=== PATIENT | female | born 1945 | race Caucasian/White ===

== ENCOUNTER → 2019-04-26 | Outpatient (CLI) | payer SELFPAY | PROVIDERS: Family Provider Family Medicine; Visit Provider Thoracic Surgery (Cardiothoracic Vascular Surgery) | DX: R09.89 Other specified symptoms and signs involving the circulatory and respiratory systems (principal) | CPT/HCPCS: 93880 ==

== ENCOUNTER 2019-06-07 12:43 | Observation (INO) | payer MEDICARE, OTHER, MEDICAID, SELFPAY ==
[2019-06-07] VITALS (56 sets, daily range): BP systolic 105–152; BP diastolic 50–86; PULSE 76–98; RESP 12–29; TEMP 36.6–37.1; O2SAT 94–99
--- NOTE | 2019-06-07 06:00 | XACV_ITS ---
Ht: 160 cm Wt: 73 kg BSA: 1.83 m2 Gender: Female : 1945 Any Known Allergies: Other Exam Priority: Routine Procedure(s): Procedure Description: Diagnostic procedure Procedure Description: Right Heart Catheterization Procedure Description: O2 saturation Procedure Description: Coronary Angiography Diagnostic Cath Status: Elective Diagnostic Findings LM has 0% stenosis. LAD has 0% stenosis. RCA has 0% stenosis. mCIRC: Mild 30% stenosis, REDDY: 3 flow. Coronary angiography shows right dominance. Conclusions There is mild coronary artery disease with one vessel disease. Indication for left and right heart CATHETERIZATION: Preop examination before aortic valve surgery. Recommendations 1-Return to inpatient for close monitoring and routine cath care2-Risk factor modification for secondary prevention3-Refer to CT surgery for assessment of aortic valve replacement4-Continue optimal medical management5-Follow up with Dr. Deluca in four weeks and your primary care in 10 days. Pressures Phase:Rest AO : 140 mmHg / 59 mmHg ( 89 mmHg ) @ 4:34:00 AM RV : 31 mmHg / -5 mmHg / @ 4:26:00 AM 34 mmHg / -7 mmHg / @ 4:31:00 AM PA : 34 mmHg / 9 mmHg ( 18 mmHg ) @ 4:25:00 AM RA : a wave = v wave = mean = 0 mmHg @ 4:28:00 AM a wave = v wave = mean = 0 mmHg @ 4:30:00 AM O2 Content Phase:Rest PA : O2 Content O2: 74.6 % @ 4:34:00 AM Saturations Phase:Rest AO : 93 % @ 4:28:00 AM RA : 74 % @ 4:30:00 AM RV : 72 % @ 4:25:00 AM PA : 75 % @ 4:34:00 AM Cardiac Output Phase:Rest Mario : 5 l/min @ 4:34:00 AM Mario Cardiac Index: 3 L/min/m2 @ 4:34:00 AM Clinical Evaluation EBL: 5mL-10mL Procedural Details Procedure Consent Obtained. Pre-Procedure Time Out. Identified patient by full name and date of as verbalized by the patient/guarantor. Does the consent match the physician's order: Yes. Accurate & Complete Informed Consent: Yes. Inpatient/Outpatient History & Physical on Chart: Yes. If H&P is completed, is and addenduem needed: No; If yes, is the addendum complete: N/A. Visualize and Verify Site with Patient/Guarantor: N/A. Relevant Radiology Images available: N/A. Pre-op teaching completed and patient verbalized understanding. The risks, benefits, and alternatives of sedation and/or procedure were discussed by physician. The patient agrees to continue. Procedure started. Correct patient, site and procedure confirmed by cath team. PERRLA. Strong, equal hand furnishings conservator bilaterally. Lungs clear x 5 lobes. IV Site on Arrival: 22 gauge in the right anticubital. IV Fluids: 0.9% NaCl at KVO. 0 mL infused prior to car barn laborer. Pre Procedural Pulses: bilateral dorsalis pedis was 2+. Pre Procedural Pulses: bilateral posterior tibial was Doppled. Pre Procedural Pulses: bilateral radial was 1+. bilateral groins was prepped with chloroprep then draped in the usual sterile fashion. Physician notified. Baseline sample Acquired. HR: 79 BPM. Equipment: 6F - Femoral. Cardiac Cath Pack. ACIST Manifold Kit Model BT 2000. Heparinized Saline (2 units/mL), 1000 mL bag. Physician arrived. Cardiovascular Instability: No. Physician scrubbed in. Immediate Pre-Procedure Time Out. Correct Patient: Yes; Correct Procedure: Yes; Correct Site: Yes; Correct Patient Position: Yes; Correct Supplies: Yes; Dried Flammable Prep: Yes; Blood Products Available: N/A;. Lidocaine 1% infiltrated to the right groin. Venous access obtained with a micropuncture set. Arterial access obtained with micropuncture set. [place]-Joanne MON catheter inserted through venous sheath. [place]-Joanne out. A 5 gambian JL4 catheter in over wire through femoral artery sheath. Multiple views taken of left coronary artery. Catheter removed over the standard wire. A CRD 5F JR4 Diagnostic Catheter was advanced over the wire and used for Right coronary angiography. Multiple views taken of right coronary artery. Physician scrubbed out. A Manual Compression was successful obtaining hemostatsis at the Right Femoral artery insertion site. A Manual Compression was successful obtaining hemostatsis at the Right Femoral vein insertion site. Sheath(s) removed and manual pressure held until hemostasis was achieved. Sterile 4x4 and Op-site applied to the puncture site. No oozing or hematoma noted. Post sheath removal instructions were given and the patient verbalized understanding. Post Procedure: Pulses reassessed and unchanged. PERRLA. Strong, equal hand furnishings conservator bilaterally. No VTE prophylaxis required. Medication's Wasted: Lidocaine 1% = 10 mL. Medication's Wasted: Heparin = 1000 units. Medication's Wasted: Other = morphine 3 mg. Total IV fluids: 69.4 mL. Post-op diagnosis: severe aorta valve stenosis, pre op, normal coronaries. Complications: none. Estimated blood loss: 5mL-10mL. [facility] Clinical Fraility Score: 4: Vulnerable. Lead Process Engineer Indications: Valvular Disease. Chest Pain Symptom Assessment: Atypical Angina. Procedure completed. Patient transferred by stretcher to CPRU. Vital chart was stopped. Site: Right Femoral vein Sheath Size: 6 Fr Hemostasis Method: Manual Compression Hemostasis Success: Successful Site: Right Femoral artery Sheath Size: 5 Fr Hemostasis Method: Manual Compression Hemostasis Success: Successful Procedure Medications Start: 10:04 AM Stop: 10:04 AM Medication: Versed Amount: 1 mg Route: I.V. Start: 10:04 AM Stop: 10:04 AM Medication: Morphine Amount: 1 mg Route: I.V. Start: 10:35 AM Stop: 10:35 AM Medication: Versed Amount: 1 mg Route: I.V. I, the attending physician, have reviewed and verified all procedure medications. Yes, all medications given per verbal order History/Risk Factors Hypertension: Yes Dyslipidemia: No Peripheral Arterial Disease (PAD): No Myocardial Infarction ([place]): No Obesity: No Renal Disease: No Tobacco Use: Former Prior Interventions PCI: No CABG: No Valve Surgery: No Report Signatures Finalized by:Brent Deluca MD on 06/16/2019 1:26:21 PM
[2019-06-07] MEDS: diphenhydrAMINE 50 mg Capsule PO (08:11)
[2019-06-07 08:49] LABS: INR 1.03 (0.8-1.2)
[2019-06-07 08:59] LABS: Anion Gap 17.4 (5-19); Blood Urea Nitrogen 17 mg/dL (8-23); Calcium 9.6 mg/dL (8.5-10.5); Carbon Dioxide 28 mmol/L (22-29); Chloride 101 mmol/L (98-107); Glucose 123 mg/dL (65-115); Osmolality Calculated 292 mOsm/kg (285-295); Potassium 4.4 mmol/L (3.5-5.1); Sodium 142 mmol/L (136-145)
[2019-06-07 09:12] LABS: Basophils # 0.1 10^3/uL (0.0-0.1); Basophils % 0.6 %; Eosinophils # 0.1 10^3/uL (0.0-0.8); Eosinophils % 1.6 %; Hemoglobin 14.6 g/dL (11.5-15.3); Lymphocytes # 1.9 10^3/uL (0.8-4.8); Lymphocytes % 21.3 %; Mean Corpuscular HGB Conc 32.4 g/dL (30.0-36.0); Mean Corpuscular Hemoglobin 30.6 pg (28.0-34.0); Mean Corpuscular Volume 94.3 fL (81-99); Mean Platelet Volume 11.1 fL (7.4-10.4); Monocytes # 0.9 10^3/uL (0.2-0.9); Monocytes % 10.3 %; Neutrophils # 5.9 10^3/uL (1.8-7.7); Neutrophils % 65.6 %; Nucleated Red Blood Cells % 0 %; Platelet Count 219 10^3/cmm (130-400); Red Blood Count 4.77 10^6/uL (4.1-5.3); Red Cell Distribution Width 12.6 % (12.1-15.1); White Blood Count 8.9 10^3/uL (4.0-10.0)
--- NOTE | 2019-06-07 09:18 | P.HP_ITS ---
Providers/Chief Complaint Primary Care Provider: Mandeep Madrigal MD Chief Complaint: heart cath History of Present Illness Nancy Brasher is a 74 year old female Past medical history significant for COPD worsening of shortness of breath dizziness and recently and severe aortic stenosis. She was referred to Dr. Luciano for assessment in regards to aortic valve replacement. Today she is here for preop left and right heart catheterization . According to her she continued to worsen with shortness of breath and had dizzy spells. Calculated aortic valve area by echo is 0.8 cm? with mean gradient of 50mmHg. Velocity across the aortic valve was 4.7 m/s. She denies PND orthopnea. Review of Systems Const: Denies: fever or body aches Card: Reports: chest pain Resp: Reports: shortness of breath GI: Denies: abdominal pain, nausea or vomiting Neuro: Denies: headache or numbness in extremities Psych: Denies: anxiety Yong/Lymph: Reports: easy bruising Medications/Allergies Home Medications Medication Instructions Recorded Confirmed Last Taken Type Abilify 10 mg PO DAILY 05/16/19 06/06/19 Unknown History Ambien 10 mg PO BEDTIME 05/16/19 06/06/19 Unknown History Dexilant 60 mg PO DAILY 05/16/19 06/06/19 Unknown History Silenor 3 mg PO DAILY 05/16/19 06/06/19 Unknown History cetirizine 10 mg PO DAILY 05/16/19 06/06/19 Unknown History estradiol 0.5 mg PO DAILY 05/16/19 06/06/19 Unknown History fluticasone propionate 1 puff INHALATION DAILY 05/16/19 06/06/19 Unknown History gabapentin 100 mg PO DAILY 05/16/19 06/06/19 Unknown History lisinopril 2.5 mg PO DAILY 05/16/19 06/06/19 Unknown History montelukast 10 mg PO DAILY 05/16/19 06/06/19 Unknown History rivastigmine [Exelon] 1 patch TRANSDERMAL DAILY 05/16/19 06/06/19 Unknown History simvastatin 40 mg PO BEDTIME 05/16/19 06/06/19 Unknown History venlafaxine 150 mg PO DAILY 05/16/19 06/07/19 06/06/19 19:30 History Allergies Allergy/AdvReac Type Severity Reaction Status Date / Time buspirone Allergy Unknown Verified 05/16/19 11:03 cefotaxime [From Claforan] Allergy ALGY-Rash Verified 05/16/19 11:03 etodolac Allergy Unknown Verified 05/16/19 11:03 fentanyl Allergy Unknown Verified 06/06/19 13:52 metronidazole [From Flagyl] Allergy ALGY-Rash Verified 05/16/19 11:03 rofecoxib [From Vioxx] Allergy ALGY-Rash Verified 05/16/19 11:03 sertraline [From Zoloft] Allergy ALGY-Rash Verified 05/16/19 11:03 Sulfa (Sulfonamide Allergy ALGY-Rash Verified 05/16/19 11:03 Antibiotics) valacyclovir [From Valtrex] Allergy ALGY-Rash Verified 05/16/19 11:03 PFSH Acute PFSH: Statuses (acute, chronic, etc) shown below reflect problem list status as previously entered and may not be historically accurate Medical History (Updated 06/07/19 @ 09:27 by Brent Deluca MD) Aortic stenosis, severe (Acute) Arthropathy, unspecified (Acute) HTN (hypertension) (Acute) Irritable bowel syndrome (Acute) Peripheral vertigo (Acute) RLS (restless legs syndrome) (Acute) Sleep apnea (Acute) Surgical History (Updated 06/07/19 @ 09:27 by Brent Deluca MD) History of appendectomy (Acute) Hx of cholecystectomy (Acute) Social History Smoking and tobacco status: former smoker Quit status (tobacco): has quit using tobacco Vitals/I&O/Wt Last Vital Signs Temp 97.9 F 06/07/19 08:40 Pulse 70 06/07/19 09:00 Resp 12 06/07/19 09:00 BP 112/66 06/07/19 09:00 Pulse Ox 97 06/07/19 09:00 Physical Exam Narrative: EXAM NARRATIVE: GENERAL: Patient is alert, awake and oriented x3. NECK: No jugular vein distension. HEENT: No cyanosis. No icterus. No pallor. HEART: Regular S1 3/6 ejection murmur, rub or gallop. LUNGS: Clear to auscultate bilaterally. ABDOMEN: Soft, nontender and nondistended. Positive bowel sounds. No guarding, rebound or tenderness. CENTRAL NERVOUS SYSTEM: Grossly nonfocal. EXTREMITIES: Lower extremities without edema bilaterally. Right radial pulse diminished Data : 06/07/19 08:25 06/07/19 08:25 A&P Assessment and plan (1) Aortic stenosis, severe: Patient has severe aortic valve stenosis. She is here for preop left and right Heart CATHETERIZATION For proceeding with the surgery. Patient and her family by bedside was explained all risks benefits and alternative for the procedure. She has been explained in case of lesion she may can have a PCI versus CABG along with AVR. She would like to proceed with it. Status: Acute Code(s): I35.0 - Nonrheumatic aortic (valve) stenosis (2) HTN (hypertension): Well controlled. Continue current regimen Status: Acute Code(s): I10 - Essential (primary) hypertension Attestations Medical Necessity Statement*: I'm not expecting her stay to cross more than 1 midnight. Coding Level of Care Code Acute Office Technology Instructor for Chg Fwd History Expanded Problem Focused Exam Expanded Problem Focused Medical Decision Making Moderate Complexity Diagnoses Aortic stenosis, severe I35.0 HTN (hypertension) I10
--- NOTE | 2019-06-07 11:00 | PC.NURSE ---
BACK FROM BOARD CERTIFIED BEHAVIORAL ANALYST RECEIVED THE PATIENT BACK FROM THE CATH VIA COT S/P DIAGNOSTIC LEFT AND RIGHT HEART CATH. PATIENT DROWSY BUT AWAKENS TO NAME EASILY. THE VENOUS AND ARTERIAL SHEATHS IN THE RIGHT GROIN WERE REMOVED IN THE BOARD CERTIFIED BEHAVIORAL ANALYST. DRESSING DRY AND INTACT. NO BLEEDING OR HEMATOMA NOTED. POST SHEATH REMOVAL EDUCATION DONE WITH THE PATIENT. SHE VERBALIZED HER UNDERSTANDING. LEGAL BILLER PLACED AND VITAL SIGNS OBTAINED. WILL CONTINUE TO MONITOR. AWAITING ICU OVER FLOW BED FOR TRANSFER.
== END 2019-06-07 18:40 | disposition home or self-care (01) ==
LOC: CCL 12:50 → ICU 12:50
PROVIDERS: Admitting Provider Internal Medicine Cardiovascular Disease; Family Provider Family Medicine; PCP Family Medicine; Visit Provider Internal Medicine Cardiovascular Disease
DX: I25.10 Atherosclerotic heart disease of native coronary artery without angina pectoris (principal); I35.0 Nonrheumatic aortic (valve) stenosis; I10 Essential (primary) hypertension; J44.9 Chronic obstructive pulmonary disease, unspecified; G47.30 Sleep apnea, unspecified; Z87.891 Personal history of nicotine dependence
CPT/HCPCS: 12345; 80048; 85025; 85610; 93456; C1751; C1769; C1887; C1894; G0378; J1644; J2001; J2250; J2270; J7030; Q0163; Q9967

== ENCOUNTER 2019-06-29 14:35 | Outpatient (CLI) | payer MEDICARE, OTHER, MEDICAID, SELFPAY ==
--- NOTE | 2019-06-29 16:21 | PFTS_ITS ---
Date of Study:06/29/19 Date of Dictation: MECHANICS: Forced vital capacity (FVC) is reduced. Forced expiratory volume in one second (FEV1) is reduced. FEV1/FVC is normal. FLOW VOLUME LOOP: Narrow. LUNG VOLUMES: Total lung capacity (TLC) is reduced. Residual volume (RV) is normal. DIFFUSING CAPACITY FOR CARBON MONOXIDE: Normal. INTERPRETATION: The pulmonary function tests are consistent with moderate restriction. There is no significant postbronchodilator response. The preserved inspiratory capacity with significantly diminished expiratory reserve volume and a normal gas diffusion is suggestive of extrapulmonary cause of restriction. Gas exchange (DLCO) is normal. MTDD
== END 2019-06-29 14:36 | disposition home or self-care (01) ==
PROVIDERS: Family Provider Family Medicine; PCP Family Medicine; Visit Provider Thoracic Surgery (Cardiothoracic Vascular Surgery)
DX: R06.00 Dyspnea, unspecified (principal)
CPT/HCPCS: 94060; 94726; 94729; J7611

== ENCOUNTER 2019-10-12 08:11 | Outpatient (CLI) | payer MEDICARE, OTHER, MEDICAID, SELFPAY ==
--- NOTE | 2019-10-12 08:45 | USCV_ITS ---
Nancy Brasher Age: 74 Gender: F : 1945 Exam Date: 10/12/2019 08:34 Ordering Phys: Guerrero Luciano MD (Andy) ([email or web address]) Technologist: Candida Yañez [place] [facility] [place]: PRE OP RIGHT LEFT LOWER EXTREMITY Diameter Diameter (cm) (cm) 0.38 High Thigh 0.35 0.36 Mid Thigh 0.29 0.27 Above Knee 0.37 0.26 Below Knee 0.25 0.23 Mid Calf 0.24 0.19 Ankle 0.18 RIGHT LEFT Findings Normal venous dimensions bilaterally The veins are easily compressible Conclusions Patent normal caliber veins from the high thigh to below knee levels- bilaterally with no evidence of thrombosis Venous dimensions as mentioned above Dr Zarina Pride MD FAC (Electronically Signed) Final Date: 13 October 2019 08:15 S
--- NOTE | 2019-10-12 10:48 | XR_ITS ---
WS: [id number] XR chest 2V* [id number] REASON FOR EXAM: AVR FINDINGS: Mild scoliotic curve convex to the left. Low seen degenerated of arthritis is seen. Comparisons were made to June 22, 2018. The lung [place] are well aerated. There is no pneumonia, pleural effusion, pulmonary edema, or mass e ffect. The hilum and apices are normal. No osseous abnormalities in the lungs are seen. 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
== END 2019-10-12 08:12 | disposition home or self-care (01) ==
LOC: RAD 08:17
PROVIDERS: Family Provider Family Medicine; PCP Family Medicine; Visit Provider Thoracic Surgery (Cardiothoracic Vascular Surgery)
DX: Z01.818 Encounter for other preprocedural examination (principal)
CPT/HCPCS: 71046; 93970

== ENCOUNTER 2019-10-17 05:31 | Inpatient (IN) | payer MEDICARE, OTHER, MEDICAID, SELFPAY ==
--- NOTE | 2019-10-12 09:32 | ECG_ITS ---
[facility] Test Date: 2019-10-12 Pat Name: Nancy Brasher Department: Room: Gender: Female Process Control Operator: : 1945 Requested By: Guerrero Luciano Order Number: [id number] Jenkins MD: Zarina Pride M.D. Measurements Intervals [place] Rate: 97 P: 42 [place]: 146 QRS: 6 QRSD: 82 T: 139 QT: 353 QTc: 450 Interpretive Statements SINUS RHYTHM POSSIBLE LEFT ATRIAL ENLARGEMENT [-0.1mV P WAVE IN V1/V2] LEFT VENTRICULAR HYPERTROPHY AND ST-T CHANGE [VOLTAGE CRITERIA PLUS ST/T ABNORMALITY] WARNING: DATA QUALITY MAY AFFECT INTERPRETATION Compared to ECG 06/23/2018 00:01:22 No significant changes Electronically Signed On 10-12-2019 19:33:23 CDT by Zarina Pride M.D. [id number]
[2019-10-12 10:21] LABS: INR 0.94 (0.8-1.2); Partial Thromboplastin Time 27.6 SECONDS (23.9-36.7)
[2019-10-12 10:22] LABS: Basophils # 0.1 10^3/uL (0.0-0.1); Basophils % 0.7 %; Eosinophils # 0.1 10^3/uL (0.0-0.8); Eosinophils % 1.6 %; Hematocrit 41.2 % (37.0-47.0); Hemoglobin 13.3 g/dL (11.5-15.3); Lymphocytes # 2.1 10^3/uL (0.8-4.8); Lymphocytes % 24.4 %; Mean Corpuscular HGB Conc 32.3 g/dL (30.0-36.0); Mean Corpuscular Hemoglobin 30.8 pg (28.0-34.0); Mean Corpuscular Volume 95.4 fL (81-99); Mean Platelet Volume 10.9 fL (7.4-10.4); Monocytes # 0.9 10^3/uL (0.2-0.9); Monocytes % 9.9 %; Neutrophils # 5.4 10^3/uL (1.8-7.7); Neutrophils % 62.4 %; Nucleated Red Blood Cells % 0 %; Platelet Count 216 10^3/cmm (130-400); Red Blood Count 4.32 10^6/uL (4.1-5.3); Red Cell Distribution Width 13.2 % (12.1-15.1); White Blood Count 8.6 10^3/uL (4.0-10.0)
[2019-10-12 10:27] VITALS: PULSE 89; RESP 16; O2SAT 97
--- NOTE | 2019-10-12 10:29 | P.ANESASSM_ITS ---
Pre-Anesthetic Assessment Pre-Anesthetic Assessment: Height/Weight: Height 1.61 m Weight 77.111 kg Preop Diagnosis: Severe aortic valve stenosis Proposed Procedure: Operation Date: 10/17/19 07:00 Proposed Procedures p Aortic Valve Replacement(Not Applicable) - Guerrero Luciano MD Social: Social History: Tobacco (quit 1979) and No alcohol Exam: Pre-Anes Outpt Exam: alert, oriented x 3, clear to auscultation bilaterally (course bilat) and regular rate & rhythm Airway: Submandibular: WNL Cervical ROM: WNL MP: 3 Dentition: False (upper and lower) History/ROS: No significant history except as noted Pulmonary: Pulmonary: COPD, OSHEA and Sleep apnea CV/HEM: CV/HEM: HTN Comments: severe : : None reported Hepatic: Hepatic: None reported GI: GI: GERD (controlled) Comments: diverticulitis Metabolic: Metabolic: Hyperlipidemia Musc/skel: Musc/skel: Lower Back Pain and OA/DJD Neuropsych: Neuropsych: Bipolar Anesthetic Plan: ASA status: 4 Anesthesia: Anesthesia Evaluation and General Risk of > 500 ml blood loss (7ml/kg in children): Yes, adequate IV access and fluids planned PFSH Anesthesia PFSH: Medical History Aortic stenosis, severe Arthropathy, unspecified Backache Bipolar affective disorder Chronic obstructive pulmonary disease, unspecified HTN (hypertension) Hypercholesterolemia Irritable bowel syndrome Labyrinthitis Peripheral vertigo RLS (restless legs syndrome) Sleep apnea Surgical History H/O eye surgery H/O foot surgery H/O oral surgery History of abdominal hysterectomy History of appendectomy Hx of cholecystectomy Social History Smoking and tobacco status: former smoker Quit status (tobacco): has quit using tobacco Year quit tobacco: 1979 - ciggs x 6 Years Alcohol intake: never Lives independently: Yes Household members: none Marital status: / Current occupational status: retired and disabled Pets and animals: Yes Pets & animals: dog(s) History of recent travel: No Current gender identity: Female Data Anesthesia CBC & Chem 7: 10/12/19 10:00 Other Labs: Laboratory Results - last 48 hr 10/12/19 10/12/19 10:00 10:00 WBC 8.6 RBC 4.32 Hgb 13.3 Hct 41.2 MCV 95.4 MCH 30.8 MCHC 32.3 RDW 13.2 Plt Count 216 MPV 10.9 H Neut % (Auto) 62.4 Lymph % (Auto) 24.4 [place] % (Auto) 9.9 Eos % (Auto) 1.6 Baso % (Auto) 0.7 Neut # (Auto) 5.4 Lymph # (Auto) 2.1 [place] # (Auto) 0.9 Eos # (Auto) 0.1 Baso # (Auto) 0.1 Nucleated RBC % (auto) 0 Nucleated RBCs # 0.0 PT 12.90 INR 0.94 APTT 27.6 Cardiac Studies: No Data to Display
[2019-10-12 10:32] LABS: Add Urine Microscopic? NO
[2019-10-12 10:35] VITALS: PULSE 93
[2019-10-12 10:37] LABS: Bilirubin Urine Neg (NEGATIVE); Blood Urine Neg (Negative); Glucose Urine UA Norm (Normal); Ketones Urine Negative (Negative); Leukocyte Esterase Urine Negative (Negative); Nitrate Urine Negative (Negative); Protein Urine Neg (Negative); Specific Gravity, Urine 1.015 (1.005-1.030); Urine Appearance Clear (CLEAR); Urine Color Yellow (Yellow); Urobilinogen Urine Norm (Negative); pH Urine 5 (5-7)
[2019-10-12 10:43] LABS: Alanine Aminotransferase 28 U/L (0-33); Alkaline Phosphatase 96 IU/L (35-105); Anion Gap 16.8 (5-19); Aspartate Amino Transferase 31 U/L (0-32); Blood Urea Nitrogen 16 mg/dL (8-23); Carbon Dioxide 28 mmol/L (22-29); Chloride 96 mmol/L (98-107); Globulin 3.2 g/dL (1.3-4.6); Glucose 214 mg/dL (65-115); Osmolality Calculated 285 mOsm/kg (285-295); Potassium 4.8 mmol/L (3.5-5.1); Sodium 136 mmol/L (136-145); Thyroid Stimulating Hormone 2.16 uIU/mL (0.27-4.20); Total Bilirubin 0.2 mg/dL (0.15-1.2); Total Protein 7.2 g/dL (6.6-8.7)
[2019-10-12 11:07] LABS: Free T4 Free Thyroxine 0.92 ng/dL (0.82-1.77)
[2019-10-17] VITALS (79 sets, daily range): BP systolic 80–168; BP diastolic 40–100; PULSE 39–142; RESP 12–100; TEMP 36.4–38.3; O2SAT 94–100
[2019-10-17 06:05] LABS: Glucose Point of Care 130 mg/dL (70-110)
--- NOTE | 2019-10-17 06:19 | W.PM.OPSUD ---
Surgery/Procedure H&P Update DATE OF PROCEDURE: October 17, 2019 DATE H&P PERFORMED: 10/06/19 H&P UPDATE INFORMATION: I have reviewed H&P completed within last 30 days, I have examined patient prior to procedure and No changes to prior documentation CHANGES TO PREVIOUS DOCUMENTATION: We will be keeping in touch with her sister, Pearl, as to updates. PREOP DIAGNOSIS: Severe aortic valve stenosis PRIMARY INDICATION FOR PROCEDURE: Severe, highly symptomatic, aortic valve stenosis PLANNED PROCEDURE: Operation Date: 10/17/19 07:30 Proposed Procedures p Aortic Valve Replacement(Not Applicable) - Guerrero Luciano MD
[2019-10-17] MEDS: sodium chloride 0.9% 1,000 ML 30 ML IV (06:20)
--- NOTE | 2019-10-17 08:14 | XR_ITS ---
WS: [id number] CHEST XRAY TECHNIQUE: Portable chest. CLINICAL INFORMATION: CHEST TUBE PLACEMENT COMPARISON: October 12, 2019 FINDINGS: Right IJ sheath. [place]-Joanne catheter. Endotracheal tube with tip above the malaika. Enteric t ube with tip in the stomach. Heart: Sternotomy with mediastinal clips. Cardiomegaly. Lungs: Mild pulmonary vascular congestion. No visualized pneumothorax. Bones: Normal visualized bony structures. XR/XR chest 1V portable [id number] IMPRESSION: 1. No visualized retained foreign objects. 2. Postoperative changes described above. 3. Cardiomegaly with mild pulmonary vascular congestion. 4. No visualized pneumothorax.
[2019-10-17] MEDS: cefUROXime 1,500 MG in sodium chloride 0.9% (plus) 50 ML 100 MG IV ×2 (08:40→18:29)
[2019-10-17] MEDS: vancomycin 1,000 MG SDV 3000 MG IRRIGATION (08:55)
[2019-10-17] MEDS: thrombin 5,000 unit SDV 5000 UNIT XX (09:21)
--- NOTE | 2019-10-17 15:27 | ECG_ITS ---
[facility] Test Date: 2019-10-17 Pat Name: Nancy Brasher Department: Room: ICU11 Gender: Female Die Setter: : 1945 Requested By: Guerrero Luciano Order Number: [id number] Jenkins MD: Mónica Diaz M.D. Measurements Intervals [place] Rate: 86 P: -85 [place]: 152 QRS: -20 QRSD: 88 T: 116 QT: 425 QTc: 510 Interpretive Statements ELECTRONIC ATRIAL PACEMAKER ELECTRONIC VENTRICULAR PACEMAKER Compared to ECG 10/12/2019 10:12:52 Sinus rhythm no longer present Left ventricular hypertrophy no longer present ST (T wave) deviation no longer present Electronically Signed On 10-17-2019 18:34:19 CDT by Mónica Diaz M.D. [id number]
[2019-10-17 15:51] LABS: Basophils # 0.1 10^3/uL (0.0-0.1); Basophils % 0.3 %; Eosinophils % 0.2 %; Hematocrit 37.5 % (37.0-47.0); Hemoglobin 12.5 g/dL (11.5-15.3); Lymphocytes % 6.1 %; Mean Corpuscular HGB Conc 33.3 g/dL (30.0-36.0); Mean Corpuscular Hemoglobin 30.6 pg (28.0-34.0); Mean Corpuscular Volume 91.7 fL (81-99); Mean Platelet Volume 10.8 fL (7.4-10.4); Monocytes # 1.2 10^3/uL (0.2-0.9); Monocytes % 7.7 %; Neutrophils # 13.4 10^3/uL (1.8-7.7); Nucleated Red Blood Cells % 0 %; Platelet Count 99 10^3/cmm (130-400); Red Blood Count 4.09 10^6/uL (4.1-5.3); Red Cell Distribution Width 13.8 % (12.1-15.1); White Blood Count 16.1 10^3/uL (4.0-10.0)
[2019-10-17 16:01] LABS: INR 1.31 (0.8-1.2)
[2019-10-17 16:02] LABS: Partial Thromboplastin Time 30.8 SECONDS (23.9-36.7)
[2019-10-17 16:12] LABS: Blood Urea Nitrogen 15 mg/dL (8-23); Calcium 7.8 mg/dL (8.5-10.5); Carbon Dioxide 20 mmol/L (22-29); Chloride 113 mmol/L (98-107); Creatinine Clr Calc Pharmacy 62.5007; Glucose 153 mg/dL (65-115); Magnesium 3.8 mg/dL (1.7-2.3); Osmolality Calculated 297 mOsm/kg (285-295); Sodium 144 mmol/L (136-145)
[2019-10-17 16:12] LABS: ABG PCO2 26.3 mmHg (35-45); Base Excess ABG -1.5 mmol/L (-2.0-2.0); Blood Gas Sample Type Arterial; Blood Gas Tidal Volume 0.55; HCO3 ABG 20.4 mmol/L (22-26); Oxygen Device VENT
[2019-10-17] MEDS: propofol 1,000 MG/100 ML INJ 23.1 MG IV ×2 (16:21→19:00)
[2019-10-17] MEDS: albumin 12.5 GM/250 ML VIAL IV ×3 (16:21→22:28)
[2019-10-17] MEDS: sodium chloride 0.9% 1,000 ML 75 ML IV (16:21)
[2019-10-17] MEDS: fentaNYL 50 mcg/mL INJ 2mL 100 MCG (16:22)
[2019-10-17] MEDS: labetalol 5 mg/mL SDV 20mL 10 MG IVP ×2 (16:24→17:10)
[2019-10-17] MEDS: fentaNYL 50 mcg/mL INJ 2mL IVP ×2 (16:31→20:33)
[2019-10-17] MEDS: chlorhexidine gluconate 0.12% Btl 473 mL 15 ML MUCOUS MEM (18:30)
[2019-10-17 19:21] LABS: Basophils % 0.2 %; Eosinophils % 0.2 %; Hematocrit 33.4 % (37.0-47.0); Lymphocytes # 0.8 10^3/uL (0.8-4.8); Lymphocytes % 7.1 %; Mean Corpuscular HGB Conc 32.9 g/dL (30.0-36.0); Mean Corpuscular Hemoglobin 30.5 pg (28.0-34.0); Mean Corpuscular Volume 92.5 fL (81-99); Mean Platelet Volume 10.7 fL (7.4-10.4); Monocytes # 1.2 10^3/uL (0.2-0.9); Neutrophils # 9.6 10^3/uL (1.8-7.7); Neutrophils % 80.5 %; Nucleated Red Blood Cells % 0 %; Platelet Count 100 10^3/cmm (130-400); Red Blood Count 3.61 10^6/uL (4.1-5.3); Red Cell Distribution Width 14.1 % (12.1-15.1); White Blood Count 11.9 10^3/uL (4.0-10.0)
[2019-10-17 19:34] LABS: Anion Gap 14.2 (5-19); Blood Urea Nitrogen 16 mg/dL (8-23); Calcium 7.5 mg/dL (8.5-10.5); Carbon Dioxide 22 mmol/L (22-29); Chloride 113 mmol/L (98-107); Glucose 192 mg/dL (65-115); Magnesium 3.4 mg/dL (1.7-2.3); Osmolality Calculated 300 mOsm/kg (285-295); Potassium 5.2 mmol/L (3.5-5.1); Sodium 144 mmol/L (136-145)
--- NOTE | 2019-10-17 21:40 | XRR_ITS ---
PROCEDURE INFORMATION: Exam: XR Chest, 1 View Exam date and time: 10/17/2019 10:24 PM Age: 74 years old Clinical indication: Device placement; Other: Og tube placement; Additional info: Left mediastinal tube not draining TECHNIQUE: Imaging protocol: XR of the chest Views: 1 view. COMPARISON: No relevant prior studies available. FINDINGS: Tubes, catheters and devices: Endotracheal tube tip resides near or minimally above the malaika. Enteric tube extends to the left abdomen with the tip area of fundus. [place]-Joanne catheter and additional adjacent right internal jugular central vascular catheter are positioned area of main pulmonary trunk and superior vena cava respectively. There are numerous additional monitor lead wires and tubular structure superimposing the chest with likely additional mediastinal drain with tip position obscured. Lungs: Low lung volumes. Minor atelectasis or scarring right lower lung. Retrocardiac left lower lung consolidation and suspected small left effusion which could be partially loculated. Interstitial crowding with low lung volumes. Pleural space: No pneumothorax. Heart/Mediastinum: Cardiac enlargement. Bones/joints: Osteopenia. Postoperative sternotomy. XR/XR chest 1V portable [id number] IMPRESSION: 1. Retrocardiac left lower lung opacity and likely partially loculated left effusion. Findings could reflect postoperative atelectasis. 2. Additional life support structures as described above.
[2019-10-17 21:56] LABS: ABG PCO2 28.8 mmHg (35-45); ABG PH Result 7.49 (7.35-7.45); Alveolar-Arterial Oxygen Gradi 156.7 mmHg (5-10); Arterial Blood Gas Hematocrit 30.5 % (37-47); Base Excess ABG -0.7 mmol/L (-2.0-2.0); Blood Gas Sample Type Arterial; Blood Gas Tidal Volume 0.5; Carboxyhemoglobin 0.7 %THgb (0.4-20.1); HGB O2 Sat 96.1 % (95-100); Methemoglobin 0.6 % (0.4-1.5); Oxygen Device VENT; Oxygen Saturation ABG 97.4; PO2 ABG 84.4 mmHg (80.0-100.0); Potassium Level - ABG 4.2 mmol/L (3.5-5.0)
[2019-10-17] MEDS: aspirin 81 mg Chew Tablet PO (22:32)
[2019-10-17 23:05] LABS: Basophils % 0.3 %; Eosinophils % 0.2 %; Hematocrit 29.4 % (37.0-47.0); Hemoglobin 9.5 g/dL (11.5-15.3); Lymphocytes # 0.7 10^3/uL (0.8-4.8); Lymphocytes % 7.4 %; Mean Corpuscular HGB Conc 32.3 g/dL (30.0-36.0); Mean Corpuscular Hemoglobin 29.5 pg (28.0-34.0); Mean Corpuscular Volume 91.3 fL (81-99); Monocytes # 1.1 10^3/uL (0.2-0.9); Monocytes % 11.3 %; Neutrophils # 7.9 10^3/uL (1.8-7.7); Neutrophils % 79.8 %; Nucleated Red Blood Cells % 0 %; Platelet Count 86 10^3/cmm (130-400); Red Blood Count 3.22 10^6/uL (4.1-5.3); Red Cell Distribution Width 14.3 % (12.1-15.1); White Blood Count 9.9 10^3/uL (4.0-10.0)
[2019-10-17 23:11] LABS: Anion Gap 14.6 (5-19); Blood Urea Nitrogen 17 mg/dL (8-23); Calcium 7.3 mg/dL (8.5-10.5); Carbon Dioxide 22 mmol/L (22-29); Chloride 113 mmol/L (98-107); Glucose 154 mg/dL (65-115); Osmolality Calculated 299 mOsm/kg (285-295); Potassium 4.6 mmol/L (3.5-5.1); Sodium 145 mmol/L (136-145)
[2019-10-18] VITALS (109 sets, daily range): BP systolic 107–199; BP diastolic 36–129; PULSE 72–99; RESP 12–32; TEMP 36.8–37.7; O2SAT 90–98
[2019-10-18] MEDS: nitroglycerin drip 50 MG/250 ML PREMIX 15 MG IV (01:55)
[2019-10-18] MEDS: propofol 1,000 MG/100 ML INJ 13.9 MG IV ×3 (01:55→23:38)
[2019-10-18] MEDS: sodium chloride 0.9% 1,000 ML 75 ML IV ×2 (04:07→17:40)
[2019-10-18 04:17] LABS: ABG PH Result 7.45 (7.35-7.45)
[2019-10-18 04:18] LABS: ABG PCO2 34.4 mmHg (35-45); Base Excess ABG 0.1 mmol/L (-2.0-2.0); Blood Gas Operator Identificat JB; HCO3 ABG 34.1 mmol/L (22-26); Oxygen Device VENT; Oxygen Saturation ABG 96.7; PO2 ABG 81.1 mmHg (80.0-100.0); Potassium Level - ABG 4.2 mmol/L (3.5-5.0)
[2019-10-18 04:19] LABS: Alveolar-Arterial Oxygen Gradi 23.5 mmHg (5-10); Arterial Blood Gas Hematocrit 34.1 % (37-47); Blood Gas Drawn By BISJE; Blood Gas Sample Site ARTLINE; Blood Gas Sample Type ARTERIAL; Blood Gas Vent Mode SIMV
[2019-10-18 04:20] LABS: Carboxyhemoglobin 0.8 %THgb (0.4-20.1); HGB O2 Sat 95.3 % (95-100); Ionized Calcium Level - ABG 1.1 mmol/L (1.1-1.4); Methemoglobin 0.6 % (0.4-1.5); Total Hemoglobin 11.1 g/dL (12-16)
[2019-10-18 04:43] LABS: Basophils % 0.2 %; Eosinophils % 0.1 %; Hematocrit 32.5 % (37.0-47.0); Hemoglobin 10.8 g/dL (11.5-15.3); Lymphocytes # 0.9 10^3/uL (0.8-4.8); Lymphocytes % 7.1 %; Mean Corpuscular HGB Conc 33.2 g/dL (30.0-36.0); Mean Corpuscular Hemoglobin 30.8 pg (28.0-34.0); Mean Corpuscular Volume 92.6 fL (81-99); Mean Platelet Volume 11.2 fL (7.4-10.4); Monocytes # 1.6 10^3/uL (0.2-0.9); Monocytes % 12.9 %; Neutrophils # 9.5 10^3/uL (1.8-7.7); Nucleated Red Blood Cells % 0 %; Platelet Count 87 10^3/cmm (130-400); Red Blood Count 3.51 10^6/uL (4.1-5.3); Red Cell Distribution Width 14.4 % (12.1-15.1); White Blood Count 12.1 10^3/uL (4.0-10.0)
[2019-10-18 05:12] LABS: Anion Gap 12.4 (5-19); Blood Urea Nitrogen 16 mg/dL (8-23); Calcium 7.5 mg/dL (8.5-10.5); Carbon Dioxide 23 mmol/L (22-29); Chloride 113 mmol/L (98-107); Glucose 128 mg/dL (65-115); Osmolality Calculated 296 mOsm/kg (285-295); Potassium 4.4 mmol/L (3.5-5.1); Sodium 144 mmol/L (136-145)
[2019-10-18 05:15] LABS: INR 1.25 (0.8-1.2)
[2019-10-18 05:17] LABS: Partial Thromboplastin Time 34.5 SECONDS (23.9-36.7)
--- NOTE | 2019-10-18 05:33 | PM.PN ---
Subjective Subjective: Interval history: Postop day #1 status post AVR. Relatively uneventful night. She had substantially low chest tube output though her x-ray is relatively clear. FiO2 is down to 35%. She probably was dry when she returned from the OR. She is responded well to 2 units of albumin as well as 1 unit of packed RBCs. Morning chest x-ray is clear. Intake and output is up about 2.5 L. She does have some third spacing of this fluid obviously as well. Vitals/I&O/Wt Last Vital Signs Temp 99.7 F H 10/18/19 03:32 Pulse 89 10/18/19 05:20 Resp 12 10/18/19 03:49 BP 149/80 10/18/19 05:20 Pulse Ox 95 10/18/19 05:20 10/17/19 10/17/19 10/18/19 14:59 22:59 06:59 Intake Total 750 / 750 4250.464 / 5000.464 1591.587 / 6592.051 Output Total 3381 / 3381 312 / 3693 Balance 750 / 750 869.464 / 6075.510 7500.587 / 2899.051 Physical Exam Chest: COMMONS NORMALS: normal inspection of the chest (Surgical dressings in place. Wound VAC dressing in position.) Resp: COMMON NORMALS: clear to auscultation bilaterally AUSCULTATION: clear to auscultation bilaterally OTHER: Remains mechanically ventilated. Cardio: COMMON NORMALS: regular rate, regular rhythm and S1 normal heart sound present RATE: regular rate RHYTHM: regular rhythm HEART SOUNDS: S1 normal heart sound present OTHER: Heart sounds are a bit distant relative to the dressings and a surgical bra. Extremity: OTHER: There is 1+ peripheral edema. 2+ in the hands. Urinary Catheter Management^: Mccabe: Cath Placed During This Visit: yes Reason for Continuing Indwelling Catheter: Accurate Measurement of Urinary Output in Critically Ill Patients Urinary Catheter Date of Insertion: 10/17/19 Urinary Catheter Time of Insertion: 08:12 Data : 10/18/19 03:59 10/18/19 03:59 A&P Assessment and plan (1) Status post aortic valve replacement with bioprosthetic valve: Postop day #1 status post aortic valve replacement. Rather uneventful night. Plan: We will continue weaning sedation and ventilator and assess pulmonary status, with the understanding she does have known COPD. I am going to request consultation of our hospice colleagues related to her numerous psychotropic medications and assistance with management. I will also consult Dr. Deluca, her practice billing associate to assist. CBC, BMP, chest x-ray in a.m. Status: Acute Attestations Medical Necessity Statement*: Postop day #1 status post aortic valve replacement Time Spent in Patient Care: Greater than 35 minutes Coding Level of Care Code Acute Set Making Machine Operator for Keyanag Fwd Diagnoses Status post aortic valve replacement with bioprosthetic valve Z95.3
[2019-10-18 05:58] LABS: Glucose Point of Care 151 mg/dL (70-110)
[2019-10-18 05:58] LABS: Glucose Point of Care 145 mg/dL (70-110)
[2019-10-18 05:58] LABS: Glucose Point of Care 113 mg/dL (70-110)
[2019-10-18 05:58] LABS: Glucose Point of Care 116 mg/dL (70-110)
[2019-10-18 05:58] LABS: Glucose Point of Care 132 mg/dL (70-110)
[2019-10-18 05:58] LABS: Glucose Point of Care 116 mg/dL (70-110)
[2019-10-18 05:58] LABS: Glucose Point of Care 146 mg/dL (70-110)
[2019-10-18 05:58] LABS: Glucose Point of Care 114 mg/dL (70-110)
--- NOTE | 2019-10-18 06:00 | XRR_ITS ---
PROCEDURE INFORMATION: Exam: XR Chest, 1 View Exam date and time: 10/18/2019 4:32 AM Age: 74 years old Clinical indication: Device placement; Other: S/P avr; Prior surgery; Surgery date: Post-operative (0-2 days); Additional info: Pod#1 S/P avr TECHNIQUE: Imaging protocol: XR of the chest Views: 1 view. COMPARISON: CR XR chest 1V portable [id number] 10/17/2019 10:02 PM FINDINGS: Tubes, catheters and devices: Likely midline mediastinal drain tip position is not well delineated and obscured. Lungs: Interstitial crowding. Minor scarring or atelectasis right lower lung. Pleural space: Opacity retrocardiac left lower lung with small rounded retrocardiac lucency which could reflect partially loculated small left effusion unchanged compared to previous. Heart/Mediastinum: Heart size is stable. Bones/joints: Postoperative sternotomy. Other findings: Life support structures are stable. XR/XR chest 1V portable [id number] IMPRESSION: Similar retrocardiac left lower lung likely postoperative atelectasis and left effusion possibly partially loculated.
--- NOTE | 2019-10-18 06:00 | ECG_ITS ---
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 Measurements Intervals [place] Rate: 86 P: 38 IA: 140 QRS: 34 QRSD: 86 T: 113 QT: 426 QTc: 510 Interpretive Statements SINUS RHYTHM WITH SINUS ARRHYTHMIA ST DEVIATION AND MODERATE T-WAVE ABNORMALITY, CONSIDER LATERAL ISCHEMIA [-0.1+ mV T WAVE IN I/aVL/V5/V6] WARNING: DATA QUALITY MAY AFFECT INTERPRETATION Compared to ECG 10/17/2019 16:50:41 T-wave abnormality now present Possible ischemia now present Atrial-paced complex(es) or rhythm no longer present Ventricular-paced complex(es) or rhythm no longer present Electronically Signed On 10-19-2019 0:07:29 CDT by Zarina Pride M.D. [id number]
[2019-10-18 07:31] LABS: Glucose Point of Care 104 mg/dL (70-110)
[2019-10-18 07:31] LABS: Glucose Point of Care 153 mg/dL (70-110)
[2019-10-18 07:31] LABS: Glucose Point of Care 108 mg/dL (70-110)
[2019-10-18 07:31] LABS: Glucose Point of Care 85 mg/dL (70-110)
[2019-10-18 07:31] LABS: Glucose Point of Care 96 mg/dL (70-110)
[2019-10-18 07:31] LABS: Glucose Point of Care 91 mg/dL (70-110)
[2019-10-18] MEDS: fentaNYL 50 mcg/mL INJ 2mL IVP ×3 (07:42→09:51)
--- NOTE | 2019-10-18 07:45 | PC.NURSE ---
Addendum entered by Janina Jasso RN 10/18/19 10:34: Jaundice sclera noted. Addendum entered by Janina Jasso RN 10/18/19 10:27: Right great toe flexed upward. Original Note: Report received from ISADORA Penny. Pt remains sedated and on vent. We are to try and wean vent today. MASSIELANZ noted at 41cm; it was reported that readings vary due to placement. Central line ans Cordis in right neck patent and infusing Two peripheral IVs noted in bilat hands, both clean, dry and intact. Patent art line noted in right wrist, with good wave form. Pacemaker attached but not on. Zoll pads remain on. Chest tubes paten with appropriate bubbling, miniscule amount to no drainage noted at this time. Mccabe patent and draining. Fentanyl just admin. for pain. , B/P becoming more elevated.. Propofol, Insulin, IV fluids and abx, Nitroglycerin and Nitroprusside noted to be infusing.
[2019-10-18] MEDS: aspirin 81 mg Chew Tablet PO (08:42)
[2019-10-18] MEDS: oxyCODONE-APAP 5-325 mg Tablet PO ×2 (08:42→16:20)
[2019-10-18] MEDS: chlorhexidine gluconate 0.12% Btl 473 mL 15 ML MUCOUS MEM (08:43)
[2019-10-18] MEDS: pantoprazole 40 mg SDV IVP (08:43)
--- NOTE | 2019-10-18 08:55 | P.CONIM_ITS ---
Providers/Reason For Consult Consulting Physican/Specialty*: Roxanne Munguia DO, hospitalist Reason for Consult*: Medical management of psychotropic medications Requesting Physcian: Dr. Luciano, cardiothoracic surgery Attending Physician: Guerrero Luciano MD Primary Care Provider: Mandeep Madrigal MD History of Present Illness History of Present Illness Nancy Brasher is a 74 year old female with a past medical history of critical ao rtic stenosis, bipolar disorder, hypertension, hyperlipidemia, irritable bowel syndrome, restless leg syndrome and obstructive sleep apnea. Patient presented to the hospital yesterday for scheduled aortic valve replacement. Patient is currently postop day #1 and hospitalist service consulted for management of psychotropic medications. Patient has a past medical history of bipolar disorder, hypertension, hyperlipidemia and COPD. Patient has done well thus far in the postoperative setting, remains intubated and sedated on propofol. Review of Systems General: Reports: ROS unobtainable due to endotracheal tube Meds/Allergies Home Medications and Allergies Home Medications Medication Instructions Recorded Confirmed Last Taken Type venlafaxine 150 mg PO DAILY 05/16/19 10/17/19 10/16/19 History aripiprazole 10 mg tablet 10 mg PO DAILY 07/26/19 10/17/19 10/16/19 History cetirizine 10 mg tablet 5 mg PO DAILY 07/26/19 10/17/19 10/16/19 History dexlansoprazole 60 mg 60 mg PO DAILY 07/26/19 10/17/19 10/16/19 History capsule,biphase delayed release doxepin 3 mg tablet 3 mg PO DAILY tab 07/26/19 10/17/19 10/16/19 History estradiol 0.5 mg tablet 0.5 mg PO DAILY 07/26/19 10/17/19 10/16/19 History fluticasone propionate 50 1 spray INTRANASAL DAILY 07/26/19 10/17/19 10/16/19 History mcg/actuation nasal spray,suspension gabapentin 100 mg capsule 100 mg PO DAILY 07/26/19 10/17/19 10/16/19 History lisinopril 2.5 mg tablet 2.5 mg PO DAILY 07/26/19 10/17/19 10/16/19 History rivastigmine 4.6 mg TRANSDERMA DAILY 07/26/19 10/17/19 10/16/19 History simvastatin 40 mg tablet 40 mg PO DAILY 07/26/19 10/17/19 10/16/19 History fluticasone 100 mcg-salmeterol 50 1 inh INHALATION Q12H 30 Days #60 09/14/19 10/12/19 Unknown Rx mcg/dose blistr powdr for each inhalation Allergies Allergy/AdvReac Type Severity Reaction Status Date / Time metronidazole [From Flagyl] Allergy ALGY-Rash Verified 09/14/19 14:01 Current Medications Current Medications Generic Name Dose Route Start Last Admin Trade Name Freq PRN Reason Stop Dose Admin Aspirin 81 mg 10/17/19 20:00 10/18/19 08:42 Aspirin Chewable PO 81 mg DAILY MACHELLE Administration Aspirin 81 mg 10/18/19 09:00 10/18/19 08:39 Aspirin Chewable PO Not Given DAILY MACHELLE Chlorhexidine Gluconate 15 ml 10/17/19 18:00 10/18/19 08:43 Perigard MUCOUS MEM 1 dose BID MACHELLE Administration Fentanyl 50 mcg 10/17/19 15:27 10/18/19 08:52 Sublimaze IVP 50 mcg Q1H PRN Administration SEVERE PAIN Cefuroxime Sodium 1,500 mg/ 100 mls @ 200 mls/hr 10/18/19 06:30 10/18/19 08:00 Sodium Chloride IV 10/19/19 18:59 Infused Q12H MACHELLE Infusion Protocol Albumin Human 12.5 gm in 250 mls @ 600 mls/hr 10/17/19 15:27 10/18/19 00:24 Albumin IV Infused PRN PRN Infusion For CVP < 4 or SBP< 90 Nitroglycerin/Dextrose 50 mg in 250 mls @ 0 mls/hr 10/17/19 15:27 10/18/19 06:01 Nitroglycerin Drip IV 50 mcg/min .Q0M MACHELLE 15 mls/hr Titration Protocol Per Protocol Sodium Nitroprusside 50 mg/ 252 mls @ 0 mls/hr 10/17/19 15:27 10/18/19 08:38 Dextrose IV 0.5 mcg/kg/min .Q0M MACHELLE 11.7 mls/hr Titration Protocol Per Protocol Sodium Chloride 1,000 mls @ 75 mls/hr 10/17/19 15:27 10/18/19 06:01 Sodium Chloride 0.9% IV 75 mls/hr .[id number] MACHELLE Infusion Propofol 1,000 mg in 100 mls @ 0 mls/hr 10/17/19 15:27 10/18/19 06:01 Diprivan IV 30 mcg/kg/min .Q0M MACHELLE 13.9 mls/hr Titration Protocol Per Protocol Labetalol HCl 10 mg 10/17/19 15:27 10/17/19 17:10 Trandate IVP 10 mg Q5M PRN Administration Systolic BP >140 mmHG Oxycodone/Acetaminophen 1 - 2 tab 10/17/19 15:27 10/18/19 08:42 Percocet 5-325 Mg PO 2 tab Q6H PRN Administration MILD TO MODERATE PAIN Pantoprazole Sodium 40 mg 10/18/19 09:00 10/18/19 08:43 Protonix IVP 10/19/19 08:59 40 mg DAILY MACHELLE Administration PFSH Acute PFSH: Medical History Aortic stenosis, severe Arthropathy, unspecified Backache Bipolar affective disorder Chronic obstructive pulmonary disease, unspecified HTN (hypertension) Hypercholesterolemia Irritable bowel syndrome Labyrinthitis Peripheral vertigo RLS (restless legs syndrome) Sleep apnea Surgical History H/O eye surgery H/O foot surgery H/O oral surgery History of abdominal hysterectomy History of appendectomy Hx of cholecystectomy Status post aortic valve replacement with bioprosthetic valve Performed 10/17/[address] Luciano Social History Smoking and tobacco status: former smoker Quit status (tobacco): has quit using tobacco Year quit tobacco: 1979 - ciggs x 6 Years Alcohol intake: never Lives independently: Yes Household members: none Marital status: / Current occupational status: retired and disabled Pets and animals: Yes Pets & animals: dog(s) History of recent travel: No Current gender identity: Female Supplemental PFSH Information: Unable to obtain family history from patient as she is currently intubated and sedated Vitals/I&O/Wt Last Vital Signs Temp 99.7 F H 10/18/19 03:32 Pulse 89 10/18/19 08:30 Resp 12 10/18/19 08:42 BP 145/65 10/18/19 08:30 Pulse Ox 94 10/18/19 08:42 10/17/19 10/18/19 10/18/19 22:59 06:59 14:59 Intake Total 4250.464 / 5000.464 1865.495 / 6865.959 106.802 / 106.802 Output Total 3381 / 3381 602 / 3983 65 / 65 Balance 869.464 / 3255.907 8101.495 / 2882.959 41.802 / 41.802 Physical Exam Const: GENERAL APPEARANCE: patient mechanically ventilated NUTRITIONAL APPEARANCE: obese HENMT: OTHER: ET tube in place Chest: OTHER: Postoperative dressing in place over the anterior chest wall with wound VAC in place over the anterior chest incision Resp: OTHER: Intubated, sedated, no appreciable wheezing or rhonchi Cardio: OTHER: Regular rate and rhythm, systolic murmur present. Patient has wound VAC in place over the anterior chest wall status post aortic valve replacement GI: OTHER: Obese, soft, no appreciable tenderness, hypoactive bowel sounds : OTHER: Mccabe catheter in place Extremity: OTHER: Trace nonpitting edema in the lower extremities bilaterally Neuro: OTHER: Currently intubated and sedated Psych: OTHER: Sedated, unable to assess Skin: OTHER: Postoperative changes over the anterior chest wall, no appreciable rashes or lesions Urinary Catheter Management^: Mccabe: Cath Placed During This Visit: yes Reason for Continuing Indwelling Catheter: Accurate Measurement of Urinary Output in Critically Ill Patients Urinary Catheter Date of Insertion: 10/17/19 Urinary Catheter Time of Insertion: 08:12 A&P Assessment and plan (1) Status post aortic valve replacement with bioprosthetic valve: Postop day #1 aortic valve replacement with bioprosthetic valve performed by Dr. Luciano We will follow-up closely in the postoperative setting Patient remains intubated and sedated at this time, continue to wean sedation and SBT today with possible extubation today pending primary attending recommendations Patient does have underlying COPD, as well as moderate restrictive disease secondary to obesity plan for CPAP use in the post extubation time period Status: Acute (2) Chronic obstructive pulmonary disease, unspecified: Respiratory therapy to assess and treat, oxygen per protocol We will plan to wean sedation with potential extubation later today pending car diothoracic surgery evaluation and recommendation. Extubate to CPAP and continue this while patient is hospitalized in the perioperative period Status: Acute (3) Bipolar affective disorder: Patient is currently sedated on propofol, unable to perform psychiatric assessment of underlying condition at this time Patient is on Abilify 10 mg daily at home along with venlafaxine 150 mg daily and doxepin 3 mg daily Patient also has Versed 1 mg every 1 hours as needed for anxiety Status: Acute (4) HTN (hypertension): Blood pressure maintaining at this time, will continue to monitor blood pressure closely and titrate drips as indicated to maintain systolic blood pressure less than equal to 140 Patient is on lisinopril 2.5 mg daily at baseline Status: Acute Qualifiers: Hypertension type: essential hypertension Qualified Code(s): I10 - Essential (primary) hypertension Additional A&P Information Leukocytosis: Believed to be stress reaction due to surgery, no evidence of any infectious process identified at this time, chest x-ray shows small L effusion, repeat imaging with CXR per CTS. Continue with postoperative antibiotics Anemia: Hemoglobin improved from 9.5 up to 10.8 today, secondary to blood loss from surgery Thrombocytopenia: New onset thrombocytopenia in the postoperative setting, platelet count closely Elevated temperature: Temperature hovering around 99.7, Likely secondary to postoperative atelectasis. Continue with routine postoperative antibiotics at this time, cefuroxime GI prophylaxis: Protonix 40 mg daily DVT prophylaxis: SCDs, no pharmacologic prophylaxis at this time due to anemia and thrombocytopenia and immediate postoperative setting Diet: N.p.o. Sedation: Currently on propofol CODE STATUS: Full code Disposition planning: Follow-up with case management team and will continue further discussion. Physical therapy and Occupational Therapy ordered for evaluation and treatment. 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
--- NOTE | 2019-10-18 09:30 | PC.NURSE ---
Pt.s B/P rising. Increased Nitroprusside gtt. Pain med per OG and IV admin (see MAR). Propofol decreased. Attempting to wake pt.
[2019-10-18] MEDS: labetalol 5 mg/mL SDV 20mL 10 MG IVP (09:53)
--- NOTE | 2019-10-18 09:58 | PC.NURSE ---
0950: SBP 170. Labetalol 10 mg and fentanyl 1mg admin. propofol now at 10 mcg. Pt starting to wake. 0957: SBP 93, Propofol off. Nitroglycerin decreased to 70mcg/min and NItroprusside decreased to 0.4mcg/kg/min. Now: decreased Nitroprusside down again to 0.2mcg/kg/min. SBP artline 97, per b/P cuff 117/46. Will continue to monitor.
[2019-10-18 09:59] LABS: ABG PCO2 32.2 mmHg (35-45); ABG PCO2 34.7 mmHg (35-45); ABG PCO2 52.8 mmHg (35-45); ABG PH Result 7.25 (7.35-7.45); ABG PH Result 7.42 (7.35-7.45); ABG PH Result 7.48 (7.35-7.45); Arterial Blood Gas Hematocrit 22.3 % (37-47); Arterial Blood Gas Hematocrit 28.5 % (37-47); Arterial Blood Gas Hematocrit 33.6 % (37-47); Arterial Blood Gas Hematocrit 36.4 % (37-47); Base Excess ABG -0.5 mmol/L (-2.0-2.0); Base Excess ABG -1.4 mmol/L (-2.0-2.0); Base Excess ABG 0.2 mmol/L (-2.0-2.0); Blood Gas Allen Test Pos; Blood Gas Sample Type Arterial; Carboxyhemoglobin 0.7 %THgb (0.4-20.1); Carboxyhemoglobin 0.9 %THgb (0.4-20.1); Carboxyhemoglobin 1.2 %THgb (0.4-20.1); HCO3 ABG 22.6 mmol/L (22-26); HCO3 ABG 23.3 mmol/L (22-26); HCO3 ABG 23.7 mmol/L (22-26); HCO3 ABG 23.8 mmol/L (22-26); HGB O2 Sat 98.3 % (95-100); HGB O2 Sat 98.5 % (95-100); HGB O2 Sat 98.8 % (95-100); HGB O2 Sat 98.9 % (95-100); Ionized Calcium Level - ABG 0.8 mmol/L (1.1-1.4); Ionized Calcium Level - ABG 0.9 mmol/L (1.1-1.4); Ionized Calcium Level - ABG 1.1 mmol/L (1.1-1.4); Methemoglobin 0.9 % (0.4-1.5); Methemoglobin 1.1 % (0.4-1.5); Potassium Level - ABG 4.4 mmol/L (3.5-5.0); Potassium Level - ABG 4.8 mmol/L (3.5-5.0); Potassium Level - ABG 6.3 mmol/L (3.5-5.0); Total Hemoglobin 11.9 g/dL (12-16); Total Hemoglobin 7.3 g/dL (12-16); Total Hemoglobin 9.3 g/dL (12-16)
[2019-10-18 10:00] LABS: ABG PCO2 36.9 mmHg (35-45); ABG PCO2 38.4 mmHg (35-45); ABG PCO2 38.9 mmHg (35-45); ABG PCO2 43.8 mmHg (35-45); ABG PCO2 45.7 mmHg (35-45); ABG PH Result 7.31 (7.35-7.45); ABG PH Result 7.33 (7.35-7.45); ABG PH Result 7.41 (7.35-7.45); ABG PH Result 7.42 (7.35-7.45); Arterial Blood Gas Hematocrit 25.3 % (37-47); Arterial Blood Gas Hematocrit 27.3 % (37-47); Arterial Blood Gas Hematocrit 29.3 % (37-47); Arterial Blood Gas Hematocrit 30.9 % (37-47); Arterial Blood Gas Hematocrit 37.7 % (37-47); Base Excess ABG -0.9 mmol/L (-2.0-2.0); Base Excess ABG -2.7 mmol/L (-2.0-2.0); Base Excess ABG 0.3 mmol/L (-2.0-2.0); Base Excess ABG 6.4 mmol/L (-2.0-2.0); Blood Gas Allen Test Pos; Blood Gas Sample Type Arterial; Carboxyhemoglobin 1.2 %THgb (0.4-20.1); Carboxyhemoglobin 1.4 %THgb (0.4-20.1); HCO3 ABG 23.2 mmol/L (22-26); HCO3 ABG 23.4 mmol/L (22-26); HCO3 ABG 24.8 mmol/L (22-26); HCO3 ABG 30.1 mmol/L (22-26); HGB O2 Sat 97.6 % (95-100); HGB O2 Sat 97.7 % (95-100); HGB O2 Sat 98.2 % (95-100); HGB O2 Sat 98.5 % (95-100); HGB O2 Sat 98.6 % (95-100); Ionized Calcium Level - ABG 1.1 mmol/L (1.1-1.4); Ionized Calcium Level - ABG 1.2 mmol/L (1.1-1.4); Ionized Calcium Level - ABG 1.4 mmol/L (1.1-1.4); Methemoglobin 0.8 % (0.4-1.5); Methemoglobin 0.9 % (0.4-1.5); Methemoglobin 1.1 % (0.4-1.5); Methemoglobin 1.4 % (0.4-1.5); Methemoglobin 1.5 % (0.4-1.5); Potassium Level - ABG 4.6 mmol/L (3.5-5.0); Potassium Level - ABG 5.1 mmol/L (3.5-5.0); Potassium Level - ABG 5.4 mmol/L (3.5-5.0); Total Hemoglobin 10.1 g/dL (12-16); Total Hemoglobin 12.3 g/dL (12-16); Total Hemoglobin 8.3 g/dL (12-16); Total Hemoglobin 8.9 g/dL (12-16); Total Hemoglobin 9.6 g/dL (12-16)
--- NOTE | 2019-10-18 10:30 | PC.NURSE ---
Propofol off. Pt moving around. Noted left gaze preference, PEARLA.. Pt lifting her left arm up frequently. Left leg bending at kn ee and moving frequently. Right leg moved once or twice but mostly right foot flexing upward. Right arm not moving, but does move at painful stimuli. All four extremeties move at painful stimuli. When calling pt's name from the right pt attempts to turn her hed in that direction but does not move her eyes right.
--- NOTE | 2019-10-18 10:55 | PC.NURSE ---
Dr Luciano and Dr Modi both notified of neuro event9 See previous note). STAT CT ordered.
--- NOTE | 2019-10-18 10:57 | CT_ITS ---
WS: [id number] CT HEAD NONCONTRAST HISTORY: possible stroke TECHNIQUE: Contiguous axial imaging performed through the brain in 2.5 mm imaging. Bone and soft tiss ue windows. Sagittal and coronal reformats reviewed. All CT scans at [facility] use at ast one of these dose optimization techniques: automated exposure control; mA and/or kV adjustment pe r patient size (includes targeted exams where dose is matched to clinical indication); or iterative r econstruction. DLP: 1087.35 mGy.cm COMPARISON: 09/05/2008 No acute intracranial hemorrhage, midline shift or mass effect. Mild atrophy and chronic microvascular ischemic disease. No acute infarct is identified. Ventricles: Normal size with no hydrocephalus. Patient is intubated. No inferior displacement of cerebellar tonsils. Paranasal sinuses: Air-fluid level in the sphenoid sinus with increased fluid and mucoperiosteal thic kening in the ethmoid air cells. Mastoid air cells: Well pneumatized. Calvarium and scalp: Skull is intact with no soft tissue edema or swelling. CT/CT head wo con* [id number] IMPRESSION: 1. No acute intracranial hemorrhage or edema. 2. Mild atrophy and mild chronic microvascular ischemic disease.
--- NOTE | 2019-10-18 11:04 | CT_ITS ---
WS: [id number] CT ANGIOGRAM CEREBRAL AND CAROTID ARTERIES HISTORY: CVA TECHNIQUE: CT angiogram is performed of the carotid and cerebral arteries. During arterial injection imaging is obtained from the skull vertex to the aortic arch in 1.25 mm imaging. Coronal and sagittal reformats are submitted. Additional multi planar reformats of the carotid and cerebral arteries are submitted, MIP imaging also reviewed. NASCET criteria utilized. All CT scans at [facility] use at least one of these dose optimization techniques: automated exposure control; mA and/or kV ad justment per patient size (includes targeted exams where dose is matched to clinical indication); or iterative reconstruction. CONTRAST: Visipaque 320; 95 mL IV. DLP: 1270.42 mGy.cm COMPARISON: None available. Carotid Angiogram: Right carotid: Common carotid artery: Arises normally from the innominate artery. No significant plaque or stenosis. Internal carotid artery: No plaque or stenosis. External carotid artery: Patent. Left carotid: Common carotid artery: Arises normally from the aorta. No significant plaque or stenosis. Internal carotid artery: No plaque or stenosis. External carotid artery: Patent. Right vertebral artery: Unremarkable. Left vertebral artery: Unremarkable. Arises normally from the subclavian artery. Subclavian arteries: No stenosis or significant abnormality. Upper thorax: Consolidation in the posterior RIGHT upper lobe. Patient is intubated. Thyroid gland: Normal. There is air dissecting the soft tissues of the neck bilaterally. May be from the recent dialysis cat heter placement or thoracic surgery. Osseous structures: Increase in cervical lordosis. CEREBRAL ANGIOGRAM: Intracranial vertebral arteries: Normal with no significant atherosclerosis. Basilar artery: No significant stenosis or occlusion. No aneurysm. Intracranial Internal carotid arteries: Moderate atherosclerotic plaque through the cavernous sinuses . Mild atherosclerosis within the middle cerebral arteries but no occlusions or thrombus identified. Middle cerebral arteries: Mild atherosclerosis in the middle cerebral arteries. No thrombus or high-g rade stenosis. Anterior cerebral arteries and ACOM: Normal. Posterior cerebral arteries and PCOM's: Normal. Dural venous sinuses are normally enhancing. Mastoid air cells: Normal. Paranasal sinuses: Air-fluid level in the sphenoid sinuses and mucoperiosteal thickening in the ethmo id air cells. Calvarium: Normal. CT/CT angio headneck* [id number] IMPRESSION: 1. No significant carotid artery stenosis. 2. Mild atherosclerosis middle cerebral arteries is moderate atherosclerosis i ntracranial carotid arteries. 3. Patient is intubated. 4. Subcutaneous gas air in the soft tissues of the neck is probably postsurgic al. 5. RIGHT upper lobe consolidation is probably pneumonia.
--- NOTE | 2019-10-18 11:40 | PC.NURSE ---
Pt back from CT. Propofol restarted during CT for her comfort. It has now be stopped again.
--- NOTE | 2019-10-18 12:30 | PM.CONSULT ---
Providers/Reason For Consult Consulting Physican/Specialty*: Dr. Markie Munguia/hospitalist Reason for Consult*: Acute stroke Attending Physician: Guerrero Luciano MD Primary Care Provider: Mandeep Madrigal MD History of Present Illness History of Present Illness Nancy Brasher is a 74 year old woman who had critical aortic valvular stenosis, symptomatic, discovered after she had an episode of syncope in May 2018. She is otherwise in fair health except for bipolar disorder, hypertension, history of mild dementia. Her surgery was uneventful yesterday. Propofol was weaned gradually and this morning it was noted that she had left gaze preference and dense anesthesia on the right with no response to pain on the right along with right sided paralysis. This was observed by the nurse and by Dr. Munguia, who called me. The patient would not be a candidate for TPA peripherally but could have been a candidate for embolectomy and for that reason CT of the head and CTA were performed stat. I reviewed those as soon as they were accumulated and found no signs of thrombus or embolus. Posterior and anterior circulation appears unremarkable. I examined the patient in ICU on completion of those studies and found that she is not responding to commands, she has a relative right visual field cut and is still exhibiting left gaze preference but her right hemiparesis is improving. Review of Systems General: Reports: ROS unobtainable due to endotracheal tube and ROS unobtainable due to mental status Narrative: She has not had any postoperative fever. Her blood pressure has been in the 130s, 140s. We here that she had some memory problems prior to surgery and she is on Rivastigmine. She worked with speech therapy last year and no dementia was noted. Meds/Allergies Home Medications and Allergies Home Medications Medication Instructions Recorded Confirmed Last Taken Type venlafaxine 150 mg PO DAILY 05/16/19 10/17/19 10/16/19 History aripiprazole 10 mg tablet 10 mg PO DAILY 07/26/19 10/17/19 10/16/19 History cetirizine 10 mg tablet 5 mg PO DAILY 07/26/19 10/17/19 10/16/19 History dexlansoprazole 60 mg 60 mg PO DAILY 07/26/19 10/17/19 10/16/19 History capsule,biphase delayed release doxepin 3 mg tablet 3 mg PO DAILY tab 07/26/19 10/17/19 10/16/19 History estradiol 0.5 mg tablet 0.5 mg PO DAILY 07/26/19 10/17/19 10/16/19 History fluticasone propionate 50 1 spray INTRANASAL DAILY 07/26/19 10/17/19 10/16/19 History mcg/actuation nasal spray,suspension gabapentin 100 mg capsule 100 mg PO DAILY 07/26/19 10/17/19 10/16/19 History lisinopril 2.5 mg tablet 2.5 mg PO DAILY 07/26/19 10/17/19 10/16/19 History rivastigmine 4.6 mg TRANSDERMA DAILY 07/26/19 10/17/19 10/16/19 History simvastatin 40 mg tablet 40 mg PO DAILY 07/26/19 10/17/19 10/16/19 History fluticasone 100 mcg-salmeterol 50 1 inh INHALATION Q12H 30 Days #60 09/14/19 10/12/19 Unknown Rx mcg/dose blistr powdr for each inhalation Allergies Allergy/AdvReac Type Severity Reaction Status Date / Time metronidazole [From Flagyl] Allergy ALGY-Rash Verified 09/14/19 14:01 Current Medications Current Medications Generic Name Dose Route Start Last Admin Trade Name Freq PRN Reason Stop Dose Admin Aspirin 81 mg 10/17/19 20:00 10/18/19 08:42 Aspirin Chewable PO 81 mg DAILY MACHELLE Administration Aspirin 81 mg 10/18/19 09:00 10/18/19 08:39 Aspirin Chewable PO Not Given DAILY MACHELLE Chlorhexidine Gluconate 15 ml 10/17/19 18:00 10/18/19 08:43 Perigard MUCOUS MEM 1 dose BID MACHELLE Administration Fentanyl 50 mcg 10/17/19 15:27 10/18/19 09:51 Sublimaze IVP 50 mcg Q1H PRN Administration SEVERE PAIN Cefuroxime Sodium 1,500 mg/ 100 mls @ 200 mls/hr 10/18/19 06:30 10/18/19 08:00 Sodium Chloride IV 10/19/19 18:59 Infused Q12H MACHELLE Infusion Protocol Albumin Human 12.5 gm in 250 mls @ 600 mls/hr 10/17/19 15:27 10/18/19 00:24 Albumin IV Infused PRN PRN Infusion For CVP < 4 or SBP< 90 Nitroglycerin/Dextrose 50 mg in 250 mls @ 0 mls/hr 10/17/19 15:27 10/18/19 12:04 Nitroglycerin Drip IV 40 mcg/min .Q0M MACHELLE 12 mls/hr Titration Protocol Per Protocol Sodium Nitroprusside 50 mg/ 252 mls @ 0 mls/hr 10/17/19 15:27 10/18/19 12:04 Dextrose IV 0.7 mcg/kg/min .Q0M MACHELLE 16.3 mls/hr Titration Protocol Per Protocol Sodium Chloride 1,000 mls @ 75 mls/hr 10/17/19 15:27 10/18/19 06:01 Sodium Chloride 0.9% IV 75 mls/hr .[id number] MACHELLE Infusion Propofol 1,000 mg in 100 mls @ 0 mls/hr 10/17/19 15:27 10/18/19 09:56 Diprivan IV Infused .Q0M MACHELLE Titration Protocol Per Protocol Oxycodone/Acetaminophen 1 - 2 tab 10/17/19 15:27 10/18/19 08:42 Percocet 5-325 Mg PO 2 tab Q6H PRN Administration MILD TO MODERATE PAIN Pantoprazole Sodium 40 mg 10/18/19 09:00 10/18/19 08:43 Protonix IVP 10/19/19 08:59 40 mg DAILY MACHELLE Administration PFSH Acute PFSH: Medical History Aortic stenosis, severe Arthropathy, unspecified Backache Bipolar affective disorder Chronic obstructive pulmonary disease, unspecified HTN (hypertension) Hypercholesterolemia Irritable bowel syndrome Labyrinthitis Peripheral vertigo RLS (restless legs syndrome) Sleep apnea Surgical History H/O eye surgery H/O foot surgery H/O oral surgery History of abdominal hysterectomy History of appendectomy Hx of cholecystectomy Status post aortic valve replacement with bioprosthetic valve Performed 10/17/[address] Luciano Social History Smoking and tobacco status: former smoker Quit status (tobacco): has quit using tobacco Year quit tobacco: 1979 - ciggs x 6 Years Alcohol intake: never Lives independently: Yes Household members: none Marital status: / Current occupational status: retired and disabled Pets and animals: Yes Pets & animals: dog(s) History of recent travel: No Current gender identity: Female Vitals/I&O/Wt Last Vital Signs Temp 99.7 F H 10/18/19 03:32 Pulse 73 10/18/19 11:50 Resp 12 10/18/19 11:50 BP 112/37 10/18/19 11:50 Pulse Ox 98 10/18/19 11:50 10/17/19 10/18/19 10/18/19 22:59 06:59 14:59 Intake Total 4250.464 / 5000.464 1865.495 / 6865.959 340.381 / 340.381 Output Total 3381 / 3381 602 / 3983 230 / 230 Balance 869.464 / 3990.291 1033.495 / 2882.959 110.381 / 110.381 Physical Exam Narrative: EXAM NARRATIVE: HEENT: She is intubated. Sclera nonicteric. Normocephalic. Neck: Trachea is midline. Carotid upstroke strong bilaterally. Chest: Clear to auscultation Cardiovascular: Regular rate and rhythm. Normal sinus based on monitor Neurologic: Mental status exam: She responds briskly to pain by showing grimace. She does not regard the examiner although I am standing on her right side. She did not follow commands for me or for the nurse, who was standing to her left. Cranial nerves: She responds to visual threat better on the left side and consistently, while she responds intermittently on the right. She has a strong left gaze preference and does not cross the midline on doll's eyes. She has flattening of the right nasolabial fold and exhibits more grimace on the left side than the right. She responds to pain on both sides of the face. Sensorimotor: She responds briskly to nailbed pressure on the right. She is spontaneously moving all 4 extremities, stronger on the left with greater range of motion on the left. Her seal skinner strength was excellent on the left and she nearly pulled out the endotracheal tube before we tied her back. On the right side her movements appear less purposeful and more random. Toes are upgoing on the right, downgoing on the left. Urinary Catheter Management^: Mccabe: Cath Placed During This Visit: yes Reason for Continuing Indwelling Catheter: Accurate Measurement of Urinary Output in Critically Ill Patients Urinary Catheter Date of Insertion: 10/17/19 Urinary Catheter Time of Insertion: 08:12 Data Other Data: Other data: CT scan of the head shows chronic white matter changes and nothing acute. CT angiogram showed is no sign of obstructive embolus or thrombus. Specifically, middle cerebral arteries are intact. A&P Assessment and plan (1) Left acute arterial ischemic stroke, MCA (middle cerebral artery): 74-year-old woman with a history of hypertension, preoperatively documented not to have carotid stenosis based on an ultrasound done last year, who had uneventful aortic valve replacement for critical aortic stenosis. Clinically she has sustained probably an embolic left middle cerebral artery stroke of aortic arch origin most likely. She is already improving rapidly. Her CT scan is negative for a large acute lesion and her CT angiogram also feels to show acute left middle cerebral artery occlusion so her prognosis should be good for recovery. She is not a candidate for embolectomy or aggressive treatment. Best course at this time is conservative management of her blood pressure within the limits of what is allowable now that her aortic valve is replaced. She is receiving IV fluids and appropriate gentle hydration. Current management is ideal and I have no other suggestions. Continue to monitor. Status: Acute Consult Attestations Medical Necessity Statement: Postop from aortic valve replacement now with acute stroke Time Spent in Patient Care: Greater than 35 minutes Critical Care Time: Critical Care Time (min): 20 Other Attestations: Other Attestations: 20 minutes of critical care reviewing CT angiogram and coming directly to the bedside to look for thrombotic or embolic lesion that might respond to embolectomy. Coding Level of Care Code Acute Director Of Operations Support for 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 Diagnoses Left acute arterial ischemic stroke, MCA (middle cerebral artery) I63.512
--- NOTE | 2019-10-18 13:04 | PM.OP ---
Operative Report Date of procedure: October 18, 2019 Pre-op Diagnosis: Severe aortic valve stenosis Post-op diagnosis: same Post-op Findings: Heavily calcified trileaflet negative aortic valve with limited leaflet mobility Procedure Done: Aortic valve replacement with a 19 mm [place] pericardial tissue valve Surgeon: Guerrero Luciano Anesthesia: General Complications: None Condition: critical Disposition: ICU Brief History: Ms. Brasher is a 74-year-old female with severe aortic valve stenosis with a valve area of 0.8 cm?. She has developed progressive symptomatology over the past 18 months to 2 years with only limited exertion resulting in substantial dyspnea. She is been evaluated previous by Dr. Deluca. Prior transthoracic echocardiogram reveals a valve area of 0.8 cm?. Subsequent left heart catheterization in May reveals normal coronary anatomy without obstruction. She was originally scheduled for surgery to consider valve replacement in late May however this was delayed due to the COVID-19 pandemic. She was subsequently scheduled for surgery about 1 month ago but has been placed on steroids by her primary care provider for tendinitis. She subsequently presents for planned aortic valve replacement. Details of risk of the procedure were carefully and frankly discussed. She is undergone preoperative evaluation as well as education with both written and video materials. She has no immediate family members present, with her sister, Pearl, residing in [place] who we have contacted by phone. Procedure: PROCEDURE: Appropriate preoperative evaluation was performed by our Anesthesia colleagues with adequate IV's established. Ms. Brasher was brought into the Operating Room Suite and placed on the Operating Room table in the supine position. General anesthesia was carefully induced as appropriate invasive monitoring lines were placed. After careful positioning, the patient was sterilely prepped and draped. A median sternotomy incision was made in standard fashion and continued down to the sternal table. The sternum was divided with a reciprocating saw and hemostasis was controlled with cautery and bone wax. Antibiotic soaked moist laparotomy pads were placed in the wound, followed by retractor. The sternum was and a pericardial cradle was opened and suspended. The heart and great vessels were carefully inspected and cannulation sites determined. 2-0 pledgeted Ethibond sutures were placed at cannulation sites, including the aorta, right atrial appendage, aortic root and right superior pulmonary vein. Following this, the patient was fully heparinized. Next, the heart was cannulated with a 22-Azeri aortic cannula, two-stage venous cannula and an aortic root vent. A left ventricular vent was then placed through the right superior pulmonary vein. The patient was placed on cardiac pulmonary bypass and cooled systemically to 34 degrees. Aortic cross-clamp was then carefully placed and cold blood cardioplegia was administered through the aortic root as topical myocardial cooling was provided with cold saline with an insulation pad in place. Left ventricular decompression was maintained by the LV sump. After completion of the initial cardioplegic dose, a slightly oblique transverse aortotomy was created approximately 15 mm above the ostium to the right coronary artery. This aortotomy was enlarged with Metzenbaum scissors to provide adequate exposure to the diseased aortic valve. Coronary cannulae were utilized for hand injection of cardioplegia into the left main and right coronary ostia at 20 minute intervals while the aorta was opened. Next, the [place] valve was inspected and found to be trileaflet and heavily calcified and then excised utilizing a combination of Metzenbaum scissors, pituitary rongeurs for decalcification and scalpel blade as required. Great care was taken to remove all loosened debris. After adequate debridement and decalcification, with our LV sump turned off, the left ventricular cavity was irrigated with a large volume of iced saline in order to remove all debris. Following this, after inspection that the anterior leaflet of the mitral valve was intact, the aortic annulus was then carefully sized. Next, 2-0 pledgeted Ethibond sutures were placed circumferentially at the level of the annulus. After again sizing the valve, the appropriate sized 19 mm [place] pericardial tissue valve was brought into the field. Annular sutures were placed through the valve sewing ring and the valve was lowered into position and secured. It was confirmed that the coronary ostia were not obstructed by the sewing ring. While the re-warming phase of bypass continued, the transverse aortotomy was closed with two layers of over-felt strips, utilizing 4-0 Prolene suture. The patient was then placed in deep Trendelenburg position as the cross-clamp was released and venting was performed to the aortic root and left ventricular sump. Adequate de-airing was performed and confirmed by transesophageal echocardiography. Pacing wires were placed, brought through the skin and secured. The heart return to activity spontaneously and did not require cardioversion. She was then returned to the supine position as we continued active venting of the aortic root and LV sump. After completion of de-airing, the LV sump was removed and the site was secured. After completion of systemic re-warming and cardiac stability, the patient was weaned from bypass without difficulty on 3 mcg per kilogram per minute of Dobutamine. Following this, venous cannula was removed and Protamine test dose was given. Next, full Protamine dose was given. The heart was then decannulated and cannulation sites were oversewn. The aortic valve was again inspected by echocardiography and confirmed to be functioning well. It was noted that the RV was also somewhat thickened, suggestive of perhaps primary pulmonary hypertension related to her history of COPD. Appropriate volume loading was confirmed. Mediastinal drains were then placed and pleural drains if required. These were connected to Pleur-evac suction. Following this, retractor was removed and sponge and needle count was correct. After confirmation of hemostasis, the wound was irrigated. Platelet rich plasma was applied prior to reapproximating the sternal tables. The sternum was then reapproximated very carefully with interrupted #7 stainless steel wire. The fascia was closed with running #1 Vicryl suture, followed by closure of the subcutaneous layer with 2-0 and 3-0 Vicryl suture. Platelet rich plasma was also used in the subcutaneous layers. The skin was closed in a subcuticular manner. Sterile dressings were applied, followed by a vacuum-assisted dressing. After confirmation of hemodynamic stability and low chest tube output, Ms. Brasher was then transferred to the Intensive Care Unit. We did supervisor counseling and guidance with her sister, Pearl, periodically throughout the procedure and at the completion of the procedure and did discuss the operative findings with Dr. Deluca.
--- NOTE | 2019-10-18 13:11 | P.PN_ITS ---
Subjective Subjective: Interval history: Postop day #1 status post AVR. Results of neurologic this a.m. this morning have been relayed to me. I greatly appreciate the expertise of our hospitalist colleagues and Dr. Jin. It appears that Ms. Brasher is now moving all of her extremities spontaneously. Her nurse, Janina, reports that this is an improvement as compared to mid morning. Results of initial CT scan are noted. I have attempted to contact her sister, Pearl, by phone. This was unsuccessful. We will try again later. Unless advised otherwise, I would recommend maintaining modest hypertension. I would also recommend proceeding with weaning and extubation if the airway is fel t to be safe. Physical therapy is now working with her. We will continue with all supportive care. We will also add Lovenox therapeutic for DVT prophylaxis. She currently is on aspirin. Vitals/I&O/Wt Last Vital Signs Temp 99.7 F H 10/18/19 03:32 Pulse 82 10/18/19 12:45 Resp 32 H 10/18/19 12:45 BP 162/129 10/18/19 12:45 Pulse Ox 90 10/18/19 12:45 10/17/19 10/18/19 10/18/19 22:59 06:59 14:59 Intake Total 4250.464 / 5000.464 1865.495 / 6865.959 349.181 / 349.181 Output Total 3381 / 3381 602 / 3983 230 / 230 Balance 869.464 / 3194.395 2460.495 / 2882.959 119.181 / 119.181 Physical Exam Urinary Catheter Management^: Mccabe: Cath Placed During This Visit: yes Reason for Continuing Indwelling Catheter: Accurate Measurement of Urinary Output in Critically Ill Patients Urinary Catheter Date of Insertion: 10/17/19 Urinary Catheter Time of Insertion: 08:12 Data : 10/18/19 03:59 10/18/19 03:59 A&P Assessment and plan (1) Status post aortic valve replacement with bioprosthetic valve: Concerns for neurologic events noted upon emerging from sedation this morning. Evaluation is supportive care continues. I again greatly appreciate all of my colleagues in care of Ms. Brasher. Status: Acute Attestations Medical Necessity Statement*: Status post AVR with possible neurologic event Time Spent in Patient Care: 16 - 35 minutes Coding Level of Care Code Acute Sanforizing Machine Operator for Chg Fwd Diagnoses Status post aortic valve replacement with bioprosthetic valve Z95.3
[2019-10-18 13:15] LABS: Blood Gas Sample Site Not specified
--- NOTE | 2019-10-18 14:23 | PC.NURSE ---
OLdest sister, Odilon Ghosh, , called to check on pt. Pass word set up (see next note). She stated Pearl, the other sisiter, is busy today with niece and she will contact us later. She was informed that the physicians here where trying to contact Pearl about pt.
--- NOTE | 2019-10-18 14:26 | PC.NURSE ---
PASSWORD:[id number].
--- NOTE | 2019-10-18 15:09 | PC.NURSE ---
Addendum entered by Janina Jasso RN 10/19/19 17:26: Sorba shield contour view dressing applied. Original Note: Cordis and Swanz-Joanne removed as ordered. Cath tips, both , are intact. NO redness or swelling noted at site. Pressure held until homeostasis obtained. Fresh dressing applied after cleansed around area with chlorahexadine. Hand hygiene and sterile technique observed throughput.
--- NOTE | 2019-10-18 15:34 | PC.NURSE ---
Sister, Eric, returned call. She was updated on pt's condition and neuro event.
[2019-10-18] MEDS: enoxaparin 40 mg/0.4 mL Syringe SUBCUT (15:35)
--- NOTE | 2019-10-18 15:36 | PC.NURSE ---
First dose Lovenox admin at this time, due to other care of patient.
--- NOTE | 2019-10-18 15:59 | PC.OT ---
OT note: From chart review pt still working towards weaning from vent. Will hold at this time.
--- NOTE | 2019-10-18 16:07 | PC.NURSE ---
Pt sedated unable to get a complete neuro assessment.
[2019-10-18] MEDS: nitroglycerin drip 50 MG/250 ML PREMIX 30 MG IV ×2 (16:26→22:53)
--- NOTE | 2019-10-18 17:01 | PM.CONSULT ---
Providers/Reason For Consult Consulting Physican/Specialty*: Cardiology Reason for Consult*: Status post aortic valve replacement Attending Physician: Guerrero Luciano MD Primary Care Provider: Mandeep Madrigal MD History of Present Illness History of Present Illness Nancy Brasher is a 74 year old female past medical history significant for severe aortic valve stenosis hypertension obesity who underwent aortic valve replacement yesterday. This morning she was noted to have left side gaze with the right side weakness, CT head was performed which ruled out any bleed. Probable CVA was diagnosed. Neurology has been involved. Currently weakness of the right arm has improved. We have not tried to extubate the patient as chances of aspiration have been considered. She is also noted to have thrombocytopenia for which anticoagulation has been held. She remained intubated otherwise stable vital carr[place]. Review of Systems General: Reports: ROS unobtainable due to endotracheal tube and ROS unobtainable due to mental status Narrative: She has not had any postoperative fever. Her blood pressure has been in the 130s, 140s. We here that she had some memory problems prior to surgery and she is on Rivastigmine. She worked with speech therapy last year and no dementia was noted. Meds/Allergies Home Medications and Allergies Home Medications Medication Instructions Recorded Confirmed Last Taken Type venlafaxine 150 mg PO DAILY 05/16/19 10/17/19 10/16/19 History aripiprazole 10 mg tablet 10 mg PO DAILY 07/26/19 10/17/19 10/16/19 History cetirizine 10 mg tablet 5 mg PO DAILY 07/26/19 10/17/19 10/16/19 History dexlansoprazole 60 mg 60 mg PO DAILY 07/26/19 10/17/19 10/16/19 History capsule,biphase delayed release doxepin 3 mg tablet 3 mg PO DAILY tab 07/26/19 10/17/19 10/16/19 History estradiol 0.5 mg tablet 0.5 mg PO DAILY 07/26/19 10/17/19 10/16/19 History fluticasone propionate 50 1 spray INTRANASAL DAILY 07/26/19 10/17/19 10/16/19 History mcg/actuation nasal spray,suspension gabapentin 100 mg capsule 100 mg PO DAILY 07/26/19 10/17/19 10/16/19 History lisinopril 2.5 mg tablet 2.5 mg PO DAILY 07/26/19 10/17/19 10/16/19 History rivastigmine 4.6 mg TRANSDERMA DAILY 07/26/19 10/17/19 10/16/19 History simvastatin 40 mg tablet 40 mg PO DAILY 07/26/19 10/17/19 10/16/19 History fluticasone 100 mcg-salmeterol 50 1 inh INHALATION Q12H 30 Days #60 09/14/19 10/12/19 Unknown Rx mcg/dose blistr powdr for each inhalation Allergies Allergy/AdvReac Type Severity Reaction Status Date / Time metronidazole [From Flagyl] Allergy ALGY-Rash Verified 09/14/19 14:01 Current Medications Current Medications Generic Name Dose Route Start Last Admin Trade Name Freq PRN Reason Stop Dose Admin Aspirin 81 mg 10/17/19 20:00 10/18/19 08:42 Aspirin Chewable PO 81 mg DAILY MACHELLE Administration Aspirin 81 mg 10/18/19 09:00 10/18/19 08:39 Aspirin Chewable PO Not Given DAILY MACHELLE Chlorhexidine Gluconate 15 ml 10/17/19 18:00 10/18/19 08:43 Perigard MUCOUS MEM 1 dose BID MACHELLE Administration Enoxaparin Sodium 40 mg 10/18/19 13:45 10/18/19 15:35 Lovenox SUBCUT 40 mg Q24H MACHELLE Administration Fentanyl 50 mcg 10/17/19 15:27 10/18/19 09:51 Sublimaze IVP 50 mcg Q1H PRN Administration SEVERE PAIN Cefuroxime Sodium 1,500 mg/ 100 mls @ 200 mls/hr 10/18/19 06:30 10/18/19 08:00 Sodium Chloride IV 10/19/19 18:59 Infused Q12H MACHELLE Infusion Protocol Albumin Human 12.5 gm in 250 mls @ 600 mls/hr 10/17/19 15:27 10/18/19 00:24 Albumin IV Infused PRN PRN Infusion For CVP < 4 or SBP< 90 Nitroglycerin/Dextrose 50 mg in 250 mls @ 0 mls/hr 10/17/19 15:27 10/18/19 16:26 Nitroglycerin Drip IV 100 mcg/min .Q0M MACHELLE 30 mls/hr Administration Protocol Per Protocol Sodium Nitroprusside 50 mg/ 252 mls @ 0 mls/hr 10/17/19 15:27 10/18/19 16:52 Dextrose IV 1.6 mcg/kg/min .Q0M MACHELLE 37.3 mls/hr Administration Protocol Per Protocol Sodium Chloride 1,000 mls @ 75 mls/hr 10/17/19 15:27 10/18/19 06:01 Sodium Chloride 0.9% IV 75 mls/hr .[id number] MACHELLE Infusion Propofol 1,000 mg in 100 mls @ 0 mls/hr 10/17/19 15:27 10/18/19 16:26 Diprivan IV 30 mcg/kg/min .Q0M MACHELLE 13.9 mls/hr Administration Protocol Per Protocol Oxycodone/Acetaminophen 1 - 2 tab 10/17/19 15:27 10/18/19 16:20 Percocet 5-325 Mg PO 2 tab Q6H PRN Administration MILD TO MODERATE PAIN Pantoprazole Sodium 40 mg 10/18/19 09:00 10/18/19 08:43 Protonix IVP 10/19/19 08:59 40 mg DAILY MACHELLE Administration PFSH Acute PFSH: Medical History (Updated 10/18/19 @ 17:44 by Brent Deluca MD) Aortic stenosis, severe Arthropathy, unspecified Backache Bipolar affective disorder Chronic obstructive pulmonary disease, unspecified HTN (hypertension) Hypercholesterolemia Irritable bowel syndrome Labyrinthitis Peripheral vertigo RLS (restless legs syndrome) Sleep apnea Surgical History (Updated 10/18/19 @ 17:44 by Brent Deluca MD) H/O eye surgery H/O foot surgery H/O oral surgery History of abdominal hysterectomy History of appendectomy Hx of cholecystectomy Status post aortic valve replacement with bioprosthetic valve Performed 10/17/[address] Luciano Social History Smoking and tobacco status: former smoker Quit status (tobacco): has quit using tobacco Year quit tobacco: 1979 - ciggs x 6 Years Alcohol intake: never Lives independently: Yes Household members: none Marital status: / Current occupational status: retired and disabled Pets and animals: Yes Pets & animals: dog(s) History of recent travel: No Current gender identity: Female Supplemental PFSH Information: Unable to obtain family history from patient as she is currently intubated and sedated Dietary Habits: Current diet type/program: regular Caffeine: No Vitals/I&O/Wt Last Vital Signs Temp 99.7 F H 10/18/19 03:32 Pulse 90 10/18/19 15:02 Resp 12 10/18/19 16:20 BP 152/67 10/18/19 15:02 Pulse Ox 96 10/18/19 16:20 10/18/19 10/18/19 10/18/19 06:59 14:59 22:59 Intake Total 1865.495 / 6865.959 388.630 / 388.630 113.626 / 502.256 Output Total 602 / 3983 327 / 327 52 / 379 Balance 1263.495 / 2882.959 61.630 / 61.630 61.626 / 123.256 Physical Exam Narrative: EXAM NARRATIVE: GENERAL: Patient is intubated and sedated on vent NECK: No jugular vein distension. HEENT: No cyanosis. No icterus. No pallor. HEART: Regular S1 and S2. No murmur, rub or gallop. LUNGS: Clear to auscultate bilaterally. ABDOMEN: Soft, nontender and nondistended. Positive bowel sounds. No guarding, rebound or tenderness. CENTRAL NERVOUS SYSTEM: Cannot be assessed due to severe EXTREMITIES: Lower extremities withot edema bilaterally. Urinary Catheter Management^: Mccabe: Cath Placed During This Visit: yes Reason for Continuing Indwelling Catheter: Accurate Measurement of Urinary Output in Critically Ill Patients Urinary Catheter Date of Insertion: 10/17/19 Urinary Catheter Time of Insertion: 08:12 A&P Assessment and plan (1) Status post aortic valve replacement with bioprosthetic valve: Status post bioprosthetic aortic valve replacement. Doing fine from a cardiovascular perspective. Continue management as per surgery. Status: Acute (2) HTN (hypertension): Currently well controlled. Continue current management on Nitropaste Status: Acute Qualifiers: Hypertension type: essential hypertension Qualified Code(s): I10 - Essential (primary) hypertension (3) S/P AVR (aortic valve replacement): Status: Acute (4) CVA (cerebral vascular accident): Patient has episode of cerebral vascular accident postoperative CT was negative for bleed. I may will obtain transesophageal echocardiogram if there is no other cause to rule out valvular thrombus. Currently full anticoagulation is not possible due to thrombocytopenia and recent stroke. So far patient has not shown any signs of atrial fibrillation. We will continue to monitor. Continue aspirin. Continue to monitor thrombocytopenia Status: Acute Consult Attestations Medical Necessity Statement: Patient require continuation hospitalization for above defined care Coding Level of Care Code Established Pt Acute Wan Support Specialist for Chg Fwd Patient Type Established History Detailed Exam Detailed Medical Decision Making Moderate Complexity Diagnoses Status post aortic valve replacement with bioprosthetic valve Z95.3 HTN (hypertension) I10 Hypertension type: essential hypertension S/P AVR (aortic valve replacement) Z95.2 CVA (cerebral vascular accident) I63.9
[2019-10-18 18:03] LABS: Glucose Point of Care 102 mg/dL (70-110)
[2019-10-18 18:03] LABS: Glucose Point of Care 128 mg/dL (70-110)
[2019-10-18 18:03] LABS: Glucose Point of Care 88 mg/dL (70-110)
[2019-10-18 18:03] LABS: Glucose Point of Care 111 mg/dL (70-110)
[2019-10-18 18:03] LABS: Glucose Point of Care 105 mg/dL (70-110)
[2019-10-18 18:03] LABS: Glucose Point of Care 84 mg/dL (70-110)
[2019-10-18 18:03] LABS: Glucose Point of Care 128 mg/dL (70-110)
[2019-10-18 18:03] LABS: Glucose Point of Care 100 mg/dL (70-110)
[2019-10-18 18:03] LABS: Glucose Point of Care 113 mg/dL (70-110)
[2019-10-18 18:03] LABS: Glucose Point of Care 109 mg/dL (70-110)
[2019-10-18 18:03] LABS: Glucose Point of Care 127 mg/dL (70-110)
[2019-10-18 18:03] LABS: Glucose Point of Care 97 mg/dL (70-110)
[2019-10-19] VITALS (61 sets, daily range): BP systolic 125–213; BP diastolic 55–118; PULSE 79–104; RESP 12–35; TEMP 36.6–37.5; O2SAT 92–100
[2019-10-19 03:26] LABS: ABG PCO2 32.6 mmHg (35-45); ABG PH Result 7.43 (7.35-7.45); Alveolar-Arterial Oxygen Gradi 112.9 mmHg (5-10); Base Excess ABG -2.2 mmol/L (-2.0-2.0); Blood Gas Allen Test Pos; Blood Gas Sample Site Radial, right; Blood Gas Sample Type Arterial; HCO3 ABG 21.5 mmol/L (22-26); HGB O2 Sat 95.8 % (95-100); Methemoglobin 1.3 % (0.4-1.5); Oxygen Device VENT; Oxygen Saturation ABG 97.9; PO2 ABG 91.3 mmHg (80.0-100.0); Total Hemoglobin 11.1 g/dL (12-16)
[2019-10-19 03:54] LABS: Basophils % 0.2 %; Eosinophils # 0.1 10^3/uL (0.0-0.8); Eosinophils % 0.3 %; Hematocrit 31.5 % (37.0-47.0); Hemoglobin 10.2 g/dL (11.5-15.3); Lymphocytes # 0.9 10^3/uL (0.8-4.8); Lymphocytes % 5.2 %; Mean Corpuscular HGB Conc 32.4 g/dL (30.0-36.0); Mean Corpuscular Hemoglobin 30.7 pg (28.0-34.0); Mean Corpuscular Volume 94.9 fL (81-99); Mean Platelet Volume 11.3 fL (7.4-10.4); Monocytes # 1.7 10^3/uL (0.2-0.9); Monocytes % 10.3 %; Neutrophils % 83.5 %; Nucleated Red Blood Cells % 0 %; Platelet Count 66 10^3/cmm (130-400); Red Blood Count 3.32 10^6/uL (4.1-5.3); Red Cell Distribution Width 14.8 % (12.1-15.1); White Blood Count 16.8 10^3/uL (4.0-10.0)
[2019-10-19 04:07] LABS: Anion Gap 13.1 (5-19); Carbon Dioxide 21 mmol/L (22-29); Chloride 108 mmol/L (98-107); Potassium 4.1 mmol/L (3.5-5.1); Sodium 138 mmol/L (136-145)
[2019-10-19 04:08] LABS: Blood Urea Nitrogen 13 mg/dL (8-23); Calcium 6.8 mg/dL (8.5-10.5); Glucose 122 mg/dL (65-115); Osmolality Calculated 283 mOsm/kg (285-295)
--- NOTE | 2019-10-19 06:00 | XRR_ITS ---
PROCEDURE INFORMATION: Exam: XR Chest, 1 View Exam date and time: 10/19/2019 5:05 AM Age: 74 years old Clinical indication: Device placement; Prior surgery; Patient HX: Et, og, central line chest tube; Additional info: Postop day #2 status post avr TECHNIQUE: Imaging protocol: XR of the chest Views: 1 view. COMPARISON: CR XR chest 1V portable [id number] 10/18/2019 4:12 AM FINDINGS: The thorax is partially obscured by overlying EKG leads. Tubes, catheters and devices: Endotracheal tube, feeding tube, mediastinal drains, and central venous catheter. The endotracheal tube terminates 2.8 cm above the malaika. Lungs: Asymmetric left basilar airspace/pleural disease partially obscuring the left hemidiaphragm. Heart/Mediastinum: Cardiac silhouette upper limits of normal in size. Bones/joints: Median sternotomy. XR/XR chest 1V portable [id number] IMPRESSION: Asymmetric left basilar airspace/pleural disease partially obscuring the left hemidiaphragm.
[2019-10-19] MEDS: fentaNYL 50 mcg/mL INJ 2mL IVP ×3 (06:06→19:44)
--- NOTE | 2019-10-19 06:50 | PC.NURSE ---
Report received from ISADORA Simon. Pt remains intubated. Propofol remains at 30mcg/min. Nitroglycerin and Nitroprusside weaned off pm shift. Insulin gtt discontinued, pt now on sliding scale. MInimal drainage out of chest tubes. Low urine output. Dr Luciano at bedside, ok to pull artline.
--- NOTE | 2019-10-19 06:57 | PM.PN ---
Subjective Subjective: Interval history: Postop day #2 status post AVR. Concerns of neurologic injury. Has remained intubated and sedated overnight. Hemodynamically very stable. Chest tube output 260 cc past 24 hours. Intake and output is up about another liter and a half. All lab looks good except insert for elevated white count to nearly 17,000. Chest x-ray is quite clear. Vitals/I&O/Wt Last Vital Signs Temp 97.9 F 10/19/19 05:00 Pulse 85 10/19/19 05:00 Resp 12 10/19/19 06:06 BP 159/56 10/19/19 05:00 Pulse Ox 98 10/19/19 05:00 10/18/19 10/18/19 10/19/19 14:59 22:59 06:59 Intake Total 388.630 / 502.440 5684.723 / 1975.353 266.409 / 2241.762 Output Total 327 / 327 297 / 624 380 / 1004 Balance 61.630 / 61.630 1289.723 / 1351.353 -113.591 / 1237.762 Physical Exam Resp: COMMON NORMALS: clear to auscultation bilaterally AUSCULTATION: clear to auscultation bilaterally OTHER: Sedated and mechanically ventilated Cardio: COMMON NORMALS: regular rate, regular rhythm, S1 normal heart sound present and No murmurs present (Cardio) RATE: regular rate RHYTHM: regular rhythm HEART SOUNDS: S1 normal heart sound present OTHER: 1 brief episode of tachycardia noted last night that resolved spontaneously. This may have been a brief episode of A. fib Extremity: OTHER: Generalized 2+ peripheral edema consistent with third spacing Urinary Catheter Management^: Mccabe: Cath Placed During This Visit: yes Reason for Continuing Indwelling Catheter: Accurate Measurement of Urinary Output in Critically Ill Patients Urinary Catheter Date of Insertion: 10/17/19 Urinary Catheter Time of Insertion: 08:12 Data : 10/19/19 03:12 10/19/19 03:12 A&P Assessment and plan (1) S/P AVR (aortic valve replacement): Postop day #2 status post AVR. Concerns for neurologic injury. Greatly appreciate the expertise of all of our consultants and colleagues. I would consider proceeding with weaning of the ventilator and sedation for further neurologic assessment and pulmonary status. She will eventually need diuresis to recover her third spaced volume. I would continue mediastinal drains for another 24 to 48 hours. Status: Acute Attestations Medical Necessity Statement*: Postop day #2 status post AVR Time Spent in Patient Care: 16 - 35 minutes Coding Level of Care Code Acute Automation Control Technician for Chg Fwd Diagnoses S/P AVR (aortic valve replacement) Z95.2
[2019-10-19 07:46] LABS: Glucose Point of Care 106 mg/dL (70-110)
[2019-10-19 07:46] LABS: Glucose Point of Care 115 mg/dL (70-110)
[2019-10-19 07:46] LABS: Glucose Point of Care 126 mg/dL (70-110)
[2019-10-19 07:46] LABS: Glucose Point of Care 115 mg/dL (70-110)
[2019-10-19 07:46] LABS: Glucose Point of Care 98 mg/dL (70-110)
[2019-10-19 07:46] LABS: Glucose Point of Care 89 mg/dL (70-110)
[2019-10-19 07:46] LABS: Glucose Point of Care 120 mg/dL (70-110)
[2019-10-19 07:46] LABS: Glucose Point of Care 119 mg/dL (70-110)
[2019-10-19] MEDS: oxyCODONE-APAP 5-325 mg Tablet PO ×2 (08:42→14:02)
[2019-10-19] MEDS: aspirin 81 mg Chew Tablet PO (08:43)
[2019-10-19] MEDS: pantoprazole 40 mg SDV IVP (08:44)
[2019-10-19] MEDS: chlorhexidine gluconate 0.12% Btl 473 mL 15 ML MUCOUS MEM ×2 (09:28→18:03)
[2019-10-19] MEDS: sodium chloride 0.9% 1,000 ML 75 ML IV (09:28)
--- NOTE | 2019-10-19 09:30 | PC.NURSE ---
Art line removed.. Cath tip intact. Pressure held until hemostasis obtained. No redness or swelling noted at site. Pt tolerated well.
--- NOTE | 2019-10-19 10:52 | ANE.PACU2 ---
Inpatient post-anesthesia follow up: Airway intact: No Vital signs: Temperature 99.4 F Pulse Rate 82 Respiratory Rate 12 Blood Pressure 142/67 Pulse Oximetry 97 Oxygen Delivery Me thod Mechanical Ventila tion Oxygen Flow Rate 35 Fraction of Inspir ed Oxygen 35 Hydration adequate: Yes Mental status: Altered Additional Comments: intubated and sedated; has had neuro event with some degree of rapid improvement in symptoms.
--- NOTE | 2019-10-19 11:15 | PC.NURSE ---
Zoll pads removed chest tube dressing changed. Bath provided.
[2019-10-19 11:44] LABS: Glucose Point of Care 121 mg/dL (70-110)
--- NOTE | 2019-10-19 11:48 | PC.NURSE ---
Dr Munguia called about Lovenox with platelet count of 66. Lovenox on hold for today.
--- NOTE | 2019-10-19 11:54 | PM.PN ---
Subjective Subjective: Interval history: Postop day #3 status post AVR. Neurological injuries concern for us, still intubated for airway protection. Blood pressure is climbing up we will titrate nitroglycerin Vitals/I&O/Wt Last Vital Signs Temp 99.4 F 10/19/19 08:00 Pulse 82 10/19/19 10:00 Resp 12 10/19/19 11:34 BP 142/67 10/19/19 10:00 Pulse Ox 97 10/19/19 10:00 10/18/19 10/19/19 10/19/19 22:59 06:59 14:59 Intake Total 1586.723 / 1975.353 266.409 / 2241.762 1140 / 1140 Output Total 297 / 624 380 / 1004 Balance 1289.723 / 1351.353 -113.591 / 0191.334 5403 / 1115 Physical Exam Narrative: EXAM NARRATIVE: GENERAL: Patient is intubated and sedated on vent NECK: No jugular vein distension. HEENT: No cyanosis. No icterus. No pallor. HEART: Regular S1 and S2. No murmur, rub or gallop. LUNGS: Clear to auscultate bilaterally. ABDOMEN: Soft, nontender and nondistended. Positive bowel sounds. No guarding, rebound or tenderness. CENTRAL NERVOUS SYSTEM: Cannot be assessed due to severe EXTREMITIES: Lower extremities withot edema bilaterally. Urinary Catheter Management^: Mccabe: Cath Placed During This Visit: yes Reason for Continuing Indwelling Catheter: Acute Urinary Retention or Obstruction Urinary Catheter Date of Insertion: 10/17/19 Urinary Catheter Time of Insertion: 08:12 Data : 10/19/19 03:12 10/19/19 03:12 A&P Assessment and plan (1) S/P AVR (aortic valve replacement): As per surgery. Status: Acute (2) HTN (hypertension): Blood pressure is elevated we will titrate with nitroglycerin to keep the under optimal limits Status: Acute Qualifiers: Hypertension type: essential hypertension Qualified Code(s): I10 - Essential (primary) hypertension (3) CVA (cerebral vascular accident): As per neurology. Status: Acute (4) Thrombocytopenia: Continue to monitor. Status: Acute Attestations Medical Necessity Statement*: Require continuation hospitalization for above defined care. Coding Level of Care Code Established Pt Acute Erisa Attorney for [facility] Fwd Patient Type Established History Expanded Problem Focused Exam Expanded Problem Focused Medical Decision Making High Complexity Diagnoses S/P AVR (aortic valve replacement) Z95.2 HTN (hypertension) I10 Hypertension type: essential hypertension CVA (cerebral vascular accident) I63.9 Thrombocytopenia D69.6
[2019-10-19] MEDS: propofol 1,000 MG/100 ML INJ 13.9 MG IV (14:01)
[2019-10-19] MEDS: amlodipine 5 mg Tablet PO (14:03)
--- NOTE | 2019-10-19 14:18 | PC.NURSE ---
Pt failed sedation/vent weaning. Her B/P significantly increased and her respirations were 35. Propofol restarted at 30mcg/min. Nitro increased to 70mcg/min. It took about 10-15 minutes for her respirations to level out. Her SBP in150's, so Nitro decreased to 50mcg/min. 1 pain pill and amlodipine administered per OG. Will continue to monitor.
--- NOTE | 2019-10-19 14:58 | P.PN_ITS ---
Subjective Subjective: Interval history: Patient evaluated this morning. Intubated and sedated at that time. Discussed with RN at bedside plan to perform SBT today and wean sedation. Will start on antihypertensives per tube, patient has now had permissive hypertension for 24 hours. Vitals/I&O/Wt Last Vital Signs Temp 98.7 F 10/19/19 12:00 Pulse 83 10/19/19 14:15 Resp 18 10/19/19 14:02 BP 151/60 10/19/19 14:15 Pulse Ox 95 10/19/19 14:15 10/18/19 10/19/19 10/19/19 22:59 06:59 14:59 Intake Total 1586.723 / 1975.353 266.409 / 2241.762 1347.20 / 1347.20 Output Total 297 / 624 380 / 1004 230 / 230 Balance 1289.723 / 1351.353 -113.591 / 2304.523 3328.20 / 1117.20 Physical Exam Const: GENERAL APPEARANCE: patient mechanically ventilated NUTRITIONAL APPEARANCE: obese HENMT: OTHER: ET tube in place Chest: OTHER: Postoperative dressing in place over the anterior chest wall with wound VAC in place over the anterior chest incision Resp: OTHER: Intubated, sedated, no appreciable wheezing or rhonchi Cardio: OTHER: Regular rate and rhythm, systolic murmur present. Patient has wound VAC in place over the anterior chest wall status post aortic valve replacement GI: OTHER: Obese, soft, no appreciable tenderness, hypoactive bowel sounds : OTHER: Mccabe catheter in place Extremity: OTHER: Trace nonpitting edema in the lower extremities bilaterally Neuro: OTHER: Currently intubated and sedated Psych: OTHER: Sedated, unable to assess Skin: OTHER: Postoperative changes over the anterior chest wall, no appreciable rashes or lesions Urinary Catheter Management^: Mccabe: Cath Placed During This Visit: yes Reason for Continuing Indwelling Catheter: Acute Urinary Retention or Obstruction Urinary Catheter Date of Insertion: 10/17/19 Urinary Catheter Time of Insertion: 08:12 Data : 10/19/19 03:12 10/19/19 03:12 A&P Assessment and plan (1) Status post aortic valve replacement with bioprosthetic valve: Postop day #2 aortic valve replacement with bioprosthetic valve performed by Dr. Luciano We will follow-up closely in the postoperative setting Remained intubated and sedated due to concern for CVA and close monitoring of in the postoperative setting SBT with weaning of sedation, will assess underlying neurologic status with potential extubation today Plan for CPAP use in the post extubation time period Status: Acute (2) Chronic obstructive pulmonary disease, unspecified: Respiratory therapy to assess and treat, oxygen per protocol SBT with monitoring of neurologic status due to concern for CVA Extubate to CPAP and continue this while patient is hospitalized in the perioperative period Status: Acute (3) Bipolar affective disorder: Patient is currently sedated on propofol, unable to perform psychiatric assessment of underlying condition at this time Patient is on Abilify 10 mg daily at home along with venlafaxine 150 mg daily and doxepin 3 mg daily Patient also has Versed 1 mg every 1 hours as needed for anxiety Status: Acute (4) HTN (hypertension): Blood pressure maintaining at this time, will continue to monitor blood pressure closely and titrate drips as indicated to maintain systolic blood pressure around 140 allowed 24hrs permissive HTN due to concern for acute CVA Patient is on lisinopril 2.5 mg daily at baseline started Amlodipine 5mg per tube Status: Acute Qualifiers: Hypertension type: essential hypertension Qualified Code(s): I10 - Essential (primary) hypertension Additional A&P Information Left acute arterial ischemic stroke, MCA: Neurology consulted, appreciate recommendations and assistance in patient's care. CT scan of the head performed as well as CTA of the head and neck yesterday. Upon weaning of sedation patient was noted to have left-sided gaze and right-sided neglect. Concern for embolic left MCA stroke. Allowed permissive hypertension for 24 hours, will now start on amlodipine per tube. Will start on statin daily and continue aspirin. Hold off on dual antiplatelet therapy at this time due to anemia and th rombocytopenia, will follow up with neurology recommendations. Plan to wean sedation again today we will continue to monitor neurologic function closely with potential extubation later today Leukocytosis: Believed to be stress reaction due to surgery, no evidence of any infectious process identified at this time. Continue with postoperative antibiotics Anemia: Hemoglobin 10.2 today Thrombocytopenia: New onset thrombocytopenia in the postoperative setting, received heparin prior and Lovenox yesterday. Will discontinue Lovenox at this time continue with SCDs for DVT prophylaxis. Will check DIC panel. Recheck platelet count in the morning Elevated temperature: Stabilized and resolved GI prophylaxis: Protonix 40 mg daily DVT prophylaxis: SCDs, no pharmacologic prophylaxis at this time due to anemia and thrombocytopenia and immediate postoperative setting Diet: N.p.o. Sedation: Currently on propofol CODE STATUS: Full code Disposition planning: Follow-up with case management team and will continue further discussion. Physical therapy and Occupational Therapy ordered for evaluation and treatment. Attestations Medical Necessity Statement*: Further hospitalization status post aortic valve replacement with CVA Coding Level of Care Code Acute Locomotive Crane Engineer for Chg Fwd Diagnoses Status post aortic valve replacement with bioprosthetic valve Z95.3 Chronic obstructive pulmonary disease, unspecified J44.9 Bipolar affective disorder F31.9 HTN (hypertension) I10 Hypertension type: essential hypertension
--- NOTE | 2019-10-19 16:10 | PC.NURSE ---
Central dressing change mo. Sorba Shield Contour View dressing applied. Hand hygiene and Sterile technique observed.
[2019-10-19 16:51] LABS: Glucose Point of Care 131 mg/dL (70-110)
[2019-10-19 17:11] LABS: INR 1.21 (0.8-1.2)
[2019-10-19 17:15] LABS: Partial Thromboplastin Time 34.4 SECONDS (23.9-36.7)
[2019-10-19 17:16] LABS: Fibrinogen 729 mg/dL (184-529)
[2019-10-19 17:19] LABS: D Dimer 1.23 ug/mIFEU (0-0.59)
--- NOTE | 2019-10-19 19:02 | PC.NURSE ---
Report given to ISADORA Wilkins. Pt has neuro deficits, lwent to CT yesterday no hemorrhage or edema noted. Left gaze preference noticable off sedation but not while she is sedated. Unable to wean off sedation/vent today. Lungs coarse and crackles noted. Sinus rhythm with sinus arrhythmia noted. Dressing change around chest tubes today. Minimal chest tube output.Wound vac present and patent. Central line flushes and draws blood, dressing changed today. 2 peripheral Iv, bilat hand. Urine output low 230ml. Just contacted Dr Munguia, gave updat, requested Lasix and tube feedings, Lasix and Dietary consult for tube feedings ordered. Slide Machine Tender, Nadege, notified of need for air mattress, she is looking for one, We might need to call [facility]. Blood sugars good, no insulin coverage needed.
[2019-10-19] MEDS: FUROsemide 10 mg/mL SDV 2mL 20 MG IVP (19:12)
[2019-10-19] MEDS: nitroglycerin drip 50 MG/250 ML PREMIX 22.5 MG IV (19:36)
[2019-10-19 20:22] LABS: Glucose Point of Care 108 mg/dL (70-110)
[2019-10-19] MEDS: propofol 1,000 MG/100 ML INJ 18.5 MG IV (20:29)
[2019-10-19] MEDS: atorvastatin 40 mg Tablet PO (20:35)
[2019-10-20] VITALS (75 sets, daily range): BP systolic 97–215; BP diastolic 43–93; PULSE 73–109; RESP 12–48; TEMP 36.1–37.4; O2SAT 90–100
[2019-10-20] MEDS: oxyCODONE-APAP 5-325 mg Tablet PO ×2 (01:10→08:27)
[2019-10-20] MEDS: sodium chloride 0.9% 1,000 ML 75 ML IV ×2 (02:18→17:43)
[2019-10-20 04:55] LABS: Basophils % 0.2 %; Eosinophils # 0.1 10^3/uL (0.0-0.8); Eosinophils % 0.8 %; Hematocrit 30.9 % (37.0-47.0); Hemoglobin 9.6 g/dL (11.5-15.3); Lymphocytes % 6.8 %; Mean Corpuscular HGB Conc 31.1 g/dL (30.0-36.0); Mean Corpuscular Hemoglobin 29.9 pg (28.0-34.0); Mean Corpuscular Volume 96.3 fL (81-99); Mean Platelet Volume 12.1 fL (7.4-10.4); Monocytes # 0.9 10^3/uL (0.2-0.9); Monocytes % 6.3 %; Neutrophils # 12.2 10^3/uL (1.8-7.7); Neutrophils % 85.3 %; Nucleated Red Blood Cells % 0 %; Platelet Count 62 10^3/cmm (130-400); Red Blood Count 3.21 10^6/uL (4.1-5.3); Red Cell Distribution Width 14.5 % (12.1-15.1); White Blood Count 14.4 10^3/uL (4.0-10.0)
[2019-10-20 05:08] LABS: INR 1.19 (0.8-1.2)
[2019-10-20] MEDS: propofol 1,000 MG/100 ML INJ 9.3 MG IV (05:16)
[2019-10-20 05:27] LABS: Alanine Aminotransferase 24 U/L (0-33); Albumin Level 2.4 g/dL (3.5-5.2); Alkaline Phosphatase 85 IU/L (35-105); Anion Gap 15.1 (5-19); Aspartate Amino Transferase 29 U/L (0-32); Blood Urea Nitrogen 15 mg/dL (8-23); Calcium 7.1 mg/dL (8.5-10.5); Carbon Dioxide 22 mmol/L (22-29); Chloride 106 mmol/L (98-107); Globulin 2.5 g/dL (1.3-4.6); Glucose 147 mg/dL (65-115); Osmolality Calculated 287 mOsm/kg (285-295); Potassium 4.1 mmol/L (3.5-5.1); Sodium 139 mmol/L (136-145); Total Bilirubin 0.8 mg/dL (0.15-1.2); Total Protein 4.9 g/dL (6.6-8.7)
--- NOTE | 2019-10-20 05:57 | PC.NURSE ---
Shift Summary Pt remains intubated and sedated on PC-PSV. Nitro drip titrated throughout night for BP 140's-160 systolic pressures. Little chest tube output tonight 35ml total. Urine output improved after 20mg lasix IV. Approx 1160 urine output. Neuro checks limited throughout night due to sedation, propofol infusing at 30mcg/kg/min. Has not followed any commands, did observe movement of right lower extremity.
--- NOTE | 2019-10-20 06:00 | XRR_ITS ---
PROCEDURE INFORMATION: Exam: XR Chest, 1 View Exam date and time: 10/20/2019 4:23 AM Age: 74 years old Clinical indication: Device placement; Other: Et, og, chest tube, central line; Prior surgery; Additional info: Postop aortic valve replacement TECHNIQUE: Imaging protocol: XR of the chest Views: 1 view. COMPARISON: CR XR chest 1V portable [id number] 10/19/2019 4:54 AM FINDINGS: The thorax is partially obscured by overlying EKG leads. Tubes, catheters and devices: Endotracheal tube, feeding tube, and central venous catheter. The endotracheal tube terminates 2.7 cm above the malaika. Lungs: Worsening bibasilar airspace disease and pleural effusions, with obscuration of the left hemidiaphragm. Heart/Mediastinum: Borderline cardiomegaly with asymmetric prominence of the pulmonary vasculature. Bones/joints: Median sternotomy. Degenerative change . XR/XR chest 1V portable [id number] IMPRESSION: Worsening bibasilar airspace disease and pleural effusions, with obscuration of the left hemidiaphragm.
[2019-10-20] MEDS: fentaNYL 50 mcg/mL INJ 2mL IVP ×3 (06:09→11:57)
--- NOTE | 2019-10-20 06:26 | P.PN_ITS ---
Subjective Subjective: Interval history: Postop day #3 status post AVR with concerns of neurologic injury. Remains intubated and sedated. Low mediastinal drain output, proximal 125 cc past 24 hours. Concerns of developing right pleural effusion versus early right lower lobe pneumonia. White count has decreased however. Overall volume status is quite high probably 5 to 6 L up and will need a ggressive and consistent diuresis. 20 mg Lasix given yesterday evening by Dr. Munguia. I have ordered another 20 mg of Lasix now. Vitals/I&O/Wt Last Vital Signs Temp 98.4 F 10/20/19 06:15 Pulse 84 10/20/19 06:15 Resp 15 10/20/19 06:15 BP 147/65 10/20/19 06:15 Pulse Ox 98 10/20/19 06:15 10/19/19 10/19/19 10/20/19 14:59 22:59 06:59 Intake Total 1347.20 / 1347.20 1348.162 / 2695.362 222.945 / 2918.307 Output Total 230 / 230 1275 / 1505 310 / 1815 Balance 1117.20 / 1117.20 73.162 / 1190.362 -87.055 / 1103.307 Physical Exam Chest: OTHER: Surgical dressings and wound VAC dressing in place. Mediastinal drains in position. Decreasing drain output Resp: OTHER: Basilar crackles. Cardio: COMMON NORMALS: regular rate and regular rhythm RATE: regular rate RHYTHM: regular rhythm Extremity: OTHER: Peripheral edema still noted and consistent with overall volume expansion Urinary Catheter Management^: Mccabe: Cath Placed During This Visit: yes Reason for Continuing Indwelling Catheter: Acute Urinary Retention or Obstruction Urinary Catheter Date of Insertion: 10/17/19 Urinary Catheter Time of Insertion: 08:12 Data : 10/20/19 03:55 10/20/19 03:55 A&P Assessment and plan (1) S/P AVR (aortic valve replacement): Postop day #3 status post AVR Recommend now beginning more active diuresis to recollect and element a third space and hopefully clear what is probably developing right pleural effusion. Status: Acute Attestations Medical Necessity Statement*: Postop day #3 status post AVR Coding Level of Care Code Acute Tinter Photograph for Keyana Fwcindy Diagnoses S/P AVR (aortic valve replacement) Z95.2
[2019-10-20] MEDS: FUROsemide 10 mg/mL SDV 2mL 20 MG IVP (06:34)
--- NOTE | 2019-10-20 06:39 | PC.NURSE ---
Gaze preference Pt open eyes spontaneously this AM. Observed gaze preference to left. PERRL. Pt remains sedated. Difficult to assess neuro status.
[2019-10-20 07:55] LABS: Glucose Point of Care 127 mg/dL (70-110)
[2019-10-20] MEDS: morphine 4 mg/mL SDV 1 mL 2 MG IVP (08:21)
[2019-10-20] MEDS: aspirin 81 mg Chew Tablet PO (08:23)
[2019-10-20] MEDS: hyDRALAzine 25 mg Tablet PO ×2 (08:23→14:47)
[2019-10-20] MEDS: amlodipine 5 mg Tablet 10 MG PO (08:24)
[2019-10-20] MEDS: chlorhexidine gluconate 0.12% Btl 473 mL 15 ML MUCOUS MEM ×2 (08:24→17:43)
[2019-10-20] MEDS: hyDRALAzine 20 mg/mL INJ 1 mL 10 MG IVP ×2 (08:28→12:01)
--- NOTE | 2019-10-20 09:33 | CTR_ITS ---
PROCEDURE INFORMATION: Exam: CT Head Without Contrast Exam date and time: 10/20/2019 12:55 PM Age: 74 years old Clinical indication: Other: CVA; Additional info: Cva/ recent heart valve surgery TECHNIQUE: Imaging protocol: Computed tomography of the head without contrast. Radiation optimization: All CT scans at this facility use at least one of these dose optimization techniques: automated exposure control; mA and/or kV adjustment per patient size (includes targeted exams where dose is matched to clinical indication); or iterative reconstruction. COMPARISON: CT head wo con* [id number] 10/18/2019 11:09 AM FINDINGS: Brain: Symmetric prominence of the cortical sulci. Small-vessel ischemic change including bilateral basal ganglia lacunar infarcts, which can be better characterized with MRI if clinically indicated. No acute cortical infarct, mass effect, or intracranial hemorrhage. Ventricles: Normal configuration of the ventricles. Bones/joints: No acute calvarial pathology prior new Sinuses: Ethmoid and sphenoid sinus fluid. Mastoid air cells: No mastoid effusion. Vasculature: Vascular and dural calcification. Soft tissues: Unremarkable soft tissues. CT/CT head wo con* [id number] IMPRESSION: Sinusitis and small-vessel ischemic change. Radiation Dose CTDIVOL = (mGy): DLP = 752.8 (mGy-cm)
[2019-10-20] MEDS: labetalol 5 mg/mL SDV 20mL 10 MG IVP (09:39)
[2019-10-20] MEDS: levofloxacin-dextrose 5 % 750 MG/150 ML PREMIX 100 MG IV (09:43)
[2019-10-20] MEDS: metoprolol tartrate 25 mg Tablet PO (09:46)
--- NOTE | 2019-10-20 09:56 | P.PN_ITS ---
Subjective Subjective: Interval history: Patient intubated and sedated Sedation later weaned and patient evaluated, continues to have left gaze. Continues to be tachypneic and hypertensive with propofol sedation weaned. Patient not squeezing on either hand, not following any specific commands. Called and discussed with cardiothoracic surgeon, patient remains hypertensive despite scheduling medications per tube. Discussion with RN and respiratory therapy at bedside Vitals/I&O/Wt Last Vital Signs Temp 98.4 F 10/20/19 06:15 Pulse 84 10/20/19 06:15 Resp 35 H 10/20/19 09:27 BP 147/65 10/20/19 06:15 Pulse Ox 90 10/20/19 09:19 10/19/19 10/20/19 10/20/19 22:59 06:59 14:59 Intake Total 1348.162 / 2695.362 222.945 / 2918.307 67.35 / 67.35 Output Total 1275 / 1505 310 / 1815 Balance 73.162 / 1190.362 -87.055 / 1103.307 67.35 / 67.35 Physical Exam Const: GENERAL APPEARANCE: patient mechanically ventilated NUTRITIONAL SHARON EARANCE: obese HENMT: OTHER: ET tube in place Chest: OTHER: Postoperative dressing in place over the anterior chest wall with wound VAC in place over the anterior chest incision Resp: OTHER: Intubated, coarse breath sounds bilaterally with frothy sputum from tube Cardio: OTHER: Tachycardic, regular rhythm, systolic murmur present. Patient has wound VAC in place over the anterior chest wall status post aortic valve replacement GI: OTHER: Obese, soft, no appreciable tenderness, hypoactive bowel sounds : OTHER: Mccabe catheter in place Extremity: OTHER: Trace nonpitting edema in the lower extremities bilaterally Neuro: OTHER: Currently intubated, sedation weaned with patient continues to have a left-sided gaze, not following commands at this time Psych: OTHER: Sedated, unable to assess Skin: OTHER: Postoperative changes over the anterior chest wall, no appreciable rashes or lesions Urinary Catheter Management^: Mccabe: Cath Placed During This Visit: yes Reason for Continuing Indwelling Catheter: Acute Urinary Retention or Obstructio n Urinary Catheter Date of Insertion: 10/17/19 Urinary Catheter Time of Insertion: 08:12 Data : 10/20/19 03:55 10/20/19 03:55 A&P Assessment and plan (1) Status post aortic valve replacement with bioprosthetic valve: Postop day #3 aortic valve replacement with bioprosthetic valve performed by Dr. Luciano We will follow-up closely in the postoperative setting Remained intubated Sedation weaned this morning and patient remains hypertensive and tachypneic. Will repeat ABG today. Repeat chest x-ray and concern for fluid overload as well as concern for developing pneumonia with increased sputum production. Increased antibiotic coverage. Status: Acute (2) Chronic obstructive pulmonary disease, unspecified: Respiratory therapy to assess and treat Patient tachypneic with SBT today, significantly elevated blood pressures despite scheduling antihypertensives. Patient appears to be fluid overload with also concern for developing pneumonia. Sputum culture ordered and sent, repeat ABG. IV Lasix given again this morning, will monitor diuresis Started on broad-spectrum antibiotics with cefepime, Levaquin and Vanco Extubate to CPAP and continue this while patient is hospitalized in the perioperative period Status: Acute (3) Bipolar affective disorder: Patient is currently sedated on propofol, unable to perform psychiatric assessment of underlying condition at this time Patient is on Abilify 10 mg daily at home along with venlafaxine 150 mg daily and doxepin 3 mg daily Patient also has Versed 1 mg every 1 hours as needed for anxiety Status: Acute (4) HTN (hypertension): Blood pressures remained elevated. Started on amlodipine 5 mg yesterday, increase to 10 mg today Started on metoprolol twice daily Started on hydralazine 25 mg 3 times a day Hydralazine and labetalol as needed for elevated blood pressures. Maintain systolic blood pressure at or less than 140. Patient remains on nitro drip, continues to have labile blood pressures. Discussed with cardiothoracic surgeon this morning. Will discuss further with cardiology, call placed and waiting concrete puddler back. Status: Acute Qualifiers: Hypertension type: essential hypertension Qualified Code(s): I10 - Essential (primary) hypertension Additional A&P Information Left acute arterial ischemic stroke, MCA: Sedation weaned this morning patient continues to have left-sided gaze, not following any commands at time of exam this morning. Will repeat CT scan of the head without contrast today. We will follow-up with neurology today. Continue on aspirin and statin. 24 hours of permissive hypertension initially, now working on blood pressure control. Concern for developing ventilator associated pneumonia: Continue on cefepime, Levaquin and started on vancomycin Anemia: Hemoglobin 9.6 today Thrombocytopenia: Platelet count at 62,000, question of underlying DIC, increasing antibiotic coverage will repeat blood cultures and sputum culture ordered. Holding on DVT prophylaxis due to anemia and thrombocytopenia. Elevated temperature: Stabilized and resolved GI prophylaxis: Protonix 40 mg daily DVT prophylaxis: SCDs, no pharmacologic prophylaxis at this time due to anemia and thrombocytopenia and immediate postoperative setting Diet: Tube feeding Sedation: Weaned propofol at time of exam CODE STATUS: Full code Disposition planning: Follow-up with case management team and will continue further discussion. Physical therapy and Occupational Therapy ordered for evaluation and treatment. Attestations Medical Necessity Statement*: There is further hospitalization status post aortic valve replacement with acute CVA Coding Level of Care Code Acute Manufacturing Engineer Chief for Pastor Fwd Diagnoses Status post aortic valve replacement with bioprosthetic valve Z95.3 Chronic obstructive pulmonary disease, unspecified J44.9 Bipolar affective disorder F31.9 HTN (hypertension) I10 Hypertension type: essential hypertension
--- NOTE | 2019-10-20 10:27 | USCV_ITS ---
Nancy Brasher Age: 74 Gender: F : 1945 Exam Date: 10/20/2019 10:45 Ordering Phys: Roxanne Munguia DO Technologist: Maral Taylor Exam Location: [facility] [place] Indication: BP: 147 / 65 HR: 102 Rhythm: Sinus Technical Quality: Suboptimal MEASUREMENTS (Male / Female) Normal Values 2D ECHO LVOT Diameter 1.6 cm DOPPLER AV Peak Velocity 268.0 cm/s LVOT Peak Velocity 166.0 cm/s AV Area Cont Eq vti 1.9 cm squared AV Area Cont Eq pk 1.3 cm squared FINDINGS Left Ventricle Right Ventricle Right Atrium Left Atrium Mitral Valve Aortic Valve Tricuspid Valve Pulmonic Valve Pericardium Aorta CONCLUSIONS Please note that this is a limited echo to assess aortic valve to rule out thrombus. 1-Normal left ventricle ejection fraction, no wall motion abnormality, left ventricle ejection fraction estimated 60% 2-Aortic valve not well visualized, velocity across the aortic valve is 3.9 cm/s which may not be accurate due to misalignment, no valvular regurgitation. 3-Moderate mitral valve thickening without stenosis 4-There is no pericardial effusion 5-If clinically indicated transesophageal echocardiogram will be better modality to assess aortic valve function Brent Deluca MD (Electronically Signed) Final Date: 20 October 2019 20:51 S
[2019-10-20] MEDS: cefepime 1,000 MG in sodium chloride 0.9% (plus) 50 ML 100 MG IV ×2 (10:30→21:17)
[2019-10-20 11:10] LABS: Glucose Point of Care 155 mg/dL (70-110)
[2019-10-20] MEDS: vancomycin 1,000 MG in sodium chloride 0.9% 250 ML 250 MG IV (11:18)
--- NOTE | 2019-10-20 12:02 | PM.PN ---
Subjective Subjective: Interval history: Patient is more agitated, blood pressure is spiking up. She is awaiting CT of the head. She remains in sinus tachycardic. I have detailed discussion with patient's next of kin her Sister Pearl over the phone. All questions were answered. She understand the process of the disease and the treatment. Vitals/I&O/Wt Last Vital Signs Temp 98.4 F 10/20/19 06:15 Pulse 84 10/20/19 06:15 Resp 25 H 10/20/19 11:09 BP 147/65 10/20/19 06:15 Pulse Ox 90 10/20/19 09:19 10/19/19 10/20/19 10/20/19 22:59 06:59 14:59 Intake Total 1448.162 / 2795.362 222.945 / 3018.307 290.375 / 290.375 Output Total 1275 / 1505 310 / 1815 Balance 173.162 / 1290.362 -87.055 / 1203.307 290.375 / 290.375 Physical Exam Narrative: EXAM NARRATIVE: GENERAL: Patient is awake as sedation is off, I am not sure about orientation that she has upward gaze NECK: No jugular vein distension. HEENT: No cyanosis. No icterus. No pallor. HEART: Regular S1 and S2. No murmur, rub or gallop. LUNGS: bilaterally. ABDOMEN: Mildly distended, faint bowel sounds sounds. No guarding, rebound or tenderness. CENTRAL NERVOUS SYSTEM: Upward gaze, moving left arm left leg and right leg. Not moving right arm EXTREMITIES: Lower extremities with 1+ edema bilaterally. Urinary Catheter Management^: Mccabe: Cath Placed During This Visit: yes Reason for Continuing Indwelling Catheter: Acute Urinary Retention or Obstruction Urinary Catheter Date of Insertion: 10/17/19 Urinary Catheter Time of Insertion: 08:12 Data : 10/20/19 03:55 10/20/19 03:55 Micro: Microbiology 10/20/19 10:24 Blood Culture - Preliminary Blood SPECIMEN COLLECTED 10/20/19 10:25 Blood Culture - Preliminary Blood SPECIMEN COLLECTED 10/20/19 08:45 Gram Stain - Final Sputum - Endotracheal Tube Aspirate A&P Assessment and plan (1) S/P AVR (aortic valve replacement): Stable cardiac and aortic valve carrillo. Status post aortic valve replacement. Today echocardiogram was performed to see the status of the valve and like to make sure there is no thrombus Status: Acute (2) CVA (cerebral vascular accident): As per neurology. Today CT scan will be repeated. Patient is not able to move right arm. She appears to be agitated with upward gaze Status: Acute Qualifiers: CVA mechanism: other Qualified Code(s): I63.89 - Other cerebral infarction (3) Thrombocytopenia: Stable at 62 platelets. Continue to monitor not on anticoagulation due to rapid drop in platelets. Status: Acute (4) HTN (hypertension): Blood pressure difficult to control she is on nitro drip Dr. Munguia switched patient to Coreg continue amlodipine added losartan to the regimen. Continue to control blood pressure with PRN labetalol and nitroglycerin IV. Our goal is to not to drop too much and keep it around 140s to 150s systolic Status: Acute Qualifiers: Hypertension type: essential hypertension Qualified Code(s): I10 - Essential (primary) hypertension Attestations Medical Necessity Statement*: Patient require continuation of hospitalization for above defined care. Coding Level of Care Code Established Pt Acute It Help Desk Analyst for 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 Patient Type Established History Comprehensive Exam Comprehensive Medical Decision Making High Complexity Diagnoses S/P AVR (aortic valve replacement) Z95.2 CVA (cerebral vascular accident) I63.89 CVA mechanism: other Thrombocytopenia D69.6 HTN (hypertension) I10 Hypertension type: essential hypertension
[2019-10-20] MEDS: losartan 50 mg Tablet 100 MG PO (12:14)
--- NOTE | 2019-10-20 12:18 | PC.NURSE ---
Pt failed vent/sedation weaning. Tachypneic shallow breathing noted. [place] tank copious secretions noted in ET. Frequent suctioning and oral care provided. B/P labile today, especially during sedation weaning. SBP 215-125. Dr Munguia changed B/P meds this am Dr Deluca just came by and added mored SHe has had amlodipine, hydralazine, metoprolol per OG this am. She has been given Morphine, fentanyl, Hydralazine and Labetolol IV for her SBp. She just received another dose of hydralazine and fentanyl per IV and started [place] per OG. The Nitro gtt is stil infusing (MAR does not reflect actual amount left in bottle), It is being adjusted very frequently in an attempt to keep SBP around 140. Sputum and blood cultures collected. Urine collected. Broad spectrum antibiotics started. Pt still hs left gaze preference, moving left side, right leg moving infrequently, while right arm if it moves, has been rare.chest tube output miniscule. Urine output much better today, at least [address] ml at this point[address] Dr Munguia came by while Dr Deluca here, pt struggling, decided to restart Propofol, extubation will not be possible today. SBp improving , at 135 now with Nitro gtt at 30mcg/min.
--- NOTE | 2019-10-20 13:36 | PC.OT ---
OT EVALUATION HELD DUE TO INTUBATION AND NEUROLOGICAL STATUS. WILL ATTEMPT AGAIN TOMORROW.
--- NOTE | 2019-10-20 14:00 | PC.NURSE ---
Addendum entered by Janina Jasso RN 10/20/19 19:35: EKG patches changed. Original Note: Pt went for head CT. SBP increased, so propofol increased to 40mcg/min. Specialty air mattress placed on bed. Pt back from CT. Propofol decreased back to 30 mcg/min. Bath, shampoo and bed linen change provided. Pt tolerated well. SBP 120-145 during bathing.
--- NOTE | 2019-10-20 14:56 | PC.SOCIAL ---
Pg 2 IMM Explained to pt's family via phone. They verbally understand. Copy provided to pt & left on pt's bedside table. Signed, dated, & timed a copy & placed in pt's chart.
[2019-10-20 15:29] LABS: Bilirubin Urine Neg (NEGATIVE); Blood Urine 2+ (Negative); Glucose Urine UA Norm (Normal); Ketones Urine 1+ (Negative); Leukocyte Esterase Urine Negative (Negative); Nitrate Urine Negative (Negative); Protein Urine Neg (Negative); Urine Appearance Hazy (CLEAR); Urine Color Yellow (Yellow); Urobilinogen Urine Norm (Negative); pH Urine 5 (5-7)
[2019-10-20 15:30] LABS: RBC Urine 50-80 /hpf (0-2)
[2019-10-20 15:32] LABS: Add Urine Culture? No; Bacteria Urine 1+; Fine Granular Casts Urine 0-4 /lpf; Hyaline Casts Urine 0-4; Mucus Urine 2+
--- NOTE | 2019-10-20 16:30 | PC.NURSE ---
Left and right hand IVs discontinued due to IV protocol. Catheter tips were intact. Patient tolerated well. No redness at site.
--- NOTE | 2019-10-20 17:00 | PC.SLP ---
Orders received to evaluate the patient. However, patient remains intubated and medically unstable. Will continue to monitor the patient and assess her 24 hours post intubation is the patient is fully able to participate in her assessment.
[2019-10-20 17:16] LABS: Glucose Point of Care 91 mg/dL (70-110)
[2019-10-20] MEDS: carvedilol 12.5 mg Tablet PO (17:34)
[2019-10-20] MEDS: propofol 1,000 MG/100 ML INJ 13.9 MG IV (17:34)
[2019-10-20 20:44] LABS: Glucose Point of Care 107 mg/dL (70-110)
--- NOTE | 2019-10-20 21:10 | PC.NURSE ---
BP Meds Dr. Deluca notified via phone for clarification of night time BP meds. BP has been 90's-120's so far this shift. Had to titrate propofol down for lower BP's. Nitro drip remains off. Received telephone orders to hold night dose of hydralizine and losartan.
[2019-10-20] MEDS: atorvastatin 40 mg Tablet PO (21:17)
[2019-10-21] VITALS (62 sets, daily range): BP systolic 101–180; BP diastolic 44–110; PULSE 57–98; RESP 12–42; TEMP 36.4–36.6; O2SAT 86–100
[2019-10-21] MEDS: propofol 1,000 MG/100 ML INJ 13.9 MG IV ×2 (01:24→12:05)
--- NOTE | 2019-10-21 02:18 | PC.NURSE ---
Physician Notification/ Urine Output Urine output 70ml since 7pm. Dr. Luciano's progress notes reviewed. Attempted to contact via phone unable to reach and unable to leave message. Dr. Deluca notified and received orders for 20mg IVP lasix and to hold fluids for now.
[2019-10-21] MEDS: FUROsemide 10 mg/mL SDV 2mL 20 MG IVP (02:24)
[2019-10-21 04:19] LABS: Basophils % 0.3 %; Eosinophils # 0.2 10^3/uL (0.0-0.8); Eosinophils % 1.9 %; Hematocrit 30.4 % (37.0-47.0); Hemoglobin 9.2 g/dL (11.5-15.3); Lymphocytes # 0.8 10^3/uL (0.8-4.8); Mean Corpuscular HGB Conc 30.3 g/dL (30.0-36.0); Mean Corpuscular Hemoglobin 29.5 pg (28.0-34.0); Mean Corpuscular Volume 97.4 fL (81-99); Mean Platelet Volume 11.3 fL (7.4-10.4); Monocytes % 8.8 %; Neutrophils # 9.2 10^3/uL (1.8-7.7); Neutrophils % 81.3 %; Nucleated Red Blood Cells % 0 %; Platelet Count 67 10^3/cmm (130-400); Red Blood Count 3.12 10^6/uL (4.1-5.3); Red Cell Distribution Width 14.6 % (12.1-15.1); White Blood Count 11.3 10^3/uL (4.0-10.0)
[2019-10-21 04:30] LABS: INR 1.21 (0.8-1.2)
[2019-10-21 04:43] LABS: Alanine Aminotransferase 20 U/L (0-33); Albumin Level 2.3 g/dL (3.5-5.2); Alkaline Phosphatase 131 IU/L (35-105); Anion Gap 14.8 (5-19); Aspartate Amino Transferase 26 U/L (0-32); Blood Urea Nitrogen 30 mg/dL (8-23); Calcium 7.3 mg/dL (8.5-10.5); Carbon Dioxide 20 mmol/L (22-29); Chloride 105 mmol/L (98-107); Globulin 2.4 g/dL (1.3-4.6); Glucose 111 mg/dL (65-115); Osmolality Calculated 280 mOsm/kg (285-295); Potassium 3.8 mmol/L (3.5-5.1); Sodium 136 mmol/L (136-145); Total Bilirubin 0.8 mg/dL (0.15-1.2); Total Protein 4.7 g/dL (6.6-8.7)
[2019-10-21] MEDS: vancomycin 1,000 MG in sodium chloride 0.9% 250 ML 250 MG IV ×2 (05:22→23:11)
--- NOTE | 2019-10-21 05:29 | PC.NURSE ---
HR Patient has been intermittent sinus rhythm-sinus tamiko. HR as low as 54, has not sustained.
--- NOTE | 2019-10-21 06:00 | XRR_ITS ---
PROCEDURE INFORMATION: Exam: XR Chest, 1 View Exam date and time: 10/21/2019 4:40 AM Age: 74 years old Clinical indication: Device placement; Prior surgery; Surgery date: Post-operative (0-2 days); Surgery type: Aortic valve replacement; Patient HX: Et, og, central line, chest tube; Additional info: S/P aortic valve replacement, intubated, hypoxia TECHNIQUE: Imaging protocol: XR of the chest Views: 1 view. COMPARISON: CR XR chest 1V portable [id number] 10/20/2019 4:12 AM FINDINGS: Tubes, catheters and devices: Endotracheal tube is slightly above the mala[place]. Central venous catheter via the right jugular approach with the tip projecting over the superior vena cava. Nasogastric tube coiled within the stomach Lungs: central pulmonary vasculature is prominent and indistinct. Mild airspace consolidation within the lung bases left greater than right. Pleural space: Pleural effusions left greater than right. Heart/Mediastinum: cardiac silhouette is enlarged. Bones/joints: Prior sternotomy XR/XR chest 1V portable [id number] IMPRESSION: Mild edema with mild basilar consolidation and pleural effusions left greater than right. Minimal change.
--- NOTE | 2019-10-21 06:43 | PC.NURSE ---
Physician Rounding Dr. Luciano at bedside and pulled both mediastinal tubes and removed wound vac from surgical incision placed dry sterile dressings. Pacer wires were not removed at this time due to bradycardia throughout night. Surgical bra on patient. Physician notified of low urine output despite lasix. Verbal orders to resume IV fluids at this time, address nutrition with dietary and needing PICC line placement today.
--- NOTE | 2019-10-21 06:57 | PC.NURSE ---
Dietary Notification Pamela in dietary notified at this time for dietitian consult for tube feedings for today. Unable to speak with dietitian at this time, reports she will notify dietitian for consult.
--- NOTE | 2019-10-21 07:00 | PC.NURSE ---
report received from Morenita Wilkins . Pt had a few periods of bradycardia pm shift. Evening dose of hydralazine and [place] held. She has had copious amount of secretions in ETT. No purposeful movements noted.
[2019-10-21] MEDS: sodium chloride 0.9% 1,000 ML 75 ML IV (07:02)
--- NOTE | 2019-10-21 07:35 | PC.NUTR ---
NUTR TF RECOMMENDATIONS: Pulmocare with goal rate of 35 ml/hr providing 1260 kcal (89%), 53 g PRO (85%), and 659 ml fluid (47%)(%NEEDS). Suggest starting TF at 15 ml/hr and increase by 10 ml Q6H as tolerated until goal rate is met. Suggest 80 ml H2O flushes Q4H to approach fluid needs or per physician.
[2019-10-21 07:38] LABS: Glucose Point of Care 95 mg/dL (70-110)
--- NOTE | 2019-10-21 09:19 | PM.PN ---
Subjective Subjective: Interval history: Patient intubated and sedated at time of exam RN at bedside reported that patient had episodes of bradycardia overnight, low blood pressures overnight. Reported that she was not given nighttime dose of losartan due to soft blood pressure. Vitals/I&O/Wt Last Vital Signs Temp 97.7 F 10/21/19 06:00 Pulse 57 L 10/21/19 06:00 Resp 20 H 10/21/19 09:10 BP 108/45 10/21/19 06:00 Pulse Ox 98 10/21/19 06:00 10/20/19 10/21/19 10/21/19 22:59 06:59 14:59 Intake Total 1122.378 / 1396.953 748.233 / 2145.186 Output Total 360 / 1170 195 / 1365 Balance 762.378 / 226.953 553.233 / 780.186 Physical Exam Const: GENERAL APPEARANCE: patient mechanically ventilated NUTRITIONAL APPEARANCE: obese HENMT: OTHER: ET tube in place Chest: OTHER: Postoperative dressing in place over the anterior chest wall Resp: OTHER: Intubated, coarse breath sounds bilaterally Cardio: OTHER: Regular rate and rhythm, systolic murmur GI: OTHER: Obese, soft, no appreciable tenderness, hypoactive bowel sounds : OTHER: Mccabe catheter in place Extremity: OTHER: Trace nonpitting edema in the lower extremities bilaterally Neuro: OTHER: Currently intubated, sedation turned down at time of exam and patient was moving arms and legs but continued to have left-sided gaze Psych: OTHER: Sedated, unable to assess Skin: OTHER: Postoperative changes over the anterior chest wall, no appreciable rashes or lesions Urinary Catheter Management^: Mccabe: Cath Placed During This Visit: yes Reason for Continuing Indwelling Catheter: Accurate Measurement of Urinary Output in Critically Ill Patients Urinary Catheter Date of Insertion: 10/17/19 Urinary Catheter Time of Insertion: 08:12 Data : 10/21/19 04:00 10/21/19 04:00 Micro: Microbiology 10/20/19 10:24 Blood Culture - Preliminary Blood SPECIMEN COLLECTED 10/20/19 10:25 Blood Culture - Preliminary Blood SPECIMEN COLLECTED 10/20/19 08:45 Gram Stain - Final Sputum - Endotracheal Tube Aspirate A&P Assessment and plan (1) Status post aortic valve replacement with bioprosthetic valve: Postop day #4 aortic valve replacement with bioprosthetic valve performed by Dr. Luciano We will follow-up closely in the postoperative setting Remained intubated Plan for SBT today, weaning sedation to determine underlying neurologic status Status: Acute (2) Chronic obstructive pulmonary disease, unspecified: Respiratory therapy to assess and treat Concern for developing ventilator associated pneumonia, remains on Levaquin, cefepime and vancomycin SBT again today Extubate to CPAP when able and continue this while patient is hospitalized in the perioperative period Status: Acute (3) Bipolar affective disorder: Patient is currently sedated on propofol Patient is on Abilify 10 mg daily at home along with venlafaxine 150 mg daily and doxepin 3 mg daily Patient also has Versed 1 mg every 1 hours as needed for anxiety Status: Acute (4) HTN (hypertension): Discussed with cardiology and cardiothoracic surgery yesterday Patient was increased to amlodipine 10 mg daily Hydralazine 25 mg 3 times a day Coreg will be decreased today to 3.125 mg twice daily due to concern for heart rate in the mid to upper 50s overnight. Started on losartan yesterday, this is been discontinued due to patient being having soft blood pressure and worsening renal function today We will continue to titrate medications throughout the day as needed Status: Acute Qualifiers: Hypertension type: essential hypertension Qualified Code(s): I10 - Essential (primary) hypertension Additional A&P Information Acute CVA: CT head repeated on 10/20/2019 showing bilateral basal ganglia lacunar infarcts. Continue on aspirin and statin, continuing to monitor blood pressure goal closely with goal to keep systolic blood pressure around 140-150. Dr. Jin consulted Concern for developing ventilator associated pneumonia: Continue on cefepime, Levaquin and vancomycin, sputum culture pending Anemia: Hemoglobin 9.2 today Thrombocytopenia: Platelet count slightly improved to 67,000 today. 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
--- NOTE | 2019-10-21 09:35 | PM.PN ---
Subjective Subjective: Interval history: POD#4 s/p AVR. Results of most recent CT scan noted. Low mediastinal drain output. Vitals/I&O/Wt Last Vital Signs Temp 97.7 F 10/21/19 06:00 Pulse 57 L 10/21/19 06:00 Resp 20 H 10/21/19 09:10 BP 108/45 10/21/19 06:00 Pulse Ox 98 10/21/19 06:00 10/20/19 10/21/19 10/21/19 22:59 06:59 14:59 Intake Total 1122.378 / 1396.953 748.233 / 2145.186 Output Total 360 / 1170 195 / 1365 Balance 762.378 / 226.953 553.233 / 780.186 Physical Exam Chest: OTHER: Wound vac dressing removed. Sternum stable. Mediastinal drains removed. New dressings applied. Urinary Catheter Management^: Mccabe: Cath Placed During This Visit: yes Reason for Continuing Indwelling Catheter: Accurate Measurement of Urinary Output in Critically Ill Patients Urinary Catheter Date of Insertion: 10/17/19 Urinary Catheter Time of Insertion: 08:12 Data : 10/21/19 04:00 10/21/19 04:00 Micro: Microbiology 10/20/19 10:24 Blood Culture - Preliminary Blood SPECIMEN COLLECTED 10/20/19 10:25 Blood Culture - Preliminary Blood SPECIMEN COLLECTED 10/20/19 08:45 Gram Stain - Final Sputum - Endotracheal Tube Aspirate A&P Assessment and plan (1) Status post aortic valve replacement with bioprosthetic valve: POD#4 s/p AVR; neurologic deficit Plan: PICC line; D/C central line Daily incision care. Wear surgical bra at all times other than incision care Nutritional assessment. Greatly appreciate the expertise of our Cardiology and Hospitalists colleagues. 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
[2019-10-21] MEDS: amlodipine 5 mg Tablet 10 MG PO (09:52)
[2019-10-21] MEDS: hyDRALAzine 25 mg Tablet PO ×2 (09:52→14:23)
[2019-10-21] MEDS: pantoprazole 40 mg SDV IVP (09:53)
[2019-10-21] MEDS: cefepime 1,000 MG in sodium chloride 0.9% (plus) 50 ML 100 MG IV ×2 (09:54→21:32)
[2019-10-21] MEDS: chlorhexidine gluconate 0.12% Btl 473 mL 15 ML MUCOUS MEM ×2 (10:23→17:47)
[2019-10-21] MEDS: levofloxacin-dextrose 5 % 750 MG/150 ML PREMIX 100 MG IV (10:31)
[2019-10-21] MEDS: fentaNYL 50 mcg/mL INJ 2mL IVP ×2 (11:09→12:39)
[2019-10-21] MEDS: carvedilol 3.125 mg Tablet PO ×2 (11:10→17:30)
--- NOTE | 2019-10-21 11:35 | PC.OT ---
OT EVALUATIONS ATTEMPTED EVERYDAY THIS WEEK. PATIENT IS UNABLE TO ACTIVELY PARTICIPATE IN EVALUATIONS. SPOKE WITH NURSE, ADAM, THIS A.M. DISCHARGE OT ORDERS UNTIL PATIENT ABLE TO ACTIVELY PARTICIPATE.
[2019-10-21 11:39] LABS: Glucose Point of Care 106 mg/dL (70-110)
[2019-10-21] MEDS: venlafaxine ER (24HR) 150 mg Capsule PO (12:39)
--- NOTE | 2019-10-21 13:07 | XR_ITS ---
WS: [id number] PORTABLE CHEST HISTORY: PICC line and central line placement. COMPARISON: Study earlier the same day. RIGHT central line with tip in the distal SVC. Right-sided PICC line is present with tip overlying th e RIGHT atrium. Retracting the PICC line 2 to 3 cm would be more optimal. Patient is significantly rotated to the LEFT. Endotracheal tube and nasogastric tubes remain in good position. Prior CABG. Continued mild pulmonary edema with mild progression since the prior study. Cardiac size: Cardiac silhouette is difficult to assess with this amount of rotation. Mediastinum/Aorta: Poorly visualized due to rotation. No osseous abnormality seen. XR/XR chest 1V portable [id number] IMPRESSION: 1. RIGHT central line in good position with tip in the distal SVC. 2. RIGHT PICC line with tip overlying the RIGHT heart. Recommend retracting 2 to 3 cm for more optimal positioning. 3. Mild pulmonary edema. 4. Nasogastric and endotracheal tubes in good position.
[2019-10-21] MEDS: midazolam 1 mg/mL INJ 2 mL IVP ×2 (14:22→18:47)
[2019-10-21] MEDS: dexmedetomidine 400 MCG in sodium chloride 0.9% (100 ml) 100 ML 6 MCG IV (14:59)
--- NOTE | 2019-10-21 16:32 | PC.SLP ---
Patient remains on a ventilator and receiving significant sedation. Patient also remains medically unstable. Will continue to monitor and assess the patient as she is able to participate.
--- NOTE | 2019-10-21 16:39 | PM.PN ---
Subjective Subjective: Interval history: Patient continues to be intubated on vent. Blood pressure has normalized. Creatinine has worsened Vitals/I&O/Wt Last Vital Signs Temp 98 F 10/21/19 10:00 Pulse 83 10/21/19 12:30 Resp 36 H 10/21/19 15:01 BP 148/110 10/21/19 12:30 Pulse Ox 95 10/21/19 12:39 10/21/19 10/21/19 10/21/19 06:59 14:59 22:59 Intake Total 748.233 / 2195.186 593.937 / 593.937 Output Total 195 / 1365 Balance 553.233 / 830.186 593.937 / 593.937 Physical Exam Narrative: EXAM NARRATIVE: GENERAL: Patient is intubated and sedated NECK: No jugular vein distension. HEENT: No cyanosis. No icterus. No pallor. HEART: Regular S1 and S2. No murmur, rub or gallop. LUNGS: bilaterally. ABDOMEN: Mildly distended, faint bowel sounds sounds. No guarding, rebound or tenderness. CENTRAL NERVOUS SYSTEM: Cannot assess Urinary Catheter Management^: Mccabe: Cath Placed During This Visit: yes Reason for Continuing Indwelling Catheter: Accurate Measurement of Urinary Output in Critically Ill Patients Urinary Catheter Date of Insertion: 10/17/19 Urinary Catheter Time of Insertion: 08:12 Data : 10/21/19 04:00 10/21/19 04:00 Micro: Microbiology 10/20/19 10:24 Blood Culture - Preliminary Blood NEGATIVE TO DATE 10/20/19 10:25 Blood Culture - Preliminary Blood NEGATIVE TO DATE 10/20/19 08:45 Gram Stain - Final Sputum - Endotracheal Tube Aspirate Sputum Culture - Preliminary Gram Negative Rods A&P Assessment and plan (1) Status post aortic valve replacement with bioprosthetic valve: Appear to be stable from a valvular perspective. Echocardiogram did not show good images therefore cannot assess aortic valve, if indicated we will proceed with transesophageal echo Status: Acute (2) CVA (cerebral vascular accident): As per neurology continue to monitor. Status: Acute Qualifiers: CVA mechanism: other Qualified Code(s): I63.89 - Other cerebral infarction (3) HTN (hypertension): Blood pressure is better under control, due to bradycardia Coreg was reduced and losartan is on hold due to worsening of creatinine Status: Acute Qualifiers: Hypertension type: essential hypertension Qualified Code(s): I10 - Essential (primary) hypertension (4) Chronic obstructive pulmonary disease, unspecified: As per medicine Status: Acute (5) Thrombocytopenia: Continue to monitor Status: Acute (6) Acute renal failure (ARF): Hold Lasix for now. Losartan is also on hold. Continue hydralazine. Status: Acute Attestations Medical Necessity Statement*: Patient require continuation hospitalization for above defined care. Coding Level of Care Code Established Pt Acute Behavioral Intervention Specialist for g Fwd Patient Type Established History Expanded Problem Focused Exam Expanded Problem Focused Medical Decision Making Moderate Complexity Diagnoses Status post aortic valve replacement with bioprosthetic valve Z95.3 CVA (cerebral vascular accident) I63.89 CVA mechanism: other HTN (hypertension) I10 Hypertension type: essential hypertension Chronic obstructive pulmonary disease, unspecified J44.9 Thrombocytopenia D69.6 Acute renal failure (ARF) N17.9
[2019-10-21 16:57] LABS: Glucose Point of Care 125 mg/dL (70-110)
--- NOTE | 2019-10-21 18:42 | ECG_ITS ---
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 Measurements Intervals [place] Rate: 86 P: 62 IL: 175 QRS: 67 QRSD: 89 T: 196 QT: 377 QTc: 451 Interpretive Statements SINUS RHYTHM WITH OCCASIONAL SUPRAVENTRICULAR PREMATURE COMPLEXES ST DEVIATION AND MODERATE T-WAVE ABNORMALITY, CONSIDER LATERAL ISCHEMIA [-0.1+ mV T WAVE IN I/aVL/V5/V6] ST DEVIATION AND MODERATE T-WAVE ABNORMALITY, CONSIDER INFERIOR ISCHEMIA [-0.1+ mV T WAVE IN II/aVF] Compared to ECG 10/18/2019 05:41:57 Sinus arrhythmia no longer present T-wave abnormality still present Possible ischemia still present Electronically Signed On 10-21-2019 21:51:49 CDT by Brent Deluca M.D. [id number]
[2019-10-21] MEDS: propofol 1,000 MG/100 ML INJ 9.3 MG IV (18:52)
--- NOTE | 2019-10-21 20:00 | PC.NURSE ---
Shift summary: b/P meds changed today to reduce chance of bradycardic episodes again> She has had pink mccabe secretions in ETT. PiCC placement in right basilic vein. Right central line removed. Propofol held during that process until PiCC placement verified. Pt became tachypneic again and thrashing around in the bed, movements did not appear purposeful. Switched sedate to Precedex in hopes of leveling out B/P ( B/P would become elevated after stopping the Propofol for vent weaning trails). She was settled while precedex started and propofol being weaning off. Then at nearing shift change, she thrashed around and became tachypneic again. Dr Munguia notified. Versed 1 mg admin, then EKG ordered, ( due to Precedex and beta blockers), Propofol restarted . Precedex decreased. Morenita Wilkins received report.
[2019-10-21 20:43] LABS: Glucose Point of Care 123 mg/dL (70-110)
[2019-10-21] MEDS: sodium chloride 0.9% 1,000 ML 30 ML IV (21:32)
[2019-10-21] MEDS: atorvastatin 40 mg Tablet PO (21:32)
--- NOTE | 2019-10-21 21:49 | XRR_ITS ---
PROCEDURE INFORMATION: Exam: XR Chest, 1 View Exam date and time: 10/21/2019 9:50 PM Age: 74 years old Clinical indication: Device placement; Ng tube; Prior surgery; Surgery date: 3-7 days post-operative; Surgery type: Avr; Additional info: Evaluate og tube placement TECHNIQUE: Imaging protocol: XR of the chest Views: 1 view. COMPARISON: CR XR chest 1V portable [id number] 10/21/2019 1:30 PM FINDINGS: Tubes, catheters and devices: Endotracheal tube in satisfactory position tip above the malaika. Nasogastric tube tip below the diaphragm out of the field of view. Lungs: No visible active interstitial or alveolar airspace disease. Pleural space: Potential bilateral small pleural effusions, right more than left. No pneumothorax. Heart/Mediastinum: Status post sternotomy chest. Cardiomegaly. Bones/joints: Age-appropriate degenerative disease. XR/XR chest 1V portable [id number] IMPRESSION: 1. Endotracheal tube in satisfactory position tip above the malaika. 2. Nasogastric tube tip below the diaphragm out of the field of view.
--- NOTE | 2019-10-21 22:00 | PC.NURSE ---
OG tube Checking residuals and giving OG meds resistance met when aspirating and flushing. No air auscultated to abd, hard to push air OG tube was removed at this time and was clogged with medication granules. [place] sump 18 nigerien OG placed at this time, verified placement with aspiration and auscultation. Chest xray orders placed to verify proper placement.
[2019-10-21 23:04] LABS: Vancomycin Trough 16.4 ug/mL (10-15)
[2019-10-22] VITALS (49 sets, daily range): BP systolic 104–158; BP diastolic 43–95; PULSE 56–86; RESP 14–30; TEMP 36.5–37.2; O2SAT 88–100
[2019-10-22] MEDS: propofol 1,000 MG/100 ML INJ 13.9 MG IV (02:39)
[2019-10-22 05:34] LABS: Basophils % 0.2 %; Eosinophils # 0.2 10^3/uL (0.0-0.8); Eosinophils % 2.9 %; Hematocrit 26.8 % (37.0-47.0); Hemoglobin 8.1 g/dL (11.5-15.3); Lymphocytes # 0.7 10^3/uL (0.8-4.8); Lymphocytes % 8.6 %; Mean Corpuscular HGB Conc 30.2 g/dL (30.0-36.0); Mean Corpuscular Hemoglobin 29.9 pg (28.0-34.0); Mean Corpuscular Volume 98.9 fL (81-99); Monocytes # 0.8 10^3/uL (0.2-0.9); Monocytes % 10.3 %; Neutrophils # 6.2 10^3/uL (1.8-7.7); Neutrophils % 77.5 %; Nucleated Red Blood Cells % 0 %; Platelet Count 68 10^3/cmm (130-400); Red Blood Count 2.71 10^6/uL (4.1-5.3); Red Cell Distribution Width 14.6 % (12.1-15.1)
[2019-10-22 06:12] LABS: INR 1.12 (0.8-1.2)
[2019-10-22 06:16] LABS: Alanine Aminotransferase 26 U/L (0-33); Albumin Level 2.3 g/dL (3.5-5.2); Alkaline Phosphatase 206 IU/L (35-105); Anion Gap 18.1 (5-19); Aspartate Amino Transferase 63 U/L (0-32); Blood Urea Nitrogen 44 mg/dL (8-23); Carbon Dioxide 18 mmol/L (22-29); Chloride 107 mmol/L (98-107); Creatinine Clr Calc Pharmacy 26.3161; Globulin 1.7 g/dL (1.3-4.6); Glucose 113 mg/dL (65-115); Osmolality Calculated 285 mOsm/kg (285-295); Potassium 5.1 mmol/L (3.5-5.1); Sodium 138 mmol/L (136-145); Total Bilirubin 0.8 mg/dL (0.15-1.2)
--- NOTE | 2019-10-22 08:18 | PM.PN ---
Subjective Subjective: Interval history: This patient is 74 years old and was admitted approximately 6 days ago for elective aortic valve replacement which she underwent on the . The day after surgery she was found to have a left middle cerebral artery distribution stroke. Neurology was consulted. CT scans did not show a large area of involvement and it is thought that she has been improving somewhat over time. Today 6 days later she is still intubated and on propofol. Apparently when the propofol is weaned she becomes somewhat agitated and the blood pressure increases. She is thought to be able to move both sides when she is less sedated. She is being given tube feedings. She has been doing relatively well from a cardiac standpoint. Her platelet count has dropped to 68,000, she is anemic and today her creatinine is 1.9 where previously it had been normal. She is obviously unable to give a history and is still intubated on ventilator. Medications: Reviewed: Yes Vitals/I&O/Wt Last Vital Signs Temp 97.7 F 10/22/19 06:00 Pulse 69 10/22/19 06:00 Resp 17 10/22/19 08:04 BP 122/48 10/22/19 06:00 Pulse Ox 100 10/22/19 06:00 10/21/19 10/22/19 10/22/19 22:59 06:59 14:59 Intake Total 1242.825 / 1836.762 366.92 / 2203.682 Output Total 410 / 410 166 / 576 Balance 832.825 / 1426.762 200.92 / 1627.682 Physical Exam Narrative: EXAM NARRATIVE: GENERAL: In general she is intubated and sedated HEENT: Exam within normal limits. NECK: Supple without jugular vein distention. The carotid upstroke is normal without bruits. BACK: Exam normal. LUNGS: Clear. HEART: Regular rate and rhythm. ABDOMEN: Benign without organomegaly or tenderness. EXTREMITIES: No edema. NEUROLOGIC: Exam not done SKIN: Unremarkable. Urinary Catheter Management^: Mccabe: Cath Placed During This Visit: yes Reason for Continuing Indwelling Catheter: Accurate Measurement of Urinary Output in Critically Ill Patients Urinary Catheter Date of Insertion: 10/17/19 Urinary Catheter Time of Insertion: 08:12 Data : 10/22/19 04:34 10/22/19 04:34 Micro: Microbiology 06/25/20 10:24 Blood Culture - Preliminary Blood NEGATIVE TO DATE 10/20/19 10:25 Blood Culture - Preliminary Blood NEGATIVE TO DATE 10/20/19 08:45 Gram Stain - Final Sputum - Endotracheal Tube Aspirate Sputum Culture - Preliminary Gram Negative Rods A&P Assessment and plan (1) Acute renal failure (ARF): Status: Acute (2) Thrombocytopenia: Status: Acute (3) Left acute arterial ischemic stroke, MCA (middle cerebral artery): Status: Acute (4) Bipolar affective disorder: Status: Acute (5) Sleep apnea: Status: Acute (6) Chronic obstructive pulmonary disease, unspecified: Status: Acute (7) Status post aortic valve replacement with bioprosthetic valve: Status: Acute (8) HTN (hypertension): Status: Acute Qualifiers: Hypertension type: essential hypertension Qualified Code(s): I10 - Essential (primary) hypertension Additional A&P Information There is no obvious answer for the thrombocytopenia. Her platelet count was 216,000 on the 17th of this month. Hemoglobin and hematocrit were 13.3 and 41.2 on the same date. Plans are to try to wean the propofol to see where we are neurologically. Attestations Medical Necessity Statement*: Not applicable Coding Level of Care Code Established Pt Acute Maintenance Trainer for [facility] Patient Type Established History Comprehensive Exam Comprehensive Medical Decision Making High Complexity Diagnoses Acute renal failure (ARF) N17.9 Thrombocytopenia D69.6 Left acute arterial ischemic stroke, MCA (middle cerebral artery) I63.512 Bipolar affective disorder F31.9 Sleep apnea G47.30 Chronic obstructive pulmonary disease, unspecified J44.9 Status post aortic valve replacement with bioprosthetic valve Z95.3 HTN (hypertension) I10 Hypertension type: essential hypertension
[2019-10-22] MEDS: carvedilol 3.125 mg Tablet PO ×2 (09:26→18:06)
[2019-10-22] MEDS: gabapentin 100 mg Capsule PO (09:26)
[2019-10-22] MEDS: aspirin 81 mg Chew Tablet PO (09:26)
[2019-10-22] MEDS: cefepime 1,000 MG in sodium chloride 0.9% (plus) 50 ML 100 MG IV (09:26)
[2019-10-22] MEDS: pantoprazole 40 mg SDV IVP (09:26)
[2019-10-22] MEDS: venlafaxine ER (24HR) 150 mg Capsule PO (09:26)
--- NOTE | 2019-10-22 09:40 | PC.NURSE ---
Sedation is off pt. Breathing 40 times per min, excessive movement. Dr. Wallace made aware. She does not respond to painful stimuli
--- NOTE | 2019-10-22 09:56 | PC.NURSE ---
Dr Wallace on the floor and assessed pt. Does not respond to painful stimuli or do anything purposeful. states to restart sedation and plan is to do supportive care through the weekend then reevaluate on Thursday with the assistance of Dr. Jin
[2019-10-22] MEDS: linezolid premix 600 MG/300 ML PREMIX 300 MG IV ×2 (10:55→20:12)
[2019-10-22] MEDS: dexmedetomidine 400 MCG in sodium chloride 0.9% (100 ml) 100 ML 6 MCG IV (11:03)
[2019-10-22] MEDS: propofol 1,000 MG/100 ML INJ 2.3 MG IV (11:24)
--- NOTE | 2019-10-22 11:38 | PM.PN ---
Subjective Subjective: Interval history: Patient was sedated on the ventilator when I arrived. Gaze seemed close to midline. Sedation was lessened and she spontaneously moved all of her extremities. Gaze did seem to deviate more up and left. She did not have purposeful movement. No seizure activity. Medications: Reviewed: Yes Vitals/I&O/Wt Last Vital Signs Temp 97.7 F 10/22/19 06:00 Pulse 75 10/22/19 10:30 Resp 20 H 10/22/19 11:08 BP 146/77 10/22/19 10:30 Pulse Ox 96 10/22/19 10:30 10/21/19 10/22/19 10/22/19 22:59 06:59 14:59 Intake Total 1242.825 / 1836.762 366.92 / 2203.682 84.695 / 84.695 Output Total 410 / 410 166 / 576 45 / 45 Balance 832.825 / 1426.762 200.92 / 1627.682 39.695 / 39.695 Physical Exam Narrative: EXAM NARRATIVE: See notations above in subjective on general exam as well. Endotracheal tube noted Cardiovascular regular rate and rhythm without murmur Lungs clear no wheezing or crackles Abdomen is soft, positive bowel sounds Extremities no cyanosis clubbing Neuro: Moves all 4 extremities. Gaze up and leftward. Urinary Catheter Management^: Mccabe: Cath Placed During This Visit: yes Reason for Continuing Indwelling Catheter: Accurate Measurement of Urinary Output in Critically Ill Patients Urinary Catheter Date of Insertion: 10/17/19 Urinary Catheter Time of Insertion: 08:12 Data : 10/22/19 04:34 10/22/19 04:34 Micro: Microbiology 10/20/19 08:45 Gram Stain - Final Sputum - Endotracheal Tube Aspirate Sputum Culture - Preliminary Serratia marcescens 10/20/19 10:24 Blood Culture - Preliminary Blood NEGATIVE TO DATE 10/20/19 10:25 Blood Culture - Preliminary Blood NEGATIVE TO DATE A&P Assessment and plan (1) Status post aortic valve replacement with bioprosthetic valve: Postop day #5 aortic valve replacement with bioprosthetic valve performed by Dr. Luciano Remained intubated secondary to concerns with mental status Weaned to prevent today. Placed on Precedex. Monitor for any rhythm issues or blood pressure issues. Status: Acute (2) Chronic obstructive pulmonary disease, unspecified: Concern of ventilator associated pneumonia during this hospital stay with fever. She was placed on Levaquin, cefepime and vancomycin. Sputum culture gram-negative racquel, results pending No evidence of COPD exacerbation Status: Acute (3) Bipolar affective disorder: Continue home medications Status: Acute (4) HTN (hypertension): Hold Norvasc. Blood pressures lower than goal status post CVA Continue hydralazine as tolerated by blood pressure Continue carvedilol Losartan discontinued secondary to renal function Status: Acute Qualifiers: Hypertension type: essential hypertension Qualified Code(s): I10 - Essential (primary) hypertension Additional A&P Information Acute left MCA CVA, noted following aortic valve replacement. Previously done documented no carotid artery stenosis. Goal blood pressure is 140, to 150 neurology has been consulted. Anemia, hemoglobin has drifted down to 8.1. No active bleeding noted. Thrombocytopenia. This appears stable. This is been noted following surgery. Acute on chronic renal failure. Increase fluids slightly. Continue Mccabe. GI prophylaxis, Protonix Tube feeding diet Full code SCDs for DVT prophylaxis secondary to significant anemia and thrombocytopenia Family informed regarding current clinical status. Attestations Medical Necessity Statement*: Needs continued hospital stay for respiratory support status post acute CVA Critical Care Time: 32 minutes spent at bedside reviewing patient, discussing with subspecialists, discussing with family, patient's critical condition status post CVA and aortic valve replacement. Changing blood pressure medicines to try to improve clinical outcome in this critically ill case. 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
--- NOTE | 2019-10-22 15:44 | PM.EVENT ---
Event Note Event Note: Attempted to change patient to Precedex as was attempted last night. She becomes agitated with weaning the propofol. Peak pressures are elevated and ectopy is noted. Change back to propofol. We will try to keep propofol at minimum dose to monitor neurologic status.
--- NOTE | 2019-10-22 16:24 | ECG_ITS ---
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 Measurements Intervals [place] Rate: 73 P: 75 W[place]: 189 QRS: 74 QRSD: 95 T: 194 QT: 404 QTc: 446 Interpretive Statements SINUS RHYTHM WITH OCCASIONAL SUPRAVENTRICULAR PREMATURE COMPLEXES ST DEVIATION AND MODERATE T-WAVE ABNORMALITY, CONSIDER LATERAL ISCHEMIA [-0.1+ mV T WAVE IN I/aVL/V5/V6] Left bundle branch block Compared to ECG 10/21/2019 18:49:41 No significant changes Electronically Signed On 10-23-2019 15:14:58 CDT by Beltran Yeboah M.D. [id number]
--- NOTE | 2019-10-22 16:25 | PC.NURSE ---
frequent PVC. New orders for EKG
[2019-10-22 17:21] LABS: Glucose Point of Care 155 mg/dL (70-110)
[2019-10-22 17:21] LABS: Glucose Point of Care 116 mg/dL (70-110)
[2019-10-22] MEDS: chlorhexidine gluconate 0.12% Btl 473 mL 15 ML MUCOUS MEM (18:06)
[2019-10-22] MEDS: atorvastatin 40 mg Tablet PO (20:12)
[2019-10-22] MEDS: sodium chloride 0.9% 1,000 ML 30 ML IV (20:12)
[2019-10-22] MEDS: propofol 1,000 MG/100 ML INJ 11.6 MG IV (20:16)
[2019-10-22 23:12] LABS: Glucose Point of Care 111 mg/dL (70-110)
[2019-10-23] VITALS (35 sets, daily range): BP systolic 120–153; BP diastolic 49–65; PULSE 52–74; RESP 12–18; TEMP 36.7–37.4; O2SAT 94–100
--- NOTE | 2019-10-23 02:20 | PC.NURSE ---
patient has had multiple epidoses of PVC's with widened qrs complex at times. heartrate has been 50' to 70's this sift. bp has been 120' systolic. hydralazine held as to not drop bp. patients neck has noted edema and small blister is noted on left side. still on vent support. patients face is bright red and warm to touch. turned q 2 hours for skin protection and comfort.. patient neuro are declined, pupil are 2 and gaze to left, patient does not respond to painful stimuli at this time. pt. does move all 4 extremities.
[2019-10-23 04:01] LABS: Basophils % 0.3 %; Eosinophils # 0.2 10^3/uL (0.0-0.8); Hematocrit 27.4 % (37.0-47.0); Hemoglobin 8.4 g/dL (11.5-15.3); Lymphocytes # 0.8 10^3/uL (0.8-4.8); Lymphocytes % 10.2 %; Mean Corpuscular HGB Conc 30.7 g/dL (30.0-36.0); Mean Corpuscular Hemoglobin 29.8 pg (28.0-34.0); Mean Corpuscular Volume 97.2 fL (81-99); Mean Platelet Volume 11.9 fL (7.4-10.4); Monocytes % 12.8 %; Neutrophils # 5.6 10^3/uL (1.8-7.7); Neutrophils % 72.7 %; Nucleated Red Blood Cells % 0 %; Platelet Count 77 10^3/cmm (130-400); Red Blood Count 2.82 10^6/uL (4.1-5.3); Red Cell Distribution Width 14.6 % (12.1-15.1); White Blood Count 7.7 10^3/uL (4.0-10.0)
[2019-10-23 04:22] LABS: Alanine Aminotransferase 41 U/L (0-33); Albumin Level 2.4 g/dL (3.5-5.2); Alkaline Phosphatase 276 IU/L (35-105); Anion Gap 17.3 (5-19); Aspartate Amino Transferase 104 U/L (0-32); Blood Urea Nitrogen 46 mg/dL (8-23); Calcium 7.6 mg/dL (8.5-10.5); Carbon Dioxide 19 mmol/L (22-29); Chloride 107 mmol/L (98-107); Creatinine Clr Calc Pharmacy 29.4121; Globulin 2.9 g/dL (1.3-4.6); Glucose 96 mg/dL (65-115); Osmolality Calculated 286 mOsm/kg (285-295); Potassium 4.3 mmol/L (3.5-5.1); Sodium 139 mmol/L (136-145); Total Bilirubin 0.8 mg/dL (0.15-1.2); Total Protein 5.3 g/dL (6.6-8.7)
[2019-10-23 04:24] LABS: Ammonia 23 umol/L (11-51)
[2019-10-23] MEDS: propofol 1,000 MG/100 ML INJ 11.6 MG IV (05:50)
--- NOTE | 2019-10-23 06:52 | PM.PN ---
Subjective Subjective: Interval history: Patient is basically unchanged. An attempt was made to wean the propofol yesterday which was unsuccessful. She is back on the drug. Otherwise she is on tube feeds. Neurologically she has not changed. Hemoglobin remains stable. Creatinine is stable. Today 1.7. Transaminases have begun to go up slightly. Medications: Reviewed: Yes Vitals/I&O/Wt Last Vital Signs Temp 98.1 F 10/23/19 04:00 Pulse 52 L 10/23/19 06:00 Resp 12 10/23/19 05:57 BP 147/59 10/23/19 06:00 Pulse Ox 97 10/23/19 05:00 10/22/19 10/22/19 10/23/19 14:59 22:59 06:59 Intake Total 384.695 / 384.695 790.393 / 8198.799 5449 / 5380.088 Output Total 170 / 170 225 / 395 100 / 495 Balance 214.695 / 214.695 565.393 / 962.100 1491 / 4885.088 Physical Exam Narrative: EXAM NARRATIVE: GENERAL: In general sedated and intubated HEENT: Exam within normal limits. NECK: Supple without jugular vein distention. The carotid upstroke is normal without bruits. BACK: Exam normal. LUNGS: Clear. HEART: Regular rate and rhythm. ABDOMEN: Benign without organomegaly or tenderness. EXTREMITIES: No edema. NEUROLOGIC: Exam not performed SKIN: Unremarkable. Urinary Catheter Management^: Mccabe: Cath Placed During This Visit: yes Reason for Continuing Indwelling Catheter: Accurate Measurement of Urinary Output in Critically Ill Patients Urinary Catheter Date of Insertion: 10/17/19 Urinary Catheter Time of Insertion: 08:12 Data : 10/23/19 03:17 10/23/19 03:17 Micro: Microbiology 10/20/19 08:45 Gram Stain - Final Sputum - Endotracheal Tube Aspirate Sputum Culture - Preliminary Serratia marcescens A&P Assessment and plan (1) Acute renal failure (ARF): Status: Acute (2) Thrombocytopenia: Status: Acute (3) Left acute arterial ischemic stroke, MCA (middle cerebral artery): Status: Acute (4) Bipolar affective disorder: Status: Acute (5) Sleep apnea: Status: Acute (6) Chronic obstructive pulmonary disease, unspecified: Status: Acute (7) Status post aortic valve replacement with bioprosthetic valve: Status: Acute (8) Shortness of breath: Status: Acute (9) HTN (hypertension): Status: Acute Qualifiers: Hypertension type: essential hypertension Qualified Code(s): I10 - Essential (primary) hypertension (10) Transaminitis: Status: Acute Additional A&P Information Continue to follow. No changes today. 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
--- NOTE | 2019-10-23 07:00 | XRR_ITS ---
PROCEDURE INFORMATION: Exam: XR Chest, 1 View Exam date and time: 10/23/2019 6:06 AM Age: 74 years old Clinical indication: Shortness of breath; Additional info: Respiratory failure TECHNIQUE: Imaging protocol: XR of the chest Views: Frontal portable supine view of the chest. COMPARISON: CR XR chest 1V portable [id number] 10/21/2019 10:00 PM FINDINGS: Tubes, catheters and devices: The endotracheal tube tip is approximately 2.3 cm above the malaika. EKG leads are present overlying the chest. The right upper extremity PICC line tip is in the mid SVC. The feeding tube enters the stomach with the tip off the limits of the image. Lungs: The pulmonary vasculature is more congested and ill-defined. Interval increase in airspace opacities bilaterally in the central and mid to lower lung zones. Increased bibasilar partial atelectasis. Pleural space: Possible small bilateral pleural effusions. No pneumothorax. Heart/Mediastinum: Stable mild cardiomegaly. Bones/joints: The patient is status post median sternotomy with intact sternal cerclage wires. Other findings: Mediastinum: Stable. XR/XR chest 1V portable [id number] IMPRESSION: 1. Increased pulmonary vascular congestion. 2. Increased bilateral alveolar pulmonary edema. 3. Increased bibasilar partial atelectasis.
[2019-10-23 07:53] LABS: Glucose Point of Care 92 mg/dL (70-110)
[2019-10-23 08:09] LABS: Hepatitis A Antibody IgM Non-Reactive (Nonreactive); Hepatitis B Core IgM Non-Reactive (Nonreactive); Hepatitis B Surface Antigen Non-Reactive (Nonreactive); Hepatitis C Virus Antibody Non-Reactive (Nonreactive)
[2019-10-23 09:52] LABS: ABG PCO2 34.3 mmHg (35-45); ABG PH Result 7.36 (7.35-7.45); Arterial Blood Gas Hematocrit 28.3 % (37-47); Base Excess ABG -5.3 mmol/L (-2.0-2.0); Blood Gas Allen Test Pos; Blood Gas Sample Site Radial, right; Blood Gas Sample Type Arterial; Blood Gas Tidal Volume 0.4; HCO3 ABG 19.5 mmol/L (22-26); Oxygen Device VENT; PO2 ABG 90.8 mmHg (80.0-100.0)
[2019-10-23] MEDS: gabapentin 100 mg Capsule PO (10:16)
[2019-10-23] MEDS: pantoprazole 40 mg SDV IVP (10:17)
[2019-10-23] MEDS: hyDRALAzine 25 mg Tablet PO ×3 (10:17→20:23)
[2019-10-23] MEDS: carvedilol 3.125 mg Tablet PO ×2 (10:17→17:05)
[2019-10-23] MEDS: venlafaxine ER (24HR) 150 mg Capsule PO (10:17)
[2019-10-23] MEDS: aspirin 81 mg Chew Tablet PO (10:17)
[2019-10-23] MEDS: levofloxacin-dextrose 5 % 750 MG/150 ML PREMIX 100 MG IV (10:18)
[2019-10-23] MEDS: chlorhexidine gluconate 0.12% Btl 473 mL 15 ML MUCOUS MEM ×2 (10:33→17:05)
[2019-10-23] MEDS: FUROsemide 10 mg/mL SDV 4mL 40 MG IVP (10:33)
[2019-10-23] MEDS: linezolid premix 600 MG/300 ML PREMIX 300 MG IV (10:40)
[2019-10-23] MEDS: cefepime 1,000 MG in sodium chloride 0.9% (plus) 50 ML 100 MG IV (10:40)
[2019-10-23 11:39] LABS: Glucose Point of Care 111 mg/dL (70-110)
--- NOTE | 2019-10-23 11:41 | P.PN_ITS ---
Subjective Subjective: Interval history: Sedated on ventilator. Nurse reports when sedation was lessened, she became responsive, moves all 4 extremities, would not follow directions but eyes were at midline. Respiratory weight went up significantly and sedation was increased. Medications: Reviewed: Yes Vitals/I&O/Wt Last Vital Signs Temp 98.1 F 10/23/19 04:00 Pulse 62 10/23/19 09:00 Resp 16 10/23/19 11:06 BP 151/57 10/23/19 09:00 Pulse Ox 100 10/23/19 09:00 10/22/19 10/23/19 10/23/19 22:59 06:59 14:59 Intake Total 1090.393 / 8338.498 6316 / 5730.088 0 / 0 Output Total 225 / 395 100 / 495 35 / 35 Balance 865.393 / 2726.930 7372 / 5235.088 -35 / -35 Physical Exam Narrative: EXAM NARRATIVE: General exam no apparent distress, sedated when I saw her Neurologic: Moves spontaneously, eyes at midline Cardiovascular regular rate and rhythm without murmur Lungs clear Abdomen is soft, positive bowel sounds Extremities no cyanosis clubbing or edema Urinary Catheter Management^: Mccabe: Cath Placed During This Visit: yes Reason for Continuing Indwelling Catheter: Accurate Measurement of Urinary Output in Critically Ill Patients Urinary Catheter Date of Insertion: 10/17/19 Urinary Catheter Time of Insertion: 08:12 Data : 10/23/19 03:17 10/23/19 03:17 Micro: Microbiology 10/20/19 08:45 Gram Stain - Final Sputum - Endotracheal Tube Aspirate Sputum Culture - Final Serratia marcescens Other data: Chest x-ray reviewed and demonstrates some pulmonary edema A&P Assessment and plan (1) Status post aortic valve replacement with bioprosthetic valve: Postop day #6 aortic valve replacement with bioprosthetic valve performed by Dr. Luciano Remains intubated secondary to concerns with mental status Try to replace propofol with Precedex but significant intraventricular conduction delay on beats occurred. Now back on propofol alone Some pulmonary edema today. Will reduce fluids, Lasix 40 mg IV x1. Ins and outs inaccurate over the last 24 hours. Nursing is reviewing. Status: Acute (2) Chronic obstructive pulmonary disease, unspecified: Concern of ventilator associated pneumonia during this hospital stay with fever. She was placed on Levaquin, cefepime and vancomycin. Sputum culture has grown Serratia. MRSA PCR pending. No evidence of COPD exacerbation At this time will discontinue cefepime. Consider discontinuing vancomycin if PCR is negative for MRSA Status: Acute (3) Bipolar affective disorder: Continue home medications Status: Acute (4) HTN (hypertension): Norvasc discontinued. Blood pressures controlled currently. Continue hydralazine as tolerated by blood pressure Continue carvedilol Losartan discontinued secondary to renal function Status: Acute Qualifiers: Hypertension type: essential hypertension Qualified Code(s): I10 - Essential (primary) hypertension Additional A&P Information Acute left MCA CVA, noted following aortic valve replacement. Previously done documented no carotid artery stenosis. Goal blood pressure is 140, to 150 neurology has been consulted. Continue aspirin. Continue statin. Anemia, hemoglobin has drifted down to 8.1. No active bleeding noted. This appears stable today. Aspirin can be added. Thrombocytopenia. This appears to be improving. Okay to restart Lovenox, lower dose Acute on chronic renal failure. I creatinine improved. Continue Mccabe. Transaminitis. Ammonia level normal. If this worsens consider hepatic imaging by ultrasound tomorrow. GI prophylaxis, Protonix Tube feeding diet Full code Reinitiate Lovenox for DVT prophylaxis, lower dose Family informed regarding current clinical status. Attestations Medical Necessity Statement*: Needs continued hospital stay secondary to acute CVA, respiratory failure requiring mechanical ventilation. Critical Care Time: 33 minutes spent in critical care time at bedside examin ing the patient, reviewing laboratory discussing with nursing staff and subspecialists this patient with severely guarded prognosis. Multiorgan dysfunction following aortic valve replacement associated with CVA and respiratory failure. Coding Level of Care Code Acute Narcotics Investigator for Chg Fwd Diagnoses Status post aortic valve replacement with bioprosthetic valve Z95.3 Chronic obstructive pulmonary disease, unspecified J44.9 Bipolar affective disorder F31.9 HTN (hypertension) I10 Hypertension type: essential hypertension
[2019-10-23] MEDS: enoxaparin 30 mg/0.3 mL Syringe SUBCUT (14:28)
[2019-10-23] MEDS: sodium chloride 0.9% 1,000 ML 30 ML IV (17:05)
[2019-10-23 17:31] LABS: Glucose Point of Care 97 mg/dL (70-110)
--- NOTE | 2019-10-23 19:26 | PC.NURSE ---
patient currently on vent support moving all extrmities. is still not following commands, although when name called head sometimes turns. lungs are coarse bilateral secretions are thick and copius. mccabe in color. chin is still edematous although face is not as red.abdomen large round and bs x 4 quads. tube feeding at 35ml/ hr infusing.
[2019-10-23] MEDS: atorvastatin 40 mg Tablet PO (20:23)
[2019-10-24] VITALS (35 sets, daily range): BP systolic 139–178; BP diastolic 54–84; PULSE 58–80; RESP 12–38; TEMP 36.4–37.2; O2SAT 96–100
[2019-10-24] MEDS: propofol 1,000 MG/100 ML INJ 11.6 MG IV ×2 (01:32→11:33)
[2019-10-24 05:54] LABS: ABG PCO2 34.3 mmHg (35-45); Arterial Blood Gas Hematocrit 29.9 % (37-47); Base Excess ABG -3.2 mmol/L (-2.0-2.0); Blood Gas Allen Test Pos; Blood Gas Sample Site Radial, right; Blood Gas Sample Type Arterial; Blood Gas Tidal Volume 0.4; HCO3 ABG 21.1 mmol/L (22-26); Oxygen Device VENT; PO2 ABG 85.6 mmHg (80.0-100.0)
[2019-10-24 05:58] LABS: Alanine Aminotransferase 70 U/L (0-33); Albumin Level 2.2 g/dL (3.5-5.2); Alkaline Phosphatase 236 IU/L (35-105); Anion Gap 16.2 (5-19); Aspartate Amino Transferase 143 U/L (0-32); Blood Urea Nitrogen 43 mg/dL (8-23); Calcium 7.9 mg/dL (8.5-10.5); Carbon Dioxide 17 mmol/L (22-29); Chloride 108 mmol/L (98-107); Globulin 2.9 g/dL (1.3-4.6); Glucose 87 mg/dL (65-115); Osmolality Calculated 281 mOsm/kg (285-295); Potassium 4.2 mmol/L (3.5-5.1); Sodium 137 mmol/L (136-145); Total Bilirubin 0.6 mg/dL (0.15-1.2); Total Protein 5.1 g/dL (6.6-8.7)
[2019-10-24 06:30] LABS: Glucose Point of Care 97 mg/dL (70-110)
[2019-10-24 06:31] LABS: Glucose Point of Care 112 mg/dL (70-110)
--- NOTE | 2019-10-24 07:00 | XR_ITS ---
WS: [id number] CHEST XRAY TECHNIQUE: Portable chest. CLINICAL INFORMATION: Follow-up respiratory failure COMPARISON: October 23, 2019 FINDINGS: Endotracheal tube with tip above the malaika. Enteric tube with tip in the proximal stomach. Right PICC line with tip in the right atrium. Heart: Normal cardiac silhouette. Sternotomy. Lungs: Small bilateral pleural effusions with basilar atelectasis. No focal pneumonia. Bones: Normal visualized bony structures. XR/XR chest 1V portable [id number] IMPRESSION: 1. Knee endotracheal tube with tip above the malaika. Enteric tube with tip in proximal stomach. 2. Right PICC line tip in right atrium. 3. Small right greater than left pleural effusions appear stable.
[2019-10-24 07:07] LABS: Basophils # 0.1 10^3/uL (0.0-0.1); Basophils % 0.5 %; Eosinophils # 0.4 10^3/uL (0.0-0.8); Eosinophils % 3.7 %; Hematocrit 32.4 % (37.0-47.0); Hemoglobin 10.3 g/dL (11.5-15.3); Lymphocytes # 1.6 10^3/uL (0.8-4.8); Lymphocytes % 15.5 %; Mean Corpuscular HGB Conc 31.8 g/dL (30.0-36.0); Mean Corpuscular Hemoglobin 30.3 pg (28.0-34.0); Mean Corpuscular Volume 95.3 fL (81-99); Mean Platelet Volume 12.1 fL (7.4-10.4); Monocytes # 1.4 10^3/uL (0.2-0.9); Monocytes % 14.3 %; Neutrophils # 6.4 10^3/uL (1.8-7.7); Neutrophils % 63.5 %; Nucleated Red Blood Cells % 0 %; Red Cell Distribution Width 14.5 % (12.1-15.1); White Blood Count 10.1 10^3/uL (4.0-10.0)
[2019-10-24 07:36] LABS: Glucose Point of Care 80 mg/dL (70-110)
[2019-10-24 07:39] LABS: Platelet Count 67 10^3/cmm (130-400)
[2019-10-24 07:40] LABS: Slide Review Slide Review Perform
[2019-10-24] MEDS: venlafaxine ER (24HR) 150 mg Capsule PO (08:52)
[2019-10-24] MEDS: aspirin 81 mg Chew Tablet PO (08:53)
[2019-10-24] MEDS: hyDRALAzine 25 mg Tablet PO ×3 (08:53→20:44)
[2019-10-24] MEDS: gabapentin 100 mg Capsule PO (08:53)
[2019-10-24] MEDS: pantoprazole 40 mg SDV IVP (08:53)
[2019-10-24] MEDS: chlorhexidine gluconate 0.12% Btl 473 mL 15 ML MUCOUS MEM ×2 (08:54→17:59)
--- NOTE | 2019-10-24 10:17 | PM.PN ---
Subjective Subjective: Interval history: Intubated, sedated this morning. Planned for MOISE after discussion with cardiology Hb better at 1.3. Transaminitis increasing, cr 1.4, stable, WBC 10.1 , plt count 67, stable. Medications: Reviewed: Yes Vitals/I&O/Wt Last Vital Signs Temp 97.5 F L 10/24/19 08:00 Pulse 67 10/24/19 10:00 Resp 12 10/24/19 10:01 BP 178/68 10/24/19 10:00 Pulse Ox 100 10/24/19 10:00 10/23/19 10/24/19 10/24/19 22:59 06:59 14:59 Intake Total 776.5 / 876.5 4170 / 5046.5 Output Total 1500 / 1535 1850 / 3385 950 / 950 Balance -723.5 / -658.5 2320 / 1661.5 -950 / -950 Physical Exam Narrative: EXAM NARRATIVE: GEN: intubated, sedated HEENT: ETT, NG in place iwth ongoing tube feeds CVS: S1S2 N RS: CTA B/L anteriorly Abd: Soft, nt/nd , bs+ CLIENT SERVICE EXECUTIVE: unable to assess Urinary Catheter Management^: Mccabe: Cath Placed During This Visit: yes Reason for Continuing Indwelling Catheter: Accurate Measurement of Urinary Output in Critically Ill Patients Urinary Catheter Date of Insertion: 10/17/19 Urinary Catheter Time of Insertion: 08:12 Data : 10/24/19 06:45 10/24/19 05:05 Micro: Microbiology 10/22/19 14:30 MRSA Culture - Final Nose 10/20/19 08:45 Gram Stain - Final Sputum - Endotracheal Tube Aspirate Sputum Culture - Final Serratia marcescens A&P Assessment and plan (1) Status post aortic valve replacement with bioprosthetic valve: Postop day #7 aortic valve replacement with bioprosthetic valve performed by Dr. Luciano on October 17 Remains intubated secondary to concerns with mental status LFTs now trending up, may be contributed by propofol, will obtain RUQ USG today, if needed will change sedation to versed Tried to replace propofol with Precedex previosuly but significant intraventricular conduction delay on beats occurred. therefore back on propofol. Some pulmonary edema yesetrday s/p Lasix 40 mg IV x1. U/o today 2.8L, net + 746 ml Status: Acute (2) Chronic obstructive pulmonary disease, unspecified: Concern of ventilator associated pneumonia during this hospital stay with fever. She was placed on Levaquin, cefepime and vancomycin. Sputum culture has grown Serratia. No evidence of COPD exacerbation Abx day 3 today, no current lung infiltrates on CXR Status: Acute (3) Bipolar affective disorder: Continue home medications Status: Acute (4) HTN (hypertension): Norvasc discontinued previously to meet SBP goal of 140-150. Will resume 5mg if BP sustained up to 160-170 this morning. Continue hydralazine as tolerated by blood pressure Continue carvedilol Losartan discontinued secondary to renal function Status: Acute Qualifiers: Hypertension type: essential hypertension Qualified Code(s): I10 - Essential (primary) hypertension (5) CVA (cerebral vascular accident): Acute left MCA CVA, noted following aortic valve replacement. Previously done documented no carotid artery stenosis. Goal blood pressure is 140, to 150 neurology has been consulted. Continue aspirin. Continue statin. Planned for MOIES tomorrow to evaluate for thromboembolic event. will leave patient intubated for the same today. With sedation vacataion, she is able to wake up, follows commands to open her eyes and move her legs. Moves upper extremities spontaneously with weaning sedation Status: Acute Qualifiers: CVA mechanism: other Qualified Code(s): I63.89 - Other cerebral infarction Additional A&P Information Anemia, hemoglobin has drifted down to 8.1, now back to ~10. No active bleeding noted. This appears stable today. Thrombocytopenia. This appears to be stable. Okay to restart Lovenox, lower dose Acute on chronic renal failure, creatinine improved. Continue Mccabe. Transaminitis. Ammonia level normal. RUQ USG today. Hepatitis serology negative for acute hepatitis. May be related to propofol. Will need to change sedation if normal RUQ USG GI prophylaxis, Protonix Tube feeding diet Full code Reinitiate Lovenox for DVT prophylaxis, lower dose Attestations Medical Necessity Statement*: Remains intubated, ventilatory support , MOISE in am Coding Level of Care Code Acute Auto Suspension And Steering Mechanic for Chg Fwd Diagnoses Status post aortic valve replacement with bioprosthetic valve Z95.3 Chronic obstructive pulmonary disease, unspecified J44.9 Bipolar affective disorder F31.9 HTN (hypertension) I10 Hypertension type: essential hypertension CVA (cerebral vascular accident) I63.89 CVA mechanism: other
--- NOTE | 2019-10-24 10:27 | US_ITS ---
WS: [id number] ULTRASOUND ABDOMEN LIMITED CLINICAL INFORMATION: transaminitis, incraesing LFTs, check RUQ COMPARISON: None. FINDINGS: Liver Size: Upper limits of normal Craniocaudal length: 17.6 cm. Echogenicity: Normal. Surface nodularity: None. Mass (size and location): None. Bile ducts Intrahepatic ducts: Normal. Common bile duct diameter: 0.4 cm. Gallbladder Removed Pancreas Normal as visualized. Right kidney: Normal. Hydronephrosis: None. Size: 9.8 cm x 4.4 cm x 3.4 cm. Abdominal aorta and IVC Visualized portions are normal. Ascites: None. US/US abdomen limited [id number] IMPRESSION: 1. Liver is normal in appearance. No intrahepatic biliary ductal dilatation. L iver size upper limits of normal. 2. Cholecystectomy. 3. Normal common bile duct. 4. No hydronephrosis in right kidney. 5. No acute abdominal findings.
[2019-10-24 11:29] LABS: Glucose Point of Care 88 mg/dL (70-110)
[2019-10-24] MEDS: amlodipine 5 mg Tablet PO (11:29)
--- NOTE | 2019-10-24 12:12 | PC.SOCIAL ---
IMM Updated Updated pt's family via phone on Pg @ IMM. They verbally understand. Copy provided to pt & left on pt's bedside table. Signed, dated, & timed the copy in pt's chart.
--- NOTE | 2019-10-24 12:31 | PM.PN ---
Subjective Subjective: Interval history: Remains intubated patient has reactive retinal response. Patient trying to move right arm whenever sedation has reviewed Medications: Reviewed: Yes Vitals/I&O/Wt Last Vital Signs Temp 97.5 F L 10/24/19 08:00 Pulse 76 10/24/19 12:00 Resp 38 H 10/24/19 12:00 BP 164/80 10/24/19 12:00 Pulse Ox 100 10/24/19 12:00 10/23/19 10/24/19 10/24/19 22:59 06:59 14:59 Intake Total 776.5 / 876.5 4170 / 5046.5 100 / 100 Output Total 1500 / 1535 1850 / 3385 1200 / 1200 Balance -723.5 / -658.5 2320 / 1661.5 -1100 / -1100 Physical Exam Narrative: EXAM NARRATIVE: GENERAL: Patient is intubated and sedated, reactive retinal response NECK: Right side neck swelling HEENT: No cyanosis. No icterus. No pallor. HEART: Regular S1 and S2. No murmur, rub or gallop. LUNGS: bilaterally. ABDOMEN: Mildly distended, faint bowel sounds sounds. No guarding, rebound or tenderness. CENTRAL NERVOUS SYSTEM: Cannot assess Lower extremities without edema Urinary Catheter Management^: Mccabe: Cath Placed During This Visit: yes Reason for Continuing Indwelling Catheter: Accurate Measurement of Urinary Output in Critically Ill Patients Urinary Catheter Date of Insertion: 10/17/19 Urinary Catheter Time of Insertion: 08:12 Data : 10/24/19 06:45 10/24/19 05:05 Micro: Microbiology 10/22/19 14:30 MRSA Culture - Final Nose 10/20/19 08:45 Gram Stain - Final Sputum - Endotracheal Tube Aspirate Sputum Culture - Final Serratia marcescens A&P Assessment and plan (1) Acute renal failure (ARF): Continue to monitor closely. Hold Lasix may be IV fluid with gentle hydration. Status: Acute (2) Thrombocytopenia: Continue to monitor currently stable at 60 Status: Acute (3) Left acute arterial ischemic stroke, MCA (middle cerebral artery): Planning transesophageal echocardiogram by bedside to look into aortic valve for any thrombus. Status: Acute (4) Bipolar affective disorder: Status: Acute (5) Sleep apnea: Status: Acute (6) Chronic obstructive pulmonary disease, unspecified: As per medicine Status: Acute (7) Status post aortic valve replacement with bioprosthetic valve: Appear to be stable from a valvular perspective. Transesophageal echocardiogram will be performed most likely tomorrow to assess aortic valve and any thrombus Status: Acute (8) Shortness of breath: Status: Acute (9) HTN (hypertension): Blood pressure is better under control, due to bradycardia Coreg was reduced and losartan is on hold due to worsening of creatinine Status: Acute Qualifiers: Hypertension type: essential hypertension Qualified Code(s): I10 - Essential (primary) hypertension (10) Transaminitis: Status: Acute Additional A&P Information Continue to follow. No changes today. Attestations Medical Necessity Statement*: Patient require continuation hospitalization for above defined care Coding Level of Care Code Established Pt Acute Strategic Planning Manager for Chg Fwd Patient Type Established History Expanded Problem Focused Exam Expanded Problem Focused Medical Decision Making Moderate Complexity Diagnoses Acute renal failure (ARF) N17.9 Thrombocytopenia D69.6 Left acute arterial ischemic stroke, MCA (middle cerebral artery) I63.512 Bipolar affective disorder F31.9 Sleep apnea G47.30 Chronic obstructive pulmonary disease, unspecified J44.9 Status post aortic valve replacement with bioprosthetic valve Z95.3 Shortness of breath R06.02 HTN (hypertension) I10 Hypertension type: essential hypertension Transaminitis R74.0
[2019-10-24] MEDS: enoxaparin 40 mg/0.4 mL Syringe SUBCUT (13:48)
[2019-10-24] MEDS: carvedilol 3.125 mg Tablet PO (17:57)
--- NOTE | 2019-10-24 18:23 | PC.NURSE ---
Patient had brief 5 beat run of SVT at 1757 and 18 beat run of SVT at 1810. Patient returned back to normal SR. Dr. Deluca notified and instructed to continue to monitor patient and no interventions at this time. Dr. Pro called with no answer. Will try again. Dr. Luciano also verbally notified. Patient asymptomatic and stable at this time, will continue to monitor.
--- NOTE | 2019-10-24 19:30 | PC.NURSE ---
assumed patient care. patient is currently on vent support, opens eyes to verbal stimuli. does not follow any commands. patient still is having copius amounts of secretions mccabe in color, and they are very tenacious. neck and chin area still have edema noted soft to touch with no hard or indurated areas. ogt is infusing pulmocare at 35 mls hour. tolerated thus far. chest incision is dry and in tact abdomen is large soft and bs x 4 quads. hairston has dark elmer urine , skin has few abrasions and reddened area on buttocks. bruising noted on hand. pedal pulse positive bilateral and palpable.
[2019-10-24] MEDS: atorvastatin 40 mg Tablet PO (20:44)
[2019-10-24] MEDS: propofol 1,000 MG/100 ML INJ 9.3 MG IV (23:09)
[2019-10-24] MEDS: sodium chloride 0.9% 1,000 ML 30 ML IV (23:10)
[2019-10-25] VITALS (36 sets, daily range): BP systolic 115–207; BP diastolic 46–81; PULSE 65–95; RESP 12–39; TEMP 36.8–37.3; O2SAT 88–100
[2019-10-25 04:01] LABS: Basophils % 0.4 %; Eosinophils # 0.3 10^3/uL (0.0-0.8); Eosinophils % 3.6 %; Hematocrit 27.7 % (37.0-47.0); Hemoglobin 8.7 g/dL (11.5-15.3); Lymphocytes # 1.3 10^3/uL (0.8-4.8); Lymphocytes % 14.4 %; Mean Corpuscular HGB Conc 31.4 g/dL (30.0-36.0); Mean Corpuscular Hemoglobin 30.7 pg (28.0-34.0); Mean Corpuscular Volume 97.9 fL (81-99); Mean Platelet Volume 11.3 fL (7.4-10.4); Monocytes # 1.1 10^3/uL (0.2-0.9); Monocytes % 12.3 %; Neutrophils # 5.7 10^3/uL (1.8-7.7); Neutrophils % 63.9 %; Nucleated Red Blood Cells % 0 %; Platelet Count 111 10^3/cmm (130-400); Positive C 1; Positive M 1; Red Blood Count 2.83 10^6/uL (4.1-5.3); Red Cell Distribution Width 14.5 % (12.1-15.1)
[2019-10-25 04:18] LABS: Alanine Aminotransferase 79 U/L (0-33); Albumin Level 2.3 g/dL (3.5-5.2); Alkaline Phosphatase 220 IU/L (35-105); Anion Gap 14.3 (5-19); Aspartate Amino Transferase 133 U/L (0-32); Blood Urea Nitrogen 40 mg/dL (8-23); Carbon Dioxide 21 mmol/L (22-29); Chloride 110 mmol/L (98-107); Globulin 2.8 g/dL (1.3-4.6); Glucose 92 mg/dL (65-115); Osmolality Calculated 289 mOsm/kg (285-295); Potassium 4.3 mmol/L (3.5-5.1); Sodium 141 mmol/L (136-145); Total Bilirubin 0.5 mg/dL (0.15-1.2); Total Protein 5.1 g/dL (6.6-8.7)
[2019-10-25 05:05] LABS: Slide Review Slide Review Perform
[2019-10-25] MEDS: propofol 1,000 MG/100 ML INJ 9.3 MG IV (05:20)
--- NOTE | 2019-10-25 05:21 | PC.NURSE ---
Tube feeding has been off since midnight. this is for MOISE to be done by Dr. Mcconnell at 0700. Dr. Mcconnell spoke with warehouse person about scheduling.
--- NOTE | 2019-10-25 07:00 | USCV_ITS ---
Nancy Brasher Age: 74 Gender: F : 1945 Exam Date: 10/25/2019 07:07 Ordering Phys: Brent Deluca MD ([email or web address]) Technologist: Nam Douglas Exam Location: [facility] [place] Indication: POST VALVE REPLACEMENT BP: / HR: Rhythm: Sinus Technical Quality: MEASUREMENTS (Male / Female) Normal Values Medications Patient given IV sedation by anesthesia service, for details please refer to the anesthesia report. Complications None. Proc. Components MOISE was performed at multiple levels. FINDINGS Left Ventricle Normal left ventricular cavity size. Normal left ventricular systolic function. Left ventricular ejection fraction is estimated at 55 %. Right Ventricle The right ventricle is normal in size and function. Right Atrium The right atrium is normal in size. Left Atrium The left atrium is normal in size. LA Appendage The LA appendage is normal. IA Septum The interatrial septum is normal visually and by color Doppler no PFO noted Mitral Valve Mildly thickened mitral valve. No mitral valve stenosis. Mild mitral valve regurgitation. Aortic Valve Bioprosthetic aortic valve is sitting in normal position without any valvular or paravalvular leak. There appeared to be no thrombus or mass noted on valvular cusps Tricuspid Valve Structurally normal tricuspid valve without significant stenosis or regurgitation. Pulmonary artery systolic pressure is normal. Pulmonic Valve Structurally normal pulmonic valve without significant stenosis. There is no pulmonic regurgitation. Pericardium Normal pericardium without effusion. Aorta Normal ascending aorta dimension. CONCLUSIONS 1-Normal left ventricular cavity size. Normal left ventricular systolic function. Left ventricular ejection fraction is estimated at 55 %. 2-Bioprosthetic aortic valve is sitting in normal position without any valvular or paravalvular leak. There appeared to be no thrombus or mass noted on valvular cusps . 3-Structurally normal tricuspid valve without significant stenosis or regurgitation. Pulmonary artery systolic pressure is normal. 4-The interatrial septum is normal visually and by color Doppler no PFO noted. 5-There is no pericardial effusion. 6-There are no prior echocardiogram studies to compare. Brent Deluca MD (Electronically Signed) Final Date: 25 October 2019 12:05 S
--- NOTE | 2019-10-25 07:04 | P.ANESASSM_ITS ---
Pre-Anesthetic Assessment Pre-Anesthetic Assessment: Height/Weight: Height 1.61 m Weight 77.111 kg Temp Pulse Resp BP Pulse Ox 99.1 F 70 18 122/70 98 10/25/19 04:00 10/25/19 05:51 10/25/19 06:23 10/25/19 05:51 10/25/19 06:23 Preop Diagnosis: Severe aortic valve stenosis Proposed Procedure: Operation Date: 10/17/19 07:30 Proposed Procedures p Aortic Valve Replacement(Not Applicable) - Guerrero Luciano MD Operation Date: 10/25/19 07:00 Proposed Procedures p MOISE (Transesophageal Echocardiogram)(Not Applicable) - Brent Deluca MD Was Beta Ivon taken within 24 hours: N/A Last intake: Intake Last Liquid Date 10/16/19 Last Liquid Time 19:30 Last Solid Date 10/16/19 Last Solid Time 18:30 Social: Social History: No alcohol and No tobacco Exam: Additional Exam Findings (including area of procedure): patient intubated and sedated in ICU Pulmonary: Pulmonary: COPD and Sleep apnea CV/HEM: CV/HEM: CAD and HTN : Comments: renal insufficiency Hepatic: Comments: elevated LFTS GI: GI: None reported Metabolic: Metabolic: Thyroid Musc/skel: Musc/skel: None reported Neuropsych: Neuropsych: Bipolar and CVA Anesthetic Plan: ASA status: 3 Anesthesia: Anesthesia Evaluation Other: patient intubated and sedated phone consent with daughter done over the phone Meds/Allergies Current Medications: Current Medications Generic Name Dose Route Start Last Admin Trade Name Freq PRN Reason Stop Dose Admin Amlodipine Besylat e 5 mg 10/24/19 10:30 10/24/19 11:29 Norvasc PO 5 mg DAILY MACHELLE Administration Aspirin 81 mg 10/18/19 09:00 10/24/19 08:53 Aspirin Chewable PO 81 mg DAILY MACHELLE Administration Atorvastatin Calci um 40 mg 10/19/19 21:00 10/24/19 20:44 Lipitor PO 40 mg BEDTIME MACHELLE Administration Carvedilol 3.125 mg 10/21/19 10:56 10/24/19 17:57 Coreg PO 3.125 mg BID MACHELLE Administration Chlorhexidine Gluc humble 15 ml 10/17/19 18:00 10/24/19 17:59 Perigard MUCOUS MEM 1 dose BID MACHELLE Administration Enoxaparin Sodium 40 mg 10/24/19 14:30 10/24/19 13:48 Lovenox SUBCUT 40 mg Q24H MACHELLE Administration Gabapentin 100 mg 10/22/19 09:00 10/24/19 08:53 Neurontin PO 100 mg DAILY MACHELLE Administration Hydralazine HCl 10 mg 10/20/19 07:27 10/20/19 12:01 Apresoline IVP 10 mg Q4H PRN Administration HYPERTENSION Hydralazine HCl 25 mg 10/20/19 09:00 10/24/19 20:44 Apresoline PO 25 mg TID MACHELLE Administration Sodium Chloride 1,000 mls @ 30 ml s/hr 10/21/19 07:00 10/24/19 23:10 Sodium Chloride 0.9% IV 30 mls/hr .Q24H MACHELLE Administration Levofloxacin/Dextr ose 750 mg in 150 mls @ 100 mls/hr 10/23/19 10:00 10/23/19 10:18 Levaquin-D5w IV 100 mls/hr Q48H MACHELLE Administration Protocol Propofol 1,000 mg in 100 m ls @ 0 mls/hr 10/21/19 18:45 10/25/19 05:20 Diprivan IV 20 mcg/kg/min .Q0M MACHELLE 9.3 mls/hr Administration Protocol Per Protocol Fentanyl 1,000 mcg / Sodium 100 mls @ 0 mls/h r 10/24/19 13:32 10/25/19 06:23 Chloride IV 25 mcg/hr .Q0M PRN 2.5 mls/hr SEDATION Administration Protocol Per Protocol Insulin Aspart 0 unit 10/19/19 08:00 10/24/19 20:44 Novolog SUBCUT Not Given WM&BEDTIME MACHELLE Protocol Labetalol HCl 10 mg 10/20/19 09:30 10/20/19 09:39 Trandate IVP 10 mg Q4H PRN Administration HYPERTENSION Non-Formulary Medi cation 3 mg 10/21/19 12:25 10/24/19 08:34 Doxepin [Silenor ] PO Not Given DAILY MACHELLE Pantoprazole Sodiu m 40 mg 10/21/19 09:30 10/24/19 08:53 Protonix IVP 40 mg DAILY MACHELLE Administration Venlafaxine HCl 150 mg 10/21/19 12:30 10/24/19 10:24 Effexor Xr PO Not Given DAILY MACHELLE PFSH Anesthesia PFSH: Medical History (Updated 10/23/19 @ 06:56 by Beltran Yeboah MD) Aortic stenosis, severe Arthropathy, unspecified Backache Bipolar affective disorder Chronic obstructive pulmonary disease, unspecified HTN (hypertension) Hypercholesterolemia Irritable bowel syndrome Labyrinthitis Peripheral vertigo RLS (restless legs syndrome) Sleep apnea Surgical History (Updated 10/18/19 @ 17:44 by Brent Deluca MD) H/O eye surgery H/O foot surgery H/O oral surgery History of abdominal hysterectomy History of appendectomy Hx of cholecystectomy Status post aortic valve replacement with bioprosthetic valve Performed 10/17/[address] Luciano Social History Smoking and tobacco status: former smoker Quit status (tobacco): has quit using tobacco Year quit tobacco: 1979 - ciggs x 6 Years Alcohol intake: never Lives independently: Yes Household members: none Marital status: / Current occupational status: retired and disabled Pets and animals: Yes Pets & animals: dog(s) History of recent travel: No Current gender identity: Female Supplemental PFSH Information: Unable to obtain family history from patient as she is currently intubated and sedated Data Anesthesia CBC & Chem 7: 10/25/19 03:15 10/25/19 03:15 Other Labs: Laboratory Results - last 48 hr 10/22/19 10/23/19 10/23/19 17:24 03:17 07:48 WBC Corrected WBC RBC Hgb Hct MCV MCH MCHC RDW Plt Count MPV Gran % Neut % (Auto) Lymph % (Auto) [place] % (Auto) Eos % (Auto) Baso % (Auto) Neut # (Auto) Lymph # (Auto) [place] # (Auto) Eos # (Auto) Baso # (Auto) Absolute Gran (auto) Nucleated RBC % (auto) Nucleated RBCs # Specimen Type Sample Site ABG pH ABG pCO2 ABG pO2 ABG HCO3 ABG Base Excess Brian Test Hematocrit Respiration Rate O2 Delivery Device FiO2 Tidal Volume PEEP Adjunct Faculty ID Sodium Potassium Chloride Carbon Dioxide Anion Gap BUN Creatinine Glucose POC Glucose 97 92 Calculated Osmolality Calcium Total Bilirubin AST ALT Alkaline Phosphatase Total Protein Albumin Globulin Hepatitis A IgM Ab Non-reactive Hep Bs Antigen Non-reactive Hep B Core IgM Ab Non-reactive Hepatitis C Antibody Non-reactive 10/23/19 10/23/19 10/23/19 09:12 11:23 17:28 WBC Corrected WBC RBC Hgb Hct MCV MCH MCHC RDW Plt Count MPV Gran % Neut % (Auto) Lymph % (Auto) [place] % (Auto) Eos % (Auto) Baso % (Auto) Neut # (Auto) Lymph # (Auto) [place] # (Auto) Eos # (Auto) Baso # (Auto) Absolute Gran (auto) Nucleated RBC % (auto) Nucleated RBCs # Specimen Type Arterial Sample Site Radial, right ABG pH 7.36 ABG pCO2 34.3 L ABG pO2 90.8 ABG HCO3 19.5 L ABG Base Excess -5.3 L Brian Test Pos Hematocrit 28.3 L Respiration Rate 12.0 O2 Delivery Device Vent FiO2 35.0 Tidal Volume 0.4 PEEP 10.0 Adjunct Faculty ID cak Sodium Potassium Chloride Carbon Dioxide Anion Gap BUN Creatinine Glucose POC Glucose 111 97 Calculated Osmolality Calcium Total Bilirubin AST ALT Alkaline Phosphatase Total Protein Albumin Globulin Hepatitis A IgM Ab Hep Bs Antigen Hep B Core IgM Ab Hepatitis C Antibody 10/23/19 10/24/19 10/24/19 20:18 05:05 05:05 WBC Cancelled Corrected WBC Cancelled RBC Cancelled Hgb Cancelled Hct Cancelled MCV Cancelled MCH Cancelled MCHC Cancelled RDW Cancelled Plt Count Cancelled MPV Cancelled Gran % Cancelled Neut % (Auto) Cancelled Lymph % (Auto) Cancelled [place] % (Auto) Cancelled Eos % (Auto) Cancelled Baso % (Auto) Cancelled Neut # (Auto) Cancelled Lymph # (Auto) Cancelled [place] # (Auto) Cancelled Eos # (Auto) Cancelled Baso # (Auto) Cancelled Absolute Gran (auto) Cancelled Nucleated RBC % (auto) Cancelled Nucleated RBCs # Cancelled Specimen Type Sample Site ABG pH ABG pCO2 ABG pO2 ABG HCO3 ABG Base Excess Brian Test Hematocrit Respiration Rate O2 Delivery Device FiO2 Tidal Volume PEEP Adjunct Faculty ID Sodium 137 Potassium 4.2 Chloride 108 H Carbon Dioxide 17 L Anion Gap 16.2 BUN 43 H Creatinine 1.4 H Glucose 87 POC Glucose 112 Calculated Osmolality 281 L Calcium 7.9 L Total Bilirubin 0.6 AST 143 H ALT 70 H Alkaline Phosphatase 236 H Total Protein 5.1 L Albumin 2.2 L Globulin 2.9 Hepatitis A IgM Ab Hep Bs Antigen Hep B Core IgM Ab Hepatitis C Antibody 10/24/19 10/24/19 10/24/19 05:41 06:45 07:24 WBC 10.1 H Corrected WBC RBC 3.40 L Hgb 10.3 L Hct 32.4 L MCV 95.3 MCH 30.3 MCHC 31.8 RDW 14.5 Plt Count 67 L MPV 12.1 H Gran % Neut % (Auto) 63.5 Lymph % (Auto) 15.5 [place] % (Auto) 14.3 Eos % (Auto) 3.7 Baso % (Auto) 0.5 Neut # (Auto) 6.4 Lymph # (Auto) 1.6 [place] # (Auto) 1.4 H Eos # (Auto) 0.4 Baso # (Auto) 0.1 Absolute Gran (auto) Nucleated RBC % (auto) 0 Nucleated RBCs # 0.0 Specimen Type Arterial Sample Site Radial, right ABG pH 7.40 ABG pCO2 34.3 L ABG pO2 85.6 ABG HCO3 21.1 L ABG Base Excess -3.2 L Brian Test Pos Hematocrit 29.9 L Respiration Rate 12.0 O2 Delivery Device Vent FiO2 35.0 Tidal Volume 0.4 PEEP 10.0 Adjunct Faculty ID mirna Sodium Potassium Chloride Carbon Dioxide Anion Gap BUN Creatinine Glucose POC Glucose 80 Calculated Osmolality Calcium Total Bilirubin AST ALT Alkaline Phosphatase Total Protein Albumin Globulin Hepatitis A IgM Ab Hep Bs Antigen Hep B Core IgM Ab Hepatitis C Antibody 10/24/19 10/25/19 10/25/19 11:23 03:15 03:15 WBC 9.0 Corrected WBC RBC 2.83 L Hgb 8.7 L Hct 27.7 L MCV 97.9 MCH 30.7 MCHC 31.4 RDW 14.5 Plt Count 111 L MPV 11.3 H Gran % Neut % (Auto) 63.9 Lymph % (Auto) 14.4 [place] % (Auto) 12.3 Eos % (Auto) 3.6 Baso % (Auto) 0.4 Neut # (Auto) 5.7 Lymph # (Auto) 1.3 [place] # (Auto) 1.1 H Eos # (Auto) 0.3 Baso # (Auto) 0.0 Absolute Gran (auto) Nucleated RBC % (auto) 0 Nucleated RBCs # 0.0 Specimen Type Sample Site ABG pH ABG pCO2 ABG pO2 ABG HCO3 ABG Base Excess Brian Test Hematocrit Respiration Rate O2 Delivery Device FiO2 Tidal Volume PEEP Adjunct Faculty ID Sodium 141 Potassium 4.3 Chloride 110 H Carbon Dioxide 21 L Anion Gap 14.3 BUN 40 H Creatinine 1.2 H Glucose 92 POC Glucose 88 Calculated Osmolality 289 Calcium 8.0 L Total Bilirubin 0.5 AST 133 H ALT 79 H Alkaline Phosphatase 220 H Total Protein 5.1 L Albumin 2.3 L Globulin 2.8 Hepatitis A IgM Ab Hep Bs Antigen Hep B Core IgM Ab Hepatitis C Antibody Cardiac Studies: No Data to Display
[2019-10-25 07:58] LABS: Glucose Point of Care 87 mg/dL (70-110)
[2019-10-25] MEDS: amlodipine 5 mg Tablet PO (08:37)
[2019-10-25] MEDS: hyDRALAzine 25 mg Tablet PO ×2 (08:37→14:31)
[2019-10-25] MEDS: aspirin 81 mg Chew Tablet PO (08:37)
[2019-10-25] MEDS: gabapentin 100 mg Capsule PO (08:37)
[2019-10-25] MEDS: carvedilol 3.125 mg Tablet PO ×2 (08:37→16:57)
[2019-10-25] MEDS: pantoprazole 40 mg SDV IVP (08:37)
[2019-10-25] MEDS: chlorhexidine gluconate 0.12% Btl 473 mL 15 ML MUCOUS MEM ×2 (08:38→16:57)
--- NOTE | 2019-10-25 09:08 | PC.NURSE ---
SEDATION After receiving report, nurse went into room and saw sedation was increased overnight on Diprivan from 20 to 30mcg/kg/min, and on Fentanyl from 25 to 75 mcg/hr. After MOISE sedation turned down from 30 to 25 mcg/kg/min on Diprivan, and from 75 to 50 mcg/hr on Fentanyl.
[2019-10-25] MEDS: levofloxacin-dextrose 5 % 750 MG/150 ML PREMIX 100 MG IV (10:46)
--- NOTE | 2019-10-25 10:54 | XR_ITS ---
WS: [id number] CHEST XRAY TECHNIQUE: Portable chest. CLINICAL INFORMATION: pulm edema COMPARISON: October 24, 2019 FINDINGS: Endotracheal tube with tip above the malaika. Right PICC line with tip in the right atrium. Enteric tube with tip below the diaphragm. Heart: Sternotomy. Lungs: Mild chronic emphysematous changes. Small bilateral pleural effusions. Improved pulmonary vasc ular congestion. Bones: Mild thoracic curve. XR/XR chest 1V portable [id number] IMPRESSION: Improved pulmonary vascular congestion and interstitial edema since yesterday. Stable small pleural effusions.
--- NOTE | 2019-10-25 11:05 | P.PN_ITS ---
Subjective Subjective: Interval history: Intubated, sedated. underwent MOISE this am, preliminarily no evidence of clots. Propofol restarted this morning for procedure, now being turned down. On fentanyl 50, also now being titrated down. patient is moing B/L LE to command, acknowledges plans for sedation vacation and vent weaning by blinking eyes, opens eyes to commands and attempts to follow exa ore miner. yeseterday had few runs of SVT, Hb better at 8.7, no signs of bleeding, plt improving, renal function stable, transaminitis stable, RUQ USG withotu acute disease. Medications: Reviewed: Yes Vitals/I&O/Wt Last Vital Signs Temp 98.5 F 10/25/19 07:00 Pulse 69 10/25/19 10:00 Resp 36 H 10/25/19 10:00 BP 124/46 10/25/19 10:00 Pulse Ox 98 10/25/19 10:00 10/24/19 10/25/19 10/25/19 22:59 06:59 14:59 Intake Total 281.94 / 415.00 1036.380 / 1451.380 62.339 / 62.339 Output Total 300 / 1500 200 / 1700 500 / 500 Balance -18.06 / -1085.00 836.380 / -248.620 -437.661 / -437.661 Physical Exam Narrative: EXAM NARRATIVE: GEN: intubated, sedated HEENT: ETT, NG in place CVS: S1S2 N RS: B/l scattered wheezing+ Abd: Soft, nt/nd , bs+ MERCHANDISING INTERN: moves b/L Le to command, does not consistently follow commands for upper extremities but moves them spontaneously against gravity, attempts to acknowledge plan by blinking eyes. Urinary Catheter Management^: Mccabe: Cath Placed During This Visit: yes Reason for Continuing Indwelling Catheter: Accurate Measurement of Urinary Output in Critically Ill Patients Urinary Catheter Date of Insertion: 10/17/19 Urinary Catheter Time of Insertion: 08:12 Data : 10/25/19 03:15 10/25/19 03:15 Micro: Microbiology 10/20/19 10:24 Blood Culture - Final Blood NO GROWTH AFTER 5 DAYS 10/20/19 10:25 Blood Culture - Final Blood NO GROWTH AFTER 5 DAYS A&P Assessment and plan (1) Status post aortic valve replacement with bioprosthetic valve: Postop day #8 aortic valve replacement with bioprosthetic valve performed by Dr. Luciano on October 17 Remains intubated secondary to concerns with mental status post CVA, ongoing attempts at weaning today LFTs trended up yesterday, now stable today, may be contributed by propofol Tried to replace propofol with Precedex previosuly but significant intraventricular conduction delay on beats occurred. Iv lasix 20mg now CXR Status: Acute (2) Chronic obstructive pulmonary disease, unspecified: Concern of ventilator associated pneumonia during this hospital stay with fever. She was placed on Levaquin, cefepime and vancomycin. Sputum culture has grown Serratia. No evidence of COPD exacerbation Abx day 4 today, no current lung infiltrates on CXR Status: Acute (3) Bipolar affective disorder: Continue home medications Status: Acute (4) HTN (hypertension): Norvasc resumed at 5mg po today, BP currently well controlled Continue hydralazine as tolerated by blood pressure Continue carvedilol Losartan discontinued secondary to renal function Status: Acute Qualifiers: Hypertension type: essential hypertension Qualified Code(s): I10 - Essential (primary) hypertension (5) CVA (cerebral vascular accident): Acute left MCA CVA, noted following aortic valve replacement. Previously done documented no carotid artery stenosis. Goal blood pressure is 140, to 150 neurology has been consulted. Continue aspirin. Continue statin. MOISE without obvious thrombus Status: Acute Qualifiers: CVA mechanism: other Qualified Code(s): I63.89 - Other cerebral infarction Additional A&P Information Anemia, hemoglobin has drifted down to 8.7. No active bleeding noted. Thrombocytopenia. This appears to be improving. Acute on chronic renal failure, creatinine improved. Continue Mccabe. Transaminitis. Ammonia level normal. RUQ USG without acute pathology. Hepatitis serology negative for acute hepatitis. May be related to propofol, which is being weaned down and discontinued. GI prophylaxis, Protonix Tube feeding diet Full code DVt ppx: lovenox Updates discussed with sister Pearl Attestations Medical Necessity Statement*: ongoing attempts to wean off ventilator Coding Level of Care Code Acute Interface Developer for Chg Fwd Diagnoses Status post aortic valve replacement with bioprosthetic valve Z95.3 Chronic obstructive pulmonary disease, unspecified J44.9 Bipolar affective disorder F31.9 HTN (hypertension) I10 Hypertension type: essential hypertension CVA (cerebral vascular accident) I63.89 CVA mechanism: other
[2019-10-25] MEDS: FUROsemide 10 mg/mL SDV 4mL 20 MG IVP ×2 (11:11→16:57)
[2019-10-25 11:19] LABS: Glucose Point of Care 112 mg/dL (70-110)
[2019-10-25 11:25] LABS: Glucose Point of Care 78 mg/dL (70-110)
--- NOTE | 2019-10-25 12:39 | P.PN_ITS ---
Subjective Subjective: Interval history: Status post transvaginal echocardiogram which showed aortic valve working and sitting in normal position without any valvular or paravalvular leak. No thrombus was noted. No cardiac source of emboli was noted. Medications: Reviewed: Yes Vitals/I&O/Wt Last Vital Signs Temp 98.5 F 10/25/19 07:00 Pulse 76 10/25/19 12:00 Resp 26 H 10/25/19 12:10 BP 168/62 10/25/19 12:00 Pulse Ox 98 10/25/19 12:00 10/24/19 10/25/19 10/25/19 22:59 06:59 14:59 Intake Total 281.94 / 415.00 1036.380 / 1451.380 97.173 / 97.173 Output Total 300 / 1500 200 / 1700 500 / 500 Balance -18.06 / -1085.00 836.380 / -248.620 -402.827 / -402.827 Physical Exam Narrative: EXAM NARRATIVE: GENERAL: Patient is intubated and sedated, reactive retinal response NECK: Right side neck swelling HEENT: No cyanosis. No icterus. No pallor. HEART: Regular S1 and S2. No murmur, rub or gallop. LUNGS: bilaterally. ABDOMEN: Mildly distended, faint bowel sounds sounds. No guarding, rebound or tenderness. CENTRAL NERVOUS SYSTEM: Cannot assess Lower extremities without edema Urinary Catheter Management^: Mccabe: Cath Placed During This Visit: yes Reason for Continuing Indwelling Catheter: Accurate Measurement of Urinary Output in Critically Ill Patients Urinary Catheter Date of Insertion: 10/17/19 Urinary Catheter Time of Insertion: 08:12 Data : 10/25/19 03:15 10/25/19 03:15 Micro: Microbiology 10/20/19 10:24 Blood Culture - Final Blood NO GROWTH AFTER 5 DAYS 10/20/19 10:25 Blood Culture - Final Blood NO GROWTH AFTER 5 DAYS A&P Assessment and plan (1) Acute renal failure (ARF): Stable continue to monitor. Status: Acute (2) Thrombocytopenia: Improved. Status: Acute (3) Left acute arterial ischemic stroke, MCA (middle cerebral artery): No cardiac source of emboli noted on transesophageal echocardiogram, aortic valve is sitting in a normal position which is bioprosthetic no valvular or significant paravalvular leak, no thrombus noted, no left atrial appendage thrombus noted, no PFO noted Status: Acute (4) Bipolar affective disorder: Status: Acute (5) Sleep apnea: Status: Acute (6) Chronic obstructive pulmonary disease, unspecified: As per medicine Status: Acute (7) Status post aortic valve replacement with bioprosthetic valve: Stable. Status: Acute (8) Shortness of breath: Status: Acute (9) HTN (hypertension): Blood pressure is better under control, due to bradycardia Coreg was reduced and losartan is on hold due to worsening of creatinine Status: Acute Qualifiers: Hypertension type: essential hypertension Qualified Code(s): I10 - Essential (primary) hypertension (10) Transaminitis: Status: Acute Additional A&P Information Continue to follow. No changes today. Attestations Medical Necessity Statement*: Patient require continuation of hospitalization for above defined care Coding Level of Care Code Established Pt Acute Maintenance Service Supervisor for Chg Fwd Patient Type Established History Expanded Problem Focused Exam Expanded Problem Focused Medical Decision Making Moderate Complexity Diagnoses Acute renal failure (ARF) N17.9 Thrombocytopenia D69.6 Left acute arterial ischemic stroke, MCA (middle cerebral artery) I63.512 Bipolar affective disorder F31.9 Sleep apnea G47.30 Chronic obstructive pulmonary disease, unspecified J44.9 Status post aortic valve replacement with bioprosthetic valve Z95.3 Shortness of breath R06.02 HTN (hypertension) I10 Hypertension type: essential hypertension Transaminitis R74.0
[2019-10-25] MEDS: enoxaparin 40 mg/0.4 mL Syringe SUBCUT (14:31)
--- NOTE | 2019-10-25 14:45 | PC.NURSE ---
CHANGE IN GCS After titrating sedation down, patient began to spontaneously open her eyes and look around the room. Patient would move legs and arms when instructed to; however, patient would not obey command when told to squeeze doctor/nurses hands. Patient has become more mobile so far during this shift moving legs, arms, opening eyes and turning head side to side. Sedation is now turned off and patient remains the same as listed above.
[2019-10-25 14:46] LABS: ABG PCO2 35.2 mmHg (35-45); Arterial Blood Gas Hematocrit 31.5 % (37-47); Base Excess ABG -2.4 mmol/L (-2.0-2.0); Blood Gas Allen Test Pos; Blood Gas Sample Site Radial, left; Blood Gas Sample Type Arterial; HCO3 ABG 21.9 mmol/L (22-26); Oxygen Device VENT; PO2 ABG 72.4 mmHg (80.0-100.0)
[2019-10-25] MEDS: hyDRALAzine 20 mg/mL INJ 1 mL 10 MG IVP (15:50)
[2019-10-25 16:05] LABS: Glucose Point of Care 95 mg/dL (70-110)
--- NOTE | 2019-10-25 16:15 | XRR_ITS ---
PROCEDURE INFORMATION: Exam: XR Chest, 1 View Exam date and time: 10/25/2019 4:49 PM Age: 74 years old Clinical indication: Device placement; Prior surgery; Surgery type: Cabg; Additional info: Post intubation TECHNIQUE: Imaging protocol: XR of the chest Views: 1 view. COMPARISON: CR XR chest 1V portable [id number] 10/25/2019 11:17 AM FINDINGS: Lungs: Ground-glass opacities in the central left lung and both lung bases have nearly resolved. Mild left base atelectasis. Pleural space: Improved left pleural effusion. No pneumothorax. Heart/Mediastinum: Unremarkable. No cardiomegaly. Bones/joints: Sternotomy changes. Intubation with tip approximately 4.5 cm above the malaika. Right PICC line with tip over the distal SVC. NG tube with tip in the mid stomach. XR/XR chest 1V portable [id number] IMPRESSION: Improved pulmonary edema and left pleural effusion.
[2019-10-25] MEDS: propofol 1,000 MG/100 ML INJ 6.9 MG IV (16:56)
[2019-10-25] MEDS: etomidate 10 ML 100 MG ×2 (17:06→17:07)
[2019-10-25] MEDS: succinylcholine 20 mg/mL SDV 10mL 200 MG (17:07)
[2019-10-25] MEDS: bumetanide 0.25 mg/mL SDV 10 mL 2 MG IV (18:35)
[2019-10-25] MEDS: dexmedetomidine 400 MCG in sodium chloride 0.9% (100 ml) 100 ML IV (18:38)
--- NOTE | 2019-10-25 18:38 | P.CONIM_ITS ---
Providers/Reason For Consult Consulting Physican/Specialty*: Pulmonary critical care medicine Reason for Consult*: Respiratory failure and critical limb patient following bioprosthetic aortic valve replacement complicated by bilateral basal ganglia strokes Attending Physician: Guerrero Luciano MD Primary Care Provider: Mandeep Madrigal MD History of Present Illness History of Present Illness Nancy Brasher is a 74 year old female whom I had evaluated in the office for exertional shortness of breath as a part of preoperative work-up for severe aortic stenosis. The patient had an aortic valve area of 0.8 cm? with a mean aortic valve gradient of 50 mmHg. Her pulmonary function test was consistent with moderate restriction. There was no evidence of obstructive lung disease or COPD. The restriction was secondary to obesity. The patient underwent bioprosthetic aortic valve replacement on October 17. Since then her hospital course has been complicated by multiple issues. The patient has developed acute kidney injury. She also suffered from bilateral basal ganglia strokes. This was confirmed by CT scan of her head on October 19. The strokes are not present on October 17. The initial suspicion for stroke was when the patient was having gaze preference and weakness in her body. It appears that the patient has regained her strength back and she was following commands and moving all her extremities today. The patient has also developed acute kidney injury. The patient was extubated this morning however she became tachypneic and started having frothy sputum production and subsequently got reintubated likely secondary to acute pulmonary edema. I had performed a bedside ultrasound. The patient has bilateral pleural effusion with atelectasis. Significantly dilated IVC and there is also evidence of fluid in the subcutaneous fascial planes especially in her lower extremities. On ultrasound of the right IJ the patient has a nonocclusive clot. The patient underwent a transesophageal echocardiogram today which revealed normal ejection fraction and wall position of the valve. I have reviewed the patient's radiologic data, laboratory data and microbiologic data. The patient is currently intubated and sedated with propofol and fentanyl not following any commands. She is on volume control mechanical ventilation with an FiO2 of 35%, tidal volume of 400, PEEP of 12 respiratory to 14. Review of Systems Narrative: Unable to assess Meds/Allergies Home Medications and Allergies Home Medications Medication Instructions Recorded Confirmed Last Taken Type venlafaxine 150 mg PO DAILY 05/16/19 10/17/19 10/16/19 History aripiprazole 10 mg tablet 10 mg PO DAILY 07/26/19 10/17/19 10/16/19 History cetirizine 10 mg tablet 5 mg PO DAILY 07/26/19 10/17/19 10/16/19 History dexlansoprazole 60 mg 60 mg PO DAILY 07/26/19 10/17/19 10/16/19 History capsule,biphase delayed release doxepin 3 mg tablet 3 mg PO DAILY tab 07/26/19 10/17/19 10/16/19 History estradiol 0.5 mg tablet 0.5 mg PO DAILY 07/26/19 10/17/19 10/16/19 History fluticasone propionate 50 1 spray INTRANASAL DAILY 07/26/19 10/17/19 10/16/19 History mcg/actuation nasal spray,suspension gabapentin 100 mg capsule 100 mg PO DAILY 07/26/19 10/17/19 10/16/19 History lisinopril 2.5 mg tablet 2.5 mg PO DAILY 07/26/19 10/17/19 10/16/19 History rivastigmine 4.6 mg TRANSDERMA DAILY 07/26/19 10/17/19 10/16/19 History simvastatin 40 mg tablet 40 mg PO DAILY 07/26/19 10/17/19 10/16/19 History fluticasone 100 mcg-salmeterol 50 1 inh INHALATION Q12H 30 Days #60 09/14/19 10/12/19 Unknown Rx mcg/dose blistr powdr for each inhalation Allergies Allergy/AdvReac Type Severity Reaction Status Date / Time metronidazole [From Flagyl] Allergy ALGY-Rash Verified 09/14/19 14:01 Current Medications Current Medications Generic Name Dose Route Start Last Admin Trade Name Freq PRN Reason Stop Dose Admin Amlodipine Besylate 5 mg 10/24/19 10:30 10/25/19 08:37 Norvasc PO 5 mg DAILY MACHELLE Administration Aspirin 81 mg 10/18/19 09:00 10/25/19 08:37 Aspirin Chewable PO 81 mg DAILY MACHELLE Administration Atorvastatin Calcium 40 mg 10/19/19 21:00 10/24/19 20:44 Lipitor PO 40 mg BEDTIME MACHELLE Administration Chlorhexidine Gluconate 15 ml 10/17/19 18:00 10/25/19 16:57 Perigard MUCOUS MEM 1 dose BID MACHELLE Administration Enoxaparin Sodium 40 mg 10/24/19 14:30 10/25/19 14:31 Lovenox SUBCUT 40 mg Q24H MACHELLE Administration Gabapentin 100 mg 10/22/19 09:00 10/25/19 08:37 Neurontin PO 100 mg DAILY MACHELLE Administration Levofloxacin/Dextrose 750 mg in 150 mls @ 100 mls/hr 10/23/19 10:00 10/25/19 13:00 Levaquin-D5w IV Infused Q48H MACHELLE Infusion Protocol Fentanyl 1,000 mcg/ Sodium 100 mls @ 0 mls/hr 10/24/19 13:32 10/25/19 11:18 Chloride IV 25 mcg/hr .Q0M PRN 2.5 mls/hr SEDATION Titration Protocol Per Protocol Insulin Aspart 0 unit 10/19/19 08:00 10/25/19 16:55 Novolog SUBCUT Not Given WM&BEDTIME MACHELLE Protocol Venlafaxine HCl 150 mg 10/21/19 12:30 10/25/19 07:59 Effexor Xr PO Not Given DAILY MACHELLE PFSH Acute PFSH: Medical History Aortic stenosis, severe Arthropathy, unspecified Backache Bipolar affective disorder Chronic obstructive pulmonary disease, unspecified HTN (hypertension) Hypercholesterolemia Irritable bowel syndrome Labyrinthitis Peripheral vertigo RLS (restless legs syndrome) Sleep apnea Surgical History H/O eye surgery H/O foot surgery H/O oral surgery History of abdominal hysterectomy History of appendectomy Hx of cholecystectomy Status post aortic valve replacement with bioprosthetic valve Performed 10/17/[address] Luciano Social History Smoking and tobacco status: former smoker Quit status (tobacco): has quit using tobacco Year quit tobacco: 1979 - ciggs x 6 Years Alcohol intake: never Lives independently: Yes Household members: none Marital status: / Current occupational status: retired and disabled Pets and animals: Yes Pets & animals: dog(s) History of recent travel: No Current gender identity: Female Vitals/I&O/Wt Last Vital Signs Temp 98.5 F 10/25/19 07:00 Pulse 86 10/25/19 18:00 Resp 29 H 10/25/19 17:00 BP 174/56 10/25/19 18:00 Pulse Ox 95 10/25/19 18:00 10/25/19 10/25/19 10/25/19 06:59 14:59 22:59 Intake Total 1036.380 / 1451.380 247.173 / 247.173 0 / 247.173 Output Total 200 / 1700 1450 / 1450 350 / 1800 Balance 836.380 / -248.620 -1202.827 / -1202.827 -350 / -1552.827 Weight last 48 hrs Weight 210 lb 12.8 oz Physical Exam Narrative: EXAM NARRATIVE: General: The patient is intubated and sedated. HEENT: Miosis, no gaze preference when I examined her Respiratory: Bilateral diffuse crackles Cardiovascular: Regular rate and rhythm, S1-S2 present, no murmur, bilateral peripheral edema Abdomen: Soft, nondistended, positive bowel sounds Skin: No rash, no evidence of erythema nodosum or multiforme. Neuro: Unable to assess mental status. Urinary Catheter Management^: Mccabe: Cath Placed During This Visit: yes Reason for Continuing Indwelling Catheter: Accurate Measurement of Urinary Output in Critically Ill Patients Urinary Catheter Date of Insertion: 10/17/19 Urinary Catheter Time of Insertion: 08:12 Data Micro: Micro: Microbiology 10/20/19 10:24 Blood Culture - Fi nal Blood NO GROWTH AFTER 5 DAYS 10/20/19 10:25 Blood Culture - Fi nal Blood NO GROWTH AFTER 5 DAYS Other Data: Other data: I have reviewed the patient's laboratory, microbiologic and radiologic data in detail. A&P Assessment and plan (1) Acute respiratory failure with hypoxia: The patient does not have any previous history of structural lung disease. The moderate restriction on the pulmonary function test was secondary to obesity. The acute hypoxic respiratory failure is secondary to pulmonary edema in the setting of profound fluid overload. According to the chart, the patient's admission weight was 170 pounds currently the patient weighs 210 pounds. This will also be consistent with the course of events that took place today. Since the patient was on positive pressure ventilation her pulmonary edema was essentially mast. With discontinuation of mechanical ventilation and absence of PEEP the patient went into flash pulmonary edema and subsequently required to get reintubated. The patient will need a significant amount of diuresis. I am going to start her on 2 mg of Bumex IV stat. She will need optimization of her diuretic regimen likely with the addition of a thiazide like diuretics and if necessary a potassium sparing diuretics if there is evidence of hypokalemia. Status: Acute (2) Acute kidney injury: The etiology of the acute kidney injury is multifactorial. With supportive therapy this is likely to get better. Status: Acute (3) Transaminitis: The transaminitis is likely secondary to hepatic congestion from significant volume overload. With diuresis this is likely to get better. I am going to stop the atorvastatin for the time being. Status: Acute (4) CVA (cerebral vascular accident): The patient has evidence of new bilateral basal ganglia stroke. However, it appears that her strength has gotten better. The most important thing for her care is going to be optimizing her sedation regimen. I am going to discontinue propofol and start the Precedex. We will t itrate the fentanyl down as much as possible. Once the patient is able to breathe on her own she will be switched to pressure support ventilation. I will likely try a ZEEP trial prior to extubation. This is essentially having the patient on pressure support ventilation without any PEEP. Currently the patient is on aspirin. I am going to start the patient on Keppra. The patient continues to have gaze preference I am unsure whether she is having seizure. Status: Acute Qualifiers: CVA mechanism: other Qualified Code(s): I63.89 - Other cerebral infarction (5) Aortic stenosis, severe: The patient is status post bioprosthetic aortic valve replacement. The aortic valve is well positioned. Going to start the patient on labetalol drip with the blood pressure goal of systolic 140 and heart rate above 55. The reduced afterload will help the patient with the volume overload and heart failure. The patient will require significant diuresis and optimization of her mental status. I believe that she might do well in the near future. Status: Acute Consult Attestations Critical Care Time: Critical Care Time (min): 55 Coding Level of Care Code Acute Dimension Quarry Supervisor for 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 Diagnoses Acute respiratory failure with hypoxia J96.01 Acute kidney injury N17.9 Transaminitis R74.0 CVA (cerebral vascular accident) I63.89 CVA mechanism: other Aortic stenosis, severe I35.0
--- NOTE | 2019-10-25 18:53 | PC.NURSE ---
SHIFT SUMMARY/RE-INTUBATION Patient extubated around 1500 to 4L O2 NC. Patient continued to decline after suctioning and transitioning to an oxymask. Patient given PRN IV hydralazine for BP. Patient re-intubated by doctor due to exhibiting signs of respiratory distress: cold sweats, restlessness, lungs sounds very wet, BP izzy to 200s over 90s, and patient's O2s saturation dropped into the low 80s. After re-intubation, O2 saturation increased, and patients BP is continuing to drop over time. OG tube re-inserted and tube feedings on hold per Dr. Pro. Dr. Vasquez consulted and gave orders to give IV bumex to diurese, start a precedex gtt, d/c the diprivan gtt, start a labetalol gtt with parameters to keep SBP around 140 and HR above 55, and BMP in 6 hours. Patient calm. Will continue to monitor.
[2019-10-25 19:35] LABS: Magnesium 2.3 mg/dL (1.7-2.3); NT Pro B Type Natriuretic Pept 5469 pg/mL (0-125); Phosphorus 3.7 mg/dL (2.5-4.5)
[2019-10-25 21:18] LABS: Glucose Point of Care 82 mg/dL (70-110)
[2019-10-26] VITALS (36 sets, daily range): BP systolic 109–191; BP diastolic 45–81; PULSE 77–89; RESP 12–28; TEMP 36.7–37.4; O2SAT 93–100
[2019-10-26 00:52] LABS: Anion Gap 19.8 (5-19); Blood Urea Nitrogen 34 mg/dL (8-23); Calcium 8.1 mg/dL (8.5-10.5); Carbon Dioxide 20 mmol/L (22-29); Chloride 105 mmol/L (98-107); Glucose 81 mg/dL (65-115); Osmolality Calculated 286 mOsm/kg (285-295); Potassium 4.8 mmol/L (3.5-5.1); Sodium 140 mmol/L (136-145)
[2019-10-26] MEDS: bumetanide 0.25 mg/mL SDV 10 mL 2 MG IV ×3 (02:02→17:15)
[2019-10-26 05:02] LABS: Hematocrit 32.8 % (37.0-47.0); Hemoglobin 10.3 g/dL (11.5-15.3); Mean Corpuscular HGB Conc 31.4 g/dL (30.0-36.0); Mean Corpuscular Hemoglobin 30.3 pg (28.0-34.0); Mean Corpuscular Volume 96.5 fL (81-99); Mean Platelet Volume 10.6 fL (7.4-10.4); Nucleated Red Blood Cells % 0.1 %; Platelet Count 126 10^3/cmm (130-400); Red Cell Distribution Width 14.1 % (12.1-15.1)
[2019-10-26 05:18] LABS: Alanine Aminotransferase 71 U/L (0-33); Albumin Level 2.7 g/dL (3.5-5.2); Alkaline Phosphatase 206 IU/L (35-105); Anion Gap 18.6 (5-19); Aspartate Amino Transferase 95 U/L (0-32); Blood Urea Nitrogen 43 mg/dL (8-23); Calcium 8.1 mg/dL (8.5-10.5); Carbon Dioxide 22 mmol/L (22-29); Chloride 108 mmol/L (98-107); Globulin 2.3 g/dL (1.3-4.6); Glucose 75 mg/dL (65-115); Osmolality Calculated 295 mOsm/kg (285-295); Potassium 4.6 mmol/L (3.5-5.1); Sodium 144 mmol/L (136-145); Total Bilirubin 0.5 mg/dL (0.15-1.2)
[2019-10-26] MEDS: dexmedetomidine 400 MCG in sodium chloride 0.9% (100 ml) 100 ML 6 MCG IV (06:09)
[2019-10-26 06:29] LABS: Slide Review Slide Review Perform
--- NOTE | 2019-10-26 06:32 | PM.PN ---
Subjective Medications: Medication Review Details: Postop day #8 status post AVR with postop mental status changes. Greatly appreciate the expertise and oversight of our hospitalist, cardiology, and pulmonary services. Underwent 3 L diuresis past 24 hours with improved radiographic appearance MOISE yesterday morning by Dr. Deluca revealed appropriate prosthetic valve function without evidence for perivalvular leak, vegetation, or intracavitary thrombus It appears Ms. Brasher became the intravascular volume overloaded as she recollected her third spaced fluid over the past several days. Nice diuresis has occurred. Vitals/I&O/Wt Last Vital Signs Temp 99.3 F 10/26/19 04:00 Pulse 78 10/26/19 06:00 Resp 12 10/26/19 06:22 BP 128/55 10/26/19 06:00 Pulse Ox 99 10/26/19 06:00 10/25/19 10/25/19 10/26/19 14:59 22:59 06:59 Intake Total 247.173 / 247.173 141.886 / 389.059 68.3 / 457.359 Output Total 1450 / 1450 350 / 1800 1650 / 3450 Balance -1202.827 / -1202.827 -208.114 / -1410.941 -1581.7 / -2992.641 Weight last 48 hrs Weight 210 lb 12.8 oz Physical Exam Chest: COMMONS NORMALS: normal inspection of the chest (Sternotomy incision remains clean and dry. Sternum appears to be stable.) Cardio: COMMON NORMALS: regular rate, regular rhythm, S1 normal heart sound present, No murmurs present (Cardio) and No rub (Cardio) RATE: regular rate RHYTHM: regular rhythm HEART SOUNDS: S1 normal heart sound present Urinary Catheter Management^: Mccabe: Cath Placed During This Visit: yes Reason for Continuing Indwelling Catheter: Accurate Measurement of Urinary Output in Critically Ill Patients Urinary Catheter Date of Insertion: 10/17/19 Urinary Catheter Time of Insertion: 08:12 Data : 10/26/19 04:15 10/26/19 04:15 Micro: Microbiology 10/20/19 10:24 Blood Culture - Final Blood NO GROWTH AFTER 5 DAYS 10/20/19 10:25 Blood Culture - Final Blood NO GROWTH AFTER 5 DAYS A&P Assessment and plan (1) S/P AVR (aortic valve replacement): Overall improved physiologically with continued mental status change We will continue meticulous wound care and consistent use of a surgical bra. 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
[2019-10-26 06:33] LABS: Absolute Eosinophils 0.5 10^3/cmm (0.0-0.7); Absolute Segmented Neutrophil 7.6 10/cmm (1.6-7.1); Band Neutrophils Absolute 0.6 10^3/cmm (0.0-1.2); Eosinophils 4 %; Lymphocytes 16 %; Monocytes Absolute 2.5 10^3/cmm (0.1-0.6); Segmented Neutrophils 54 %; Total Cells Counted 100 (0-100)
[2019-10-26 06:34] LABS: Absolute Neutrophil 8.1 10^3/cmm (1.4-6.5); Anisocytosis 2+; Platelet Estimate Decreased (Normal)
[2019-10-26 07:41] LABS: Glucose Point of Care 77 mg/dL (70-110)
--- NOTE | 2019-10-26 08:07 | PC.NURSE ---
Just starting the process. Fentanyl is off. Dexmedetomidine is at 0.3
[2019-10-26] MEDS: chlorhexidine gluconate 0.12% Btl 473 mL 15 ML MUCOUS MEM ×2 (09:41→17:34)
[2019-10-26] MEDS: venlafaxine ER (24HR) 150 mg Capsule PO (09:41)
[2019-10-26] MEDS: aspirin 81 mg Chew Tablet PO (09:41)
[2019-10-26] MEDS: pantoprazole DR 40 mg Tablet NG-TUBE (09:41)
[2019-10-26] MEDS: amlodipine 5 mg Tablet PO (09:41)
[2019-10-26] MEDS: gabapentin 100 mg Capsule PO (09:41)
--- NOTE | 2019-10-26 09:41 | P.PN_ITS ---
Subjective Subjective: Interval history: I saw this patient when she developed left gaze preference and right hemiparesis not long after aortic valve replacement. She was already improving by the time I did my evaluation and it was my impression that she probably had a small embolus from aortic arch origin that was already resolving. Indeed by the next day her symptoms had largely resolved although intermittently it has been reported that she looks to the left. It has not been possible to get her extubated and yesterday she went into flash pulmonary edema. She has been sedated for more than a week. She is still on fentanyl and low- dose sedative. Vitals/I&O/Wt Last Vital Signs Temp 99.0 F 10/26/19 07:00 Pulse 81 10/26/19 09:00 Resp 19 H 10/26/19 09:21 BP 147/61 10/26/19 09:00 Pulse Ox 96 10/26/19 09:00 10/25/19 10/26/19 10/26/19 22:59 06:59 14:59 Intake Total 141.886 / 389.059 68.3 / 457.359 Output Total 350 / 1800 1650 / 3450 125 / 125 Balance -208.114 / -1410.941 -1581.7 / -2992.641 -125 / -125 Weight last 48 hrs Weight 193 lb 6.4 oz Weight 210 lb 12.8 oz Physical Exam Narrative: EXAM NARRATIVE: She opens eyes to her name and regards the examiner briefly. She nodded her head to command on 2 occasions witnessed by me and by the nurse. She would not radiocommunications technician or move her hands voluntarily but she move the left hand spontaneously. She was moving her feet vigorously and purposefully. She has no focal findings. Intact eye movements. She remains intubated. Urinary Catheter Management^: Mccabe: Cath Placed During This Visit: yes Reason for Continuing Indwelling Catheter: Accurate Measurement of Urinary Output in Critically Ill Patients Urinary Catheter Date of Insertion: 10/17/19 Urinary Catheter Time of Insertion: 08:12 Data : 10/26/19 04:15 10/26/19 04:15 Micro: Microbiology 10/20/19 10:24 Blood Culture - Final Blood NO GROWTH AFTER 5 DAYS 10/20/19 10:25 Blood Culture - Final Blood NO GROWTH AFTER 5 DAYS A&P Assessment and plan (1) CVA (cerebral vascular accident): She had transient right hemiparesis and left gaze preference after aortic valve replacement but her symptoms resolved quickly during my previous exam. Reportedly she has had a left gaze preference on several occasions since then but that is not evident today. She has no focal findings on exam and she is following commands. She was started on Keppra yesterday and I would point out that this patient has a history of severe depression and was on aripiprazole at baseline. Keppra may be sedating for her. I will be glad to discuss further and can be reached on my cell phone. I would recommend a low dose of Zyprexa Zydis 2.5 mg twice daily by tube to help with her mental status. Status: Acute Qualifiers: CVA mechanism: other Qualified Code(s): I63.89 - Other cerebral infarction Attestations Medical Necessity Statement*: She remains intubated with acute kidney injury and multisystem disease following aortic valve replacement. Coding Level of Care Code Acute Cable Weaver for 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 Diagnoses CVA (cerebral vascular accident) I63.89 CVA mechanism: other
--- NOTE | 2019-10-26 10:41 | PC.SOCIAL ---
IMM Update Pg 2. of IMM updated, copy left at bedside for patient.
[2019-10-26 15:27] LABS: Glucose Point of Care 100 mg/dL (70-110)
[2019-10-26 15:29] LABS: Anion Gap 18.2 (5-19); Blood Urea Nitrogen 45 mg/dL (8-23); Calcium 8.1 mg/dL (8.5-10.5); Carbon Dioxide 22 mmol/L (22-29); Chloride 107 mmol/L (98-107); Glucose 96 mg/dL (65-115); Magnesium 1.9 mg/dL (1.7-2.3); Osmolality Calculated 294 mOsm/kg (285-295); Phosphorus 3.9 mg/dL (2.5-4.5); Potassium 4.2 mmol/L (3.5-5.1); Sodium 143 mmol/L (136-145)
[2019-10-26] MEDS: enoxaparin 40 mg/0.4 mL Syringe SUBCUT (15:36)
[2019-10-26] MEDS: morphine 4 mg/mL SDV 1 mL 2 MG IVP (15:36)
--- NOTE | 2019-10-26 17:09 | P.PN_ITS ---
Subjective Subjective: Interval history: The patient seems to be doing better today. She is able to follow commands and easily arousable. Currently the patient is only on Precedex. Her blood pressure is controlled and the patient is diuresing well with Bumex. The patient is currently on pressure support ventilation 03/31 with FiO2 of 30%. Creatinine has remained stable with diuresis. Her endotracheal aspirate culture is positive for Serratia which is sensitive to Levaquin. Medications: Reviewed: Yes Vitals/I&O/Wt Last Vital Signs Temp 99.0 F 10/26/19 11:00 Pulse 78 10/26/19 15:00 Resp 26 H 10/26/19 15:36 BP 164/79 10/26/19 15:00 Pulse Ox 96 10/26/19 15:00 10/26/19 10/26/19 10/26/19 06:59 14:59 22:59 Intake Total 68.3 / 457.359 Output Total 1650 / 3450 625 / 625 Balance -1581.7 / -2992.641 -625 / -625 Weight last 48 hrs Weight 193 lb 6.4 oz Weight 210 lb 12.8 oz Physical Exam Narrative: EXAM NARRATIVE: General: The patient is intubated and sedated. HEENT: Miosis, no gaze preference when I examined her Respiratory: Crackles at the bases Cardiovascular: Regular rate and rhythm, S1-S2 present, no murmur, bilateral peripheral edema Abdomen: Soft, nondistended, positive bowel sounds Skin: No rash, no evidence of erythema nodosum or multiforme. Neuro: Patient is following commands and moving all extremities Urinary Catheter Management^: Mccabe: Cath Placed During This Visit: yes Reason for Continuing Indwelling Catheter: Accurate Measurement of Urinary Output in Critically Ill Patients Urinary Catheter Date of Insertion: 10/17/19 Urinary Catheter Time of Insertion: 08:12 Data : 10/26/19 04:15 10/26/19 14:52 Other data: I have reviewed the patient's laboratory, microbiologic and radiologic data. Patient has leukocytosis. Stable creatinine at 1.3. Wrist x- rays available today. A&P Assessment and plan (1) Acute respiratory failure with hypoxia: Patient seems to be doing better after diuresis. Currently she is on pressure support ventilation with an FiO2 of 30%. She is getting treated for the Serratia pneumonia with Levaquin. We will continue to diurese her and plan for extubation tomorrow. If that is not possible I believe she would be a candidate for extubation on Thursday Status: Acute (2) Acute kidney injury: Creatinine stable. Status: Acute (3) Transaminitis: The transaminitis is getting better from diuresis. This is likely secondary to congestive hepatopathy. Status: Acute (4) CVA (cerebral vascular accident): No significant gaze preference today. I am going to discontinue the Keppra. Status: Acute Qualifiers: CVA mechanism: other Qualified Code(s): I63.89 - Other cerebral infarction (5) Aortic stenosis, severe: The aortic valve in good place. We will continue to control the blood pressure and heart rate. Hypertension might cause the patient to go back into pulmonary edema. Overall I believe the patient is likely to get better in the next 48 hours Status: Acute Attestations Medical Necessity Statement*: Defer to the primary team Coding Level of Care Code Acute Fish Hatchery Manager for logan Hernández Diagnoses Acute respiratory failure with hypoxia J96.01 Acute kidney injury N17.9 Transaminitis R74.0 CVA (cerebral vascular accident) I63.89 CVA mechanism: other Aortic stenosis, severe I35.0 Time Spent (min) 35
--- NOTE | 2019-10-26 17:09 | PM.PN ---
Subjective Subjective: Interval history: Remains intubated however moving right arm unintentionally. Blood pressure stable Medications: Reviewed: Yes Medication Review Details: Postop day #8 status post AVR with postop mental status changes. Greatly appreciate the expertise and oversight of our hospitalist, cardiology, and pulmonary services. Underwent 3 L diuresis past 24 hours with improved radiographic appearance MOISE yesterday morning by Dr. Deluca revealed appropriate prosthetic valve function without evidence for perivalvular leak, vegetation, or intracavitary thrombus It appears Ms. Brasher became the intravascular volume overloaded as she recollected her third spaced fluid over the past several days. Nice diuresis has occurred. Vitals/I&O/Wt Last Vital Signs Temp 99.0 F 10/26/19 11:00 Pulse 78 10/26/19 15:00 Resp 26 H 10/26/19 15:36 BP 164/79 10/26/19 15:00 Pulse Ox 96 10/26/19 15:00 10/26/19 10/26/19 10/26/19 06:59 14:59 22:59 Intake Total 68.3 / 457.359 Output Total 1650 / 3450 625 / 625 Balance -1581.7 / -2992.641 -625 / -625 Weight last 48 hrs Weight 193 lb 6.4 oz Weight 210 lb 12.8 oz Physical Exam Narrative: EXAM NARRATIVE: GENERAL: Patient is intubated and sedated NECK: Right side neck swelling HEENT: No cyanosis. No icterus. No pallor. HEART: Regular S1 and S2. No murmur, rub or gallop. LUNGS: bilaterally. ABDOMEN: Mildly distended, faint bowel sounds sounds. No guarding, rebound or tenderness. CENTRAL NERVOUS SYSTEM: Cannot assess Lower extremities without edema Urinary Catheter Management^: Mccabe: Cath Placed During This Visit: yes Reason for Continuing Indwelling Catheter: Accurate Measurement of Urinary Output in Critically Ill Patients Urinary Catheter Date of Insertion: 10/17/19 Urinary Catheter Time of Insertion: 08:12 Data : 10/26/19 04:15 10/26/19 14:52 A&P Assessment and plan (1) S/P AVR (aortic valve replacement): Stable cardiovascular carrillo. Continue current meds, thrombocytopenia has improved Status: Acute (2) Acute kidney injury: Stable Status: Acute (3) CVA (cerebral vascular accident): As per neurology Status: Acute Qualifiers: CVA mechanism: other Qualified Code(s): I63.89 - Other cerebral infarction (4) HTN (hypertension): Well-controlled continue medicine Status: Acute Qualifiers: Hypertension type: essential hypertension Qualified Code(s): I10 - Essential (primary) hypertension Additional A&P Information Continue to follow. No changes today. Attestations Medical Necessity Statement*: Patient require continuation hospitalization for above defined care. Coding Level of Care Code Established Pt Acute Health Services Coordinator for [facility] Fwd Patient Type Established History Expanded Problem Focused Exam Expanded Problem Focused Medical Decision Making Moderate Complexity Diagnoses S/P AVR (aortic valve replacement) Z95.2 Acute kidney injury N17.9 CVA (cerebral vascular accident) I63.89 CVA mechanism: other HTN (hypertension) I10 Hypertension type: essential hypertension
[2019-10-26] MEDS: hyDRALAzine 20 mg/mL INJ 1 mL 5 MG IVP (17:15)
[2019-10-26] MEDS: magnesium sulfate premix 2 GM/50 ML PIGGYBACK IV (17:33)
[2019-10-26 17:45] LABS: Glucose Point of Care 97 mg/dL (70-110)
--- NOTE | 2019-10-26 18:57 | P.PN_ITS ---
Subjective Subjective: Interval history: Remains intubated and sedated this morning. With extubation attempt yesterday. Since then has been on diuresis with Bumex Medications: Reviewed: Yes Vitals/I&O/Wt Last Vital Signs Temp 99.1 F 10/26/19 18:00 Pulse 86 10/26/19 18:00 Resp 27 H 10/26/19 18:32 BP 163/61 10/26/19 18:00 Pulse Ox 95 10/26/19 18:00 10/26/19 10/26/19 10/26/19 06:59 14:59 22:59 Intake Total 68.3 / 457.359 Output Total 1650 / 3450 625 / 625 150 / 775 Balance -1581.7 / -2992.641 -625 / -625 -150 / -775 Weight last 48 hrs Weight 87.725 kg Weight 95.617 kg Physical Exam Narrative: EXAM NARRATIVE: GEN: intubated, sedated HEENT: ETT, NG in place CVS: S1S2 N RS: B/l scattered wheezing+ Abd: Soft, nt/nd , bs+ CHILDREN'S INSTITUTION ATTENDANT: Intubated sedated unable to assess Urinary Catheter Management^: Mccabe: Cath Placed During This Visit: yes Reason for Continuing Indwelling Catheter: Accurate Measurement of Urinary Output in Critically Ill Patients Urinary Catheter Date of Insertion: 10/17/19 Urinary Catheter Time of Insertion: 08:12 Data : 10/26/19 04:15 10/26/19 14:52 A&P Assessment and plan (1) Status post aortic valve replacement with bioprosthetic valve: Postop day #9 aortic valve replacement with bioprosthetic valve performed by Dr. Luciano on October 17 Remains intubated secondary to concerns with mental status changes. Attempted extubation on October 24 however patient developed flash pulmonary edema after which she needed to be reintubated within about 45 minutes. Currently being diuresed with Bumex and being optimized prior to reattempting. Status: Acute (2) Chronic obstructive pulmonary disease, unspecified: Concern of ventilator associated pneumonia during this hospital stay with fever. She was placed on Levaquin, cefepime and vancomycin. Sputum culture has grown Serratia. No evidence of COPD exacerbation Abx day 4 today, no current lung infiltrates on CXR Status: Acute (3) Bipolar affective disorder: Continue home medications Status: Acute (4) HTN (hypertension): Continue Norvasc , hydralazine Discontinue carvedilol as currently on labetalol Losartan discontinued secondary to renal function Status: Acute Qualifiers: Hypertension type: essential hypertension Qualified Code(s): I10 - Essential (primary) hypertension (5) CVA (cerebral vascular accident): Acute left MCA CVA, noted following aortic valve replacement. Previously done documented no carotid artery stenosis. Goal blood pressure is 140, to 150 neurology has been consulted. Continue aspirin. Continue statin. MOISE without obvious thrombus Status: Acute Qualifiers: CVA mechanism: other Qualified Code(s): I63.89 - Other cerebral infarction (6) Pulmonary edema: Status: Acute Additional A&P Information Anemia, hemoglobin currently stable Thrombocytopenia. This appears to be improving. Acute on chronic renal failure, creatinine improved. Continue Mccabe. Transaminitis. Ammonia level normal. RUQ USG without acute pathology. Hepatitis serology negative for acute hepatitis. May be related to propofol, which which has been discontinued. Also possible congestive hepatopathy GI prophylaxis, Protonix Tube feeding diet Full code DVt ppx: lovenox Updates discussed with sister Pearl Edwards Medical Necessity Statement*: Ongoing need for mechanical ventilation. Coding Level of Care Code Acute Inside Parts Sales for Chg Fwd Diagnoses Status post aortic valve replacement with bioprosthetic valve Z95.3 Chronic obstructive pulmonary disease, unspecified J44.9 Bipolar affective disorder F31.9 HTN (hypertension) I10 Hypertension type: essential hypertension CVA (cerebral vascular accident) I63.89 CVA mechanism: other Pulmonary edema J81.1
[2019-10-26 21:11] LABS: Glucose Point of Care 107 mg/dL (70-110)
[2019-10-26] MEDS: metoprolol tartrate 25 mg Tablet 12.5 MG PO (21:51)
[2019-10-26 22:06] LABS: Anion Gap 22.3 (5-19); Blood Urea Nitrogen 38 mg/dL (8-23); Calcium 8.5 mg/dL (8.5-10.5); Carbon Dioxide 22 mmol/L (22-29); Chloride 103 mmol/L (98-107); Glucose 111 mg/dL (65-115); Osmolality Calculated 294 mOsm/kg (285-295); Potassium 4.3 mmol/L (3.5-5.1); Sodium 143 mmol/L (136-145)
[2019-10-26] MEDS: labetalol 5 mg/mL SDV 20mL 10 MG IVP (22:12)
[2019-10-27] VITALS (44 sets, daily range): BP systolic 117–186; BP diastolic 41–98; PULSE 65–100; RESP 12–33; TEMP 36.8–37.6; O2SAT 93–98
[2019-10-27] MEDS: bumetanide 0.25 mg/mL SDV 10 mL 2 MG IV ×3 (00:26→17:01)
--- NOTE | 2019-10-27 05:00 | XR_ITS ---
WS: [id number] CHEST XRAY TECHNIQUE: Portable chest. CLINICAL INFORMATION: Respiratory failure COMPARISON: October 25, 2019 FINDINGS: Endotracheal tube tip above the malaika. Enteric tube tip below the diaphragm. Sternotomy. R ight PICC line with tip in the right atrium. Heart: Cardiomegaly. Lungs: Small bilateral pleural effusions. Chronic emphysematous changes. No focal pneumonia. Bones: Normal visualized bony structures. XR/XR chest 1V portable [id number] IMPRESSION: 1. Cardiomegaly with small bilateral pleural effusions. No focal pneumonia. 2. No significant changes since October 25, 2019
[2019-10-27 05:12] LABS: Basophils # 0.1 10^3/uL (0.0-0.1); Basophils % 0.5 %; Eosinophils # 0.1 10^3/uL (0.0-0.8); Eosinophils % 1.1 %; Hematocrit 31.9 % (37.0-47.0); Hemoglobin 9.9 g/dL (11.5-15.3); Mean Corpuscular Hemoglobin 30.5 pg (28.0-34.0); Mean Corpuscular Volume 98.2 fL (81-99); Mean Platelet Volume 10.5 fL (7.4-10.4); Monocytes # 1.8 10^3/uL (0.2-0.9); Monocytes % 14.9 %; Neutrophils # 8.7 10^3/uL (1.8-7.7); Neutrophils % 70.6 %; Nucleated Red Blood Cells % 0 %; Platelet Count 127 10^3/cmm (130-400); Red Blood Count 3.25 10^6/uL (4.1-5.3); White Blood Count 12.3 10^3/uL (4.0-10.0)
[2019-10-27 05:25] LABS: Alanine Aminotransferase 47 U/L (0-33); Albumin Level 2.3 g/dL (3.5-5.2); Alkaline Phosphatase 185 IU/L (35-105); Anion Gap 18.2 (5-19); Blood Urea Nitrogen 46 mg/dL (8-23); Calcium 8.3 mg/dL (8.5-10.5); Carbon Dioxide 22 mmol/L (22-29); Chloride 106 mmol/L (98-107); Globulin 3.3 g/dL (1.3-4.6); Glucose 125 mg/dL (65-115); Osmolality Calculated 293 mOsm/kg (285-295); Potassium 4.2 mmol/L (3.5-5.1); Sodium 142 mmol/L (136-145); Total Bilirubin 0.4 mg/dL (0.15-1.2); Total Protein 5.6 g/dL (6.6-8.7)
[2019-10-27 05:38] LABS: NT Pro B Type Natriuretic Pept 6830 pg/mL (0-125)
[2019-10-27 05:50] LABS: Aspartate Amino Transferase 59 U/L (0-32)
--- NOTE | 2019-10-27 06:41 | PM.PN ---
Subjective Subjective: Interval history: Uneventful night. No arrhythmias. Vital signs stable. Remains sedated Medications: Reviewed: Yes Vitals/I&O/Wt Last Vital Signs Temp 98.3 F 10/27/19 00:00 Pulse 82 10/27/19 06:00 Resp 12 10/27/19 06:00 BP 155/73 10/27/19 06:00 Pulse Ox 96 10/27/19 06:00 10/26/19 10/26/19 10/27/19 14:59 22:59 06:59 Intake Total 210 / 210 Output Total 625 / 625 150 / 775 1999 Balance -625 / -625 -150 / -775 -1790 / -2565 Weight last 48 hrs Weight 193 lb 6.4 oz Weight 210 lb 12.8 oz Physical Exam Chest: COMMONS NORMALS: normal inspection of the chest (Sternotomy incision clean and dry. Chest wall stable. Drain sites well approximated.) and normal palpation of entire chest wall (Sternotomy incision remains intact, clean and dry. ) Resp: COMMON NORMALS: clear to auscultation bilaterally AUSCULTATION: clear to auscultation bilaterally and rales (Slightly posteriorly) Extremity: GENERAL: Yes edema (Improving) Urinary Catheter Management^: Mccabe: Cath Placed During This Visit: yes Reason for Continuing Indwelling Catheter: Accurate Measurement of Urinary Output in Critically Ill Patients Urinary Catheter Date of Insertion: 10/17/19 Urinary Catheter Time of Insertion: 08:12 Data : 10/27/19 04:43 10/27/19 04:43 A&P Assessment and plan (1) S/P AVR (aortic valve replacement): Protracted postop course status post AVR with mental status changes, slowly improving. Volume overload, much improved Greatly appreciate the expertise of Dr. Pro, Dr. Vasquez, and Dr. Deluca and the entire nursing team Status: Acute Attestations Medical Necessity Statement*: Status post aVR Time Spent in Patient Care: less than 15 minutes Coding Level of Care Code Acute Quality Assurance Nurse for Chg Fwd Diagnoses S/P AVR (aortic valve replacement) Z95.2
[2019-10-27] MEDS: pantoprazole DR 40 mg Tablet NG-TUBE (08:13)
[2019-10-27] MEDS: metOLazone 5 MG Tablet 2.5 MG PO ×2 (08:13→17:02)
[2019-10-27] MEDS: gabapentin 100 mg Capsule PO (08:13)
[2019-10-27] MEDS: venlafaxine ER (24HR) 150 mg Capsule PO (08:13)
[2019-10-27] MEDS: amlodipine 5 mg Tablet PO (08:13)
[2019-10-27] MEDS: aspirin 81 mg Chew Tablet PO (08:13)
[2019-10-27] MEDS: labetalol 5 mg/mL SDV 20mL 10 MG IVP (08:15)
[2019-10-27] MEDS: chlorhexidine gluconate 0.12% Btl 473 mL 15 ML MUCOUS MEM ×2 (08:20→18:40)
[2019-10-27] MEDS: levofloxacin-dextrose 5 % 750 MG/150 ML PREMIX 100 MG IV (09:53)
[2019-10-27] MEDS: morphine 4 mg/mL SDV 1 mL 2 MG IVP (09:54)
[2019-10-27] MEDS: metoprolol tartrate 25 mg Tablet 12.5 MG PO (09:54)
[2019-10-27 10:29] LABS: Glucose Point of Care 140 mg/dL (70-110)
[2019-10-27] MEDS: sodium chloride 0.9% (100 ml) 100 ML 10 ML (11:30)
[2019-10-27 11:32] LABS: Glucose Point of Care 188 mg/dL (70-110)
--- NOTE | 2019-10-27 11:49 | PC.NURSE ---
Morphine given to help for comfort.
--- NOTE | 2019-10-27 16:19 | PM.PN ---
Subjective Subjective: Interval history: The patient was seen and examined. She seems to be doing better today. The patient is responsive following commands. Currently on pressure support ventilation 10/5 with a tidal volume around 300. The patient is diuresing well. Today she got out of bed and sat in a chair and did well. Medications: Reviewed: Yes Vitals/I&O/Wt Last Vital Signs Temp 98.9 F 10/27/19 12:00 Pulse 86 10/27/19 14:00 Resp 17 10/27/19 15:28 BP 139/54 10/27/19 14:00 Pulse Ox 93 10/27/19 14:00 10/27/19 10/27/19 10/27/19 06:59 14:59 22:59 Intake Total 210 / 210 Output Total 1999 / 2775 950 / 950 Balance -1790 / -2565 -950 / -950 Weight last 48 hrs Weight 189 lb 12.8 oz Weight 193 lb 6.4 oz Weight 210 lb 12.8 oz Physical Exam Narrative: EXAM NARRATIVE: General: The patient is intubated and sedated. HEENT: No gaze preference Respiratory: Crackles at the bases Cardiovascular: Regular rate and rhythm, S1-S2 present, no murmur, improved bilateral peripheral edema Abdomen: Soft, nondistended, positive bowel sounds Skin: No rash, no evidence of erythema nodosum or multiforme. Neuro: Patient is following commands and moving all extremities Urinary Catheter Management^: Mccabe: Cath Placed During This Visit: yes Reason for Continuing Indwelling Catheter: Accurate Measurement of Urinary Output in Critically Ill Patients Urinary Catheter Date of Insertion: 10/17/19 Urinary Catheter Time of Insertion: 08:12 Data : 10/27/19 04:43 10/27/19 04:43 Other data: I have reviewed the patient laboratory, microbiologic and renal data. Leukocytosis is getting better. The creatinine is stable. Chest x-ray this morning revealed mild right-sided pleural effusion with possible atelectasis per A&P Assessment and plan (1) Acute respiratory failure with hypoxia: We will continue aggressive diuresis. The plan is to extubate her tomorrow morning to BiPAP. The patient is receiving Levaquin for the Serratia pneumonia. The patient tidal volume is acceptable with a pressure support ventilation 10/5. The most important thing tomorrow is going to be having a good mental status. Status: Acute (2) Acute kidney injury: Creatinine stable. We will continue with diuresis. Status: Acute (3) Transaminitis: The congestive hepatopathy is resolving with diuresis. The ALT and AST is trending down. Status: Acute (4) CVA (cerebral vascular accident): No significant limitation of movement at this time. The patient will need significant physical therapy in the future. Status: Acute Qualifiers: CVA mechanism: other Qualified Code(s): I63.89 - Other cerebral infarction (5) Aortic stenosis, severe: Going to increase metoprolol 25 twice daily. The patient will require good control of blood pressure prior to extubation. Status: Acute Attestations Medical Necessity Statement*: Will defer to the primary team Coding Level of Care Code Acute Director Business for 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 Diagnoses Acute respiratory failure with hypoxia J96.01 Acute kidney injury N17.9 Transaminitis R74.0 CVA (cerebral vascular accident) I63.89 CVA mechanism: other Aortic stenosis, severe I35.0
[2019-10-27 16:48] LABS: Glucose Point of Care 124 mg/dL (70-110)
[2019-10-27] MEDS: enoxaparin 40 mg/0.4 mL Syringe SUBCUT (17:02)
[2019-10-27] MEDS: metoprolol tartrate 25 mg Tablet PO (17:02)
--- NOTE | 2019-10-27 17:37 | PM.PN ---
Subjective Subjective: Interval history: Following command. Weaning trial suggested most likely extubation tomorrow Medications: Reviewed: Yes Vitals/I&O/Wt Last Vital Signs Temp 98.9 F 10/27/19 12:00 Pulse 86 10/27/19 14:00 Resp 14 10/27/19 17:12 BP 139/54 10/27/19 14:00 Pulse Ox 93 10/27/19 14:00 10/27/19 10/27/19 10/27/19 06:59 14:59 22:59 Intake Total 210 / 210 Output Total 1999 950 / 950 Balance -1790 / -2565 -950 / -950 Weight last 48 hrs Weight 189 lb 12.8 oz Weight 193 lb 6.4 oz Weight 210 lb 12.8 oz Physical Exam Narrative: EXAM NARRATIVE: GENERAL: Patient is sedated but open her eye on command did not squeeze my hand NECK: No jugular vein distension. HEENT: No cyanosis. No icterus. No pallor. HEART: Regular S1 and S2. No murmur, rub or gallop. LUNGS: Clear to auscultate bilaterally. ABDOMEN: Soft, nontender and nondistended. Positive bowel sounds. No guarding, rebound or tenderness. CENTRAL NERVOUS SYSTEM: Cannot be examined fully due to sedation EXTREMITIES: Lower extremities without edema bilaterally. Urinary Catheter Management^: Mccabe: Cath Placed During This Visit: yes Reason for Continuing Indwelling Catheter: Accurate Measurement of Urinary Output in Critically Ill Patients Urinary Catheter Date of Insertion: 10/17/19 Urinary Catheter Time of Insertion: 08:12 Data : 10/27/19 04:43 10/27/19 04:43 A&P Assessment and plan (1) CVA (cerebral vascular accident): Continue physical therapy, continue following with neurology Status: Acute Qualifiers: CVA mechanism: other Qualified Code(s): I63.89 - Other cerebral infarction (2) S/P AVR (aortic valve replacement): Stable from cardiovascular perspective continue current regimen Status: Acute (3) HTN (hypertension): Well-controlled. Status: Acute Qualifiers: Hypertension type: essential hypertension Qualified Code(s): I10 - Essential (primary) hypertension Attestations Medical Necessity Statement*: Require continuation hospitalization for above defined care. Coding Level of Care Code Established Pt Acute Chief Lock Tender Operator for Chg Fwd Patient Type Established History Expanded Problem Focused Exam Expanded Problem Focused Medical Decision Making Moderate Complexity Diagnoses CVA (cerebral vascular accident) I63.89 CVA mechanism: other S/P AVR (aortic valve replacement) Z95.2 HTN (hypertension) I10 Hypertension type: essential hypertension
--- NOTE | 2019-10-27 18:00 | P.PN_ITS ---
Subjective Subjective: Interval history: Following command. Continues to undergo weaning trial this morning. Medications: Reviewed: Yes Vitals/I&O/Wt Last Vital Signs Temp 98.7 F 10/27/19 16:00 Pulse 81 10/27/19 17:30 Resp 14 10/27/19 17:12 BP 131/53 10/27/19 17:30 Pulse Ox 97 10/27/19 17:30 10/27/19 10/27/19 10/27/19 06:59 14:59 22:59 Intake Total 210 / 210 104 / 104 Output Total 1999 / 2774 950 / 950 125 / 1075 Balance -1790 / -2565 -950 / -950 -21 / -971 Weight last 48 hrs Weight 86.092 kg Weight 87.725 kg Weight 95.617 kg Physical Exam Narrative: EXAM NARRATIVE: GEN: Follow simple commands while intubated. HEENT: ETT, NG in place CVS: S1S2 N RS: B/l scattered wheezing+ Abd: Soft, nt/nd , bs+ Urinary Catheter Management^: Mccabe: Cath Placed During This Visit: yes Reason for Continuing Indwelling Catheter: Accurate Measurement of Urinary Output in Critically Ill Patients Urinary Catheter Date of Insertion: 10/17/19 Urinary Catheter Time of Insertion: 08:12 Data : 10/27/19 04:43 10/27/19 04:43 A&P Assessment and plan (1) Status post aortic valve replacement with bioprosthetic valve: Postop day #9 aortic valve replacement with bioprosthetic valve performed by Dr. Luciano on October 17 Remains intubated secondary to concerns with mental status changes. Attempted extubation on October 24 however patient developed flash pulmonary edema after which she needed to be reintubated within about 45 minutes. Currently being diuresed with Bumex and being optimized prior to reattempting. Status: Acute (2) Chronic obstructive pulmonary disease, unspecified: Concern of ventilator associated pneumonia during this hospital stay with fever. She was placed on Levaquin, cefepime and vancomycin. Sputum culture has grown Serratia. No evidence of COPD exacerbation Abx day 4 today, no current lung infiltrates on CXR Status: Acute (3) Bipolar affective disorder: Continue home medications Status: Acute (4) HTN (hypertension): Continue Norvasc , hydralazine Discontinue carvedilol as currently on labetalol Losartan discontinued secondary to renal function Status: Acute Qualifiers: Hypertension type: essential hypertension Qualified Code(s): I10 - Essential (primary) hypertension (5) CVA (cerebral vascular accident): Acute left MCA CVA, noted following aortic valve replacement. Previously done documented no carotid artery stenosis. Goal blood pressure is 140, to 150 neurology has been consulted. Continue aspirin. Continue statin. MOISE without obvious thrombus Status: Acute Qualifiers: CVA mechanism: other Qualified Code(s): I63.89 - Other cerebral infarction (6) Pulmonary edema: Status: Acute Additional A&P Information Anemia, hemoglobin currently stable Thrombocytopenia. This appears to be improving. Acute on chronic renal failure, creatinine improved. Continue Mccabe. Transaminitis. Ammonia level normal. RUQ USG without acute pathology. Hepatitis serology negative for acute hepatitis. May be related to propofol, which which has been discontinued. Also possible congestive hepatopathy GI prophylaxis, Protonix Tube feeding diet Full code DVt ppx: lovenox Updates discussed with sister Pearl Edwards Medical Necessity Statement*: Ongoing dependence on mechanical ventilation. Coding Level of Care Code Acute Wedding Photographer for Chg Fwd Diagnoses Status post aortic valve replacement with bioprosthetic valve Z95.3 Chronic obstructive pulmonary disease, unspecified J44.9 Bipolar affective disorder F31.9 HTN (hypertension) I10 Hypertension type: essential hypertension CVA (cerebral vascular accident) I63.89 CVA mechanism: other Pulmonary edema J81.1
[2019-10-27] MEDS: piperacillin-tazobactam 3.375 GM in sodium chloride 0.9% (plus) 50 ML IV (18:26)
[2019-10-27 18:34] LABS: Anion Gap 14.7 (5-19); Blood Urea Nitrogen 44 mg/dL (8-23); Calcium 8.6 mg/dL (8.5-10.5); Carbon Dioxide 28 mmol/L (22-29); Chloride 102 mmol/L (98-107); Glucose 130 mg/dL (65-115); Magnesium 2.1 mg/dL (1.7-2.3); Osmolality Calculated 292 mOsm/kg (285-295); Phosphorus 3.4 mg/dL (2.5-4.5); Potassium 3.7 mmol/L (3.5-5.1); Sodium 141 mmol/L (136-145)
--- NOTE | 2019-10-27 19:10 | PC.NURSE ---
pt aggitated, messaged Dr. Dumont regarding breathing above the vent, needing pain medications. Also no documented stool for days.
[2019-10-27] MEDS: potassium chloride premix 40 MEQ/100 ML PREMIX 25 MEQ IV (20:52)
[2019-10-27 21:00] LABS: Glucose Point of Care 133 mg/dL (70-110)
[2019-10-28] VITALS (29 sets, daily range): BP systolic 100–152; BP diastolic 44–78; PULSE 63–75; RESP 12–27; TEMP 36.6–37.1; O2SAT 94–100
[2019-10-28] MEDS: piperacillin-tazobactam 3.375 GM in sodium chloride 0.9% (plus) 50 ML IV ×3 (02:34→18:28)
[2019-10-28] MEDS: dexmedetomidine 400 MCG in sodium chloride 0.9% (100 ml) 100 ML 8 MCG IV (04:04)
[2019-10-28 04:14] LABS: ABG PCO2 35.4 mmHg (35-45); ABG PH Result 7.53 (7.35-7.45); Arterial Blood Gas Hematocrit 27.7 % (37-47); Base Excess ABG 6.8 mmol/L (-2.0-2.0); Blood Gas Allen Test Pos; Blood Gas Sample Site Radial, right; Blood Gas Sample Type Arterial; HCO3 ABG 29.8 mmol/L (22-26); Oxygen Device VENT; PO2 ABG 64.8 mmHg (80.0-100.0)
[2019-10-28 04:16] LABS: Blood Gas Tidal Volume 0.4
[2019-10-28] MEDS: metoprolol tartrate 25 mg Tablet PO (04:50)
--- NOTE | 2019-10-28 07:35 | PC.NURSE ---
anxious respiratory rate noted in the 40s. suctioning was provided.
[2019-10-28 07:38] LABS: Glucose Point of Care 124 mg/dL (70-110)
--- NOTE | 2019-10-28 08:14 | XR_ITS ---
WS: [id number] CHEST XRAY TECHNIQUE: Portable chest. CLINICAL INFORMATION: respiratory failure COMPARISON: October 27, 2019 FINDINGS: ETT with tip above the malaika. Enteric tube with tip below the diaphragm. Right PICC line w ith tip in the right atrium. Heart: Cardiomegaly. Lungs: Small right pleural effusion. Bibasilar atelectasis. Right pleural effusion stable. Trace left pleural fluid. Bones: Normal visualized bony structures. XR/XR chest 1V portable [id number] IMPRESSION: 1. Endotracheal tube with tip above the malaika. 2. Enteric tube with tip below the diaphragm. 3. Cardiomegaly. 4. Small right pleural effusion with right basilar atelectasis appears unchang ed. Trace left pleural fluid. 5. Stable right PICC line.
--- NOTE | 2019-10-28 08:22 | PM.PN ---
Subjective Subjective: Interval history: Patient was seen and examined this morning. The patient is following commands moving all extremities. Currently she is on pressure support ventilation. Good oxygenation. The tidal volume is acceptable for height and weight. Patient diuresed well overnight. There is evidence of alkalosis likely secondary to the diuresis on the blood gas. The patient was seen multiple times over hours in the morning. The patient did well on pressure support ventilation and was extubated to BiPAP. Patient doing well post extubation. Medications: Reviewed: Yes Vitals/I&O/Wt Last Vital Signs Temp 98.8 F 10/28/19 08:01 Pulse 71 10/28/19 08:01 Resp 23 H 10/28/19 08:01 BP 117/52 10/28/19 08:01 Pulse Ox 96 10/28/19 08:01 10/27/19 10/28/19 10/28/19 22:59 06:59 14:59 Intake Total 154 / 154 741.208 / 895.208 128.8 / 128.8 Output Total 1650 / 2600 295 / 2895 Balance -1496 / -2446 446.208 / -1999.792 128.8 / 128.8 Weight last 48 hrs Weight 183 lb 14.4 oz Weight 189 lb 12.8 oz Physical Exam Narrative: EXAM NARRATIVE: General: The patient is intubated and minimally sedated HEENT: No gaze preference Respiratory: Reduced breath sound to the right lower lung base very posteriorly Cardiovascular: Regular rate and rhythm, S1-S2 present, no murmur, improved bilateral peripheral edema Abdomen: Soft, nondistended, positive bowel sounds Skin: No rash, no evidence of erythema nodosum or multiforme. Neuro: Patient is following commands and moving all extremities Urinary Catheter Management^: Mccabe: Cath Placed During This Visit: yes Reason for Continuing Indwelling Catheter: Accurate Measurement of Urinary Output in Critically Ill Patients Urinary Catheter Date of Insertion: 10/17/19 Urinary Catheter Time of Insertion: 08:12 Data : 10/28/19 09:25 10/27/19 16:52 Micro: Microbiology 10/27/19 11:20 Gram Stain - Final Sputum - Endotracheal Tube Aspirate Other data: I reviewed the chest x-ray that was obtained this morning. There is right-sided effusion. The lung volumes are small secondary to poor inspiratory effort. The patient was on pressure support ventilation at this time. A&P Assessment and plan (1) Acute respiratory failure with hypoxia: The patient has been optimized. She has been diuresed more than 20 pounds. Her pneumonia has been treated adequately with Levaquin and currently the patient is on Zosyn. The patient is on pressure support ventilation maintaining a tidal volume in mid 300s which is optimal for her weight and height. The patient was extubated to BiPAP. I am still waiting on the blood work. We will continue with gentle diuresis for the coming days. Status: Acute (2) Acute kidney injury: Creatinine has remained stable with diuresis. The patient has most likely developed some degree of contraction alkalosis with the diuresis. Going to give her a dose of Bumex and acetazolamide. Status: Acute (3) Transaminitis: Improving with diuresis. Status: Acute (4) CVA (cerebral vascular accident): The patient's mental status seem to be significantly better. She is following commands and able to respond appropriately. No focal weakness. However the patient has generalized weakness and will likely need extensive physical therapy post discharge. Status: Acute Qualifiers: CVA mechanism: other Qualified Code(s): I63.89 - Other cerebral infarction (5) Aortic stenosis, severe: Patient is being well controlled with metoprolol 25 mg twice daily. Status: Acute Attestations Medical Necessity Statement*: Will defer to the primary team Coding Level of Care Code Acute Certified Pedorthotist for logan Hernández Diagnoses Acute respiratory failure with hypoxia J96.01 Acute kidney injury N17.9 Transaminitis R74.0 CVA (cerebral vascular accident) I63.89 CVA mechanism: other Aortic stenosis, severe I35.0 Time Spent (min) 43 Comment Throughout the course of the morning
--- NOTE | 2019-10-28 08:40 | P.PN_ITS ---
Subjective Subjective: Interval history: Ventilator weaning trials continue. She is responsive and mostly appropriate Vitals/I&O/Wt Last Vital Signs Temp 98.8 F 10/28/19 08:01 Pulse 71 10/28/19 08:01 Resp 23 H 10/28/19 08:01 BP 117/52 10/28/19 08:01 Pulse Ox 96 10/28/19 08:01 10/27/19 10/28/19 10/28/19 22:59 06:59 14:59 Intake Total 154 / 154 741.208 / 895.208 128.8 / 128.8 Output Total 1650 / 2600 295 / 2895 Balance -1496 / -2446 446.208 / -1999.792 128.8 / 128.8 Weight last 48 hrs Weight 183 lb 14.4 oz Weight 189 lb 12.8 oz Physical Exam Chest: COMMONS NORMALS: normal inspection of the chest (Chest remained stable with incision intact) Resp: OTHER: Currently on spontaneous ventilation with pressure support with acceptable rate. Tidal volumes could be better but she does appear to intermittently increase upon command for deep breath Urinary Catheter Management^: Mccabe: Cath Placed During This Visit: yes Reason for Continuing Indwelling Catheter: Accurate Measurement of Urinary Output in Critically Ill Patients Urinary Catheter Date of Insertion: 10/17/19 Urinary Catheter Time of Insertion: 08:12 Data : 10/27/19 04:43 10/27/19 16:52 Micro: Microbiology 10/27/19 11:20 Gram Stain - Final Sputum - Endotracheal Tube Aspirate A&P Assessment and plan (1) S/P AVR (aortic valve replacement): Greatly appreciate all the expertise and efforts of pulmonology, critical care medicine, and our hospitalist colleagues as well as neurology and cardiology. Hopefully, will be able to extubate soon. Status: Acute Attestations Medical Necessity Statement*: Status post aVR with mental status changes and pulmonary failure Time Spent in Patient Care: 16 - 35 minutes Coding Level of Care Code Acute Renewable Energy Consultant for Chg Fwd Diagnoses S/P AVR (aortic valve replacement) Z95.2
[2019-10-28] MEDS: bumetanide 0.25 mg/mL SDV 10 mL 1 MG IV (08:44)
[2019-10-28] MEDS: venlafaxine ER (24HR) 150 mg Capsule PO (08:48)
[2019-10-28] MEDS: gabapentin 100 mg Capsule PO (08:48)
[2019-10-28] MEDS: aspirin 81 mg Chew Tablet PO (08:48)
[2019-10-28] MEDS: pantoprazole DR 40 mg Tablet NG-TUBE (08:48)
[2019-10-28] MEDS: amlodipine 5 mg Tablet PO (08:49)
[2019-10-28] MEDS: chlorhexidine gluconate 0.12% Btl 473 mL 15 ML MUCOUS MEM ×2 (08:49→18:07)
--- NOTE | 2019-10-28 09:24 | PC.NURSE ---
Surgical bra in place. Island dressing in place, dry, and intact.
--- NOTE | 2019-10-28 09:58 | PC.NURSE ---
Per Dr. Vasquez, patient is ready to extubate to BiPAP.
--- NOTE | 2019-10-28 10:05 | PC.SOCIAL ---
IMM Updated Page 2 of IMM updated and given to patient. Initialed, dated, and timed and placed back in chart.
[2019-10-28 10:14] LABS: Basophils % 0.3 %; Eosinophils # 0.3 10^3/uL (0.0-0.8); Eosinophils % 2.2 %; Hematocrit 30.9 % (37.0-47.0); Hemoglobin 9.3 g/dL (11.5-15.3); Lymphocytes # 1.1 10^3/uL (0.8-4.8); Lymphocytes % 8.6 %; Mean Corpuscular HGB Conc 30.1 g/dL (30.0-36.0); Mean Corpuscular Hemoglobin 29.6 pg (28.0-34.0); Mean Corpuscular Volume 98.4 fL (81-99); Mean Platelet Volume 10.1 fL (7.4-10.4); Monocytes # 1.7 10^3/uL (0.2-0.9); Monocytes % 12.9 %; Neutrophils # 9.3 10^3/uL (1.8-7.7); Neutrophils % 71.4 %; Nucleated Red Blood Cells % 0 %; Platelet Count 146 10^3/cmm (130-400); Red Blood Count 3.14 10^6/uL (4.1-5.3); White Blood Count 12.9 10^3/uL (4.0-10.0)
--- NOTE | 2019-10-28 10:15 | PC.NURSE ---
Addendum entered by Anila Pham RN 10/28/19 10:28: Restraints were removed. Patient tolerated well. Passive ROM performed. Original Note: Patient was extubated at 1005. Patient tolerated well. BiPAP is in place at 40%.
--- NOTE | 2019-10-28 10:18 | PC.RESP ---
extubated pt extubated to bipap. 01/[address]. Vasquez at bedside
[2019-10-28 10:28] LABS: Alanine Aminotransferase 34 U/L (0-33); Albumin Level 2.8 g/dL (3.5-5.2); Alkaline Phosphatase 168 IU/L (35-105); Anion Gap 15.6 (5-19); Aspartate Amino Transferase 40 U/L (0-32); Blood Urea Nitrogen 49 mg/dL (8-23); Calcium 8.4 mg/dL (8.5-10.5); Carbon Dioxide 27 mmol/L (22-29); Chloride 103 mmol/L (98-107); Globulin 3.1 g/dL (1.3-4.6); Glucose 120 mg/dL (65-115); Magnesium 2.2 mg/dL (1.7-2.3); Osmolality Calculated 293 mOsm/kg (285-295); Phosphorus 3.3 mg/dL (2.5-4.5); Potassium 3.6 mmol/L (3.5-5.1); Sodium 142 mmol/L (136-145); Total Bilirubin 0.5 mg/dL (0.15-1.2); Total Protein 5.9 g/dL (6.6-8.7)
--- NOTE | 2019-10-28 10:54 | PC.NURSE ---
Wasted 80cc of Fentanyl. Witnessed by Juanita Terrell RN.
[2019-10-28 11:08] LABS: Glucose Point of Care 125 mg/dL (70-110)
--- NOTE | 2019-10-28 11:56 | PM.PN ---
Subjective Subjective: Interval history: extubated to bipap this morning. Doing well post extubation. Abx xhanged to zosyn yesterday due to c/f aspiration pneumonia, rising Wbc and low gr temp elevation. Medications: Reviewed: Yes Medication Review Details: Postop day #8 status post AVR with postop mental status changes. Greatly appreciate the expertise and oversight of our hospitalist, cardiology, and pulmonary services. Underwent 3 L diuresis past 24 hours with improved radiographic appearance MOISE yesterday morning by Dr. Deluca revealed appropriate prosthetic valve function without evidence for perivalvular leak, vegetation, or intracavitary thrombus It appears Ms. Brasher became the intravascular volume overloaded as she recollected her third spaced fluid over the past several days. Nice diuresis has occurred. Vitals/I&O/Wt Last Vital Signs Temp 98.6 F 10/28/19 11:09 Pulse 70 10/28/19 11:09 Resp 23 H 10/28/19 11:09 BP 134/59 10/28/19 11:09 Pulse Ox 96 10/28/19 11:09 10/27/19 10/28/19 10/28/19 22:59 06:59 14:59 Intake Total 154 / 154 791.208 / 945.208 107.592 / 107.592 Output Total 1650 / 2600 295 / 2895 750 / 750 Balance -1496 / -2446 496.208 / -1949.792 -642.408 / -642.408 Weight last 48 hrs Weight 83.416 kg Weight 86.092 kg Physical Exam Narrative: EXAM NARRATIVE: GEN: Awake, alert and oriented HEENT: on Bipap CVS: S1S2 N RS: CTA B/L Abd: Soft, nt/nd , bs+ Urinary Catheter Management^: Mccabe: Cath Placed During This Visit: yes Reason for Continuing Indwelling Catheter: Accurate Measurement of Urinary Output in Critically Ill Patients Urinary Catheter Date of Insertion: 10/17/19 Urinary Catheter Time of Insertion: 08:12 Data : 10/28/19 09:25 10/28/19 09:25 Micro: Microbiology 10/27/19 11:20 Gram Stain - Final Sputum - Endotracheal Tube Aspirate Sputum Culture - Preliminary A&P Assessment and plan (1) Status post aortic valve replacement with bioprosthetic valve: Postop day #9 aortic valve replacement with bioprosthetic valve performed by Dr. Luciano on October 17 Remains intubated secondary to concerns with mental status changes. Attempted extubation on October 24 however patient developed flash pulmonary edema after which she needed to be reintubated within about 45 minutes. Currently being diuresed with Bumex and being optimized prior to reattempting. Status: Acute (2) Chronic obstructive pulmonary disease, unspecified: Concern of ventilator associated pneumonia during this hospital stay with fever. She was placed on Levaquin, cefepime and vancomycin. Sputum culture has grown Serratia. No evidence of COPD exacerbation Abx day 4 today, no current lung infiltrates on CXR Status: Acute (3) Bipolar affective disorder: Continue home medications Status: Acute (4) HTN (hypertension): Continue Norvasc , hydralazine Discontinue carvedilol as currently on labetalol Losartan discontinued secondary to renal function Status: Acute Qualifiers: Hypertension type: essential hypertension Qualified Code(s): I10 - Essential (primary) hypertension (5) CVA (cerebral vascular accident): Acute left MCA CVA, noted following aortic valve replacement. Previously done documented no carotid artery stenosis. Goal blood pressure is 140, to 150 neurology has been consulted. Continue aspirin. Continue statin. MOISE without obvious thrombus Status: Acute Qualifiers: CVA mechanism: other Qualified Code(s): I63.89 - Other cerebral infarction (6) Pulmonary edema: Status: Acute Additional A&P Information Anemia, hemoglobin currently stable Thrombocytopenia. This appears to be improving. Acute on chronic renal failure, creatinine improved. Continue Mccabe. Transaminitis. Ammonia level normal. RUQ USG without acute pathology. Hepatitis serology negative for acute hepatitis. May be related to propofol, which which has been discontinued. Also possible congestive hepatopathy GI prophylaxis, Protonix Tube feeding diet Full code DVt ppx: lovenox Updates discussed with sister Pearl Edwards Medical Necessity Statement*: post extubation, monitoring respiratory status Coding Level of Care Code Acute Iuss Acoustic Analyst for Chg Fwd Diagnoses Status post aortic valve replacement with bioprosthetic valve Z95.3 Chronic obstructive pulmonary disease, unspecified J44.9 Bipolar affective disorder F31.9 HTN (hypertension) I10 Hypertension type: essential hypertension CVA (cerebral vascular accident) I63.89 CVA mechanism: other Pulmonary edema J81.1
--- NOTE | 2019-10-28 12:44 | PC.NURSE ---
Wound dressing on chest was changed. Wound was cleaned with betadine. Drainage was not noted. No redness at site. Patient tolerated dressing change well. Wound dressings on abdomen was changed. Wounds were cleaned with betadine. Left abdomen wound had palm size area of minimal bruising around site. No redness at site. Drainage was not noted. Patient tolerated dressing changes well.
[2019-10-28] MEDS: enoxaparin 40 mg/0.4 mL Syringe SUBCUT (14:44)
--- NOTE | 2019-10-28 15:13 | P.PN_ITS ---
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 Greatly appreciate the expertise and oversight of our hospitalist, cardiology, and pulmonary services. Underwent 3 L diuresis past 24 hours with improved radiographic appearance MOISE yesterday morning by Dr. Deluca revealed appropriate prosthetic valve function without evidence for perivalvular leak, vegetation, or intracavitary thrombus It appears Ms. Brasher became the intravascular volume overloaded as she recollected her third spaced fluid over the past several days. Nice diuresis has occurred. Vitals/I&O/Wt Last Vital Signs Temp 97.9 F 10/28/19 14:54 Pulse 66 10/28/19 14:54 Resp 27 H 10/28/19 14:54 BP 146/69 10/28/19 14:54 Pulse Ox 99 10/28/19 14:54 10/28/19 10/28/19 10/28/19 06:59 14:59 22:59 Intake Total 791.208 / 945.208 107.592 / 107.592 Output Total 295 / 2895 1090 / 1090 Balance 496.208 / -1949.792 -982.408 / -982.408 Weight last 48 hrs Weight 183 lb 14.4 oz Weight 189 lb 12.8 oz Physical Exam Narrative: EXAM NARRATIVE: GENERAL: Patient open her eye on command did not squeeze my hand NECK: No jugular vein distension. HEENT: No cyanosis. No icterus. No pallor. HEART: Regular S1 and S2. No murmur, rub or gallop. LUNGS: Clear to auscultate bilaterally. ABDOMEN: Soft, nontender and nondistended. Positive bowel sounds. No guarding, rebound or tenderness. 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 Urinary Catheter Management^: Mccabe: Cath Placed During This Visit: yes Reason for Continuing Indwelling Catheter: Accurate Measurement of Urinary Output in Critically Ill Patients Urinary Catheter Date of Insertion: 10/17/19 Urinary Catheter Time of Insertion: 08:12 Data : 10/28/19 09:25 10/28/19 09:25 Micro: Microbiology 10/27/19 11:20 Gram Stain - Final Sputum - Endotracheal Tube Aspirate Sputum Culture - Preliminary A&P Assessment and plan (1) S/P AVR (aortic valve replacement): Status post AVR complicated with stroke transesophageal echocardiogram did not show thromboembolic source for the stroke, continue to monitor continue current regimen Status: Acute (2) Pulmonary edema: Improved on BiPAP, continue as per pulmonology Status: Acute (3) CVA (cerebral vascular accident): As per neurology Status: Acute Qualifiers: CVA mechanism: other Qualified Code(s): I63.89 - Other cerebral infarction Additional A&P Information Continue to follow. No changes today. Attestations Medical Necessity Statement*: Patient require continuation hospitalization for above defined care. Coding Level of Care Code Established Pt Acute Splicing Supervisor for 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 Patient Type Established History Expanded Problem Focused Exam Expanded Problem Focused Medical Decision Making Moderate Complexity Diagnoses S/P AVR (aortic valve replacement) Z95.2 Pulmonary edema J81.1 CVA (cerebral vascular accident) I63.89 CVA mechanism: other
--- NOTE | 2019-10-28 16:30 | PC.NURSE ---
Nursing dysphagia test done, 15mL water given. Patient did not tolerate well, patient choked. Attempted a second time without success. Patient was taken off of BiPAP to 4L NC, O2 stats 99%.
[2019-10-28] MEDS: metoprolol tartrate 1 mg/1 mL SDV 5 mL 2.5 MG IV (17:16)
--- NOTE | 2019-10-28 17:30 | PC.NURSE ---
Patient able to bilaterally lift arms, but is weak. Hand provider network manager are bilateral, but weak. Patient is able to move toes on both feet, but bilateral leg movements are weak. Patient was able to sit on the side of the bed for 5mins. Patient is able to nod yes or no to questions. Bed changed was completed. Patient is on 2L NC at O2 stat 98%.
--- NOTE | 2019-10-28 18:44 | PC.NURSE ---
End of shift summary Patient was extubated at 1005, tolerated well. BiPAP was placed by GISSELLE Bruno, and patient tolerated well. Nursing dysphagia test completed, 15mL water given, patient did not tolerate well and began to choke. Second test was unsuccessful. BiPAP was taken off, patient tolerated well, 4L NC placed O2 stats 99%. PO metoprolol was changed to IV 2.5mg Q12H, Dr. Pro approved. 2L NC placed, O2 stats 98%. Patient was able to lift arms bilaterally, but is weak. Bilateral hand word processing operator slightly weak. Patient could move toes on both feet, but bilateral leg movements are weak. Patient has an intermittent cough that is productive, patient unable to clearly expel mucous, suction used. Patient was able to sit on the side of the bed with assistance, stayed sitting up for 5mins. Patient is able to nod yes or no to questions and is somewhat able to communicate needs.
[2019-10-28 19:25] LABS: Glucose Point of Care 113 mg/dL (70-110)
[2019-10-28 20:39] LABS: Glucose Point of Care 108 mg/dL (70-110)
[2019-10-29] VITALS (22 sets, daily range): BP systolic 138–178; BP diastolic 55–87; PULSE 74–91; RESP 16–28; TEMP 36.6–36.9; O2SAT 92–100
[2019-10-29] MEDS: piperacillin-tazobactam 3.375 GM in sodium chloride 0.9% (plus) 50 ML IV ×3 (02:08→17:41)
[2019-10-29] MEDS: metoprolol tartrate 1 mg/1 mL SDV 5 mL 2.5 MG IV (05:13)
--- NOTE | 2019-10-29 07:00 | P.PN_ITS ---
Subjective Subjective: Interval history: Rested well last night. Remains on BiPAP. Vital signs stable. Still a bit hypertensive but much better controlled. Moving extremities to command. Still rather lethargic. She still has a modest right pleural effusion upon my review of the chest x-ray from yesterday. Vitals/I&O/Wt Last Vital Signs Temp 98.5 F 10/29/19 04:03 Pulse 83 10/29/19 06:03 Resp 22 H 10/29/19 06:03 BP 154/65 10/29/19 06:03 Pulse Ox 98 10/29/19 06:03 10/28/19 10/29/19 10/29/19 22:59 06:59 14:59 Intake Total 50 / 207.592 Output Total 655 / 1745 615 / 2360 Balance -605 / -1537.408 -615 / -2152.408 Weight last 48 hrs Weight 176 lb 14.4 oz Weight 183 lb 14.4 oz Weight 189 lb 12.8 oz Physical Exam Chest: COMMONS NORMALS: normal inspection of the chest (Dressings remain in place. Nursing service reports incision line remains clean, intact, and dry.) and normal palpation of entire chest wall (Chest wall is stable.) Cardio: COMMON NORMALS: regular rate, regular rhythm, S1 normal heart sound present and No murmurs present (Cardio) RATE: regular rate RHYTHM: regular rhythm HEART SOUNDS: S1 normal heart sound present Extremity: OTHER: There still is a bit of edema though this is clearly much improved after the substantial diuresis over the past 72 hours. Urinary Catheter Management^: Mccabe: Cath Placed During This Visit: yes Reason for Continuing Indwelling Catheter: Accurate Measurement of Urinary Output in Critically Ill Patients Urinary Catheter Date of Insertion: 10/17/19 Urinary Catheter Time of Insertion: 08:12 Data : 10/28/19 09:25 10/28/19 09:25 Micro: Microbiology 10/27/19 11:20 Gram Stain - Final Sputum - Endotracheal Tube Aspirate Sputum Culture - Preliminary A&P Assessment and plan (1) S/P AVR (aortic valve replacement): Status post AVR with mental status changes and pulmonary failure and volume overload, overall substantially improved. Modest right pleural effusion remains. If her pulmonary status stalls, I will discuss with Dr. Vasquez concerning thoracentesis for this fluid. Recommend continue meticulous wound care and sternal precautions. Status: Acute Attestations 2 Medical Necessity Statement*: Status post aVR with mental status changes and pulmonary failure, improved Time Spent in Patient Care: 16 - 35 minutes Coding Level of Care Code Acute Helper Maintenance Cleaning for Chg Fwd Diagnoses S/P AVR (aortic valve replacement) Z95.2
[2019-10-29 07:26] LABS: Glucose Point of Care 117 mg/dL (70-110)
--- NOTE | 2019-10-29 08:36 | PM.PN ---
Subjective Subjective: Interval history: Audiology coverage patient has poor verbal communication. Status post AVR, status post TIA Status post pulmonary edema, following the surgery Patient seems to be recuperating somewhat slowly No fever or chills. No significant arrhythmias on the monitor. No other specific complaints. History of severe depression and? Bipolar disorder Medications: Reviewed: Yes Medication Review Details: Current Medications Amlodipine Besylate (Norvasc) 5 mg PO DAILY [facility] [place] Last Admin: 10/28/19 08:49 Dose: 5 mg Documented by: Aspirin (Aspirin Chewable) 81 mg PO DAILY [facility] [place] Last Admin: 10/28/19 08:48 Dose: 81 mg Documented by: Atorvastatin Calcium (Lipitor) 40 mg PO BEDTIME [facility] Last Admin: 10/24/19 20:44 Dose: 40 mg Documented by: Chlorhexidine Gluconate (Perigard) 15 ml MUCOUS MEM BID [facility] [place] Last Admin: 10/28/19 18:07 Dose: 1 dose Documented by: Enoxaparin Sodium (Lovenox) 40 mg SUBCUT Q24H [facility] [place] Last Admin: 10/28/19 14:44 Dose: 40 mg Documented by: Epinephrine (Vaponephrine) 0.5 ml INHALATION Q6H.RESPIRATORY PRN PRN Reason: Stridor Gabapentin (Neurontin) 100 mg PO DAILY [facility] [place] Last Admin: 10/28/19 08:48 Dose: 100 mg Documented by: Glucagon (Glucagen) 1 mg IM ONCE PRN; Protocol PRN Reason: Adult Acute Hypoglycemia Prot Labetalol HCl 300 mg/ Sodium (Chloride) 300 mls @ 0 mls/hr IV .Q0M PRN; Protocol PRN Reason: Blood Pressure Dexmedetomidine HCl 400 mcg/ (Sodium Chloride) 104 mls @ 0 mls/hr IV .Q0M PRN; Protocol PRN Reason: SEDATION Last Titration: 10/28/19 07:40 Dose: 0.6 mcg/kg/hr, 12 mls/hr Documented by: Piperacillin Sod/Tazobactam (Sod 3.375 gm/ Sodium Chloride) 50 mls @ 12.5 mls/hr IV Q8H [facility] [place]; Protocol Last Admin: 10/29/19 02:08 Dose: 12.5 mls/hr Documented by: Insulin Aspart (Novolog) 0 unit SUBCUT WM&BEDTIME [facility] [place]; Protocol Last Admin: 10/28/19 22:16 Dose: Not Given Documented by: Labetalol HCl (Trandate) 10 mg IVP Q6H PRN PRN Reason: HYPERTENSION Last Admin: 10/27/19 08:15 Dose: 10 mg Documented by: Metolazone (Zaroxolyn) 2.5 mg PO ONCE [facility] [place] Last Admin: 10/27/19 08:13 Dose: 2.5 mg Documented by: Metoprolol Tartrate (Metoprolol Tartrate) 2.5 mg IV Q12H [facility] [place] Last Admin: 10/29/19 05:13 Dose: 2.5 mg Documented by: Pantoprazole Sodium (Protonix) 40 mg NG-TUBE DAILY [facility] [place] Last Admin: 10/28/19 08:48 Dose: 40 mg Documented by: Venlafaxine HCl (Effexor Xr) 150 mg PO DAILY [facility] [place] Last Admin: 10/28/19 08:48 Dose: 150 mg Documented by: Vitals/I&O/Wt Last Vital Signs Temp 98.5 F 10/29/19 04:03 Pulse 83 10/29/19 06:03 Resp 22 H 10/29/19 06:03 BP 154/65 10/29/19 06:03 Pulse Ox 98 10/29/19 06:03 10/28/19 10/29/19 10/29/19 22:59 06:59 14:59 Intake Total 50 / 207.592 Output Total 655 / 1745 615 / 2360 Balance -605 / -1537.408 -615 / -2152.408 Weight last 48 hrs Weight 176 lb 14.4 oz Weight 183 lb 14.4 oz Weight 189 lb 12.8 oz Physical Exam Narrative: EXAM NARRATIVE: GENERAL: The patient is alert and oriented times three. Not in any acute distress. HEENT: No significant pallor, icterus or lymphadenopathy.Oral cavity: There are no mucous membrane lesions. NECK: Trachea appears to be central. No masses noted. No JVD or thyromegaly appreciated. RESPIRATORY: Chest is symmetrical. No intercostals muscle retraction or any accessory muscle activation. There is no chest wall tenderness. Breath sounds are heard bilaterally. No rales or rhonchi heard. No evidence of any consolidation. BREASTS: Deferred. HEART: The heart sounds are normal. No S3 or S4. Short systolic murmur at the base of the heart. No diastolic murmurs. No pericardial rub ABDOMEN: No vessel pulsations or distention. No tenderness. No organomegaly appreciated. Bowel sounds are normally heard. : Deferred. RECTAL: Deferred. LYMPHATIC: No lymphadenopathy noted in the neck . EXTREMITIES: Trace edema with no cyanosis MUSCULOSKELETAL: No acute joint deformities or swelling SKIN: There are no significant rashes or ecchymosis NEUROPSYCHIATRIC: The patient is alert and oriented x3. Appears to be in a good mood. No tremors or rigidity noted. Urinary Catheter Management^: Mccabe: Cath Placed During This Visit: yes Reason for Continuing Indwelling Catheter: Accurate Measurement of Urinary Output in Critically Ill Patients Urinary Catheter Date of Insertion: 10/17/19 Urinary Catheter Time of Insertion: 08:12 Data : 10/28/19 09:25 10/28/19 09:25 Other Labs: Laboratory Last Values WBC 12.9 10^3/uL (4.0-10.0) H 10/28/19 09:25 Corrected WBC Cancelled 10/24/19 05:05 RBC 3.14 10^6/uL (4.1-5.3) L 10/28/19 09:25 Hgb 9.3 g/dL (11.5-15.3) L 10/28/19 09:25 Hct 30.9 % (37.0-47.0) L 10/28/19 09:25 MCV 98.4 fL (81-99) 10/28/19 09:25 MCH 29.6 pg (28.0-34.0) 10/28/19 09:25 MCHC 30.1 g/dL (30.0-36.0) 10/28/19 09:25 RDW 14.0 % (12.1-15.1) 10/28/19 09:25 Plt Count 146 10^3/cmm (130-400) 10/28/19 09:25 MPV 10.1 fL (7.4-10.4) 10/28/19 09:25 Gran % Cancelled 10/24/19 05:05 Neut % (Auto) 71.4 % 10/28/19 09:25 Lymph % (Auto) 8.6 % 10/28/19 09:25 [place] % (Auto) 12.9 % 10/28/19 09:25 Eos % (Auto) 2.2 % 10/28/19 09:25 Baso % (Auto) 0.3 % 10/28/19 09:25 Neut # (Auto) 9.3 10^3/uL (1.8-7.7) H 10/28/19 09:25 Lymph # (Auto) 1.1 10^3/uL (0.8-4.8) 10/28/19 09:25 [place] # (Auto) 1.7 10^3/uL (0.2-0.9) H 10/28/19 09:25 Eos # (Auto) 0.3 10^3/uL (0.0-0.8) 10/28/19 09:25 Baso # (Auto) 0.0 10^3/uL (0.0-0.1) 10/28/19 09:25 Absolute Gran (auto) Cancelled 10/24/19 05:05 Nucleated RBC % (auto) 0 % 10/28/19 09:25 Total Counted 100 (0-100) 10/26/19 04:15 Absolute Neutrophils 8.1 10^3/cmm (1.4-6.5) H 10/26/19 04:15 Segmented Neutrophils 54 % 10/26/19 04:15 Abs Segm Neuts (Man) 7.6 10/cmm (1.6-7.1) H 10/26/19 04:15 Band Neutrophils 4.0 % 10/26/19 04:15 Abs Band Neuts (Man) 0.6 10^3/cmm (0.0-1.2) 10/26/19 04:15 Lymphocytes (Manual) 16 % 10/26/19 04:15 Monocytes (Manual) 18.0 % 10/26/19 04:15 Absolute Monocytes 2.5 10^3/cmm (0.1-0.6) H 10/26/19 04:15 Eosinophils (Manual) 4 % 10/26/19 04:15 Absolute Eosinophils 0.5 10^3/cmm (0.0-0.7) 10/26/19 04:15 Metamyelocytes 3.0 % 10/26/19 04:15 Myelocytes 1.0 % 10/26/19 04:15 Nucleated RBCs 2.0 /100WBC (0-1) H 10/26/19 04:15 Nucleated RBCs # 0.0 /100WBC 10/28/19 09:25 Platelet Estimate Decreased (Normal) L 10/26/19 04:15 Anisocytosis 2+ H 10/26/19 04:15 PT 14.70 SECONDS (10.5-13.3) H 10/22/19 04:34 INR 1.12 (0.8-1.2) 10/22/19 04:34 APTT 34.4 SECONDS (23.9-36.7) 10/19/19 16:44 Fibrinogen 729 mg/dL (184-529) H 10/19/19 16:44 Fibrin Degrad Products Neg, <10 ug/mL (NEG) 10/19/19 16:44 D-Dimer 1.23 ug/mIFEU (0-0.59) H 10/19/19 16:44 Specimen Type Arterial 10/28/19 04:14 Sample Site Radial, right 10/28/19 04:14 ABG pH 7.53 (7.35-7.45) H 10/28/19 04:14 ABG pCO2 35.4 mmHg (35-45) 10/28/19 04:14 ABG pO2 64.8 mmHg (80.0-100.0) L 10/28/19 04:14 ABG HCO3 29.8 mmol/L (22-26) H 10/28/19 04:14 ABG O2 Saturation 97.9 10/19/19 03:13 ABG Base Excess 6.8 mmol/L (-2.0-2.0) H 10/28/19 04:14 Brian Test Pos 10/28/19 04:14 A-a O2 Gradient 112.9 mmHg (5-10) H 10/19/19 03:13 Hematocrit 27.7 % (37-47) L 10/28/19 04:14 Hgb O2 Saturation 95.8 % (95-100) 10/19/19 03:13 Carboxyhemoglobin 1.0 %THgb (0.4-20.1) 10/19/19 03:13 Methemoglobin 1.3 % (0.4-1.5) 10/19/19 03:13 Total Hemoglobin 11.1 g/dL (12-16) L 10/19/19 03:13 Sodium 139.0 mmol/L (131-143) 10/19/19 03:13 Potassium 4.0 mmol/L (3.5-5.0) 10/19/19 03:13 Glucose 116.0 mg/dL (70-115) H 10/19/19 03:13 Ionized Calcium 1.0 mmol/L (1.1-1.4) L 10/19/19 03:13 Respiration Rate 12.0 % 10/28/19 04:14 O2 Delivery Device Vent 10/28/19 04:14 SIMV 12.0 10/19/19 03:13 Vent Mode Simv 10/18/19 04:00 FiO2 30.0 % 10/28/19 04:14 Tidal Volume 0.4 10/28/19 04:14 PEEP 5.0 cmH20 10/28/19 04:14 Pressure Support 10.0 cmH2O 10/25/19 14:30 Specimen Drawn By Bala 10/18/19 04:00 Diamond Cleaver ID [email or web address] 10/28/19 04:14 Sodium 142 mmol/L (136-145) 10/28/19 09:25 Potassium 3.6 mmol/L (3.5-5.1) 10/28/19 09:25 Chloride 103 mmol/L (98-107) 10/28/19 09:25 Carbon Dioxide 27 mmol/L (22-29) 10/28/19 09:25 Anion Gap 15.6 (5-19) 10/28/19 09:25 BUN 49 mg/dL (8-23) H 10/28/19 09:25 Creatinine 1.5 mg/dL (0.5-0.9) H 10/28/19 09:25 Glucose 120 mg/dL (65-115) H 10/28/19 09:25 POC Glucose 117 mg/dL (70-110) 10/29/19 07:21 Calculated Osmolality 293 mOsm/kg (285-295) 10/28/19 09:25 Calcium 8.4 mg/dL (8.5-10.5) L 10/28/19 09:25 Phosphorus 3.3 mg/dL (2.5-4.5) 10/28/19 09:25 Magnesium 2.2 mg/dL (1.7-2.3) 10/28/19 09:25 Total Bilirubin 0.5 mg/dL (0.15-1.2) 10/28/19 09:25 Direct Bilirubin 0.20 mg/dL (0.00-0.30) 10/12/19 10:00 AST 40 U/L (0-32) H 10/28/19 09:25 ALT 34 U/L (0-33) H 10/28/19 09:25 Alkaline Phosphatase 168 IU/L (35-105) H 10/28/19 09:25 Ammonia 23 umol/L (11-51) 10/23/19 03:17 NT-Pro-B Natriuret Pep 6830 pg/mL (0-125) H 10/27/19 04:43 Total Protein 5.9 g/dL (6.6-8.7) L 10/28/19 09:25 Albumin 2.8 g/dL (3.5-5.2) L 10/28/19 09:25 Globulin 3.1 g/dL (1.3-4.6) 10/28/19 09:25 TSH 2.16 uIU/mL (0.27-4.20) 10/12/19 10:00 Free T4 0.92 ng/dL (0.82-1.77) 10/12/19 10:00 Urine Color Yellow (Yellow) 10/20/19 13:45 Urine Appearance Hazy (CLEAR) A 10/20/19 13:45 Urine pH 5 (5-7) 10/20/19 13:45 Ur Specific [place] 1.020 (1.005-1.030) 10/20/19 13:45 Urine Protein Neg (Negative) 10/20/19 13:45 Urine Glucose (UA) Norm (Normal) 10/20/19 13:45 Urine Ketones 1+ (Negative) H 10/20/19 13:45 Urine Blood 2+ (Negative) H 10/20/19 13:45 Urine Nitrate Negative (Negative) 10/20/19 13:45 Urine Bilirubin Neg (NEGATIVE) 10/20/19 13:45 Urine Urobilinogen Norm mg/dL (Negative) 10/20/19 13:45 Ur Leukocyte Esterase Negative (Negative) 10/20/19 13:45 Urine RBC 50-80 /hpf (0-2) H 10/20/19 13:45 Urine WBC None /hpf (0-5) 10/20/19 13:45 Ur Squamous Epith Cells 10-15 (0-5) H 10/20/19 13:45 Urine Bacteria 1+ (NONE) H 10/20/19 13:45 Hyaline Casts 0-4 H 10/20/19 13:45 Fine Granular Casts 0-4 /lpf H 10/20/19 13:45 Urine Mucus 2+ 10/20/19 13:45 Vancomycin Trough 16.4 ug/mL (10-15) H 10/21/19 22:20 Hepatitis A IgM Ab Non-reactive (Nonreactive) 10/23/19 03:17 Hep Bs Antigen Non-reactive (Nonreactive) 10/23/19 03:17 Hep B Core IgM Ab Non-reactive (Nonreactive) 10/23/19 03:17 Hepatitis C Antibody Non-reactive (Nonreactive) 10/23/19 03:17 Blood Type O Positive 10/12/19 10:41 Rho(D) Type Positive 10/12/19 10:41 Antibody Screen Negative 10/12/19 10:41 Crossmatch See Detail 10/12/19 10:41 Micro: Microbiology 10/27/19 11:20 Gram Stain - Final Sputum - Endotracheal Tube Aspirate Sputum Culture - Preliminary A&P Assessment and plan (1) Pulmonary edema: Currently seems compensated. May continue the current medications. Status: Acute Qualifiers: Chronicity: acute Qualified Code(s): J81.0 - Acute pulmonary edema (2) Acute kidney injury: The kidney function seems to be improving Status: Acute (3) CVA (cerebral vascular accident): Likely patient had embolic event. Currently she has no focal motor deficits. She had a MOISE which revealed no evidence of any valve thrombosis Status: Acute Qualifiers: CVA mechanism: other Qualified Code(s): I63.89 - Other cerebral infarction (4) S/P AVR (aortic valve replacement): Since the patient has no specific symptoms of valve dysfunction, may continue on the current management. May continue the phase phase 2 rehab exercise Status: Acute (5) Chronic obstructive pulmonary disease, unspecified: Status: Acute Qualifiers: COPD type: unspecified COPD Qualified Code(s): J44.9 - Chronic obstructive pulmonary disease, unspecified (6) HTN (hypertension): Her blood pressure is fairly under control. May continue on the current medications. Status: Acute Qualifiers: Hypertension type: essential hypertension Qualified Code(s): I10 - Essential (primary) hypertension Additional A&P Information After reviewing the above and also based on the patient's clinical progress, further management decisions will be made. Attestations Medical Necessity Statement*: Patient requires continued hospital stay for close monitoring and further management Coding Level of Care Code Acute Grid Operator for Chg Fwd Diagnoses Pulmonary edema J81.0 Chronicity: acute Acute kidney injury N17.9 CVA (cerebral vascular accident) I63.89 CVA mechanism: other S/P AVR (aortic valve replacement) Z95.2 Chronic obstructive pulmonary disease, unspecified J44.9 COPD type: unspecified COPD HTN (hypertension) I10 Hypertension type: essential hypertension
--- NOTE | 2019-10-29 10:43 | XRR_ITS ---
PROCEDURE INFORMATION: Exam: XR Abdomen, 1 View Exam date and time: 10/29/2019 10:44 AM Age: 74 years old Clinical indication: Device placement; Gi device; Nasogastric tube; Additional info: Gastric tube placement TECHNIQUE: Imaging protocol: XR of the abdomen. Views: Frontal supine view of the abdomen. 1 View. COMPARISON: abdomen limited [id number] 10/24/2019 11:37 AM FINDINGS: Tubes, catheters and devices: Termination of feeding tube in the gastric body. Central venous catheter. Lungs: Basilar airspace/pleural disease. Gastrointestinal tract: Mild small bowel dilatation and air-fluid levels in the visualized abdomen, with nonvisualization of the pelvis. Bones/joints: Degenerative change. Median sternotomy. XR/XR abdomen 1V* 20007 IMPRESSION: 1. Termination of feeding tube in the gastric body. 2. Mild small bowel dilatation and air-fluid levels in the visualized abdomen, with nonvisualization of the pelvis.
--- NOTE | 2019-10-29 11:28 | P.PN_ITS ---
Subjective Subjective: Interval history: Extubated to bipap yesterday. Continues to be lethargic, opens eyes and mumbles inchorently. needed Bipap overnight, this am given trial off bipap, however she appeared to be tiring out with poot inspiratory effort and 02 sat dropped to 89%. She is placed back on Bipap now. Urine output 300 cc this shift. Overnight was ~1L. NGT reinserted Medications: Reviewed: Yes Medication Review Details: Current Medications Amlodipine Besylate (Norvasc) 5 mg PO DAILY [facility] Last Admin: 10/28/19 08:49 Dose: 5 mg Documented by: Aspirin (Aspirin Chewable) 81 mg PO DAILY [facility] Last Admin: 10/28/19 08:48 Dose: 81 mg Documented by: Atorvastatin Calcium (Lipitor) 40 mg PO BEDTIME [facility] Last Admin: 10/24/19 20:44 Dose: 40 mg Documented by: Chlorhexidine Gluconate (Perigard) 15 ml MUCOUS MEM BID [facility] Last Admin: 10/28/19 18:07 Dose: 1 dose Documented by: Enoxaparin Sodium (Lovenox) 40 mg SUBCUT Q24H [facility] Last Admin: 10/28/19 14:44 Dose: 40 mg Documented by: Epinephrine (Vaponephrine) 0.5 ml INHALATION Q6H.RESPIRATORY PRN PRN Reason: Stridor Gabapentin (Neurontin) 100 mg PO DAILY [facility] Last Admin: 10/28/19 08:48 Dose: 100 mg Documented by: Glucagon (Glucagen) 1 mg IM ONCE PRN; Protocol PRN Reason: Adult Acute Hypoglycemia Prot Labetalol HCl 300 mg/ Sodium (Chloride) 300 mls @ 0 mls/hr IV .Q0M PRN; Protocol PRN Reason: Blood Pressure Dexmedetomidine HCl 400 mcg/ (Sodium Chloride) 104 mls @ 0 mls/hr IV .Q0M PRN; Protocol PRN Reason: SEDATION Last Titration: 10/28/19 07:40 Dose: 0.6 mcg/kg/hr, 12 mls/hr Documented by: Piperacillin Sod/Tazobactam (Sod 3.375 gm/ Sodium Chloride) 50 mls @ 12.5 mls/hr IV Q8H [facility]; Protocol Last Admin: 10/29/19 02:08 Dose: 12.5 mls/hr Documented by: Insulin Aspart (Novolog) 0 unit SUBCUT WM&BEDTIME [facility]; Protocol Last Admin: 10/28/19 22:16 Dose: Not Given Documented by: Labetalol HCl (Trandate) 10 mg IVP Q6H PRN PRN Reason: HYPERTENSION Last Admin: 10/27/19 08:15 Dose: 10 mg Documented by: Metolazone (Zaroxolyn) 2.5 mg PO ONCE [facility] Last Admin: 10/27/19 08:13 Dose: 2.5 mg Documented by: Metoprolol Tartrate (Metoprolol Tartrate) 2.5 mg IV Q12H [facility] Last Admin: 10/29/19 05:13 Dose: 2.5 mg Documented by: Pantoprazole Sodium (Protonix) 40 mg NG-TUBE DAILY [facility] Last Admin: 10/28/19 08:48 Dose: 40 mg Documented by: Venlafaxine HCl (Effexor Xr) 150 mg PO DAILY [facility] Last Admin: 10/28/19 08:48 Dose: 150 mg Documented by: Vitals/I&O/Wt Last Vital Signs Temp 98.1 F 10/29/19 08:56 Pulse 85 10/29/19 10:48 Resp 22 H 10/29/19 10:48 BP 163/67 10/29/19 10:48 Pulse Ox 93 10/29/19 10:48 10/28/19 10/29/19 10/29/19 22:59 06:59 14:59 Intake Total 50 / 207.592 50 / 257.592 Output Total 655 / 1745 615 / 2360 200 / 200 Balance -605 / -1537.408 -565 / -2102.408 -200 / -200 Weight last 48 hrs Weight 80.24 kg Weight 83.416 kg Physical Exam Narrative: EXAM NARRATIVE: GEN: lethargic, opens eyes to calling name and mumbles HEENT: on Bipap CVS: S1S2 N RS: B/L lung bases with crackles Abd: Soft, nt/nd , bs+ Ext: minimal LE dependednt edema Urinary Catheter Management^: Mccabe: Cath Placed During This Visit: yes Reason for Continuing Indwelling Catheter: Accurate Measurement of Urinary Output in Critically Ill Patients Urinary Catheter Date of Insertion: 10/17/19 Urinary Catheter Time of Insertion: 08:12 Data : 10/28/19 09:25 10/28/19 09:25 Micro: Microbiology 10/27/19 11:20 Gram Stain - Final Sputum - Endotracheal Tube Aspirate Sputum Culture - Preliminary Gram Negative Rods A&P Assessment and plan (1) Status post aortic valve replacement with bioprosthetic valve: Postop aortic valve replacement with bioprosthetic valve performed by Dr. Luciano on October 17 Extubtaed to bipap yestterday, tiring out with poor inspiratory effort off bippa, therefore placed on continuouis Bipap Required porlonged intubation post op due to L MCA stroke, unable to assess neuro deficits at this time, patient remains lethargic, mumbling as best response. Status: Acute (2) Chronic obstructive pulmonary disease, unspecified: Status: Acute (3) Bipolar affective disorder: Hold effexor for now to minimize any potentially sedating medications Status: Acute (4) HTN (hypertension): Continue Norvasc , hydralazine Discontinue carvedilol as currently on iv metoprolol Losartan discontinued secondary to renal function Status: Acute Qualifiers: Hypertension type: essential hypertension Qualified Code(s): I10 - Essential (primary) hypertension (5) CVA (cerebral vascular accident): Acute left MCA CVA, noted following aortic valve replacement. Previously done documented no carotid artery stenosis. Goal blood pressure is 140, to 150 neurology has been consulted. Continue aspirin. Continue statin. MOISE without obvious thrombus Status: Acute Qualifiers: CVA mechanism: other Qualified Code(s): I63.89 - Other cerebral infarction (6) Pulmonary edema: lasix 40mg iv x 1 today Status: Acute (7) Aspiration into airway: Concern of ventilator associated pneumonia during this hospital stay with fever. Possible aspiration on first extubation attempt following which she developed flash pulmonary edema and needed reintubation. WBC trending down 14--> 12, low gr fever resolved continue zosyn Status: Acute Additional A&P Information Anemia, hemoglobin currently stable Thrombocytopenia. Stable Acute on chronic renal failure, creatinine improved. Continue Mccabe. Transaminitis. Ammonia level normal. RUQ USG without acute pathology. Hepatitis serology negative for acute hepatitis. Possible congestive hepatitis, improving GI prophylaxis, Protonix Tube feeding diet Full code DVt ppx: lovenox Updates discussed with sister Pearl Attestations Medical Necessity Statement*: precarious respiratory status post extubation, needs close monitoring Coding Level of Care Code Acute Food And Beverage Analyst for Chg Fwd Diagnoses Status post aortic valve replacement with bioprosthetic valve Z95.3 Chronic obstructive pulmonary disease, unspecified J44.9 Bipolar affective disorder F31.9 HTN (hypertension) I10 Hypertension type: essential hypertension CVA (cerebral vascular accident) I63.89 CVA mechanism: other Pulmonary edema J81.1 Aspiration into airway T17.908A
[2019-10-29] MEDS: amlodipine 5 mg Tablet PO (11:31)
[2019-10-29] MEDS: gabapentin 100 mg Capsule PO (11:31)
[2019-10-29] MEDS: pantoprazole DR 40 mg Tablet NG-TUBE (11:31)
[2019-10-29] MEDS: aspirin 81 mg Chew Tablet PO (11:31)
[2019-10-29] MEDS: chlorhexidine gluconate 0.12% Btl 473 mL 15 ML MUCOUS MEM ×2 (11:35→17:40)
[2019-10-29] MEDS: FUROsemide 10 mg/mL SDV 4mL 40 MG IVP (11:39)
[2019-10-29 11:50] LABS: Glucose Point of Care 124 mg/dL (70-110)
[2019-10-29] MEDS: metoprolol tartrate 1 mg/1 mL SDV 5 mL 5 MG IV ×2 (12:34→23:24)
[2019-10-29] MEDS: enoxaparin 40 mg/0.4 mL Syringe SUBCUT (16:41)
[2019-10-29 17:19] LABS: Glucose Point of Care 135 mg/dL (70-110)
--- NOTE | 2019-10-29 17:32 | PC.NURSE ---
Run of SVT lasting approximately 7 minutes, Dr. Pride notified. Verbal order for lopressor IV received, however pt converted back to normal sinus rhythm prior to medication being administered or EKG performed.VSS, will continue to monitor.
[2019-10-29 21:11] LABS: Glucose Point of Care 111 mg/dL (70-110)
[2019-10-30] VITALS (89 sets, daily range): BP systolic 99–192; BP diastolic 56–109; PULSE 49–171; RESP 15–46; TEMP 36.6–37.1; O2SAT 92–100
--- NOTE | 2019-10-30 01:37 | PC.NURSE ---
Dr. Deluca in ICU, notified of runs of SVT, rhythm strips reviewed, medications orders reviewed. Order given to change Metoprolol order to 5mg every 8 hours and start nitro 1 inch every 6 hours.
[2019-10-30] MEDS: piperacillin-tazobactam 3.375 GM in sodium chloride 0.9% (plus) 50 ML IV ×3 (02:43→17:59)
[2019-10-30] MEDS: nitroglycerin 1 gm/inch oint Pkt 1 INCH TOPICAL ×4 (02:43→20:22)
[2019-10-30] MEDS: metoprolol tartrate 1 mg/1 mL SDV 5 mL 5 MG IV ×2 (02:51→08:21)
[2019-10-30] MEDS: nitroglycerin drip 50 MG/250 ML PREMIX IV (03:17)
[2019-10-30 03:56] LABS: Basophils # 0.1 10^3/uL (0.0-0.1); Basophils % 0.8 %; Eosinophils # 0.2 10^3/uL (0.0-0.8); Eosinophils % 1.3 %; Hematocrit 34.3 % (37.0-47.0); Hemoglobin 10.4 g/dL (11.5-15.3); Lymphocytes # 1.1 10^3/uL (0.8-4.8); Lymphocytes % 7.1 %; Mean Corpuscular HGB Conc 30.3 g/dL (30.0-36.0); Mean Corpuscular Hemoglobin 29.5 pg (28.0-34.0); Mean Corpuscular Volume 97.4 fL (81-99); Mean Platelet Volume 10.4 fL (7.4-10.4); Monocytes # 1.6 10^3/uL (0.2-0.9); Monocytes % 10.4 %; Neutrophils # 11.8 10^3/uL (1.8-7.7); Neutrophils % 79.1 %; Nucleated Red Blood Cells % 0 %; Platelet Count 180 10^3/cmm (130-400); Red Blood Count 3.52 10^6/uL (4.1-5.3); Red Cell Distribution Width 13.8 % (12.1-15.1)
[2019-10-30 04:23] LABS: Albumin Level 2.4 g/dL (3.5-5.2); Alkaline Phosphatase 162 IU/L (35-105); Blood Urea Nitrogen 35 mg/dL (8-23); Calcium 8.5 mg/dL (8.5-10.5); Carbon Dioxide 26 mmol/L (22-29); Chloride 101 mmol/L (98-107); Globulin 4.3 g/dL (1.3-4.6); Glucose 114 mg/dL (65-115); Osmolality Calculated 290 mOsm/kg (285-295); Sodium 141 mmol/L (136-145); Total Bilirubin 0.6 mg/dL (0.15-1.2); Total Protein 6.7 g/dL (6.6-8.7)
[2019-10-30 04:52] LABS: Alanine Aminotransferase 39 U/L (0-33); Anion Gap 18.6 (5-19); Aspartate Amino Transferase 63 U/L (0-32); Potassium 4.6 mmol/L (3.5-5.1)
[2019-10-30 07:10] LABS: Glucose Point of Care 119 mg/dL (70-110)
[2019-10-30] MEDS: aspirin 81 mg Chew Tablet PO (08:21)
[2019-10-30] MEDS: amlodipine 5 mg Tablet PO ×2 (08:21→17:59)
[2019-10-30] MEDS: pantoprazole DR 40 mg Tablet NG-TUBE (08:21)
[2019-10-30] MEDS: venlafaxine ER (24HR) 150 mg Capsule PO (08:21)
[2019-10-30] MEDS: gabapentin 100 mg Capsule PO (08:21)
[2019-10-30] MEDS: chlorhexidine gluconate 0.12% Btl 473 mL 15 ML MUCOUS MEM ×2 (08:22→18:21)
--- NOTE | 2019-10-30 10:02 | P.PN_ITS ---
Subjective Subjective: Interval history: Patient apparently developed episodes of atrial fibrillation rapid irregular rate yesterday. She responded to IV beta-bairon. She denies any chest pain or unusual shortness of breath. No fever, chills or cough. She remains afebrile. The white cell count is still remaining high Medications: Reviewed: Yes Medication Review Details: Current Medications Amlodipine Besylate (Norvasc) 5 mg PO DAILY [facility] Last Admin: 10/30/19 08:21 Dose: 5 mg Documented by: Aspirin (Aspirin Chewable) 81 mg PO DAILY [facility] Last Admin: 10/30/19 08:21 Dose: 81 mg Documented by: Atorvastatin Calcium (Lipitor) 40 mg PO BEDTIME [facility] Last Admin: 10/24/19 20:44 Dose: 40 mg Documented by: Chlorhexidine Gluconate (Perigard) 15 ml MUCOUS MEM BID [facility] Last Admin: 10/30/19 08:22 Dose: 1 dose Documented by: Enoxaparin Sodium (Lovenox) 40 mg SUBCUT Q24H [facility] Last Admin: 10/30/19 15:18 Dose: 40 mg Documented by: Epinephrine (Vaponephrine) 0.5 ml INHALATION Q6H.RESPIRATORY PRN PRN Reason: Stridor Gabapentin (Neurontin) 100 mg PO DAILY [facility] Last Admin: 10/30/19 08:21 Dose: 100 mg Documented by: Glucagon (Glucagen) 1 mg IM ONCE PRN; Protocol PRN Reason: Adult Acute Hypoglycemia Prot Piperacillin Sod/Tazobactam (Sod 3.375 gm/ Sodium Chloride) 50 mls @ 12.5 mls/hr IV Q8H [facility]; Protocol Last Admin: 10/30/19 10:21 Dose: 12.5 mls/hr Documented by: Nitroglycerin/Dextrose (Nitroglycerin Drip) 50 mg in 250 mls @ 0 mls/hr IV .Q0M [facility]; Protocol Last Titration: 10/30/19 15:19 Dose: 25 mcg/min, 7.5 mls/hr Documented by: Insulin Aspart (Novolog) 0 unit SUBCUT WM&BEDTIME [facility]; Protocol Last Admin: 10/30/19 11:47 Dose: Not Given Documented by: Metoprolol Tartrate (Lopressor) 50 mg PO BID [facility] Last Admin: 10/30/19 10:43 Dose: 50 mg Documented by: Metoprolol Tartrate (Metoprolol Tartrate) 5 mg IV Q6H PRN PRN Reason: SVT Nitroglycerin (Nitro-Bid) 1 inch TOPICAL Q6H [facility] Last Admin: 10/30/19 15:18 Dose: 1 inch Documented by: Pantoprazole Sodium (Protonix) 40 mg NG-TUBE DAILY [facility] Last Admin: 10/30/19 08:21 Dose: 40 mg Documented by: Venlafaxine HCl (Effexor Xr) 150 mg PO DAILY [facility] Last Admin: 10/30/19 08:21 Dose: 150 mg Documented by: Vitals/I&O/Wt Last Vital Signs Temp 98.0 F 10/30/19 02:58 Pulse 82 10/30/19 08:54 Resp 24 H 10/30/19 08:00 BP 140/56 10/30/19 08:00 Pulse Ox 96 10/30/19 08:54 10/29/19 10/30/19 10/30/19 22:59 06:59 14:59 Intake Total 50 / 100 12.200 / 112.200 10.88 / 10.88 Output Total 1250 / 2600 500 / 3100 120 / 120 Balance -1200 / -2500 -487.800 / -2987.800 -109.12 / -109.12 Weight last 48 hrs Weight 133 lb Weight 176 lb 14.4 oz Physical Exam Narrative: EXAM NARRATIVE: GENERAL: The patient is lethargic. No fever or chills. HEENT: No significant pallor, icterus or lymphadenopathy.Oral cavity: There are no mucous membrane lesions. NECK: Trachea appears to be central. No masses noted. No JVD or thyromegaly appreciated. RESPIRATORY: Chest is symmetrical. No intercostals muscle retraction or any accessory muscle activation. The sternotomy site appears to be healing well. No evidence of infection or drainage BREASTS: Deferred. HEART: The heart sounds are normal. No S3 or S4. Short systolic murmur at the base of the heart. No diastolic murmurs. No pericardial rub ABDOMEN: No vessel pulsations or distention. No tenderness. No organomegaly appreciated. Bowel sounds are normally heard. : Deferred. RECTAL: Deferred. LYMPHATIC: No lymphadenopathy noted in the neck . EXTREMITIES: Trace edema with no cyanosis MUSCULOSKELETAL: No acute joint deformities or swelling SKIN: There are no significant rashes or ecchymosis NEUROPSYCHIATRIC: The patient is drowsy and appears to be drowsy with not much drive Urinary Catheter Management^: Mccabe: Cath Placed During This Visit: yes Reason for Continuing Indwelling Catheter: Accurate Measurement of Urinary Output in Critically Ill Patients Urinary Catheter Date of Insertion: 10/17/19 Urinary Catheter Time of Insertion: 08:12 Data : 10/30/19 03:30 10/30/19 03:30 Micro: Microbiology 10/27/19 11:20 Gram Stain - Final Sputum - Endotracheal Tube Aspirate Sputum Culture - Preliminary Gram Negative Rods A&P Assessment and plan (1) Postoperative atrial fibrillation: Since she responded to the IV Lopressor, I may start her on p.o. Lopressor 50 mg twice daily for better control of the blood pressure as well as for the fi brillation. The episodes of atrial fibrillation were lasting only for a few minutes. The longest one was of 15 minutes and the other 2 were not well for less than 5 minutes. At this point, we may hold off on any long-term oral anticoagulation. But if she continues to have recurrence of atrial fi brillation, it would be appropriate to go ahead and start her on oral anticoagulation. Status: Acute (2) Pulmonary edema: Currently seems compensated. May continue the current medications. Status: Acute Qualifiers: Chronicity: acute Qualified Code(s): J81.0 - Acute pulmonary edema (3) Acute kidney injury: The kidney function continues to improve. May continue on the current measures. Status: Acute (4) CVA (cerebral vascular accident): Likely patient had embolic event. Currently she has no focal motor deficits. She had a MOISE which revealed no evidence of any valve thrombosis Status: Acute Qualifiers: CVA mechanism: other Qualified Code(s): I63.89 - Other cerebral infarction (5) S/P AVR (aortic valve replacement): Since the patient has no specific symptoms of valve dysfunction, may continue on the current management. May continue the phase phase 2 rehab exercise Status: Acute (6) Chronic obstructive pulmonary disease, unspecified: Continue on the current treatment Status: Acute Qualifiers: COPD type: unspecified COPD Qualified Code(s): J44.9 - Chronic obstructive pulmonary disease, unspecified (7) HTN (hypertension): Patient has stage II hypertension. I may start her on amlodipine 5 mg twice daily and continue on the metoprolol as mentioned above. She is on IV nitroglycerin as well. Based on the clinical response, further management decisions will be made. Status: Acute Qualifiers: Hypertension type: essential hypertension Qualified Code(s): I10 - Essential (primary) hypertension Attestations Medical Necessity Statement*: Patient requires continued hospital stay for close monitoring and further management Coding Level of Care Code Acute Customs Compliance Analyst for [facility] Fwd Diagnoses Postoperative atrial fibrillation I97.89; I48.91 Pulmonary edema J81.0 Chronicity: acute Acute kidney injury N17.9 CVA (cerebral vascular accident) I63.89 CVA mechanism: other S/P AVR (aortic valve replacement) Z95.2 Chronic obstructive pulmonary disease, unspecified J44.9 COPD type: unspecified COPD HTN (hypertension) I10 Hypertension type: essential hypertension
[2019-10-30] MEDS: metoprolol tartrate 50 mg Tablet PO ×2 (10:43→17:59)
--- NOTE | 2019-10-30 10:50 | PC.SOCIAL ---
IMM Updated Page 2 of IMM updated and given to patient. Initialed, dated, and timed and placed back in chart.
[2019-10-30 11:19] LABS: Glucose Point of Care 109 mg/dL (70-110)
[2019-10-30] MEDS: enoxaparin 40 mg/0.4 mL Syringe SUBCUT (15:18)
[2019-10-30 17:41] LABS: Glucose Point of Care 108 mg/dL (70-110)
--- NOTE | 2019-10-30 19:57 | PC.NURSE ---
assumed patient care. patient is currently on bi pap 04/01 28% patients sats are wnl vs are wnl sr with occasional pvcs. iv infusing nitro at 80 mvg for bp via centrl line. bs x 4 quads hairston intact and ngt right nare. on turn sched and air bed.
[2019-10-30 20:34] LABS: Glucose Point of Care 112 mg/dL (70-110)
[2019-10-31] VITALS (104 sets, daily range): BP systolic 106–184; BP diastolic 53–143; PULSE 67–166; RESP 14–40; TEMP 36.4–37.4; O2SAT 85–99
--- NOTE | 2019-10-31 00:03 | P.PN_ITS ---
Subjective Subjective: Interval history: seen and examined earlier this afternoon. apparently developed episodes of atrial fibrillation rapid irregular rate yesterday. She responded to IV beta-bairon. On NTG infusion this morning, intermittently on Bipap through the day. Medications: Reviewed: Yes Vitals/I&O/Wt Last Vital Signs Temp 98.8 F 10/30/19 20:00 Pulse 75 10/30/19 23:15 Resp 33 H 10/30/19 20:15 BP 152/59 10/30/19 20:15 Pulse Ox 94 10/30/19 23:15 10/30/19 10/30/19 10/31/19 14:59 22:59 06:59 Intake Total 65.14 / 65.14 59.200 / 124.340 Output Total 330 / 330 320 / 650 Balance -264.86 / -264.86 -260.800 / -525.660 Weight last 48 hrs Weight 60.328 kg Weight 80.24 kg Physical Exam Narrative: EXAM NARRATIVE: GEN: lethargic, opens eyes to calling name and mumbles HEENT: on NC currently, NGT in place CVS: S1S2 N RS: CTA B/L anteriorly Abd: Soft, nt/nd , bs+ Urinary Catheter Management^: Mccabe: Cath Placed During This Visit: yes Reason for Continuing Indwelling Catheter: Accurate Measurement of Urinary Output in Critically Ill Patients Urinary Catheter Date of Insertion: 10/17/19 Urinary Catheter Time of Insertion: 08:12 Data : 10/30/19 03:30 10/30/19 03:30 Micro: Microbiology 10/27/19 11:20 Gram Stain - Final Sputum - Endotracheal Tube Aspirate Sputum Culture - Final Serratia marcescens A&P Assessment and plan (1) Status post aortic valve replacement with bioprosthetic valve: Postop aortic valve replacement with bioprosthetic valve performed by Dr. Luciano on October 17 Extubtaed to bipap, needs intermittently during the day, limited by lethargy and poor inspiratory effort Required porlonged intubation post op due to L MCA stroke, patient remains lethargic, mumbling as best response. Status: Acute (2) Chronic obstructive pulmonary disease, unspecified: Status: Acute Qualifiers: COPD type: unspecified COPD Qualified Code(s): J44.9 - Chronic obstructive pulmonary disease, unspecified (3) Bipolar affective disorder: Hold effexor for now to minimize any potentially sedating medications Status: Acute (4) HTN (hypertension): Continue Norvasc , hydralazine ,metoprolol Losartan discontinued secondary to renal function Status: Acute Qualifiers: Hypertension type: essential hypertension Qualified Code(s): I10 - Essential (primary) hypertension (5) CVA (cerebral vascular accident): Acute left MCA CVA, noted following aortic valve replacement. Previously done documented no carotid artery stenosis. Goal blood pressure is 140, to 150 neurology has been consulted. Continue aspirin. on hold statin due to deranged LFT MOISE without obvious thrombus Status: Acute Qualifiers: CVA mechanism: other Qualified Code(s): I63.89 - Other cerebral infarction (6) Pulmonary edema: Status: Acute Qualifiers: Chronicity: acute Qualified Code(s): J81.0 - Acute pulmonary edema (7) Aspiration into airway: Concern of ventilator associated pneumonia during this hospital stay with fever. Possible aspiration on first extubation attempt following which she developed flash pulmonary edema and needed reintubation. continue zosyn Status: Acute Additional A&P Information Anemia, hemoglobin currently stable Thrombocytopenia. Stable Acute on chronic renal failure, creatinine improved. Continue Mccabe. Transaminitis. Ammonia level normal. RUQ USG without acute pathology. Hepatitis serology negative for acute hepatitis. Possible congestive hepatitis, improving GI prophylaxis, Protonix Tube feeding diet Full code DVt ppx: lovenox Attestations Medical Necessity Statement*: optimization of respiratory status, monitor for improvement in mental status Coding Level of Care Code Acute Diagnostic Sales Specialist for [facility] Fwd Diagnoses Status post aortic valve replacement with bioprosthetic valve Z95.3 Chronic obstructive pulmonary disease, unspecified J44.9 COPD type: unspecified COPD Bipolar affective disorder F31.9 HTN (hypertension) I10 Hypertension type: essential hypertension CVA (cerebral vascular accident) I63.89 CVA mechanism: other Pulmonary edema J81.0 Chronicity: acute Aspiration into airway T17.908A
[2019-10-31] MEDS: nitroglycerin drip 50 MG/250 ML PREMIX 24 MG IV (02:29)
[2019-10-31] MEDS: nitroglycerin 1 gm/inch oint Pkt 1 INCH TOPICAL ×4 (03:04→20:48)
[2019-10-31] MEDS: piperacillin-tazobactam 3.375 GM in sodium chloride 0.9% (plus) 50 ML IV ×3 (03:04→17:42)
[2019-10-31 04:19] LABS: Alanine Aminotransferase 27 U/L (0-33); Albumin Level 2.8 g/dL (3.5-5.2); Alkaline Phosphatase 121 IU/L (35-105); Anion Gap 15.4 (5-19); Aspartate Amino Transferase 33 U/L (0-32); Blood Urea Nitrogen 33 mg/dL (8-23); Calcium 8.5 mg/dL (8.5-10.5); Carbon Dioxide 29 mmol/L (22-29); Chloride 105 mmol/L (98-107); Glucose 111 mg/dL (65-115); Osmolality Calculated 300 mOsm/kg (285-295); Potassium 3.4 mmol/L (3.5-5.1); Sodium 146 mmol/L (136-145); Total Bilirubin 0.7 mg/dL (0.15-1.2); Total Protein 5.8 g/dL (6.6-8.7)
--- NOTE | 2019-10-31 06:00 | XR_ITS ---
WS: [id number] PORTABLE CHEST HISTORY: f/up pleural effusion COMPARISON: 10/28/2019 Status post CABG. RIGHT PICC line in good position. Nasogastric tube is present in good position. End otracheal tube has been removed. Lungs are hyperinflated with diffuse haziness suggesting mild fluid overload. Small bilateral pleural effusions. Cardiac size: Moderately enlarged cardiac silhouette. Mediastinum/Aorta: Normal mediastinum. No osseous abnormality seen. XR/XR chest 1V portable [id number] IMPRESSION: 1. Nasogastric tube in good position. 2. Continued moderate cardiomegaly and small bilateral pleural effusions. 3. Mild interstitial edema. 4. No significant interval change.
[2019-10-31 07:58] LABS: Glucose Point of Care 115 mg/dL (70-110)
--- NOTE | 2019-10-31 08:07 | PC.NURSE ---
RESPIRATORY STATUS Upon morning assessment, patient noted to be on 3.5 L O2 nasal cannula. Patient O2 saturation of 92% and patient working hard to breathe and using abdominal muscles. Patient placed back on BIPAP. Will continue to monitor.
--- NOTE | 2019-10-31 09:20 | P.PN_ITS ---
Subjective Subjective: Interval history: Awake and sitting up when I went to the room with physical therapy. Already worn out. On BiPAP. Medications: Reviewed: Yes Vitals/I&O/Wt Last Vital Signs Temp 98.8 F 10/31/19 06:45 Pulse 92 10/31/19 08:00 Resp 34 H 10/31/19 08:00 BP 156/70 10/31/19 08:00 Pulse Ox 97 10/31/19 08:00 10/30/19 10/31/19 10/31/19 22:59 06:59 14:59 Intake Total 109.200 / 174.340 153 / 327.340 Output Total 445 / 775 230 / 1005 160 / 160 Balance -335.800 / -600.660 -77 / -677.660 -160 / -160 Weight last 48 hrs Weight 80.195 kg Weight 60.328 kg Physical Exam Narrative: EXAM NARRATIVE: General exam is a tired appearing white female who can follow some basic commands and tries to mouth some words. NG is in place Cardiovascular regular rate and rhythm without murmur. Tachycardic when I saw her but I just been up and about. Lungs diminished breath sounds bilaterally. Occasional wheeze Abdomen is soft, positive bowel sounds Extremities no cyanosis clubbing or edema Urinary Catheter Management^: Mccabe: Cath Placed During This Visit: yes Reason for Continuing Indwelling Catheter: Accurate Measurement of Urinary Output in Critically Ill Patients Urinary Catheter Date of Insertion: 10/17/19 Urinary Catheter Time of Insertion: 08:12 Data : 10/30/19 03:30 10/31/19 03:11 Micro: Microbiology 10/31/19 03:12 Blood Culture - Preliminary Blood SPECIMEN COLLECTED 10/31/19 03:11 Blood Culture - Preliminary Blood SPECIMEN COLLECTED 10/27/19 11:20 Gram Stain - Final Sputum - Endotracheal Tube Aspirate Sputum Culture - Final Serratia marcescens A&P Assessment and plan (1) Status post aortic valve replacement with bioprosthetic valve: Postop aortic valve replacement with bioprosthetic valve performed by Dr. Luciano on October 17 Extubtaed to bipap, needs intermittently during the day, limited by lethargy and poor inspiratory effort. Still on BiPAP at this time. Had prolonged intubation secondary to left MCA CVA. Will require rehab. May require long-term care hospital. Status: Acute (2) Chronic obstructive pulmonary disease, unspecified: No evidence of exacerbation currently. Status: Acute Qualifiers: COPD type: unspecified COPD Qualified Code(s): J44.9 - Chronic obstructive pulmonary disease, unspecified (3) Bipolar affective disorder: At this point reinitiate Effexor 75 mg twice daily Status: Acute (4) HTN (hypertension): Continue Norvasc ,metoprolol, nitroglycerin drip. Has hydralazine PRN Start hydralazine scheduled 25 mg 3 times daily Status: Acute Qualifiers: Hypertension type: essential hypertension Qualified Code(s): I10 - Essential (primary) hypertension (5) CVA (cerebral vascular accident): Acute left MCA CVA, noted following aortic valve replacement. Previously done documented no carotid artery stenosis. Goal blood pressure is 140, to 150 neurology has been consulted. Continue aspirin. on hold statin due to deranged LFT MOISE without obvious thrombus Continue therapies. Speech therapy consult to evaluate for ability to take p.o. Status: Acute Qualifiers: CVA mechanism: other Qualified Code(s): I63.89 - Other cerebral inf arction (6) Pulmonary edema: Significantly improved on chest x-ray Status: Acute Qualifiers: Chronicity: acute Qualified Code(s): J81.0 - Acute pulmonary edema (7) Aspiration into airway: Concern of ventilator associated pneumonia during this hospital stay with fever. Possible aspiration on first extubation attempt following which she developed flash pulmonary edema and needed reintubation. Continue Zosyn currently Still with acute respiratory failure requiring BiPAP. Status: Acute Additional A&P Information Anemia, hemoglobin currently stable. Recheck tomorrow Thrombocytopenia. Resolved at last check Acute on chronic renal failure, significantly improved Transaminitis. Ammonia level normal. RUQ USG without acute pathology. Hepatitis serology negative for acute hepatitis. Significantly improved GI prophylaxis, Protonix Full code DVt ppx: lovenox May require long-term care facility Attestations Medical Necessity Statement*: Needs continued hospital stay for IV antibiotics secondary aspiration pneumonitis, support of respiratory failure with BiPAP following aortic surgery and therapies for CVA. Coding Level of Care Code Acute Pharmaceutical Laboratory Technician for [facility] Fwd Diagnoses Status post aortic valve replacement with bioprosthetic valve Z95.3 Chronic obstructive pulmonary disease, unspecified J44.9 COPD type: unspecified COPD Bipolar affective disorder F31.9 HTN (hypertension) I10 Hypertension type: essential hypertension CVA (cerebral vascular accident) I63.89 CVA mechanism: other Pulmonary edema J81.0 Chronicity: acute Aspiration into airway T17.908A
[2019-10-31] MEDS: metoprolol tartrate 50 mg Tablet PO ×2 (09:24→17:41)
[2019-10-31] MEDS: amlodipine 5 mg Tablet 10 MG PO (09:24)
[2019-10-31] MEDS: aspirin 81 mg Chew Tablet PO (09:24)
[2019-10-31] MEDS: pantoprazole DR 40 mg Tablet NG-TUBE (09:24)
[2019-10-31] MEDS: chlorhexidine gluconate 0.12% Btl 473 mL 15 ML MUCOUS MEM ×2 (09:25→17:42)
[2019-10-31] MEDS: venlafaxine 75 mg Tablet OG-TUBE ×2 (09:51→17:41)
[2019-10-31] MEDS: hyDRALAzine 25 mg Tablet PO ×3 (09:51→20:48)
[2019-10-31] MEDS: potassium chloride oral liq 20 mEq/15 mL UDC 40 MEQ OG-TUBE (09:51)
[2019-10-31] MEDS: losartan 50 mg Tablet PO ×2 (09:51→17:41)
--- NOTE | 2019-10-31 10:59 | PC.NURSE ---
ACTIVITY Patient has become more mobile in bed. Patient moves legs side to side and lifts them up at the bend of her knee. Patient also has attempted to turn onto side a couple of times. Patient being repositioned and is increasingly able to reposition herself slightly.
--- NOTE | 2019-10-31 11:03 | PC.NURSE ---
RESPIRATORY UPDATE Patient becomes increasingly anxious when on BIPAP. Patient on BIPAP for approximately 2 hours. Patient taken off of BIPAP and put on 2L O2 NC. Patient O2 saturation of 99%. Will continue to monitor respiratory status.
[2019-10-31 11:24] LABS: Glucose Point of Care 143 mg/dL (70-110)
--- NOTE | 2019-10-31 11:38 | PC.NURSE ---
NITRO DRIP TITRATION Patient's nitroglycerin drip was titrated to 80 mcg/min by night shift supervisor nurse at 0229. When coming onto shift it was at 60 mcg/min. First titration for day shift nurse was at 1100 and was decreased to 50 mcg/min.
--- NOTE | 2019-10-31 12:22 | P.PN_ITS ---
Subjective Subjective: Interval history: Patient remained short of breath with fluctuating blood pressure appeared to be dry patient has distended abdomen with no bowel sounds. She follows command move the right hand, she is on BiPAP. Patient has brief episode of atrial fibrillation aborted with beta-bairon Medications: Reviewed: Yes Medication Review Details: Current Medications Amlodipine Besylate (Norvasc) 5 mg PO DAILY [facility] Last Admin: 10/30/19 08:21 Dose: 5 mg Documented by: Aspirin (Aspirin Chewable) 81 mg PO DAILY [facility] Last Admin: 10/30/19 08:21 Dose: 81 mg Documented by: Atorvastatin Calcium (Lipitor) 40 mg PO BEDTIME [facility] Last Admin: 10/24/19 20:44 Dose: 40 mg Documented by: Chlorhexidine Gluconate (Perigard) 15 ml MUCOUS MEM BID [facility] Last Admin: 10/30/19 08:22 Dose: 1 dose Documented by: Enoxaparin Sodium (Lovenox) 40 mg SUBCUT Q24H [facility] Last Admin: 10/30/19 15:18 Dose: 40 mg Documented by: Epinephrine (Vaponephrine) 0.5 ml INHALATION Q6H.RESPIRATORY PRN PRN Reason: Stridor Gabapentin (Neurontin) 100 mg PO DAILY [facility] Last Admin: 10/30/19 08:21 Dose: 100 mg Documented by: Glucagon (Glucagen) 1 mg IM ONCE PRN; Protocol PRN Reason: Adult Acute Hypoglycemia Prot Piperacillin Sod/Tazobactam (Sod 3.375 gm/ Sodium Chloride) 50 mls @ 12.5 mls/hr IV Q8H [facility]; Protocol Last Admin: 10/30/19 10:21 Dose: 12.5 mls/hr Documented by: Nitroglycerin/Dextrose (Nitroglycerin Drip) 50 mg in 250 mls @ 0 mls/hr IV .Q0M [facility]; Protocol Last Titration: 10/30/19 15:19 Dose: 25 mcg/min, 7.5 mls/hr Documented by: Insulin Aspart (Novolog) 0 unit SUBCUT WM&BEDTIME [facility]; Protocol Last Admin: 10/30/19 11:47 Dose: Not Given Documented by: Metoprolol Tartrate (Lopressor) 50 mg PO BID [facility] Last Admin: 10/30/19 10:43 Dose: 50 mg Documented by: Metoprolol Tartrate (Metoprolol Tartrate) 5 mg IV Q6H PRN PRN Reason: SVT Nitroglycerin (Nitro-Bid) 1 inch TOPICAL Q6H [facility] Last Admin: 10/30/19 15:18 Dose: 1 inch Documented by: Pantoprazole Sodium (Protonix) 40 mg NG-TUBE DAILY [facility] Last Admin: 10/30/19 08:21 Dose: 40 mg Documented by: Venlafaxine HCl (Effexor Xr) 150 mg PO DAILY [facility] Last Admin: 10/30/19 08:21 Dose: 150 mg Documented by: Vitals/I&O/Wt Last Vital Signs Temp 98.8 F 10/31/19 06:45 Pulse 83 10/31/19 12:00 Resp 39 H 10/31/19 12:00 BP 121/94 10/31/19 12:00 Pulse Ox 97 10/31/19 12:00 10/30/19 10/31/19 10/31/19 22:59 06:59 14:59 Intake Total 109.200 / 174.340 257.4 / 431.740 135.5 / 135.5 Output Total 445 / 775 230 / 1005 160 / 160 Balance -335.800 / -600.660 27.4 / -573.260 -24.5 / -24.5 Weight last 48 hrs Weight 176 lb 12.8 oz Weight 133 lb Physical Exam Narrative: EXAM NARRATIVE: GENERAL: Patient open her eye on command did not squeeze my hand NECK: No jugular vein distension. HEENT: No cyanosis. No icterus. No pallor. HEART: Regular S1 and S2. No murmur, rub or gallop. LUNGS: Clear to auscultate bilaterally. ABDOMEN: mild firm, nontender and mild distended. no bowel sounds. No guarding, rebound or tenderness. CENTRAL NERVOUS SYSTEM: Right arm weakness however she is moving it but cannot tax representative EXTREMITIES: Lower extremities without edema bilaterally. Urinary Catheter Management^: Mccabe: Cath Placed During This Visit: yes Reason for Continuing Indwelling Catheter: Accurate Measurement of Urinary Output in Critically Ill Patients Urinary Catheter Date of Insertion: 10/17/19 Urinary Catheter Time of Insertion: 08:12 Data : 10/30/19 03:30 10/31/19 03:11 Micro: Microbiology 10/31/19 03:12 Blood Culture - Preliminary Blood SPECIMEN COLLECTED 10/31/19 03:11 Blood Culture - Preliminary Blood SPECIMEN COLLECTED 10/27/19 11:20 Gram Stain - Final Sputum - Endotracheal Tube Aspirate Sputum Culture - Final Serratia marcescens A&P Assessment and plan (1) Postoperative atrial fibrillation: Currently in sinus rhythm continue optimizing beta-bairon. Since patient has not been in atrial fibrillation longer than few hours and there is no appendage clot therefore we may can hold for full anticoagulation now however if patient showed more episodes of A. fib we may will start her on oral anticoagulant Status: Acute (2) Pulmonary edema: Currently well compensated. Continue medicine Status: Acute Qualifiers: Chronicity: acute Qualified Code(s): J81.0 - Acute pulmonary edema (3) Acute kidney injury: Improved. Status: Acute (4) CVA (cerebral vascular accident): Remained stable Status: Acute Qualifiers: CVA mechanism: other Qualified Code(s): I63.89 - Other cerebral infarction (5) S/P AVR (aortic valve replacement): Stable no thrombus noted on MOISE Status: Acute (6) Chronic obstructive pulmonary disease, unspecified: Continue on the current treatment Status: Acute Qualifiers: COPD type: unspecified COPD Qualified Code(s): J44.9 - Chronic obstructive pulmonary disease, unspecified (7) HTN (hypertension): Patient has stage II hypertension. I may start her on amlodipine 5 mg twice daily and continue on the metoprolol as mentioned above. She is on IV nitroglycerin as well. Based on the clinical response, further management decisions will be made. Status: Acute Qualifiers: Hypertension type: essential hypertension Qualified Code(s): I10 - Essential (primary) hypertension (8) Constipation: Patient can be given milk of magnesia for PRN basis. Status: Acute Additional A&P Information After reviewing the above and also based on the patient's clinical progress, further management decisions will be made. Attestations Medical Necessity Statement*: As per medicine surgery Coding Level of Care Code Acute Maintainability Engineer for 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 Diagnoses Postoperative atrial fibrillation I97.89; I48.91 Pulmonary edema J81.0 Chronicity: acute Acute kidney injury N17.9 CVA (cerebral vascular accident) I63.89 CVA mechanism: other S/P AVR (aortic valve replacement) Z95.2 Chronic obstructive pulmonary disease, unspecified J44.9 COPD type: unspecified COPD HTN (hypertension) I10 Hypertension type: essential hypertension Constipation K59.00
--- NOTE | 2019-10-31 12:40 | P.PN_ITS ---
Subjective Subjective: Interval history: The patient was seen and examined. She is awake and alert and able to follow commands. The patient continues to get tachypneic although her oxygen saturation is in the mid 90s. The patient is currently on a nitroglycerin drip. The patient was extubated on Thursday and has done well over the weekend. Medications: Reviewed: Yes Vitals/I&O/Wt Last Vital Signs Temp 98.8 F 10/31/19 06:45 Pulse 83 10/31/19 12:00 Resp 39 H 10/31/19 12:00 BP 121/94 10/31/19 12:00 Pulse Ox 97 10/31/19 12:00 10/30/19 10/31/19 10/31/19 22:59 06:59 14:59 Intake Total 109.200 / 174.340 257.4 / 431.740 221.075 / 221.075 Output Total 445 / 775 230 / 1005 410 / 410 Balance -335.800 / -600.660 27.4 / -573.260 -188.925 / -188.925 Weight last 48 hrs Weight 176 lb 12.8 oz Weight 133 lb Physical Exam Narrative: EXAM NARRATIVE: General: The patient tachypneic HEENT: No gaze preference Respiratory: Reduced breath sound to the right lower lung base posteriorly, occasional crackles Cardiovascular: Regular rate and rhythm, S1-S2 present, no murmur, improved bilateral peripheral edema Abdomen: Soft, nondistended, nontender, positive bowel sounds Skin: No rash, no evidence of erythema nodosum or multiforme. Neuro: Patient is following commands and moving all extremities Urinary Catheter Management^: Mccabe: Cath Placed During This Visit: yes Reason for Continuing Indwelling Catheter: Accurate Measurement of Urinary Output in Critically Ill Patients Urinary Catheter Date of Insertion: 10/17/19 Urinary Catheter Time of Insertion: 08:12 Data : 10/30/19 03:30 10/31/19 03:11 Micro: Microbiology 10/31/19 03:12 Blood Culture - Preliminary Blood SPECIMEN COLLECTED 10/31/19 03:11 Blood Culture - Preliminary Blood SPECIMEN COLLECTED 10/27/19 11:20 Gram Stain - Final Sputum - Endotracheal Tube Aspirate Sputum Culture - Final Serratia marcescens Other data: I have reviewed the patient's laboratory, microbiologic and radiologic data. The patient continues to have leukocytosis. Interestingly, the patient had a positive Serratia culture from endotracheal aspirate on October 26. The patient had been on Levaquin at that time. Currently the patient is on Zosyn. The chest x-ray from today revealed improved pleural effusion. The patient continues to have right-sided small pleural effusion. A&P Assessment and plan (1) Acute respiratory failure with hypoxia: The patient has done well following extubation however she continues to be tachypneic in the mid 30s. The patient likely has profound muscle weakness and deconditioning from prolonged intubation. Interestingly, her endotracheal aspirate culture from October 26 grew Serratia although the patient was on Levaquin. Her antibiotic since then has been changed to Zosyn. The patient has a weak cough reflex this will lead to pooling of airway secretion which will also probably make her respiratory status worse. She does not seem to be profoundly volume overloaded at this time. I would recommend trying high flow nasal cannula intermittently with BiPAP even if the oxygen saturation is well. The high flow nasal cannula would provide some PEEP. High flow nasal cannula has been shown to prevent intubation in the setting. The patient will also require physical therapy and aggressive pulmonary t oileting. Would also recommend starting the patient on incentive spirometry. Hopefully will be able to prevent reintubation. If the patient does not of getting reintubated she will most likely need tracheostomy. The patient needs to stay in semi-upright position. Laying the patient flat will cause atelectasis of the lower lobe and likely cause her respiratory status to be worse. Status: Acute (2) CVA (cerebral vascular accident): The patient does not seem to have any significant focal weakness. However overall the patient is profoundly weak. Her mental status is improved significantly Status: Acute Qualifiers: CVA mechanism: other Qualified Code(s): I63.89 - Other cerebral infarction (3) S/P AVR (aortic valve replacement): Patient is status post bioprosthetic aortic valve replacement for severe aortic stenosis. Currently she is on a nitro drip for hypertension. The cardiology team and the cardiothoracic surgery team is following the patient. Status: Acute Attestations Medical Necessity Statement*: Will defer to the primary team Coding Level of Care Code Acute Medical Office Receptionist for Pastor Betty Diagnoses Acute respiratory failure with hypoxia J96.01 CVA (cerebral vascular accident) I63.89 CVA mechanism: other S/P AVR (aortic valve replacement) Z95.2
[2019-10-31] MEDS: enoxaparin 40 mg/0.4 mL Syringe SUBCUT (14:22)
--- NOTE | 2019-10-31 15:27 | PC.RESP ---
Pulmonary Rehab information sent to patient.
[2019-10-31] MEDS: magnesium hydroxide 30 mL UDC PO (15:59)
[2019-10-31 17:13] LABS: Glucose Point of Care 131 mg/dL (70-110)
[2019-10-31] MEDS: metoprolol tartrate 1 mg/1 mL SDV 5 mL 5 MG IV ×2 (17:39→22:41)
--- NOTE | 2019-10-31 17:54 | PC.NURSE ---
SHIFT SUMMARY Patient has been increasingly more alert today. Patient's mental clarity is improving, and patient is oriented to person and place. Patient was on 3.5 L O2 NC this AM when patient began using abdominal muscles to breathe and patient was placed back on BIPAP. Patient has been on BIPAP majority of day, and on HiFlow in between BIPAP intervals. Patient O2 saturations have remained above 96% and abdominal muscle use has decreased with BIPAP/HiFlow use. Patient has had 3 runs of A-fib with RVR and bigeminy separately today at 0715, 1445, and 1730. Patient has been asymptomatic with each. 2 mg IV metoprolol given at 1739 to convert patient to SR in 80s. Patient is now maintaining SR and is not showing any further signs of distress. Patient began shift on 60 mcg/min nitroglycerin drip and patient has been weaned off nitroglycerin drip throughout the day. Patient's blood pressure remains stable and will continue to monitor closely for increase in blood pressure for the remainder of the shift.
[2019-10-31 20:38] LABS: Glucose Point of Care 111 mg/dL (70-110)
--- NOTE | 2019-10-31 22:45 | PC.NURSE ---
5 mg IV metoprolol administered for HR > 170 SVT/Afib. Pt converted to sinus before Ekg could be performed. Lots of ectopy.
[2019-11-01] VITALS (84 sets, daily range): BP systolic 98–194; BP diastolic 42–119; PULSE 64–169; RESP 21–38; TEMP 36.8–37.2; O2SAT 91–99
[2019-11-01] MEDS: nitroglycerin drip 50 MG/250 ML PREMIX IV (00:33)
--- NOTE | 2019-11-01 01:10 | PC.NURSE ---
Pt switching between bipap and high flow nc. Tachypneic, increased work of breathing. Pt looks uncomfortable, vaguely denies pain.Nitro gtt starte for increased blood pressures
--- NOTE | 2019-11-01 01:47 | ECG_ITS ---
[facility] Test Date: 2019-11-01 Pat Name: Nancy Brasher Department: Room: ICU11 Gender: Female [employer] Fre[employer]er: : 1945 Requested By: Toodalu Pedro Order Number: [id number] Gregory MD: Beltran Yeboah M.D. Measurements Intervals [place] Rate: 165 P: IA: -1 QRS: 71 QRSD: 78 T: 265 QT: 246 QTc: 408 Interpretive Statements ATRIAL FLUTTER/TACHYCARDIA WITH RAPID VENTRICULAR RESPONSE ST DEVIATION AND MODERATE T-WAVE ABNORMALITY, CONSIDER LATERAL ISCHEMIA [-0.1+ mV T WAVE IN I/aVL/V5/V6] ST DEVIATION AND MODERATE T-WAVE ABNORMALITY, CONSIDER INFERIOR ISCHEMIA [-0.1+ mV T WAVE IN II/aVF] INTERPRETATION BASED ON A DEFAULT AGE OF 40 YEARS Compared to ECG 10/22/2019 16:33:30 Sinus rhythm no longer present Left bundle-branch block no longer present T-wave abnormality still present Possible ischemia still present Electronically Signed On 11-01-2019 16:54:32 CDT by Beltran Yeboah M.D. [id number] ennis
[2019-11-01] MEDS: piperacillin-tazobactam 3.375 GM in sodium chloride 0.9% (plus) 50 ML IV ×3 (03:27→17:08)
[2019-11-01] MEDS: nitroglycerin 1 gm/inch oint Pkt 1 INCH TOPICAL ×3 (03:28→15:26)
[2019-11-01 05:49] LABS: Basophils # 0.1 10^3/uL (0.0-0.1); Basophils % 0.8 %; Eosinophils # 0.5 10^3/uL (0.0-0.8); Hematocrit 30.6 % (37.0-47.0); Hemoglobin 9.4 g/dL (11.5-15.3); Lymphocytes # 1.5 10^3/uL (0.8-4.8); Lymphocytes % 9.3 %; Mean Corpuscular HGB Conc 30.7 g/dL (30.0-36.0); Mean Corpuscular Hemoglobin 30.1 pg (28.0-34.0); Mean Corpuscular Volume 98.1 fL (81-99); Mean Platelet Volume 9.8 fL (7.4-10.4); Monocytes # 1.6 10^3/uL (0.2-0.9); Monocytes % 10.1 %; Neutrophils # 12.1 10^3/uL (1.8-7.7); Neutrophils % 75.8 %; Nucleated Red Blood Cells % 0 %; Platelet Count 274 10^3/cmm (130-400); Red Blood Count 3.12 10^6/uL (4.1-5.3); Red Cell Distribution Width 13.6 % (12.1-15.1); White Blood Count 15.9 10^3/uL (4.0-10.0)
[2019-11-01 06:43] LABS: Anion Gap 13.7 (5-19); Blood Urea Nitrogen 28 mg/dL (8-23); Calcium 8.5 mg/dL (8.5-10.5); Carbon Dioxide 29 mmol/L (22-29); Chloride 106 mmol/L (98-107); Glucose 128 mg/dL (65-115); Osmolality Calculated 299 mOsm/kg (285-295); Potassium 3.7 mmol/L (3.5-5.1); Sodium 145 mmol/L (136-145)
--- NOTE | 2019-11-01 07:12 | PM.PN ---
Subjective Subjective: Interval history: Nadege is now 2 weeks status post AVR. She has had a difficult postoperative course. Over the past 48 hours her mental status has markedly improved though it appears her biggest difficulty now is respiratory, which was my fear preoperatively. Today's chest x-ray reveals what may be some modest improvement in the right pleural effusion though overall she has a changes consistent with her advanced lung disease. Her cardiac silhouette is about the same. It is troubling that her white count is drifting up, now at 15.9. Renal function remained stable. Last report of her sternotomy incision is that it remains clean, dry, with a stable sternum. I will assess the wound later this evening, as I have surgery this morning I do not wish to because of potential cross-contamination prior to my operative procedure. O2 saturation remains at 93% on a low FiO2, though she does appear to be working a fair amount. Nurses report this is unchanged throughout the night. She did have an episode of A. fib with RVR and was placed on amiodarone, though she now appears to be in sinus rhythm. Vitals/I&O/Wt Last Vital Signs Temp 98.2 F 11/01/19 05:15 Pulse 77 11/01/19 06:05 Resp 28 H 11/01/19 06:05 BP 155/91 11/01/19 06:08 Pulse Ox 94 11/01/19 06:05 10/31/19 11/01/19 11/01/19 22:59 06:59 14:59 Intake Total 120.875 / 466.025 100 / 566.025 Output Total 225 / 635 450 / 1085 Balance -104.125 / -168.975 -350 / -518.975 Weight last 48 hrs Weight 176 lb 12.8 oz Physical Exam Urinary Catheter Management^: Mccabe: Cath Placed During This Visit: yes Reason for Continuing Indwelling Catheter: Accurate Measurement of Urinary Output in Critically Ill Patients Urinary Catheter Date of Insertion: 10/17/19 Urinary Catheter Time of Insertion: 08:12 Data : 11/01/19 05:13 11/01/19 05:13 Micro: Microbiology 10/31/19 03:11 Blood Culture - Preliminary Blood NEGATIVE TO DATE 10/31/19 03:12 Blood Culture - Preliminary Blood NEGATIVE TO DATE A&P Assessment and plan (1) Status post aortic valve replacement with bioprosthetic valve: 15 days status post AVR with respiratory failure and mental status change which has improved. Continuing supportive care. Consider nutritional support I greatly and sincerely appreciate all the efforts expertise of our medical colleagues. Status: Acute Attestations Medical Necessity Statement*: 2-week status post aVR with respiratory failure Time Spent in Patient Care: less than 15 minutes Coding Level of Care Code Acute Water Resources Technical Officer for 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 Diagnoses Status post aortic valve replacement with bioprosthetic valve Z95.3
--- NOTE | 2019-11-01 07:38 | PM.PN ---
Subjective Subjective: Interval history: Hope is alert, tries to mouth some words. Profoundly weak. Currently off BiPAP. Medications: Reviewed: Yes Vitals/I&O/Wt Last Vital Signs Temp 98.2 F 11/01/19 05:15 Pulse 77 11/01/19 06:05 Resp 28 H 11/01/19 06:05 BP 155/91 11/01/19 06:08 Pulse Ox 94 11/01/19 06:05 10/31/19 11/01/19 11/01/19 22:59 06:59 14:59 Intake Total 120.875 / 466.025 100 / 566.025 Output Total 225 / 635 450 / 1085 Balance -104.125 / -168.975 -350 / -518.975 Weight last 48 hrs Weight 80.195 kg Physical Exam Narrative: EXAM NARRATIVE: General exam is a t very weak white female with NG in place Cardiovascular regular rate and rhythm without murmur. Telemetry indicates normal sinus rhythm Lungs diminished breath sounds bilaterally. Occasional wheeze Abdomen is soft, positive bowel sounds Extremities no cyanosis clubbing or edema Urinary Catheter Management^: Mccabe: Cath Placed During This Visit: yes Reason for Continuing Indwelling Catheter: Accurate Measurement of Urinary Output in Critically Ill Patients Urinary Catheter Date of Insertion: 10/17/19 Urinary Catheter Time of Insertion: 08:12 Data : 11/01/19 05:13 11/01/19 05:13 Micro: Microbiology 10/31/19 03:11 Blood Culture - Preliminary Blood NEGATIVE TO DATE 10/31/19 03:12 Blood Culture - Preliminary Blood NEGATIVE TO DATE A&P Assessment and plan (1) Status post aortic valve replacement with bioprosthetic valve: Postop aortic valve replacement with bioprosthetic valve performed by Dr. Luciano on October 17 Extubtaed to bipap, needs intermittently during the day, limited by lethargy and poor inspiratory effort. Still on BiPAP at this time. Had prolonged intubation secondary to left MCA CVA. Will require rehab. Secondary to severe weakness long-term care hospital is best option.. Status: Acute (2) Chronic obstructive pulmonary disease, unspecified: No evidence of exacerbation currently. Status: Acute Qualifiers: COPD type: unspecified COPD Qualified Code(s): J44.9 - Chronic obstructive pulmonary disease, unspecified (3) Bipolar affective disorder: Effexor has been reinitiated at 75 mg twice daily Status: Acute (4) HTN (hypertension): Now off nitroglycerin drip. Continue Norvasc ,metoprolol, hydralazine, nitroglycerin ointment, losartan Status: Acute Qualifiers: Hypertension type: essential hypertension Qualified Code(s): I10 - Essential (primary) hypertension (5) CVA (cerebral vascular accident): Acute left MCA CVA, noted following aortic valve replacement. Continue aspirin Statin on hold secondary to transaminitis which is improving. Can possibly rechallenge in the near future. MOISE without obvious thrombus Continue therapies. Speech therapy evaluating ability to take p.o. Not ready as of yesterday. NG feedings will be initiated. Status: Acute Qualifiers: CVA mechanism: other Qualified Code(s): I63.89 - Other cerebral infarction (6) Pulmonary edema: Currently compensated Status: Acute Qualifiers: Chronicity: acute Qualified Code(s): J81.0 - Acute pulmonary edema (7) Aspiration into airway: Concern of ventilator associated pneumonia during this hospital stay with fever. Possible aspiration on first extubation attempt following which she developed flash pulmonary edema and needed reintubation. Continue Zosyn currently Still with acute respiratory failure requiring BiPAP. Status: Acute Additional A&P Information Atrial fibrillation. Placed on an amiodarone drip. Cardiology managing. She is converted to sinus rhythm. Anemia, hemoglobin slightly decreased. Continue to follow. A very small amount of blood was noted around the Mccabe this morning. Thrombocytopenia. Resolved Acute on chronic renal failure, resolved Transaminitis. Ammonia level normal. RUQ USG without acute pathology. Hepatitis serology negative for acute hepatitis. Significantly improved GI prophylaxis, Protonix Full code DVt ppx: lovenox Will need long-term care placement Initiate tube feeds. Dietary consult. Attestations Medical Necessity Statement*: Needs continued hospitalization for IV antibiotics secondary to concern of pneumonia, profound weakness following aortic valve replacement with ongoing respiratory failure requiring BiPAP intermittently. Coding Level of Care Code Acute Director Of Primary for Chg Fwd Diagnoses Status post aortic valve replacement with bioprosthetic valve Z95.3 Chronic obstructive pulmonary disease, unspecified J44.9 COPD type: unspecified COPD Bipolar affective disorder F31.9 HTN (hypertension) I10 Hypertension type: essential hypertension CVA (cerebral vascular accident) I63.89 CVA mechanism: other Pulmonary edema J81.0 Chronicity: acute Aspiration into airway T17.598M
[2019-11-01 07:43] LABS: Glucose Point of Care 109 mg/dL (70-110)
[2019-11-01] MEDS: hyDRALAzine 25 mg Tablet PO ×2 (09:03→15:26)
[2019-11-01] MEDS: pantoprazole DR 40 mg Tablet NG-TUBE (09:03)
[2019-11-01] MEDS: amlodipine 5 mg Tablet 10 MG PO (09:03)
[2019-11-01] MEDS: venlafaxine 75 mg Tablet OG-TUBE ×2 (09:03→17:08)
[2019-11-01] MEDS: losartan 50 mg Tablet PO ×2 (09:03→17:08)
[2019-11-01] MEDS: aspirin 81 mg Chew Tablet PO (09:04)
[2019-11-01] MEDS: chlorhexidine gluconate 0.12% Btl 473 mL 15 ML MUCOUS MEM ×2 (09:04→17:13)
[2019-11-01] MEDS: metoprolol tartrate 50 mg Tablet PO ×2 (09:04→17:08)
--- NOTE | 2019-11-01 09:49 | P.PN_ITS ---
Subjective Subjective: Interval history: Patient had episode of A. fib with rapid ventricle response. She was started on amiodarone last night. Today this morning she is sitting on the chair she is relatively more alert, she had good bowel movement last night Medications: Reviewed: Yes Medication Review Details: Current Medications Amlodipine Besylate (Norvasc) 5 mg PO DAILY [facility] Last Admin: 10/30/19 08:21 Dose: 5 mg Documented by: Aspirin (Aspirin Chewable) 81 mg PO DAILY [facility] Last Admin: 10/30/19 08:21 Dose: 81 mg Documented by: Atorvastatin Calcium (Lipitor) 40 mg PO BEDTIME [facility] Last Admin: 10/24/19 20:44 Dose: 40 mg Documented by: Chlorhexidine Gluconate (Perigard) 15 ml MUCOUS MEM BID [facility] Last Admin: 10/30/19 08:22 Dose: 1 dose Documented by: Enoxaparin Sodium (Lovenox) 40 mg SUBCUT Q24H [facility] Last Admin: 10/30/19 15:18 Dose: 40 mg Documented by: Epinephrine (Vaponephrine) 0.5 ml INHALATION Q6H.RESPIRATORY PRN PRN Reason: Stridor Gabapentin (Neurontin) 100 mg PO DAILY [facility] Last Admin: 10/30/19 08:21 Dose: 100 mg Documented by: Glucagon (Glucagen) 1 mg IM ONCE PRN; Protocol PRN Reason: Adult Acute Hypoglycemia Prot Piperacillin Sod/Tazobactam (Sod 3.375 gm/ Sodium Chloride) 50 mls @ 12.5 mls/hr IV Q8H [facility]; Protocol Last Admin: 10/30/19 10:21 Dose: 12.5 mls/hr Documented by: Nitroglycerin/Dextrose (Nitroglycerin Drip) 50 mg in 250 mls @ 0 mls/hr IV .Q0M [facility]; Protocol Last Titration: 10/30/19 15:19 Dose: 25 mcg/min, 7.5 mls/hr Documented by: Insulin Aspart (Novolog) 0 unit SUBCUT WM&BEDTIME [facility]; Protocol Last Admin: 10/30/19 11:47 Dose: Not Given Documented by: Metoprolol Tartrate (Lopressor) 50 mg PO BID [facility] Last Admin: 10/30/19 10:43 Dose: 50 mg Documented by: Metoprolol Tartrate (Metoprolol Tartrate) 5 mg IV Q6H PRN PRN Reason: SVT Nitroglycerin (Nitro-Bid) 1 inch TOPICAL Q6H [facility] Last Admin: 10/30/19 15:18 Dose: 1 inch Documented by: Pantoprazole Sodium (Protonix) 40 mg NG-TUBE DAILY [facility] Last Admin: 10/30/19 08:21 Dose: 40 mg Documented by: Venlafaxine HCl (Effexor Xr) 150 mg PO DAILY [facility] Last Admin: 10/30/19 08:21 Dose: 150 mg Documented by: Vitals/I&O/Wt Last Vital Signs Temp 98.2 F 11/01/19 05:15 Pulse 74 11/01/19 08:23 Resp 28 H 11/01/19 08:23 BP 138/67 11/01/19 09:03 Pulse Ox 94 11/01/19 08:23 10/31/19 11/01/19 11/01/19 22:59 06:59 14:59 Intake Total 120.875 / 466.025 100 / 566.025 Output Total 225 / 635 450 / 1085 Balance -104.125 / -168.975 -350 / -518.975 Weight last 48 hrs Weight 176 lb 12.8 oz Physical Exam Narrative: EXAM NARRATIVE: GENERAL: Patient sitting in the chair breathing better on oxygen NECK: No jugular vein distension. HEENT: No cyanosis. No icterus. No pallor. HEART: Regular S1 and S2. No murmur, rub or gallop. LUNGS: Clear to auscultate bilaterally. ABDOMEN: mild firm, nontender and mild distended. no bowel sounds. No guarding, rebound or tenderness. CENTRAL NERVOUS SYSTEM: Right arm weakness however she is moving it but cannot coal hauler EXTREMITIES: Lower extremities without edema bilaterally. Urinary Catheter Management^: Mccabe: Cath Placed During This Visit: yes Reason for Continuing Indwelling Catheter: Accurate Measurement of Urinary Outp ut in Critically Ill Patients Urinary Catheter Date of Insertion: 10/17/19 Urinary Catheter Time of Insertion: 08:12 Data : 11/01/19 05:13 11/01/19 05:13 Micro: Microbiology 10/31/19 03:11 Blood Culture - Preliminary Blood NEGATIVE TO DATE 10/31/19 03:12 Blood Culture - Preliminary Blood NEGATIVE TO DATE A&P Assessment and plan (1) Status post aortic valve replacement with bioprosthetic valve: Status post aortic valve replacement. Stable from valvular perspective. Continue current regimen Status: Acute (2) Constipation: Constipation has been resolved patient has passed a bowel movement Status: Acute (3) Postoperative atrial fibrillation: Patient is on amiodarone we will switch her to the p.o. amiodarone 400 mg twice daily. I will double check with neurology before starting her on anticoagulation since she is having recurrent A. fib Status: Acute (4) S/P AVR (aortic valve replacement): Status: Acute (5) HTN (hypertension): Blood pressure is much under control. Continue current regimen. Status: Acute Qualifiers: Hypertension type: essential hypertension Qualified Code(s): I10 - Essential (primary) hypertension Additional A&P Information After reviewing the above and also based on the patient's clinical progress, further management decisions will be made. Attestations Medical Necessity Statement*: Patient require continuation hospitalization for above defined care Coding Level of Care Code Established Pt Acute Operation Supervisor for Chg Fwd Patient Type Established History Expanded Problem Focused Exam Expanded Problem Focused Medical Decision Making Moderate Complexity Diagnoses Status post aortic valve replacement with bioprosthetic valve Z95.3 Constipation K59.00 Postoperative atrial fibrillation I97.89; I48.91 S/P AVR (aortic valve replacement) Z95.2 HTN (hypertension) I10 Hypertension type: essential hypertension
[2019-11-01 11:55] LABS: Glucose Point of Care 154 mg/dL (70-110)
--- NOTE | 2019-11-01 13:09 | PC.SOCIAL ---
IM follow up explained dated timed and initialed. copy provided. Pt nodded head in agreement
--- NOTE | 2019-11-01 13:24 | PC.NURSE ---
ACTIVITY UPDATE PT and OT came in to work with patient. Patient was transferred to the bedside commode with moderate assistance and was able to stand and transfer well. Patient transferred from bedside commode to recliner and sat up in recliner from 0930 to 1200. OT helped bathe patient and wash her hair. Patient was trying to communicate, but staff was having a hard time understanding patient, so patient attempted to write what she needed on paper. Writing was hard to read, but patient was still able to hold the pen and write. Patient stated that she felt better sitting up in the chair and is now back in bed with call light in reach.
--- NOTE | 2019-11-01 14:00 | P.TS_ITS ---
Transfer Summary Providers Date of Admission: 10/17/19 05:31 Date of Discharge: 11/01/19 Attending Provider at Admission: Guerrero Luciano MD Attending Provider at Transfer: Guerrero Luciano MD Primary Care Provider: Mandeep Madrigal MD Anticipated Date of Transfer: Anticipated date of transfer: 11/01/19 Receiving Facility & Provider: Receiving Provider: [] Receiving facility: [] Diagnoses at Discharge Discharge Diagnosis (1) Status post aortic valve replacement with bioprosthetic valve: Status: Acute Problem details: Performed 10/17/[address] Luciano (2) Constipation: Status: Acute (3) Postoperative atrial fibrillation: Status: Acute Problem details: Currently on amiodarone. (4) S/P AVR (aortic valve replacement): Status: Acute (5) HTN (hypertension): Status: Acute Qualifiers: Hypertension type: essential hypertension Qualified Code(s): I10 - Essential (primary) hypertension Hospital Course Hospital Course: Nadege is a 74-year-old white female who presented to the hospital on October 16 and received an aortic valve replacement. When extubation was attempted on postoperative day #1, it was noticed that the patient had a neurologic change. CT head was negative. Neurology was consulted, and believed that the patient had had an acute left MCA CVA. A bedside limited echo did not demonstrate any thrombosis on the valve and MOISE was performed as well which confirmed this. Blood pressures were markedly high and cardiology help to manage hypertension following aortic valve surgery. There was concern for ventilator associated pneumonia secondary to fever postoperatively and broad- spectrum antibiotics were initiated. Ultimately the patient grew Serratia, and therefore therapy was narrowed to Zosyn alone which she remains on at this time. Elevated liver function tests, and acute kidney injury occurred postoperatively from which the patient slowly recovered. Patient's neurologic status did not improve initially, until October 23-. She had some fluid overload, which prevented extubation. Eventually she was extubated on October 27 to BiPAP. From October 27 until currently she has had very slow improvement. She is very weak, and requiring BiPAP intermittently. She is required amiodarone secondary to atrial fibrillation with rapid ventricular rate which is currently under control. She is still on Zosyn for concern of pneumonia. Nutrition has been started via NG tube as she is too weak to swallow at this current time. Neurologically she is able to answer some questions, and move all of her extremities equally. No gaze preference has been noted as was noted initially with the acute CVA. No failure, thrombocytopenia, transaminitis that were present early on the course have improved significantly. I have visited extensively with the patient, discharge planning team, and the patient's sister regarding long-term care hospitalization secondary to her profound weakness. This was arranged at [facility] today and the patient will be transferred for further inpatient care. At time of discharge she appeared stable. She was afebrile. She was on 30% FiO2 for high flow nasal cannula. Physical Exam Narrative: EXAM NARRATIVE: See physical exam from earlier today. Urinary Catheter Management^: Mccabe: Cath Placed During This Visit: yes Reason for Continuing Indwelling Catheter: Accurate Measurement of Urinary Output in Critically Ill Patients Urinary Catheter Date of Insertion: 10/17/19 Urinary Catheter Time of Insertion: 08:12 TS Data Data Completed and Pending: Completed Studies During Hospitalization Category Date Time Status CT angio headneck * 95163/34704 Stat Cat Scan 10/18/19 11:[address] head wo con* 7 0450 Routine Cat Scan 10/20/19 09:[address] head wo con* 7 0450 Stat Cat Scan 10/18/19 10:57 Completed CXRP [XR chest 1V portable [id number]] S tat Exams 10/17/19 21:40 Completed XR abdomen 1V* 74 018 Stat Exams 10/29/19 10:43 Completed XR chest 1V mariella ble 50965 Routine Exams 10/17/19 08:14 Completed XR chest 1V mariella ble 60435 Routine Exams 10/18/19 06:00 Completed XR chest 1V mariella ble 17635 Routine Exams 10/19/19 06:00 Completed XR chest 1V mariella ble 38648 Routine Exams 10/20/19 06:00 Completed XR chest 1V mariella ble 20494 Routine Exams 10/21/19 06:00 Completed XR chest 1V mariella ble 59636 Routine Exams 10/21/19 21:49 Completed XR chest 1V mariella ble 31021 Routine Exams 10/23/19 07:00 Completed XR chest 1V mariella ble 47235 Routine Exams 10/24/19 07:00 Completed XR chest 1V mariella ble 88446 Routine Exams 10/27/19 05:00 Completed XR chest 1V mariella ble 21465 Routine Exams 10/31/19 06:00 Completed XR chest 1V mariella ble [id number] Stat Exams 10/21/19 13:07 Completed XR chest 1V mariella ble 39213 Stat Exams 10/25/19 10:54 Completed XR chest 1V mariella ble 92800 Stat Exams 10/25/19 16:15 Completed XR chest 1V mariella ble 28557 Stat Exams 10/28/19 08:14 Completed Pathology: Surgic al [PTH] Routine Pth 10/17/19 10:56 Completed CV echo limited 9 3308 Urgent Ultrasound 10/20/19 10:27 Completed CV echo transesop hageal 17713 Routi ne Ultrasound 10/25/19 07:00 Completed US abdomen limite d 67707 Urgent Ultrasound 10/24/19 10:27 Completed Pending at discharge Category Date Time Status Blood Culture AM LABS Lab 10/31/19 03:12 Results CBC Auto Diff [Co mplete Blood Count w/Auto] AM LABS Lab 11/02/19 04:00 Ordered Clostridioides Di fficile PCR Routin e Lab 10/27/19 18:03 Uncollected Comprehensive Met abolic Panel AM LA BS Lab 11/02/19 04:00 Ordered Labs from last 24 hours 11/01/19 11/01/19 11/01/19 11:35 07:38 05:13 WBC RBC Hgb Hct MCV MCH MCHC RDW Plt Count MPV Neut % (Auto) Lymph % (Auto) Haines % (Auto) Eos % (Auto) Baso % (Auto) Neut # (Auto) Lymph # (Auto) Haines # (Auto) Eos # (Auto) Baso # (Auto) Nucleated RBC % (a uto) Nucleated RBCs # Sodium 145 Potassium 3.7 Chloride 106 Carbon Dioxide 29 Anion Gap 13.7 BUN 28 H Creatinine 1.0 H Glucose 128 H POC Glucose 154 109 Calculated Osmolal ity 299 H Calcium 8.5 11/01/19 10/31/19 10/31/19 05:13 20:35 17:10 WBC 15.9 H RBC 3.12 L Hgb 9.4 L Hct 30.6 L MCV 98.1 MCH 30.1 MCHC 30.7 RDW 13.6 Plt Count 274 MPV 9.8 Neut % (Auto) 75.8 Lymph % (Auto) 9.3 Haines % (Auto) 10.1 Eos % (Auto) 3.0 Baso % (Auto) 0.8 Neut # (Auto) 12.1 H Lymph # (Auto) 1.5 Haines # (Auto) 1.6 H Eos # (Auto) 0.5 Baso # (Auto) 0.1 Nucleated RBC % (a uto) 0 Nucleated RBCs # 0.0 Sodium Potassium Chloride Carbon Dioxide Anion Gap BUN Creatinine Glucose POC Glucose 111 131 Calculated Osmolal ity Calcium Vitals: Last Vital Signs Temp 98.9 F 11/01/19 13:10 Pulse 67 11/01/19 12:15 Resp 32 H 11/01/19 12:15 BP 149/65 11/01/19 12:15 Pulse Ox 92 11/01/19 12:15 TS Medications Medications Home Medications venlafaxine 150 mg PO DAILY 05/16/19 [History Confirmed 10/17/19] aripiprazole 10 mg tablet 10 mg PO DAILY 07/26/19 [History Confirmed 10/17/19] cetirizine 10 mg tablet 5 mg PO DAILY 07/26/19 [History Confirmed 10/17/19] dexlansoprazole 60 mg capsule,biphase delayed release 60 mg PO DAILY 07/26/19 [History Confirmed 10/17/19] doxepin 3 mg tablet 3 mg PO DAILY tab 07/26/19 [History Confirmed 10/17/19] estradiol 0.5 mg tablet 0.5 mg PO DAILY 07/26/19 [History Confirmed 10/17/19] fluticasone propionate 50 mcg/actuation nasal spray,suspension 1 spray INTRANASAL DAILY 07/26/19 [History Confirmed 10/17/19] gabapentin 100 mg capsule 100 mg PO DAILY 07/26/19 [History Confirmed 10/17/19] lisinopril 2.5 mg tablet 2.5 mg PO DAILY 07/26/19 [History Confirmed 10/17/19] rivastigmine 4.6 mg TRANSDERMA DAILY 07/26/19 [History Confirmed 10/17/19] simvastatin 40 mg tablet 40 mg PO DAILY 07/26/19 [History Confirmed 10/17/19] fluticasone 100 mcg-salmeterol 50 mcg/dose blistr powdr for inhalation 1 inh INHALATION Q12H 30 Days #60 each 09/14/19 [Rx Confirmed 10/12/19] Active Medications Acetaminophen (Tylenol) 650 mg PO Q4H PRN PRN Reason: MILD PAIN OR INCREASE TEMP Amlodipine Besylate (Norvasc) 10 mg PO DAILY [facility] Last Admin: 11/01/19 09:03 Dose: 10 mg Documented by: Apixaban (Eliquis) 5 mg PO BID [facility] Aspirin (Aspirin Chewable) 81 mg PO DAILY [facility] Last Admin: 11/01/19 09:04 Dose: 81 mg Documented by: Atorvastatin Calcium (Lipitor) 40 mg PO BEDTIME [facility] Last Admin: 10/24/19 20:44 Dose: 40 mg Documented by: Chlorhexidine Gluconate (Perigard) 15 ml MUCOUS MEM BID [facility] Last Admin: 11/01/19 09:04 Dose: 1 dose Documented by: Glucagon (Glucagen) 1 mg IM ONCE PRN; Protocol PRN Reason: Adult Acute Hypoglycemia Prot Hydralazine HCl (Apresoline) 10 mg IVP Q4H PRN PRN Reason: SBP >180 Hydralazine HCl (Apresoline) 25 mg PO TID [facility] Last Admin: 11/01/19 09:03 Dose: 25 mg Documented by: Piperacillin Sod/Tazobactam (Sod 3.375 gm/ Sodium Chloride) 50 mls @ 12.5 mls/hr IV Q8H [facility]; Protocol Last Admin: 11/01/19 10:56 Dose: 12.5 mls/hr Documented by: Amiodarone HCl 900 mg/Dextrose/ IV Miscellaneous Supplies 518 mls @ 0 mls/hr IV .Q0M [facility]; Protocol Last Titration: 11/01/19 08:30 Dose: 0.5 mg/min, 17.3 mls/hr Documented by: Insulin Aspart (Novolog) 0 unit SUBCUT WM&BEDTIME [facility]; Protocol Last Admin: 11/01/19 12:08 Dose: 2 unit Documented by: Losartan Potassium (Cozaar) 50 mg PO BID [facility] Last Admin: 11/01/19 09:03 Dose: 50 mg Documented by: Magnesium Hydroxide (Milk Of Magnesia) 30 ml PO DAILY PRN PRN Reason: CONSTIPATION Last Admin: 10/31/19 15:59 Dose: 30 ml Documented by: Metoprolol Tartrate (Lopressor) 50 mg PO BID [facility] Last Admin: 11/01/19 09:04 Dose: 50 mg Documented by: Metoprolol Tartrate (Metoprolol Tartrate) 5 mg IV Q6H PRN PRN Reason: SVT Last Admin: 10/31/19 22:41 Dose: 5 mg Documented by: Nitroglycerin (Nitro-Bid) 1 inch TOPICAL Q6H [facility] Last Admin: 11/01/19 09:02 Dose: 1 inch Documented by: Pantoprazole Sodium (Protonix) 40 mg NG-TUBE DAILY [facility] Last Admin: 11/01/19 09:03 Dose: 40 mg Documented by: Venlafaxine HCl (Effexor) 75 mg OG-TUBE BID [facility] Last Admin: 11/01/19 09:03 Dose: 75 mg Documented by: Discharge Plan Discharge Patient Disposition: Home, Self-Care Condition: Stable Prescriptions: No Action aripiprazole [Abilify] 10 mg tablet 10 mg PO DAILY RF: 0 cetirizine 10 mg tablet 5 mg PO DAILY RF: 0 Dexilant 60 mg capsule,biphase delayed releas 60 mg PO DAILY RF: 0 estradiol 0.5 mg tablet 0.5 mg PO DAILY RF: 0 fluticasone propionate [Flonase Allergy Relief] 50 mcg/actuation spray,suspension 1 spray INTRANASAL DAILY RF: 0 gabapentin 100 mg capsule 100 mg PO DAILY RF: 0 lisinopril 2.5 mg tablet 2.5 mg PO DAILY RF: 0 rivastigmine 4.6 mg/24 hr patch 24 hour 4.6 mg TRANSDERMA DAILY RF: 0 doxepin [Silenor] 3 mg tablet 3 mg PO DAILY RF: 0 simvastatin 40 mg tablet 40 mg PO DAILY RF: 0 fluticasone propion-salmeterol [Advair Diskus] 100-50 mcg/dose blister with device 1 inh INHALATION Q12H 30 Days Qty: 60 RF: 4 venlafaxine 150 mg Capsule,Extended Release 24hr 150 mg PO DAILY RF: 0 Discharge Orders: Transfer Out of Facility (Order); Ordered 11/01/19 Ordered By: Erick Wallace Patient Instructions: Transesophageal Echocardiogram (DC) Transfer Attestations Time Spent in Transfer Care*: greater than 30 min Quality Metrics Clinical Quality Measures: During this hospital stay, did patient experience: None Coding Level of Care Code Acute Community Health Coordinator for Pastor Fwcindy Diagnoses Status post aortic valve replacement with bioprosthetic valve Z95.3 Constipation K59.00 Postoperative atrial fibrillation I97.89; I48.91 S/P AVR (aortic valve replacement) Z95.2 HTN (hypertension) I10 Hypertension type: essential hypertension
--- NOTE | 2019-11-01 16:21 | PC.NURSE ---
TRANSFER OUT OF FACILITY Report called to [facility] in [place] and given to Lili Segovia RN. Nurse verbalized they did not need anymore information on patient and needed nothing faxed.
[2019-11-01] MEDS: apixaban 5 mg Tablet PO (17:08)
[2019-11-01 17:33] LABS: Glucose Point of Care 133 mg/dL (70-110)
--- NOTE | 2019-11-01 18:27 | PC.NURSE ---
TRANSFER TO [facility] Report called to [facility]. Patient escorted via EMS. All belongings sent with patient. [facility] notified of departure.
== END 2019-11-01 18:32 | DRG 219 ==
LOC: OR 06:18 → ICU 13:42
PROVIDERS: Family Medicine; Internal Medicine; Internal Medicine Critical Care Medicine; Student in an Organized Health Care Education/Training Program; Admitting Provider Thoracic Surgery (Cardiothoracic Vascular Surgery); PCP Family Medicine; Visit Provider Thoracic Surgery (Cardiothoracic Vascular Surgery)
DX: I35.0 Nonrheumatic aortic (valve) stenosis (principal); I63.512 Cerebral infarction due to unspecified occlusion or stenosis of left middle cerebral artery; J69.0 Pneumonitis due to inhalation of food and vomit; I97.190 Other postprocedural cardiac functional disturbances following cardiac surgery; J98.11 Atelectasis; G81.90 Hemiplegia, unspecified affecting unspecified side; J90 Pleural effusion, not elsewhere classified; J95.851 Ventilator associated pneumonia; N17.9 Acute kidney failure, unspecified; I48.91 Unspecified atrial fibrillation; Y65.8 Other specified misadventures during surgical and medical care; Y71.3 Surgical instruments, materials and cardiovascular devices (including sutures) associated with adverse incidents; K59.00 Constipation, unspecified; D69.6 Thrombocytopenia, unspecified; F31.9 Bipolar disorder, unspecified; I12.9 Hypertensive chronic kidney disease with stage 1 through stage 4 chronic kidney disease, or unspecified chronic kidney disease; N18.9 Chronic kidney disease, unspecified; G25.81 Restless legs syndrome; Z87.891 Personal history of nicotine dependence
CPT/HCPCS: 12345; 36415; 36416; 36430; 36569; 36592; 36600; 70450; 70496; 70498; 71045; 74018; 76705; 80048; 80051; 80053; 80074; 80076; 80202; 81001; 81003; 82140; 82803; 82810; 82962; 83735; 83880; 83986; 84100; 84439; 84443; 85007; 85025; 85347; 85362; 85378; 85384; 85610; 85730; 86850; 86900; 86920; 87040; 87070; 87077; 87186; 87205; 87641; 88305; 92507; 92523; 92526; 92610; 93005; 93308; 93312; 93320; 93325; 94002; 94003; 94660; 94799; 96372; 96375; 97110; 97163; 97167; 97530; 97535; A4570; C9113; J0282; J0330; J0360; J0692; J0697; J1120; J1250; J1644; J1650; J1815; J1940; J1953; J1956; J2001; J2020; J2150; J2250; J2270; J2370; J2543; J2704; J2720; J3010; J3370; J3475; J3480; J3490; J7030; J7050; J7060; P9016; P9041; P9047; Q9967

== ENCOUNTER 2019-12-13 14:44 | Inpatient (IN) | payer MEDICARE, OTHER, MEDICAID, SELFPAY ==
[2019-12-13] VITALS (8 sets, daily range): BP systolic 104–172; BP diastolic 56–69; PULSE 68–116; RESP 18–20; TEMP 36.7–36.8; O2SAT 96–100; BMI 26.5
--- NOTE | 2019-12-13 15:10 | ED_ITS ---
Documented by User: CORBY Castro 12/14/19 06:59 HPI - Dizziness General: Chief Complaint: Dizziness Stated Complaint: FALL Time Seen by Provider: 12/13/19 14:46 Source: patient and family (contacted two of patient's daughters ) Mode of arrival: EMS Limitations: no limitations History of Present Illness: HPI Narrative: Patient is a 74-year-old female who presents to ED today via EMS for complaints of a fall that occurred in her home. Patient tells me she fell twice today both caused by dizziness. Patient tells me she has been dizzy over the past 2 months. She states anytime she gets up and ambulates she becomes extremely dizzy and unsteady on her feet. Patient tells me she was discharged from [facility] in [place] yesterday. Upon looking at patient's records she was admitted to the hospital towards the end of September and had an aortic valve replaced by Dr. Luciano on 10/17. Patient had an extremely complicated hospital stay. Following the surgery patient developed acute kidney injury, pulmonary edema (was extremely hard to get off ventilator and when she was extubated she quickly had to be reintubated), she developed A. 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 Patient was subsequently transferred to [place] for long-term care/inpatient rehabilitation. From there she was sent to [facility] in [place] where she was released yesterday. Patient, as well as her 2 daughters, that were contacted via phone tell me that she has had 2 falls in the one day that she has been home-both caused by dizziness. Patient tells me she fell and struck her forehead on the carpet. No LOC. Patient's PMH is significant for her previous CVA, bipolar, HTN, hyperlipidemia, IBS, RLS, sleep apnea, COPD. MD elicited complaint: dizziness Associated symptoms: Denies chest pain, chills, headache(s), malaise, nausea, palpitations, syncope or vomiting Associated neuro symptoms: Deny confusion or numbness in extremities Review of Systems Const: Denies: fever(s), chills, body aches, fatigue or malaise Eyes: Denies: change in vision Card: Denies: chest pain, palpitations, irregular heart rhythm, edema, swelling of feet/ankles, syncope, pre-syncope or leg pain with exertion Resp: Denies: dyspnea or chest congestion GI: Reports: abdominal pain; Denies: nausea, vomiting or diarrhea : Denies: flank pain, difficulty voiding, dysuria, urinary frequency or urinary urgency Musc: Denies: neck pain, back pain, extremity pain, extremity swelling, joint pain or joint swelling Skin/Breast: Denies: rash Neuro: Reports: frequent falls and dizziness; Denies: headache(s), numbness in extremities, weakness in extremities, sensory changes, confusion or Slurred speech present [facility] ED PFSH: Medical History (Updated 12/13/19 @ 23:18 by Brent Rojas MD) Aortic stenosis, severe Arthropathy, unspecified Backache Bipolar affective disorder Chronic obstructive pulmonary disease, unspecified DNR (do not resuscitate) HTN (hypertension) Hypercholesterolemia Irritable bowel syndrome Labyrinthitis Peripheral vertigo RLS (restless legs syndrome) Sleep apnea Surgical History H/O eye surgery H/O foot surgery H/O oral surgery History of abdominal hysterectomy History of appendectomy Hx of cholecystectomy Status post aortic valve replacement with bioprosthetic valve Performed 10/17/[address] Luciano Family History Other Hypertension Social History Smoking and tobacco status: former smoker Quit status (tobacco): has quit using tobacco Year quit tobacco: 1979 - ciggs x 6 Years Alcohol intake: never Lives independently: Yes Household members: none Marital status: / Current occupational status: retired and disabled Pets and animals: Yes Pets & animals: dog(s) History of recent travel: No Current gender identity: Female Physical Exam Const: COMMON NORMALS: no acute distress, patient oriented x3, healthy appearing, alert and well nourished GENERAL APPEARANCE: cooperative ORIENTATION/CONSCIOUSNESS: Yes oriented to person, Yes oriented to place and Yes oriented to time HENMT: COMMON NORMALS: normocephalic and Normal external nose present HEAD & SCALP: normocephalic and other (abrasions to forehead) FACE & SINUS: normal facial exam and sinuses nontender NOSE: Normal external nose present OTHER: frequent tongue movements-pt is on anti-psychotics for her bipolar; possible TD movements related to this Eye: COMMON NORMALS: Equal, round and reactive pupils present, EOMs intact bilaterally, conjunctivae normal and no scleral icterus GENERAL EYE: appearance normal, both eyes and all related structures CONJUNCTIVA: Yes conjunctivae normal PUPIL: Yes Equal, round and reactive pupils present Neck/C-Spine: CERVICAL SPINE: No Cervical spine tenderness and No step off deformity Chest: COMMONS NORMALS: normal inspection of the chest and normal palpation of entire chest wall Resp: COMMON NORMALS: normal respiratory effort and clear to auscultation bilaterally AUSCULTATION: clear to auscultation bilaterally Cardio: COMMON NORMALS: regular rate and regular rhythm RATE: regular rate RHYTHM: regular rhythm GI: COMMON NORMALS: Normal to inspection, nondistended, normoactive bowel sounds present, Soft to palpation, No hepatosplenomegaly present and no masses PALPATION: Yes Soft to palpation, Yes Tenderness to palpation present (GI) (pt is reporting diffuse abdominal pain) and Yes No hepatosplenomegaly present Extremity: COMMON NORMALS: capillary refill normal, no clubbing, cyanosis or edema, no calf tenderness and no pedal edema GENERAL: Yes normal exam except as noted OTHER: frequent movement of bilateral LEs-history of RLS Neuro: NANCY COMA SCALE: document GCS findings Nancy coma scale eye opening: Spontaneous Nancy coma scale verbal response: Orientated [place] coma scale motor response: Obey commands [place] coma scale total score: 15 COMMON NORMALS: patient oriented x3, CN's II-XII intact bilaterally, moves all extremities, no focal motor deficits and no sensory deficits noted SENSORIUM/ORIENTATION: Yes alert, Yes oriented to person, Yes oriented to place and Yes oriented to time GAIT: Yes Unable to assess gait Skin: COMMON NORMALS: no rashes or lesions noted GENERAL SKIN EXAM: no rashes or lesions noted Course ED course: patient was getting up to use restroom (RN was also performing orthostatics simultaneously) and states pts BP dropped to 80s/40s when she stood up; she got extremely dizzy and almost fell Vital Signs: Vital signs: Vital Signs Temperature 98.5 F 12/14/19 04:00 Pulse Rate 106 H 12/14/19 04:00 Respiratory Rate 18 12/14/19 04:00 Blood Pressure 144/67 12/14/19 04:00 Pulse Oximetry 96 12/14/19 04:00 MDM - Dizziness MDM Narrative: Medical decision making narrative: Patient is a 74-year-old female here for a main complaint of dizziness. She was [facility] [place] [facility]. She is her own guardian and lives alone. She has fallen twice in the one day she has been at home. She has profound orthostatic hypotension here. At this time patient is a significant fall risk if we were to send home. She most likely will require admission at this time. I have spoken to Dr. Reid who will assume care of patient. Lab Data: Labs: Lab Results 12/13/19 12/13/19 12/13/19 Range/Units 15:48 15:48 15:48 WBC 12.1 H (4.0-10.0) 10^3/ uL RBC 3.67 L (4.1-5.3) 10^6/u L Hgb 11.1 L (11.5-15.3) g/dL Hct 35.4 L (37.0-47.0) % MCV 96.5 (81-99) fL MCH 30.2 (28.0-34.0) pg MCHC 31.4 (30.0-36.0) g/dL RDW 13.3 (12.1-15.1) % Plt Count 234 (130-400) 10^3/c mm MPV 11.1 H (7.4-10.4) fL Neut % (Auto) 67.0 % Lymph % (Auto) 21.5 % [place] % (Auto) 10.4 % Eos % (Auto) 0.4 % Baso % (Auto) 0.4 % Neut # (Auto) 8.08 H (1.8-7.7) 10^3/u L Lymph # (Auto) 2.6 (0.8-4.8) 10^3/u L [place] # (Auto) 1.3 H (0.2-0.9) 10^3/u L Eos # (Auto) 0.1 (0.0-0.8) 10^3/u L Baso # (Auto) 0.1 (0.0-0.1) 10^3/u L Nucleated RBC % (a uto) 0 % Nucleated RBCs # 0.0 /100WBC PT (12.1-14.9) SECO NDS INR (0.8-1.2) APTT (23.9-36.7) SECO NDS Sodium 137 (136-145) mmol/L Potassium 4.2 (3.5-5.1) mmol/L Chloride 99 (98-107) mmol/L Carbon Dioxide 22 (22-29) mmol/L Anion Gap 20.2 H (5-19) BUN 33 H (8-23) mg/dL Creatinine 1.6 H (0.5-0.9) mg/dL GFR Calculation Not Reportable Glucose 161 H (65-115) mg/dL Calculated Osmolal ity 285 (285-295) mOsm/k g Lactic Acid 3.5 H (0.5-2.2) mmol/L Calcium 9.2 (8.5-10.5) mg/dL Magnesium 2.3 (1.7-2.3) mg/dL Total Bilirubin 0.3 (0.15-1.2) mg/dL AST 28 (0-32) U/L ALT 20 (0-33) U/L Alkaline Phosphata se 117 H (35-105) IU/L Troponin T Baselin e (0-10) ng/L Troponin T 120 Min saxman (0-10) ng/L Delta Troponin T (0-10) ABS# Total Protein 7.3 (6.6-8.7) g/dL Albumin 3.8 (3.5-5.2) g/dL Globulin 3.5 (1.3-4.6) g/dL Lipase 26 (13-60) U/L Urine Color (Yellow) Urine Appearance (CLEAR) Urine pH (5-7) Ur Specific Gravit y (1.005-1.030) Urine Protein (Negative) Urine Glucose (UA) (Normal) Urine Ketones (Negative) Urine Blood (Negative) Urine Nitrate (Negative) Urine Bilirubin (NEGATIVE) Urine Urobilinogen (Negative) mg/dL Ur Leukocyte Chaya ase (Negative) Urine RBC (0-2) /hpf Urine WBC (0-5) /hpf Ur Squamous Epith Cells (0-5) Amorphous Sediment Urine Bacteria (NONE) Hyaline Casts Urine Mucus Urine Opiates Scre en (Negative) ng/mL Ur Barbiturates Sc reen (Negative) ng/mL Ur Phencyclidine S crn (Negative) ng/mL Ur Amphetamines Sc reen (Negative) ng/mL U Benzodiazepines Scrn (Negative) ng/mL Urine Cocaine Scre en (Negative) ng/mL U Marijuana (THC) Screen (Negative) ng/mL 12/13/19 12/13/19 12/13/19 Range/Units 15:48 15:48 16:25 WBC (4.0-10.0) 10^3/ uL RBC (4.1-5.3) 10^6/u L Hgb (11.5-15.3) g/dL Hct (37.0-47.0) % MCV (81-99) fL MCH (28.0-34.0) pg MCHC (30.0-36.0) g/dL RDW (12.1-15.1) % Plt Count (130-400) 10^3/c mm MPV (7.4-10.4) fL Neut % (Auto) % Lymph % (Auto) % [place] % (Auto) % Eos % (Auto) % Baso % (Auto) % Neut # (Auto) (1.8-7.7) 10^3/u L Lymph # (Auto) (0.8-4.8) 10^3/u L [place] # (Auto) (0.2-0.9) 10^3/u L Eos # (Auto) (0.0-0.8) 10^3/u L Baso # (Auto) (0.0-0.1) 10^3/u L Nucleated RBC % (a uto) % Nucleated RBCs # /100WBC PT 17.20 H (12.1-14.9) SECO NDS INR 1.36 H (0.8-1.2) APTT 28.6 (23.9-36.7) SECO NDS Sodium (136-145) mmol/L Potassium (3.5-5.1) mmol/L Chloride (98-107) mmol/L Carbon Dioxide (22-29) mmol/L Anion Gap (5-19) BUN (8-23) mg/dL Creatinine (0.5-0.9) mg/dL GFR Calculation Glucose (65-115) mg/dL Calculated Osmolal ity (285-295) mOsm/k g Lactic Acid (0.5-2.2) mmol/L Calcium (8.5-10.5) mg/dL Magnesium (1.7-2.3) mg/dL Total Bilirubin (0.15-1.2) mg/dL AST (0-32) U/L ALT (0-33) U/L Alkaline Phosphata se (35-105) IU/L Troponin T Baselin e 31 H (0-10) ng/L Troponin T 120 Min saxman (0-10) ng/L Delta Troponin T (0-10) ABS# Total Protein (6.6-8.7) g/dL Albumin (3.5-5.2) g/dL Globulin (1.3-4.6) g/dL Lipase (13-60) U/L Urine Color Yellow (Yellow) Urine Appearance Hazy A (CLEAR) Urine pH 5 (5-7) Ur Specific Gravit y 1.020 (1.005-1.030) Urine Protein Neg (Negative) Urine Glucose (UA) Norm (Normal) Urine Ketones Negative (Negative) Urine Blood Neg (Negative) Urine Nitrate Negative (Negative) Urine Bilirubin Neg (NEGATIVE) Urine Urobilinogen Norm (Negative) mg/dL Ur Leukocyte Chaya ase Negative (Negative) Urine RBC 0-4 H (0-2) /hpf Urine WBC None (0-5) /hpf Ur Squamous Epith Cells 0-4 H (0-5) Amorphous Sediment 1+ Urine Bacteria Trace (NONE) Hyaline Casts 15-25 H Urine Mucus Trace Urine Opiates Scre en (Negative) ng/mL Ur Barbiturates Sc reen (Negative) ng/mL Ur Phencyclidine S crn (Negative) ng/mL Ur Amphetamines Sc reen (Negative) ng/mL U Benzodiazepines Scrn (Negative) ng/mL Urine Cocaine Scre en (Negative) ng/mL U Marijuana (THC) Screen (Negative) ng/mL 12/13/19 12/13/19 Range/Units 16:25 17:44 WBC (4.0-10.0) 10^3/ uL RBC (4.1-5.3) 10^6/u L Hgb (11.5-15.3) g/dL Hct (37.0-47.0) % MCV (81-99) fL MCH (28.0-34.0) pg MCHC (30.0-36.0) g/dL RDW (12.1-15.1) % Plt Count (130-400) 10^3/c mm MPV (7.4-10.4) fL Neut % (Auto) % Lymph % (Auto) % [place] % (Auto) % Eos % (Auto) % Baso % (Auto) % Neut # (Auto) (1.8-7.7) 10^3/u L Lymph # (Auto) (0.8-4.8) 10^3/u L [place] # (Auto) (0.2-0.9) 10^3/u L Eos # (Auto) (0.0-0.8) 10^3/u L Baso # (Auto) (0.0-0.1) 10^3/u L Nucleated RBC % (a uto) % Nucleated RBCs # /100WBC PT (12.1-14.9) SECO NDS INR (0.8-1.2) APTT (23.9-36.7) SECO NDS Sodium (136-145) mmol/L Potassium (3.5-5.1) mmol/L Chloride (98-107) mmol/L Carbon Dioxide (22-29) mmol/L Anion Gap (5-19) BUN (8-23) mg/dL Creatinine (0.5-0.9) mg/dL GFR Calculation Glucose (65-115) mg/dL Calculated Osmolal ity (285-295) mOsm/k g Lactic Acid (0.5-2.2) mmol/L Calcium (8.5-10.5) mg/dL Magnesium (1.7-2.3) mg/dL Total Bilirubin (0.15-1.2) mg/dL AST (0-32) U/L ALT (0-33) U/L Alkaline Phosphata se (35-105) IU/L Troponin T Baselin e (0-10) ng/L Troponin T 120 Min saxman 30.90 H (0-10) ng/L Delta Troponin T -0.10 L (0-10) ABS# Total Protein (6.6-8.7) g/dL Albumin (3.5-5.2) g/dL Globulin (1.3-4.6) g/dL Lipase (13-60) U/L Urine Color (Yellow) Urine Appearance (CLEAR) Urine pH (5-7) Ur Specific Gravit y (1.005-1.030) Urine Protein (Negative) Urine Glucose (UA) (Normal) Urine Ketones (Negative) Urine Blood (Negative) Urine Nitrate (Negative) Urine Bilirubin (NEGATIVE) Urine Urobilinogen (Negative) mg/dL Ur Leukocyte Chaya ase (Negative) Urine RBC (0-2) /hpf Urine WBC (0-5) /hpf Ur Squamous Epith Cells (0-5) Amorphous Sediment Urine Bacteria (NONE) Hyaline Casts Urine Mucus Urine Opiates Scre en Negative (Negative) ng/mL Ur Barbiturates Sc reen Negative (Negative) ng/mL Ur Phencyclidine S crn Positive H (Negative) ng/mL Ur Amphetamines Sc reen Negative (Negative) ng/mL U Benzodiazepines Scrn Negative (Negative) ng/mL Urine Cocaine Scre en Negative (Negative) ng/mL U Marijuana (THC) Screen Negative (Negative) ng/mL Imaging Data^: CXR: Radiologist's impression: [address] [place] [address] XRay Report Signed Patient: Nancy Brasher Unit #: [id number] : [id number] Age/Sex: 74 / F ADM Date: 12/13/19 Loc: ER Room/Bed: Attending Dr: Ordering Provider/Ordering MD: Wendie Baldwin Date of Service: 12/13/19 Procedure(s): XR chest 1V portable 16365 Accession Number(s): [id number] Report Number: [id number] WS: [id number] EXAM: AP CHEST: PORTABLE UPRIGHT DATE OF EXAM: 12/13/2019, 1543 hours COMPARISON: Chest x-rays from 10/31/2019 and 10/25/2019 HISTORY: Patient is 74 years old with dizziness. Recent surgery.. FINDINGS: The cardiac silhouette is normal in size. 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 Supporting devices have been remov ed. The pulmonary vascularity is normal. Chronic lung changes are demonstrated. Lungs are clear. There is no effusion or pneumothorax. No acute bony abnormality is seen. Interval resolution of bilateral infiltrates and effusions has occurred. XR/XR chest 1V portable [id number] IMPRESSION: No acute pulmonary disease. Dictated By: Elmer Clark MD Signed By: Elmer Clark MD Signed Date/Time: 12/13/19 1605 DD/ 1601 Discharge Plan Discharge Patient Disposition: Placed in Observation Admit Provider: Trey Willams Clinical Impression: Moderate dehydration, Orthostatic hypotension Condition: Stable Referrals: Mandeep Madrigal MD [Primary Care Provider] - Discharge Date/Time: 12/13/19 18:55 Sign Out Sign Out Data: Patient Sign Out occurred on 12/13/19 at 17:00. Patient's care was discussed, and care was transferred from to Kristen Reid. Coding Level of Care Code ED Cone Operator for Chg Fwd Exam Comprehensive Documented by User: Kristen Reid 12/13/19 20:12 HPI - Dizziness General: Chief Complaint: Dizziness Stated Complaint: FALL Time Seen by Provider: 12/13/19 14:46 [facility] ED PFSH: Medical History (Updated 12/13/19 @ 23:18 by Brent Rojas MD) Aortic stenosis, severe Arthropathy, unspecified Backache Bipolar affective disorder Chronic obstructive pulmonary disease, unspecified DNR (do not resuscitate) HTN (hypertension) Hypercholesterolemia Irritable bowel syndrome Labyrinthitis Peripheral vertigo RLS (restless legs syndrome) Sleep apnea Surgical History H/O eye surgery H/O foot surgery H/O oral surgery History of abdominal hysterectomy History of appendectomy Hx of cholecystectomy Status post aortic valve replacement with bioprosthetic valve Performed 10/17/[address] Luciano Family History Other Hypertension Social History Smoking and tobacco status: former smoker Quit status (tobacco): has quit using tobacco Year quit tobacco: 1979 - ciggs x 6 Years Alcohol intake: never Lives independently: Yes Household members: none Marital status: / Current occupational status: retired and disabled Pets and animals: Yes Pets & animals: dog(s) History of recent travel: No Current gender identity: Female Course Vital Signs: Vital signs: Vital Signs Temperature 98.5 F 12/14/19 04:00 Pulse Rate 106 H 12/14/19 04:00 Respiratory Rate 18 12/14/19 04:00 Blood Pressure 144/67 12/14/19 04:00 Pulse Oximetry 96 12/14/19 04:00 MDM - Dizziness MDM Narrative: Medical decision making narrative: 1812 -the case was reviewed with Dr. Willams, he agrees to admit the patient. He will met for dehydration and orthostasis. Lab Data: Attestation: I reviewed the patient's lab results. Labs: Lab Results 12/13/19 12/13/19 12/13/19 Range/Units 15:48 15:48 15:48 WBC 12.1 H (4.0-10.0) 10^3/ uL RBC 3.67 L (4.1-5.3) 10^6/u L Hgb 11.1 L (11.5-15.3) g/dL Hct 35.4 L (37.0-47.0) % MCV 96.5 (81-99) fL MCH 30.2 (28.0-34.0) pg MCHC 31.4 (30.0-36.0) g/dL RDW 13.3 (12.1-15.1) % Plt Count 234 (130-400) 10^3/c mm MPV 11.1 H (7.4-10.4) fL Neut % (Auto) 67.0 % Lymph % (Auto) 21.5 % [place] % (Auto) 10.4 % Eos % (Auto) 0.4 % Baso % (Auto) 0.4 % Neut # (Auto) 8.08 H (1.8-7.7) 10^3/u L Lymph # (Auto) 2.6 (0.8-4.8) 10^3/u L [place] # (Auto) 1.3 H (0.2-0.9) 10^3/u L Eos # (Auto) 0.1 (0.0-0.8) 10^3/u L Baso # (Auto) 0.1 (0.0-0.1) 10^3/u L Nucleated RBC % (a uto) 0 % Nucleated RBCs # 0.0 /100WBC PT (12.1-14.9) SECO NDS INR (0.8-1.2) APTT (23.9-36.7) SECO NDS Sodium 137 (136-145) mmol/L Potassium 4.2 (3.5-5.1) mmol/L Chloride 99 (98-107) mmol/L Carbon Dioxide 22 (22-29) mmol/L Anion Gap 20.2 H (5-19) BUN 33 H (8-23) mg/dL Creatinine 1.6 H (0.5-0.9) mg/dL GFR Calculation Not Reportable Glucose 161 H (65-115) mg/dL Calculated Osmolal ity 285 (285-295) mOsm/k g Lactic Acid 3.5 H (0.5-2.2) mmol/L Calcium 9.2 (8.5-10.5) mg/dL Magnesium 2.3 (1.7-2.3) mg/dL Total Bilirubin 0.3 (0.15-1.2) mg/dL AST 28 (0-32) U/L ALT 20 (0-33) U/L Alkaline Phosphata se 117 H (35-105) IU/L Troponin T Baselin e (0-10) ng/L Troponin T 120 Min saxman (0-10) ng/L Delta Troponin T (0-10) ABS# Total Protein 7.3 (6.6-8.7) g/dL Albumin 3.8 (3.5-5.2) g/dL Globulin 3.5 (1.3-4.6) g/dL Lipase 26 (13-60) U/L Urine Color (Yellow) Urine Appearance (CLEAR) Urine pH (5-7) Ur Specific Gravit y (1.005-1.030) Urine Protein (Negative) Urine Glucose (UA) (Normal) Urine Ketones (Negative) Urine Blood (Negative) Urine Nitrate (Negative) Urine Bilirubin (NEGATIVE) Urine Urobilinogen (Negative) mg/dL Ur Leukocyte Chaya ase (Negative) Urine RBC (0-2) /hpf Urine WBC (0-5) /hpf Ur Squamous Epith Cells (0-5) Amorphous Sediment Urine Bacteria (NONE) Hyaline Casts Urine Mucus Urine Opiates Scre en (Negative) ng/mL Ur Barbiturates Sc reen (Negative) ng/mL Ur Phencyclidine S crn (Negative) ng/mL Ur Amphetamines Sc reen (Negative) ng/mL U Benzodiazepines Scrn (Negative) ng/mL Urine Cocaine Scre en (Negative) ng/mL U Marijuana (THC) Screen (Negative) ng/mL 12/13/19 12/13/19 12/13/19 Range/Units 15:48 15:48 16:25 WBC (4.0-10.0) 10^3/ uL RBC (4.1-5.3) 10^6/u L Hgb (11.5-15.3) g/dL Hct (37.0-47.0) % MCV (81-99) fL MCH (28.0-34.0) pg MCHC (30.0-36.0) g/dL RDW (12.1-15.1) % Plt Count (130-400) 10^3/c mm MPV (7.4-10.4) fL Neut % (Auto) % Lymph % (Auto) % [place] % (Auto) % Eos % (Auto) % Baso % (Auto) % Neut # (Auto) (1.8-7.7) 10^3/u L Lymph # (Auto) (0.8-4.8) 10^3/u L [place] # (Auto) (0.2-0.9) 10^3/u L Eos # (Auto) (0.0-0.8) 10^3/u L Baso # (Auto) (0.0-0.1) 10^3/u L Nucleated RBC % (a uto) % Nucleated RBCs # /100WBC PT 17.20 H (12.1-14.9) SECO NDS INR 1.36 H (0.8-1.2) APTT 28.6 (23.9-36.7) SECO NDS Sodium (136-145) mmol/L Potassium (3.5-5.1) mmol/L Chloride (98-107) mmol/L Carbon Dioxide (22-29) mmol/L Anion Gap (5-19) BUN (8-23) mg/dL Creatinine (0.5-0.9) mg/dL GFR Calculation Glucose (65-115) mg/dL Calculated Osmolal ity (285-295) mOsm/k g Lactic Acid (0.5-2.2) mmol/L Calcium (8.5-10.5) mg/dL Magnesium (1.7-2.3) mg/dL Total Bilirubin (0.15-1.2) mg/dL AST (0-32) U/L ALT (0-33) U/L Alkaline Phosphata se (35-105) IU/L Troponin T Baselin e 31 H (0-10) ng/L Troponin T 120 Min saxman (0-10) ng/L Delta Troponin T (0-10) ABS# Total Protein (6.6-8.7) g/dL Albumin (3.5-5.2) g/dL Globulin (1.3-4.6) g/dL Lipase (13-60) U/L Urine Color Yellow (Yellow) Urine Appearance Hazy A (CLEAR) Urine pH 5 (5-7) Ur Specific Gravit y 1.020 (1.005-1.030) Urine Protein Neg (Negative) Urine Glucose (UA) Norm (Normal) Urine Ketones Negative (Negative) Urine Blood Neg (Negative) Urine Nitrate Negative (Negative) Urine Bilirubin Neg (NEGATIVE) Urine Urobilinogen Norm (Negative) mg/dL Ur Leukocyte Chaya ase Negative (Negative) Urine RBC 0-4 H (0-2) /hpf Urine WBC None (0-5) /hpf Ur Squamous Epith Cells 0-4 H (0-5) Amorphous Sediment 1+ Urine Bacteria Trace (NONE) Hyaline Casts 15-25 H Urine Mucus Trace Urine Opiates Scre en (Negative) ng/mL Ur Barbiturates Sc reen (Negative) ng/mL Ur Phencyclidine S crn (Negative) ng/mL Ur Amphetamines Sc reen (Negative) ng/mL U Benzodiazepines Scrn (Negative) ng/mL Urine Cocaine Scre en (Negative) ng/mL U Marijuana (THC) Screen (Negative) ng/mL 12/13/19 12/13/19 Range/Units 16:25 17:44 WBC (4.0-10.0) 10^3/ uL RBC (4.1-5.3) 10^6/u L Hgb (11.5-15.3) g/dL Hct (37.0-47.0) % MCV (81-99) fL MCH (28.0-34.0) pg MCHC (30.0-36.0) g/dL RDW (12.1-15.1) % Plt Count (130-400) 10^3/c mm MPV (7.4-10.4) fL Neut % (Auto) % Lymph % (Auto) % [place] % (Auto) % Eos % (Auto) % Baso % (Auto) % Neut # (Auto) (1.8-7.7) 10^3/u L Lymph # (Auto) (0.8-4.8) 10^3/u L [place] # (Auto) (0.2-0.9) 10^3/u L Eos # (Auto) (0.0-0.8) 10^3/u L Baso # (Auto) (0.0-0.1) 10^3/u L Nucleated RBC % (a uto) % Nucleated RBCs # /100WBC PT (12.1-14.9) SECO NDS INR (0.8-1.2) APTT (23.9-36.7) SECO NDS Sodium (136-145) mmol/L Potassium (3.5-5.1) mmol/L Chloride (98-107) mmol/L Carbon Dioxide (22-29) mmol/L Anion Gap (5-19) BUN (8-23) mg/dL Creatinine (0.5-0.9) mg/dL GFR Calculation Glucose (65-115) mg/dL Calculated Osmolal ity (285-295) mOsm/k g Lactic Acid (0.5-2.2) mmol/L Calcium (8.5-10.5) mg/dL Magnesium (1.7-2.3) mg/dL Total Bilirubin (0.15-1.2) mg/dL AST (0-32) U/L ALT (0-33) U/L Alkaline Phosphata se (35-105) IU/L Troponin T Baselin e (0-10) ng/L Troponin T 120 Min saxman 30.90 H (0-10) ng/L Delta Troponin T -0.10 L (0-10) ABS# Total Protein (6.6-8.7) g/dL Albumin (3.5-5.2) g/dL Globulin (1.3-4.6) g/dL Lipase (13-60) U/L Urine Color (Yellow) Urine Appearance (CLEAR) Urine pH (5-7) Ur Specific Gravit y (1.005-1.030) Urine Protein (Negative) Urine Glucose (UA) (Normal) Urine Ketones (Negative) Urine Blood (Negative) Urine Nitrate (Negative) Urine Bilirubin (NEGATIVE) Urine Urobilinogen (Negative) mg/dL Ur Leukocyte Chaya ase (Negative) Urine RBC (0-2) /hpf Urine WBC (0-5) /hpf Ur Squamous Epith Cells (0-5) Amorphous Sediment Urine Bacteria (NONE) Hyaline Casts Urine Mucus Urine Opiates Scre en Negative (Negative) ng/mL Ur Barbiturates Sc reen Negative (Negative) ng/mL Ur Phencyclidine S crn Positive H (Negative) ng/mL Ur Amphetamines Sc reen Negative (Negative) ng/mL U Benzodiazepines Scrn Negative (Negative) ng/mL Urine Cocaine Scre en Negative (Negative) ng/mL U Marijuana (THC) Screen Negative (Negative) ng/mL Imaging Data^: CT Head: Radiologist's impression: [address] [place] [address] CT Scan Report Signed Patient: Nancy Brasher Unit #: [id number] : 1945 Acct#:[id number] Age/Sex: 74 / F ADM Date: 12/13/19 Loc: ER Room/Bed: Attending Dr: Ordering Provider/Ordering MD: Wendie Baldwin Date of Service: 12/13/19 Procedure(s): CT head wo con* [id number] Accession Number(s): [id number] Report Number: [id number] WS: [id number] EXAM: CT head wo con* [id number] DATE OF EXAMINATION: 12/13/2019, 1645 hours COMPARISON: Head CT from 10/20/2019 HISTORY: 74 years old with dizziness. Fell 2 times today. Nausea. TECHNIQUE: Thin slice imaging obtained through the brain. Viewed in brain, subdural and bone window with reconstructions. DLP: 1272.[address] scans at [facility] use at least one of these dose optimization techniques: automated exposure control; mA and/or kV adjustment per patient size (includes targeted exams where dose is matched to clinical indication); or iterative reconstruction. FINDINGS: Examination is compromised by motion artifact. Generalized changes of atrophy are demonstrated. Blanco-white differentiation is normal. There are slight changes of decreased attenuation within the white matter felt to represent sequelae from chronic small vessel white matter microangiopathic change. No findings of hemorrhage, hydrocephalus, mass, mass effect or abnormal extra-axial fluid collection is seen. No acute skull abnormality is demonstrated. Extracalvarial soft tissues are unremarkable. The paranasal sinuses are well pneumatized as visualized. CT/CT head wo con* [id number] IMPRESSION: Within the limits of the examination findings of and slight chronic white matter changes are noted. No acute intracranial process. Examination limited secondary to motion artifact. Dictated By: Elmer Clark MD Signed By: Elmer Clark MD Signed Date/Time: 12/13/191718 DD/ 15 CT Cervical Spine: Radiologist's impression: [address] [address] [address] Scan Report Signed Patient: Nancy Brasher Unit #: [id number] : 1945 Age/Sex: 74 / F ADM Date: 12/13/19 Loc: ER Room/Bed: Attending Dr: Ordering Provider/Ordering MD: Wendie Baldwin Date of Service: 12/13/19 Procedure(s): CT cervical spin wo con* [id number] Accession Number(s): [id number] Report Number: [id number] WS: [id number] EXAM: CT cervical spin wo con* [id number] DATE OF EXAMINATION: 12/13/2019, 1649 hours COMPARISON: None. HISTORY: 74 years old with neck pain status post fall. Dizziness. TECHNIQUE: Transaxial computed tomography was obtained through the cervical spine and viewed in multiple windows with reconstructions. DLP: 887.[address] scans at [facility] use at least one of these dose optimi zation techniques: automated exposure control; mA and/or kV adjustment per patient size (includes targeted exams where dose is matched to clinical indication); or iterative reconstruction. FINDINGS: Examination is compromised by motion artifact. Skull base appears intact. Mastoid air cells are pneumatized and well aerated. Predens space and prevertebral soft tissue plane are normal. Scattered changes of arthritis are demonstrated throughout the cervical and upper thoracic spine. Fusion across the left C2-3 facet joint. Severe facet arthropathy changes C3-4, C4-5, C5-6, C6-7 and C7-T1 levels mainly on the left. Degenerative spondylosis changes C4-5 and C5-6 levels. No fracture or subluxation is seen. Lung apices are clear. Postop sternotomy changes from presumed prior coronary artery bypass noted. Thyroid gland is small in size with multiple small cysts. No findings of hematoma within the neck demonstrated. CT/CT cervical spin wo con* [id number] IMPRESSION: Changes of arthritis as described. No fracture or subluxation malalignment noted. Dictated By: Elmer Clark MD Signed By: Elmer Clark MD Signed Date/Time: 12/13/19 1722 DD/ 1719 CT Abd/Pel: Radiologist's impression: [address] [place] [address] CT Scan Report Signed Patient: Nancy Brasher [place] Unit #: [id number] : 1945 Age/Sex: 74 / F ADM Date: Loc: ER Room/Bed: Attending Dr: Ordering Provider/Ordering MD: Wendie Baldwin Date of Service: 12/13/19 Procedure(s): CT abdomen pelvis wo con [id number] Accession Number(s): [id number] Report Number: [id number] WS: [id number] EXAM: CT OF THE ABDOMEN AND PELVIS WITHOUT CONTRAST DATE OF EXAMINATION: 12/13/2019, 1654 hours COMPARISON: Prior CT from 04/16/2016. HISTORY: 74 years old with abdominal pain, nausea. Prior appendectomy, cholecystectomy and hysterectomy. TECHNIQUE: Transaxial computed tomography images obtained through the abdomen and pelvis without utilization of contrast viewed in multiple windows with reconstructions. DLP: 1077.[address] scans at [facility] use at least one of these dose optimization techniques: automated exposure control; mA and/or kV adjustment per patient size (includes targeted exams where dose is matched to clinical indication); or iterative reconstruction. FINDINGS: Lung bases are clear other than a few calcified and noncalcified pulmonary nodules. Most likely all noncalcified granulomas. Postop sternotomy changes in the lower sternum. Heart size is normal. The aorta is normal in caliber. Without IV contrast evaluation of the lumen is considered inadequate. Liver attenuation is normal. Gallbladder is surgically absent. Slight prominence to the extra hepatic biliary system is most likely related to reservoir effect from prior cholecystectomy. No definite calcified stone within the common bile duct noted. The spleen is normal in appearance. The pancreas is normal appearance. Adrenal glands are normal appearance. Both kidneys are normal in size and attenuation. No renal or ureteral calculus. No obstructive uropathy. Stomach is decompressed otherwise unremarkable. Small bowel is normal in caliber. The colon is normal in caliber. Some scattered diverticulosis changes are demonstrated. The cecum is actually in the deep pelvis abutting the distal rectosigmoid colon. No colonic obstruction. No inflammatory process associated with colon noted. No intraperitoneal or retroperitoneal adenopathy or masses seen. Bladder is decompressed otherwise unremarkable. No groin hernia or umbilical hernia is identified. Uterus is absent. No adnexal mass. Bone density is decreased. Scattered degenerative changes are seen in the spine. Arthritis within both hips. There is a soft tissue process suggesting a contusion injury with hematoma over the right greater trochanter/lateral buttock region. Please correlate for trauma or site of injection. CT/CT abdomen pelvis wo con [id number] IMPRESSION: No findings of acute abnormality within the abdomen or pelvis. Other nonemergent findings as described in the body report. Soft tissue process suggesting a hematoma over the posterior lateral right hip and buttock region. Please correlate for occult trauma versus site of injection. Dictated By: Elmer Clark MD Signed By: Elmer Clark MD Signed Date/Time: 12/13/19 1716 DD/ 1709 Discharge Plan Discharge Patient Disposition: Placed in Observation Admit Provider: Trey Willams Clinical Impression: Moderate dehydration, Orthostatic hypotension Condition: Stable Referrals: Mandeep Madrigal MD [Primary Care Provider] - Discharge Date/Time: 12/13/19 18:55 Sign Out Sign Out Data: Patient Sign Out occurred on 12/13/19 at 17:00. Patient's care was discussed, and care was transferred from to Kristen Reid. Coding Level of Care Code ED Cone Operator for Chg Fwd Exam Comprehensive
--- NOTE | 2019-12-13 15:14 | XR_ITS ---
WS: [id number] EXAM: AP CHEST: PORTABLE UPRIGHT DATE OF EXAM: 12/13/2019, 1543 hours COMPARISON: Chest x-rays from 10/31/2019 and 10/25/2019 HISTORY: Patient is 74 years old with dizziness. Recent surgery.. FINDINGS: The cardiac silhouette is normal in size. 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 Supporting devices have been removed. The pulmonary vasculari ty is normal. Chronic lung changes are demonstrated. Lungs are clear. There is no effusion or pneum othorax. No acute bony abnormality is seen. Interval resolution of bilateral infiltrates and effusi ons has occurred. XR/XR chest 1V portable [id number] IMPRESSION: No acute pulmonary disease.
--- NOTE | 2019-12-13 15:14 | CT_ITS ---
WS: [id number] EXAM: CT OF THE ABDOMEN AND PELVIS WITHOUT CONTRAST DATE OF EXAMINATION: 12/13/2019, 1654 hours COMPARISON: Prior CT from 04/16/2016. HISTORY: 74 years old with abdominal pain, nausea. Prior appendectomy, cholecystectomy and hysterectomy. TECHNIQUE: Transaxial computed tomography images obtained through the abdomen and pelvis without utilization of contrast viewed in multiple windows with reconstructions. DLP: 1077.[address] scans at [facility] use at least one of these dose optimization techniques: automat ed exposure control; mA and/or kV adjustment per patient size (includes targeted exams where dose is matched to clinical indication); or iterative reconstruction. FINDINGS: Lung bases are clear other than a few calcified and noncalcified pulmonary nodules. Most likely all n oncalcified granulomas. Postop sternotomy changes in the lower sternum. Heart size is normal. The aor ta is normal in caliber. Without IV contrast evaluation of the lumen is considered inadequate. Liver attenuation is normal. Gallbladder is surgically absent. Slight prominence to the extra hepatic bilia ry system is most likely related to reservoir effect from prior cholecystectomy. No definite calcifie d stone within the common bile duct noted. The spleen is normal in appearance. The pancreas is normal appearance. Adrenal glands are normal appearance. Both kidneys are normal in size and attenuation. No renal or ureteral calculus. No obstructive uropat hy. Stomach is decompressed otherwise unremarkable. Small bowel is normal in caliber. The colon is normal in caliber. Some scattered diverticulosis changes are demonstrated. The cecum is actually in the windy p pelvis abutting the distal rectosigmoid colon. No colonic obstruction. No inflammatory process asso ciated with colon noted. No intraperitoneal or retroperitoneal adenopathy or masses seen. Bladder is decompressed otherwise unremarkable. No groin hernia or umbilical hernia is identified. Uterus is absent. No adnexal mass. Bone density is decreased. Scattered degenerative changes are seen in the spine. Arthritis within bot h hips. There is a soft tissue process suggesting a contusion injury with hematoma over the right gre ater trochanter/lateral buttock region. Please correlate for trauma or site of injection. CT/CT abdomen pelvis wo con [id number] IMPRESSION: No findings of acute abnormality within the abdomen or pelvis. Other nonemergen t findings as described in the body report. Soft tissue process suggesting a hematoma over the posterior lateral right hip and buttock region. Please correlate for occult trauma versus site of injection .
--- NOTE | 2019-12-13 15:14 | CT_ITS ---
WS: [id number] EXAM: CT head wo con* [id number] DATE OF EXAMINATION: 12/13/2019, 1645 hours COMPARISON: Head CT from 10/20/2019 HISTORY: 74 years old with dizziness. Fell 2 times today. Nausea. TECHNIQUE: Thin slice imaging obtained through the brain. Viewed in brain, subdural and bone window with reconst ructions. DLP: 1272.[address] scans at [facility] use at least one of these dose optimization techniques: automat ed exposure control; mA and/or kV adjustment per patient size (includes targeted exams where dose is matched to clinical indication); or iterative reconstruction. FINDINGS: Examination is compromised by motion artifact. Generalized changes of atrophy are demonstrated. Blanco- white differentiation is normal. There are slight changes of decreased attenuation within the white m atter felt to represent sequelae from chronic small vessel white matter microangiopathic change. No f indings of hemorrhage, hydrocephalus, mass, mass effect or abnormal extra-axial fluid collection is s een. No acute skull abnormality is demonstrated. Extracalvarial soft tissues are unremarkable. The p aranasal sinuses are well pneumatized as visualized. CT/CT head wo con* [id number] IMPRESSION: Within the limits of the examination findings of and slight chronic white matte r changes are noted. No acute intracranial process. Examination limited secondary to motion artifact.
--- NOTE | 2019-12-13 15:14 | CT_ITS ---
WS: [id number] EXAM: CT cervical spin wo con* [id number] DATE OF EXAMINATION: 12/13/2019, 1649 hours COMPARISON: None. HISTORY: 74 years old with neck pain status post fall. Dizziness. TECHNIQUE: Transaxial computed tomography was obtained through the cervical spine and viewed in multi ple windows with reconstructions. DLP: 887.[address] scans at [facility] use at least one of these dose optimization techniques: automat ed exposure control; mA and/or kV adjustment per patient size (includes targeted exams where dose is matched to clinical indication); or iterative reconstruction. FINDINGS: Examination is compromised by motion artifact. Skull base appears intact. Mastoid air cells are pneum atized and well aerated. Predens space and prevertebral soft tissue plane are normal. Scattered soriano es of arthritis are demonstrated throughout the cervical and upper thoracic spine. Fusion across the left C2-3 facet joint. Severe facet arthropathy changes C3-4, C4-5, C5-6, C6-7 and C7-T1 levels mainl y on the left. Degenerative spondylosis changes C4-5 and C5-6 levels. No fracture or subluxation is seen. Lung apices are clear. Postop sternotomy changes from presumed prior coronary artery bypass noted. Thyroid gland is small in size with multiple small cysts. No findings of hematoma within the n watson demonstrated. CT/CT cervical spin wo con* [id number] IMPRESSION: Changes of arthritis as described. No fracture or subluxation malalignment note d.
--- NOTE | 2019-12-13 15:20 | PC.NURSE ---
Orthostatic VS performed at this time. Laying R arm BP-133/63 HR-97 Sitting R arm BP-83/48 HR-102 Pt unable to stand for duration of standing BP. Pt assisted to BSC and a standing BP performed after using the BSC as follows Standing R arm BP 76/39 HR-112
[2019-12-13 16:02] LABS: Basophils # 0.1 10^3/uL (0.0-0.1); Basophils % 0.4 %; Eosinophils # 0.1 10^3/uL (0.0-0.8); Eosinophils % 0.4 %; Hematocrit 35.4 % (37.0-47.0); Hemoglobin 11.1 g/dL (11.5-15.3); Lymphocytes # 2.6 10^3/uL (0.8-4.8); Lymphocytes % 21.5 %; Mean Corpuscular HGB Conc 31.4 g/dL (30.0-36.0); Mean Corpuscular Hemoglobin 30.2 pg (28.0-34.0); Mean Corpuscular Volume 96.5 fL (81-99); Mean Platelet Volume 11.1 fL (7.4-10.4); Monocytes # 1.3 10^3/uL (0.2-0.9); Monocytes % 10.4 %; Neutrophils # 8.08 10^3/uL (1.8-7.7); Nucleated Red Blood Cells % 0 %; Platelet Count 234 10^3/cmm (130-400); Red Blood Count 3.67 10^6/uL (4.1-5.3); Red Cell Distribution Width 13.3 % (12.1-15.1); White Blood Count 12.1 10^3/uL (4.0-10.0)
--- NOTE | 2019-12-13 16:13 | ECG_ITS ---
[facility] Test Date: 2019-12-13 Pat Name: Nancy Brasher Department: Room: Gender: Female [employer] Senior Specialist: : 1945 Requested By: Wendie Baldwin Order Number: [id number] Jenkins MD: Caesar Robertson M.D. Measurements Intervals Muse Rate: 96 P: 65 MD: 140 QRS: 45 QRSD: 84 T: 73 QT: 365 QTc: 463 Interpretive Statements SINUS RHYTHM LEFT ATRIAL ENLARGEMENT [-0.15mV P WAVE IN V1/V2] LEFT VENTRICULAR HYPERTROPHY AND ST-T CHANGE [VOLTAGE CRITERIA PLUS ST/T ABNORMALITY] Compared to ECG 11/01/2019 01:35:01 Atrial abnormality now present Left ventricular hypertrophy now present ST (T wave) deviation now present Atrial flutter no longer present T-wave abnormality no longer present Possible ischemia no longer present Electronically Signed On 12-13-2019 17:11:25 CDT by Caesar Robertson M.D. [id number]
[2019-12-13 16:19] LABS: Lactic Sepsis W/Reflex 3.5 mmol/L (0.5-2.2)
[2019-12-13 16:20] LABS: Alanine Aminotransferase 20 U/L (0-33); Albumin Level 3.8 g/dL (3.5-5.2); Alkaline Phosphatase 117 IU/L (35-105); Anion Gap 20.2 (5-19); Aspartate Amino Transferase 28 U/L (0-32); Blood Urea Nitrogen 33 mg/dL (8-23); Calcium 9.2 mg/dL (8.5-10.5); Carbon Dioxide 22 mmol/L (22-29); Chloride 99 mmol/L (98-107); Globulin 3.5 g/dL (1.3-4.6); Glucose 161 mg/dL (65-115); Lipase 26 U/L (13-60); Magnesium 2.3 mg/dL (1.7-2.3); Osmolality Calculated 285 mOsm/kg (285-295); Potassium 4.2 mmol/L (3.5-5.1); Sodium 137 mmol/L (136-145); Total Bilirubin 0.3 mg/dL (0.15-1.2); Total Protein 7.3 g/dL (6.6-8.7)
[2019-12-13] MEDS: sodium chloride 0.9% 1,000 ML 999 ML IV (16:32)
[2019-12-13 16:58] LABS: Troponin(5th) Baseline 31 ng/L (0-10)
[2019-12-13 17:18] LABS: Add Urine Microscopic? YES; Bilirubin Urine Neg (NEGATIVE); Blood Urine Neg (Negative); Glucose Urine UA Norm (Normal); Ketones Urine Negative (Negative); Leukocyte Esterase Urine Negative (Negative); Nitrate Urine Negative (Negative); Protein Urine Neg (Negative); Urine Appearance Hazy (CLEAR); Urine Color Yellow (Yellow); Urobilinogen Urine Norm (Negative); pH Urine 5 (5-7)
[2019-12-13 17:38] LABS: Reflex Lactate Order REFLEX LACTIC ORDERD
[2019-12-13 17:38] LABS: Add Urine Culture? No; Amorphous Sediment Urine 1+; Bacteria Urine TRACE; Hyaline Casts Urine 15-25; Mucus Urine TRACE; RBC Urine 0-4 /hpf (0-2); Squamous Epithelial Cell Urine 0-4 (0-5)
[2019-12-13 17:46] LABS: INR 1.36 (0.8-1.2)
[2019-12-13 17:47] LABS: Partial Thromboplastin Time 28.6 SECONDS (23.9-36.7)
--- NOTE | 2019-12-13 18:13 | ECG_ITS ---
[facility] Test Date: 2019-12-13 Pat Name: Nancy Brasher Department: Room: 276 Gender: Female Blanket Inspector: : 1945 Requested By: Wendie Baldwin Order Number: [id number] Jenkins MD: Brent Deluca M.D. Measurements Intervals [place] Rate: 99 P: 65 AR: 135 QRS: 33 QRSD: 84 T: 63 QT: 359 QTc: 462 Interpretive Statements SINUS RHYTHM LEFT ATRIAL ENLARGEMENT [-0.15mV P WAVE IN V1/V2] MODERATE ST DEPRESSION [0.05+ mV ST DEPRESSION] Compared to ECG 12/13/2019 16:30:12 Left ventricular hypertrophy no longer present ST (T wave) deviation still present Electronically Signed On 12-14-2019 20:26:05 CDT by Brent Deluca M.D. [id number]
--- NOTE | 2019-12-13 19:16 | P.HP_ITS ---
Providers/Chief Complaint Admitting Physician: Trey Willams MD Primary Care Provider: Mandeep Madrigal MD Chief Complaint: FALL History of Present Illness Nancy Brasher is a 74 year old female who recently had TAVR by Dr. Luciano on 10/17, had complicated hospital course requiring reintubation for pulmonary edema, after that procedure she developed atrial fibrillation with subsequent bilateral ganglial stroke initially with left gaze preference and right-sided hemiparesis which resolved without permanent deficit, patient was transferred to [place] for long-term acute care from there she was sent to [facility] in [place], she was released yesterday. Patient came to the ED today because of recurrent falls. Patient is stating that she lives alone, around 1030AM & 130PM she fell on the floor when she was feeling dizzy which she is describing as lightheaded, she is denying spinning of surrounding, she is denying seizure-like activities, chest pain, palpitations, loss of consciousness, hitting her head, nausea, vomiting, diarrhea, dysuria. She has been compliant with her medications including Eliquis, Lasix, losartan, amlodipine. She is stating that since her aortic valve replacement she has been feeling lightheaded, however at the [facility] and LTAC she did not experience any falls. She noticed a bruise on her right hip area. Diagnosis in the ER revealed Mild leukocytosis, stable hemoglobin, hematoma of right lateral hip area, positive orthostasis, ROBERTA, EKG showing right bundle branch block without ischemic or infarctive changes CT head unremarkable Patient was very pleasant and able to give me above-mentioned detail at the time my evaluation, was hypertensive, systolic blood pressure 150s Review of Systems Const: Reports: body aches and fatigue; Denies: fever(s) or chills Eyes: Denies: change in vision ENMT: Denies: throat pain Card: Reports: pre-syncope; Denies: chest pain, palpitations, swelling of feet/ankles, dyspnea on exertion or orthopnea Resp: Denies: dyspnea GI: Denies: abdominal pain, nausea, vomiting, diarrhea or constipation : Denies: flank pain or urinary frequency Musc: Denies: neck pain Skin/Breast: Reports: rash and new lesions Neuro: Denies: headache(s) Psych: Reports: anxiety Endo: Denies: polyuria Yong/Lymph: Denies: easy bruising All/Imm: Denies: urticaria Medications/Allergies Home Medications Medication Instructions Recorded Confirmed Last Taken Type Lactobacillus acidophilus 2 cap PO QAM 12/13/19 12/13/19 Unknown History albuterol sulfate 2.5 mg INHALATION Q6H PRN 12/13/19 12/13/19 Unknown History amlodipine 10 mg PO QAM 12/13/19 12/13/19 Unknown History apixaban [Eliquis] 5 mg PO BID 12/13/19 12/13/19 Unknown History aspirin [Aspir-81] 81 mg PO DAILY 12/13/19 12/13/19 Unknown History atorvastatin [Lipitor] 40 mg PO QPM 12/13/19 12/13/19 Unknown History furosemide [Lasix] 40 mg PO QAM 12/13/19 12/13/19 Unknown History hydralazine 50 mg PO BID 12/13/19 12/13/19 Unknown History ipratropium-albuterol 3 ml INHALATION BID 12/13/19 12/13/19 Unknown History losartan 50 mg PO QAM 12/13/19 12/13/19 Unknown History metoprolol tartrate 100 mg PO BID 12/13/19 12/13/19 Unknown History nystatin 5 ml PO QID 12/13/19 12/13/19 Unknown History venlafaxine 75 mg PO BID 12/13/19 12/13/19 Unknown History Allergies Allergy/AdvReac Type Severity Reaction Status Date / Time metronidazole [From Flagyl] Allergy ALGY-Rash Verified 12/13/19 14:56 PFSH Acute PFSH: Medical History Aortic stenosis, severe Arthropathy, unspecified Backache Bipolar affective disorder Chronic obstructive pulmonary disease, unspecified HTN (hypertension) Hypercholesterolemia Irritable bowel syndrome Labyrinthitis Peripheral vertigo RLS (restless legs syndrome) Sleep apnea Surgical History H/O eye surgery H/O foot surgery H/O oral surgery History of abdominal hysterectomy History of appendectomy Hx of cholecystectomy Status post aortic valve replacement with bioprosthetic valve Performed 10/17/[address] Luciano Family History Other Hypertension Social History Smoking and tobacco status: former smoker Quit status (tobacco): has quit using tobacco Year quit tobacco: 1979 - ciggs x 6 Years Alcohol intake: never Lives independently: Yes Household members: none Marital status: / Current occupational status: retired and disabled Pets and animals: Yes Pets & animals: dog(s) History of recent travel: No Current gender identity: Female Vitals/I&O/Wt Last Vital Signs Temp 98.0 F 12/13/19 14:54 Pulse 104 H 12/13/19 19:03 Resp 18 12/13/19 19:03 BP 140/69 12/13/19 19:03 Pulse Ox 100 12/13/19 19:03 Weight last 48 hrs Weight 68.039 kg Physical Exam Narrative: EXAM NARRATIVE: This is a pleasant female who is lying comfortably in her bed Awake alert oriented x3 GCS 15 No neurological deficit Hematoma of right lateral hip area noted No vascular compromise of lower extremities No lower extremity edema Clinically she looks dry Dry cracked lips S1, S2 systolic murmur left second intercostal space grade 2/6 Bilateral breath sounds without adventitious sounds Abdomen soft nontender bowel sound present No lower extremity edema gangrene or ulcer Appropriate mood and affect Data : 12/13/19 15:48 12/13/19 15:48 A&P Assessment and plan (1) Pre-syncope: Status: Acute (2) Dehydration: Status: Acute (3) Acute kidney injury superimposed on chronic kidney disease: Status: Acute (4) Sleep apnea: Status: Acute (5) Status post aortic valve replacement with bioprosthetic valve: Status: Acute (6) DNR (do not resuscitate): Status: Acute Additional A&P Information Presyncopal event Positive orthostasis in the ER I believe her symptoms are secondary to dehydration and polypharmacy use of valsartan, diuretics I do not hear loud murmur however grade 2/6 left second intercostal base murmur appreciated, chest x-ray does not show any acute pathology, No arrhythmia noted, right bundle branch block on EKG without ischemic or infarctive changes, low risk for PE as patient recently came from [facility], I would request a d-dimer Fluid resuscitation Hold antihypertensives Acute on chronic kidney disease: Baseline creatinine seems to be around 1.1, current creatinine 1.6 prerenal etiology, hold nephrotoxic agents, fluids agitation, patient is denying dysuria No decompensation of congestive heart failure Right hip hematoma without acute fractures Conservative management, TAVR No acute decompensation Bioprosthetic valve, not on any anticoagulation CVA without permanent deficit: History of A. fib RVR currently not on anticoagulation Kindly reevaluate anticoagulation indication DNR/DNI Cardiac diet DVT prophylaxis SCDs, would avoid anticoagulation secondary to hematoma formation Attestations Medical Necessity Statement*: Anticipating discharge in less than 48 hours continued IV fluid resuscitation for presyncopal event due to dehydration and polypharmacy, positive orthostasis Time Spent in Patient Care: (>than 50% of time spent in counselling and/or direct pt care on unit) . 50mins Coding Level of Care Code Acute Associate Professor Of Pathology for Chg Fwd Diagnoses Pre-syncope R55 Dehydration E86.0 Acute kidney injury superimposed on chronic kidney disease N17.9; N18.9 Sleep apnea G47.30 Status post aortic valve replacement with bioprosthetic valve Z95.3 DNR (do not resuscitate) Z66
[2019-12-13 19:26] LABS: Amphetamines Screen Urine Negative (Negative); Barbiturates Screen Urine Negative (Negative); Benzodiazepines Screen Urine Negative (Negative); Cocaine Screen Urine Negative (Negative); Opiate Screen Urine Negative (Negative); PCP Screen Urine Positive (Negative); THC Screen Urine Negative (Negative)
[2019-12-13] MEDS: sodium chloride 0.9% 1,000 ML 100 ML IV (20:26)
[2019-12-13] MEDS: ipratropium-albuterol 3 mL Neb INHALATION (21:25)
[2019-12-13 22:11] LABS: Lactic Acid level (Lactate) 1.6 mmol/L (0.5-2.2); Troponin 5 6HR 32.54 ng/L (0-10); Troponin 5 6HR Delta 1.54 ng/L (0-12)
[2019-12-14] VITALS (9 sets, daily range): BP systolic 117–144; BP diastolic 48–67; PULSE 72–118; RESP 16–20; TEMP 36.7–36.9; O2SAT 96–100
[2019-12-14] MEDS: acetaminophen 325 mg Tablet 650 MG PO ×2 (03:27→22:42)
[2019-12-14 04:35] LABS: Basophils # 0.1 10^3/uL (0.0-0.1); Basophils % 0.6 %; Eosinophils # 0.1 10^3/uL (0.0-0.8); Eosinophils % 0.6 %; Hematocrit 29.2 % (37.0-47.0); Hemoglobin 8.5 g/dL (11.5-15.3); Lymphocytes # 2.6 10^3/uL (0.8-4.8); Lymphocytes % 26.9 %; Mean Corpuscular HGB Conc 29.1 g/dL (30.0-36.0); Mean Corpuscular Hemoglobin 29.9 pg (28.0-34.0); Mean Corpuscular Volume 102.8 fL (81-99); Monocytes # 1.2 10^3/uL (0.2-0.9); Monocytes % 12.4 %; Neutrophils # 5.62 10^3/uL (1.8-7.7); Neutrophils % 59.2 %; Nucleated Red Blood Cells % 0 %; Platelet Count 177 10^3/cmm (130-400); Red Blood Count 2.84 10^6/uL (4.1-5.3); Red Cell Distribution Width 13.5 % (12.1-15.1); White Blood Count 9.5 10^3/uL (4.0-10.0)
[2019-12-14 05:06] LABS: Anion Gap 14.7 (5-19); Blood Urea Nitrogen 30 mg/dL (8-23); Calcium 7.9 mg/dL (8.5-10.5); Carbon Dioxide 22 mmol/L (22-29); Chloride 104 mmol/L (98-107); Glucose 141 mg/dL (65-115); Osmolality Calculated 283 mOsm/kg (285-295); Potassium 3.7 mmol/L (3.5-5.1); Sodium 137 mmol/L (136-145)
[2019-12-14] MEDS: sodium chloride 0.9% 1,000 ML 100 ML IV (05:50)
[2019-12-14] MEDS: hyDRALAzine 50 mg Tablet PO ×2 (09:18→17:06)
[2019-12-14] MEDS: venlafaxine 75 mg Tablet PO ×2 (09:18→17:06)
--- NOTE | 2019-12-14 10:34 | P.PN_ITS ---
Subjective Subjective: Interval history: Patient is somnolent this morning. Reports that she did not sleep well last night. Reports that she continues to be lightheaded and dizzy. She is alert and oriented x3. She clinically appears dry. She has been orthostatic on presentation. Her hemoglobin dropped down to 8.5 and platelets are down to 177. She had significant bleeding to her right thigh but it is not tender on palpation. She denies melena or hematochezia. Denies headache. Her aspirin and Eliquis currently on hold. Vitals/I&O/Wt Last Vital Signs Temp 98.3 F 12/14/19 07:59 Pulse 72 12/14/19 09:10 Resp 18 12/14/19 09:10 BP 140/65 12/14/19 07:59 Pulse Ox 96 12/14/19 09:10 12/13/19 12/14/19 12/14/19 22:59 06:59 14:59 Intake Total 100 / 100 1040 / 1140 360 / 360 Output Total 300 / 300 400 / 400 Balance 100 / 100 740 / 840 -40 / -40 Weight last 48 hrs Weight 68.039 kg Physical Exam Const: COMMON NORMALS: no acute distress and patient oriented x3 Resp: COMMON NORMALS: normal respiratory effort and clear to auscultation bilaterally AUSCULTATION: clear to auscultation bilaterally Cardio: COMMON NORMALS: regular rate, regular rhythm and S2 normal heart sound present RATE: regular rate RHYTHM: regular rhythm HEART SOUNDS: S2 normal heart sound present OTHER: No lower extremity edema GI: COMMON NORMALS: Normal to inspection, nondistended, normoactive bowel sounds present, Soft to palpation and non-tender PALPATION: Yes Soft to palpation Neuro: COMMON NORMALS: patient oriented x3 and no focal motor deficits Data : 12/14/19 04:00 12/14/19 04:00 A&P Assessment and plan (1) Pre-syncope: Status: Acute (2) Dehydration: Status: Acute (3) Acute kidney injury superimposed on chronic kidney disease: Status: Acute (4) Sleep apnea: Status: Acute (5) Status post aortic valve replacement with bioprosthetic valve: Status: Acute (6) DNR (do not resuscitate): Status: Acute (7) Acute post-hemorrhagic anemia: Present on admission. Patient is bleeding to her right thigh. Status: Acute Additional A&P Information PLAN: Switch IV fluids to LR and continue at 75 mL/h. Monitor ins and outs. Continue holding antiplatelet medications and anticoagulation. We will give 5 mg vitamin K. Monitor vitals and avoid any antihypertensive medications for now. Physical therapy. DNR/DNI Cardiac diet DVT prophylaxis SCDs, would avoid anticoagulation secondary to hematoma formation Attestations Medical Necessity Statement*: Patient was acute blood loss anemia requires close inpatient monitoring and treatment. Time Spent in Patient Care: 16 - 35 minutes Coding Level of Care Code Acute Chalk Molding Machine Operator for Chg Fwd Diagnoses Pre-syncope R55 Dehydration E86.0 Acute kidney injury superimposed on chronic kidney disease N17.9; N18.9 Sleep apnea G47.30 Status post aortic valve replacement with bioprosthetic valve Z95.3 DNR (do not resuscitate) Z66 Acute post-hemorrhagic anemia D62
[2019-12-14] MEDS: phytonadione (ADULT) 10 mg/mL Ampule 1 mL 5 MG PO (11:00)
[2019-12-14] MEDS: lactated ringers 1,000 ML 75 ML IV (11:02)
--- NOTE | 2019-12-14 11:13 | PC.NURSE ---
Beena rounding Per Dr. Willams, patient to remain in house, SS working on possible SNF placement.
--- NOTE | 2019-12-14 13:53 | PC.CHAP ---
Pastoral Care Encounter/Spiritual Assessment Type of Contact [] Declined stock preparer visit [] Patient/Family/Request visit [] Outpatient visit [] Follow-up visit [] Physician referral [] Code/Alert [X] Routine visit [] Staff referral [] Actively dying [] Patient sleeping [] Family support [] [] Out of room [] Palliative care [] [] Receiving care in room [] Pre-surgical visit [] Trauma [] Long length of stay [] ICU visit [] Other: Relational/Emotional Strength [] Patient feels connected with others/family/visitors/staff [] Distress [] Loneliness/isolation [] Abandonment Spirituality of Patient [] Person of Maile [] Attends Mandaen of their Maile [] Believes in Prayer [] Reads Bible or Religion materials [] There are Spiritual issues to be addressed Editor [employer] Interventions [] Prayer [] Active listening [] Non-anxious presence [] Spiritual/emotional support [] Crisis/trauma care [] Spiritual counseling [] Bereavement support [] Provided bereavement packet [] Provided Bible/devotional materials [] Provided toy/stuffed animal, coloring book to patient or family member [] Provided Communion [] Anointing/Dale [] Salvation [] Completed spiritual assessment [] Other: Impact on Illness or Injury [] Angry [] Fearful [] Anxious [] Often cries [] Exhaustion [] Unable to work [] Unable to attend faith [] Unable to walk/stand [] Unable to read [] Unable to drive [] Unable to eat/drink [] Unable to sleep [] Unable to be with family [] Patient intubated [] Other: Summary Time spent with patient
[2019-12-14] MEDS: atorvastatin 40 mg Tablet PO (17:06)
[2019-12-14] MEDS: ipratropium-albuterol 3 mL Neb INHALATION (20:43)
[2019-12-15] VITALS (9 sets, daily range): BP systolic 127–157; BP diastolic 60–68; PULSE 99–109; RESP 12–24; TEMP 36.6–37.8; O2SAT 96–100
[2019-12-15] MEDS: lactated ringers 1,000 ML 75 ML IV (03:26)
[2019-12-15] MEDS: ipratropium-albuterol 3 mL Neb INHALATION ×2 (07:59→20:31)
[2019-12-15] MEDS: hyDRALAzine 50 mg Tablet PO ×2 (09:08→17:33)
[2019-12-15] MEDS: venlafaxine 75 mg Tablet PO ×2 (09:08→17:35)
[2019-12-15 10:29] LABS: Basophils % 0.5 %; Eosinophils # 0.1 10^3/uL (0.0-0.8); Eosinophils % 1.5 %; Hematocrit 25.2 % (37.0-47.0); Hemoglobin 7.8 g/dL (11.5-15.3); Lymphocytes # 1.5 10^3/uL (0.8-4.8); Lymphocytes % 20.6 %; Mean Corpuscular Hemoglobin 30.8 pg (28.0-34.0); Mean Corpuscular Volume 99.6 fL (81-99); Mean Platelet Volume 11.2 fL (7.4-10.4); Monocytes % 13.7 %; Neutrophils # 4.61 10^3/uL (1.8-7.7); Neutrophils % 63.4 %; Nucleated Red Blood Cells % 0 %; Platelet Count 143 10^3/cmm (130-400); Red Blood Count 2.53 10^6/uL (4.1-5.3); Red Cell Distribution Width 13.4 % (12.1-15.1); White Blood Count 7.3 10^3/uL (4.0-10.0)
[2019-12-15 10:52] LABS: Alanine Aminotransferase 16 U/L (0-33); Albumin Level 3.3 g/dL (3.5-5.2); Alkaline Phosphatase 89 IU/L (35-105); Anion Gap 11.6 (5-19); Aspartate Amino Transferase 24 U/L (0-32); Blood Urea Nitrogen 14 mg/dL (8-23); Calcium 8.1 mg/dL (8.5-10.5); Carbon Dioxide 25 mmol/L (22-29); Chloride 107 mmol/L (98-107); Globulin 2.8 g/dL (1.3-4.6); Glucose 198 mg/dL (65-115); Osmolality Calculated 292 mOsm/kg (285-295); Potassium 3.6 mmol/L (3.5-5.1); Sodium 140 mmol/L (136-145); Total Bilirubin 0.2 mg/dL (0.15-1.2); Total Protein 6.1 g/dL (6.6-8.7)
--- NOTE | 2019-12-15 11:47 | PM.PN ---
Subjective Subjective: Interval history: Patient reports feeling better this morning. Denies lightheadedness or dizziness. Denies chest pain or shortness of breath. Denies abdominal pain and had no evidence of melena or hematochezia. Her hemoglobin dropped down to 7.8 and appears to be related to right thigh bleeding Vitals/I&O/Wt Last Vital Signs Temp 98.5 F 12/15/19 11:18 Pulse 104 H 12/15/19 11:18 Resp 16 12/15/19 11:18 BP 156/60 12/15/19 11:18 Pulse Ox 98 12/15/19 11:18 12/14/19 12/15/19 12/15/19 22:59 06:59 14:59 Intake Total 1200 / 1800 360 / 360 Output Total 900 / 1501 850 / 2351 350 / 350 Balance -900 / -901 350 / -551 Weight last 48 hrs Weight 68.039 kg Physical Exam Const: COMMON NORMALS: no acute distress and patient oriented x3 Resp: COMMON NORMALS: normal respiratory effort and clear to auscultation bilaterally AUSCULTATION: clear to auscultation bilaterally Cardio: COMMON NORMALS: regular rate, regular rhythm and S2 normal heart sound present RATE: regular rate RHYTHM: regular rhythm HEART SOUNDS: S2 normal heart sound present OTHER: No lower extremity edema GI: COMMON NORMALS: Normal to inspection, nondistended, normoactive bowel sounds present, Soft to palpation and non-tender PALPATION: Yes Soft to palpation Neuro: COMMON NORMALS: patient oriented x3 and no focal motor deficits Data : 12/15/19 10:08 12/15/19 10:08 A&P Assessment and plan (1) Pre-syncope: Status: Acute (2) Dehydration: Status: Acute (3) Acute kidney injury superimposed on chronic kidney disease: Status: Acute (4) Sleep apnea: Status: Acute (5) Status post aortic valve replacement with bioprosthetic valve: Status: Acute (6) DNR (do not resuscitate): Status: Acute (7) Acute post-hemorrhagic anemia: Present on admission. Patient is bleeding to her right thigh. Status: Acute Additional A&P Information PLAN: We will stop IV fluids. Continue holding aspirin and Eliquis. Would like to see hemoglobin to stabilize before discharge. Consider transfusion if drops below 7. DNR/DNI Cardiac diet DVT prophylaxis SCDs, would avoid anticoagulation secondary to hematoma formation Attestations Medical Necessity Statement*: Patient with declining hemoglobin requires close inpatient monitoring and treatment until deemed safe for discharge. Coding Level of Care Code Acute Logistics And Planning Manager for Chg Fwd Diagnoses Pre-syncope R55 Dehydration E86.0 Acute kidney injury superimposed on chronic kidney disease N17.9; N18.9 Sleep apnea G47.30 Status post aortic valve replacement with bioprosthetic valve Z95.3 DNR (do not resuscitate) Z66 Acute post-hemorrhagic anemia D62
[2019-12-15] MEDS: atorvastatin 40 mg Tablet PO (17:33)
[2019-12-16] VITALS (8 sets, daily range): BP systolic 117–165; BP diastolic 57–74; PULSE 84–116; RESP 18–25; TEMP 36.9–37.1; O2SAT 98–100
[2019-12-16 05:47] LABS: Basophils % 0.5 %; Eosinophils # 0.2 10^3/uL (0.0-0.8); Eosinophils % 2.5 %; Hematocrit 26.2 % (37.0-47.0); Hemoglobin 7.8 g/dL (11.5-15.3); Lymphocytes # 1.9 10^3/uL (0.8-4.8); Lymphocytes % 23.6 %; Mean Corpuscular HGB Conc 29.8 g/dL (30.0-36.0); Mean Corpuscular Hemoglobin 30.7 pg (28.0-34.0); Mean Corpuscular Volume 103.1 fL (81-99); Mean Platelet Volume 10.4 fL (7.4-10.4); Monocytes # 0.9 10^3/uL (0.2-0.9); Monocytes % 11.7 %; Neutrophils # 4.86 10^3/uL (1.8-7.7); Neutrophils % 61.3 %; Nucleated Red Blood Cells % 0 %; Platelet Count 146 10^3/cmm (130-400); Red Blood Count 2.54 10^6/uL (4.1-5.3); Red Cell Distribution Width 13.3 % (12.1-15.1); White Blood Count 7.9 10^3/uL (4.0-10.0)
[2019-12-16 06:17] LABS: Alanine Aminotransferase 20 U/L (0-33); Albumin Level 3.2 g/dL (3.5-5.2); Alkaline Phosphatase 87 IU/L (35-105); Anion Gap 12.9 (5-19); Aspartate Amino Transferase 23 U/L (0-32); Blood Urea Nitrogen 10 mg/dL (8-23); Carbon Dioxide 24 mmol/L (22-29); Chloride 106 mmol/L (98-107); Creatinine Clr Calc Pharmacy 52.3193; Globulin 2.7 g/dL (1.3-4.6); Glucose 134 mg/dL (65-115); Osmolality Calculated 286 mOsm/kg (285-295); Potassium 3.9 mmol/L (3.5-5.1); Sodium 139 mmol/L (136-145); Total Bilirubin 0.3 mg/dL (0.15-1.2); Total Protein 5.9 g/dL (6.6-8.7)
[2019-12-16] MEDS: venlafaxine 75 mg Tablet PO (08:16)
[2019-12-16] MEDS: hyDRALAzine 50 mg Tablet PO (08:16)
[2019-12-16] MEDS: ipratropium-albuterol 3 mL Neb INHALATION (08:36)
--- NOTE | 2019-12-16 10:02 | P.DS_ITS ---
Discharge Providers Date of Admission: 12/14/19 15:05 Date of Discharge: December 16, 2019 Attending Provider at Admission: Trey Willams MD Attending Provider at Discharge: Trey Willams MD Primary Care Provider: Mandeep Madrigal MD Diagnoses at Discharge Discharge Diagnosis (1) Pre-syncope: Status: Acute (2) Dehydration: Status: Acute (3) Acute kidney injury superimposed on chronic kidney disease: Status: Acute (4) Sleep apnea: Status: Acute (5) Status post aortic valve replacement with bioprosthetic valve: Status: Acute Problem details: Performed 10/17/[address] Luciano (6) DNR (do not resuscitate): Status: Acute (7) Acute post-hemorrhagic anemia: Status: Acute Reason for Visit Reason for Visit: FALL Hospital Course Discharge Summary: Patient presented with syncopal episode secondary dehydration and acute posthemorrhagic anemia. She had evidence of acute kidney injury. She had significant bleeding to her right thigh which felt to be the reason of large hemoglobin drop down to 7.8. She denied any abdominal pain, melena or hematochezia. She was treated with IV fluids and her symptoms completely resolved and this morning patient reports feeling much better and strong enough to be dismissed to nursing facility for further rehabilitation. Her hemoglobin is stable and remains at 7.8 this morning. She reports good appetite. She is slightly tachycardic this morning because of held metoprolol and this was restarted. Her home antihypertensive medications will also be restarted including Lasix given patient's improved oral intake and appetite. Although I will change Lasix to every other day to decrease chance of dehydration. Her EF was normal on recent echocardiogram. Patient's fluid status will need to be monitored and medications adjusted as needed. She showed no evidence of infectious process. This morning patient denies shortness of breath or chest pain. I will hold aspirin and Eliquis for 1 week and request lab work in several days prior to primary care physician follow-up. Physical Exam Const: COMMON NORMALS: no acute distress and patient oriented x3 Resp: COMMON NORMALS: normal respiratory effort and clear to auscultation bilaterally AUSCULTATION: clear to auscultation bilaterally Cardio: COMMON NORMALS: regular rate, regular rhythm and S2 normal heart sound present RATE: regular rate RHYTHM: regular rhythm HEART SOUNDS: S2 normal heart sound present OTHER: No lower extremity edema GI: COMMON NORMALS: Normal to inspection, nondistended, normoactive bowel sounds present, Soft to palpation and non-tender PALPATION: Yes Soft to palpation Neuro: COMMON NORMALS: patient oriented x3 and no focal motor deficits Discharge Data Data Completed and Pending: Completed Studies During Hospitalization Category Date Time Status CT abdomen pelvis wo con [id number] Urge nt Cat Scan 12/13/19 15:[address] cervical spin wo con* [id number] Urge nt Cat Scan 12/13/19 15:[address] head wo con* [id number] Urgent Cat Scan 12/13/19 15:14 Completed XR chest 1V mariella ble [id number] Urgent Exams 12/13/19 15:14 Completed Pending at discharge Category Date Time Status Complete Blood Co unt w/Auto AM LABS Lab 12/17/19 04:00 Ordered Complete Blood Co unt w/Auto AM LABS Lab 12/18/19 04:00 Ordered Comprehensive Met abolic Panel AM LA BS Lab 12/17/19 04:00 Ordered Comprehensive Met abolic Panel AM LA BS Lab 12/18/19 04:00 Ordered Labs from last 24 hours 12/16/19 12/16/19 12/15/19 05:33 05:33 10:08 WBC 7.9 RBC 2.54 L Hgb 7.8 L Hct 26.2 L MCV 103.1 H MCH 30.7 MCHC 29.8 L RDW 13.3 Plt Count 146 MPV 10.4 Neut % (Auto) 61.3 Lymph % (Auto) 23.6 [place] % (Auto) 11.7 Eos % (Auto) 2.5 Baso % (Auto) 0.5 Neut # (Auto) 4.86 Lymph # (Auto) 1.9 [place] # (Auto) 0.9 Eos # (Auto) 0.2 Baso # (Auto) 0.0 Nucleated RBC % (a uto) 0 Nucleated RBCs # 0.0 Sodium 139 140 Potassium 3.9 3.6 Chloride 106 107 Carbon Dioxide 24 25 Anion Gap 12.9 11.6 BUN 10 14 Creatinine 0.9 0.8 GFR Calculation Not Reportable Not Reportable Glucose 134 H 198 H Calculated Osmolal ity 286 292 Calcium 8.0 L 8.1 L Total Bilirubin 0.3 0.2 AST 23 24 ALT 20 16 Alkaline Phosphata se 87 89 Total Protein 5.9 L 6.1 L Albumin 3.2 L 3.3 L Globulin 2.7 2.8 12/15/19 10:08 WBC 7.3 RBC 2.53 L Hgb 7.8 L Hct 25.2 L MCV 99.6 H MCH 30.8 MCHC 31.0 RDW 13.4 Plt Count 143 MPV 11.2 H Neut % (Auto) 63.4 Lymph % (Auto) 20.6 [place] % (Auto) 13.7 Eos % (Auto) 1.5 Baso % (Auto) 0.5 Neut # (Auto) 4.61 Lymph # (Auto) 1.5 [place] # (Auto) 1.0 H Eos # (Auto) 0.1 Baso # (Auto) 0.0 Nucleated RBC % (a uto) 0 Nucleated RBCs # 0.0 Sodium Potassium Chloride Carbon Dioxide Anion Gap BUN Creatinine GFR Calculation Glucose Calculated Osmolal ity Calcium Total Bilirubin AST ALT Alkaline Phosphata se Total Protein Albumin Globulin Vitals: Last Vital Signs Temp 98.5 F 12/16/19 07:19 Pulse 116 H 12/16/19 08:46 Resp 18 12/16/19 08:38 BP 165/72 12/16/19 07:19 Pulse Ox 99 12/16/19 08:38 Discharge Plan Discharge Patient Disposition: Xfer SNF Condition: Stable Prescriptions: Continued losartan 50 mg Tablet 50 mg PO QAM RF: 0 Lipitor 40 mg Tablet 40 mg PO QPM RF: 0 nystatin 100,000 unit/mL Suspension 5 ml PO QID RF: 0 venlafaxine 75 mg tablet 75 mg PO BID RF: 0 ipratropium-albuterol 0.5 mg-3 mg(2.5 mg base)/3 mL Solution For Nebulization 3 ml INHALATION BID RF: 0 albuterol sulfate 2.5 mg /3 mL (0.083 %) Solution For Nebulization 2.5 mg INHALATION Q6H PRN (Reason: Shortness Of Breath) RF: 0 metoprolol tartrate 100 mg Tablet 100 mg PO BID RF: 0 amlodipine 10 mg Tablet 10 mg PO QAM RF: 0 hydralazine 50 mg Tablet 50 mg PO BID RF: 0 Lactobacillus acidophilus 2 cap PO QAM RF: 0 Changed Lasix 40 mg Tablet 40 mg PO EVERY OTHER DAY Qty: 0 RF: 0 Held Aspir-81 81 mg Tablet,Delayed Release (Dr/Ec) 81 mg PO DAILY RF: 0 Hold Instructions: Resume on 12/23/19. Eliquis 5 mg Tablet 5 mg PO BID RF: 0 Hold Instructions: Resume on 12/23/19. Discharge Orders: Discharge Order (Routine); Ordered 12/16/19 Ordered By: Trey Willams Other Ambulatory Orders: Complete Blood Count w/Auto (Routine) Timeframe: 20191219 Location: Determined by Patient Ordered By: Trey Willams Referrals: Mandeep Madrigal MD [Primary Care Provider] - 12/23/19 3:30 pm (You have an appointment on December 22 at 3:30pm) Discharge Diet: Advance as tolerated Discharge Activity: Increase activity as tolerated Patient Instructions: Anemia, Acute Kidney Injury (DC), Iron Rich Diet (DC) Activity Restrictions/Additional Instructions: Please call your doctor or present to emergency department if your condition worsens or you develop diarrhea, lightheadedness, fatigue or see blood in your stool or black stool. Please note that your aspirin and Eliquis are on hold for 1 week and you will have to have repeat lab work with results sent to primary care physician prior to reinitiation to make sure your hemoglobin improves. Discharge Attestations Time Spent in Discharge Care*: greater than 30 min Quality Metrics Clinical Quality Measures During this hospital stay, did patient experience: None Coding Level of Care Code Acute Zipper Measurer for Pastor Fwd Exam Detailed Diagnoses Pre-syncope R55 Dehydration E86.0 Acute kidney injury superimposed on chronic kidney disease N17.9; N18.9 Sleep apnea G47.30 Status post aortic valve replacement with bioprosthetic valve Z95.3 DNR (do not resuscitate) Z66 Acute post-hemorrhagic anemia D62
[2019-12-16] MEDS: metoprolol tartrate 50 mg Tablet 100 MG PO (10:48)
== END 2019-12-16 15:18 | disposition skilled nursing facility (03) | DRG 812 ==
LOC: ER 18:14 → MEDSURG 18:41
PROVIDERS: Emergency Medicine; Physician Assistant; Admitting Provider Internal Medicine; PCP Family Medicine; Visit Provider Internal Medicine
DX: D62 Acute posthemorrhagic anemia (principal); N17.9 Acute kidney failure, unspecified; R55 Syncope and collapse; Z95.2 Presence of prosthetic heart valve; Z86.73 Personal history of transient ischemic attack (TIA), and cerebral infarction without residual deficits; S70.01XA Contusion of right hip, initial encounter; W18.30XA Fall on same level, unspecified, initial encounter; I12.9 Hypertensive chronic kidney disease with stage 1 through stage 4 chronic kidney disease, or unspecified chronic kidney disease; N18.9 Chronic kidney disease, unspecified; J44.9 Chronic obstructive pulmonary disease, unspecified; E78.00 Pure hypercholesterolemia, unspecified; K58.9 Irritable bowel syndrome, unspecified; G25.81 Restless legs syndrome; G47.30 Sleep apnea, unspecified; Z87.891 Personal history of nicotine dependence; E86.0 Dehydration; Z66 Do not resuscitate
CPT/HCPCS: 12345; 36415; 70450; 71045; 72125; 74176; 80048; 80053; 80306; 81001; 83605; 83690; 83735; 84484; 85025; 85610; 85730; 93005; 94640; 99283; G0378; J3430; J7030

== ENCOUNTER 2020-02-27 13:47 | Outpatient (CLI) | payer MEDICARE, OTHER, MEDICAID, SELFPAY ==
--- NOTE | 2020-02-27 13:53 | USCV_ITS ---
Nancy Brasher Age: 74 Gender: F : 1945 Exam Date: 02/27/2020 14:18 Ordering Phys: Mandeep Madrigal MD Technologist: Tonya Linn [place] [facility] [place]: AO Valve replacement BP: 120 / 51 HR: 89 Rhythm: Sinus Technical Quality: Adequate MEASUREMENTS (Male / Female) Normal Values 2D ECHO LV Diastolic Diameter PLAX 3.5 cm 4.2 - 5.9 / 3.9 - 5.3 cm LV Systolic Diameter PLAX 0.8 cm IVS Diastolic Thickness 1.3 cm 0.6 - 1.0 / 0.6 - 0.9 cm IVS Systolic Thickness 1.7 cm LVPW Diastolic Thickness 0.9 cm 0.6 - 1.0 / 0.6 - 0.9 cm LVPW Systolic Thickness 1.4 cm LVOT Diameter 2.0 cm LV Ejection Fraction 2D Teich 97.8 % LV Ejection Fraction MOD 2C 72.7 % LV Ejection Fraction 2C AL 70.6 % LA Diameter 3.4 cm LA Width 2.5 cm LA Height 4.1 cm RA Width 2.8 cm RA Height 2.9 cm M-MODE LV Diastolic Diameter MM 3.8 cm 4.2 - 5.9 / 3.9 - 5.3 cm LV Systolic Diameter MM 2.3 cm LV Ejection Fraction MM Teich 71.7 % IVS Diastolic Thickness MM 0.7 cm 0.6 - 1.0 / 0.6 - 0.9 cm IVS Systolic Thickness MM 1.1 cm LVPW Diastolic Thickness MM 1.0 cm 0.6 - 1.0 / 0.6 - 0.9 cm LVPW Systolic Thickness MM 1.3 cm Aortic Annulus Diameter 2.4 cm LA Ao Ratio MM 1.6 MV E Point Septal Separation 0.1 cm DOPPLER AV Peak Velocity 189.3 cm/s LVOT Peak Velocity 139.0 cm/s AV Area Cont Eq vti 1.7 cm squared AV Area Cont Eq pk 2.3 cm squared MV Peak Velocity 134.0 cm/s MV Area PHT 2.8 cm squared Mitral E to A Ratio 0.6 MV E' Velocity 39.0 cm/s Mitral E to MV E' Ratio 12.5 Mitral E to LV E' Lateral Ratio 10.3 Mitral E to LV E' Septal Ratio 16.2 TR Peak Velocity 146.5 cm/s TR Peak Gradient 8.6 mmHg Right Atrial Pressure 3.0 mmHg Pulmonary Artery Systolic Pressu 11.6 mmHg PV Peak Velocity 100.7 cm/s RV Acceleration Time 0.1 s FINDINGS Left Ventricle Normal left ventricular cavity size. Normal left ventricular systolic function. No regional wall motion abnormalities. Left ventricular ejection fraction is estimated at 60 %. Grade I/IV diastolic dysfunction (abnormal relaxation filling pattern), normal to mildly elevated filling pressures. There appeared to be crowding of the left ventricular outflow tract cannot rule out chordal Markie Right Ventricle The right ventricle is normal in size and function. Right Atrium The right atrium is normal in size. Left Atrium The left atrium is normal in size. Mitral Valve Structurally normal mitral valve without significant stenosis or prolapse. There is no mitral regurgitation. Aortic Valve There appeared to be bioprosthetic aortic valve sitting in normal position without significant valvular or paravalvular leak. Tricuspid Valve [id number] tricuspid valve regurgitation. Pulmonic Valve Structurally normal pulmonic valve without significant stenosis. There is no pulmonic regurgitation. Pericardium Normal pericardium without effusion. Aorta Normal ascending aorta dimension. CONCLUSIONS 1-Normal left ventricular cavity size. Normal left ventricular systolic function. No regional wall motion abnormalities. Left ventricular ejection fraction is estimated at 60 %. Grade I/IV diastolic dysfunction (abnormal relaxation filling pattern), normal to mildly elevated filling pressures. There appeared to be crowding of the left ventricular outflow tract cannot rule out chordal Markie. 2-Pock-sc-moderate tricuspid valve regurgitation. 3-There appeared to be bioprosthetic aortic valve sitting in normal position without significant valvular or paravalvular leak. 4-There is no pericardial effusion. 5-Pulmonary artery systolic pressure is within normal limits. 6-Right atrial pressure is around 5 mm of mercury. 7-No significant change since the prior echocardiogram study of 10/25/2019. Brent Deluca MD (Electronically Signed) Final Date: 01 March 2020 18:26 S
== END 2020-02-27 13:48 | disposition home or self-care (01) ==
LOC: RAD 13:48
PROVIDERS: PCP Family Medicine; Visit Provider Family Medicine
DX: Z95.2 Presence of prosthetic heart valve (principal)
CPT/HCPCS: 93306

== ENCOUNTER 2020-04-02 13:14 | Outpatient (CLI) | payer MEDICARE, OTHER, MEDICAID, SELFPAY ==
--- NOTE | 2020-04-02 13:23 | MR_ITS ---
WS: [id number] MRI BRAIN WITH AND WITHOUT CONTRAST HISTORY: NEUROLOGICAL MOVEMENT DISORDER COMPARISON: 11/20/[address] head 12/13/2019. TECHNIQUE: Multiplanar imaging performed through the brain with Prohance 14 ml's IV. No acute infarcts are seen. Blanco-white matter differentiation is well preserved. Moderate periventric ular area of increased signal intensity on the FLAIR and T2 sequences. No prior large territory infar ct or hemorrhage. No susceptibility artifacts or prior lacunar infarcts. Ventricles and extra-axial spaces are normal. Clivus and pituitary gland are normal. Visualized posterior fossa and brainstem are also normal. Postcontrast images are negative for masses or vascular malformations. Dural venous sinuses are normal. Paranasal sinuses: Well aerated with no significant disease. Mastoid air cells: Normal. Calvarium and scalp: Normal. MR/MR head wo/w con [id number] IMPRESSION: 1. Moderate chronic microvascular ischemic changes in the periventricular whit e matter. Significant progression of disease since 2006. 2. No acute infarct or enhancing mass.
== END 2020-04-02 13:15 | disposition home or self-care (01) ==
LOC: RADSHAW 13:21
PROVIDERS: PCP Family Medicine; Visit Provider Family Medicine
DX: G24.9 Dystonia, unspecified (principal)
CPT/HCPCS: 70553; A9579

== ENCOUNTER 2020-05-14 13:32 | Outpatient (CLI) | payer MEDICARE, OTHER, MEDICAID, SELFPAY ==
--- NOTE | 2020-05-14 13:42 | MM_ITS ---
WS: [id number] SCREENING DIGITAL MAMMOGRAM WITH CAD HISTORY: SCREENING COMPARISON: 03/21/2009, 09/18/2017, 10/14/2018, 07/29/2017 Bilateral CC and MLO views submitted. Computer aided detection analyzed. Breast composition: There are scattered areas of fibroglandular density. The nodule central to the RI GHT nipple and just inferior measures 8.4 mm within the RIGHT breast. This nodule has been seen on pr ior studies but is slightly larger in size and more dense. There is an additional lymph node which is stable in the posterior LEFT breast. MM/[place] [id number] IMPRESSION: BI-RADS: 0-Incomplete: Need additional imaging evaluation FOLLOW UP: Need Additional Imaging RIGHT breast: Spot compression views (CC and MLO). True ML. Ultrasound to follo w if abnormality persists. This nodule has been worked up recently but has slightly increased in size and become more dense.
== END 2020-05-14 13:33 | disposition home or self-care (01) ==
LOC: RADSHAW 13:40
PROVIDERS: PCP Family Medicine; Visit Provider Family Medicine
DX: Z12.31 Encounter for screening mammogram for malignant neoplasm of breast (principal); N63.10 Unspecified lump in the right breast, unspecified quadrant
CPT/HCPCS: 77067

== ENCOUNTER 2020-05-28 12:24 | Outpatient (CLI) | payer MEDICARE, OTHER, MEDICAID, SELFPAY ==
--- NOTE | 2020-05-28 13:07 | US_ITS ---
WS: [id number] ADDITIONAL VIEWS RIGHT BREAST RIGHT breast ultrasound, limited HISTORY: ABNORMAL MAMMOGRAM COMPARISON: 05/14/2020, 10/22/2018, 09/18/2017 and 07/29/2017 Compression views right CC and MLO projection. True ML also submitted. Slightly lobulated mass of increased density measures 10 x 10 mm at 6:00 of the RIGHT breast. This no dule has very slightly increased in size since the prior examinations. Margins are well circumscribed . RIGHT breast ultrasound, limited. At 6:00 at the areolar margin is a lobulated low-attenuation mass measuring 8 x 7 x 7 mm. This is lob ulated with some through transmission. No increased vascularity. This is not a simple cyst. US/US breast RT limited* [id number] IMPRESSION: BI-RADS: 4-Suspicious Finding-Biopsy Should Be Considered FOLLOW-UP: Biopsy Recommended Ultrasound-guided biopsy recommended of the mass in the RIGHT breast labeled 6 :00. This may be a complex cyst but it has increased slightly in size and is no t a simple cyst. Recommend biopsy to exclude malignancy.
== END 2020-05-28 12:25 | disposition home or self-care (01) ==
LOC: RADSHAW 12:27
PROVIDERS: PCP Family Medicine; Visit Provider Family Medicine
DX: R92.8 Other abnormal and inconclusive findings on diagnostic imaging of breast (principal); N63.15 Unspecified lump in the right breast, overlapping quadrants
CPT/HCPCS: 76642; 77065

== ENCOUNTER 2020-06-22 12:18 | Outpatient (CLI) | payer MEDICARE, OTHER, MEDICAID, SELFPAY ==
--- NOTE | 2020-06-22 12:31 | US_ITS ---
WS: [id number] ULTRASOUND-GUIDED RIGHT BREAST ASPIRATION CLINICAL INFORMATION: MASS @ 6 OCLOCK RT BREAST COMPARISON: None. FINDINGS: The procedure including risks, benefits, and complications were discussed with the patient who agreed to proceed. Using sterile technique patient was prepped and draped in the usual sterile fashion. Aft er 1% lidocaine utilizing real-time ultrasound guidance the lobulated lesion at the 6 clock position was aspirated. Approximately 10 cc of bloody fluid was obtained. Fluid was sent for cytology. Subsequ ently a titanium clip was placed in the biopsy cavity. No immediate complications. US/[place] [id number] IMPRESSION: 1. Uncomplicated ultrasound-guided right breast aspiration 2. The cytology demonstrates no atypia or malignancy. BI-RADS: 2-Benign FOLLOW UP: 1 Year Follow-up Recommend return to annual screening mammography.
== END 2020-06-22 12:19 | disposition home or self-care (01) ==
LOC: RAD 12:18
PROVIDERS: PCP Family Medicine; Visit Provider Family Medicine
DX: N60.01 Solitary cyst of right breast (principal)
CPT/HCPCS: 19000; 19083; 76942; 88112; 88305

== ENCOUNTER → 2020-06-26 13:41 | Outpatient (BNVA) | payer MEDICARE, OTHER, MEDICAID, SELFPAY | PROVIDERS: PCP Family Medicine; Referring Provider Family Medicine; Visit Provider Specialist | DX: G24.01 Drug induced subacute dyskinesia (principal); T43.505A Adverse effect of unspecified antipsychotics and neuroleptics, initial encounter; G24.3 Spasmodic torticollis; M54.2 Cervicalgia; G37.9 Demyelinating disease of central nervous system, unspecified; Z87.891 Personal history of nicotine dependence | CPT/HCPCS: 99215 ==

== ENCOUNTER 2020-06-26 16:20 | Outpatient (CLI) | payer MEDICARE, OTHER, MEDICAID, SELFPAY ==
--- NOTE | 2020-06-26 16:54 | XR_ITS ---
WS: [id number] Lateral views of cervical spine in the flexion, extension and neutral positions. 06/26/2020 Clinical Data: M54.2 - Cervicalgia Comparison: None. Findings: There is degenerative disc narrowing at C5-C6. Minimal anterior osteoarthritic changes is seen at C4 and C5. There is anterior osteoarthritis at C1 and C2. No compression fractures are noted. There is n o prevertebral soft tissue swelling. The patient has had cardiac surgery and there is a pacemaker gen erator. The patient is edentulous. There is no limitation of motion or subluxation on flexion or exte nsion. XR/XR cervical spine fl/ex [id number] Impression: 1. Negative for subluxation or limitation of motion on flexion or extension. 2. 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 3. Degenerative disc narrowing at C5-C6..
== END 2020-06-26 16:21 | disposition home or self-care (01) ==
PROVIDERS: PCP Family Medicine; Visit Provider Specialist
DX: M47.812 Spondylosis without myelopathy or radiculopathy, cervical region (principal)
CPT/HCPCS: 72040

== ENCOUNTER → 2020-07-10 09:54 | Outpatient (BNVA) | payer MEDICARE, OTHER, MEDICAID, SELFPAY | PROVIDERS: PCP Family Medicine; Visit Provider Specialist | DX: G24.01 Drug induced subacute dyskinesia (principal); T43.505A Adverse effect of unspecified antipsychotics and neuroleptics, initial encounter; G24.3 Spasmodic torticollis; G37.9 Demyelinating disease of central nervous system, unspecified; Z87.891 Personal history of nicotine dependence | CPT/HCPCS: 99213; 99214 ==

== ENCOUNTER → 2020-08-23 13:29 | Outpatient (BNVA) | payer MEDICARE, OTHER, MEDICAID, SELFPAY | PROVIDERS: PCP Family Medicine; Visit Provider Specialist | DX: G24.3 Spasmodic torticollis (principal); G24.01 Drug induced subacute dyskinesia; T43.505A Adverse effect of unspecified antipsychotics and neuroleptics, initial encounter; G37.9 Demyelinating disease of central nervous system, unspecified; Z87.891 Personal history of nicotine dependence | CPT/HCPCS: 64616; J0585 ==

== ENCOUNTER → 2020-11-15 09:53 | Outpatient (BNVA) | payer MEDICARE, MEDICAID, SELFPAY | PROVIDERS: PCP Family Medicine; Visit Provider Specialist | DX: G24.3 Spasmodic torticollis (principal); G24.01 Drug induced subacute dyskinesia; T43.505D Adverse effect of unspecified antipsychotics and neuroleptics, subsequent encounter; G37.9 Demyelinating disease of central nervous system, unspecified; Z87.891 Personal history of nicotine dependence | CPT/HCPCS: 64616; 99214; J0585 ==

== ENCOUNTER → 2020-12-17 14:35 | Outpatient (BNVA) | payer MEDICARE, MEDICAID, SELFPAY | PROVIDERS: PCP Family Medicine; Visit Provider Specialist | DX: G24.3 Spasmodic torticollis (principal); G24.01 Drug induced subacute dyskinesia; T43.505A Adverse effect of unspecified antipsychotics and neuroleptics, initial encounter; G25.81 Restless legs syndrome | CPT/HCPCS: 99213; 99214 ==

== ENCOUNTER → 2021-02-07 10:32 | Outpatient (BNVA) | payer MEDICARE, MEDICAID, SELFPAY | PROVIDERS: PCP Family Medicine; Visit Provider Specialist | DX: G24.3 Spasmodic torticollis (principal); G24.01 Drug induced subacute dyskinesia; T43.505A Adverse effect of unspecified antipsychotics and neuroleptics, initial encounter; R26.81 Unsteadiness on feet; Z87.891 Personal history of nicotine dependence | CPT/HCPCS: 64616; 99213; J0585 ==

== ENCOUNTER → 2021-06-13 10:21 | Outpatient (BNVA) | payer MEDICARE, MEDICAID, SELFPAY | PROVIDERS: PCP Family Medicine; Visit Provider Specialist | DX: G24.3 Spasmodic torticollis (principal) | CPT/HCPCS: 64616; J0585 ==

== ENCOUNTER → 2021-09-05 12:52 | Outpatient (BNVA) | payer MEDICARE, MEDICAID, SELFPAY | PROVIDERS: PCP Family Medicine; Visit Provider Specialist | DX: G24.3 Spasmodic torticollis (principal); G24.01 Drug induced subacute dyskinesia; T43.505A Adverse effect of unspecified antipsychotics and neuroleptics, initial encounter; Z95.3 Presence of xenogenic heart valve; R06.02 Shortness of breath | CPT/HCPCS: 64616; 99213; 99214; J0585 ==

== ENCOUNTER 2021-09-18 06:00 | Outpatient (RCR) | payer MEDICARE, MEDICAID, SELFPAY | END 2021-09-24 23:59 | disposition home or self-care (01) | LOC: GPT 06:00 | PROVIDERS: PCP Family Medicine; Referring Provider Specialist; Visit Provider Specialist | DX: G24.3 Spasmodic torticollis (principal) | CPT/HCPCS: 97110; 97112; 97140; 97162; G0283 ==

== ENCOUNTER 2021-09-23 13:22 | Emergency (ER) | payer MEDICARE, MEDICAID, SELFPAY ==
--- NOTE | 2021-09-23 13:43 | XRR_ITS ---
PROCEDURE INFORMATION: Exam: XR Pelvis Exam date and time: 09/23/2021 1:51 PM Age: 76 years old Clinical indication: Injury or trauma; Fall; Blunt trauma (contusions or hematomas); Bilateral; Pelvic region TECHNIQUE: Imaging protocol: XR pelvis. Views: 1 or 2 view. COMPARISON: CT abdomen pelvis con [id number] 12/13/2019 4:52 PM FINDINGS: Bones/joints: No acute fracture. Soft tissues: Unremarkable. XR/XR pelvis 1-2V* [id number] IMPRESSION: No acute findings.
[2021-09-23 13:46] VITALS: BP 117/60; PULSE 86; RESP 20; TEMP 36.6; O2SAT 93; BMI 28.7
--- NOTE | 2021-09-23 13:52 | ED_ITS ---
HPI - SOB/Dyspnea General: Chief Complaint: Fall Stated Complaint: FALL Time Seen by Provider: 09/23/21 13:25 History of Present Illness: HPI Narrative: Patient comes in with concerns for her blood pressure and a fall. States that she went to get up out of her chair and lost her balance and fell to the ground landing on her sacrum. States that she did not land hard and is not having any pain. She denies any new pain or symptoms. She is moving all 4 extremities without complication. She denies cold symptoms including no fever, vomiting, nausea, diarrhea. Denies any abdominal pain or chest pain. She states that she is concerned because her blood pressure has been all over the place today. Upon evaluation here the patient's blood pressure is 117/60. Associated symptoms: Deny abdominal pain, chest pain, fever(s), nausea, palpitations, polyuria or vomiting Review of Systems Const: Denies: fever(s) or body aches Eyes: Denies: change in vision or blurry vision ENMT: Denies: throat pain or odynophagia Card: Denies: chest pain or palpitations Resp: Denies: dyspnea or productive cough GI: Denies: abdominal pain, nausea or vomiting : Denies: flank pain or dysuria Musc: Denies: neck pain or back pain Skin/Breast: Denies: rash or pruritus Neuro: Denies: headache(s) or numbness in extremities Psych: Denies: anxiety or change in appetite Endo: Denies: polyuria or excessive sweating PFSH ED PFSH: Medical History Aortic stenosis, severe Arthropathy, unspecified Backache Bipolar affective disorder Chronic obstructive pulmonary disease, unspecified DNR (do not resuscitate) HTN (hypertension) Hypercholesterolemia Irritable bowel syndrome Labyrinthitis Peripheral vertigo RLS (restless legs syndrome) Sleep apnea Surgical History H/O eye surgery H/O foot surgery H/O oral surgery History of abdominal hysterectomy History of appendectomy Hx of cholecystectomy Status post aortic valve replacement with bioprosthetic valve Family History Other Hypertension Social History Smoking and tobacco status: never smoked Quit status (tobacco): has quit using tobacco Year quit tobacco: 1979 - ciggs x 6 Years Second hand smoke exposure: No Alcohol intake: never Caregiver/support person: Yes Lives independently: Yes Household members: none Housing: House Marital status: / Current occupational status: retired and disabled Pets and animals: Yes Pets & animals: dog(s) History of recent travel: No Current gender identity: Female Physical Exam Const: COMMON NORMALS: no acute distress, patient oriented x3, healthy appearing and alert HENMT: COMMON NORMALS: normocephalic and atraumatic HEAD & SCALP: normocephalic and atraumatic Eye: COMMON NORMALS: Equal, round and reactive pupils present and EOMs intact bilaterally PUPIL: Yes Equal, round and reactive pupils present Neck/C-Spine: COMMON NORMALS: full ROM and supple Resp: COMMON NORMALS: normal respiratory effort, No retractions and No use of accessory muscles Cardio: COMMON NORMALS: regular rate and regular rhythm RATE: regular rate RHYTHM: regular rhythm GI: COMMON NORMALS: Normal to inspection, nondistended, normoactive bowel sounds present, Soft to palpation and non-tender PALPATION: Yes Soft to palpation Back/Pelvis: COMMON NORMALS: thoracic and lumbar spine normal to inspection and no thoracic nor lumbar tenderness Extremity: COMMON NORMALS: normal to inspection and full ROM Neuro: COMMON NORMALS: patient oriented x3 SENSORIUM/ORIENTATION: Yes alert Psych: COMMON NORMALS: mental status grossly normal and cooperative Skin: COMMON NORMALS: no rashes or lesions noted and no wounds GENERAL SKIN EXAM: no rashes or lesions noted Course Vital Signs: Vital signs: Vital Signs Temperature 97.9 F 09/23/21 13:46 Pulse Rate 106 H 09/23/21 17:03 Respiratory Rate 20 H 09/23/21 13:46 Blood Pressure 142/58 09/23/21 17:03 Pulse Oximetry 94 09/23/21 17:03 MDM - SOB/Dyspnea Medical Decision Making Patient comes in with concerns for her blood pressure and a fall. States that she went to get up out of her chair and lost her balance and fell to the ground landing on her sacrum. States that she did not land hard and is not having any pain. She denies any new pain or symptoms. She is moving all 4 extremities without complication. She denies cold symptoms including no fever, vomiting, nausea, diarrhea. Denies any abdominal pain or chest pain. She states that she is concerned because her blood pressure has been all over the place today. Upon evaluation here the patient's blood pressure is 117/60. Will check labs, pelvis x-ray, and reassess. On reassessment I talked to the patient about the test results. Will discharge home at this time with precautions to return for worsening or changing symptoms. Lab Data : 09/23/21 14:10 09/23/21 14:10 Labs/Radiology: Radiology Impressions Pelvis X-Ray 09/23/21 13:43 IMPRESSION: No acute findings. Laboratory Results WBC 8.0 10^3/uL (4.0-10.0) 09/23/21 14:10 RBC 4.29 10^6/uL (4.1-5.3) 09/23/21 14:10 Hgb 13.3 g/dL (11.5-15.3) 09/23/21 14:10 Hct 40.4 % (37.0-47.0) 09/23/21 14:10 MCV 94.2 fl (81-99) 09/23/21 14:10 MCH 31.0 pg (28.0-34.0) 09/23/21 14:10 MCHC 32.9 g/dL (30.0-36.0) 09/23/21 14:10 RDW 13.1 % (12.1-15.1) 09/23/21 14:10 Plt Count 162 10^3/cmm (130-400) 09/23/21 14:10 MPV 10.7 fL (7.4-10.4) H 09/23/21 14:10 Neut % (Auto) 71.9 % 09/23/21 14:10 Lymph % (Auto) 11.7 % 09/23/21 14:10 [place] % (Auto) 14.1 % 09/23/21 14:10 Eos % (Auto) 1.4 % 09/23/21 14:10 Baso % (Auto) 0.5 % 09/23/21 14:10 Neut # (Auto) 5.72 10^3/uL (1.8-7.7) 09/23/21 14:10 Lymph # (Auto) 0.9 10^3/uL (0.8-4.8) 09/23/21 14:10 [place] # (Auto) 1.1 10^3/uL (0.2-0.9) H 09/23/21 14:10 Eos # (Auto) 0.1 10^3/uL (0.0-0.8) 09/23/21 14:10 Baso # (Auto) 0.0 10^3/uL (0.0-0.1) 09/23/21 14:10 Nucleated RBC % (auto) 0 % 09/23/21 14:10 Nucleated RBCs # 0.0 /100WBC 09/23/21 14:10 Sodium 136 mmol/L (136-145) 09/23/21 14:10 Potassium 4.6 mmol/L (3.5-5.1) 09/23/21 14:10 Chloride 99 mmol/L (98-107) 09/23/21 14:10 Carbon Dioxide 29 mmol/L (22-29) 09/23/21 14:10 Anion Gap 12.6 (5-19) 09/23/21 14:10 BUN 28 mg/dL (8-23) H 09/23/21 14:10 Creatinine 1.6 mg/dL (0.5-0.9) H 09/23/21 14:10 GFR Calculation Not Reportable 09/23/21 14:10 Glucose 91 mg/dL (65-115) 09/23/21 14:10 Calculated Osmolality 287 mOsm/kg (285-295) 09/23/21 14:10 Calcium 8.9 mg/dL (8.5-10.5) 09/23/21 14:10 Discharge Plan Discharge Patient Disposition: Home Clinical Impression: General medical examination Condition: Stable Prescriptions: No Action omeprazole 20 mg capsule,delayed release(DR/EC) 20 mg PO DAILY 0RF onabotulinumtoxinA 100 unit recon soln SUBCUT 0RF [place] 6 mg tablet 6 mg PO BID 0RF diclofenac sodium 3 % gel 1 applic topical BID 0RF valsartan-hydrochlorothiazide 160-12.5 mg tablet 1 tab PO DAILY Qty: 90 4RF amlodipine 10 mg tablet 10 mg PO QAM Qty: 90 4RF tizanidine 2 mg capsule 2 mg PO TID PRN0RF albuterol sulfate 2.5 mg /3 mL (0.083 %) solution for nebulization 2.5 mg inhalation Q6H 0RF azelastine 137 mcg (0.1 %) aerosol,spray 1 spray intranasal BID Qty: 30 3RF Rx Instructions: administer into each nostril ropinirole 0.25 mg tablet See Rx Instructions .ROUTE .COMPLEX Qty: 180 3RF Dose Instruction: TAKE 1 TABLET BY MOUTH TWICE DAILY Rx Instructions: TAKE 1 TABLET BY MOUTH TWICE DAILY aripiprazole 2 mg tablet 2 mg PO DAILY Qty: 30 0RF levocetirizine 5 mg tablet 5 mg PO DAILY Qty: 30 6RF Aspir-81 81 mg Tablet,Delayed Release (Dr/Ec) 81 mg PO DAILY 0RF Hold Instructions: Resume on 12/23/19. Rx Instructions: medication on pts discharge paperwork from long-term Discharge Orders: Discharge ED (Routine); Ordered 09/23/21 Ordered By: Zen Vallejo Referrals: Mandeep Madrigal MD [Primary Care Provider] - Coding Level of Care Code ED Associate Professor Of Theatre for Chg Fwd Exam Comprehensive
[2021-09-23 13:56] VITALS: BP 117/60; PULSE 87; O2SAT 93
[2021-09-23 14:19] LABS: Basophils % 0.5 %; Eosinophils # 0.1 10^3/uL (0.0-0.8); Eosinophils % 1.4 %; Hematocrit 40.4 % (37.0-47.0); Hemoglobin 13.3 g/dL (11.5-15.3); Lymphocytes # 0.9 10^3/uL (0.8-4.8); Lymphocytes % 11.7 %; Mean Corpuscular HGB Conc 32.9 g/dL (30.0-36.0); Mean Corpuscular Volume 94.2 fl (81-99); Mean Platelet Volume 10.7 fL (7.4-10.4); Monocytes # 1.1 10^3/uL (0.2-0.9); Monocytes % 14.1 %; Neutrophils # 5.72 10^3/uL (1.8-7.7); Neutrophils % 71.9 %; Nucleated Red Blood Cells % 0 %; Platelet Count 162 10^3/cmm (130-400); Red Blood Count 4.29 10^6/uL (4.1-5.3); Red Cell Distribution Width 13.1 % (12.1-15.1)
[2021-09-23 14:40] LABS: Anion Gap 12.6 (5-19); Blood Urea Nitrogen 28 mg/dL (8-23); Calcium 8.9 mg/dL (8.5-10.5); Carbon Dioxide 29 mmol/L (22-29); Chloride 99 mmol/L (98-107); Glucose 91 mg/dL (65-115); Osmolality Calculated 287 mOsm/kg (285-295); Potassium 4.6 mmol/L (3.5-5.1); Sodium 136 mmol/L (136-145)
[2021-09-23 15:12] VITALS: BP 123/47; PULSE 85; O2SAT 94
[2021-09-23 17:03] VITALS: BP 142/58; PULSE 106; O2SAT 94
== END 2021-09-23 17:00 | disposition home or self-care (01) ==
PROVIDERS: Emergency Provider Emergency Medicine; PCP Family Medicine
DX: Z00.00 Encounter for general adult medical examination without abnormal findings (principal); I10 Essential (primary) hypertension
CPT/HCPCS: 72170; 80048; 85025; 99283

== ENCOUNTER 2021-09-25 06:00 | Outpatient (RCR) | payer MEDICARE, MEDICAID, SELFPAY | END 2021-10-24 23:59 | disposition home or self-care (01) | LOC: GPT 06:00 | PROVIDERS: PCP Family Medicine; Referring Provider Specialist; Visit Provider Specialist | DX: G24.3 Spasmodic torticollis (principal) | CPT/HCPCS: 97110; 97112; 97140; 97530; G0283 ==

== ENCOUNTER 2021-10-25 06:00 | Outpatient (RCR) | payer MEDICARE, MEDICAID, SELFPAY | END 2021-11-24 23:59 | disposition home or self-care (01) | LOC: GPT 06:00 | PROVIDERS: PCP Family Medicine; Referring Provider Specialist; Visit Provider Specialist | DX: G24.3 Spasmodic torticollis (principal) | CPT/HCPCS: 97110; 97112; 97140 ==

== ENCOUNTER 2021-12-24 19:37 | Emergency (ER) | payer MEDICARE, MEDICAID, SELFPAY ==
[2021-12-24 19:45] VITALS: BP 118/47; PULSE 82; RESP 20; TEMP 36.7; O2SAT 97; BMI 27.1
--- NOTE | 2021-12-24 19:50 | ECG_ITS ---
[facility] Test Date: 2021-12-24 Pat Name: Nancy Brasher Department: Room: Gender: Female Emergency Medical Service Manager: : 1945 Requested By: Humble Dowell Order Number: [id number] Gregory MD: Caesar Robertson M.D. Measurements Intervals [place] Rate: 80 P: 60 [place]: 156 QRS: 5 QRSD: 89 T: 81 QT: 396 QTc: 459 Interpretive Statements SINUS RHYTHM WITH SINUS ARRHYTHMIA NONSPECIFIC T-WAVE ABNORMALITY Compared to ECG 12/13/2019 18:44:39 T-wave abnormality now present Atrial abnormality no longer present ST (T wave) deviation no longer present Electronically Signed On 12-24-2021 23:41:22 CDT by Caesar Robertson M.D. [id number] f
--- NOTE | 2021-12-24 19:58 | XRR_ITS ---
PROCEDURE INFORMATION: Exam: XR Chest Exam date and time: 12/24/2021 8:04 PM Age: 76 years old Clinical indication: Angina; Additional info: Chest pain TECHNIQUE: Imaging protocol: Radiologic exam of the chest. Views: 1 view. COMPARISON: CR XR chest 1V portable [id number] 12/13/2019 3:41 PM FINDINGS: Lungs: Lungs are clear bilaterally. Pleural spaces: No pleural effusion. No pneumothorax. Heart/Mediastinum: The cardiac silhouette is mildly enlarged. Mediastinal contours are unremarkable. Bones/joints: Stable poststernotomy changes in the chest. Degenerative changes in the spine and shoulders. XR/XR chest 1V portable [id number] IMPRESSION: 1. No acute cardiopulmonary process. 2. Incidental/nonacute findings are listed in the report.
--- NOTE | 2021-12-24 19:58 | W.ED.FALL ---
HPI - Fall General: Chief Complaint: Fall Stated Complaint: FALL Time Seen by Provider: 12/24/21 19:45 [facility] ED PFSH: Medical History Aortic stenosis, severe Arthropathy, unspecified Backache Bipolar affective disorder Chronic obstructive pulmonary disease, unspecified DNR (do not resuscitate) HTN (hypertension) Hypercholesterolemia Irritable bowel syndrome Labyrinthitis Peripheral vertigo RLS (restless legs syndrome) Sleep apnea Surgical History H/O eye surgery H/O foot surgery H/O oral surgery History of abdominal hysterectomy History of appendectomy Hx of cholecystectomy Status post aortic valve replacement with bioprosthetic valve Family History Other Hypertension Social History Smoking and tobacco status: never smoked Quit status (tobacco): has quit using tobacco Year quit tobacco: 1979 - ciggs x 6 Years Second hand smoke exposure: No Alcohol intake: never Caregiver/support person: Yes Lives independently: Yes Household members: none Housing: House Marital status: / Current occupational status: retired and disabled Pets and animals: Yes Pets & animals: dog(s) History of recent travel: No Current gender identity: Female Course Vital Signs: Vital signs: Vital Signs Temperature 98.1 F 12/24/21 19:45 Pulse Rate 82 12/24/21 19:45 Respiratory Rate 20 H 12/24/21 19:45 Blood Pressure 118/47 12/24/21 19:45 Pulse Oximetry 97 12/24/21 19:45 Oxygen Delivery Me thod 12/24/21 19:45 MDM - Fall Lab Data Radiology Impressions Chest X-Ray 12/24/21 19:58 IMPRESSION: 1. No acute cardiopulmonary process. 2. Incidental/nonacute findings are listed in the report. Discharge Plan Discharge Patient Disposition: Home Clinical Impression: Light headedness, Fall Condition: Stable Prescriptions: No Action omeprazole 20 mg capsule,delayed release(DR/EC) 20 mg PO DAILY onabotulinumtoxinA 100 unit recon soln SUBCUT [place] 6 mg tablet 6 mg PO BID diclofenac sodium 3 % gel 1 applic topical BID valsartan-hydrochlorothiazide 160-12.5 mg tablet 1 tab PO DAILY Qty: 90 4RF amlodipine 10 mg tablet 10 mg PO QAM Qty: 90 4RF tizanidine 2 mg capsule 2 mg PO TID PRN albuterol sulfate 2.5 mg /3 mL (0.083 %) solution for nebulization 2.5 mg inhalation Q6H azelastine 137 mcg (0.1 %) aerosol,spray 1 spray intranasal BID Qty: 30 3RF Rx Instructions: administer into each nostril ropinirole 0.25 mg tablet See Rx Instructions .ROUTE .COMPLEX Qty: 180 3RF Dose Instruction: TAKE 1 TABLET BY MOUTH TWICE DAILY Rx Instructions: TAKE 1 TABLET BY MOUTH TWICE DAILY aripiprazole 2 mg tablet 2 mg PO DAILY Qty: 30 0RF levocetirizine 5 mg tablet 5 mg PO DAILY Qty: 30 6RF Aspir-81 81 mg Tablet,Delayed Release (Dr/Ec) 81 mg PO DAILY Hold Instructions: Resume on 12/23/19. Rx Instructions: medication on pts discharge paperwork from group home Referrals: Mandeep Madrigal MD [Primary Care Provider] - Discharge Diet: Advance as tolerated Discharge Activity: Increase activity as tolerated Patient Instructions: Lightheadedness (ED) Activity Restrictions/Additional Instructions: Please come back to the emergency room for any more breakthrough episodes of nearly passing out. Come back if any weakness in your arms, drooling, difficulty speaking, any neurological symptoms, chest pain/shortness of breath/palpitation or any new or concerning issues. Please do not swim, bathe, operate heavy machinery or drive a vehicle unattended. Coding Level of Care Code ED [employer] for 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
--- NOTE | 2021-12-24 19:59 | CTR_ITS ---
PROCEDURE INFORMATION: Exam: CT Head Without Contrast Exam date and time: 12/24/2021 8:10 PM Age: 76 years old Clinical indication: Injury or trauma; Blunt trauma (contusions or hematomas); Patient HX: Fall from standing. C/O dizziness. TECHNIQUE: Imaging protocol: Computed tomography of the head without contrast. Sagittal and coronal reformatted images were created and reviewed. Radiation optimization: All CT scans at this facility use at least one of these dose optimization techniques: automated exposure control; mA and/or kV adjustment per patient size (includes targeted exams where dose is matched to clinical indication); or iterative reconstruction. COMPARISON: MR head wo/w con [id number] 04/02/2020 2:32 PM RADIATION DOSE METRICS: Total DLP (mGy-cm): 1083 FINDINGS: Brain: No acute intracranial hemorrhage. No acute infarct. No intra-axial or extra-axial masses. Blanco-white matter differentiation is preserved. No cerebral edema. No extra-axial fluid collections. No midline shift. No evidence for Chiari 1 malformation. Stable mildly decreased attenuation in the deep white matter, consistent with mild chronic microangiopathic change. Stable mild cerebral volume loss. Cerebral ventricles: No hydrocephalus. Paranasal sinuses: Visualized paranasal sinuses are clear. Mastoid air cells: Unremarkable as visualized. Orbital cavities: Globes and lenses, extraocular muscles, and optic nerves are intact bilaterally. No acute intraorbital abnormality. Bones/joints: No acute fracture. Soft tissues: The extracranial soft tissues are unremarkable. Vasculature: Atherosclerotic changes in the visualized arteries. CT/CT head wo con* [id number] IMPRESSION: 1. No acute abnormality of the brain. 2. Stable mild chronic white matter microangiopathic change. 3. Incidental/nonacute findings are listed in the report.
--- NOTE | 2021-12-24 20:25 | ED_ITS ---
HPI - General Adult General: Chief complaint: Fall Stated complaint: FALL Time Seen by Provider: 12/24/21 19:45 History of Present Illness: 76-year-old female with history of hypertension, COPD, hyperlipidemia, peripheral vertigo who presents the emergency room with concerns of lightheadedness and low blood pressure. Patient tells me that he was feeling very lightheaded about an hour ago after standing up. Patient reports that she fell to the ground. Patient denies any loss of consciousness. Patient has no complaints of pain. Patient reporting hitting her head against the ground. Patient denies any anticoagulation. Has no associate chest pain, shortness breath, focal neurological deficits with the episodes of lightheadedness. Patient denies any room spinning sensation, or gait imbalance. Patient denies any abdominal pain, nausea/vomiting, diarrhea, melena or hemat ochezia. Patient has no complaints. Onset: 1 hr ago Duration:once Location:home Severity:moderate Associated symptoms: Deny chest pain, dyspnea, nausea, rash, palpitations or vomiting Review of Systems Const: Denies: fever(s) or chills Eyes: Denies: change in vision ENMT: Denies: mouth pain Card: Denies: chest pain or palpitations Resp: Denies: dyspnea or non-productive cough GI: Denies: abdominal pain, nausea, vomiting or diarrhea : Denies: dysuria Musc: Denies: extremity pain Skin/Breast: Denies: rash or new lesions Neuro: Reports: other (+light-headedness); Denies: weakness in extremities Psych: Reports: other (Normal mood) Yong/Lymph: Denies: easy bruising PFSH ED PFSH: Medical History Aortic stenosis, severe Arthropathy, unspecified Backache Bipolar affective disorder Chronic obstructive pulmonary disease, unspecified DNR (do not resuscitate) HTN (hypertension) Hypercholesterolemia Irritable bowel syndrome Labyrinthitis Peripheral vertigo RLS (restless legs syndrome) Sleep apnea Surgical History H/O eye surgery H/O foot surgery H/O oral surgery History of abdominal hysterectomy History of appendectomy Hx of cholecystectomy Status post aortic valve replacement with bioprosthetic valve Family History Other Hypertension Social History Smoking and tobacco status: never smoked Quit status (tobacco): has quit using tobacco Year quit tobacco: 1979 - ciggs x 6 Years Second hand smoke exposure: No Alcohol intake: never Caregiver/support person: Yes Lives independently: Yes Household members: none Housing: House Marital status: / Current occupational status: retired and disabled Pets and animals: Yes Pets & animals: dog(s) History of recent travel: No Current gender identity: Female Physical Exam Const: COMMON NORMALS: alert HENMT: COMMON NORMALS: atraumatic HEAD & SCALP: atraumatic MOUTH: moist mucous membranes not abnormal Eye: COMMON NORMALS: EOMs intact bilaterally and conjunctivae normal CONJUNCTIVA: Yes conjunctivae normal Neck/C-Spine: COMMON NORMALS: full ROM and supple Resp: COMMON NORMALS: normal respiratory effort and clear to auscultation bilaterally AUSCULTATION: clear to auscultation bilaterally Cardio: COMMON NORMALS: regular rate RATE: regular rate GI: COMMON NORMALS: Soft to palpation and non-tender PALPATION: Yes Soft to palpation Extremity: COMMON NORMALS: full ROM Neuro: SENSORIUM/ORIENTATION: Yes alert MOTOR EXAM: No Abnormal motor strength present and Other motor observations present (no focal motor deficits) OTHER: Mental status? Awake, alert, and oriented to self, year, month, location, and situation.? Following simple axial and appendicular commands.? Has appropriate fund of knowledge, comprehension, and insight.? Able to recall and understands pertinent aspects of medical history and current treatment status.? ? Language? Speech is fluent without word-finding difficulties.? Intact naming, expression, customer service receptionist, and repetition.? ? Cranial nerves? 2,3,4,6: PERRL, EOMI with no nystagmus. 5: Intact sensation to light touch, symmetric? 7: Smile symmetrical, no facial droop.? 8: Hearing grossly intact.? 9,10: Normal palate movement.? 11: Normal strength in trapezius bilaterally 12: Tongue protrudes midline.? ? Motor examination? Normal bulk & tone. Strength as follows (R/L): Delts (5/5), Biceps (5/5), Triceps (5/5), Wrist ext (5/5), hip flexors (5/5), plantarflexors (5/5), dorsiflexors (5/5). ? Sensation? Light Touch: Grossly intact and equal in upper and lower extremities bilaterally? Romberg: Negative.? Distal joint position sense intact ? Coordination? Hffcfo-lj-pddw-finger movements intact without dysmetria or past-pointing.? Rapid fingertaps: preserved amplitude without decriment.? No tremor, myoclonus or truncal ataxia.? ? Gait/stance? Steady, normal narrow base gait with appropriate arm swing and turning.? Tandem gait without hesitation or loss of balance. Psych: COMMON NORMALS: speech normal SPEECH: Yes normal speech MOOD & AFFECT: Yes euthymic mood Course Vital Signs: Vital signs: Vital Signs Temperature 98.1 F 12/24/21 19:45 Pulse Rate 82 12/24/21 19:45 Respiratory Rate 20 H 12/24/21 19:45 Blood Pressure 118/47 12/24/21 19:45 Pulse Oximetry 97 12/24/21 19:45 Oxygen Delivery Me thod 12/24/21 19:45 MDM - General Adult Medical Decision Making 76-year-old female with history hypertension, COPD, hyperlipidemia who presents the emergency room with concerns of lightheadedness, and low blood pressure. On physical exam, patient is normotensive. Rest of exam in improved. Neuro exam is intact including gait. Patient received IVF. White count 14.1. Patient is afebrile. Patient has creatinine 1.[address] of negative for any acute signs of injuries. Troponin is similar to baseline x 2 today. EKG is nonischemic. Patient has no active complaints of chest pain or shortness of breath. Given presentation, do not suspect ACS or acute dysrhythmia. After IVF , patient reports feeling better. Patient at baseline walks with a cane. Patient is able to get around without any sensation of lightheadedness. Disposition: Discharge. Patient counseled regarding diagnostic impression, treatment plan. Patient given ED strict return precautions to return for cont inuation, worsening, or development of new symptoms. Instructed to f/u w/ PCP regarding symptoms today. Patient verbalized understanding. Lab Data : 12/24/21 21:03 12/24/21 21:03 Radiology Impressions Chest X-Ray 12/24/21 19:58 IMPRESSION: 1. No acute cardiopulmonary process. 2. Incidental/nonacute findings are listed in the report. Head CT 12/24/21 19:59 IMPRESSION: 1. No acute abnormality of the brain. 2. Stable mild chronic white matter microangiopathic change. 3. Incidental/nonacute findings are listed in the report. Laboratory Results WBC 14.1 10^3/uL (4.0-10.0) H 12/24/21 21:03 RBC 4.18 10^6/uL (4.1-5.3) 12/24/21 21:03 Hgb 12.6 g/dL (11.5-15.3) 12/24/21 21:03 Hct 39.2 % (37.0-47.0) 12/24/21 21:03 MCV 93.8 fl (81-99) 12/24/21 21:03 MCH 30.1 pg (28.0-34.0) 12/24/21 21:03 MCHC 32.1 g/dL (30.0-36.0) 12/24/21 21:03 RDW 12.6 % (12.1-15.1) 12/24/21 21:03 Plt Count 197 10^3/cmm (130-400) 12/24/21 21:03 MPV 11.0 fL (7.4-10.4) H 12/24/21 21:03 Neut % (Auto) 69.7 % 12/24/21 21:03 Lymph % (Auto) 16.9 % 12/24/21 21:03 Mccracken % (Auto) 11.1 % 12/24/21 21:03 Eos % (Auto) 1.3 % 12/24/21 21:03 Baso % (Auto) 0.4 % 12/24/21 21:03 Neut # (Auto) 9.84 10^3/uL (1.8-7.7) H 12/24/21 21:03 Lymph # (Auto) 2.4 10^3/uL (0.8-4.8) 12/24/21 21:03 Mccracken # (Auto) 1.6 10^3/uL (0.2-0.9) H 12/24/21 21:03 Eos # (Auto) 0.2 10^3/uL (0.0-0.8) 12/24/21 21:03 Baso # (Auto) 0.1 10^3/uL (0.0-0.1) 12/24/21 21:03 Nucleated RBC % (auto) 0 % 12/24/21 21:03 Nucleated RBCs # 0.0 /100WBC 12/24/21 21:03 Sodium 137 mmol/L (136-145) 12/24/21 21:03 Potassium 3.9 mmol/L (3.5-5.1) 12/24/21 21:03 Chloride 97 mmol/L (98-107) L 12/24/21 21:03 Carbon Dioxide 28 mmol/L (22-29) 12/24/21 21:03 Anion Gap 15.9 (5-19) 12/24/21 21:03 BUN 25 mg/dL (8-23) H 12/24/21 21:03 Creatinine 1.5 mg/dL (0.5-0.9) H 12/24/21 21:03 GFR Calculation Not Reportable 12/24/21 21:03 Glucose 113 mg/dL (65-115) 12/24/21 21:03 Calculated Osmolality 289 mOsm/kg (285-295) 12/24/21 21:03 Calcium 9.1 mg/dL (8.5-10.5) 12/24/21 21:03 Troponin T Baseline 15 ng/L (0-10) H 12/24/21 21:03 Troponin T 120 Minute 15.05 ng/L (0-10) H 12/24/21 22:42 Delta Troponin T 0.05 ABS# (0-10) 12/24/21 22:42 Imaging Data Other Imaging: Radiologist's impression: [address] [address] [address] Scan Report Signed Patient: Nancy Brasher Unit #: [id number] : 1945 Age/Sex: 76 / F ADM Date: 12/24/21 Loc: ER Room/Bed: Attending Dr: Ordering Provider/Ordering MD: Humble Dowell MD Date of Service: 12/24/21 Procedure(s): CT head wo con* [id number] Accession Number(s): [id number] Report Number: [id number] PROCEDURE INFORMATION: Exam: CT Head Without Contrast Exam date and time: 12/24/2021 8:10 PM Age: 76 years old Clinical indication: Injury or trauma; Blunt trauma (contusions or hematomas); Patient HX: Fall from standing. C/O dizziness. TECHNIQUE: Imaging protocol: Computed tomography of the head without contrast. Sagittal and coronal reformatted images were created and reviewed. Radiation optimization: All CT scans at this facility use at least one of these dose optimization techniques: automated exposure control; mA and/or kV adjustment per patient size (includes targeted exams where dose is matched to clinical indication); or iterative reconstruction. COMPARISON: MR head wo/w con [id number] 04/02/2020 2:32 PM RADIATION DOSE METRICS: Total DLP (mGy-cm): 1083 FINDINGS: Brain: No acute intracranial hemorrhage. No acute infarct. No intra-axial or extra-axial masses. Blanco-white matter differentiation is preserved. No cerebral edema. No extra-axial fluid collections. No midline shift. No evidence for Chiari 1 malformation. Stable mildly decreased attenuation in the deep white matter, consistent with mild chronic microangiopathic change. Stable mild cerebral volume loss. Cerebral ventricles: No hydrocephalus. Paranasal sinuses: Visualized paranasal sinuses are clear. Mastoid air cells: Unremarkable as visualized.? Orbital cavities: Globes and lenses, extraocular muscles, and optic nerves are intact bilaterally. No acute intraorbital abnormality. Bones/joints: No acute fracture. Soft tissues: The extracranial soft tissues are unremarkable. Vasculature: Atherosclerotic changes in the visualized arteries. CT/CT head wo con* [id number] IMPRESSION: 1. No acute abnormality of the brain. 2. Stable mild chronic white matter microangiopathic change. 3. Incidental/nonacute findings are listed in the report. ? Dictated By: Alison Delong MD Signed By: Alison Delong MD Signed Date/Time: 12/24/212034 DD/ [address] [address] XRay Report Signed Patient: Nancy Brasher Unit #: [id number] : 1945 Age/Sex: 76 / F ADM Date: 12/24/21 Loc: ER Room/Bed: Attending Dr: Ordering Provider/Ordering MD: Humble Dowell MD Date of Service: 12/24/21 Procedure(s): XR chest 1V portable [id number] Accession Number(s): [id number] Report Number: [id number] PROCEDURE INFORMATION: Exam: XR Chest Exam date and time: 12/24/2021 8:04 PM Age: 76 years old Clinical indication: Angina; Additional info: Chest pain TECHNIQUE: Imaging protocol: Radiologic exam of the chest. Views: 1 view. COMPARISON: CR XR chest 1V portable [id number] 12/13/2019 3:41 PM FINDINGS: Lungs: Lungs are clear bilaterally. Pleural spaces: No pleural effusion. No pneumothorax. Heart/Mediastinum: The cardiac silhouette is mildly enlarged. Mediastinal contours are unremarkable. Bones/joints: Stable poststernotomy changes in the chest. Degenerative changes in the spine and shoulders. XR/XR chest 1V portable [id number] IMPRESSION: 1. No acute cardiopulmonary process. 2. Incidental/nonacute findings are listed in the report. ? Dictated By: Alison Delong MD Signed By: Alison Delong MD Signed Date/Time: 12/24/212019 DD/ 03 Discharge Plan Discharge Patient Disposition: Home Clinical Impression: Light headedness, Fall Condition: Stable Prescriptions: No Action omeprazole 20 mg capsule,delayed release(DR/EC) 20 mg PO DAILY onabotulinumtoxinA 100 unit recon soln SUBCUT Austedo 6 mg tablet 6 mg PO BID diclofenac sodium 3 % gel 1 applic topical BID valsartan-hydrochlorothiazide 160-12.5 mg tablet 1 tab PO DAILY Qty: 90 4RF amlodipine 10 mg tablet 10 mg PO QAM Qty: 90 4RF tizanidine 2 mg capsule 2 mg PO TID PRN albuterol sulfate 2.5 mg /3 mL (0.083 %) solution for nebulization 2.5 mg inhalation Q6H azelastine 137 mcg (0.1 %) aerosol,spray 1 spray intranasal BID Qty: 30 3RF Rx Instructions: administer into each nostril ropinirole 0.25 mg tablet See Rx Instructions .ROUTE .COMPLEX Qty: 180 3RF Dose Instruction: TAKE 1 TABLET BY MOUTH TWICE DAILY Rx Instructions: TAKE 1 TABLET BY MOUTH TWICE DAILY aripiprazole 2 mg tablet 2 mg PO DAILY Qty: 30 0RF levocetirizine 5 mg tablet 5 mg PO DAILY Qty: 30 6RF Aspir-81 81 mg Tablet,Delayed Release (Dr/Ec) 81 mg PO DAILY Hold Instructions: Resume on 12/23/19. Rx Instructions: medication on pts discharge paperwork from [facility] Discharge Orders: Discharge ED (Routine); Ordered 12/24/21 Ordered By: Humble Dowell Referrals: Mandeep Madrigal MD [Primary Care Provider] - Discharge Diet: Advance as tolerated Discharge Activity: Increase activity as tolerated Patient Instructions: Lightheadedness (ED) Activity Restrictions/Additional Instructions: Please come back to the emergency room for any more breakthrough episodes of nearly passing out. Come back if any weakness in your arms, drooling, difficulty speaking, any neurological symptoms, chest pain/shortness of breath/palpitation or any new or concerning issues. Please do not swim, bathe, operate heavy machinery or drive a vehicle unattended. 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
[2021-12-24] MEDS: sodium chloride 0.9% 1,000 ML 999 ML IV (21:22)
[2021-12-24 21:31] LABS: Basophils # 0.1 10^3/uL (0.0-0.1); Basophils % 0.4 %; Eosinophils # 0.2 10^3/uL (0.0-0.8); Eosinophils % 1.3 %; Hematocrit 39.2 % (37.0-47.0); Hemoglobin 12.6 g/dL (11.5-15.3); Lymphocytes # 2.4 10^3/uL (0.8-4.8); Lymphocytes % 16.9 %; Mean Corpuscular HGB Conc 32.1 g/dL (30.0-36.0); Mean Corpuscular Hemoglobin 30.1 pg (28.0-34.0); Mean Corpuscular Volume 93.8 fl (81-99); Monocytes # 1.6 10^3/uL (0.2-0.9); Monocytes % 11.1 %; Neutrophils # 9.84 10^3/uL (1.8-7.7); Neutrophils % 69.7 %; Nucleated Red Blood Cells % 0 %; Platelet Count 197 10^3/cmm (130-400); Red Blood Count 4.18 10^6/uL (4.1-5.3); Red Cell Distribution Width 12.6 % (12.1-15.1); White Blood Count 14.1 10^3/uL (4.0-10.0)
--- NOTE | 2021-12-24 21:51 | ECG_ITS ---
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 Measurements Intervals [place] Rate: 73 P: 65 MI: 157 QRS: 16 QRSD: 92 T: 82 QT: 417 QTc: 461 Interpretive Statements SINUS RHYTHM WITH SINUS ARRHYTHMIA NONSPECIFIC T-WAVE ABNORMALITY Compared to ECG 12/13/2019 18:44:39 T-wave abnormality now present Atrial abnormality no longer present ST (T wave) deviation no longer present Electronically Signed On 12-24-2021 23:41:39 CDT by Caesar Robertson M.D. [id number]
[2021-12-24 21:52] LABS: Anion Gap 15.9 (5-19); Blood Urea Nitrogen 25 mg/dL (8-23); Calcium 9.1 mg/dL (8.5-10.5); Carbon Dioxide 28 mmol/L (22-29); Chloride 97 mmol/L (98-107); Glucose 113 mg/dL (65-115); Osmolality Calculated 289 mOsm/kg (285-295); Potassium 3.9 mmol/L (3.5-5.1); Sodium 137 mmol/L (136-145)
[2021-12-24 22:07] LABS: Troponin(5th) Baseline 15 ng/L (0-10)
[2021-12-24 23:26] LABS: Troponin 5 2HR 13.64 ng/L (0-10); Troponin 5 2HR Delta -1.36 ABS# (0-10)
[2021-12-24 23:45] VITALS: BP 142/52; PULSE 76; RESP 18; O2SAT 96
[2021-12-25 01:16] VITALS: BP 139/51; PULSE 74; RESP 18; TEMP 36.7; O2SAT 96
== END 2021-12-25 01:18 | disposition home or self-care (01) ==
PROVIDERS: Emergency Provider Emergency Medicine; PCP Family Medicine
DX: R42 Dizziness and giddiness (principal); Z79.82 Long term (current) use of aspirin; I10 Essential (primary) hypertension; Z87.891 Personal history of nicotine dependence; J44.9 Chronic obstructive pulmonary disease, unspecified; E78.5 Hyperlipidemia, unspecified
CPT/HCPCS: 36415; 70450; 71045; 80048; 84484; 85025; 93005; 96360; 99285; J7030

== ENCOUNTER → 2021-12-26 09:04 | Outpatient (BNVA) | payer MEDICARE, MEDICAID, SELFPAY | PROVIDERS: PCP Family Medicine; Visit Provider Specialist | DX: R13.10 Dysphagia, unspecified; T17.908A Unspecified foreign body in respiratory tract, part unspecified causing other injury, initial encounter; W19.XXXA Unspecified fall, initial encounter; R26.89 Other abnormalities of gait and mobility; Z71.89 Other specified counseling; G24.3 Spasmodic torticollis | CPT/HCPCS: 64616; 99214; J0585 ==

== ENCOUNTER → 2022-02-03 13:17 | Outpatient (BNVA) | payer MEDICARE, MEDICAID, SELFPAY | PROVIDERS: PCP Family Medicine; Visit Provider Podiatrist Foot & Ankle Surgery | DX: G57.61 Lesion of plantar nerve, right lower limb (principal) | CPT/HCPCS: 64455; 73630; 99203; 99204 ==

== ENCOUNTER → 2022-02-20 13:37 | Outpatient (BNVA) | payer MEDICARE, MEDICAID, SELFPAY | PROVIDERS: PCP Family Medicine; Visit Provider Internal Medicine Pulmonary Disease | DX: R06.02 Shortness of breath (principal); R09.82 Postnasal drip; J98.4 Other disorders of lung; J31.0 Chronic rhinitis; J32.9 Chronic sinusitis, unspecified; Z95.3 Presence of xenogenic heart valve; R53.81 Other malaise; R05.3 Chronic cough; G24.9 Dystonia, unspecified; I69.398 Other sequelae of cerebral infarction; Z87.891 Personal history of nicotine dependence | CPT/HCPCS: 99214 ==

== ENCOUNTER → 2022-03-12 14:53 | Outpatient (BNVA) | payer MEDICARE, MEDICAID, SELFPAY | PROVIDERS: PCP Family Medicine; Visit Provider Podiatrist Foot & Ankle Surgery | DX: G57.63 Lesion of plantar nerve, bilateral lower limbs (principal) | CPT/HCPCS: 64455; J1100; J3301; J3490 ==

== ENCOUNTER → 2022-03-27 09:30 | Outpatient (BNVA) | payer MEDICARE, MEDICAID, SELFPAY | PROVIDERS: PCP Family Medicine; Visit Provider Specialist | DX: G24.3 Spasmodic torticollis (principal); G37.9 Demyelinating disease of central nervous system, unspecified; G24.01 Drug induced subacute dyskinesia; T43.505A Adverse effect of unspecified antipsychotics and neuroleptics, initial encounter; Z71.89 Other specified counseling | CPT/HCPCS: 64616; 99212; J0585 ==

== ENCOUNTER 2022-04-01 06:00 | Outpatient (RCR) | payer MEDICARE, MEDICAID, SELFPAY | END 2022-04-26 23:59 | disposition home or self-care (01) | LOC: GPT 06:00 | PROVIDERS: PCP Family Medicine; Visit Provider Internal Medicine Pulmonary Disease | DX: R53.1 Weakness (principal); J44.9 Chronic obstructive pulmonary disease, unspecified | CPT/HCPCS: 97110; 97112; 97162 ==

== ENCOUNTER 2022-04-27 06:00 | Outpatient (RCR) | payer MEDICARE, MEDICAID, SELFPAY | END 2022-05-08 15:24 | disposition home or self-care (01) | LOC: GPT 06:00 | PROVIDERS: PCP Family Medicine; Visit Provider Internal Medicine Pulmonary Disease | DX: R53.1 Weakness (principal); J44.9 Chronic obstructive pulmonary disease, unspecified | CPT/HCPCS: 97110; 97112; 97530 ==

== ENCOUNTER 2022-05-12 12:41 | Outpatient (CLI) | payer MEDICARE, MEDICAID, SELFPAY ==
--- NOTE | 2022-05-12 12:53 | MM_ITS ---
WS: [id number] BILATERAL 2D DIGITAL SCREENING MAMMOGRAPHY WITH CAD CLINICAL INFORMATION: SCREENING HISTORY: Screening mammogram. No current complaints. COMPARISON: 2020 TECHNIQUE: Bilateral CC and MLO views. FINDINGS: Scattered fibroglandular densities bilaterally. No suspicious focal mass, asymmetry, calcifications, or architectural distortion. No evidence of malignancy. Vascular calcification. Incidental benign will cifications unchanged. Biopsy marker RIGHT breast. MM/[place] [id number] IMPRESSION: BI-RADS: 2-Benign FOLLOW UP: 1 Year Follow-up Recommend return to annual screening mammography.
--- NOTE | 2022-05-12 13:00 | XR_ITS ---
WS: [id number] SCREENING DEXA SCAN MYR CLINICAL INFORMATION: POSTMENOPAUSAL COMPARISON: None. FINDINGS: The L1-L4 bone mineral density measures 1.182 g/cm2. This corresponds to a T score score of 0.0 and Z score of 1.9. Left femoral neck bone mineral density measures 0.836 g/cm2. This corresponds to a T score of -1.4 an d Z score of 0.5. Right femoral neck bone mineral density measures 0.858 g/cm2. This corresponds to a T score -1.2of an d Z score of 0.6. Mean femoral neck bone mineral density measures 0.847 g/cm2. This corresponds to a T score of -1.3 an d Z score of 0.5. XR/XR DEXA axial skeleton* [id number] IMPRESSION: Normal bone mineralization lumbar spine. Osteopenia femoral necks. Patient's FRAX calculated 10 year probability for major osteoporotic fracture i s 10.8 % and osteoporotic hip fracture is 2.1%.
== END 2022-05-12 12:42 | disposition home or self-care (01) ==
PROVIDERS: PCP Family Medicine; Visit Provider Nurse Practitioner Family
DX: Z12.31 Encounter for screening mammogram for malignant neoplasm of breast (principal); Z78.0 Asymptomatic menopausal state; M85.88 Other specified disorders of bone density and structure, other site
CPT/HCPCS: 77067; 77080

== ENCOUNTER → 2022-06-11 13:17 | Outpatient (BNVA) | payer MEDICARE, MEDICAID, SELFPAY | PROVIDERS: PCP Family Medicine; Visit Provider Podiatrist Foot & Ankle Surgery | DX: G57.61 Lesion of plantar nerve, right lower limb (principal) | CPT/HCPCS: 64455 ==

== ENCOUNTER → 2022-06-16 10:04 | Outpatient (BNVA) | payer MEDICARE, MEDICAID, SELFPAY | PROVIDERS: PCP Family Medicine; Visit Provider Internal Medicine Cardiovascular Disease | DX: Z95.2 Presence of prosthetic heart valve (principal); G47.30 Sleep apnea, unspecified; R26.9 Unspecified abnormalities of gait and mobility; F31.9 Bipolar disorder, unspecified; J44.9 Chronic obstructive pulmonary disease, unspecified; Z86.73 Personal history of transient ischemic attack (TIA), and cerebral infarction without residual deficits; Z87.891 Personal history of nicotine dependence | CPT/HCPCS: 99214 ==

== ENCOUNTER → 2022-06-27 08:35 | Outpatient (BNVA) | payer MEDICARE, MEDICAID, SELFPAY | PROVIDERS: PCP Family Medicine; Referring Provider Specialist; Visit Provider Specialist | DX: G24.3 Spasmodic torticollis (principal); G24.01 Drug induced subacute dyskinesia; T43.505A Adverse effect of unspecified antipsychotics and neuroleptics, initial encounter; G37.9 Demyelinating disease of central nervous system, unspecified | CPT/HCPCS: 64616; J0585 ==

== ENCOUNTER 2022-07-14 13:00 | Outpatient (CLI) | payer MEDICARE, MEDICAID, SELFPAY ==
--- NOTE | 2022-07-14 13:30 | USCV_ITS ---
Nancy Brasher Age: 77 Gender: F : 1945 Exam Date: 07/14/2022 13:39 Ordering Phys: Zarina Pride MD ([email or web address]) Technologist: Jeff Fairchild Exam Location: [facility] [place] Indication: AVR BP: 124 / 59 HR: 70 Rhythm: Sinus Technical Quality: Adequate MEASUREMENTS (Male / Female) Normal Values 2D ECHO LV Diastolic Diameter PLAX 3.6 cm 4.2 - 5.9 / 3.9 - 5.3 cm LV Systolic Diameter PLAX 2.3 cm IVS Diastolic Thickness 0.8 cm 0.6 - 1.0 / 0.6 - 0.9 cm IVS Systolic Thickness 1.5 cm LVPW Diastolic Thickness 1.0 cm 0.6 - 1.0 / 0.6 - 0.9 cm LVPW Systolic Thickness 1.3 cm LVOT Diameter 1.6 cm LV Ejection Fraction 2D Teich 65.9 % LV Ejection Fraction MOD 2C 77.1 % LV Ejection Fraction 2C AL 82.1 % LA Diameter 3.1 cm LA Width 3.3 cm LA Height 4.5 cm RA Width 3.2 cm RA Height 3.7 cm Aorta at Sinotubular Diameter 1.3 cm IVC Diameter 1.5 cm M-MODE Aortic Annulus Diameter 2.3 cm LA Ao Ratio MM 1.5 MV E Point Septal Separation 0.6 cm DOPPLER AV Peak Velocity 280.3 cm/s LVOT Peak Velocity 143.3 cm/s AV Area Cont Eq vti 1.2 cm squared AV Area Cont Eq pk 1.1 cm squared MV Peak Velocity 172.0 cm/s MV Area PHT 3.9 cm squared Mitral E to A Ratio 0.9 MV E' Velocity 62.5 cm/s Mitral E to MV E' Ratio 17.2 Mitral E to LV E' Lateral Ratio 13.9 Mitral E to LV E' Septal Ratio 22.5 TR Peak Velocity 310.8 cm/s TR Peak Gradient 38.6 mmHg TR Mean Velocity 219.8 cm/s TR Mean Gradient 21.6 mmHg TR Velocity Time Integral 74.3 cm Right Atrial Pressure 3.0 mmHg Pulmonary Artery Systolic Pressu 41.6 mmHg PV Peak Velocity 114.3 cm/s RV Acceleration Time 0.1 s RV Ejection Time 0.3 s RV AcT/ET 0.5 FINDINGS Left Ventricle Normal left ventricular size and systolic function, EF 78 %. Moderate left ventricular hypertrophy. No regional wall motion abnormalities. Grade I/IV diastolic dysfunction (abnormal relaxation filling pattern), normal to mildly elevated filling pressures. Right Ventricle The right ventricle is normal in size and function. Right Atrium The right atrium is normal in size. Left Atrium Mildly increased left atrial size. Mitral Valve Thickened mitral valve. Moderate mitral annular calcification. Aortic Valve The bioprosthetic valve appears to be well-seated. Peak velocity across the aortic valve was a 2.82 m/s with a peak gradient of 32 and a mean gradient of 17 mmHg. The valve area calculated to be 1.22 cm squared Tricuspid Valve Trace to mild tricuspid valve regurgitation. Estimated pulmonary artery peak systolic pressure 42 mmHg Pulmonic Valve Mild pulmonary valve regurgitation. Pericardium No pericardial effusion. Aorta Normal ascending aorta dimension. IVC Normal inferior vena cava. CONCLUSIONS 1. Features of moderate stenosis of the bioprosthetic valve with aortic position, calculated valve area 1.22 cm squared 2. Concentric, moderate left ventricular hypertrophy. 3. Normal LV size and ejection fraction of 78%. 4. Grade 1 left-ventricular Diafer dysfunction. 5. Mildly increased left atrial size. 6.Trace to mild tricuspid valve regurgitation. Estimated pulmonary artery peak systolic pressure 42 mmHg. 7.Thickened mitral valve. Moderate mitral annular calcification. There is no pericardial effusion. There are no intracardiac masses. Compared to the study from 02/27/2020, there is development of of bioprosthetic aortic valve stenosis. Dr Zarina Pride MD [facility] (Electronically Signed) Final Date: 15 July 2022 23:04 S
== END 2022-07-14 13:01 | disposition home or self-care (01) ==
LOC: RAD 13:07
PROVIDERS: PCP Family Medicine; Visit Provider Internal Medicine Cardiovascular Disease
DX: R06.09 Other forms of dyspnea (principal); I70.0 Atherosclerosis of aorta; I51.7 Cardiomegaly
CPT/HCPCS: 93306

== ENCOUNTER 2022-07-30 12:15 | Outpatient (CLI) | payer MEDICARE, MEDICAID, SELFPAY | END 2022-07-30 12:16 | disposition home or self-care (01) | LOC: SLEEP 07-31 13:04 | PROVIDERS: PCP Family Medicine; Visit Provider Family Medicine | DX: G47.10 Hypersomnia, unspecified (principal) | CPT/HCPCS: G0399 ==

== ENCOUNTER → 2022-09-08 13:01 | Outpatient (BNVA) | payer MEDICARE, MEDICAID, SELFPAY | PROVIDERS: PCP Family Medicine; Visit Provider Podiatrist Foot & Ankle Surgery | DX: G57.61 Lesion of plantar nerve, right lower limb (principal) | CPT/HCPCS: 99213 ==

== ENCOUNTER → 2022-09-25 08:05 | Outpatient (BNVA) | payer MEDICARE, MEDICAID, SELFPAY | PROVIDERS: PCP Family Medicine; Visit Provider Specialist | DX: G24.3 Spasmodic torticollis (principal); G24.01 Drug induced subacute dyskinesia; T43.505A Adverse effect of unspecified antipsychotics and neuroleptics, initial encounter; G37.9 Demyelinating disease of central nervous system, unspecified; R26.89 Other abnormalities of gait and mobility; G47.30 Sleep apnea, unspecified | CPT/HCPCS: 64616; J0585 ==

== ENCOUNTER → 2022-10-24 08:29 | Outpatient (BNVA) | payer MEDICARE, MEDICAID, SELFPAY | PROVIDERS: PCP Family Medicine; Referring Provider Family Medicine; Visit Provider Otolaryngology | DX: R09.81 Nasal congestion (principal); R13.10 Dysphagia, unspecified | CPT/HCPCS: 99203 ==

== ENCOUNTER 2022-11-12 09:58 | Outpatient (CLI) | payer MEDICARE, MEDICAID, SELFPAY ==
--- NOTE | 2022-11-12 10:00 | FL_ITS ---
WS: [id number] Exam: FL barium swallow modifd [id number] Date/Time of Exam: 11/12/2022 10:12 AM Reason For Exam: Other dysphagia Fluoroscopy time: 3min [id number] minutes # of spot films: Modified barium swallow exam was performed in conjunction with the speech therapy service. The patient experienced significant difficulty initiating the swallowing process at the level of the oropharynx. Great difficulty elevating the tongue to the hard palate to initiate the swallowing proce ss when ingesting all consistencies of barium mixture foodstuffs. There was no aspiration or penetrat ion identified. Esophageal motility was otherwise normal. The patient could not initiate the swallowi ng process when attempting to ingest a barium tablet. FL/FL barium swallow modifd [id number] IMPRESSION: 1. Significant oropharyngeal swallowing dysfunction as discussed above. 2. Esophageal motility was otherwise normal and there is no aspiration or penet ration identified. 3. Unsuccessful attempt at swallowing a barium tablet. See above discussion. A separate report of findings and recommendations will follow from the speech t herapy service.
== END 2022-11-12 09:59 | disposition home or self-care (01) ==
PROVIDERS: PCP Family Medicine; Visit Provider Otolaryngology
DX: R13.10 Dysphagia, unspecified (principal)
CPT/HCPCS: 74230; 92611

== ENCOUNTER → 2022-11-19 15:29 | Outpatient (BNVA) | payer MEDICARE, MEDICAID, SELFPAY | PROVIDERS: PCP Family Medicine; Visit Provider Otolaryngology | DX: R13.10 Dysphagia, unspecified (principal); G24.01 Drug induced subacute dyskinesia; T43.505A Adverse effect of unspecified antipsychotics and neuroleptics, initial encounter; X58.XXXA Exposure to other specified factors, initial encounter | CPT/HCPCS: 99213 ==

== ENCOUNTER → 2022-11-24 12:39 | Outpatient (BNVA) | payer MEDICARE, MEDICAID, SELFPAY | PROVIDERS: PCP Family Medicine; Visit Provider Internal Medicine Pulmonary Disease | DX: J98.4 Other disorders of lung; J31.0 Chronic rhinitis; J32.9 Chronic sinusitis, unspecified; Z95.3 Presence of xenogenic heart valve; R53.81 Other malaise; Z91.89 Other specified personal risk factors, not elsewhere classified; Z86.73 Personal history of transient ischemic attack (TIA), and cerebral infarction without residual deficits; Z87.891 Personal history of nicotine dependence | CPT/HCPCS: 99214 ==

== ENCOUNTER 2022-12-05 07:43 | Outpatient (CLI) | payer MEDICARE, MEDICAID, SELFPAY ==
--- NOTE | 2022-12-05 08:00 | US_ITS ---
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 TECHNIQUE: 2-D and color Doppler imaging is submitted. No soft tissue abnormality is noted within the right foot between the distal metatarsals or proximal phalanges. IMPRESSION: No soft tissue abnormality to suggest a Waldrop's neuroma.
== END 2022-12-05 07:44 ==
PROVIDERS: PCP Family Medicine; Visit Provider Podiatrist Foot & Ankle Surgery
DX: G57.61 Lesion of plantar nerve, right lower limb (principal); M79.671 Pain in right foot
CPT/HCPCS: 76882; 99213

== ENCOUNTER → 2022-12-25 07:40 | Outpatient (BNVA) | payer MEDICARE, MEDICAID, SELFPAY | PROVIDERS: PCP Family Medicine; Visit Provider Specialist | DX: G24.01 Drug induced subacute dyskinesia (principal); T43.505A Adverse effect of unspecified antipsychotics and neuroleptics, initial encounter; X58.XXXA Exposure to other specified factors, initial encounter; G24.3 Spasmodic torticollis | CPT/HCPCS: 64616; 99214; J0585 ==

== ENCOUNTER → 2023-01-05 11:00 | Outpatient (BNVA) | payer MEDICARE, MEDICAID, SELFPAY | PROVIDERS: PCP Family Medicine; Visit Provider Podiatrist Foot & Ankle Surgery | DX: M79.671 Pain in right foot (principal); G57.61 Lesion of plantar nerve, right lower limb | CPT/HCPCS: 64455; 73630; 99214; J1100; J3301; J3490 ==

== ENCOUNTER 2023-01-19 19:23 | Emergency (ER) | payer MEDICARE, MEDICAID, SELFPAY ==
[2023-01-19 19:24] VITALS: BP 148/92; PULSE 77; RESP 18; TEMP 36.8; O2SAT 95; BMI 23.6
--- NOTE | 2023-01-19 19:49 | XRR_ITS ---
PROCEDURE INFORMATION: Exam: XR Chest Exam date and time: 01/19/2023 8:01 PM Age: 77 years old Clinical indication: Other: Weakness; Prior surgery; Surgery date: 1-6 months; Surgery type: Open heart pig valve; Additional info: Riki TECHNIQUE: Imaging protocol: Radiologic exam of the chest. Views: 1 view. COMPARISON: CR XR chest 1V portable [id number] 12/24/2021 8:04 PM FINDINGS: Lungs: Lungs are clear bilaterally. Pleural spaces: No pleural effusion. No pneumothorax. Heart/Mediastinum: Stable moderate enlargement of the cardiac silhouette. Mediastinal contours are unremarkable. Vasculature: Stable vascular calcifications in the aorta. Bones/joints: Poststernotomy changes in the chest. Degenerative changes in the spine and shoulders. Bones are diffusely osteopenic. Osseous findings are stable. Linear lucency underneath the medial left hemidiaphragm concerning for free intraperitoneal air. XR/XR chest 1V portable [id number] IMPRESSION: 1. Linear lucency underneath the medial left hemidiaphragm concerning for free intraperitoneal air. Recommend clinical correlation. If patient has not had recent abdominal surgery findings would be concerning for bowel perforation. CT scan of the abdomen/pelvis is also recommended. 2. Lungs are clear bilaterally. 3. Incidental/nonacute findings are listed in the report.
--- NOTE | 2023-01-19 19:49 | CTR_ITS ---
PROCEDURE INFORMATION: Exam: CT Head Without Contrast Exam date and time: 01/19/2023 8:22 PM Age: 77 years old Clinical indication: Dizziness; Additional info: Dizzy TECHNIQUE: Imaging protocol: Computed tomography of the head without contrast. Sagittal and coronal reformatted images were created and reviewed. Radiation optimization: All CT scans at this facility use at least one of these dose optimization techniques: automated exposure control; mA and/or kV adjustment per patient size (includes targeted exams where dose is matched to clinical indication); or iterative reconstruction. REPORTING DATA: Count of CT and Cardiac NM exams in prior 12 months: This patient has received 0 known CTs and 0 known cardiac nuclear medicine studies in the 12 months prior to the current study. COMPARISON: CT head wo con* [id number] 12/24/2021 8:10 PM RADIATION DOSE METRICS: Total DLP (mGy-cm): 1020.88 FINDINGS: Brain: No acute intracranial hemorrhage. No acute infarct. No intra-axial or extra-axial masses. Blanco-white matter differentiation is preserved. No cerebral edema. No extra-axial fluid collections. No midline shift. No evidence for Chiari 1 malformation. Stable mild atrophy of the brain parenchyma. Stable moderate decreased attenuation in the deep white matter, consistent with mild chronic microangiopathic change. Cerebral ventricles: No hydrocephalus. Paranasal sinuses: Paranasal sinuses are clear. Mastoid air cells: Mastoid air cells are clear bilaterally. Orbital cavities: Globes and lenses, extraocular muscles, and optic nerves are intact bilaterally. No acute intraorbital abnormality. Dental: The patient is edentulous. Bones/joints: Degenerative changes at the right and left temporomandibular joints. Old fracture of the right nasal bone.Bones are diffusely osteopenic. Degenerative changes at the visualized cervical spine. Osseous findings are stable. Soft tissues: No acute abnormality of the extracranial soft tissues. Vasculature: Atherosclerotic changes in the visualized arteries. CT/CT head wo con* [id number] IMPRESSION: 1. No acute abnormality of the brain. 2. Stable mild atrophy of the brain parenchyma. 3. Stable moderate chronic white matter microangiopathic change. 4. Incidental/nonacute findings are listed in the report.
[2023-01-19 19:50] VITALS: BP 164/78; PULSE 80; RESP 18; O2SAT 94
--- NOTE | 2023-01-19 19:50 | ECG_ITS ---
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 Measurements Intervals Bouse Rate: 72 P: 55 CA: 130 QRS: -28 QRSD: 120 T: 49 QT: 418 QTc: 459 Interpretive Statements SINUS RHYTHM POSSIBLE LEFT ATRIAL ENLARGEMENT [-0.1mV P-WAVE IN V1/V2] BORDERLINE LEFT AXIS DEVIATION [QRS AXIS < -20] RIGHT BUNDLE BRANCH BLOCK [120+ ms QRS DURATION, UPRIGHT V1, 40+ ms S IN I/aVL/V4/V5/V6] POSSIBLE LEFT VENTRICULAR HYPERTROPHY [VOLTAGE CRITERIA PLUS LAE OR QRS WIDENING] Compared to ECG 12/24/2021 21:51:37 Right bundle-branch block now present Sinus arrhythmia no longer present T-wave abnormality no longer present Electronically Signed On 01-20-2023 21:08:51 CDT by Zarina Pride M.D. [id number]
[2023-01-19 20:07] LABS: Basophils % 0.3 %; Eosinophils % 0.2 %; Hematocrit 42.4 % (36-47); Lymphocytes % 8.6 %; Mean Corpuscular HGB Conc 32.5 g/dL (30-55); Mean Corpuscular Hemoglobin 29.1 pg (27-33); Mean Corpuscular Volume 89.5 fl (85-98); Mean Platelet Volume 10.5 fL (7.4-10.4); Monocytes # 0.5 10^3/uL (0.2-0.9); Monocytes % 4.4 %; Neutrophils # 9.48 10^3/uL (1.8-7.7); Neutrophils % 86.1 %; Nucleated Red Blood Cells % 0 %; Platelet Count 141 10^3/cmm (157-399); Red Blood Count 4.74 10^6/uL (3.85-5.65)
[2023-01-19 20:10] LABS: Add Urine Microscopic? YES; Bilirubin Urine Neg (Negative); Blood Urine Neg (Negative); Glucose Urine UA 1+ (Normal); Ketones Urine Negative (Negative); Leukocyte Esterase Urine 2+ (Negative); Nitrate Urine Negative (Negative); Protein Urine Neg (Negative); Urine Appearance Clear (CLEAR); Urine Color Yellow (Yellow); Urobilinogen Urine Neg (Negative); pH Urine 6 (5-7)
[2023-01-19 20:11] LABS: Bacteria Urine 3+ /hpf
[2023-01-19 20:12] LABS: Add Urine Culture? Yes
[2023-01-19 20:19] LABS: INR 0.96 (0.8-1.2)
[2023-01-19 20:20] LABS: Partial Thromboplastin Time 24.3 SECONDS (23.9-36.7)
[2023-01-19 20:24] LABS: Alanine Aminotransferase 34 U/L (0-33); Albumin Level 3.7 g/dL (3.5-5.2); Alkaline Phosphatase 105 U/L (35-105); Anion Gap 11.7 (5-19); Aspartate Amino Transferase 21 U/L (0-32); Blood Urea Nitrogen 25 mg/dL (8-23); Calcium 8.7 mg/dL (8.5-10.5); Carbon Dioxide 28 mmol/L (22-29); Chloride 105 mmol/L (98-107); Creatine Phosphokinase 37 U/L (26-192); Globulin 2.6 g/dL (1.3-4.6); Glucose 220 mg/dL (65-115); Magnesium 2.3 mg/dL (1.7-2.3); Osmolality Calculated 301 mOsm/kg (285-295); Potassium 4.7 mmol/L (3.5-5.1); Sodium 140 mmol/L (136-145); Total Bilirubin 0.2 mg/dL (0.15-1.2); Total Protein 6.3 g/dL (6.6-8.7)
[2023-01-19] MEDS: sodium chloride 0.9% 1,000 ML 999 ML IV (20:46)
--- NOTE | 2023-01-19 20:57 | CTR_ITS ---
PROCEDURE INFORMATION: Exam: CT Abdomen And Pelvis Without Contrast Exam date and time: 01/19/2023 9:34 PM Age: 77 years old Clinical indication: Abnormal findings; Abnormal radiologic finding of the abdomen; Radiologic exam and body structure: Chest xray; Additional info: ? Free air by chest x ray TECHNIQUE: Imaging protocol: Computed tomography of the abdomen and pelvis without contrast. Sagittal and coronal reformatted images were created and reviewed. Radiation optimization: All CT scans at this facility use at least one of these dose optimization techniques: automated exposure control; mA and/or kV adjustment per patient size (includes targeted exams where dose is matched to clinical indication); or iterative reconstruction. REPORTING DATA: Count of CT and Cardiac NM exams in prior 12 months: This patient has received 0 known CTs and 0 known cardiac nuclear medicine studies in the 12 months prior to the current study. COMPARISON: 1. CT abdomen pelvis wo con [id number] 12/13/2019 4:52 PM 2. CR (CHEST, ) 01/19/2023 8:01 PM RADIATION DOSE METRICS: Total DLP (mGy-cm): 483.3 FINDINGS: Lungs: Dependent atelectasis in the lungs bilaterally. Calcified granulomas in both lower lobes. Pleural spaces: No pleural effusion. Heart: The patient has a prosthetic aortic valve. Calcification of the mitral valve annulus. Visualized portions of the heart are moderately enlarged. Liver: The liver is unremarkable. Gallbladder and bile ducts: Stable findings consistent with a previous cholecystectomy. Stable dilatation of the biliary ducts, not unexpected in a patient who has had a prior cholecystectomy. Pancreas: Stable moderate atrophy of the pancreatic parenchyma. No pancreatic ductal dilatation. Spleen: Multiple calcified granulomas in the spleen. Adrenal glands: The right and left adrenal glands are unremarkable. Kidneys and ureters: The right and left kidneys are unremarkable. The right and left ureters are unremarkable. Stomach and bowel: Ingested contents in the stomach. No acute abnormality in the small bowel. Numerous diverticula in the sigmoid colon. No evidence for diverticulitis. Appendix: Appendix not definitely visualized. No inflammatory changes in the pericecal region however. Intraperitoneal space: No free intraperitoneal air. No ascites. No loculated fluid collections to suggest an abscess. Vasculature: Stable mild atherosclerotic calcifications in the visualized arteries. No evidence for aortic aneurysm. Lymph nodes: No lymphadenopathy. Urinary bladder: The bladder is unremarkable. Reproductive: Stable changes consistent with a previous hysterectomy. The ovaries are not definitely visualized, not an expected in a postmenopausal female. This may be due to ovarian atrophy. Alternatively, the patient may have had a previous bilateral oophorectomy. Findings are stable. Bones/joints: Bones are diffusely osteopenic. Poststernotomy changes in the chest. Degenerative changes in the spine, sacroiliac joints, and hips. Moderate spinal canal stenosis at L4-L5 and L5-S1. Multilevel foraminal stenosis of varying severity in the lumbar spine. Soft tissues: No acute abnormality in the extra-abdominal soft tissues. CT/CT abdomen pelvis wo con [id number] IMPRESSION: 1. No acute abnormality in the abdomen or pelvis. No free intraperitoneal air in the abdomen, findings on the prior chest x-ray were likely artifactual in nature. 2. Sigmoid diverticulosis. No evidence for diverticulitis. 3. Incidental/nonacute findings are listed in the report.
--- NOTE | 2023-01-19 21:56 | W.ED.DIZZY ---
HPI - Dizziness General: Chief Complaint: Dizziness Stated Complaint: WEAKNESS Time Seen by Provider: 01/19/23 19:31 Source: patient History of Present Illness: HPI Narrative: 77-year-old female presents with dizziness and generalized weakness. She says this happened at home earlier. She is feeling better now. She notes that she believes her blood pressure was low at home when this happened. She stood up to go to the bathroom, and barely made it there she says, because she was so dizzy. Her blood pressure she says was 99/45 at home. Again, she is feeling better. There is no focal weakness. She is not dizzy anymore. MD elicited complaint: dizziness, lightheadedness and difficulty walking Associated symptoms: Denies chest pain, chills, headache(s), nausea, palpitations or vomiting Associated neuro symptoms: Deny confusion Review of Systems Const: Denies: fever(s), chills or body aches Eyes: Denies: change in vision Card: Denies: chest pain or palpitations Resp: Denies: dyspnea, productive cough, non-productive cough or wheezing GI: Denies: abdominal pain, nausea, vomiting, diarrhea or hematochezia : Denies: difficulty voiding Skin/Breast: Denies: rash Neuro: Reports: difficulty walking and dizziness; Denies: headache(s), weakness in extremities or confusion [facility] ED PFSH: Medical History Aortic stenosis, severe Arthropathy, unspecified Backache Bipolar affective disorder Chronic obstructive pulmonary disease, unspecified DNR (do not resuscitate) HTN (hypertension) Hypercholesterolemia Irritable bowel syndrome Labyrinthitis Peripheral vertigo RLS (restless legs syndrome) Sleep apnea Tardive dyskinesia Surgical History H/O eye surgery H/O foot surgery H/O oral surgery History of abdominal hysterectomy History of appendectomy History of nasal surgery Hx of cholecystectomy Status post aortic valve replacement with bioprosthetic valve Family History Other Hypertension Social History Smoking and tobacco status: former smoker Quit status (tobacco): has quit using tobacco Year quit tobacco: 1979 - ciggs x 6 Years Second hand smoke exposure: No Alcohol intake: never Substance/Drug Use: never Caregiver/support person: Yes Lives independently: Yes Household members: none Housing: House Marital status: / Current occupational status: retired and disabled Pets and animals: Yes Pets & animals: dog(s) Do you think of yourself as: Straight/Heterosexual Current gender identity: Female Physical Exam Const: COMMON NORMALS: no acute distress GENERAL APPEARANCE: cooperative; not ill appearing and not frail appearing HENMT: COMMON NORMALS: normocephalic, atraumatic and Normal external nose present HEAD & SCALP: normocephalic and atraumatic FACE & SINUS: normal facial exam and face symmetric NOSE: Normal external nose present Eye: COMMON NORMALS: Equal, round and reactive pupils present and EOMs intact bilaterally PUPIL: Yes Equal, round and reactive pupils present Neck/C-Spine: GENERAL: Yes trachea midline Chest: CHEST: Yes Symmetrical chest wall rise Resp: COMMON NORMALS: normal respiratory effort, No retractions, No use of accessory muscles and clear to auscultation bilaterally AUSCULTATION: clear to auscultation bilaterally Cardio: COMMON NORMALS: regular rate and regular rhythm RATE: regular rate RHYTHM: regular rhythm GI: COMMON NORMALS: Normal to inspection, nondistended, normoactive bowel sounds present Extremity: COMMON NORMALS: no pedal edema Neuro: NANCY COMA SCALE: document GCS findings [place] coma scale eye opening: Spontaneous Nancy coma scale verbal response: Orientated [place] coma scale motor response: Obey commands [place] coma scale total score: 15 SENSORY EXAM: Yes extremities (intact) Psych: COMMON NORMALS: speech normal SPEECH: Yes normal speech Skin: COMMON NORMALS: no rashes or lesions noted GENERAL SKIN EXAM: no rashes or lesions noted Course Vital Signs: Vital signs: Vital Signs Temperature 98.3 F 01/19/23 19:24 Pulse Rate 91 01/19/23 22:33 Respiratory Rate 18 01/19/23 22:33 Blood Pressure 190/72 01/19/23 22:33 Pulse Oximetry 94 01/19/23 22:33 Oxygen Delivery Me thod Room Air 01/19/23 22:33 MDM - Dizziness Medical Decision Making 77-year-old female with evidently quite labile blood pressure changes. She presents after a period of dizziness. Her blood pressure was low at home when this happened. Her blood pressure has been mildly high here, and steadily climbing. She has no focal neurological deficits. Her CBC is not remarkable. BMP is not remarkable. Her creatinine is 1. BUN is 25. She appears to have a urinary tract infection on laboratory testing. Chest x-ray reveals clear lungs. There was concern over linear lucency underneath the left hemidiaphragm for potential of free air. Belly CT is ordered because of this, and is negative. She will be allowed home. Lab Data 01/19/23 19:58 01/19/23 19:58 Radiology Impressions Chest X-Ray 01/19/23 19:49 IMPRESSION: 1. Linear lucency underneath the medial left hemidiaphragm concerning for free intraperitoneal air. Recommend clinical correlation. If patient has not had recent abdominal surgery findings would be concerning for bowel perforation. CT scan of the abdomen/pelvis is also recommended. 2. Lungs are clear bilaterally. 3. Incidental/nonacute findings are listed in the report. ADDENDUM: 01/19/232139 THIS REPORT CONTAINS FINDINGS THAT MAY BE CRITICAL TO PATIENT CARE. CODY Zurita confirmed on 01/19/2023 at 9:39 PM CDT that a copy of the report containing critical findings was received and there were no questions. Head CT 01/19/23 19:49 IMPRESSION: 1. No acute abnormality of the brain. 2. Stable mild atrophy of the brain parenchyma. 3. Stable moderate chronic white matter microangiopathic change. 4. Incidental/nonacute findings are listed in the report. Abdomen/Pelvis CT 01/19/23 20:57 IMPRESSION: 1. No acute abnormality in the abdomen or pelvis. No free intraperitoneal air in the abdomen, findings on the prior chest x-ray were likely artifactual in nature. 2. Sigmoid diverticulosis. No evidence for diverticulitis. 3. Incidental/nonacute findings are listed in the report. Laboratory Results WBC 11.00 10^3/uL (3.29-11.43) 01/19/23 19:58 RBC 4.74 10^6/uL (3.85-5.65) 01/19/23 19:58 Hgb 13.80 g/dL (11.27-16.99) 01/19/23 19:58 Hct 42.4 % (36-47) 01/19/23 19:58 MCV 89.5 fl (85-98) 01/19/23 19:58 MCH 29.1 pg (27-33) 01/19/23 19:58 MCHC 32.5 g/dL (30-55) 01/19/23 19:58 RDW 13.0 % (12.1-15.1) 01/19/23 19:58 Plt Count 141 10^3/cmm (157-399) L 01/19/23 19:58 MPV 10.5 fL (7.4-10.4) H 01/19/23 19:58 Neut % (Auto) 86.1 % 01/19/23 19:58 Lymph % (Auto) 8.6 % 01/19/23 19:58 [place] % (Auto) 4.4 % 01/19/23 19:58 Eos % (Auto) 0.2 % 01/19/23 19:58 Baso % (Auto) 0.3 % 01/19/23 19:58 Neut # (Auto) 9.48 10^3/uL (1.8-7.7) H 01/19/23 19:58 Lymph # (Auto) 1.0 10^3/uL (0.8-4.8) 01/19/23 19:58 [place] # (Auto) 0.5 10^3/uL (0.2-0.9) 01/19/23 19:58 Eos # (Auto) 0.0 10^3/uL (0.0-0.8) 01/19/23 19:58 Baso # (Auto) 0.0 10^3/uL (0.0-0.1) 01/19/23 19:58 Nucleated RBC % (auto) 0 % 01/19/23 19:58 Nucleated RBCs # 0.0 /100WBC 01/19/23 19:58 PT 13.10 SECONDS (12.1-14.9) 01/19/23 19:58 INR 0.96 (0.8-1.2) 01/19/23 19:58 APTT 24.3 SECONDS (23.9-36.7) 01/19/23 19:58 Sodium 140 mmol/L (136-145) 01/19/23 19:58 Potassium 4.7 mmol/L (3.5-5.1) 01/19/23 19:58 Chloride 105 mmol/L (98-107) 01/19/23 19:58 Carbon Dioxide 28 mmol/L (22-29) 01/19/23 19:58 Anion Gap 11.7 (5-19) 01/19/23 19:58 BUN 25 mg/dL (8-23) H 01/19/23 19:58 Creatinine 1.0 mg/dL (0.5-0.9) H 01/19/23 19:58 GFR Calculation Not Reportable 01/19/23 19:58 Glucose 220 mg/dL (65-115) H 01/19/23 19:58 Calculated Osmolality 301 mOsm/kg (285-295) H 01/19/23 19:58 Calcium 8.7 mg/dL (8.5-10.5) 01/19/23 19:58 Magnesium 2.3 mg/dL (1.7-2.3) 01/19/23 19:58 Total Bilirubin 0.2 mg/dL (0.15-1.2) 01/19/23 19:58 AST 21 U/L (0-32) 01/19/23 19:58 ALT 34 U/L (0-33) H 01/19/23 19:58 Alkaline Phosphatase 105 U/L (35-105) 01/19/23 19:58 Creatine Kinase 37 U/L (26-192) 01/19/23 19:58 Total Protein 6.3 g/dL (6.6-8.7) L 01/19/23 19:58 Albumin 3.7 g/dL (3.5-5.2) 01/19/23 19:58 Globulin 2.6 g/dL (1.3-4.6) 01/19/23 19:58 Urine Color Yellow (Yellow) 01/19/23 19:46 Urine Appearance Clear (CLEAR) 01/19/23 19:46 Urine pH 6 (5-7) 01/19/23 19:46 Ur Specific [place] 1.010 (1.005-1.030) 01/19/23 19:46 Urine Protein Neg (Negative) 01/19/23 19:46 Urine Glucose (UA) 1+ (Normal) H 01/19/23 19:46 Urine Ketones Negative (Negative) 01/19/23 19:46 Urine Blood Neg (Negative) 01/19/23 19:46 Urine Nitrate Negative (Negative) 01/19/23 19:46 Urine Bilirubin Neg (Negative) 01/19/23 19:46 Urine Urobilinogen Neg mg/dL (Negative) 01/19/23 19:46 Ur Leukocyte Esterase 2+ (Negative) H 01/19/23 19:46 Urine RBC None /hpf (0-2) 01/19/23 19:46 Urine WBC 10-15 /hpf (0-5) H 01/19/23 19:46 Ur Squamous Epith Cells None /hpf (0-5) 01/19/23 19:46 Amorphous Sediment Not Reportable 01/19/23 19:46 Urine Bacteria 3+ /hpf (NONE) H 01/19/23 19:46 All radiology interpretation(s) finalized by discharge Discharge Plan Discharge Patient Disposition: Home Clinical Impression: Orthostatic hypotension, Urinary tract infection Clinical Impression: (Ruled Out): Left acute arterial ischemic stroke, MCA (middle cerebral artery) Condition: Stable Prescriptions: New nitrofurantoin macrocrystal 100 mg capsule 100 mg PO BID 7 Days Qty: 14 0RF Rx Instructions: must administer with a meal/food No Action omeprazole 20 mg capsule,delayed release(DR/EC) 20 mg PO DAILY onabotulinumtoxinA 100 unit recon soln SUBCUT [place] 6 mg tablet 6 mg PO BID diclofenac sodium 3 % gel 1 applic topical BID azelastine 137 mcg (0.1 %) aerosol,spray 1 spray intranasal BID PRN Rx Instructions: administer into each nostril prednisone 5 mg tablet 5 mg PO DIRECTED Rx Instructions: see taper instructions zinc gluconate 50 mg tablet 50 mg PO DAILY metoprolol succinate 25 mg tablet extended release 24 hr 25 mg PO DAILY Qty: 30 5RF cefdinir 300 mg capsule 300 mg PO Q12H lisinopril 10 mg tablet 10 mg PO DAILY levocetirizine 5 mg tablet 5 mg PO DAILY Qty: 90 1RF ropinirole 0.25 mg tablet See Rx Instructions .ROUTE .COMPLEX Qty: 180 3RF Dose Instruction: TAKE 1 TABLET BY MOUTH TWICE DAILY Rx Instructions: TAKE 1 TABLET BY MOUTH TWICE DAILY [place] TD Titratn Pk (Wk 1-2) 6 mg (14)- 9 mg (14) tablets,dose pack See Rx Instructions PO PER PKG DIR Qty: 28 0RF Rx Instructions: PO PER PKG DIR Aspir-81 81 mg Tablet,Delayed Release (Dr/Ec) 81 mg PO DAILY Hold Instructions: Resume on 12/23/19. Rx Instructions: medication on pts discharge paperwork from retirement Discharge Orders: Discharge ED (Routine); Ordered 01/19/23 Ordered By: Cody Coulter Referrals: Mandeep Madrigal MD [Primary Care Provider] - 1-3 days Patient Instructions: Hypotension (ED), Near Syncope (ED), Urinary Tract Infection in Older Adults (ED) Activity Restrictions/Additional Instructions: Your blood pressure appeared to be low on standing or change of position at home. This likely caused her symptoms. Her blood pressure has steadily climbed here in the ER. You do have a urinary tract infection, which will be treated. Return for repeated episodes of syncope, or almost passing out, mental status changes, focal weakness, any other concerning symptoms. Follow-up with your doctor. Coding Level of Care Code ED Lightout Examiner for 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
[2023-01-19] MEDS: labetalol 5 mg/mL SDV 20mL 20 MG IVP (22:30)
[2023-01-19] MEDS: nitrofurantoin SR (BID) 100 mg Capsule PO (22:31)
[2023-01-19 22:33] VITALS: BP 190/72; PULSE 91; RESP 18; O2SAT 94
[2023-01-19] MEDS: metoprolol tartrate 1 mg/1 mL SDV 5 mL 5 MG IVP (23:14)
[2023-01-20] MEDS: enalaprilat 1.25 mg/mL Inj IVP (00:02)
[2023-01-20] MEDS: labetalol 5 mg/mL SDV 20mL 20 MG IVP (00:02)
[2023-01-20 00:52] VITALS: BP 194/86; PULSE 68; RESP 18; O2SAT 95
== END 2023-01-20 00:17 | disposition home or self-care (01) ==
PROVIDERS: Emergency Provider Emergency Medicine; PCP Family Medicine
DX: I95.1 Orthostatic hypotension (principal); N39.0 Urinary tract infection, site not specified; Z79.82 Long term (current) use of aspirin; Z87.891 Personal history of nicotine dependence; J44.9 Chronic obstructive pulmonary disease, unspecified; I10 Essential (primary) hypertension
CPT/HCPCS: 36415; 70450; 71045; 74176; 80053; 81001; 82550; 83735; 85025; 85610; 85730; 87077; 87086; 87186; 93005; 96361; 96374; 96375; 96376; 99285; J3490; J7030

== ENCOUNTER → 2023-02-03 15:19 | Outpatient (BNVA) | payer MEDICARE, MEDICAID, SELFPAY | PROVIDERS: PCP Family Medicine; Visit Provider Podiatrist Foot & Ankle Surgery | DX: G57.61 Lesion of plantar nerve, right lower limb (principal) | CPT/HCPCS: 64455; J1100; J3301; J3490 ==

== ENCOUNTER → 2023-04-09 10:01 | Outpatient (BNVA) | payer MEDICARE, MEDICAID, SELFPAY | PROVIDERS: PCP Family Medicine; Visit Provider Podiatrist Foot & Ankle Surgery | DX: G57.61 Lesion of plantar nerve, right lower limb (principal) | CPT/HCPCS: 99213 ==

== ENCOUNTER → 2023-05-22 11:17 | Outpatient (BNVA) | payer OTHER, MEDICAID, SELFPAY | PROVIDERS: PCP Family Medicine; Visit Provider Specialist | DX: G24.3 Spasmodic torticollis (principal); G24.01 Drug induced subacute dyskinesia; T43.505A Adverse effect of unspecified antipsychotics and neuroleptics, initial encounter; X58.XXXA Exposure to other specified factors, initial encounter | CPT/HCPCS: 64616; J0585 ==

== ENCOUNTER 2023-06-12 17:38 | Emergency (ER) | payer OTHER, MEDICAID, SELFPAY ==
[2023-06-12 17:41] VITALS: BP 229/88; PULSE 76; TEMP 36.7; O2SAT 94
--- NOTE | 2023-06-12 17:49 | XRR_ITS ---
PROCEDURE INFORMATION: Exam: XR Left Shoulder Exam date and time: 06/12/2023 7:16 PM Age: 78 years old Clinical indication: Injury or trauma; Fall; Other: Unknown TECHNIQUE: Imaging protocol: Radiologic exam of the left shoulder. Views: 2 or more views. COMPARISON: CR (CHEST, ) 06/12/2023 7:16 PM FINDINGS: Bones/joints: Normal. Soft tissues: Normal. XR/XR shoulder LT min 2V* [id number] IMPRESSION: No acute findings.
--- NOTE | 2023-06-12 17:49 | CTR_ITS ---
PROCEDURE INFORMATION: Exam: CT Head Without Contrast Exam date and time: 06/12/2023 6:22 PM Age: 78 years old Clinical indication: Stroke-like symptoms; Syncope/collapse TECHNIQUE: Imaging protocol: Computed tomography of the head without contrast. Radiation optimization: All CT scans at this facility use at least one of these dose optimization techniques: automated exposure control; mA and/or kV adjustment per patient size (includes targeted exams where dose is matched to clinical indication); or iterative reconstruction. Other technique: STROKE PROTOCOL was implemented. COMPARISON: CT head wo con* [id number] 01/19/2023 8:22 PM RADIATION DOSE METRICS: Total DLP (mGy-cm): 1063.28 FINDINGS: Brain: No acute infarct. No hemorrhage. Stable involutional changes of the brain. No mass effect. Cerebral ventricles: Stable ventricular size. No ventriculomegaly. Paranasal sinuses: No significant inflammation. No fluid levels. Mastoid air cells: Visualized mastoid air cells are well aerated. Bones/joints: Unremarkable. No acute fracture. Soft tissues: Unremarkable. CT/CT head wo con* [id number] IMPRESSION: No acute intracranial abnormality. ASSESSMENT: ASPECTS ([place] Stroke Program Early CT Score) is 10.
--- NOTE | 2023-06-12 17:49 | XRR_ITS ---
PROCEDURE INFORMATION: Exam: XR Chest Exam date and time: 06/12/2023 7:16 PM Age: 78 years old Clinical indication: Other: Syncope TECHNIQUE: Imaging protocol: Radiologic exam of the chest. Views: 1 view. COMPARISON: CR (CHEST, ) 01/19/2023 8:01 PM FINDINGS: Lungs: Minimal bibasilar atelectasis or infiltrates. Pleural spaces: Unremarkable. No pleural effusion. No pneumothorax. Heart/Mediastinum: Stable heart size. Bones/joints: Stable sternotomy changes. XR/XR chest 1V portable [id number] IMPRESSION: Minimal bibasilar atelectasis or infiltrates. Correlate for pulmonary infection.
--- NOTE | 2023-06-12 18:03 | CTR_ITS ---
PROCEDURE INFORMATION: Exam: CTA Head With Contrast, Arteriography Exam date and time: 06/12/2023 6:27 PM Age: 78 years old Clinical indication: Stroke-like symptoms; Syncope/collapse; Additional info: Dizzy TECHNIQUE: Imaging protocol: Computed tomographic angiography of the head with contrast. Exam focused on the arteries. 3D rendering (Not supervised by radiologist): MIP and/or 3D reconstructed images were created by the technologist. Radiation optimization: All CT scans at this facility use at least one of these dose optimization techniques: automated exposure control; mA and/or kV adjustment per patient size (includes targeted exams where dose is matched to clinical indication); or iterative reconstruction. Contrast material: OMNI 350; Contrast volume: 80 ml; Contrast route: INTRAVENOUS (IV); COMPARISON: CT head wo con* [id number] 06/12/2023 6:22 PM RADIATION DOSE METRICS: Total DLP (mGy-cm): 400 FINDINGS: ANTERIOR CIRCULATION: Right internal carotid artery: Atherosclerosis right internal carotid with mild stenosis similar to previous. 2 mm inferiorly projecting right supraclinoid ICA aneurysm best seen on series 9, image 65 is unchanged. Right middle cerebral artery: No occlusion or significant stenosis. No aneurysm. Right anterior cerebral artery: No occlusion or significant stenosis. No aneurysm. Left internal carotid artery: Atherosclerosis left internal carotid with mild stenosis is unchanged. Left middle cerebral artery: No occlusion or significant stenosis. No aneurysm. Left anterior cerebral artery: No occlusion or significant stenosis. No aneurysm. POSTERIOR CIRCULATION: Right vertebral artery: Mild atherosclerotic changes V4 segment right vertebral artery without significant stenosis. Left vertebral artery: No occlusion or significant stenosis. No aneurysm. Basilar artery: No occlusion or significant stenosis. No aneurysm. Right posterior cerebral artery: No occlusion or significant stenosis. No aneurysm. Left posterior cerebral artery: No occlusion or significant stenosis. No aneurysm. Brain: No definite mass, mass effect, or midline shift. Cerebral ventricles: No ventriculomegaly. Bones/joints: Unremarkable. No acute fracture. Soft tissues: Unremarkable. PROCEDURE INFORMATION: Exam: CTA Neck With Contrast Exam date and time: 06/12/2023 6:27 PM Age: 78 years old Clinical indication: Stroke-like symptoms; Syncope/collapse; Additional info: Dizzy TECHNIQUE: Imaging protocol: Computed tomographic angiography of the neck with contrast. Exam focused on the cervical segments of the vasculature. 3D rendering (Not supervised by radiologist): MIP and/or 3D reconstructed images were created by the technologist. Radiation optimization: All CT scans at this facility use at least one of these dose optimization techniques: automated exposure control; mA and/or kV adjustment per patient size (includes targeted exams where dose is matched to clinical indication); or iterative reconstruction. Contrast material: OMNI 350; Contrast volume: 80 ml; Contrast route: INTRAVENOUS (IV); COMPARISON: CT angio headneck* [id number] 10/18/2019 11:13 AM RADIATION DOSE METRICS: Total DLP (mGy-cm): 400 FINDINGS: Right common carotid artery: No stenosis. No dissection or occlusion. Right internal carotid artery: No stenosis of the extracranial segment. No dissection or occlusion. Right external carotid artery: No occlusion or stenosis of the origin. Left common carotid artery: No stenosis. No dissection or occlusion. Left internal carotid artery: Atherosclerotic changes proximal left internal carotid artery are seen without significant stenosis. Left external carotid artery: No occlusion or stenosis of the origin. Right vertebral artery: No stenosis. No dissection or occlusion. Left vertebral artery: No stenosis. No dissection or occlusion. Aorta: Atherosclerosis thoracic aorta again present. Soft tissues: Normal. No significant soft tissue swelling. Bones/joints: Previous sternotomy. Degenerative bony changes. CT/CT angio headneck* [id number] IMPRESSION: 1. No acute large vessel occlusion identified. 2. Unchanged 2 mm right supraclinoid ICA aneurysm. IMPRESSION: No occlusion or significant stenosis. REFERENCES: NASCET CRITERIA. The degree of stenosis in the cervical segment of the internal carotid artery is based on NASCET criteria. Normal is no stenosis. Mild is less than 50% stenosis. Moderate is 50-69% stenosis. Severe is 70% to 99% stenosis. Total occlusion is no detectable patent lumen.
--- NOTE | 2023-06-12 18:03 | XRR_ITS ---
PROCEDURE INFORMATION: Exam: XR Bilateral Hips Exam date and time: 06/12/2023 7:16 PM Age: 78 years old Clinical indication: Injury or trauma; Fall; Other: Unknown TECHNIQUE: Imaging protocol: Radiologic exam of the bilateral hips. Views: 2 views of hips with pelvis when performed. COMPARISON: CT abdomen pelvis wo con [id number] 01/19/2023 9:34 PM FINDINGS: Bones/joints: Mild arthrosis bilaterally in the hips. No acute displaced fracture seen. Soft tissues: Unremarkable. Organs: There is excreted contrast material present in the bladder. XR/XR hip BI 2V wo/w pel [id number] IMPRESSION: No acute findings.
--- NOTE | 2023-06-12 18:05 | W.ED.FALL ---
HPI - Fall General: Chief Complaint: Fall Stated Complaint: FALL- DIZZY Time Seen by Provider: 06/12/23 17:39 Source: patient and EMS Mode of arrival: EMS Limitations: no limitations History of Present Illness: 78-year-old female states she stood up she started to feel dizzy states she had felt like she was going to pass out and had some slight room spinning as well. States she did fell backwards she did hit her head and left shoulder she has left shoulder pain along with hip pain from the fall. Denies any chest pain she had no loss of consciousness Associated symptoms-after fall: Denies abdominal pain, chest pain, headache(s) or neck pain Review of Systems Const: Denies: fever(s), chills, body aches or change in appetite ENMT: Denies: throat pain or dental pain Card: Denies: chest pain Resp: Denies: dyspnea GI: Denies: abdominal pain, nausea, vomiting or diarrhea Musc: Denies: neck pain or back pain Skin/Breast: Denies: rash Neuro: Reports: dizziness; Denies: headache(s) PFSH ED PFSH: Medical History Tardive dyskinesia DNR (do not resuscitate) Hypercholesterolemia Chronic obstructive pulmonary disease, unspecified Labyrinthitis Backache Bipolar affective disorder Arthropathy, unspecified HTN (hypertension) RLS (restless legs syndrome) Sleep apnea Peripheral vertigo Irritable bowel syndrome Aortic stenosis, severe Surgical History History of nasal surgery Status post aortic valve replacement with bioprosthetic valve History of abdominal hysterectomy H/O foot surgery H/O eye surgery H/O oral surgery Hx of cholecystectomy History of appendectomy Family History Other Hypertension Social History Smoking and tobacco/nicotine status: former use of tobacco/nicotine Quit status (tobacco/nicotine): has quit using Year quit tobacco: 1979 - ciggs x 6 Years Second hand smoke exposure: No Alcohol intake: never Substance/Drug Use: never Caregiver/support person: Yes Lives independently: Yes Household members: none Housing: House Marital status: / Current occupational status: retired and disabled Pets and animals: Yes Pets & animals: dog(s) Do you think of yourself as: Straight/Heterosexual Current gender identity: Female Physical Exam Const: COMMON NORMALS: patient oriented x3 HENMT: COMMON NORMALS: normocephalic and atraumatic HEAD & SCALP: normocephalic and atraumatic Eye: COMMON NORMALS: Equal, round and reactive pupils present and EOMs intact bilaterally PUPIL: Yes Equal, round and reactive pupils present Neck/C-Spine: COMMON NORMALS: full ROM and supple Chest: COMMONS NORMALS: normal inspection of the chest and normal palpation of entire chest wall Resp: COMMON NORMALS: normal respiratory effort, No retractions, No use of accessory muscles and clear to auscultation bilaterally AUSCULTATION: clear to auscultation bilaterally Cardio: COMMON NORMALS: regular rate, regular rhythm and No murmurs present (Cardio) RATE: regular rate RHYTHM: regular rhythm GI: COMMON NORMALS: Normal to inspection, nondistended, normoactive bowel sounds present, Soft to palpation, non-tender and no masses PALPATION: Yes Soft to palpation Extremity: COMMON NORMALS: normal to inspection and full ROM Neuro: COMMON NORMALS: patient oriented x3, moves all extremities and no focal motor deficits Psych: COMMON NORMALS: mental status grossly normal, Normal thought process present and cooperative THOUGHT PROCESS: Normal thought process present Skin: COMMON NORMALS: no rashes or lesions noted and no wounds GENERAL SKIN EXAM: no rashes or lesions noted Course Vital Signs: Vital signs: Vital Signs Temperature 98.1 F 06/12/23 17:41 Pulse Rate 76 06/12/23 17:41 Blood Pressure 185/119 06/12/23 18:42 Pulse Oximetry 94 06/12/23 17:41 Oxygen Delivery Me thod Room Air 06/12/23 17:41 MDM - Fall Medical Decision Making Patient presents here with near syncopal event along with some dizziness she was able to ambulate here with her walker she feels improved head CT is normal she has no signs of a stroke I did offer admission she states that she would like to go home she does not want to stay for she is stable for discharge her neighbors coming to get her informed if she worsens she is to return she understands agrees to plan. Medical Records I reviewed the patient's medical records. Lab Data I reviewed the patient's lab results. 06/12/23 19:15 06/12/23 19:15 Radiology Impressions Chest X-Ray 06/12/23 17:49 IMPRESSION: Minimal bibasilar atelectasis or infiltrates. Correlate for pulmonary infection. Head CT 06/12/23 17:49 IMPRESSION: No acute intracranial abnormality. ASSESSMENT: ASPECTS ([place] Stroke Program Early CT Score) is 10. Shoulder X-Ray 06/12/23 17:49 IMPRESSION: No acute findings. Head/Neck CTA 06/12/23 18:03 IMPRESSION: 1. No acute large vessel occlusion identified. 2. Unchanged 2 mm right supraclinoid ICA aneurysm. IMPRESSION: No occlusion or significant stenosis. REFERENCES: NASCET CRITERIA. The degree of stenosis in the cervical segment of the internal carotid artery is based on NASCET criteria. Normal is no stenosis. Mild is less than 50% stenosis. Moderate is 50-69% stenosis. Severe is 70% to 99% stenosis. Total occlusion is no detectable patent lumen. Hip/Pelvis X-Ray 06/12/23 18:03 IMPRESSION: No acute findings. Laboratory Results WBC 13.04 10^3/uL (3.29-11.43) H 06/12/23 19:15 RBC 5.28 10^6/uL (3.85-5.65) 06/12/23 19:15 Hgb 15.30 g/dL (11.27-16.99) 06/12/23 19:15 Hct 47.0 % (36-47) 06/12/23 19:15 MCV 89.0 fl (85-98) 06/12/23 19:15 MCH 29.0 pg (27-33) 06/12/23 19:15 MCHC 32.6 g/dL (30-55) 06/12/23 19:15 RDW 12.5 % (12.1-15.1) 06/12/23 19:15 Plt Count 187 10^3/cmm (157-399) 06/12/23 19:15 MPV 11.0 fL (7.4-10.4) H 06/12/23 19:15 Neut % (Auto) 81.9 % 06/12/23 19:15 Lymph % (Auto) 12.0 % 06/12/23 19:15 Harrison % (Auto) 4.6 % 06/12/23 19:15 Eos % (Auto) 0.4 % 06/12/23 19:15 Baso % (Auto) 0.3 % 06/12/23 19:15 Neut # (Auto) 10.69 10^3/uL (1.8-7.7) H 06/12/23 19:15 Lymph # (Auto) 1.6 10^3/uL (0.8-4.8) 06/12/23 19:15 Harrison # (Auto) 0.6 10^3/uL (0.2-0.9) 06/12/23 19:15 Eos # (Auto) 0.1 10^3/uL (0.0-0.8) 06/12/23 19:15 Baso # (Auto) 0.0 10^3/uL (0.0-0.1) 06/12/23 19:15 Nucleated RBC % (auto) 0 % 06/12/23 19:15 Nucleated RBCs # 0.0 /100WBC 06/12/23 19:15 Sodium 137 mmol/L (136-145) 06/12/23 19:15 Potassium 4.3 mmol/L (3.5-5.1) 06/12/23 19:15 Chloride 99 mmol/L (98-107) 06/12/23 19:15 Carbon Dioxide 30 mmol/L (22-29) H 06/12/23 19:15 Anion Gap 12.3 (5-19) 06/12/23 19:15 BUN 21 mg/dL (8-23) 06/12/23 19:15 Creatinine 1.0 mg/dL (0.5-0.9) H 06/12/23 19:15 GFR Calculation Not Reportable 06/12/23 19:15 Glucose 132 mg/dL (65-115) H 06/12/23 19:15 Calculated Osmolality 289 mOsm/kg (285-295) 06/12/23 19:15 Calcium 8.6 mg/dL (8.5-10.5) 06/12/23 19:15 Total Bilirubin 0.2 mg/dL (0.15-1.2) 06/12/23 19:15 AST 20 U/L (0-32) 06/12/23 19:15 ALT 17 U/L (0-33) 06/12/23 19:15 Alkaline Phosphatase 89 U/L (35-105) 06/12/23 19:15 Total Protein 6.6 g/dL (6.6-8.7) 06/12/23 19:15 Albumin 3.8 g/dL (3.5-5.2) 06/12/23 19:15 Globulin 2.8 g/dL (1.3-4.6) 06/12/23 19:15 All radiology interpretation(s) finalized by discharge EKG Data EKG 1: I personally reviewed and interpreted this EKG as follows: EKG interpretation date: 06/12/23 EKG interpretation time: 18:39 Interpretation: nsr hr [address] or t wave abnormalities qrs 125 qtc 468 Discharge Plan Discharge Patient Disposition: Home Clinical Impression: Near syncope, Fall Condition: Stable Prescriptions: New meclizine 25 mg tablet 25 mg PO BID PRN (Reason: dizziness) Qty: 20 0RF No Action omeprazole 20 mg capsule,delayed release(DR/EC) 20 mg PO DAILY onabotulinumtoxinA 100 unit recon soln SUBCUT [place] 6 mg tablet 6 mg PO BID diclofenac sodium 3 % gel 1 applic topical BID azelastine 137 mcg (0.1 %) aerosol,spray 1 spray intranasal BID PRN Rx Instructions: administer into each nostril prednisone 5 mg tablet 5 mg PO DIRECTED Rx Instructions: see taper instructions zinc gluconate 50 mg tablet 50 mg PO DAILY cefdinir 300 mg capsule 300 mg PO Q12H lisinopril 10 mg tablet 10 mg PO DAILY levocetirizine 5 mg tablet 5 mg PO DAILY Qty: 90 1RF [place] TD Titratn Pk (Wk 1-2) 6 mg (14)- 9 mg (14) tablets,dose pack See Rx Instructions PO PER PKG DIR Qty: 28 0RF Rx Instructions: PO PER PKG DIR Botox 100 unit recon soln 125 unit IM ONCE Qty: 2 0RF Rx Instructions: 25 R sternomastoid, 60 R trapezius, 20 R side genioglossus, 20 L side genioglossus ropinirole 0.25 mg tablet See Rx Instructions .ROUTE .COMPLEX Qty: 180 3RF Dose Instruction: TAKE 1 TABLET BY MOUTH TWICE DAILY Rx Instructions: TAKE 1 TABLET BY MOUTH TWICE DAILY metoprolol succinate 25 mg tablet extended release 24 hr See Rx Instructions .ROUTE .COMPLEX Qty: 90 3RF Dose Instruction: TAKE 1 TABLET BY MOUTH DAILY Rx Instructions: TAKE 1 TABLET BY MOUTH DAILY Aspir-81 81 mg Tablet,Delayed Release (Dr/Ec) 81 mg PO DAILY Hold Instructions: Resume on 12/23/19. Rx Instructions: medication on pts discharge paperwork from [facility] Discharge Orders: Discharge ED (Routine); Ordered 06/12/23 Ordered By: Christina Armendariz Referrals: Mandeep Madrigal MD [Primary Care Provider] - 4-7 days Discharge Diet: Advance as tolerated Discharge Activity: Resume usual activity Patient Instructions: Near Syncope (ED) Coding Level of Care Code ED Paste Up Artist Apprentice for 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
[2023-06-12] MEDS: iohexol 350 mg/mL 500 mL Btl (per mL) IV (18:28)
--- NOTE | 2023-06-12 18:39 | ECG_ITS ---
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 Measurements Intervals [place] Rate: 67 P: 59 OR: 138 QRS: -41 QRSD: 125 T: 53 QT: 452 QTc: 480 Interpretive Statements SINUS RHYTHM POSSIBLE LEFT ATRIAL ENLARGEMENT [-0.1mV P-WAVE IN V1/V2] LEFT AXIS DEVIATION [QRS AXIS < -30] RIGHT BUNDLE BRANCH BLOCK [120+ ms QRS DURATION, UPRIGHT V1, 40+ ms S IN I/aVL/V4/V5/V6] POSSIBLE LEFT VENTRICULAR HYPERTROPHY [VOLTAGE CRITERIA PLUS LAE OR QRS WIDENING] Compared to ECG 01/19/2023 20:14:55 No significant changes Electronically Signed On 06-12-2023 23:43:03 NEWSPAPER PEDDLER by Caesar Robertson M.D. [id number]
[2023-06-12] MEDS: hyDRALAzine 20 mg/mL INJ 1 mL 10 MG IVP (18:41)
[2023-06-12] MEDS: meclizine 25 mg tablet 50 MG PO (18:41)
[2023-06-12 18:42] VITALS: BP 185/119
[2023-06-12 19:46] LABS: Basophils % 0.3 %; Eosinophils # 0.1 10^3/uL (0.0-0.8); Eosinophils % 0.4 %; Lymphocytes # 1.6 10^3/uL (0.8-4.8); Mean Corpuscular HGB Conc 32.6 g/dL (30-55); Monocytes # 0.6 10^3/uL (0.2-0.9); Monocytes % 4.6 %; Neutrophils # 10.69 10^3/uL (1.8-7.7); Neutrophils % 81.9 %; Nucleated Red Blood Cells % 0 %; Platelet Count 187 10^3/cmm (157-399); Red Blood Count 5.28 10^6/uL (3.85-5.65); Red Cell Distribution Width 12.5 % (12.1-15.1); White Blood Count 13.04 10^3/uL (3.29-11.43)
[2023-06-12 20:15] LABS: Alanine Aminotransferase 17 U/L (0-33); Albumin Level 3.8 g/dL (3.5-5.2); Alkaline Phosphatase 89 U/L (35-105); Anion Gap 12.3 (5-19); Aspartate Amino Transferase 20 U/L (0-32); Blood Urea Nitrogen 21 mg/dL (8-23); Calcium 8.6 mg/dL (8.5-10.5); Carbon Dioxide 30 mmol/L (22-29); Chloride 99 mmol/L (98-107); Globulin 2.8 g/dL (1.3-4.6); Glucose 132 mg/dL (65-115); Osmolality Calculated 289 mOsm/kg (285-295); Potassium 4.3 mmol/L (3.5-5.1); Sodium 137 mmol/L (136-145); Total Bilirubin 0.2 mg/dL (0.15-1.2); Total Protein 6.6 g/dL (6.6-8.7)
--- NOTE | 2023-06-12 20:39 | PC.NURSE ---
pt discharge delayed due to ride being over an hour away.
== END 2023-06-12 22:10 | disposition home or self-care (01) ==
PROVIDERS: Emergency Provider Emergency Medicine; PCP Family Medicine
DX: R55 Syncope and collapse (principal); Z79.82 Long term (current) use of aspirin; Z87.891 Personal history of nicotine dependence; J44.9 Chronic obstructive pulmonary disease, unspecified; I10 Essential (primary) hypertension
CPT/HCPCS: 70450; 70496; 70498; 71045; 73030; 73521; 80053; 85025; 93005; 96374; 99285; J0360; J8597; Q9967

== ENCOUNTER 2023-07-08 11:55 | Outpatient (CLI) | payer OTHER, MEDICAID, SELFPAY ==
--- NOTE | 2023-07-08 12:00 | MM_ITS ---
WS: [id number] BILATERAL 3D TOMOSYNTHESIS DIGITAL SCREENING MAMMOGRAPHY WITH CAD CLINICAL INFORMATION: SCREENING HISTORY: Screening mammogram. No current complaints. COMPARISON: 2022 TECHNIQUE: Bilateral CC and MLO views. FINDINGS: Scattered fibroglandular densities bilaterally. No suspicious focal mass, asymmetry, calcifications, or architectural distortion. No evidence of malignancy. Vascular calcification. Incidental benign will cifications bilaterally. Biopsy marker RIGHT breast with adjacent nodule measuring 6 mm IMPRESSION: MM/[place] [id number] BI-RADS: 2-Benign FOLLOW UP: 1 Year Follow-up Recommend return to annual screening mammography.
== END 2023-07-08 11:56 | disposition home or self-care (01) ==
LOC: MOBLMAM 12:01
PROVIDERS: PCP Family Medicine; Visit Provider Family Medicine
DX: Z12.31 Encounter for screening mammogram for malignant neoplasm of breast (principal)
CPT/HCPCS: 77063; 77067

== ENCOUNTER → 2023-08-20 09:37 | Outpatient (BNVA) | payer OTHER, MEDICAID, SELFPAY | PROVIDERS: PCP Family Medicine; Visit Provider Specialist | DX: R26.9 Unspecified abnormalities of gait and mobility (principal); G24.3 Spasmodic torticollis; G37.9 Demyelinating disease of central nervous system, unspecified; I95.1 Orthostatic hypotension | CPT/HCPCS: 64616; 99214 ==

== ENCOUNTER 2023-08-27 00:12 | Observation (INO) | payer OTHER, MEDICAID, SELFPAY ==
[2023-08-27] VITALS (10 sets, daily range): BP systolic 137–165; BP diastolic 58–78; PULSE 68–109; RESP 15–24; TEMP 36.4–36.8; O2SAT 94–98; BMI 25.7
--- NOTE | 2023-08-27 00:15 | CTR_ITS ---
PROCEDURE INFORMATION: Exam: CT Head Without Contrast Exam date and time: 08/27/2023 12:50 AM Age: 78 years old Clinical indication: Walking, difficulty; Additional info: Weakness TECHNIQUE: Imaging protocol: Computed tomography of the head without contrast. Radiation optimization: All CT scans at this facility use at least one of these dose optimization techniques: automated exposure control; mA and/or kV adjustment per patient size (includes targeted exams where dose is matched to clinical indication); or iterative reconstruction. COMPARISON: CT angio headneck* [id number] 06/12/2023 6:27 PM RADIATION DOSE METRICS: Total DLP (mGy-cm): 1031.2 FINDINGS: Brain: There are bilateral periventricular white matter and centrum semiovale hypodensities consistent chronic ischemic small vessel disease. No recent infarct, intracranial bleed or intracranial mass. Cerebral ventricles: No ventriculomegaly. Paranasal sinuses: Visualized sinuses are unremarkable. No fluid levels. Mastoid air cells: Visualized mastoid air cells are well aerated. Bones: Unremarkable. No acute fracture. Soft tissues: Unremarkable. Vasculature: There are vascular calcifications. CT/CT head wo con* [id number] IMPRESSION: No large territorial infarct or intracranial bleed.
--- NOTE | 2023-08-27 00:15 | XRR_ITS ---
PROCEDURE INFORMATION: Exam: XR Chest Exam date and time: 08/27/2023 12:37 AM Age: 78 years old Clinical indication: Other: Weakness TECHNIQUE: Imaging protocol: Radiologic exam of the chest. Views: 1 view. COMPARISON: CR XR chest 1V portable [id number] 06/12/2023 7:16 PM FINDINGS: Tubes, catheters and devices: Left chest wall device. Lungs: Unremarkable. No consolidation. Pleural spaces: Unremarkable. No pleural effusion. No pneumothorax. Heart/Mediastinum: Unremarkable. No cardiomegaly. Bones/joints: Post sternotomy. Mild degenerative disease of bilateral acromioclavicular joints. XR/XR chest 1V portable [id number] IMPRESSION: No acute cardiopulmonary process.
--- NOTE | 2023-08-27 00:17 | ED_ITS ---
HPI - Fall 2 General: Chief Complaint: Fall Stated Complaint: multiple falls Time Seen by Provider: 08/27/23 00:12 Source: patient and EMS Mode of arrival: EMS Limitations: no limitations History of Present Illness: 78-year-old female who states that she h as multiple falls and is very weak and cannot walk. She actually just been discharged from [facility] states she been home for 3 hours and fell and could not get up. EMS states they run on her multiple times for the same thing. She denies any pain or injuries Associated symptoms-after fall: Denies abdominal pain, chest pain, headache(s) or neck pain Review of Systems 2 Const: Reports: malaise; Denies: fever(s), chills, body aches or change in appetite Eyes: Denies: blurry vision or eye discomfort ENMT: Denies: throat pain or dental pain Card: Denies: chest pain Resp: Denies: dyspnea GI: Denies: abdominal pain, nausea, vomiting or diarrhea Musc: Denies: neck pain or back pain Skin/Breast: Denies: rash Neuro: Denies: headache(s) PFSH ED 2 PFSH: Medical History Orthostatic hypotension Tardive dyskinesia DNR (do not resuscitate) Hypercholesterolemia Chronic obstructive pulmonary disease, unspecified Labyrinthitis Backache Bipolar affective disorder Arthropathy, unspecified HTN (hypertension) RLS (restless legs syndrome) Sleep apnea Peripheral vertigo Irritable bowel syndrome Aortic stenosis, severe Surgical History History of nasal surgery Status post aortic valve replacement with bioprosthetic valve History of abdominal hysterectomy H/O foot surgery H/O eye surgery H/O oral surgery Hx of cholecystectomy History of appendectomy Family History Other Hypertension Social History Smoking and tobacco/nicotine status: former use of tobacco/nicotine Quit status (tobacco/nicotine): has quit using Year quit tobacco: 1979 - ciggs x 6 Years Second hand smoke exposure: No Alcohol intake: never Substance/Drug Use: never Caregiver/support person: Yes Lives independently: Yes Household members: none Housing: House Marital status: / Current occupational status: retired and disabled Pets and animals: Yes Pets & animals: dog(s) Do you think of yourself as: Straight/Heterosexual Current gender identity: Female Physical Exam 2 Const: COMMON NORMALS: patient oriented x3 HENMT: COMMON NORMALS: normocephalic and atraumatic HEAD & SCALP: n ormocephalic and atraumatic Eye: COMMON NORMALS: Equal, round and reactive pupils present and EOMs intact bilaterally PUPIL: Yes Equal, round and reactive pupils present Neck/C-Spine: COMMON NORMALS: full ROM and supple Chest: COMMONS NORMALS: normal inspection of the chest and normal palpation of entire chest wall Resp: COMMON NORMALS: normal respiratory effort, No retractions, No use of accessory muscles and clear to auscultation bilaterally AUSCULTATION: clear to auscultation bilaterally Cardio: COMMON NORMALS: regular rate, regular rhythm and No murmurs present (Cardio) RATE: regular rate RHYTHM: regular rhythm GI: COMMON NORMALS: Normal to inspection, nondistended, normoactive bowel sounds present, Soft to palpation, non-tender and no masses PALPATION: Yes Soft to palpation Extremity: COMMON NORMALS: normal to inspection and full ROM Neuro: COMMON NORMALS: patient oriented x3, moves all extremities and no focal motor deficits Psych: COMMON NORMALS: mental status grossly normal, Normal thought process present and cooperative THOUGHT PROCESS: Normal thought process present Skin: COMMON NORMALS: no rashes or lesions noted and no wounds GENERAL SKIN EXAM: no rashes or lesions noted Course 2 Vital Signs: Vital signs: Vital Signs Temperature 97.9 F 08/27/23 00:12 Pulse Rate 83 08/27/23 01:06 Respiratory Rate 18 08/27/23 01:06 Blood Pressure 147/59 08/27/23 01:06 Pulse Oximetry 97 08/27/23 01:06 Oxygen Delivery Me thod Room Air 08/27/23 01:06 MDM - Fall Medical Decision Making Patient presents with generalized weakness along with multiple falls she has been admitted recently as well EMS states they have to run on her feel that this is multiple times a week. Patient is agreeable to admission as she states she feels like she needs [facility] patient placement due to not being able to take care of herself anymore Medical Records I reviewed the patient's medical records. Lab Data I reviewed the patient's lab results. 08/27/23 00:27 08/27/23 00:27 Radiology Impressions Chest X-Ray 08/27/23 00:15 IMPRESSION: No acute cardiopulmonary process. Head CT 08/27/23 00:15 IMPRESSION: No large territorial infarct or intracranial bleed. Laboratory Results WBC 10.44 10^3/uL (3.29-11.43) 08/27/23 00: RBC 4.63 10^6/uL (3.85-5.65) 08/27/23 00:27 Hgb 13.80 g/dL (11.27-16.99) 08/27/23 00: Hct 42.5 % (36-47) 08/27/23 00: MCV 91.8 fl (85-98) 08/27/23 00: MCH 29.8 pg (27-33) 08/27/23 00: MCHC 32.5 g/dL (30-55) 08/27/23 00: RDW 14.0 % (12.1-15.1) 08/27/23 00: Plt Count 154 10^3/cmm (157-399) L 08/27/23 00: MPV 9.9 fL (7.4-10.4) 08/27/23 00: Neut % (Auto) 67.7 % 08/27/23 00: Lymph % (Auto) 16.7 % 08/27/23 00:27 Lea % (Auto) 11.9 % 08/27/23 00:27 Eos % (Auto) 2.4 % 08/27/23 00:27 Baso % (Auto) 0.7 % 08/27/23 00:27 Neut # (Auto) 7.08 10^3/uL (1.8-7.7) 08/27/23 00: Lymph # (Auto) 1.7 10^3/uL (0.8-4.8) 08/27/23 00:27 Lea # (Auto) 1.2 10^3/uL (0.2-0.9) H 08/27/23 00:27 Eos # (Auto) 0.3 10^3/uL (0.0-0.8) 08/27/23 00:27 Baso # (Auto) 0.1 10^3/uL (0.0-0.1) 08/27/23 00: Nucleated RBC % (auto) 0 % 08/27/23 00: Nucleated RBCs # 0.0 /100WBC 08/27/23 00:27 Sodium 136 mmol/L (136-145) 08/27/23 00: Potassium 4.0 mmol/L (3.5-5.1) 08/27/23: Chloride 99 mmol/L (98-107) 08/27/23 00: Carbon Dioxide 27 mmol/L (22-29) 08/27/23 00: Anion Gap 14.0 (5-19) 08/27/23: BUN 17 mg/dL (8-23) 08/27/23 00: Creatinine 1.3 mg/dL (0.5-0.9) H 08/27/23 00:27 GFR Calculation Not Reportable 08/27/23 00: Glucose 108 mg/dL (65-115) 08/27/23 00: POC Glucose 110 mg/dL (70-110) 08/27/23 00:59 Calculated Osmolality 284 mOsm/kg (285-295) L 08/27/23: Calcium 9.1 mg/dL (8.5-10.5) 08/27/23 00: Total Bilirubin 0.8 mg/dL (0.15-1.2) 08/27/23 00: AST 31 U/L (0-32) 08/27/23: ALT 23 U/L (0-33) 08/27/23 00: Alkaline Phosphatase 73 U/L (35-105) 08/27/23 00:27 Total Protein 6.8 g/dL (6.6-8.7) 08/27/23: Albumin 3.9 g/dL (3.5-5.2) 08/27/23 00: Globulin 2.9 g/dL (1.3-4.6) 08/27/23 00:27 Urine Color Yellow (Yellow) 08/27/23 00:42 Urine Appearance Clear (CLEAR) 08/27/23 00:42 Urine pH 5 (5-7) 08/27/23 00:42 Ur Specific [place] 1.005 (1.005-1.030) 08/27/23 00:42 Urine Protein Neg (Negative) 08/27/23 00:42 Urine Glucose (UA) Norm (Normal) 08/27/23 00:42 Urine Ketones Negative (Negative) 08/27/23 00:42 Urine Blood Neg (Negative) 08/27/23 00:42 Urine Nitrate Negative (Negative) 08/27/23 00:42 Urine Bilirubin Neg (Negative) 08/27/23 00:42 Urine Urobilinogen Neg mg/dL (Negative) 08/27/23 00:42 Ur Leukocyte Esterase Negative (Negative) 08/27/23 00:42 All radiology interpretation(s) finalized by discharge Discharge Plan Discharge Patient Disposition: Admitted As Inpatient Clinical Impression: Generalized weakness, Multiple falls Condition: Stable Prescriptions: No Action omeprazole 20 mg capsule,delayed release(DR/EC) 20 mg PO DAILY onabotulinumtoxinA 100 unit recon soln SUBCUT Austedo 6 mg tablet 6 mg PO BID diclofenac sodium 3 % gel 1 applic topical BID azelastine 137 mcg (0.1 %) aerosol,spray 1 spray intranasal BID PRN Rx Instructions: administer into each nostril prednisone 5 mg tablet 5 mg PO DIRECTED Rx Instructions: see taper instructions zinc gluconate 50 mg tablet 50 mg PO DAILY cefdinir 300 mg capsule 300 mg PO Q12H lisinopril 10 mg tablet 10 mg PO DAILY levocetirizine 5 mg tablet 5 mg PO DAILY Qty: 90 1RF Austedo TD Titratn Pk (Wk 1-2) 6 mg (14)- 9 mg (14) tablets,dose pack See Rx Instructions PO PER PKG DIR Qty: 28 0RF Rx Instructions: PO PER PKG DIR ropinirole 0.25 mg tablet See Rx Instructions .ROUTE .COMPLEX Qty: 180 3RF Dose Instruction: TAKE 1 TABLET BY MOUTH TWICE DAILY Rx Instructions: TAKE 1 TABLET BY MOUTH TWICE DAILY metoprolol succinate 25 mg tablet extended release 24 hr See Rx Instructions .ROUTE .COMPLEX Qty: 90 3RF Dose Instruction: TAKE 1 TABLET BY MOUTH DAILY Rx Instructions: TAKE 1 TABLET BY MOUTH DAILY Botox 100 unit recon soln See Rx Instructions .ROUTE .COMPLEX Qty: 2 0RF Dose Instruction: inject 125 units intramuscularly ONCE - 25 units right sternomastoid, 60 units right trapezius, 20 units right side genioglossus, 20 units LEFT side genioglossus Rx Instructions: 200u IM once; Right sternomastoid 60u, right trapezius 60u, 20u genioglossus on each side, 20u on each semispinalis. Aspir-81 81 mg Tablet,Delayed Release (Dr/Ec) 81 mg PO DAILY Hold Instructions: Resume on 12/23/19. Rx Instructions: medication on pts discharge paperwork from [facility] meclizine 25 mg tablet 25 mg PO BID PRN (Reason: dizziness) Qty: 20 0RF Referrals: Mandeep Madrigal MD [Primary Care Provider] - Coding Level of Care Code ED Atm Mechanic for 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
[2023-08-27 00:33] LABS: Basophils # 0.1 10^3/uL (0.0-0.1); Basophils % 0.7 %; Eosinophils # 0.3 10^3/uL (0.0-0.8); Eosinophils % 2.4 %; Hematocrit 42.5 % (36-47); Lymphocytes # 1.7 10^3/uL (0.8-4.8); Lymphocytes % 16.7 %; Mean Corpuscular HGB Conc 32.5 g/dL (30-55); Mean Corpuscular Hemoglobin 29.8 pg (27-33); Mean Corpuscular Volume 91.8 fl (85-98); Mean Platelet Volume 9.9 fL (7.4-10.4); Monocytes # 1.2 10^3/uL (0.2-0.9); Monocytes % 11.9 %; Neutrophils # 7.08 10^3/uL (1.8-7.7); Neutrophils % 67.7 %; Nucleated Red Blood Cells % 0 %; Platelet Count 154 10^3/cmm (157-399); Red Blood Count 4.63 10^6/uL (3.85-5.65); White Blood Count 10.44 10^3/uL (3.29-11.43)
[2023-08-27 00:46] LABS: Add Urine Microscopic? NO; Charge for UA Resulting for Rev
[2023-08-27 00:49] LABS: Bilirubin Urine Neg (Negative); Blood Urine Neg (Negative); Glucose Urine UA Norm (Normal); Ketones Urine Negative (Negative); Leukocyte Esterase Urine Negative (Negative); Nitrate Urine Negative (Negative); Protein Urine Neg (Negative); Specific Gravity, Urine 1.005 (1.005-1.030); Urine Appearance Clear (CLEAR); Urine Color Yellow (Yellow); Urobilinogen Urine Neg (Negative); pH Urine 5 (5-7)
[2023-08-27 00:54] LABS: Alanine Aminotransferase 23 U/L (0-33); Albumin Level 3.9 g/dL (3.5-5.2); Alkaline Phosphatase 73 U/L (35-105); Aspartate Amino Transferase 31 U/L (0-32); Blood Urea Nitrogen 17 mg/dL (8-23); Calcium 9.1 mg/dL (8.5-10.5); Carbon Dioxide 27 mmol/L (22-29); Chloride 99 mmol/L (98-107); Creatinine Clr Calc Pharmacy 33.5632; Globulin 2.9 g/dL (1.3-4.6); Glucose 108 mg/dL (65-115); Osmolality Calculated 284 mOsm/kg (285-295); Sodium 136 mmol/L (136-145); Total Bilirubin 0.8 mg/dL (0.15-1.2); Total Protein 6.8 g/dL (6.6-8.7)
--- NOTE | 2023-08-27 00:59 | ECG_ITS ---
[facility] Test Date: 2023-08-27 Pat Name: Nancy Brasher Department: Room: Gender: Female Legal Instructor: : 1945 Requested By: Christina Armendariz Order Number: [id number] Gregory MD: Zarina Pride M.D. Measurements Intervals [place] Rate: 88 P: 53 IL: 139 QRS: -60 QRSD: 124 T: 70 QT: 402 QTc: 487 Interpretive Statements SINUS RHYTHM WITH OCCASIONAL SUPRAVENTRICULAR PREMATURE COMPLEXES POSSIBLE LEFT ATRIAL ENLARGEMENT [-0.1mV P-WAVE IN V1/V2] RIGHT BUNDLE BRANCH BLOCK [120+ ms QRS DURATION, UPRIGHT V1, 40+ ms S IN I/aVL/V4/V5/V6] LEFT ANTERIOR FASCICULAR BLOCK [QRS AXIS <= -45, QR IN I, RS IN II] POSSIBLE LEFT VENTRICULAR HYPERTROPHY [VOLTAGE CRITERIA PLUS LAE OR QRS WIDENING] Compared to ECG 06/12/2023 18:39:37 Left anterior fascicular block now present Left-axis deviation no longer present Electronically Signed On 08-27-2023 22:57:38 CDT by Zarina Pride M.D. [email or web address]
[2023-08-27] MEDS: sodium chloride 0.9% 1,000 ML 999 ML IV (01:06)
[2023-08-27 01:07] LABS: Glucose Point of Care 110 mg/dL (70-110)
--- NOTE | 2023-08-27 01:57 | P.HP_ITS ---
Providers/Chief Complaint 2 Admitting Physician: Elkin Mayers MD Primary Care Provider: Mandeep Madrigal MD Chief Complaint: multiple falls History of Present Illness Nancy Brasher is a 78 year old female with a past medical history significant for cervical dystonia, neuroleptic induced tardive dyskinesia, recurrent mechanical falls due to gait disorder, cerebrovascular accident, COPD, hypertension, and aortic valve replacement who presents to the emergency department via EMS with mechanical fall and generalized weakness. Patient has a known history of recurrent falls due to gait disorder. She also states this past Thursday she developed nausea and vomiting followed by diffuse cramps. She had some trouble calling 911. She eventually was able to. She was taken to [facility] where she was diagnosed with acute stroke. She is unsure what type of stroke she had but states that she was just treated medically. She is unsure if she has residual deficits from the stroke. She was discharged to home yesterday but only home about 3 hours when she fell and could not get back up. She called EMS and presented to our emergency department. She denies other alleviating or aggravating factors. Denies chest pain, shortness of breath, nausea or emesis. Review of Systems 2 Narrative: A complete review of systems was obtained and is negative except as stated in HPI. Medications/Allergies Home Medications Medication Instructions Recorded Confirmed Last Taken Type aspirin 81 mg tablet,delayed 81 mg PO DAILY 12/13/19 08/20/23 Unknown History release (Aspir-) omeprazole 20 mg capsule,delayed 20 mg PO DAILY 07/04/20 08/20/23 Unknown History release onabotulinumtoxinA 100 unit SUBCUT Tardive Dyskinesia 11/20/20 08/20/23 Unknown History solution for injection deutetrabenazine 6 mg tablet 6 mg PO BID 02/07/21 08/20/23 Unknown History (Austedo) diclofenac sodium 3 % topical gel 1 applic topical BID 05/23/21 08/20/23 Unknown History azelastine 137 mcg (0.1 %) nasal 1 spray intranasal BID PRN 02/20/22 08/20/23 Unknown History spray aerosol levocetirizine 5 mg tablet 5 mg PO DAILY #90 tabs 04/23/22 08/20/23 Unknown Rx deutetrabenazine 6 mg (14)-9 mg See Rx Instructions PO PER PKG DIR 10/24/22 08/20/23 Unknown Rx (14) tablets in a dose pack #28 ea (Austedo Tardive Dys Titratn Pk (Week 1-2)) prednisone 5 mg tablet 5 mg PO DIRECTED 11/24/22 08/20/23 Unknown History cefdinir 300 mg capsule 300 mg PO Q12H 12/25/22 08/20/23 Unknown History lisinopril 10 mg tablet 10 mg PO DAILY 12/25/22 08/20/23 Unknown History zinc gluconate 50 mg tablet 50 mg PO DAILY 01/05/23 08/20/23 Unknown History ropinirole 0.25 mg tablet See Rx Instructions .Route 03/03/23 08/20/23 Unknown Rx .COMPLEX #180 tabs metoprolol succinate 25 mg See Rx Instructions .Route 05/05/23 08/20/23 Unknown Rx tablet,extended release 24 hr .COMPLEX #90 tabs meclizine 25 mg tablet 25 mg PO BID PRN dizziness #20 tabs 06/12/23 08/20/23 Unknown Rx onabotulinumtoxinA 100 unit See Rx Instructions .Route 08/10/23 08/20/23 Unknown Rx solution for injection (Botox) .COMPLEX #2 ea Allergies Allergy/AdvReac Type Severity Reaction Status Date / Time No Known Drug Allergies Allergy Unknown Verified 08/27/23 00:17 PFSH Acute 2 PFSH: Medical History Orthostatic hypotension Tardive dyskinesia DNR (do not resuscitate) Hypercholesterolemia Chronic obstructive pulmonary disease, unspecified Labyrinthitis Backache Bipolar affective disorder Arthropathy, unspecified HTN (hypertension) RLS (restless legs syndrome) Sleep apnea Peripheral vertigo Irritable bowel syndrome Aortic stenosis, severe Surgical History History of nasal surgery Status post aortic valve replacement with bioprosthetic valve History of abdominal hysterectomy H/O foot surgery H/O eye surgery H/O oral surgery Hx of cholecystectomy History of appendectomy Family History Other Hypertension Social History Smoking and tobacco/nicotine status: former use of tobacco/nicotine Quit status (tobacco/nicotine): has quit using Year quit tobacco: 1979 - ciggs x 6 Years Second hand smoke exposure: No Alcohol intake: never Substance/Drug Use: never Caregiver/support person: Yes Lives independently: Yes Household members: none Housing: House Marital status: / Current occupational status: retired and disabled Pets and animals: Yes Pets & animals: dog(s) Do you think of yourself as: Straight/Heterosexual Current gender identity: Female Vitals/I&O/Wt Last Vital Signs Temp 97.9 F 08/27/23 00:12 Pulse 83 08/27/23 01:06 Resp 18 08/27/23 01:06 BP 147/59 08/27/23 01:06 Pulse Ox 97 08/27/23 01:06 O2 Del Method Room Air 08/27/23 01:06 Weight last 48 hrs Weight 65.771 kg Physical Exam 2 Narrative: General: Patient is awake. Tardive dyskinesia present. Head: Normocephalic. Atraumatic. EOM intact. Neck: No JVD. Cardiovascular: RRR. No gallops. No murmurs. No peripheral edema. Lungs: Clear to auscultation, no use of accessory muscles, no crackles or wheezes. Skin: No jaundice. No rashes. Abdomen: Normal bowel sounds, abdomen soft and nontender. Genito Urinary: Genital exam not performed since complaints not related. Rectal: Rectal exam not performed since no symptoms indicated blood loss. Extremities: No cyanosis or clubbing. Musculoskeletal: No swollen or erythematous joints. Neurological: Moves all 4 extremities. Speech is mildly dysarthric. Gait not observed. Data 08/27/23 00:27 08/27/23 00:27 A&P Assessment and plan (1) Multiple falls: Patient with recurrent mechanical falls She is unable to care for self and her current condition Will request physical and Occupational Therapy evaluation Case management evaluation, anticipate postacute care Fall precautions (2) CVA (cerebral vascular accident): Patient reports recent stroke on Thursday treated at [facility] Will request records to be obtained Therapy is going to evaluate the patient, speech therapy may be beneficial to Qualifiers: CVA mechanism: other Qualified Code(s): I63.89 - Other cerebral infarction (3) HTN (hypertension): Waiting for home medication list to be updated, prior list shows lisinopril and metoprolol Qualifiers: Hypertension type: essential hypertension Qualified Code(s): I10 - Essential (primary) hypertension (4) Status post aortic valve replacement with bioprosthetic valve: Waiting for home medication list to be updated, prior list shows aspirin (5) Demyelinating disease of central nervous system: Follows with neurology, Dr Jin (6) Chronic obstructive pulmonary disease, unspecified: Not in acute exacerbation Qualifiers: COPD type: unspecified COPD Qualified Code(s): J44.9 - Chronic obstructive pulmonary disease, unspecified Plan DVT prophylaxis: Lovenox Attestations 2 Medical Necessity Statement*: Patient referred presents with recurrent mechanical falls and inability to care for self and current condition with expected hospitalization not to cross 2 midnights for therapy evaluation and supportive care. Coding Level of Care Code Acute Code for Chg Fwd Diagnoses Multiple falls R29.6 Cerebrovascular accident (CVA) due to other mechanism I63.89 CVA mechanism: other Essential hypertension I10 Hypertension type: essential hypertension Status post aortic valve replacement with bioprosthetic valve Z95.3 Demyelinating disease of central nervous system G37.9 Chronic obstructive pulmonary disease, unspecified COPD type J44.9 COPD type: unspecified COPD
[2023-08-27] MEDS: enoxaparin 40 mg/0.4 mL Syringe SUBCUT (08:02)
--- NOTE | 2023-08-27 08:28 | PC.PHAR ---
MEDICATIONS VERIFIED WITH PT. SEVERAL MEDS HAVE DOSAGE CHANGES. UNABLE TO VERIFY WITH MAIL ORDER PHARMACY.
[2023-08-27 18:24] LABS: Iron 77 ug/dL (37-145); Percent Saturation 27.1 % (20-50); Thyroid Stimulating Hormone 2.32 uIU/mL (0.27-4.20); Total Iron Binding Capacity 284 mcg/dl; Unsaturated Iron Binding 207 ug/dL (112-347); Vitamin B12 713 pg/mL (232-1245)
[2023-08-28] VITALS: BP 136/79; PULSE 108; RESP 20; TEMP 36.5; O2SAT 95
[2023-08-28 04:00] VITALS: BP 119/76; PULSE 101; RESP 18; TEMP 36.8; O2SAT 97
[2023-08-28] MEDS: acetaminophen 325 mg Tablet 650 MG PO (04:11)
[2023-08-28 05:44] LABS: Basophils # 0.1 10^3/uL (0.0-0.1); Basophils % 0.6 %; Eosinophils # 0.3 10^3/uL (0.0-0.8); Eosinophils % 3.8 %; Hematocrit 38.7 % (36-47); Lymphocytes # 1.6 10^3/uL (0.8-4.8); Mean Corpuscular HGB Conc 32.6 g/dL (30-55); Mean Corpuscular Hemoglobin 29.4 pg (27-33); Mean Corpuscular Volume 90.4 fl (85-98); Mean Platelet Volume 10.7 fL (7.4-10.4); Monocytes # 1.3 10^3/uL (0.2-0.9); Monocytes % 14.1 %; Neutrophils # 5.72 10^3/uL (1.8-7.7); Neutrophils % 63.2 %; Nucleated Red Blood Cells % 0 %; Platelet Count 144 10^3/cmm (157-399); Red Blood Count 4.28 10^6/uL (3.85-5.65); Red Cell Distribution Width 13.8 % (12.1-15.1); White Blood Count 9.05 10^3/uL (3.29-11.43)
[2023-08-28 06:05] LABS: Cholesterol 198 mg/dL (0-200); HDL Cholesterol 43 mg/dL (60-100); LDL Cholesterol Calculated 127 mg/dL (50-129); Magnesium 1.8 mg/dL (1.7-2.3); Triglycerides 142 mg/dL (0-150); VLDL Cholestrol Calculation 28 mg/dL (0-30)
[2023-08-28 06:06] LABS: Alanine Aminotransferase 32 U/L (0-33); Albumin Level 3.5 g/dL (3.5-5.2); Alkaline Phosphatase 68 U/L (35-105); Aspartate Amino Transferase 61 U/L (0-32); Blood Urea Nitrogen 16 mg/dL (8-23); Calcium 8.7 mg/dL (8.5-10.5); Carbon Dioxide 26 mmol/L (22-29); Chloride 104 mmol/L (98-107); Creatinine Clr Calc Pharmacy 40.4382; Globulin 2.5 g/dL (1.3-4.6); Glucose 109 mg/dL (65-115); Osmolality Calculated 290 mOsm/kg (285-295); Sodium 139 mmol/L (136-145); Total Bilirubin 0.5 mg/dL (0.15-1.2)
[2023-08-28 06:26] LABS: Estmated Average Glucose 123; Hemoglobin A1C 5.9 % (4.0-6.0)
[2023-08-28 06:35] LABS: Folate Level > 20.0 ng/mL (4.8-37.3)
[2023-08-28 07:41] VITALS: BP 148/70; PULSE 106; RESP 16; TEMP 36.6; O2SAT 92
--- NOTE | 2023-08-28 09:00 | PC.NURSE ---
This RN obtains shift report that pt has been complaining of left foot pain. Upon assessment, pt cannot move left foot d/t pain. Pain medication administered. Notifies Dr. Toscano. Xray ordered.
[2023-08-28] MEDS: aspirin 81 mg EC Tablet PO (09:26)
[2023-08-28] MEDS: ropinirole 0.25 mg Tablet PO (09:26)
[2023-08-28] MEDS: enoxaparin 40 mg/0.4 mL Syringe SUBCUT (09:26)
[2023-08-28] MEDS: lisinopril 5 mg Tablet PO (09:26)
[2023-08-28] MEDS: HYDROcodone-acetaminophen 5-325 mg Tablet 1 TAB PO ×2 (09:26→21:14)
[2023-08-28] MEDS: pantoprazole DR 40 mg Tablet PO (09:26)
[2023-08-28] MEDS: metoprolol succinate ER (24 HR) 25 mg Tablet PO (09:26)
--- NOTE | 2023-08-28 10:38 | XRR_ITS ---
PROCEDURE INFORMATION: Exam: XR Left Foot Exam date and time: 08/28/2023 11:41 AM Age: 78 years old Clinical indication: Left foot/great toe pain following Injury or trauma; Fall; Blunt trauma; Foot; Left TECHNIQUE: Imaging protocol: Radiologic exam of the left foot. Views: 1 or 2 views. COMPARISON: US soft tissue/extremity [id number] 12/05/2022 8:26 AM FINDINGS: Bones/joints: No obvious acute fracture identified. There is slight extension at the 2nd MTP joint and mild crossover toe deformity with 2nd toe partially superimposed over the great toe. This may indicate the presence of a plantar plate injury at the 2nd MTP joint. 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 Chronic DJD also noted IP joints. Soft tissues: Normal. XR/XR foot LT 2V [id number] IMPRESSION: 1. No acute fracture detected. 2. Radiographic findings suggest presence of 2nd MTP plantar plate injury. Please correlate clinically.
[2023-08-28 11:13] LABS: Uric Acid 7.5 mg/dL (2.4-5.7)
[2023-08-28 11:45] VITALS: BP 176/79; PULSE 86; RESP 16; TEMP 36.7; O2SAT 98
--- NOTE | 2023-08-28 13:39 | PC.NURSE ---
Pt takes Austedo at home for Tardive Dyskenesia. Ordered by Dr. Toscano for hospital administration; however, this medication is not in our pharmacy. Friend, Shelbie, is unable to bring home medication to hospital for administration. All local pharmacies ([place], [facility], [place], [place]) contacted to try to obtain this medication. Not available at these locations.
--- NOTE | 2023-08-28 15:36 | PM.PN ---
Subjective Subjective: No acute events overnight. Today morning patient laying comfortably in bed. Complaining of pain at the base of her great and second toe of the left foot. States she feels as if there is something stuck under the foot. Complaining of leg pain as a patient for many days. Denies any nausea, ting, headache. Blood pressure slightly elevated. Vitals/I&O/Wt Last Vital Signs Temp 98.0 F 08/28/23 11:45 Pulse 86 08/28/23 11:45 Resp 16 08/28/23 11:45 BP 176/79 08/28/23 11:45 Pulse Ox 98 08/28/23 11:45 O2 Del Method Room Air 08/28/23 11:45 08/28/23 08/28/23 08/28/23 06:59 14:59 22:59 Intake Total 0 / 1280 360 / 360 Balance 0 / 1280 360 / 360 Weight last 48 hrs Weight 68.583 kg Weight 66.224 kg Weight 65.913 kg Weight 65.771 kg Physical Exam Narrative: General: Patient is awake. Tardive dyskinesia present. Head: Normocephalic. Atraumatic. EOM intact. Neck: No JVD. Cardiovascular: RRR. No gallops. No murmurs. No peripheral edema. Lungs: Clear to auscultation, no use of accessory muscles, no crackles or wheezes. Skin: No jaundice. No rashes. Abdomen: Normal bowel sounds, abdomen soft and nontender. Genito Urinary: Genital exam not performed since complaints not related. Rectal: Rectal exam not performed since no symptoms indicated blood loss. Extremities: No cyanosis or clubbing. Musculoskeletal: No swollen or erythematous joints. Neurological: Moves all 4 extremities. Speech is mildly dysarthric. Gait not observed. Data 08/28/23 05:20 08/28/23 05:20 A&P Assessment and plan (1) Multiple falls: Patient with recurrent mechanical falls. Recent stroke treated at [facility] with tenecteplase for the last 1 week. Does have history of tardive dyskinesia. She is unable to care for self and her current condition Continue with PT and OT evaluation and management. Patient lives by herself and has had multiple falls in the last few weeks likely in setting of CVA and tardive dyskinesia and is unable to take care of herself anymore. She is at a higher risk of multiple falls by herself. Case management alerted. Possible transfer to SNF for further management and care. Patient is agreeable. Fall precautions. (2) CVA (cerebral vascular accident): Patient reports recent stroke on Thursday treated at [facility]. Treated with tenecteplase. Appreciate records from [facility]. PT OT and speech therapy. MRI brain. Continue with home dose of aspirin. Appreciated lipid panel. Start on atorvastatin 20 mg nightly. Qualifiers: CVA mechanism: other Qualified Code(s): I63.89 - Other cerebral infarction (3) HTN (hypertension): Goal blood pressure less than 140/90 mmHg. Blood pressure elevated. Heart rate elevated. Takes metoprolol 25 mg daily at home along with lisinopril 5 mg daily. Increase metoprolol to 50 mg twice daily. Increase lisinopril to 20 mg daily. Will uptitrate as for goal blood pressures. Qualifiers: Hypertension type: essential hypertension Qualified Code(s): I10 - Essential (primary) hypertension (4) Status post aortic valve replacement with bioprosthetic valve: Continue with home dose of aspirin. Last echocardiogram from June 2022 showed an EF of 75%, grade 1 diastolic dysfunction, bioprosthetic aortic valve with peak gradient of 32 mmHg and PASP of 42 mmHg, concentric LVH. (5) Demyelinating disease of central nervous system: Follows with neurology, Dr Jin. Patient takes Austedo at home. Unfortunately not available in pharmacy. Will try to see if they can arrange medication from patient's home. (6) Chronic obstructive pulmonary disease, unspecified: Not in acute exacerbation Qualifiers: COPD type: unspecified COPD Qualified Code(s): J44.9 - Chronic obstructive pulmonary disease, unspecified (7) Foot pain, left: Has chronic deformity of the second toe. Check foot x-ray to rule out acute fracture. Check uric acid levels. Depending on the results we will consult podiatry. Patient does have history of chronic restless leg syndrome. Continue with home dose of Requip and tizanidine. Continue with [place] 5 mg every 6 hours as needed. Plan DVT prophylaxis: Lovenox Regular diet Protonix for PUD prophylaxis Discharge plan from prior to discharge to SNF for further rehabitation as above. Attestations Medical Necessity Statement*: Requires further hospitalization for management of recurrent falls in a patient with history of tardive dyskinesia, recent stroke post tenecteplase while safe discharge planning is sought Diagnoses Multiple falls R29.6 Cerebrovascular accident (CVA) due to other mechanism I63.89 CVA mechanism: other Essential hypertension I10 Hypertension type: essential hypertension Status post aortic valve replacement with bioprosthetic valve Z95.3 Demyelinating disease of central nervous system G37.9 Chronic obstructive pulmonary disease, unspecified COPD type J44.9 COPD type: unspecified COPD Foot pain, left M79.672
[2023-08-28 16:00] VITALS: BP 170/72; PULSE 67; RESP 16; TEMP 36.8; O2SAT 97
[2023-08-28] MEDS: lisinopril 10 mg Tablet PO (16:05)
[2023-08-28 20:00] VITALS: BP 158/70; PULSE 94; RESP 18; TEMP 37.1; O2SAT 96
[2023-08-28] MEDS: atorvastatin 40 mg Tablet 20 MG PO (21:14)
[2023-08-28] MEDS: metoprolol tartrate 50 mg Tablet PO (21:14)
[2023-08-29] VITALS (7 sets, daily range): BP systolic 127–163; BP diastolic 54–85; PULSE 67–87; RESP 15–18; TEMP 36.4–36.8; O2SAT 91–97
[2023-08-29 06:04] LABS: Basophils # 0.1 10^3/uL (0.0-0.1); Basophils % 0.6 %; Eosinophils # 0.3 10^3/uL (0.0-0.8); Eosinophils % 3.8 %; Hematocrit 37.8 % (36-47); Lymphocytes # 2.1 10^3/uL (0.8-4.8); Lymphocytes % 24.1 %; Mean Corpuscular HGB Conc 32.3 g/dL (30-55); Mean Corpuscular Volume 92.9 fl (85-98); Mean Platelet Volume 10.2 fL (7.4-10.4); Monocytes # 1.4 10^3/uL (0.2-0.9); Monocytes % 15.6 %; Neutrophils # 4.81 10^3/uL (1.8-7.7); Neutrophils % 55.1 %; Nucleated Red Blood Cells % 0 %; Platelet Count 149 10^3/cmm (157-399); Red Blood Count 4.07 10^6/uL (3.85-5.65); Red Cell Distribution Width 13.9 % (12.1-15.1); White Blood Count 8.72 10^3/uL (3.29-11.43)
[2023-08-29 06:24] LABS: Alanine Aminotransferase 31 U/L (0-33); Albumin Level 3.2 g/dL (3.5-5.2); Alkaline Phosphatase 70 U/L (35-105); Anion Gap 13.3 (5-19); Aspartate Amino Transferase 49 U/L (0-32); Blood Urea Nitrogen 18 mg/dL (8-23); Calcium 8.7 mg/dL (8.5-10.5); Carbon Dioxide 26 mmol/L (22-29); Chloride 103 mmol/L (98-107); Creatinine Clr Calc Pharmacy 40.3884; Globulin 2.7 g/dL (1.3-4.6); Glucose 105 mg/dL (65-115); Osmolality Calculated 288 mOsm/kg (285-295); Potassium 4.3 mmol/L (3.5-5.1); Sodium 138 mmol/L (136-145); Total Bilirubin 0.4 mg/dL (0.15-1.2); Total Protein 5.9 g/dL (6.6-8.7)
[2023-08-29 06:25] LABS: Magnesium 1.9 mg/dL (1.7-2.3)
--- NOTE | 2023-08-29 09:30 | MRR_ITS ---
PROCEDURE INFORMATION: Exam: MR Head Without Contrast Exam date and time: 08/29/2023 2:42 PM Age: 78 years old Clinical indication: Malaise or fatigue and speech disturbance; Slurred speech; Additional info: Reccurent falls, recent stroke, not done 08/26, date changed to 08/27 TECHNIQUE: Imaging protocol: Magnetic resonance imaging of the head without contrast. COMPARISON: CT head wo con* [id number] 08/27/2023 12:50 AM FINDINGS: Brain: No areas of reduced diffusion to suggest acute infarct. Moderate nonspecific periventricular and subcortical T2 hyperintensity which may be related to microvascular ischemic changes. Cerebral ventricles: Normal. No ventriculomegaly. Bones: Unremarkable. Paranasal sinuses: Well aerated. No fluid levels. Mastoid air cells: Normal as visualized. No mastoid effusion. Orbital cavities: Orbits and globes are intact. Soft tissues: Unremarkable. MR/MR head wo con* [id number] IMPRESSION: No acute intracranial abnormality.
[2023-08-29] MEDS: ropinirole 0.25 mg Tablet PO (09:34)
[2023-08-29] MEDS: enoxaparin 40 mg/0.4 mL Syringe SUBCUT (09:34)
[2023-08-29] MEDS: metoprolol tartrate 50 mg Tablet PO ×2 (09:34→20:48)
[2023-08-29] MEDS: lisinopril 20 mg Tablet PO (09:34)
[2023-08-29] MEDS: pantoprazole DR 40 mg Tablet PO (09:35)
[2023-08-29] MEDS: aspirin 81 mg EC Tablet PO (09:35)
--- NOTE | 2023-08-29 14:31 | PC.NURSE ---
halter monitor present upon admission. Removed prior to MRI and placed in Pyxis.
--- NOTE | 2023-08-29 16:36 | PM.PN ---
Subjective Subjective: No acute events overnight. Patient has remained hemodynamically stable and afebrile. Today morning seen sitting up in chair. Denies any nausea, vomiting, headache. Vitals/I&O/Wt Last Vital Signs Temp 97.8 F 08/29/23 16:00 Pulse 87 08/29/23 16:00 Resp 16 08/29/23 16:00 BP 138/85 08/29/23 16:00 Pulse Ox 96 08/29/23 16:00 O2 Del Method Room Air 08/29/23 16:00 08/29/23 08/29/23 08/29/23 06:59 14:59 22:59 Intake Total 480 / 480 Balance 480 / 480 Weight last 48 hrs Weight 68.402 kg Weight 68.583 kg Physical Exam Narrative: General: Patient is awake. Tardive dyskinesia present. Head: Normocephalic. Atraumatic. EOM intact. Neck: No JVD. Cardiovascular: RRR. No gallops. No murmurs. No peripheral edema. Lungs: Clear to auscultation, no use of accessory muscles, no crackles or wheezes. Skin: No jaundice. No rashes. Abdomen: Normal bowel sounds, abdomen soft and nontender. Genito Urinary: Genital exam not performed since complaints not related. Rectal: Rectal exam not performed since no symptoms indicated blood loss. Extremities: No cyanosis or clubbing. Musculoskeletal: No swollen or erythematous joints. Neurological: Moves all 4 extremities. Speech is mildly dysarthric. Gait not observed. Data 08/29/23 05:55 08/29/23 05:55 A&P Assessment and plan (1) Multiple falls: Patient with recurrent mechanical falls. Recent stroke treated at [facility] with tenecteplase for the last 1 week. Does have history of tardive dyskinesia. She is unable to care for self and her current condition Continue with PT and OT evaluation and management. Patient lives by herself and has had multiple falls in the last few weeks likely in setting of CVA and tardive dyskinesia and is unable to take care of herself anymore. She is at a higher risk of multiple falls by herself. Case management alerted. Possible transfer to SNF for further management and care. Patient is agreeable. Fall precautions. (2) CVA (cerebral vascular accident): Patient reports recent stroke on Thursday treated at [facility]. Treated with tenecteplase. Appreciate records from [facility]. PT OT and speech therapy. MRI brain. Continue with home dose of aspirin. Appreciated lipid panel. Start on atorvastatin 20 mg nightly. Qualifiers: CVA mechanism: other Qualified Code(s): I63.89 - Other cerebral infarction (3) HTN (hypertension): Goal blood pressure less than 140/90 mmHg. Blood pressure elevated. Heart rate elevated. Takes metoprolol 25 mg daily at home along with lisinopril 5 mg daily. Increase metoprolol to 50 mg twice daily. Increase lisinopril to 20 mg daily. Will uptitrate as for goal blood pressures. Qualifiers: Hypertension type: essential hypertension Qualified Code(s): I10 - Essential (primary) hypertension (4) Status post aortic valve replacement with bioprosthetic valve: Continue with home dose of aspirin. Last echocardiogram from June 2022 showed an EF of 75%, grade 1 diastolic dysfunction, bioprosthetic aortic valve with peak gradient of 32 mmHg and PASP of 42 mmHg, concentric LVH. (5) Demyelinating disease of central nervous system: Follows with neurology, Dr Jin. Patient takes Austedo at home. Unfortunately not available in pharmacy. Will try to see if they can arrange medication from patient's home. (6) Chronic obstructive pulmonary disease, unspecified: Not in acute exacerbation Qualifiers: COPD type: unspecified COPD Qualified Code(s): J44.9 - Chronic obstructive pulmonary disease, unspecified (7) Foot pain, left: Has chronic deformity of the second toe. Appreciate foot x-ray uric acid levels. Discussed in detail with podiatry team. Advised no restriction in weightbearing and cam boot during ambulation. Continue with home dose of Requip and tizanidine as needed Continue with [place] 5 mg every 6 hours as needed. Plan DVT prophylaxis: Lovenox Regular diet Protonix for PUD prophylaxis Plan for the day: Blood pressure is better. Continue with increased dose of metoprolol and lisinopril. Care discussed in detail with podiatry about left foot pain and x-ray findings. Advise no restriction and weightbearing, cam boot. Unfortunately not able to get patient's outpatient Austedo. Will see if somebody from home can get the medication. Awaiting MRI. Continue with aspirin, statin. Discharge plan from prior to discharge to SNF for further rehabitation as above. Attestations Medical Necessity Statement*: Requires further hospitalization while safe discharge planning is sought in a patient with history of recurrent falls secondary to stroke and tardive dyskinesia Diagnoses Multiple falls R29.6 Cerebrovascular accident (CVA) due to other mechanism I63.89 CVA mechanism: other Essential hypertension I10 Hypertension type: essential hypertension Status post aortic valve replacement with bioprosthetic valve Z95.3 Demyelinating disease of central nervous system G37.9 Chronic obstructive pulmonary disease, unspecified COPD type J44.9 COPD type: unspecified COPD Foot pain, left M79.672
[2023-08-29] MEDS: atorvastatin 40 mg Tablet 20 MG PO (20:48)
[2023-08-30 03:52] VITALS: BP 148/70; PULSE 60; RESP 16; TEMP 36.9; O2SAT 94
[2023-08-30 07:51] LABS: Magnesium 1.9 mg/dL (1.7-2.3)
[2023-08-30 07:54] VITALS: BP 151/74; PULSE 83; RESP 18; TEMP 36.8; O2SAT 93
[2023-08-30] MEDS: lisinopril 20 mg Tablet PO (09:50)
[2023-08-30] MEDS: pantoprazole DR 40 mg Tablet PO (09:50)
[2023-08-30] MEDS: aspirin 81 mg EC Tablet PO (09:50)
[2023-08-30] MEDS: enoxaparin 40 mg/0.4 mL Syringe SUBCUT (09:50)
[2023-08-30] MEDS: ropinirole 0.25 mg Tablet PO (09:51)
[2023-08-30] MEDS: metoprolol tartrate 50 mg Tablet PO ×2 (09:52→20:47)
[2023-08-30 12:00] VITALS: BP 148/68; PULSE 85; RESP 18; TEMP 36.8; O2SAT 95
--- NOTE | 2023-08-30 14:06 | PM.PN ---
Subjective Subjective: No new complaints. Sitting comfortably in chair. Denies any nausea, ting, headache. Working with physical therapy. Has remained hemodynamically stable and afebrile. Vitals/I&O/Wt Last Vital Signs Temp 98.3 F 08/30/23 12:00 Pulse 85 08/30/23 12:00 Resp 18 08/30/23 12:00 BP 148/68 08/30/23 12:00 Pulse Ox 95 08/30/23 12:00 O2 Del Method Room Air 08/30/23 03:52 08/29/23 08/30/23 08/30/23 22:59 06:59 14:59 Intake Total 240 / 720 480 / 480 Balance 240 / 720 480 / 480 Weight last 48 hrs Weight 67.767 kg Weight 68.402 kg Physical Exam Narrative: General: Patient is awake. Tardive dyskinesia present. Head: Normocephalic. Atraumatic. EOM intact. Neck: No JVD. Cardiovascular: RRR. No gallops. No murmurs. No peripheral edema. Lungs: Clear to auscultation, no use of accessory muscles, no crackles or wheezes. Skin: No jaundice. No rashes. Abdomen: Normal bowel sounds, abdomen soft and nontender. Genito Urinary: Genital exam not performed since complaints not related. Rectal: Rectal exam not performed since no symptoms indicated blood loss. Extremities: No cyanosis or clubbing. Musculoskeletal: No swollen or erythematous joints. Neurological: Moves all 4 extremities. Speech is mildly dysarthric. Gait not observed. Data 08/29/23 05:55 08/29/23 05:55 A&P Assessment and plan (1) Multiple falls: Patient with recurrent mechanical falls. Recent stroke treated at [facility] with tenecteplase for the last 1 week. Does have history of tardive dyskinesia. She is unable to care for self and her current condition Continue with PT and OT evaluation and management. Patient lives by herself and has had multiple falls in the last few weeks likely in setting of CVA and tardive dyskinesia and is unable to take care of herself anymore. She is at a higher risk of multiple falls by herself. Case management alerted. Possible transfer to SNF for further management and care. Patient is agreeable. Fall precautions. (2) CVA (cerebral vascular accident): Patient reports recent stroke on Thursday treated at [facility]. Treated with tenecteplase. Appreciate records from [facility]. PT OT and speech therapy. MRI brain. Continue with home dose of aspirin. Appreciated lipid panel. Start on atorvastatin 20 mg nightly. Qualifiers: CVA mechanism: other Qualified Code(s): I63.89 - Other cerebral infarction (3) HTN (hypertension): Goal blood pressure less than 140/90 mmHg. Blood pressure elevated. Heart rate elevated. Takes metoprolol 25 mg daily at home along with lisinopril 5 mg daily. Increase metoprolol to 50 mg twice daily. Increase lisinopril to 20 mg daily. Will uptitrate as for goal blood pressures. Qualifiers: Hypertension type: essential hypertension Qualified Code(s): I10 - Essential (primary) hypertension (4) Status post aortic valve replacement with bioprosthetic valve: Continue with home dose of aspirin. Last echocardiogram from June 2022 showed an EF of 75%, grade 1 diastolic dysfunction, bioprosthetic aortic valve with peak gradient of 32 mmHg and PASP of 42 mmHg, concentric LVH. (5) Demyelinating disease of central nervous system: Follows with neurology, Dr Jin. Patient takes Austedo at home. Unfortunately not available in pharmacy. Will try to see if they can arrange medication from patient's home. (6) Chronic obstructive pulmonary disease, unspecified: Not in acute exacerbation Qualifiers: COPD type: unspecified COPD Qualified Code(s): J44.9 - Chronic obstructive pulmonary disease, unspecified (7) Foot pain, left: Has chronic deformity of the second toe. Appreciate foot x-ray uric acid levels. Discussed in detail with podiatry team. Advised no restriction in weightbearing and cam boot during ambulation. Continue with home dose of Requip and tizanidine as needed Continue with [place] 5 mg every 6 hours as needed. Plan DVT prophylaxis: Lovenox Regular diet Protonix for PUD prophylaxis Plan for the day: Appreciate MRI. No new complaints. Continue with current medications including statins, aspirin. Blood pressure stable. Will consult with psychiatry to see if can change Austedo for tardive dyskinesia to something different while patient is inpatient as medication is not currently available. Awaiting placement. Lab holiday today. Repeat labs in AM. Discharge plan from prior to discharge to SNF for further rehabitation as above. Attestations Medical Necessity Statement*: Requires further hospitalization while safe discharge planning and sought in a patient with high risk of fall given recent stroke and history of tardive dyskinesia. Convert to inpatient. Diagnoses Multiple falls R29.6 Cerebrovascular accident (CVA) due to other mechanism I63.89 CVA mechanism: other Essential hypertension I10 Hypertension type: essential hypertension Status post aortic valve replacement with bioprosthetic valve Z95.3 Demyelinating disease of central nervous system G37.9 Chronic obstructive pulmonary disease, unspecified COPD type J44.9 COPD type: unspecified COPD Foot pain, left M79.672
[2023-08-30 16:00] VITALS: BP 147/71; PULSE 75; RESP 16; TEMP 36.7; O2SAT 94
[2023-08-30 19:56] VITALS: BP 131/76; PULSE 79; RESP 17; TEMP 36.7; O2SAT 97
[2023-08-30] MEDS: atorvastatin 40 mg Tablet 20 MG PO (20:47)
[2023-08-31] VITALS (7 sets, daily range): BP systolic 122–156; BP diastolic 63–77; PULSE 66–82; RESP 16–18; TEMP 36.7–37.3; O2SAT 92–98
[2023-08-31 06:52] LABS: Basophils # 0.1 10^3/uL (0.0-0.1); Basophils % 0.8 %; Eosinophils # 0.3 10^3/uL (0.0-0.8); Eosinophils % 3.1 %; Hematocrit 40.9 % (36-47); Lymphocytes % 20.4 %; Mean Corpuscular HGB Conc 33.3 g/dL (30-55); Mean Corpuscular Hemoglobin 29.9 pg (27-33); Mean Corpuscular Volume 89.9 fl (85-98); Mean Platelet Volume 10.4 fL (7.4-10.4); Monocytes # 1.4 10^3/uL (0.2-0.9); Monocytes % 14.5 %; Neutrophils # 5.98 10^3/uL (1.8-7.7); Neutrophils % 60.3 %; Nucleated Red Blood Cells % 0 %; Platelet Count 204 10^3/cmm (157-399); Red Blood Count 4.55 10^6/uL (3.85-5.65); Red Cell Distribution Width 13.8 % (12.1-15.1); White Blood Count 9.93 10^3/uL (3.29-11.43)
[2023-08-31 07:08] LABS: Alanine Aminotransferase 35 U/L (0-33); Albumin Level 3.5 g/dL (3.5-5.2); Alkaline Phosphatase 81 U/L (35-105); Anion Gap 16.4 (5-19); Aspartate Amino Transferase 34 U/L (0-32); Blood Urea Nitrogen 18 mg/dL (8-23); Calcium 9.1 mg/dL (8.5-10.5); Carbon Dioxide 25 mmol/L (22-29); Chloride 101 mmol/L (98-107); Creatinine Clr Calc Pharmacy 44.2405; Globulin 3.1 g/dL (1.3-4.6); Glucose 120 mg/dL (65-115); Osmolality Calculated 289 mOsm/kg (285-295); Potassium 4.4 mmol/L (3.5-5.1); Sodium 138 mmol/L (136-145); Total Bilirubin 0.5 mg/dL (0.15-1.2); Total Protein 6.6 g/dL (6.6-8.7)
[2023-08-31] MEDS: enoxaparin 40 mg/0.4 mL Syringe SUBCUT (08:56)
[2023-08-31] MEDS: pantoprazole DR 40 mg Tablet PO (08:56)
[2023-08-31] MEDS: lisinopril 20 mg Tablet PO (08:56)
[2023-08-31] MEDS: ropinirole 0.25 mg Tablet PO (08:56)
[2023-08-31] MEDS: aspirin 81 mg EC Tablet PO (08:56)
[2023-08-31] MEDS: metoprolol tartrate 50 mg Tablet PO ×2 (08:56→21:21)
--- NOTE | 2023-08-31 09:31 | PC.CHAP ---
Pastoral Care Encounter/Spiritual Assessment Type of Contact [] Declined esthetician/owner visit [] Patient/Family/Request visit [] Outpatient visit [] Follow-up visit [] Physician referral [] Code/Alert [x] Routine visit [] Staff referral [] Actively dying [] Patient sleeping [] Family support [] [] Out of room [] Palliative care [] [] Receiving care in room [] Pre-surgical visit [] Trauma [] Long length of stay [] ICU visit [] Other: Relational/Emotional Strength [] Patient feels connected with others/family/visitors/staff [] Distress [] Loneliness/isolation [] Abandonment Spirituality of Patient [x] Person of Maile [] Attends Sikh of their [place]ile [x] Believes in Prayer [] Reads Bible or Caodaism materials [] There are Spiritual issues to be addressed Senior Planner Interventions [x] Prayer [x] Active listening [] Non-anxious presence [] Spiritual/emotional support [] Crisis/trauma care [] Spiritual counseling [] Bereavement support [] Provided bereavement packet [x] Provided Bible/devotional materials [] Provided toy/stuffed animal, coloring book to patient or family member [] Provided Communion [] Anointing/[place] [] Salvation [x] Completed spiritual assessment [] Other: Impact on Illness or Injury [] Angry [] Fearful [] Anxious [] Often cries [] Exhaustion [] Unable to work [] Unable to attend latter-day [] Unable to walk/stand [] Unable to read [] Unable to drive [] Unable to eat/drink [] Unable to sleep [] Unable to be with family [] Patient intubated [] Other: Summary Time spent with patient 5 min
[2023-08-31] MEDS: atorvastatin 40 mg Tablet 20 MG PO (21:21)
--- NOTE | 2023-08-31 22:40 | PM.PN ---
Subjective Subjective: She reports she is doing okay. Working with physical therapy. Awaiting approval for rehabilitation. Vitals/I&O/Wt Last Vital Signs Temp 98.2 F 08/31/23 19:49 Pulse 79 08/31/23 19:49 Resp 17 08/31/23 19:49 BP 155/77 08/31/23 19:49 Pulse Ox 97 08/31/23 19:49 O2 Del Method Room Air 08/31/23 19:49 08/31/23 08/31/23 08/31/23 06:59 14:59 22:59 Intake Total 720 / 720 960 / 1680 Balance 720 / 720 960 / 1680 Weight last 48 hrs Weight 67.784 kg Weight 67.767 kg Physical Exam Narrative: Sitting up in a chair. Const: COMMON NORMALS: patient oriented x3 and alert GENERAL APPEARANCE: cooperative ORIENTATION/CONSCIOUSNESS: Yes awake HENMT: COMMON NORMALS: oropharynx normal Neck/C-Spine: COMMON NORMALS: no JVD Resp: COMMON NORMALS: normal respiratory effort and clear to auscultation bilaterally AUSCULTATION: clear to auscultation bilaterally Cardio: COMMON NORMALS: no JVD, regular rhythm, S1 normal heart sound present, S2 normal heart sound present and No murmurs present (Cardio) RHYTHM: regular rhythm HEART SOUNDS: S1 normal heart sound present and S2 normal heart sound present GI: COMMON NORMALS: Normal to inspection, nondistended, normoactive bowel sounds present, Soft to palpation and non-tender PALPATION: Yes Soft to palpation Extremity: COMMON NORMALS: no joint enlargement and no pedal edema Neuro: COMMON NORMALS: patient oriented x3 and moves all extremities SENSORIUM/ORIENTATION: Yes alert OTHER: Intention tremor, choreiform movements. Otherwise she is awake and alert, follows directions. I do not appreciate obvious facial droop. Visual [place] full to confrontation. No visual extinction. FNF unremarkable. No upper or lower extremity drift. Sensory symmetrical. Skin: COMMON NORMALS: no rashes or lesions noted GENERAL SKIN EXAM: no rashes or lesions noted Data 08/31/23 06:37 08/31/23 06:37 A&P Assessment and plan (1) Multiple falls: Reviewed vitals, CBC, CMP, no new symptoms on neuroexam. Working with PT. Discussed with physical therapist, discussed with case management. As per discussion with patient, awaiting approval for rehabilitation. Patient with recurrent mechanical falls. Recent stroke treated at [facility] with tenecteplase for the last 1 week. Does have history of tardive dyskinesia. She is unable to care for self and her current condition Continue with PT and OT evaluation and management. Patient lives by herself and has had multiple falls in the last few weeks likely in setting of CVA and tardive dyskinesia and is unable to take care of herself anymore. She is at a higher risk of multiple falls by herself. Case management alerted. Possible transfer to SNF for further management and care. Patient is agreeable. Fall precautions. (2) CVA (cerebral vascular accident): Reviewed medications, continue aspirin, atorvastatin. Monitor blood pressures. She wanted to continue current antihypertensives. Continue metoprolol. Lisinopril. Patient reports recent stroke on Thursday treated at [facility]. Treated with tenecteplase. Appreciate records from [facility]. PT OT and speech therapy. MRI brain. Continue with home dose of aspirin. Appreciated lipid panel. Start on atorvastatin 20 mg nightly. Qualifiers: CVA mechanism: other Qualified Code(s): I63.89 - Other cerebral infarction (3) HTN (hypertension): Monitor blood pressures. She wanted to continue current antihypertensives. Continue metoprolol. Lisinopril. Continue to cardiac diet. Goal blood pressure less than 140/90 mmHg. Blood pressure elevated. Heart rate elevated. Takes metoprolol 25 mg daily at home along with lisinopril 5 mg daily. Increase metoprolol to 50 mg twice daily. Increase lisinopril to 20 mg daily. Will uptitrate as for goal blood pressures. Qualifiers: Hypertension type: essential hypertension Qualified Code(s): I10 - Essential (primary) hypertension (4) Status post aortic valve replacement with bioprosthetic valve: Continue with home dose of aspirin. Last echocardiogram from June 2022 showed an EF of 75%, grade 1 diastolic dysfunction, bioprosthetic aortic valve with peak gradient of 32 mmHg and PASP of 42 mmHg, concentric LVH. (5) Demyelinating disease of central nervous system: Follows with neurology, Dr Jin. Patient takes Austedo at home. Unfortunately not available in pharmacy. Will try to see if they can arrange medication from patient's home. (6) Chronic obstructive pulmonary disease, unspecified: Not in acute exacerbation Qualifiers: COPD type: unspecified COPD Qualified Code(s): J44.9 - Chronic obstructive pulmonary disease, unspecified (7) Foot pain, left: Renew hydrocodone. Has chronic deformity of the second toe. Appreciate foot x-ray uric acid levels. Discussed in detail with podiatry team. Advised no restriction in weightbearing and cam boot during ambulation. Continue with home dose of Requip and tizanidine as needed Continue with [place] 5 mg every 6 hours as needed. Plan DVT prophylaxis: Lovenox Regular diet Protonix for PUD prophylaxis Discharge plan from prior to discharge to SNF for further rehabitation as above. Attestations Medical Necessity Statement*: Continue hospitalization pending approval for placement to rehabilitation. and High MDM includes amount and/or complexity of data reviewed/ordered [ resulted lab(s)/test(s) and other healthcare professional discussion] as documented Diagnoses Multiple falls R29.6 Cerebrovascular accident (CVA) due to other mechanism I63.89 CVA mechanism: other Essential hypertension I10 Hypertension type: essential hypertension Status post aortic valve replacement with bioprosthetic valve Z95.3 Demyelinating disease of central nervous system G37.9 Chronic obstructive pulmonary disease, unspecified COPD type J44.9 COPD type: unspecified COPD Foot pain, left M79.672
[2023-09-01 04:00] VITALS: BP 124/66; PULSE 75; RESP 16; TEMP 37.1; O2SAT 95
[2023-09-01 08:12] VITALS: BP 145/70; PULSE 77; RESP 18; TEMP 36.5; O2SAT 97
[2023-09-01] MEDS: metoprolol tartrate 50 mg Tablet PO ×2 (09:28→21:19)
[2023-09-01] MEDS: pantoprazole DR 40 mg Tablet PO (09:28)
[2023-09-01] MEDS: aspirin 81 mg EC Tablet PO (09:28)
[2023-09-01] MEDS: ropinirole 0.25 mg Tablet PO (09:28)
[2023-09-01] MEDS: enoxaparin 40 mg/0.4 mL Syringe SUBCUT (09:28)
[2023-09-01] MEDS: lisinopril 20 mg Tablet PO (09:28)
[2023-09-01 10:00] LABS: Basophils # 0.1 10^3/uL (0.0-0.1); Basophils % 0.7 %; Eosinophils # 0.3 10^3/uL (0.0-0.8); Eosinophils % 3.1 %; Hematocrit 42.2 % (36-47); Lymphocytes # 2.1 10^3/uL (0.8-4.8); Lymphocytes % 25.7 %; Mean Corpuscular Hemoglobin 29.5 pg (27-33); Mean Corpuscular Volume 92.3 fl (85-98); Mean Platelet Volume 11.3 fL (7.4-10.4); Monocytes # 1.2 10^3/uL (0.2-0.9); Monocytes % 15.4 %; Neutrophils # 4.39 10^3/uL (1.8-7.7); Neutrophils % 54.4 %; Nucleated Red Blood Cells % 0 %; Platelet Count 198 10^3/cmm (157-399); Red Blood Count 4.57 10^6/uL (3.85-5.65); Red Cell Distribution Width 13.9 % (12.1-15.1); White Blood Count 8.07 10^3/uL (3.29-11.43)
[2023-09-01 10:25] LABS: Alanine Aminotransferase 27 U/L (0-33); Albumin Level 3.2 g/dL (3.5-5.2); Alkaline Phosphatase 77 U/L (35-105); Aspartate Amino Transferase 29 U/L (0-32); Blood Urea Nitrogen 19 mg/dL (8-23); Calcium 8.8 mg/dL (8.5-10.5); Carbon Dioxide 26 mmol/L (22-29); Chloride 102 mmol/L (98-107); Creatinine Clr Calc Pharmacy 37.7545; Globulin 3.1 g/dL (1.3-4.6); Glucose 86 mg/dL (65-115); Osmolality Calculated 292 mOsm/kg (285-295); Sodium 140 mmol/L (136-145); Total Bilirubin 0.5 mg/dL (0.15-1.2); Total Protein 6.3 g/dL (6.6-8.7)
[2023-09-01 10:27] LABS: Anion Gap 16.8 (5-19); Potassium 4.8 mmol/L (3.5-5.1)
[2023-09-01 11:01] VITALS: BP 135/63; PULSE 70; RESP 18; TEMP 36.2; O2SAT 93
[2023-09-01 16:27] VITALS: BP 122/63; PULSE 73; RESP 18; TEMP 36.9; O2SAT 93
[2023-09-01 19:53] VITALS: BP 142/56; PULSE 74; RESP 18; TEMP 36.6; O2SAT 97
[2023-09-01] MEDS: atorvastatin 40 mg Tablet 20 MG PO (21:18)
--- NOTE | 2023-09-01 22:18 | P.PN_ITS ---
Subjective 2 Subjective: She denies additional new symptoms. Vitals/I&O/Wt Last Vital Signs Temp 97.8 F 09/01/23 19:53 Pulse 74 09/01/23 19:53 Resp 18 09/01/23 19:53 BP 142/56 09/01/23 19:53 Pulse Ox 97 09/01/23 19:53 O2 Del Method Room Air 09/01/23 19:53 09/01/23 09/01/23 09/01/23 06:59 14:59 22:59 Intake Total 120 / 1800 360 / 360 Balance 120 / 1800 360 / 360 Weight last 48 hrs Weight 46.323 kg Weight 67.784 kg Physical Exam 2 Narrative: Sitting up in a chair. Const: COMMON NORMALS: patient oriented x3 and alert GENERAL APPEARANCE: c ooperative ORIENTATION/CONSCIOUSNESS: Yes awake HENMT: COMMON NORMALS: oropharynx normal Neck/C-Spine: COMMON NORMALS: no JVD Resp: COMMON NORMALS: normal respiratory effort and clear to auscultation bilaterally AUSCULTATION: clear to auscultation bilaterally Cardio: COMMON NORMALS: no JVD, regular rhythm, S1 normal heart sound present, S2 normal heart sound present and No murmurs present (Cardio) RHYTHM: regular rhythm HEART SOUNDS: S1 normal heart sound present and S2 normal heart sound present GI: COMMON NORMALS: Normal to inspection, nondistended, normoactive bowel sounds present, Soft to palpation and non-tender PALPATION: Yes Soft to palpation Extremity: COMMON NORMALS: no joint enlargement and no pedal edema Neuro: COMMON NORMALS: patient oriented x3 and moves all extremities S ENSORIUM/ORIENTATION: Yes alert OTHER: Intention tremor, tardive dyskinesia with choreiform movements. Otherwise she is awake and alert, follows directions. I do not appreciate obvious facial droop. Visual [place] full to confrontation. No visual extinction. FNF unremarkable. No upper or lower extremity drift. Sensory symmetrical. Skin: COMMON NORMALS: no rashes or lesions noted GENERAL SKIN EXAM: no rashes or lesions noted Data 09/01/23 06:30 09/01/23 06:30 A&P Assessment and plan (1) Multiple falls: Discussed with telephonic case manager, reviewed vitals, CBC, CMP. She denies additional new symptoms today. Working physical therapy. Search and arrangements for rehabilitation underway for after discharge. She states absolutely cannot stop her tardive dyskinesia medication. Patient with recurrent mechanical falls. Recent stroke treated at [facility] with tenecteplase for the last 1 week. Does have history of tardive dyskinesia. She is unable to care for self and her current condition Continue with PT and OT evaluation and management. Patient lives by herself and has had multiple falls in the last few weeks likely in setting of CVA and tardive dyskinesia and is unable to take care of herself anymore. She is at a higher risk of multiple falls by herself. Case management alerted. Possible transfer to SNF for further management and care. Patient is agreeable. Fall precautions. (2) CVA (cerebral vascular accident): Continue aspirin, atorvastatin. Monitor blood pressures. She wanted to continue current antihypertensives. Continue metoprolol. Lisinopril. Patient reports recent stroke on Thursday treated at [facility]. Treated with tenecteplase. Appreciate records from [facility]. PT OT and speech therapy. MRI brain. Continue with home dose of aspirin. Appreciated lipid panel. Start on atorvastatin 20 mg nightly. Qualifiers: CVA mechanism: other Qualified Code(s): I63.89 - Other cerebral infarction (3) HTN (hypertension): Monitor blood pressures. She wanted to continue current antihypertensives. Continue metoprolol. Lisinopril. Continue to cardiac diet. Goal blood pressure less than 140/90 mmHg. Blood pressure elevated. Heart rate elevated. Takes metoprolol 25 mg daily at home along with lisinopril 5 mg daily. Here metoprolol to 50 mg twice daily. lisinopril to 20 mg daily. Qualifiers: Hypertension type: essential hypertension Qualified Code(s): I10 - Essential (primary) hypertension (4) Status post aortic valve replacement with bioprosthetic valve: Continue with home dose of aspirin. Last echocardiogram from June 2022 showed an EF of 75%, grade 1 diastolic dysfunction, bioprosthetic aortic valve with peak gradient of 32 mmHg and PASP of 42 mmHg, concentric LVH. (5) Demyelinating disease of central nervous system: Follows with neurology, Dr Jin. Patient takes Austedo at home. Unfortunately not available in pharmacy. Will try to see if they can arrange medication from patient's home. (6) Chronic obstructive pulmonary disease, unspecified: Not in acute exacerbation Qualifiers: COPD type: unspecified COPD Qualified Code(s): J44.9 - Chronic obstructive pulmonary disease, unspecified (7) Foot pain, left: Renew hydrocodone. Has chronic deformity of the second toe. Appreciate foot x-ray uric acid levels. Discussed in detail with podiatry team. Advised no restriction in weightbearing and cam boot during ambulation. Continue with home dose of Requip and tizanidine as needed Continue with [place] 5 mg every 6 hours as needed. Plan DVT prophylaxis: Lovenox Regular diet Protonix for PUD prophylaxis Discharge plan from prior to discharge to SNF for further rehabitation as above. Attestations 2 Medical Necessity Statement*: Continue hospitalization pending approval for placement to rehabilitation. and Moderate MDM includes amount and/or complexity of data reviewed/ordered [ resulted lab(s)/test(s), ordered lab(s)/test(s) and other healthcare professional discussion] as documented Diagnoses Multiple falls R29.6 Cerebrovascular accident (CVA) due to other mechanism I63.89 CVA mechanism: other Essential hypertension I10 Hypertension type: essential hypertension Status post aortic valve replacement with bioprosthetic valve Z95.3 Demyelinating disease of central nervous system G37.9 Chronic obstructive pulmonary disease, unspecified COPD type J44.9 COPD type: unspecified COPD Foot pain, left M79.672
[2023-09-01 23:43] VITALS: BP 132/69; PULSE 74; RESP 17; TEMP 36.6; O2SAT 93
[2023-09-02 04:00] VITALS: BP 158/76; PULSE 72; RESP 16; TEMP 36.4; O2SAT 92
[2023-09-02 06:07] LABS: Basophils # 0.1 10^3/uL (0.0-0.1); Basophils % 0.8 %; Eosinophils # 0.2 10^3/uL (0.0-0.8); Eosinophils % 3.3 %; Hematocrit 42.9 % (36-47); Lymphocytes % 27.7 %; Mean Corpuscular HGB Conc 32.4 g/dL (30-55); Mean Corpuscular Hemoglobin 29.8 pg (27-33); Mean Corpuscular Volume 92.1 fl (85-98); Mean Platelet Volume 10.4 fL (7.4-10.4); Monocytes % 13.5 %; Neutrophils # 3.91 10^3/uL (1.8-7.7); Neutrophils % 54.3 %; Nucleated Red Blood Cells % 0 %; Platelet Count 209 10^3/cmm (157-399); Red Blood Count 4.66 10^6/uL (3.85-5.65); Red Cell Distribution Width 13.7 % (12.1-15.1); White Blood Count 7.21 10^3/uL (3.29-11.43)
[2023-09-02 06:33] LABS: Alanine Aminotransferase 25 U/L (0-33); Albumin Level 3.3 g/dL (3.5-5.2); Alkaline Phosphatase 93 U/L (35-105); Anion Gap 17.2 (5-19); Aspartate Amino Transferase 23 U/L (0-32); Blood Urea Nitrogen 18 mg/dL (8-23); Calcium 9.1 mg/dL (8.5-10.5); Carbon Dioxide 24 mmol/L (22-29); Chloride 99 mmol/L (98-107); Creatinine Clr Calc Pharmacy 44.3312; Globulin 3.5 g/dL (1.3-4.6); Glucose 112 mg/dL (65-115); Osmolality Calculated 285 mOsm/kg (285-295); Potassium 4.2 mmol/L (3.5-5.1); Sodium 136 mmol/L (136-145); Total Bilirubin 0.4 mg/dL (0.15-1.2); Total Protein 6.8 g/dL (6.6-8.7)
[2023-09-02 07:51] VITALS: BP 141/68; PULSE 87; RESP 20; TEMP 36.4; O2SAT 96
[2023-09-02] MEDS: ropinirole 0.25 mg Tablet PO (09:49)
[2023-09-02] MEDS: lisinopril 20 mg Tablet PO (09:49)
[2023-09-02] MEDS: aspirin 81 mg EC Tablet PO (09:49)
[2023-09-02] MEDS: enoxaparin 40 mg/0.4 mL Syringe SUBCUT (09:49)
[2023-09-02] MEDS: metoprolol tartrate 50 mg Tablet PO ×2 (09:49→20:43)
[2023-09-02] MEDS: pantoprazole DR 40 mg Tablet PO (09:49)
[2023-09-02 12:18] VITALS: BP 130/64; PULSE 71; RESP 19; TEMP 36.5; O2SAT 95
--- NOTE | 2023-09-02 12:55 | PC.SOCIAL ---
IMM Update pg 2 of IMM updated and reviewed w/ patient. Copy provided and copy dated, initialed and placed in chart.
[2023-09-02 16:14] VITALS: BP 130/74; PULSE 78; RESP 18; TEMP 36.4; O2SAT 95
[2023-09-02 19:35] VITALS: BP 128/66; PULSE 77; RESP 19; TEMP 36.7; O2SAT 95
--- NOTE | 2023-09-02 19:41 | PM.PN ---
Subjective Subjective: He denies any additional symptoms, but overall has not felt quite as good today. Cannot pinpoint anything specific. Vitals/I&O/Wt Last Vital Signs Temp 98.0 F 09/02/23 19:35 Pulse 77 09/02/23 19:35 Resp 19 H 09/02/23 19:35 BP 128/66 09/02/23 19:35 Pulse Ox 95 09/02/23 19:35 O2 Del Method Room Air 09/02/23 16:14 09/02/23 09/02/23 09/02/23 06:59 14:59 22:59 Intake Total 120 / 480 600 / 600 240 / 840 Balance 120 / 480 600 / 600 240 / 840 Weight last 48 hrs Weight 68.084 kg Weight 46.323 kg Physical Exam Narrative: Sitting up in a chair. Const: COMMON NORMALS: patient oriented x3 and alert GENERAL APPEARANCE: cooperative ORIENTATION/CONSCIOUSNESS: Yes awake HENMT: COMMON NORMALS: oropharynx normal Neck/C-Spine: COMMON NORMALS: no JVD Resp: COMMON NORMALS: normal respiratory effort and clear to auscultation bilaterally AUSCULTATION: clear to auscultation bilaterally Cardio: COMMON NORMALS: no JVD, regular rhythm, S1 normal heart sound present, S2 normal heart sound present and No murmurs present (Cardio) RHYTHM: regular rhythm HEART SOUNDS: S1 normal heart sound present and S2 normal heart sound present GI: COMMON NORMALS: Normal to inspection, nondistended, normoactive bowel sounds present, Soft to palpation and non-tender PALPATION: Yes Soft to palpation Extremity: COMMON NORMALS: no joint enlargement and no pedal edema Neuro: COMMON NORMALS: patient oriented x3 and moves all extremities SENSORIUM/ORIENTATION: Yes alert OTHER: Intention tremor, tardive dyskinesia with choreiform movements. Otherwise she is awake and alert, follows directions. I do not appreciate obvious facial droop. Visual [place] full to confrontation. No visual extinction. FNF unremarkable. No upper or lower extremity drift. Sensory symmetrical. Skin: COMMON NORMALS: no rashes or lesions noted GENERAL SKIN EXAM: no rashes or lesions noted Data 09/02/23 06:01 09/02/23 06:01 A&P Assessment and plan (1) Multiple falls: Reviewed neurology note, discussed with her neurologist, there is not a good option available to switch for her tardive dyskinesia, consideration could be given for return to office for Botox injections. Consideration of resuming small dose of Abilify, however, this has been tried in the past unsuccessfully. Discussed with the patient she has discussed with her primary provider and they have decided to hold the medication and going to assisted resuming the medication afterwards. Hold [place] at discharge to assisted. She reports she is not feeling as well today, but cannot pinpoint any specific problems. Reviewed vitals, CBC, CMP. Discussed with case management coordinator. Patient with recurrent mechanical falls. Recent stroke treated at [facility] with tenecteplase for the last 1 week. Does have history of tardive dyskinesia. She is unable to care for self and her current condition Continue with PT and OT evaluation and management. Patient lives by herself and has had multiple falls in the last few weeks likely in setting of CVA and tardive dyskinesia and is unable to take care of herself anymore. She is at a higher risk of multiple falls by herself. Case management alerted. Possible transfer to SNF for further management and care. Patient is agreeable. Fall precautions. (2) CVA (cerebral vascular accident): Continue aspirin, atorvastatin. Monitor blood pressures. She wanted to continue current antihypertensives. Continue metoprolol. Lisinopril. Patient reports recent stroke on Thursday treated at [facility]. Treated with tenecteplase. Appreciate records from [facility]. PT OT and speech therapy. MRI brain. Continue with home dose of aspirin. Appreciated lipid panel. Start on atorvastatin 20 mg nightly. Qualifiers: CVA mechanism: other Qualified Code(s): I63.89 - Other cerebral infarction (3) HTN (hypertension): Monitor blood pressures. She wanted to continue current antihypertensives. Continue metoprolol. Lisinopril. Continue to cardiac diet. Goal blood pressure less than 140/90 mmHg. Blood pressure elevated. Heart rate elevated. Takes metoprolol 25 mg daily at home along with lisinopril 5 mg daily. Here metoprolol to 50 mg twice daily. lisinopril to 20 mg daily. Qualifiers: Hypertension type: essential hypertension Qualified Code(s): I10 - Essential (primary) hypertension (4) Status post aortic valve replacement with bioprosthetic valve: Continue with home dose of aspirin. Last echocardiogram from June 2022 showed an EF of 75%, grade 1 diastolic dysfunction, bioprosthetic aortic valve with peak gradient of 32 mmHg and PASP of 42 mmHg, concentric LVH. (5) Demyelinating disease of central nervous system: Follows with neurology, Dr Jin. Patient takes [place] at home. Unfortunately not available in pharmacy. Will try to see if they can arrange medication from patient's home. (6) Chronic obstructive pulmonary disease, unspecified: Not in acute exacerbation Qualifiers: COPD type: unspecified COPD Qualified Code(s): J44.9 - Chronic obstructive pulmonary disease, unspecified (7) Foot pain, left: Renew hydrocodone. Has chronic deformity of the second toe. Appreciate foot x-ray uric acid levels. Discussed in detail with podiatry team. Advised no restriction in weightbearing and cam boot during ambulation. Continue with home dose of Requip and tizanidine as needed Continue with [place] 5 mg every 6 hours as needed. Plan DVT prophylaxis: Lovenox Regular diet Protonix for PUD prophylaxis Discharge plan from prior to discharge to SNF for further rehabitation as above. Attestations Medical Necessity Statement*: Continue hospitalization pending approval for placement to rehabilitation. and Moderate MDM includes amount and/or complexity of data reviewed/ordered [ resulted lab(s)/test(s) and other healthcare professional discussion] and described risk of complication, morbidity or mortality of management as documented Diagnoses Multiple falls R29.6 Cerebrovascular accident (CVA) due to other mechanism I63.89 CVA mechanism: other Essential hypertension I10 Hypertension type: essential hypertension Status post aortic valve replacement with bioprosthetic valve Z95.3 Demyelinating disease of central nervous system G37.9 Chronic obstructive pulmonary disease, unspecified COPD type J44.9 COPD type: unspecified COPD Foot pain, left M79.672
[2023-09-02] MEDS: atorvastatin 40 mg Tablet 20 MG PO (20:43)
[2023-09-02 23:54] VITALS: BP 131/69; PULSE 81; RESP 18; TEMP 36.9; O2SAT 95
[2023-09-03 04:00] VITALS: BP 170/77; PULSE 68; RESP 18; TEMP 36.8; O2SAT 97
[2023-09-03 04:34] VITALS: BP 150/76
[2023-09-03 06:05] LABS: Basophils # 0.1 10^3/uL (0.0-0.1); Basophils % 1.1 %; Eosinophils # 0.2 10^3/uL (0.0-0.8); Eosinophils % 3.4 %; Hematocrit 39.6 % (36-47); Lymphocytes # 1.8 10^3/uL (0.8-4.8); Lymphocytes % 25.4 %; Mean Corpuscular HGB Conc 32.8 g/dL (30-55); Mean Corpuscular Hemoglobin 29.5 pg (27-33); Mean Platelet Volume 10.2 fL (7.4-10.4); Monocytes # 0.9 10^3/uL (0.2-0.9); Monocytes % 12.8 %; Neutrophils # 4.03 10^3/uL (1.8-7.7); Neutrophils % 56.6 %; Nucleated Red Blood Cells % 0 %; Platelet Count 198 10^3/cmm (157-399); Red Cell Distribution Width 13.6 % (12.1-15.1); White Blood Count 7.12 10^3/uL (3.29-11.43)
[2023-09-03 06:25] LABS: Alanine Aminotransferase 19 U/L (0-33); Albumin Level 3.4 g/dL (3.5-5.2); Alkaline Phosphatase 83 U/L (35-105); Anion Gap 13.5 (5-19); Aspartate Amino Transferase 18 U/L (0-32); Blood Urea Nitrogen 22 mg/dL (8-23); Carbon Dioxide 28 mmol/L (22-29); Chloride 101 mmol/L (98-107); Creatinine Clr Calc Pharmacy 40.7247; Globulin 2.9 g/dL (1.3-4.6); Glucose 119 mg/dL (65-115); Osmolality Calculated 290 mOsm/kg (285-295); Potassium 4.5 mmol/L (3.5-5.1); Sodium 138 mmol/L (136-145); Total Bilirubin 0.4 mg/dL (0.15-1.2); Total Protein 6.3 g/dL (6.6-8.7)
[2023-09-03 07:21] VITALS: BP 177/75; PULSE 72; RESP 17; TEMP 36.7; O2SAT 95
[2023-09-03] MEDS: ropinirole 0.25 mg Tablet PO (08:11)
[2023-09-03] MEDS: lisinopril 20 mg Tablet PO (08:11)
[2023-09-03] MEDS: aspirin 81 mg EC Tablet PO (08:12)
[2023-09-03] MEDS: pantoprazole DR 40 mg Tablet PO (08:12)
[2023-09-03] MEDS: metoprolol tartrate 50 mg Tablet PO (08:12)
[2023-09-03] MEDS: enoxaparin 40 mg/0.4 mL Syringe SUBCUT (08:12)
--- NOTE | 2023-09-03 11:42 | PM.DCS ---
Discharge Providers Date of Admission: 08/27/23 01:53 Date of Discharge: September 03, 2023 Attending Provider at Admission: Elkin Mayers MD Attending Provider at Discharge: Dileep Bajwa Primary Care Provider: Mandeep Madrigal MD Diagnoses at Discharge Discharge Diagnosis (1) Multiple falls: Status: Acute (2) CVA (cerebral vascular accident): Status: Acute Qualifiers: CVA mechanism: other Qualified Code(s): I63.89 - Other cerebral infarction (3) HTN (hypertension): Status: Acute Qualifiers: Hypertension type: essential hypertension Qualified Code(s): I10 - Essential (primary) hypertension (4) Status post aortic valve replacement with bioprosthetic valve: Status: Acute (5) Demyelinating disease of central nervous system: Status: Acute (6) Chronic obstructive pulmonary disease, unspecified: Status: Acute Qualifiers: COPD type: unspecified COPD Qualified Code(s): J44.9 - Chronic obstructive pulmonary disease, unspecified (7) Foot pain, left: Status: Acute Reason for Visit Reason for Visit: multiple falls Brief History: Nancy Brasher is a 78 year old female with a past medical history significant for cervical dystonia, neuroleptic induced tardive dyskinesia, recurrent mechanical falls due to gait disorder, cerebrovascular accident, COPD, hypertension, and aortic valve replacement who presents to the emergency department via EMS with mechanical fall and generalized weakness. Patient has a known history of recurrent falls due to gait disorder. She also states this past Thursday she developed nausea and vomiting followed by diffuse cramps. She had some trouble calling 911. She eventually was able to. She was taken to [facility] where she was diagnosed with acute stroke. She is unsure what type of stroke she had but states that she was just treated medically. She is unsure if she has residual deficits from the stroke. She was discharged to home yesterday but only home about 3 hours when she fell and could not get back up. She called EMS and presented to our emergency department. She denies other alleviating or aggravating factors. Denies chest pain, shortness of breath, nausea or emesis. Hospital Course Hospital Course She did receive tenecteplase after her stroke at [facility], presents with multiple falls, did not go to rehabilitation after hospitalization. During hospitalization here antihypertensives were adjusted. Lisinopril was increased to 20 mg. Metoprolol was increased to 50 mg. He was working with physical therapy, additional rehabilitation was advised. After further consideration of options and also discussing with her PCP she elected to hold tardive dyskinesia medication although no equivalent or better alternative unfortunately are available, as per discussion with her neurologist she may return to the office for consideration of Botox injections in the meantime. She was additionally advised to consider arrangements for medic alert button to help her call for help in case of injury or illness after return home as she lives alone. She is set up with follow-up with neurology in office. Please follow-up after stroke, reassess blood pressure control. Reassess tardive dyskinesia. Left foot pain was evaluated with foot x-ray, no acute fracture noted, though with visualized radiographic findings to suggest presence of second MTP plantar plate injury. Was advised no restriction and weightbearing, cam boot during ambulation. Physical Exam Narrative: Sitting up in bed, having lunch. Const: COMMON NORMALS: patient oriented x3 and alert GENERAL APPEARANCE: cooperative ORIENTATION/CONSCIOUSNESS: Yes awake HENMT: COMMON NORMALS: oropharynx normal Neck/C-Spine: COMMON NORMALS: no JVD Resp: COMMON NORMALS: normal respiratory effort and clear to auscultation bilaterally AUSCULTATION: clear to auscultation bilaterally Cardio: COMMON NORMALS: no JVD, regular rhythm, S1 normal heart sound present, S2 normal heart sound present and No murmurs present (Cardio) RHYTHM: regular rhythm HEART SOUNDS: S1 normal heart sound present and S2 normal heart sound present GI: COMMON NORMALS: Normal to inspection, nondistended, normoactive bowel sounds present, Soft to palpation and non-tender PALPATION: Yes Soft to palpation Extremity: COMMON NORMALS: no joint enlargement and no pedal edema Neuro: COMMON NORMALS: patient oriented x3 and moves all extremities SENSORIUM/ORIENTATION: Yes alert OTHER: Intention tremor, tardive dyskinesia with choreiform movements. Otherwise she is awake and alert, follows directions. I do not appreciate obvious facial droop. Visual [place] full to confrontation. No visual extinction. FNF unremarkable. No upper or lower extremity drift. Sensory symmetrical. Skin: COMMON NORMALS: no rashes or lesions noted GENERAL SKIN EXAM: no rashes or lesions noted Discharge Data Studies Completed and Pending Completed Studies During Hospitalization Category Date Time Status CT head wo con* [id number] Stat Cat Scan 08/27/23 00:15 Completed XR chest 1V portable [id number] Stat Exams 08/27/23 00:15 Completed XR foot LT 2V [id number] Routine Exams 08/28/23 10:38 Completed MR head wo con* [id number] Routine MRI 08/29/23 09:30 Completed Pending at discharge Category Date Time Status COVID [SARS Covid-2 Antigen] Routine Lab 09/03/23 10:31 Uncollected Radiology Impressions Chest X-Ray 08/27/23 00:15 IMPRESSION: No acute cardiopulmonary process. Head CT 08/27/23 00:15 IMPRESSION: No large territorial infarct or intracranial bleed. Foot X-Ray 08/28/23 10:38 IMPRESSION: 1. No acute fracture detected. 2. Radiographic findings suggest presence of 2nd MTP plantar plate injury. Please correlate clinically. Head MRI 08/29/23 09:30 IMPRESSION: No acute intracranial abnormality. Laboratory Results WBC 7.12 10^3/uL (3.29-11.43) 09/03/23 05:50 RBC 4.40 10^6/uL (3.85-5.65) 09/03/23 05:50 Hgb 13.00 g/dL (11.27-16.99) 09/03/23 05:50 Hct 39.6 % (36-47) 09/03/23 05:50 MCV 90.0 fl (85-98) 09/03/23 05:50 MCH 29.5 pg (27-33) 09/03/23 05:50 MCHC 32.8 g/dL (30-55) 09/03/23 05:50 RDW 13.6 % (12.1-15.1) 09/03/23 05:50 Plt Count 198 10^3/cmm (157-399) 09/03/23 05:50 MPV 10.2 fL (7.4-10.4) 09/03/23 05:50 Neut % (Auto) 56.6 % 09/03/23 05:50 Lymph % (Auto) 25.4 % 09/03/23 05:50 [place] % (Auto) 12.8 % 09/03/23 05:50 Eos % (Auto) 3.4 % 09/03/23 05:50 Baso % (Auto) 1.1 % 09/03/23 05:50 Neut # (Auto) 4.03 10^3/uL (1.8-7.7) 09/03/23 05:50 Lymph # (Auto) 1.8 10^3/uL (0.8-4.8) 09/03/23 05:50 [place] # (Auto) 0.9 10^3/uL (0.2-0.9) 09/03/23 05:50 Eos # (Auto) 0.2 10^3/uL (0.0-0.8) 09/03/23 05:50 Baso # (Auto) 0.1 10^3/uL (0.0-0.1) 09/03/23 05:50 Nucleated RBC % (auto) 0 % 09/03/23 05:50 Nucleated RBCs # 0.0 /100WBC 09/03/23 05:50 Sodium 138 mmol/L (136-145) 09/03/23 05:50 Potassium 4.5 mmol/L (3.5-5.1) 09/03/23 05:50 Chloride 101 mmol/L (98-107) 09/03/23 05:50 Carbon Dioxide 28 mmol/L (22-29) 09/03/23 05:50 Anion Gap 13.5 (5-19) 09/03/23 05:50 BUN 22 mg/dL (8-23) 09/03/23 05:50 Creatinine 1.1 mg/dL (0.5-0.9) H 09/03/23 05:50 GFR Calculation Not Reportable 09/03/23 05:50 Glucose 119 mg/dL (65-115) H 09/03/23 05:50 POC Glucose 110 mg/dL (70-110) 08/27/23 00:59 Estimat Average Glucose 123 08/28/23 05:20 Hemoglobin A1c 5.9 % (4.0-6.0) 08/28/23 05:20 Calculated Osmolality 290 mOsm/kg (285-295) 09/03/23 05:50 Uric Acid 7.5 mg/dL (2.4-5.7) H 08/28/23 05:20 Calcium 9.0 mg/dL (8.5-10.5) 09/03/23 05:50 Magnesium 1.9 mg/dL (1.7-2.3) 08/30/23 07:18 Iron 77 ug/dL (37-145) 08/27/23 00:27 TIBC 284 mcg/dl 08/27/23 00:27 % Saturation 27.1 % (20-50) 08/27/23 00:27 Unsat Iron Binding 207 ug/dL (112-347) 08/27/23 00:27 Total Bilirubin 0.4 mg/dL (0.15-1.2) 09/03/23 05:50 AST 18 U/L (0-32) 09/03/23 05:50 ALT 19 U/L (0-33) 09/03/23 05:50 Alkaline Phosphatase 83 U/L (35-105) 09/03/23 05:50 Total Protein 6.3 g/dL (6.6-8.7) L 09/03/23 05:50 Albumin 3.4 g/dL (3.5-5.2) L 09/03/23 05:50 Globulin 2.9 g/dL (1.3-4.6) 09/03/23 05:50 Triglycerides 142 mg/dL (0-150) 08/28/23 05:20 Cholesterol 198 mg/dL (0-200) 08/28/23 05:20 LDL Cholesterol, Calc 127 mg/dL (50-129) 08/28/23 05:20 Total VLDL Cholesterol 28 mg/dL (0-30) 08/28/23 05:20 HDL Cholesterol 43 mg/dL (60-100) L 08/28/23 05:20 Cholesterol/HDL Ratio 4.60 mg/dL (0.0-4.40) H 08/28/23 05:20 Vitamin B12 713 pg/mL (232-1245) 08/27/23 00:27 Folate > 20.0 ng/mL (4.8-37.3) 08/28/23 05:20 TSH 2.32 uIU/mL (0.27-4.20) 08/27/23 00:27 Urine Color Yellow (Yellow) 08/27/23 00:42 Urine Appearance Clear (CLEAR) 08/27/23 00:42 Urine pH 5 (5-7) 08/27/23 00:42 Ur Specific [place] 1.005 (1.005-1.030) 08/27/23 00:42 Urine Protein Neg (Negative) 08/27/23 00:42 Urine Glucose (UA) Norm (Normal) 08/27/23 00:42 Urine Ketones Negative (Negative) 08/27/23 00:42 Urine Blood Neg (Negative) 08/27/23 00:42 Urine Nitrate Negative (Negative) 08/27/23 00:42 Urine Bilirubin Neg (Negative) 08/27/23 00:42 Urine Urobilinogen Neg mg/dL (Negative) 08/27/23 00:42 Ur Leukocyte Esterase Negative (Negative) 08/27/23 00:42 Vitals Last Vital Signs Temp 98.0 F 09/03/23 07:21 Pulse 72 09/03/23 07:21 Resp 17 09/03/23 07:21 BP 177/75 09/03/23 07:21 Pulse Ox 95 09/03/23 07:21 O2 Del Method Room Air 09/03/23 07:21 Discharge Plan Discharge Patient Disposition: Xfer SNF Condition: Stable Prescriptions: New lisinopril 20 mg Tablet 20 mg PO DAILY Qty: 90 0RF atorvastatin 40 mg Tablet 20 mg PO BEDTIME Qty: 90 0RF Continued azelastine 137 mcg (0.1 %) aerosol,spray 1 spray intranasal BID PRN (Reason: allergies) Rx Instructions: administer into each nostril tizanidine 4 mg Tablet 4 mg PO TID PRN (Reason: muscle spasms) hydrocodone-acetaminophen 5-325 mg Tablet 1 tab PO Q6H PRN (Reason: Pain) omeprazole 40 mg Capsule,Delayed Release(Dr/Ec) 40 mg PO DAILY aspirin 81 mg Tablet,Delayed Release (Dr/Ec) 81 mg PO DAILY acyclovir 800 mg Tablet 800 mg PO DAILY diphenhydramine HCl 25 mg Tablet 25 mg PO BEDTIME hydroxyzine HCl 25 mg Tablet 25 mg PO BID PRN (Reason: Itching) Systane (PF) 0.4-0.3 % [place] 1 drp OPHTHALMIC (EYE) QID PRN (Reason: Dry Eyes) ropinirole 0.25 mg tablet 0.25 mg PO DAILY Changed metoprolol succinate 25 mg tablet extended release 24 hr 50 mg PO DAILY Qty: 90 0RF Held [place] 12 mg Tablet 24 mg PO DAILY Hold Instructions: Resume on 09/24/23. Resume after discharge from residential Discontinued lisinopril 5 mg Tablet 5 mg PO DAILY Discharge Orders: Discharge Order (Routine); Ordered 09/03/23 Ordered By: Dileep Bajwa Other Ambulatory Orders: DME: Walker (Order) Location: None Selected Ordered By: Wyatt Toscano Referrals: [facility] [Outside] Chinyere Jin MD [Physician] - 1 week (CVA s/p TPA, tardive dyskinesia We have notified your physician's clinic of the need for a follow-up appointment to be scheduled. If you have not heard from them within the next 2 business days, please call them directly. ) Mandeep Madrigal MD [Primary Care Provider] - 4-7 days Patient Instructions: Lisinopril (By mouth), Atorvastatin (By mouth), Fall Prevention (GEN), Opioid Safety, Tardive Dyskinesia Activity Restrictions/Additional Instructions: Medical attention in case of worsening or new concerning symptoms. Consider setting up a medic alert button as discussed to help you call for help in case of for fall or illness at home. Maintain strict fall precautions. Discharge Attestations Time Spent in Discharge Care*: greater than 30 min Quality Metrics Clinical Quality Measures [ No reported AMI, CVA or VTE this stay] Coding Level of Care Code 81860 Total time (in minutes) for Discharge: 40 Diagnoses Multiple falls R29.6 Cerebrovascular accident (CVA) due to other mechanism I63.89 CVA mechanism: other Essential hypertension I10 Hypertension type: essential hypertension Status post aortic valve replacement with bioprosthetic valve Z95.3 Demyelinating disease of central nervous system G37.9 Chronic obstructive pulmonary disease, unspecified COPD type J44.9 COPD type: unspecified COPD Foot pain, left M79.672
[2023-09-03 11:52] VITALS: BP 127/67; PULSE 78; RESP 16; TEMP 36.8; O2SAT 97
[2023-09-03 12:12] LABS: SARS Covid-2 Antigen negative (Negative)
[2023-09-03 16:38] VITALS: BP 160/76; PULSE 74; RESP 18; TEMP 36.8; O2SAT 96
[2023-09-03 17:00] VITALS: BP 160/76; PULSE 74; RESP 18; TEMP 36.8; O2SAT 96
== END 2023-09-03 19:00 | disposition skilled nursing facility (03) ==
LOC: ER 01:41 → MEDSURG 01:53
PROVIDERS: Student in an Organized Health Care Education/Training Program; Admitting Provider Internal Medicine; Emergency Provider Emergency Medicine; PCP Family Medicine; Visit Provider Internal Medicine
DX: R29.6 Repeated falls (principal); I63.89 Other cerebral infarction; G37.9 Demyelinating disease of central nervous system, unspecified; I10 Essential (primary) hypertension; J44.9 Chronic obstructive pulmonary disease, unspecified; M79.672 Pain in left foot; Z95.3 Presence of xenogenic heart valve
CPT/HCPCS: 36415; 36416; 70450; 70551; 71045; 73620; 80053; 80061; 81003; 82607; 82746; 82962; 83036; 83540; 83550; 83735; 84443; 84550; 85025; 87426; 93005; 96360; 96372; 97110; 97116; 97161; 97165; 97530; 99285; G0378; J1650; J7030

== ENCOUNTER 2023-09-04 12:35 | Emergency (ER) | payer OTHER, MEDICAID, SELFPAY ==
[2023-09-04] VITALS (9 sets, daily range): BP systolic 121–151; BP diastolic 49–72; PULSE 72–95; RESP 14–19; TEMP 36.6; O2SAT 96–100
--- NOTE | 2023-09-04 12:35 | XR_ITS ---
WS: [id number] Portable AP semiupright chest, 09/04/2023 Clinical Data: cva Comparison: Portable chest, 08/27/2023 Findings: No nodules, masses or effusions are seen. The heart is normal. The pulmonary vascularity is not increased. No pneumonia or pneumothorax is seen. Midline sternotomy sutures are present. The aor tic arch and descending thoracic aorta show calcification and tortuosity. XR/XR chest 1V portable [id number] Impression: Atherosclerosis.
--- NOTE | 2023-09-04 12:35 | CTR_ITS ---
PROCEDURE INFORMATION: Exam: CT Head Without Contrast Exam date and time: 09/04/2023 12:29 PM Age: 78 years old Clinical indication: Stroke-like symptoms; Altered mental status/memory loss; Additional info: Symptoms of acute stroke TECHNIQUE: Imaging protocol: Computed tomography of the head without contrast. Radiation optimization: All CT scans at this facility use at least one of these dose optimization techniques: automated exposure control; mA and/or kV adjustment per patient size (includes targeted exams where dose is matched to clinical indication); or iterative reconstruction. Other technique: STROKE PROTOCOL was implemented. COMPARISON: MR head wo con* [id number] 08/29/2023 2:42 PM RADIATION DOSE METRICS: Total DLP (mGy-cm): 876.08 FINDINGS: Brain: Mild, diffuse atrophy of the brain.There is ill-defined, fairly symmetric low-density within the cerebral deep white matter bilaterally which is likely the sequela of chronic ischemic change due to small vessel disease. No CT evidence of mass effect, intracranial hemorrhage, or acute infarct. Otherwise, unremarkable. Cerebral ventricles: No ventriculomegaly. Paranasal sinuses: Visualized sinuses are unremarkable. No fluid levels. Mastoid air cells: Visualized mastoid air cells are well aerated. Bones: Unremarkable. No acute fracture. Soft tissues: Unremarkable. CT/CT head thrombolytic [id number] IMPRESSION: 1. No acute findings. 2. Additional details as above. ASSESSMENT: ASPECTS ([place] Stroke Program Early CT Score) is 10.
--- NOTE | 2023-09-04 12:44 | ECG_ITS ---
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 Measurements Intervals [place] Rate: 93 P: 58 NM: 124 QRS: -46 QRSD: 129 T: 38 QT: 382 QTc: 476 Interpretive Statements SINUS RHYTHM RIGHT BUNDLE BRANCH BLOCK [120+ ms QRS DURATION, UPRIGHT V1, 40+ ms S IN I/aVL/V4/V5/V6] LEFT ANTERIOR FASCICULAR BLOCK [QRS AXIS <= -45, QR IN I, RS IN II] VOLTAGE CRITERIA FOR LVH [MEETS CRITERIA IN ONE OF: R(aVL), S(V1), R(V5), R(V5/V6)+S(V1)] Compared to ECG 08/27/2023 00:59:07 No significant changes Electronically Signed On 09-04-2023 14:48:36 CDT by Caesar Robertson M.D. [email or web address]
--- NOTE | 2023-09-04 13:04 | CTR_ITS ---
PROCEDURE INFORMATION: Exam: CTA Head With Contrast, Arteriography Exam date and time: 09/04/2023 1:38 PM Age: 78 years old Clinical indication: Numbness; Additional info: Suspected CVA, weakness/paralysis of L arm and L, L facial droop and stuck TECHNIQUE: Imaging protocol: Computed tomographic angiography of the head with contrast. Exam focused on the arteries. 3D rendering (Not supervised by radiologist): MIP and/or 3D reconstructed images were created by the technologist. Radiation optimization: All CT scans at this facility use at least one of these dose optimization techniques: automated exposure control; mA and/or kV adjustment per patient size (includes targeted exams where dose is matched to clinical indication); or iterative reconstruction. Contrast material: [id number]; Contrast volume: 100 ml; Contrast route: INTRAVENOUS (IV); COMPARISON: CT angio headneck* [id number] 06/12/2023 6:27 PM RADIATION DOSE METRICS: Total DLP (mGy-cm): 393.52 FINDINGS: ANTERIOR CIRCULATION: Right internal carotid artery: Unremarkable petrous portion of the right internal carotid artery. 50-69% diameter stenoses involving the intracranial right internal carotid artery. 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 Right middle cerebral artery: No occlusion or significant stenosis. No aneurysm. Right anterior cerebral artery: No occlusion or significant stenosis. No aneurysm. Anterior communicating artery: The anterior communicating artery appears congenitally absent. Left internal carotid artery: Unremarkable petrous portion of the left internal carotid artery. Plaque in the intracranial left internal carotid artery causing 50-69% diameter stenosis. Left middle cerebral artery: No occlusion or significant stenosis. No aneurysm. Left anterior cerebral artery: No occlusion or significant stenosis. No aneurysm. POSTERIOR CIRCULATION: Right vertebral artery: There is a 40% diameter focal stenosis in the distal right vertebral artery at the level of the foramen magnum. Otherwise, unremarkable distal right vertebral artery. Left vertebral artery: There is a 2 mm aneurysm at the junction of the vertebral arteries into the basilar artery. Otherwise, unremarkable distal left vertebral artery. Basilar artery: Otherwise, unremarkable basilar artery. Right posterior cerebral artery: At least 50-69% diameter stenosis mid right posterior cerebral artery. Otherwise, unremarkable. Left posterior cerebral artery: No occlusion or significant stenosis. No aneurysm. Veins: 50-69% diameter narrowing of the lateral right transverse sinus by an arachnoid granulation. Markedly hypoplastic left transverse and left sigmoid sinuses. This combination can result in intracranial venous hypertension. Otherwise, unremarkable intracranial venous sinuses. Brain: No definite mass, mass effect, or midline shift. Cerebral ventricles: No ventriculomegaly. Bones/joints: Unremarkable. No acute fracture. Soft tissues: Unremarkable. PROCEDURE INFORMATION: Exam: CTA Neck With Contrast Exam date and time: 09/04/2023 1:38 PM Age: 78 years old Clinical indication: Numbness; Additional info: Suspected CVA, weakness/paralysis of L arm and L, L facial droop and stuck TECHNIQUE: Imaging protocol: Computed tomographic angiography of the neck with contrast. Exam focused on the cervical segments of the vasculature. 3D rendering (Not supervised by radiologist): MIP and/or 3D reconstructed images were created by the technologist. Radiation optimization: All CT scans at this facility use at least one of these dose optimization techniques: automated exposure control; mA and/or kV adjustment per patient size (includes targeted exams where dose is matched to clinical indication); or iterative reconstruction. Contrast material: [id number]; Contrast volume: 100 ml; Contrast route: INTRAVENOUS (IV); COMPARISON: CT angio headneck* [id number] 06/12/2023 6:27 PM RADIATION DOSE METRICS: Total DLP (mGy-cm): 393.52 FINDINGS: Right common carotid artery: No stenosis. No dissection or occlusion. Right internal carotid artery: No stenosis of the extracranial segment. No dissection or occlusion. Right external carotid artery: No occlusion or stenosis of the origin. Left common carotid artery: Motion artifact distorts a short segment of the proximal left common carotid artery. Otherwise, unremarkable. Left internal carotid artery: No stenosis of the extracranial segment. No dissection or occlusion. Left external carotid artery: No occlusion or stenosis of the origin. Right vertebral artery: 40% diameter focal stenosis distal right vertebral artery. Otherwise, unremarkable. Left vertebral artery: No stenosis. No dissection or occlusion. Brachiocephalic artery: Unremarkable brachiocephalic artery. Right subclavian artery: 50-69% diameter stenosis proximal right subclavian artery. Otherwise, unremarkable. Left subclavian artery: No significant left subclavian artery pathology. Aorta: No significant aortic arch pathology. Soft tissues: Normal. No significant soft tissue swelling. Bones/joints: No acute fracture. Lungs: Mosaic pattern to the visualized lungs. CT/CT angio headneck* [id number] IMPRESSION: 1. 50-69% diameter stenoses involving the intracranial portions of both internal carotid arteries. 2. At least 50-69% diameter stenosis mid right posterior cerebral artery. 3. 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 4. 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 5. Congenitally absent anterior communicating artery. 6. No other significant intracranial arterial pathology. 7. 50-69% diameter stenosis in the lateral right transverse sinus caused by an arachnoid granulation. Markedly hypoplastic left transverse and sigmoid sinuses. This constellation of findings can cause intracranial venous hypertension. IMPRESSION: 1. 50-69% diameter stenosis proximal right subclavian artery. 2. No other significant arterial pathology in the systemic arteries of the neck and upper chest. 3. Additional details as above. REFERENCES: NASCET CRITERIA. The degree of stenosis in the cervical segment of the internal carotid artery is based on NASCET criteria. Normal is no stenosis. Mild is less than 50% stenosis. Moderate is 50-69% stenosis. Severe is 70% to 99% stenosis. Total occlusion is no detectable patent lumen.
--- NOTE | 2023-09-04 13:27 | PC.PHAR ---
PER PT AND FAMILY MEMBER-NO MEDICATION CHANGES SINCE 08/27/23. PT TOOK MEDICATIONS YESTERDAY 09/03/23
[2023-09-04 13:28] LABS: Basophils # 0.1 10^3/uL (0.0-0.1); Eosinophils # 0.2 10^3/uL (0.0-0.8); Eosinophils % 2.4 %; Hematocrit 40.5 % (36-47); Lymphocytes # 2.1 10^3/uL (0.8-4.8); Lymphocytes % 24.8 %; Mean Corpuscular HGB Conc 32.3 g/dL (30-55); Mean Corpuscular Volume 92.7 fl (85-98); Mean Platelet Volume 10.5 fL (7.4-10.4); Monocytes % 12.1 %; Neutrophils # 4.93 10^3/uL (1.8-7.7); Neutrophils % 59.2 %; Nucleated Red Blood Cells % 0 %; Platelet Count 221 10^3/cmm (157-399); Red Blood Count 4.37 10^6/uL (3.85-5.65); Red Cell Distribution Width 13.7 % (12.1-15.1); White Blood Count 8.33 10^3/uL (3.29-11.43)
[2023-09-04] MEDS: iohexol 350 mg/mL 500 mL Btl (per mL) IV (13:39)
[2023-09-04 13:43] LABS: INR 1.01 (0.8-1.2)
[2023-09-04 13:44] LABS: Partial Thromboplastin Time 29.3 SECONDS (23.9-36.7)
--- NOTE | 2023-09-04 13:49 | W.ED.NEUROSD ---
HPI - Neuro Symptoms/Deficit General: Chief Complaint: Neuro Symptoms/Deficit Stated Complaint: stroke alert Time Seen by Provider: 09/04/23 12:38 History of Present Illness: Patient brought in from retirement. She was there and returned yesterday from hospital/swing bed stay patient was then normal until noon when she suddenly had a onset of left forced gaze of both eyes along with left-sided weakness and a facial droop. History filed by [id number], EMS. Patient is alert and oriented and also helps with history. Speech is slurred. NIH 11. PFSH ED PFSH: Medical History (Updated 09/04/23 @ 16:27 by Alfred Villagomez MD) tPA adm status 24 hr [facility] July 2023 Orthostatic hypotension Tardive dyskinesia DNR (do not resuscitate) Hypercholesterolemia Chronic obstructive pulmonary disease, unspecified Labyrinthitis Backache Bipolar affective disorder Arthropathy, unspecified HTN (hypertension) RLS (restless legs syndrome) Sleep apnea Peripheral vertigo Irritable bowel syndrome Aortic stenosis, severe Surgical History (Updated 09/04/23 @ 00:01 by MAETO Leigh) History of nasal surgery Status post aortic valve replacement with bioprosthetic valve History of abdominal hysterectomy H/O foot surgery H/O eye surgery H/O oral surgery Hx of cholecystectomy History of appendectomy Family History Other Hypertension Social History Smoking and tobacco/nicotine status: former use of tobacco/nicotine Quit status (tobacco/nicotine): has quit using Year quit tobacco: 1979 - ciggs x 6 Years Second hand smoke exposure: No Alcohol intake: never Substance/Drug Use: never Caregiver/support person: Yes Lives independently: Yes Household members: none Housing: House Marital status: / Current occupational status: retired and disabled Pets and animals: Yes Pets & animals: dog(s) Do you think of yourself as: Straight/Heterosexual Current gender identity: Female Course ED course: Patient and examined mom times of course stay. Just spoke with hospitalist at 1508 who request that she be transferred to facility with inpatient neuro. Of note also spoke with [facility] neuro who examined the patient and got back with me and agreed with no tPA at 1430. Suspect focal seizure versus movement disorder. With highly suspect for right frontal lobe focal seizure. 1623 outside hospital called back and accepts under Dr. Martinez. Spoke with Kori. Vital Signs: Vital signs: Vital Signs Temperature 97.8 F 09/04/23 12:35 Pulse Rate 76 09/04/23 14:30 Respiratory Rate 17 09/04/23 14:30 Blood Pressure 121/49 09/04/23 14:30 Pulse Oximetry 97 09/04/23 14:30 Oxygen Delivery Me thod Room Air 09/04/23 14:30 MDM - Neuro Symptoms/Deficit Medical Decision Making Patient evaluated possible stroke alert came in with last normal at 12:00. NIH of 11 with forced left gaze of both eyes along with left-sided paralysis. Given atypical presentation held off on tPA she also had tPA 2 weeks ago so is higher risk. Patient CT head was personally reviewed to see no acute malady, CT angiogram was done of the head and neck and I also saw no acute abnormality on this specifically no large vessel occlusion. Radiology reads agreed on both these interpretations. Patient evaluated by telemetry neuro with [facility] and they agree for likely seizure and specified as a right frontal lobe focal seizure likely versus other movement disorder. Since his inpatient admission. I then spoke with the hospitalist requested transfer to facility with inpatient neuro. [facility] agreed. Of note she was at [facility] 2 weeks ago. Differential Diagnosis Likely convulsions, cerebrovascular accident and transient cerebral ischemia Medical Records I reviewed the patient's medical records. Lab Data I reviewed the patient's lab results. 09/04/23 12:45 09/04/23 12:45 Radiology Impressions Chest X-Ray 09/04/23 12:35 Impression: Atherosclerosis. Head CT 09/04/23 12:35 IMPRESSION: 1. No acute findings. 2. Additional details as above. ASSESSMENT: ASPECTS ([place] Stroke Program Early CT Score) is 10. ADDENDUM: 09/04/23 8118 ADDENDUM: THIS REPORT CONTAINS FINDINGS THAT MAY BE CRITICAL TO PATIENT CARE. The findings were verbally communicated via telephone conference with Dr. Villagomez at 1:07 PM CDT on 09/04/2023. The findings were acknowledged and understood. Head/Neck CTA 09/04/23 13:04 IMPRESSION: 1. 50-69% diameter stenoses involving the intracranial portions of both internal carotid arteries. 2. At least 50-69% diameter stenosis mid right posterior cerebral artery. 3. 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 4. 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 5. Congenitally absent anterior communicating artery. 6. No other significant intracranial arterial pathology. 7. 50-69% diameter stenosis in the lateral right transverse sinus caused by an arachnoid granulation. Markedly hypoplastic left transverse and sigmoid sinuses. This constellation of findings can cause intracranial venous hypertension. IMPRESSION: 1. 50-69% diameter stenosis proximal right subclavian artery. 2. No other significant arterial pathology in the systemic arteries of the neck and upper chest. 3. Additional details as above. REFERENCES: NASCET CRITERIA. The degree of stenosis in the cervical segment of the internal carotid artery is based on NASCET criteria. Normal is no stenosis. Mild is less than 50% stenosis. Moderate is 50-69% stenosis. Severe is 70% to 99% stenosis. Total occlusion is no detectable patent lumen. Laboratory Results WBC 8.33 10^3/uL (3.29-11.43) 09/04/23 12:45 RBC 4.37 10^6/uL (3.85-5.65) 09/04/23 12:45 Hgb 13.10 g/dL (11.27-16.99) 09/04/23 12:45 Hct 40.5 % (36-47) 09/04/23 12:45 MCV 92.7 fl (85-98) 09/04/23 12:45 MCH 30.0 pg (27-33) 09/04/23 12:45 MCHC 32.3 g/dL (30-55) 09/04/23 12:45 RDW 13.7 % (12.1-15.1) 09/04/23 12:45 Plt Count 221 10^3/cmm (157-399) 09/04/23 12:45 MPV 10.5 fL (7.4-10.4) H 09/04/23 12:45 Neut % (Auto) 59.2 % 09/04/23 12:45 Lymph % (Auto) 24.8 % 09/04/23 12:45 Jackson % (Auto) 12.1 % 09/04/23 12:45 Eos % (Auto) 2.4 % 09/04/23 12:45 Baso % (Auto) 1.0 % 09/04/23 12:45 Neut # (Auto) 4.93 10^3/uL (1.8-7.7) 09/04/23 12:45 Lymph # (Auto) 2.1 10^3/uL (0.8-4.8) 09/04/23 12:45 Jackson # (Auto) 1.0 10^3/uL (0.2-0.9) H 09/04/23 12:45 Eos # (Auto) 0.2 10^3/uL (0.0-0.8) 09/04/23 12:45 Baso # (Auto) 0.1 10^3/uL (0.0-0.1) 09/04/23 12:45 Nucleated RBC % (auto) 0 % 09/04/23 12:45 Nucleated RBCs # 0.0 /100WBC 09/04/23 12:45 PT 13.60 SECONDS (12.1-14.9) 09/04/23 12:45 INR 1.01 (0.8-1.2) 09/04/23 12:45 APTT 29.3 SECONDS (23.9-36.7) 09/04/23 12:45 Sodium 140 mmol/L (136-145) 09/04/23 12:45 Potassium 5.0 mmol/L (3.5-5.1) 09/04/23 12:45 Chloride 102 mmol/L (98-107) 09/04/23 12:45 Carbon Dioxide 27 mmol/L (22-29) 09/04/23 12:45 Anion Gap 16.0 (5-19) 09/04/23 12:45 BUN 29 mg/dL (8-23) H 09/04/23 12:45 Creatinine 1.4 mg/dL (0.5-0.9) H 09/04/23 12:45 GFR Calculation Not Reportable 09/04/23 12:45 Glucose 143 mg/dL (65-115) H 09/04/23 12:45 Calculated Osmolality 298 mOsm/kg (285-295) H 09/04/23 12:45 Calcium 9.3 mg/dL (8.5-10.5) 09/04/23 12:45 Total Bilirubin 0.3 mg/dL (0.15-1.2) 09/04/23 12:45 AST 18 U/L (0-32) 09/04/23 12:45 ALT 18 U/L (0-33) 09/04/23 12:45 Alkaline Phosphatase 88 U/L (35-105) 09/04/23 12:45 Total Protein 6.4 g/dL (6.6-8.7) L 09/04/23 12:45 Albumin 3.4 g/dL (3.5-5.2) L 09/04/23 12:45 Globulin 3.0 g/dL (1.3-4.6) 09/04/23 12:45 Urine Color Yellow (Yellow) 09/04/23 14:05 Urine Appearance Clear (CLEAR) 09/04/23 14:05 Urine pH 5 (5-7) 09/04/23 14:05 Ur Specific [place] 1.020 (1.005-1.030) 09/04/23 14:05 Urine Protein Neg (Negative) 09/04/23 14:05 Urine Glucose (UA) Norm (Normal) 09/04/23 14:05 Urine Ketones Negative (Negative) 09/04/23 14:05 Urine Blood Neg (Negative) 09/04/23 14:05 Urine Nitrate Negative (Negative) 09/04/23 14:05 Urine Bilirubin 1+ (Negative) H 09/04/23 14:05 Urine Urobilinogen Neg mg/dL (Negative) 09/04/23 14:05 Ur Leukocyte Esterase Negative (Negative) 09/04/23 14:05 Urine Opiates Screen Negative ng/mL (Negative) 09/04/23 14:05 Ur Barbiturates Screen Negative ng/mL (Negative) 09/04/23 14:05 Ur Phencyclidine Scrn Negative ng/mL (Negative) 09/04/23 14:05 Ur Amphetamines Screen Negative ng/mL (Negative) 09/04/23 14:05 U Benzodiazepines Scrn Negative ng/mL (Negative) 09/04/23 14:05 Urine Cocaine Screen Negative ng/mL (Negative) 09/04/23 14:05 U Marijuana (THC) Screen Negative ng/mL (Negative) 09/04/23 14:05 All radiology interpretation(s) finalized by discharge ED provider radiology interpretation(s): see MDM narrative Other Data I personally reviewed and interpreted the following: EKG shows sinus rate of 93 with no prolonged intervals no ST elevation. Does have right bundle branch block. Discharge Plan Discharge Patient Disposition: Xfer Short-Term Hosp Clinical Impression: Focal seizures, Art's paralysis (postepileptic) Condition: Stable Prescriptions: No Action azelastine 137 mcg (0.1 %) aerosol,spray 1 spray intranasal BID PRN (Reason: allergies) Rx Instructions: administer into each nostril tizanidine 4 mg Tablet 4 mg PO TID PRN (Reason: muscle spasms) hydrocodone-acetaminophen 5-325 mg Tablet 1 tab PO Q6H PRN (Reason: Pain) omeprazole 40 mg Capsule,Delayed Release(Dr/Ec) 40 mg PO DAILY aspirin 81 mg Tablet,Delayed Release (Dr/Ec) 81 mg PO DAILY acyclovir 800 mg Tablet 800 mg PO DAILY diphenhydramine HCl 25 mg Tablet 25 mg PO BEDTIME hydroxyzine HCl 25 mg Tablet 25 mg PO BID PRN (Reason: Itching) Systane (PF) 0.4-0.3 % Dropperette 1 drp OPHTHALMIC (EYE) QID PRN (Reason: Dry Eyes) [place] 12 mg Tablet 24 mg PO DAILY Hold Instructions: Resume on 09/24/23. Resume after discharge from retirement ropinirole 0.25 mg tablet 0.25 mg PO DAILY lisinopril 20 mg Tablet 20 mg PO DAILY Qty: 90 0RF metoprolol succinate 25 mg tablet extended release 24 hr 50 mg PO DAILY Qty: 90 0RF atorvastatin 40 mg Tablet 20 mg PO BEDTIME Qty: 90 0RF Referrals: Mandeep Madrigal MD [Primary Care Provider] - Coding Level of Care Code ED Laydown Machine Operator for 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
[2023-09-04 13:51] LABS: Alanine Aminotransferase 18 U/L (0-33); Albumin Level 3.4 g/dL (3.5-5.2); Alkaline Phosphatase 88 U/L (35-105); Aspartate Amino Transferase 18 U/L (0-32); Blood Urea Nitrogen 29 mg/dL (8-23); Calcium 9.3 mg/dL (8.5-10.5); Carbon Dioxide 27 mmol/L (22-29); Chloride 102 mmol/L (98-107); Glucose 143 mg/dL (65-115); Osmolality Calculated 298 mOsm/kg (285-295); Sodium 140 mmol/L (136-145); Total Bilirubin 0.3 mg/dL (0.15-1.2); Total Protein 6.4 g/dL (6.6-8.7)
[2023-09-04 14:13] LABS: Add Urine Microscopic? NO; Charge for UA Resulting for Rev
[2023-09-04 14:21] LABS: Bilirubin Urine 1+ (Negative); Blood Urine Neg (Negative); Glucose Urine UA Norm (Normal); Ketones Urine Negative (Negative); Leukocyte Esterase Urine Negative (Negative); Nitrate Urine Negative (Negative); Protein Urine Neg (Negative); Urine Appearance Clear (CLEAR); Urine Color Yellow (Yellow); Urobilinogen Urine Neg (Negative); pH Urine 5 (5-7)
[2023-09-04 14:28] LABS: Amphetamines Screen Urine Negative (Negative); Barbiturates Screen Urine Negative (Negative); Benzodiazepines Screen Urine Negative (Negative); Cocaine Screen Urine Negative (Negative); Opiate Screen Urine Negative (Negative); PCP Screen Urine Negative (Negative); THC Screen Urine Negative (Negative)
[2023-09-04] MEDS: levETIRAcetam 1,000 MG/100 ML PREMIX 400 MG IV (15:06)
== END 2023-09-04 22:13 | disposition short-term general hospital (02) ==
PROVIDERS: Emergency Medicine; Emergency Provider Emergency Medicine; PCP Family Medicine
DX: G40.89 Other seizures (principal); G83.84 Todd's paralysis (postepileptic); Z79.82 Long term (current) use of aspirin; Z87.891 Personal history of nicotine dependence; I10 Essential (primary) hypertension
CPT/HCPCS: 36415; 70450; 70496; 70498; 71045; 80053; 80306; 81003; 85025; 85610; 85730; 93005; 96374; 99285; J1953; Q9967

== ENCOUNTER 2023-09-16 14:06 | Emergency (ER) | payer MEDICARE, MEDICAID, SELFPAY ==
--- NOTE | 2023-09-16 14:08 | CT_ITS ---
WS: [id number] CT HEAD NONCONTRAST HISTORY: Symptoms of acute stroke TECHNIQUE: Contiguous axial imaging performed through the brain in 2.5 mm imaging. Bone and soft tiss ue windows. Sagittal and coronal reformats reviewed. All CT scans at [facility] use at least one of these dose optimization techniques: automated exposure control; mA and/or kV adjustment per pa tient size (includes targeted exams where dose is matched to clinical indication); or iterative recon struction. DLP: 1072.38 mGy COMPARISON: None available. Mild atrophy with mild bilateral areas of decreased attenuation in the periventricular white matter p robably from small vessel ischemic disease. No prior infarct. Ventricles: Normal size with no hydrocephalus. No inferior displacement of the cerebellar tonsils. Paranasal sinuses: As visualized are clear. Mastoid air cells: Well pneumatized. Calvarium and scalp: Skull is intact with no soft tissue edema or swelling. Advanced atherosclerotic calcification in the distal RIGHT vertebral artery and in the cavernous shaver tid arteries.
[2023-09-16 14:18] VITALS: BP 101/52; PULSE 93; RESP 26; TEMP 36.9; O2SAT 91; BMI 25.7
--- NOTE | 2023-09-16 14:21 | CT_ITS ---
WS: [id number] CT ANGIOGRAM CEREBRAL AND CAROTID ARTERIES HISTORY: cva TECHNIQUE: CT angiogram is performed of the carotid and cerebral arteries. During arterial injection imaging is obtained from the skull vertex to the aortic arch in 1.25 mm imaging. Coronal and sagittal reformats are submitted. Additional multi planar reformats of the carotid and cerebral arteries are submitted, MIP imaging also reviewed. NASCET criteria utilized. [facility] CT [facility] at [facility] e at least one of these dose optimization techniques: automated exposure control; mA and/or kV adjust ment per patient size (includes targeted exams where dose is matched to clinical indication); or iter ative reconstruction. CONTRAST: Omnipaque 350; 100 mL IV. DLP: COMPARISON: 09/04/2023 Carotid Angiogram: Right carotid: Common carotid artery: Arises normally from the innominate artery. No significant plaque or stenosis. Mild intimal thickening. Internal carotid artery: Mild intimal plaque. No significant stenosis. External carotid artery: Patent. Left carotid: Common carotid artery: Arises normally from the aorta. No significant plaque or stenosis. Internal carotid artery: Mild intimal thickening and plaque. No significant stenosis. External carotid artery: Patent. Right vertebral artery: Dominant. No stenosis. Left vertebral artery: Small amount of calcified plaque at the origin. Otherwise normal. Subclavian arteries: Very slight encroachment upon the origin of the LEFT subclavian artery. No high- grade stenosis. RIGHT subclavian artery is obscured by contrast injection bolus that grossly appears normal as visualized. Upper thorax: Groundglass attenuation at the lung apices. No mass. Moderate atherosclerosis of the ar ch. Coronary artery calcification. Heart size is slightly enlarged. Intimal thickening and calcified plaque in the visualized aortic arch and descending aorta. Thyroid gland: Normal. Osseous structures: Marked increase in the cervical lordosis. CEREBRAL ANGIOGRAM: Intracranial vertebral arteries: No stenosis. Dominant RIGHT vertebral artery. Basilar artery: No significant stenosis or occlusion. No aneurysm. Intracranial Internal carotid arteries: Heavy calcified plaque at the distal intracranial carotid art eries. Stenosis approximately 50 to 60% is visualized on the prior study. Mildly bulbous appearance o f the supraclinoid RIGHT ICA but no definite aneurysm is identified on today's study as previously cortes spected. Middle cerebral arteries: Mild atherosclerotic plaque in the M1 segments. No thrombus or occlusion. N o aneurysms. Anterior cerebral arteries and ACOM: Small caliber or absent anterior communicating artery. Otherwise negative. Posterior cerebral arteries and PCOM's: Mild narrowing of the mid RIGHT posterior cerebral artery. No high-grade occlusion. 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 No interval change. CT/CT angio headneck* [id number] IMPRESSION: 1. No cervical carotid artery stenosis. Minimal plaque at the bifurcations. 2. Moderate stenosis with heavy calcified plaque in the intracranial carotid a rteries. No occlusions. 3. Previously described very small aneurysms involving the distal RIGHT ICA an d near the basilar tip are not definitely reidentified. These may be hard to vi sualize due to their small size. 4. Middle cerebral arteries are both patent with mild atherosclerotic plaque. No aneurysms.
--- NOTE | 2023-09-16 14:23 | ECG_ITS ---
[facility] Test Date: 2023-09-16 Pat Name: Imer Brasher Department: Room: Gender: Female Print Journalist: : 1945 Requested By: Christina Armendariz Order Number: [id number] Gregory MD: Zarina Pride M.D. Measurements Intervals [place] Rate: 90 P: 53 [place]: 141 QRS: -50 QRSD: 134 T: 79 QT: 379 QTc: 466 Interpretive Statements SINUS RHYTHM RIGHT BUNDLE BRANCH BLOCK [120+ ms QRS DURATION, UPRIGHT V1, 40+ ms S IN I/aVL/V4/V5/V6] LEFT ANTERIOR FASCICULAR BLOCK [QRS AXIS <= -45, QR IN I, RS IN II] VOLTAGE CRITERIA FOR LVH [MEETS CRITERIA IN ONE OF: R(aVL), S(V1), R(V5), R(V5/V6)+S(V1)] No previous ECG available for comparison Electronically Signed On 09-16-2023 18:12:51 CDT by Zarina Pride M.D. [email or web address]
--- NOTE | 2023-09-16 14:23 | ED_ITS ---
HPI - Neuro Symptoms/Deficit 2 General: Chief Complaint: Neuro Symptoms/Deficit Stated Complaint: Weakness, Time Seen by Provider: 09/16/23 14:08 Source: patient and EMS Mode of arrival: EMS Limitations: no limitations History of Present Illness: 78-year-old female with a history of cer vical dystonia also history of seizure she had been seen here multiple times for strokelike symptoms actually and received lytics a month ago at [facility]. Patient states the [facility] started having some left-sided weakness at 1130 and has had some improvement in that weakness she denies any slurred speech denies any headache denies any fevers. 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 Orthostatic hypotension Tardive dyskinesia DNR (do not resuscitate) Hypercholesterolemia Chronic obstructive pulmonary disease, unspecified Labyrinthitis Backache Bipolar affective disorder Arthropathy, unspecified HTN (hypertension) RLS (restless legs syndrome) Sleep apnea Peripheral vertigo Irritable bowel syndrome Aortic stenosis, severe Surgical History History of nasal surgery Status post aortic valve replacement with bioprosthetic valve History of abdominal hysterectomy H/O foot surgery H/O eye surgery H/O oral surgery Hx of cholecystectomy History of appendectomy Family History Other Hypertension Social History Smoking and tobacco/nicotine status: former use of tobacco/nicotine Quit status (tobacco/nicotine): has quit using Year quit tobacco: 1979 - ciggs x 6 Years Second hand smoke exposure: No Alcohol intake: never Substance/Drug Use: never Caregiver/support person: Yes Lives independently: Yes Household members: none Housing: House Marital status: / Current occupational status: retired and disabled Pets and animals: Yes Pets & animals: dog(s) Do you think of yourself as: Straight/Heterosexual Current gender identity: Female NIH stroke score 2 NIHSS: Level Of Consciousness - 1a: 0 Level Of Consciousness Questions - 1b: Both Correct Level Of Consciousness Commands - 1c: Both Correct Best Gaze - 2: Normal Visual Slaughter - 3: No Visual Loss Facial Palsy - 4: N ormal Motor Arm Right - 5: No Drift Motor Arm Left - 5: Effort Against [place] Motor Leg Right - 6: No Drift Motor Leg Left - 6: Effort Against [place] Limb Ataxia - 7: Absent Sensory - 8: Normal Best Language - 9: No Aphasia Dysarthia - 10: Normal Extinction And Inattention - 11: 0 Score: Total Score: 4 Physical Exam 2 Const: COMMON NORMALS: no acute distress, patient oriented x3 and healthy appearing HENMT: COMMON NORMALS: normocephalic and atraumatic HEAD & SCALP: n ormocephalic and atraumatic Eye: COMMON NORMALS: Equal, round and reactive pupils present and EOMs intact bilaterally PUPIL: Yes Equal, round and reactive pupils present Neck/C-Spine: COMMON NORMALS: full ROM and supple Chest: COMMONS NORMALS: normal inspection of the chest Resp: COMMON NORMALS: normal respiratory effort Cardio: COMMON NORMALS: regular rate, regular rhythm and No murmurs present (Cardio) RATE: regular rate RHYTHM: regular rhythm Extremity: COMMON NORMALS: normal to inspection and full ROM Neuro: COMMON NORMALS: patient oriented x3 CRANIAL NERVES: Yes CN normal except as noted OTHER: left sided weakness Psych: COMMON NORMALS: mental status grossly normal, Normal thought process present and cooperative THOUGHT PROCESS: Normal thought process present Skin: COMMON NORMALS: no rashes or lesions noted and no wounds GENERAL SKIN EXAM: no rashes or lesions noted Course 2 Vital Signs: Vital signs: Vital Signs Temperature 98.4 F 09/16/23 14:18 Pulse Rate 78 09/16/23 16:17 Respiratory Rate 26 H 09/16/23 14:18 Blood Pressure 101/52 09/16/23 14:18 Pulse Oximetry 94 09/16/23 16:17 Oxygen Delivery Me thod Room Air 09/16/23 16:17 MDM - Neuro Symptoms/Deficit Medical Decision Making Patient's symptoms have since resolved CT CTA here normal she had multiple symptoms like this in the past could be from her cervical dystonia or TIA she stable for discharge back to [facility] as her symptoms have resolved. She has no signs of acute stroke Medical Records I reviewed the patient's medical records. Lab Data I reviewed the patient's lab results. 09/16/23 14:23 09/16/23 14:23 Radiology Impressions Head/Neck CTA 09/16/23 14:21 IMPRESSION: 1. No cervical carotid artery stenosis. Minimal plaque at the bifurcations. 2. Moderate stenosis with heavy calcified plaque in the intracranial carotid arteries. No occlusions. 3. Previously described very small aneurysms involving the distal RIGHT ICA and near the basilar tip are not definitely reidentified. These may be hard to visualize due to their small size. 4. Middle cerebral arteries are both patent with mild atherosclerotic plaque. No aneurysms. Chest X-Ray 09/16/23 15:01 Impression: Atherosclerosis. Head CT 09/16/23 15:03 IMPRESSION: 1. No acute intracranial hemorrhage or edema. 2. Mild atrophy with moderate small vessel ischemic disease. Notified Christina Armendariz MD at 09/16/2023 2:21 PM. Laboratory Results WBC 12.24 10^3/uL (3.29-11.43) H 09/16/23 14:23 RBC 4.48 10^6/uL (3.85-5.65) 09/16/23 14:23 Hgb 13.40 g/dL (11.27-16.99) 09/16/23 14:23 Hct 41.8 % (36-47) 09/16/23 14:23 MCV 93.3 fl (85-98) 09/16/23 14:23 MCH 29.9 pg (27-33) 09/16/23 14:23 MCHC 32.1 g/dL (30-55) 09/16/23 14:23 RDW 14.1 % (12.1-15.1) 09/16/23 14:23 Plt Count 220 10^3/cmm (157-399) 09/16/23 14:23 MPV 10.5 fL (7.4-10.4) H 09/16/23 14:23 Neut % (Auto) 66.5 % 09/16/23 14:23 Lymph % (Auto) 18.8 % 09/16/23 14:23 Darke % (Auto) 11.9 % 09/16/23 14:23 Eos % (Auto) 1.6 % 09/16/23 14:23 Baso % (Auto) 0.2 % 09/16/23 14:23 Neut # (Auto) 8.13 10^3/uL (1.8-7.7) H 09/16/23 14:23 Lymph # (Auto) 2.3 10^3/uL (0.8-4.8) 09/16/23 14:23 Darke # (Auto) 1.5 10^3/uL (0.2-0.9) H 09/16/23 14:23 Eos # (Auto) 0.2 10^3/uL (0.0-0.8) 09/16/23 14:23 Baso # (Auto) 0.0 10^3/uL (0.0-0.1) 09/16/23 14:23 Nucleated RBC % (auto) 0 % 09/16/23 14:23 Nucleated RBCs # 0.0 /100WBC 09/16/23 14:23 PT 13.50 SECONDS (12.1-14.9) 09/16/23 14:23 INR 1.00 (0.8-1.2) 09/16/23 14:23 APTT 26.5 SECONDS (23.9-36.7) 09/16/23 14:23 Sodium 135 mmol/L (136-145) L 09/16/23 14:23 Potassium 4.0 mmol/L (3.5-5.1) 09/16/23 14:23 Chloride 98 mmol/L (98-107) 09/16/23 14:23 Carbon Dioxide 28 mmol/L (22-29) 09/16/23 14:23 Anion Gap 13.0 (5-19) 09/16/23 14:23 BUN 32 mg/dL (8-23) H 09/16/23 14:23 Creatinine 1.6 mg/dL (0.5-0.9) H 09/16/23 14:23 GFR Calculation Not Reportable 09/16/23 14:23 Glucose 142 mg/dL (65-115) H 09/16/23 14:23 Calculated Osmolality 289 mOsm/kg (285-295) 09/16/23 14:23 Calcium 8.2 mg/dL (8.5-10.5) L 09/16/23 14:23 Total Bilirubin 0.4 mg/dL (0.15-1.2) 09/16/23 14:23 AST 14 U/L (0-32) 09/16/23 14:23 ALT 12 U/L (0-33) 09/16/23 14:23 Alkaline Phosphatase 85 U/L (35-105) 09/16/23 14:23 Total Protein 6.2 g/dL (6.6-8.7) L 09/16/23 14:23 Albumin 3.4 g/dL (3.5-5.2) L 09/16/23 14:23 Globulin 2.8 g/dL (1.3-4.6) 09/16/23 14:23 All radiology interpretation(s) finalized by discharge EKG Data EKG 1: I personally reviewed and interpreted this EKG as follows: EKG interpretation date: 09/16/23 EKG interpretation time: 14:23 Interpretation: nsr hr [address] elevation qrs 134 qtc 427 Discharge Plan Discharge Patient Disposition: Home Clinical Impression: Transient cerebral ischemia, Cervical dystonia Condition: Stable Prescriptions: No Action tizanidine 4 mg Tablet 4 mg PO TID PRN (Reason: muscle spasms) hydrocodone-acetaminophen 5-325 mg Tablet 1 tab PO Q6H PRN (Reason: Pain) omeprazole 40 mg Capsule,Delayed Release(Dr/Ec) 40 mg PO QAM aspirin 81 mg Tablet,Delayed Release (Dr/Ec) 81 mg PO QAM acyclovir 800 mg Tablet 800 mg PO DAILY diphenhydramine HCl 25 mg Tablet 25 mg PO BEDTIME hydroxyzine HCl 25 mg Tablet 25 mg PO BID PRN (Reason: Itching) Systane (PF) 0.4-0.3 % Dropperette 1 drp OPHTHALMIC (EYE) QID PRN (Reason: Dry Eyes) atorvastatin 80 mg Tablet 80 mg PO QPM acetaminophen 325 mg Tablet 650 mg PO Q4H PRN (Reason: GENERAL DISCOMFORT) Rx Instructions: DISCOMFORT acetaminophen 325 mg Tablet 650 mg PO Q6H PRN (Reason: Pain) Rx Instructions: PAIN prednisone 10 mg Tablet 30 mg PO DAILY Rx Instructions: X 4 DAYS albuterol sulfate 2.5 mg /3 mL (0.083 %) Solution For Nebulization 2.5 mg INHALATION Q6H PRN (Reason: Shortness Of Breath) metoprolol succinate 50 mg Tablet Extended Release 24 Hr 50 mg PO QAM clopidogrel 75 mg Tablet 75 mg PO QAM meclizine 25 mg Tablet 25 mg PO Q8H PRN (Reason: Dizziness) amlodipine 10 mg Tablet 10 mg PO QAM ropinirole 0.5 mg Tablet 0.5 mg PO BID azelastine 137 mcg (0.1 %) Aerosol,[place] 1 spray INTRANASAL BID PRN (Reason: RHINITIS) Rx Instructions: administer into each nostril oxybutynin chloride 5 mg Tablet 5 mg PO QAM Flonase 50 mcg/actuation [place],Suspension 2 spray INTRANASAL Q12H PRN (Reason: RHINITIS) Rx Instructions: administer into each nostril lisinopril 20 mg tablet 20 mg PO QAM Discharge Orders: Discharge ED (Routine); Ordered 09/16/23 Ordered By: Christina Armendariz Discharge Diet: Advance as tolerated Discharge Activity: Resume usual activity Patient Instructions: TIA Coding Level of Care Code ED Kitchen Work Supervisor for 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
[2023-09-16 14:33] LABS: Basophils % 0.2 %; Eosinophils # 0.2 10^3/uL (0.0-0.8); Eosinophils % 1.6 %; Hematocrit 41.8 % (36-47); Lymphocytes # 2.3 10^3/uL (0.8-4.8); Lymphocytes % 18.8 %; Mean Corpuscular HGB Conc 32.1 g/dL (30-55); Mean Corpuscular Hemoglobin 29.9 pg (27-33); Mean Corpuscular Volume 93.3 fl (85-98); Mean Platelet Volume 10.5 fL (7.4-10.4); Monocytes # 1.5 10^3/uL (0.2-0.9); Monocytes % 11.9 %; Neutrophils # 8.13 10^3/uL (1.8-7.7); Neutrophils % 66.5 %; Nucleated Red Blood Cells % 0 %; Platelet Count 220 10^3/cmm (157-399); Red Blood Count 4.48 10^6/uL (3.85-5.65); Red Cell Distribution Width 14.1 % (12.1-15.1); White Blood Count 12.24 10^3/uL (3.29-11.43)
[2023-09-16 14:52] LABS: Alanine Aminotransferase 12 U/L (0-33); Albumin Level 3.4 g/dL (3.5-5.2); Alkaline Phosphatase 85 U/L (35-105); Aspartate Amino Transferase 14 U/L (0-32); Blood Urea Nitrogen 32 mg/dL (8-23); Calcium 8.2 mg/dL (8.5-10.5); Carbon Dioxide 28 mmol/L (22-29); Chloride 98 mmol/L (98-107); Creatinine Clr Calc Pharmacy 27.2701; Globulin 2.8 g/dL (1.3-4.6); Glucose 142 mg/dL (65-115); Osmolality Calculated 289 mOsm/kg (285-295); Sodium 135 mmol/L (136-145); Total Bilirubin 0.4 mg/dL (0.15-1.2); Total Protein 6.2 g/dL (6.6-8.7)
[2023-09-16 14:59] LABS: Partial Thromboplastin Time 26.5 SECONDS (23.9-36.7)
--- NOTE | 2023-09-16 15:01 | XR_ITS ---
WS: [id number] Portable AP semiupright chest, 09/16/2023 Clinical Data: WEAKNESS Comparison: Portable chest, 09/04/2023 Findings: No nodules, masses or effusions are seen. The heart is normal. The pulmonary vascularity is not increased. No pneumonia or pneumothorax is seen. The aortic arch and descending thoracic aorta s how mild tortuosity. Midline sternotomy sutures are present. There are monitor leads on the chest joe isabel XR/XR chest 1V portable [id number] Impression: Atherosclerosis.
--- NOTE | 2023-09-16 15:03 | CT_ITS ---
WS: [id number] CT HEAD NONCONTRAST HISTORY: Symptoms of acute stroke TECHNIQUE: Contiguous axial imaging performed through the brain in 2.5 mm imaging. Bone and soft tiss ue windows. Sagittal and coronal reformats reviewed. All CT scans at [facility] use at least one of these dose optimization techniques: automated exposure control; mA and/or kV adjustment per pa tient size (includes targeted exams where dose is matched to clinical indication); or iterative recon struction. DLP: 1072.38 mGy COMPARISON: None available. Mild atrophy with mild bilateral areas of decreased attenuation in the periventricular white matter p robably from small vessel ischemic disease. No prior infarct. Ventricles: Normal size with no hydrocephalus. No inferior displacement of the cerebellar tonsils. Paranasal sinuses: As visualized are clear. Mastoid air cells: Well pneumatized. Calvarium and scalp: Skull is intact with no soft tissue edema or swelling. Advanced atherosclerotic calcification in the distal RIGHT vertebral artery and in the cavernous shaver tid arteries. CT/CT head thrombolytic [id number] IMPRESSION: 1. No acute intracranial hemorrhage or edema. 2. Mild atrophy with moderate small vessel ischemic disease. Notified Christina Armendariz MD at 09/16/2023 2:21 PM.
--- NOTE | 2023-09-16 15:41 | PC.PHAR ---
PT IS FROM [facility] [place]
[2023-09-16] MEDS: iohexol 350 mg/mL 500 mL Btl (per mL) IV (15:53)
[2023-09-16 16:17] VITALS: PULSE 78; O2SAT 94
[2023-09-16 17:17] LABS: Amphetamines Screen Urine Negative (Negative); Barbiturates Screen Urine Negative (Negative); Benzodiazepines Screen Urine Negative (Negative); Cocaine Screen Urine Negative (Negative); Opiate Screen Urine Positive (Negative); PCP Screen Urine Negative (Negative); THC Screen Urine Negative (Negative)
[2023-09-16 17:39] LABS: Add Urine Microscopic? YES; Bilirubin Urine Neg (Negative); Blood Urine Neg (Negative); Glucose Urine UA Norm (Normal); Ketones Urine Negative (Negative); Leukocyte Esterase Urine Negative (Negative); Nitrate Urine Negative (Negative); Protein Urine Trace (Negative); Specific Gravity, Urine 1.015 (1.005-1.030); Urine Appearance Clear (CLEAR); Urine Color Yellow (Yellow); Urobilinogen Urine Norm (Negative); pH Urine 6 (5-7)
[2023-09-16 17:42] LABS: Add Urine Culture? No; Hyaline Casts Urine 0-4 /lpf; Mucus Urine TRACE /hpf
--- NOTE | 2023-09-16 18:59 | PC.NURSE ---
STROKE SCALE PACKET UPLOADED IN CHART
[2023-09-16 20:28] VITALS: PULSE 103; RESP 18; O2SAT 96
== END 2023-09-16 19:29 | disposition home or self-care (01) ==
PROVIDERS: Emergency Provider Emergency Medicine
DX: G45.9 Transient cerebral ischemic attack, unspecified (principal); G24.3 Spasmodic torticollis; Z79.02 Long term (current) use of antithrombotics/antiplatelets; Z79.82 Long term (current) use of aspirin; Z87.891 Personal history of nicotine dependence; J44.9 Chronic obstructive pulmonary disease, unspecified; I10 Essential (primary) hypertension
CPT/HCPCS: 70450; 70496; 70498; 71045; 80053; 80306; 81001; 85025; 85610; 85730; 93005; 99285; Q9967

== ENCOUNTER 2023-09-17 18:58 | Inpatient (IN) | payer MEDICARE, MEDICAID, SELFPAY ==
[2023-09-17] VITALS (27 sets, daily range): BP systolic 89–113; BP diastolic 32–43; PULSE 67–82; RESP 16–31; TEMP 36.5–36.9; O2SAT 91–100; BMI 25.7
--- NOTE | 2023-09-17 19:12 | ED_ITS ---
HPI - Altered Mental Status 2 General: Chief Complaint: Altered Mental Status Stated Complaint: ams Time Seen by Provider: 09/17/23 19:03 History of Present Illness: Patient presents with to the ER by EMS via altered mental status, patient was found this way about 2 and half hours ago was only getting worse. Patient is alert to verbal stimuli will not answer questions will not follow commands other than open your eyes and squeeze my fingers but only on the right side. Patient was seen yesterday for left-sided weakness that was improving and diagnosed with TIA and cervical dystonia and sent home. Patient does have multiple visits for TIA/CVA and had TNKase within the last month. Patient normally does not wear oxygen but is been put on 4 L per nasal cannula to keep her saturations upwards in the high 90s. EMS stated upon transfer here they looked in her mouth and noticed she had a tater tot in her airway. They removed it with no problem at this did not change anything. Patient is currently on Plavix. Patient had a full stroke workup yesterday including CT and CTA which was all negative. 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 Orthostatic hypotension Tardive dyskinesia DNR (do not resuscitate) Hypercholesterolemia Chronic obstructive pulmonary disease, unspecified Labyrinthitis Backache Bipolar affective disorder Arthropathy, unspecified HTN (hypertension) RLS (restless legs syndrome) Sleep apnea Peripheral vertigo Irritable bowel syndrome Aortic stenosis, severe Surgical History History of nasal surgery Status post aortic valve replacement with bioprosthetic valve History of abdominal hysterectomy H/O foot surgery H/O eye surgery H/O oral surgery Hx of cholecystectomy History of appendectomy Family History Other Hypertension Social History Smoking and tobacco/nicotine status: former use of tobacco/nicotine Quit status (tobacco/nicotine): has quit using Year quit tobacco: 1979 - ciggs x 6 Years Second hand smoke exposure: No Alcohol intake: never Substance/Drug Use: never Caregiver/support person: Yes Lives independently: Yes Household members: none Housing: House Marital status: / Current occupational status: retired and disabled Pets and animals: Yes Pets & animals: dog(s) Do you think of yourself as: Straight/Heterosexual Current gender identity: Female Physical Exam 2 Const: OTHER: Alert to verbal stimuli, will open eyes and squeeze right hand on command but will not follow any other commands. HENMT: COMMON NORMALS: normocephalic, atraumatic, Normal external nose present, moist oral mucous membranes and oropharynx normal HEAD & SCALP: n ormocephalic and atraumatic NOSE: Normal external nose present Eye: COMMON NORMALS: Equal, round and reactive pupils present, conjunctivae normal and no scleral icterus CONJUNCTIVA: Yes conjunctivae normal PUPIL: Yes Equal, round and reactive pupils present Neck/C-Spine: COMMON NORMALS: supple and no JVD Chest: COMMONS NORMALS: normal inspection of the chest and normal palpation of entire chest wall Resp: COMMON NORMALS: clear to auscultation bilaterally; negative for No use of accessory muscles (Supraclavicular retractions) A USCULTATION: clear to auscultation bilaterally Cardio: COMMON NORMALS: no JVD, regular rate, regular rhythm, S1 normal heart sound present, S2 normal heart sound present, No gallops present (Cardio), No clicks present (Cardio), No murmurs present (Cardio) and No rub (Cardio) R ATE: regular rate RHYTHM: regular rhythm HEART SOUNDS: S1 normal heart sound present and S2 normal heart sound present GI: COMMON NORMALS: Normal to inspection, nondistended, normoactive bowel sounds present, Soft to palpation, non-tender, No hepatosplenomegaly present and no masses PALPATION: Yes Soft to palpation and Yes No hepatosplenomegaly present Extremity: NARRATIVE EXTREMITY EXAM: No bilateral lower extremity edema, Neuro: OTHER: Alert to verbal stimuli, will open eyes and squeeze right hand to command. Retracts both lower extremities to pain. Course 2 ED course: Upon recheck patient patient's speech is improving she is now more alert and able answer simple questions follow some simple commands still will not use her left upper extremity when instructed to but can move it some otherwise. Patient still requiring 4 L of oxygen and still having supraclavicular retractions. Patient is normally not on any oxygen. Anticipate patient will be admitted for observation. Vital Signs: Vital signs: Vital Signs Temperature 97.7 F 09/17/23 18:59 Pulse Rate 77 09/17/23 21:40 Respiratory Rate 26 H 09/17/23 21:40 Blood Pressure 97/43 09/17/23 21:40 Pulse Oximetry 96 09/17/23 21:40 Oxygen Delivery Me thod Nasal Cannula 09/17/23 18:59 Oxygen Flow Rate 4 09/17/23 18:59 MDM - Altered Mental Status Medical Decision Making Discussed case with Dr. Jin, TNKase is contraindicated secondary to recent TNK use within the last month and atypical symptoms, while patient was here in ER waiting lab work patient's symptoms did start improving or she is able to use all extremities somewhat. Patient still will not follow commands with the left upper extremity however she will move it when not asked to move it. It is noted patient is not normally on oxygen today she is requiring 4 L of oxygen to keep her sat up in the 90s. X-ray of the right was read by the radiologist as mild bibasilar atelectasis and/or pneumonia. Patient's white count is slightly elevated. Will talk with Dr. Alicea we will admit this patient for further evaluation and treatment for pneumonia. Lab Data 09/17/23 19:55 09/17/23 19:[address] 09/17/23 19:16 IMPRESSION: No acute intracranial findings. ASSESSMENT: ASPECTS ([place] Stroke Program Early CT Score) is 10. Chest X-Ray 09/17/23 19:50 IMPRESSION: 1. Mild bibasilar atelectasis and/or pneumonia. 2. Stable sternotomy. 3. Increased heart size with mild cardiomegaly. Laboratory Results WBC 12.13 10^3/uL (3.29-11.43) H 09/17/23 19:55 RBC 4.20 10^6/uL (3.85-5.65) 09/17/23 19:55 Hgb 12.60 g/dL (11.27-16.99) 09/17/23 19:55 Hct 40.7 % (36-47) 09/17/23 19:55 MCV 96.9 fl (85-98) 09/17/23 19:55 MCH 30.0 pg (27-33) 09/17/23 19:55 MCHC 31.0 g/dL (30-55) 09/17/23 19:55 RDW 14.2 % (12.1-15.1) 09/17/23 19:55 Plt Count 180 10^3/cmm (157-399) 09/17/23 19:55 MPV 10.7 fL (7.4-10.4) H 09/17/23 19:55 Neut % (Auto) 69.2 % 09/17/23 19:55 Lymph % (Auto) 13.4 % 09/17/23 19:55 Will % (Auto) 14.2 % 09/17/23 19:55 Eos % (Auto) 1.9 % 09/17/23 19:55 Baso % (Auto) 0.5 % 09/17/23 19:55 Neut # (Auto) 8.39 10^3/uL (1.8-7.7) H 09/17/23 19:55 Lymph # (Auto) 1.6 10^3/uL (0.8-4.8) 09/17/23 19:55 Will # (Auto) 1.7 10^3/uL (0.2-0.9) H 09/17/23 19:55 Eos # (Auto) 0.2 10^3/uL (0.0-0.8) 09/17/23 19:55 Baso # (Auto) 0.1 10^3/uL (0.0-0.1) 09/17/23 19:55 Nucleated RBC % (auto) 0 % 09/17/23 19:55 Nucleated RBCs # 0.0 /100WBC 09/17/23 19:55 PT 14.80 SECONDS (12.1-14.9) 09/17/23 19:55 INR 1.12 (0.8-1.2) 09/17/23 19:55 APTT 30.7 SECONDS (23.9-36.7) 09/17/23 19:55 Specimen Type Arterial 09/17/23 20:05 Sample Site Brachial, right 09/17/23 20:05 ABG pH 7.38 (7.35-7.45) 09/17/23 20:05 ABG pCO2 44.0 mmHg (35-45) 09/17/23 20:05 ABG pO2 93.4 mmHg (80.0-100.0) 09/17/23 20:05 ABG HCO3 25.7 mmol/L (22-26) 09/17/23 20:05 ABG O2 Saturation 98.2 09/17/23 20:05 ABG Base Excess 0.3 mmol/L (-2.0-2.0) 09/17/23 20:05 Brian Test Pos 09/17/23 20:05 A-a O2 Gradient 0.0 mmHg (5-10) L 09/17/23 20:05 Hematocrit 34.9 % (37-47) L 09/17/23 20:05 Hgb O2 Saturation 96.1 % (95-100) 09/17/23 20:05 Carboxyhemoglobin 1.6 %THgb (0.4-20.1) 09/17/23 20:05 Methemoglobin 0.5 % (0.4-1.5) 09/17/23 20:05 Total Hemoglobin 11.4 g/dL (12-16) L 09/17/23 20:05 Sodium 137.0 mmol/L (131-143) 09/17/23 20:05 Potassium 4.5 mmol/L (3.5-5.0) 09/17/23 20:05 Glucose 151.0 mg/dL (70-115) H 09/17/23 20:05 Ionized Calcium 1.2 mmol/L (1.1-1.4) 09/17/23 20:05 O2 Delivery Device Nc 09/17/23 20:05 O2 Liters/Min 2.0 % 09/17/23 20:05 Solar Installation Technician ID [email or web address] 09/17/23 20:05 Sodium 133 mmol/L (136-145) L 09/17/23 19:55 Potassium 4.5 mmol/L (3.5-5.1) 09/17/23 19:55 Chloride 101 mmol/L (98-107) 09/17/23 19:55 Carbon Dioxide 20 mmol/L (22-29) L 09/17/23 19:55 Anion Gap 16.5 (5-19) 09/17/23 19:55 BUN 35 mg/dL (8-23) H 09/17/23 19:55 Creatinine 1.7 mg/dL (0.5-0.9) H 09/17/23 19:55 GFR Calculation Not Reportable 09/17/23 19:55 Glucose 146 mg/dL (65-115) H 09/17/23 19:55 POC Glucose 163 mg/dL (70-110) H 09/17/23 20:07 Calculated Osmolality 287 mOsm/kg (285-295) 09/17/23 19:55 Lactic Acid 1.9 mmol/L (0.5-2.2) 09/17/23 19:55 Calcium 8.3 mg/dL (8.5-10.5) L 09/17/23 19:55 Magnesium 2.1 mg/dL (1.7-2.3) 09/17/23 19:55 Total Bilirubin 0.6 mg/dL (0.15-1.2) 09/17/23 19:55 AST 13 U/L (0-32) 09/17/23 19:55 ALT 12 U/L (0-33) 09/17/23 19:55 Alkaline Phosphatase 87 U/L (35-105) 09/17/23 19:55 C-Reactive Protein 131.2 mg/L (0.0-4.9) H 09/17/23 19:55 NT-Pro-B Natriuret Pep 1403 pg/mL (0-450) H 09/17/23 19:55 Total Protein 6.2 g/dL (6.6-8.7) L 09/17/23 19:55 Albumin 3.1 g/dL (3.5-5.2) L 09/17/23 19:55 Globulin 3.1 g/dL (1.3-4.6) 09/17/23 19:55 Procalcitonin 0.18 ng/mL (0-0.5) 09/17/23 19:55 TSH 4.02 uIU/mL (0.27-4.20) 09/17/23 19:55 Urine Color Yellow (Yellow) 09/17/23 21:00 Urine Appearance Clear (CLEAR) 09/17/23 21:00 Urine pH 5 (5-7) 09/17/23 21:00 Ur Specific [place] 1.020 (1.005-1.030) 09/17/23 21:00 Urine Protein Trace (Negative) 09/17/23 21:00 Urine Glucose (UA) Norm (Normal) 09/17/23 21:00 Urine Ketones Negative (Negative) 09/17/23 21:00 Urine Blood Neg (Negative) 09/17/23 21:00 Urine Nitrate Negative (Negative) 09/17/23 21:00 Urine Bilirubin 1+ (Negative) H 09/17/23 21:00 Urine Urobilinogen Neg mg/dL (Negative) 09/17/23 21:00 Ur Leukocyte Esterase Negative (Negative) 09/17/23 21:00 Urine RBC None /hpf (0-2) 09/17/23 21:00 Urine WBC None /hpf (0-5) 09/17/23 21:00 Ur Squamous Epith Cells 0-4 /hpf (0-5) H 09/17/23 21:00 Amorphous Sediment Not Reportable 09/17/23 21:00 Urine Bacteria 2+ /hpf (NONE) H 09/17/23 21:00 Urine Mucus 3+ /hpf 09/17/23 21:00 Urine Opiates Screen Positive ng/mL (Negative) H 09/17/23 21:00 Ur Barbiturates Screen Negative ng/mL (Negative) 09/17/23 21:00 Ur Phencyclidine Scrn Negative ng/mL (Negative) 09/17/23 21:00 Ur Amphetamines Screen Negative ng/mL (Negative) 09/17/23 21:00 U Benzodiazepines Scrn Negative ng/mL (Negative) 09/17/23 21:00 Urine Cocaine Screen Negative ng/mL (Negative) 09/17/23 21:00 U Marijuana (THC) Screen Negative ng/mL (Negative) 09/17/23 21:00 All radiology interpretation(s) finalized by discharge Discharge Plan Discharge Patient Disposition: Admitted As Inpatient Admit Provider: Gayle Alicea Clinical Impression: Acute hypoxemic respiratory failure Pneumonia Qualifiers: Pneumonia type: due to unspecified organism Laterality: bilateral Lung location: lower lobe of lung Qualified Code(s): J18.9 - Pneumonia, unspecified organism Altered mental status Qualifiers: Altered mental status type: transient alteration of awareness Qualified Code(s): R40.4 - Transient alteration of awareness Condition: Stable Coding Level of Care Code ED Telephone 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
--- NOTE | 2023-09-17 19:16 | CTR_ITS ---
PROCEDURE INFORMATION: Exam: CT Head Without Contrast Exam date and time: 09/17/2023 7:27 PM Age: 78 years old Clinical indication: Stroke-like symptoms; Altered mental status/memory loss; Additional info: Symptoms of acute stroke TECHNIQUE: Imaging protocol: Computed tomography of the head without contrast. Radiation optimization: All CT scans at this facility use at least one of these dose optimization techniques: automated exposure control; mA and/or kV adjustment per patient size (includes targeted exams where dose is matched to clinical indication); or iterative reconstruction. Other technique: STROKE PROTOCOL was implemented. COMPARISON: CT angio headneck* [id number] 09/16/2023 3:13 PM RADIATION DOSE METRICS: Total DLP (mGy-cm): 1021.78 FINDINGS: Brain: Mild cerebral atrophy and ischemic leukoencephalopathy. Cerebral ventricles: No ventriculomegaly. Paranasal sinuses: Visualized sinuses are unremarkable. No fluid levels. Mastoid air cells: Visualized mastoid air cells are well aerated. Bones: Unremarkable. No acute fracture. Soft tissues: Unremarkable. Other findings: Severe calcified intracranial atherosclerotic vessel disease. CT/CT head thrombolytic [id number] IMPRESSION: No acute intracranial findings. ASSESSMENT: ASPECTS ([facility] Stroke Program Early CT Score) is 10.
--- NOTE | 2023-09-17 19:16 | ECG_ITS ---
[facility] Test Date: 2023-09-17 Pat Name: Imer Brasher Department: Room: Gender: Female Guest Services Assistant: : 1945 Requested By: Gage Rosales Order Number: [id number] Gregory MD: Caesar Robertson M.D. Measurements Intervals [place] Rate: 71 P: 46 RI: 137 QRS: -36 QRSD: 134 T: 74 QT: 415 QTc: 453 Interpretive Statements SINUS RHYTHM POSSIBLE LEFT ATRIAL ENLARGEMENT [-0.1mV P-WAVE IN V1/V2] LEFT AXIS DEVIATION [QRS AXIS < -30] RIGHT BUNDLE BRANCH BLOCK [120+ ms QRS DURATION, UPRIGHT V1, 40+ ms S IN I/aVL/V4/V5/V6] POSSIBLE LEFT VENTRICULAR HYPERTROPHY [VOLTAGE CRITERIA PLUS LAE OR QRS WIDENING] Compared to ECG 09/16/2023 14:23:21 Left-axis deviation now present Left anterior fascicular block no longer present Electronically Signed On 09-18-2023 13:09:23 CDT by Caesar Robertson M.D. [email or web address]
--- NOTE | 2023-09-17 19:50 | XRR_ITS ---
PROCEDURE INFORMATION: Exam: XR Chest Exam date and time: 09/17/2023 8:46 PM Age: 78 years old Clinical indication: Shortness of breath; Additional info: Dyspnea TECHNIQUE: Imaging protocol: Radiologic exam of the chest. Views: 1 view. COMPARISON: CR XR chest 1V portable [id number] 09/16/2023 2:29 PM FINDINGS: Lungs: Mild bibasilar atelectasis and/or pneumonia. Pleural spaces: Unremarkable. No pleural effusion. No pneumothorax. Heart/Mediastinum: Increased heart size with mild cardiomegaly. Bones/joints: Stable sternotomy. XR/XR chest 1V portable [id number] IMPRESSION: 1. Mild bibasilar atelectasis and/or pneumonia. 2. Stable sternotomy. 3. Increased heart size with mild cardiomegaly.
--- NOTE | 2023-09-17 19:51 | PC.NURSE ---
We contacted via phone person to notify, Clint Brasher, pt sister, to verify DNR code status. RN informed her of the OHDNR and wanted to verify DNR code status while in the ER, Clint verbally verified pt is a DNR via phone verified with Kathrin MUIR and Evonne MUIR
[2023-09-17 20:04] LABS: Basophils # 0.1 10^3/uL (0.0-0.1); Basophils % 0.5 %; Eosinophils # 0.2 10^3/uL (0.0-0.8); Eosinophils % 1.9 %; Hematocrit 40.7 % (36-47); Lymphocytes # 1.6 10^3/uL (0.8-4.8); Lymphocytes % 13.4 %; Mean Corpuscular Volume 96.9 fl (85-98); Mean Platelet Volume 10.7 fL (7.4-10.4); Monocytes # 1.7 10^3/uL (0.2-0.9); Monocytes % 14.2 %; Neutrophils # 8.39 10^3/uL (1.8-7.7); Neutrophils % 69.2 %; Nucleated Red Blood Cells % 0 %; Platelet Count 180 10^3/cmm (157-399); Red Cell Distribution Width 14.2 % (12.1-15.1); White Blood Count 12.13 10^3/uL (3.29-11.43)
[2023-09-17 20:11] LABS: ABG PH Result 7.38 (7.35-7.45); Arterial Blood Gas Hematocrit 34.9 % (37-47); Base Excess ABG 0.3 mmol/L (-2.0-2.0); Blood Gas Allen Test Pos; Blood Gas Sample Site Brachial, right; Blood Gas Sample Type Arterial; Carboxyhemoglobin 1.6 %THgb (0.4-20.1); HCO3 ABG 25.7 mmol/L (22-26); HGB O2 Sat 96.1 % (95-100); Ionized Calcium Level - ABG 1.2 mmol/L (1.1-1.4); Methemoglobin 0.5 % (0.4-1.5); Oxygen Device NC; Oxygen Saturation ABG 98.2; PO2 ABG 93.4 mmHg (80.0-100.0); Potassium Level - ABG 4.5 mmol/L (3.5-5.0); Total Hemoglobin 11.4 g/dL (12-16)
[2023-09-17 20:13] LABS: Glucose Point of Care 163 mg/dL (70-110)
[2023-09-17 20:22] LABS: INR 1.12 (0.8-1.2)
[2023-09-17 20:23] LABS: Lactic Sepsis W/Reflex 1.9 mmol/L (0.5-2.2); Partial Thromboplastin Time 30.7 SECONDS (23.9-36.7)
[2023-09-17 20:34] LABS: NT Pro B Type Natriuretic Pept 1403 pg/mL (0-450); Procalcitonin 0.18 ng/mL (0-0.5); Thyroid Stimulating Hormone 4.02 uIU/mL (0.27-4.20)
[2023-09-17 20:45] LABS: Alanine Aminotransferase 12 U/L (0-33); Albumin Level 3.1 g/dL (3.5-5.2); Alkaline Phosphatase 87 U/L (35-105); Anion Gap 16.5 (5-19); Aspartate Amino Transferase 13 U/L (0-32); Blood Urea Nitrogen 35 mg/dL (8-23); C Reactive Protein 131.2 mg/L (0.0-4.9); Calcium 8.3 mg/dL (8.5-10.5); Carbon Dioxide 20 mmol/L (22-29); Chloride 101 mmol/L (98-107); Globulin 3.1 g/dL (1.3-4.6); Glucose 146 mg/dL (65-115); Magnesium 2.1 mg/dL (1.7-2.3); Osmolality Calculated 287 mOsm/kg (285-295); Potassium 4.5 mmol/L (3.5-5.1); Sodium 133 mmol/L (136-145); Total Bilirubin 0.6 mg/dL (0.15-1.2); Total Protein 6.2 g/dL (6.6-8.7)
[2023-09-17 21:20] LABS: Amphetamines Screen Urine Negative (Negative); Barbiturates Screen Urine Negative (Negative); Benzodiazepines Screen Urine Negative (Negative); Cocaine Screen Urine Negative (Negative); Opiate Screen Urine Positive (Negative); PCP Screen Urine Negative (Negative); THC Screen Urine Negative (Negative)
[2023-09-17 21:36] LABS: Add Urine Microscopic? YES; Bilirubin Urine 1+ (Negative); Blood Urine Neg (Negative); Glucose Urine UA Norm (Normal); Ketones Urine Negative (Negative); Leukocyte Esterase Urine Negative (Negative); Nitrate Urine Negative (Negative); Protein Urine Trace (Negative); Urine Appearance Clear (CLEAR); Urine Color Yellow (Yellow); Urobilinogen Urine Neg (Negative); pH Urine 5 (5-7)
[2023-09-17 21:37] LABS: Add Urine Culture? No; Bacteria Urine 2+ /hpf; Mucus Urine 3+ /hpf; Squamous Epithelial Cell Urine 0-4 /hpf (0-5)
[2023-09-17] MEDS: piperacillin-tazobactam 3.375 GM in sodium chloride 0.9% (plus) 50 ML IV (22:46)
--- NOTE | 2023-09-17 23:22 | PM.HP ---
Providers/Chief Complaint Admitting Physician: Gayle Alicea MD Chief Complaint: ams History of Present Illness Imer Brasher is a 78 year old female With past medical history of orthostatic hypotension, hypercholesterolemia, COPD, labyrinthitis, bipolar disorder, hypertension, obstructive sleep apnea, aortic stenosis status post aortic valve replacement presented to the hospital with complaint of altered mental status. She was found like this 2-1/2 hours ago and was worsening. She was alert and responsive to verbal stimuli however did not answer any questions and did not follow any other commands. She was seen yesterday for left-sided weakness that was improving and diagnosed with TIA and cervical dystonia and sent back to long term. She does have multiple visits for TIA/stroke and has had TNKase within the last month. She was also transferred to [facility] recently for inpatient neurology care and was discharged to long term. She is not on any oxygen at home however requiring 4 L nasal cannula in the hospital. There was a tater tot in her airway when EMS arrived however that was removed. Patient has had a full stroke workup done yesterday CT, CTA was negative. Her case was discussed with Dr. Jin today by ER doctor over the phone. Patient is not a candidate for any TNKase since she had it last month. Eventually patient was able to follow commands. When seen in the room she is able to follow commands answer questions. She is alert oriented x 3. Knows where she is knows what is going on. He does appear quite weak. At first she tells me she cannot move her left arm however subsequently was able to squeeze my finger and lift her hand off the bed. Chest x-ray done today does show mild bibasilar atelectasis versus pneumonia. WBC count 12.13. Creatinine 1.7, C-reactive protein 131, BNP 1400. Urine drug screen positive for opioids. Urinalysis positive for 2+ bacteria negative for nitrates and leukocyte esterase. Patient denies nausea vomiting diarrhea at this time. Medications/Allergies Home Medications Medication Instructions Recorded Confirmed Last Taken Type acyclovir 800 mg tablet 800 mg PO DAILY 08/27/23 09/16/23 09/16/23 History aspirin 81 mg tablet,delayed 81 mg PO QAM 08/27/23 09/16/23 09/16/23 History release diphenhydramine HCl 25 mg tablet 25 mg PO BEDTIME 08/27/23 09/16/23 09/15/23 History hydrocodone 5 mg-acetaminophen 325 1 tab PO Q6H PRN Pain 08/27/23 09/16/23 09/16/23 History mg tablet hydroxyzine HCl 25 mg tablet 25 mg PO BID PRN Itching 08/27/23 09/16/23 Unknown History omeprazole 40 mg capsule,delayed 40 mg PO QAM 08/27/23 09/16/23 09/16/23 History release peg 400-propylene glycol (PF) 0.4 1 drp ophthalmic (eye) QID PRN Dry 08/27/23 09/16/23 09/03/23 History %-0.3 % eye drops in a dropperette Eyes (Systane (PF)) tizanidine 4 mg tablet 4 mg PO TID PRN muscle spasms 08/27/23 09/16/23 09/16/23 History acetaminophen 325 mg tablet 650 mg PO Q4H PRN GENERAL 09/16/23 09/16/23 09/04/23 History DISCOMFORT acetaminophen 325 mg tablet 650 mg PO Q6H PRN Pain 09/16/23 09/16/23 Unknown History albuterol sulfate 2.5 mg/3 mL 2.5 mg inhalation Q6H PRN 09/16/23 09/16/23 Unknown History (0.083 %) solution for nebulization Shortness Of Breath amlodipine 10 mg tablet 10 mg PO QAM 09/16/23 09/16/23 Unknown History atorvastatin 80 mg tablet 80 mg PO QPM 09/16/23 09/16/23 09/16/23 History azelastine 137 mcg (0.1 %) nasal 1 spray intranasal BID PRN RHINITIS 09/16/23 09/16/23 Unknown History spray aerosol clopidogrel 75 mg tablet 75 mg PO QAM 09/16/23 09/16/23 09/16/23 History fluticasone propionate 50 2 spray intranasal Q12H PRN 09/16/23 09/16/23 Unknown History mcg/actuation nasal RHINITIS spray,suspension lisinopril 20 mg tablet 20 mg PO QAM 09/16/23 09/16/23 09/16/23 History meclizine 25 mg tablet 25 mg PO Q8H PRN Dizziness 09/16/23 09/16/23 Unknown History metoprolol succinate 50 mg 50 mg PO QAM 09/16/23 09/16/23 09/16/23 History tablet,extended release 24 hr oxybutynin chloride 5 mg tablet 5 mg PO QAM 09/16/23 09/16/23 09/16/23 History prednisone 10 mg tablet 30 mg PO DAILY 09/16/23 09/16/23 09/13/23 History ropinirole 0.5 mg tablet 0.5 mg PO BID 09/16/23 09/16/23 09/16/23 History Allergies Allergy/AdvReac Type Severity Reaction Status Date / Time No Known Drug Allergies Allergy Unknown Verified 09/16/23 14:19 PFSH Acute PFSH: Medical History 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 Orthostatic hypotension Tardive dyskinesia DNR (do not resuscitate) Hypercholesterolemia Chronic obstructive pulmonary disease, unspecified Labyrinthitis Backache Bipolar affective disorder Arthropathy, unspecified HTN (hypertension) RLS (restless legs syndrome) Sleep apnea Peripheral vertigo Irritable bowel syndrome Aortic stenosis, severe Surgical History History of nasal surgery Status post aortic valve replacement with bioprosthetic valve History of abdominal hysterectomy H/O foot surgery H/O eye surgery H/O oral surgery Hx of cholecystectomy History of appendectomy Family History Other Hypertension Social History Smoking and tobacco/nicotine status: former use of tobacco/nicotine Quit status (tobacco/nicotine): has quit using Year quit tobacco: 1979 - ciggs x 6 Years Second hand smoke exposure: No Alcohol intake: never Substance/Drug Use: never Caregiver/support person: Yes Lives independently: Yes Household members: none Housing: House Marital status: / Current occupational status: retired and disabled Pets and animals: Yes Pets & animals: dog(s) Do you think of yourself as: Straight/Heterosexual Current gender identity: Female Vitals/I&O/Wt Last Vital Signs Temp 97.7 F 09/17/23 18:59 Pulse 77 09/17/23 21:40 Resp 26 H 09/17/23 21:40 BP 97/43 09/17/23 21:40 Pulse Ox 96 09/17/23 21:40 O2 Del Method Nasal Cannula 09/17/23 18:59 O2 Flow Rate 4 09/17/23 18:59 Weight last 48 hrs Weight 65.771 kg Physical Exam Narrative: General: Alert oriented x3, patient seen laying in bed appearing comfortable however appears weak, on 2 L nasal cannula. Saturating 94%. HEENT: Normocephalic, atraumatic, EOMI, no acute respiratory distress. Cardio: Regular rate rhythm, normal S1-S2 Respiratory: Good bilateral air entry, no wheezes no rhonchi appreciated GI: Abdomen soft, nontender, nondistended, bowel sounds + Extremities: Cranial nerves II to XII intact. Mild slurred speech however able to understand patient. Right upper extremity 5 out of 5, bilateral lower extremities 4 out of 5 strength. Left upper extremities 2 out of 5. She is able to move her left arm however states that she cannot. Patient able to lift hand off of bed. Secondary to weakness could not do [id number] or finger-nose. Data 09/17/23 19:55 09/17/23 19:55 Micro: Microbiology 09/17/23 23:01 Blood Culture - Preliminary Blood SPECIMEN COLLECTED 09/17/23 22:57 Blood Culture - Preliminary Blood SPECIMEN COLLECTED A&P Assessment and plan (1) DNR (do not resuscitate): (2) HTN (hypertension): Qualifiers: Hypertension type: essential hypertension Qualified Code(s): I10 - Essential (primary) hypertension (3) Status post aortic valve replacement with bioprosthetic valve: (4) Demyelinating disease of central nervous system: (5) Chronic obstructive pulmonary disease, unspecified: Qualifiers: COPD type: unspecified COPD Qualified Code(s): J44.9 - Chronic obstructive pulmonary disease, unspecified (6) Acute respiratory failure with hypoxia: (7) Shortness of breath: (8) Pneumonia: Qualifiers: Laterality: bilateral Lung location: lower lobe of lung Pneumonia type: due to unspecified organism Qualified Code(s): J18.9 - Pneumonia, unspecified organism (9) At risk for aspiration: (10) Generalized weakness: (11) Physical deconditioning: (12) Multiple falls: Plan #Multiple falls #Recent CVA #Multiple TIAs #Hypertension #Status post aortic valve replacement #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 Patient seems neurology as an outpatient. Patient was to go back to neuro for possible Botox injections. She was recommended [place] however he will like to hold off on the medication at this time. She does have recurrent falls. Recently was at [facility] and treated for stroke. She did receive TNKase. Does have a history of tardive dyskinesia. Patient unable to care for herself or her current condition and was sent to long term. ? Patient not a candidate for TNKase today. At first could not move her arm however now she can. Possible TIA?. ? Continue aspirin atorvastatin, metoprolol lisinopril. ? Continue blood pressure medications ? Last echo 2021 showed EF of 75% grade 1 diastolic dysfunction bioprosthetic aortic valve with peak gradient of 32. ? Patient to follow-up with Dr. Jin as an outpatient ? Possible COPD exacerbation versus pneumonia. There is atelectasis versus infiltrates on x-ray. Will place on ceftriaxone azithromycin. With surgical for MRSA coverage. She is hypoxic requiring 2 L nasal cannula. She desats down to mid 80s without oxygen. Possibility of COPD flare. Will add Solu-Medrol 40 every 12 hours. ? Check sputum Gram stain culture ? Check blood cultures ? Place normal saline 75 cc/h - Neuro checks q2h ? Patient does have history of mild dysphagia. I would keep her n.p.o. for now until nursing dysphagia screen. May even require formal speech swallow evaluation. DNR/DNI as confirmed by patient, long term paperwork and patient's family. Patient's nurse talk to patient's family earlier. Attestations Medical Necessity Statement*: Greater than 2 midnight stay for management of pneumonia, weakness, creatinine Diagnoses DNR (do not resuscitate) Z66 Essential hypertension I10 Hypertension type: essential hypertension Status post aortic valve replacement with bioprosthetic valve Z95.3 Demyelinating disease of central nervous system G37.9 Chronic obstructive pulmonary disease, unspecified COPD type J44.9 COPD type: unspecified COPD Acute respiratory failure with hypoxia J96.01 Shortness of breath R06.02 Pneumonia J18.9 Laterality: bilateral Lung location: lower lobe of lung Pneumonia type: due to unspecified organism At risk for aspiration Z91.89 Generalized weakness R53.1 Physical deconditioning R53.81 Multiple falls R29.6
[2023-09-18] VITALS (11 sets, daily range): BP systolic 106–152; BP diastolic 49–77; PULSE 71–96; RESP 18–31; TEMP 36.3–37.2; O2SAT 93–99
[2023-09-18 00:05] LABS: Procalcitonin 0.18 ng/mL (0-0.5); Thyroid Stimulating Hormone 2.15 uIU/mL (0.27-4.20)
[2023-09-18] MEDS: methylPREDNISolone sod succ 40 mg/mL INJ IVP (00:15)
[2023-09-18] MEDS: heparin 5,000 unit/mL INJ 1 mL 5000 UNIT SUBCUT ×3 (00:15→23:39)
[2023-09-18] MEDS: sodium chloride 0.9% 1,000 ML 75 ML IV (00:15)
[2023-09-18 05:13] LABS: Basophils % 0.2 %; Eosinophils % 0.3 %; Hematocrit 39.8 % (36-47); Lymphocytes # 0.7 10^3/uL (0.8-4.8); Lymphocytes % 5.4 %; Mean Corpuscular HGB Conc 31.9 g/dL (30-55); Mean Corpuscular Hemoglobin 29.9 pg (27-33); Mean Corpuscular Volume 93.6 fl (85-98); Mean Platelet Volume 11.4 fL (7.4-10.4); Monocytes # 0.5 10^3/uL (0.2-0.9); Monocytes % 4.2 %; Neutrophils # 11.02 10^3/uL (1.8-7.7); Neutrophils % 89.3 %; Nucleated Red Blood Cells % 0 %; Platelet Count 169 10^3/cmm (157-399); Red Blood Count 4.25 10^6/uL (3.85-5.65); Red Cell Distribution Width 13.9 % (12.1-15.1); White Blood Count 12.36 10^3/uL (3.29-11.43)
[2023-09-18 05:36] LABS: Alanine Aminotransferase 12 U/L (0-33); Albumin Level 3.2 g/dL (3.5-5.2); Alkaline Phosphatase 88 U/L (35-105); Anion Gap 13.2 (5-19); Aspartate Amino Transferase 15 U/L (0-32); Blood Urea Nitrogen 31 mg/dL (8-23); Calcium 8.6 mg/dL (8.5-10.5); Carbon Dioxide 25 mmol/L (22-29); Chloride 103 mmol/L (98-107); Globulin 3.1 g/dL (1.3-4.6); Glucose 141 mg/dL (65-115); Osmolality Calculated 293 mOsm/kg (285-295); Potassium 4.2 mmol/L (3.5-5.1); Sodium 137 mmol/L (136-145); Total Bilirubin 0.8 mg/dL (0.15-1.2); Total Protein 6.3 g/dL (6.6-8.7)
[2023-09-18 05:40] LABS: Creatinine Clr Calc Pharmacy 29.8193
[2023-09-18] MEDS: piperacillin-tazobactam 3.375 GM in sodium chloride 0.9% (plus) 50 ML IV ×3 (06:36→23:38)
--- NOTE | 2023-09-18 08:19 | PC.NURSE ---
Dr Rojas in to see patient. Received verbal order for nursing bedside swallow eval. Patient tolerated water well at this time without s/s of choking or aspiration. Received verbal order for clear liquid diet. RBVO
--- NOTE | 2023-09-18 09:57 | PM.PN ---
Subjective Subjective: Speech therapy requested I will allow her to have clear liquids for now Patient extremely dehydrated I do not see any focal deficit at the time of evaluation Patient is not endorsing new complaints She is aware that she was sent to the hospital for possible stroke Vitals/I&O/Wt Last Vital Signs Temp 97.3 F L 09/18/23 07:50 Pulse 96 09/18/23 07:51 Resp 18 09/18/23 07:51 BP 152/64 09/18/23 07:50 Pulse Ox 98 09/18/23 07:51 O2 Del Method Nasal Cannula 09/18/23 07:51 O2 Flow Rate 2 09/18/23 07:51 09/17/23 09/18/23 09/18/23 22:59 06:59 14:59 Intake Total 50 / 50 180 / 180 Balance 50 / 50 180 / 180 Weight last 48 hrs Weight 69.4 kg Weight 70.931 kg Weight 65.771 kg Physical Exam Narrative: Patient is stating that she has left-sided weakness She is able to follow commands Awake and alert She does have suctioning her hand Appears to have dysphagia Slurring of speech Extremely dehydrated S1, S2 Hemodynamic stable Currently on 2 L nasal cannula Good strength of upper and lower extremities Left upper extremity weak as compared to right Data 09/18/23 04:04 09/18/23 04:04 Micro: Microbiology 09/17/23 23:01 Blood Culture - Preliminary Blood SPECIMEN COLLECTED 09/17/23 22:57 Blood Culture - Preliminary Blood SPECIMEN COLLECTED A&P Assessment and plan (1) DNR (do not resuscitate): (2) Bipolar affective disorder: (3) HTN (hypertension): Qualifiers: Hypertension type: essential hypertension Qualified Code(s): I10 - Essential (primary) hypertension (4) Postoperative atrial fibrillation: (5) Dysphagia: (6) Acute kidney injury: (7) Transient cerebral ischemia: (8) Left acute arterial ischemic stroke, MCA (middle cerebral artery): (9) Restrictive lung disease: (10) At risk for aspiration: (11) Pneumonia: Qualifiers: Laterality: bilateral Lung location: lower lobe of lung Pneumonia type: due to unspecified organism Qualified Code(s): J18.9 - Pneumonia, unspecified organism (12) Acute hypoxemic respiratory failure: (13) Neurologic gait disorder: (14) Physical deconditioning: (15) Generalized weakness: (16) Multiple falls: Plan 78-year-old female who presented from the intermediate with concern related to stroke, patient was experiencing slurred speech with upper extremity weakness which improved by the time she was seen in the ER, she was deemed not a tPA candidate she was recently seen at [facility] where she was given TNKase, patient is still compliant with her medication or dual antiplatelet therapy, at this point she is suffering from dysphagia concern is related to aspiration pneumonia Aspiration pneumonia related to recent stroke TIA noticed during this visit, no new focal deficit She is DNI/DNI Will request speech therapy Hold use clear liquid diet for now Continue dual antiplatelet therapy Continue PT OT and ST Continue antibiotic for aspiration pneumonia Acute hypoxia likely related to aspiration Oxygen has been weaned down to 2 L at this point We will go back to intermediate likely over the weekend Attestations Medical Necessity Statement*: Continue medical management Diagnoses DNR (do not resuscitate) Z66 Bipolar affective disorder F31.9 Essential hypertension I10 Hypertension type: essential hypertension Postoperative atrial fibrillation I97.89; I48.91 Dysphagia R13.10 Acute kidney injury N17.9 Transient cerebral ischemia G45.9 Left acute arterial ischemic stroke, MCA (middle cerebral artery) I63.512 Restrictive lung disease J98.4 At risk for aspiration Z91.89 Pneumonia J18.9 Laterality: bilateral Lung location: lower lobe of lung Pneumonia type: due to unspecified organism Acute hypoxemic respiratory failure J96.01 Neurologic gait disorder R26.9 Physical deconditioning R53.81 Generalized weakness R53.1 Multiple falls R29.6
[2023-09-18] MEDS: pantoprazole DR 40 mg Tablet PO (10:30)
[2023-09-18] MEDS: amlodipine 10 mg Tablet PO (10:30)
[2023-09-18] MEDS: lisinopril 20 mg Tablet PO (10:30)
[2023-09-18] MEDS: sennosides-docusate Tablet 2 TAB PO ×2 (10:30→17:04)
--- NOTE | 2023-09-18 14:50 | PC.NURSE ---
Patient requesting to have a muscle relaxer. Informed Dr Rojas that patient has on her med rec. Received telephone order to start tizanidine as per med rec. RBVO
[2023-09-18] MEDS: tizanidine 4 mg Tablet PO (14:58)
[2023-09-18] MEDS: ropinirole 0.25 mg Tablet 0.5 MG PO (17:04)
[2023-09-18] MEDS: atorvastatin 40 mg Tablet 80 MG PO (17:04)
--- NOTE | 2023-09-18 18:00 | P.CONIM_ITS ---
Providers/Reason For Consult 2 Consulting Physician/Specialty*: General surgery Reason for Consult*: Need for feeding access Attending Physician: Elkin Mayers MD History of Present Illness History of Present Illness Imer Brasher is a 78 year old female Who is admitted to the hospital due to stroke, she has been deemed unable to feed herself due to choking. I have been consulted for evaluation for PEG tube placement. On my evaluation patient stated that she is agreeable to proceed with PEG tube placement, understands all the risk and benefits of the procedure and possible implications in the long- term with feeding access. Review of Systems 2 General: Reports: 10 or more systems reviewed and unremarkable except in HPI and below Medications/Allergies Home Medications Medication Instructions Recorded Confirmed Last Taken Type acyclovir 800 mg tablet 800 mg PO DAILY 08/27/23 09/18/23 09/16/23 History aspirin 81 mg tablet,delayed 81 mg PO QAM 08/27/23 09/18/23 09/16/23 History release diphenhydramine HCl 25 mg tablet 25 mg PO BEDTIME 08/27/23 09/18/23 09/15/23 History hydrocodone 5 mg-acetaminophen 325 1 tab PO Q6H PRN Pain 08/27/23 09/18/23 09/16/23 History mg tablet hydroxyzine HCl 25 mg tablet 25 mg PO BID PRN Itching 08/27/23 09/18/23 Unknown History omeprazole 40 mg capsule,delayed 40 mg PO QAM 08/27/23 09/18/23 09/16/23 History release peg 400-propylene glycol (PF) 0.4 1 drp ophthalmic (eye) QID PRN Dry 08/27/23 09/18/23 09/03/23 History %-0.3 % eye drops in a dropperette Eyes (Systane (PF)) tizanidine 4 mg tablet 4 mg PO TID PRN muscle spasms 08/27/23 09/18/23 09/16/23 History acetaminophen 325 mg tablet 650 mg PO Q6H PRN Pain 09/16/23 09/18/23 Unknown History albuterol sulfate 2.5 mg/3 mL 2.5 mg inhalation Q6H PRN 09/16/23 09/18/23 Unknown History (0.083 %) solution for nebulization Shortness Of Breath amlodipine 10 mg tablet 10 mg PO QAM 09/16/23 09/18/23 Unknown History atorvastatin 80 mg tablet 80 mg PO QPM 09/16/23 09/18/23 09/16/23 History azelastine 137 mcg (0.1 %) nasal 1 spray intranasal BID PRN RHINITIS 09/16/23 09/18/23 Unknown History spray aerosol clopidogrel 75 mg tablet 75 mg PO QAM 09/16/23 09/18/23 09/16/23 History fluticasone propionate 50 2 spray intranasal Q12H PRN 09/16/23 09/18/23 Unknown History mcg/actuation nasal RHINITIS spray,suspension lisinopril 20 mg tablet 20 mg PO QAM 09/16/23 09/18/23 09/16/23 History meclizine 25 mg tablet 25 mg PO Q8H PRN Dizziness 09/16/23 09/18/23 Unknown History metoprolol succinate 50 mg 50 mg PO QA 09/16/23 09/18/23 09/16/23 History tablet,extended release 24 hr oxybutynin chloride 5 mg tablet 5 mg PO QAM 09/16/23 09/18/23 09/16/23 History ropinirole 0.5 mg tablet 0.5 mg PO BID 09/16/23 09/18/23 09/16/23 History Allergies Allergy/AdvReac Type Severity Reaction Status Date / Time No Known Drug Allergies Allergy Unknown Verified 09/16/23 14:19 Current Medications Generic Name Dose Route Start Last Admin Trade Name Freq PRN Reason Stop Dose Admin Amlodipine Besylate 10 mg 09/18/23 10:10 09/18/23 10:30 Amlodipine 10 Mg Tablet PO 10 mg QAM COUNTS INCLUDE 234 BEDS AT THE [facility] Administration Aspirin 81 mg 09/18/23 06:00 09/18/23 05:04 Aspirin 81 Mg Ec Tablet PO Not Given QAM MACHELLE Atorvastatin Calcium 80 mg 09/18/23 18:00 09/18/23 17:04 Atorvastatin 40 Mg Tablet PO 80 mg QPM MACHELLE Administration Clopidogrel Bisulfate 75 mg 09/18/23 06:00 09/18/23 05:05 Clopidogrel 75 Mg Tablet PO Not Given QAM COUNTS INCLUDE 234 BEDS AT THE [facility] Heparin Sodium (Porcine) 5,000 unit 09/17/23 23:30 09/18/23 10:30 Heparin 5,000 Unit/Ml Inj 1 Ml SUBCUT 5,000 unit Q12H MACHELLE Administration Piperacillin Sod/Tazobactam 50 mls @ 12.5 mls/hr 09/18/23 07:00 09/18/23 14:47 Sod 3.375 gm/ Sodium Chloride IV 12.5 mls/hr Q8H MACHELLE Infusion Lisinopril 20 mg 09/18/23 10:10 09/18/23 10:30 Lisinopril 20 Mg Tablet PO 20 mg QAM MACHELLE Administration Pantoprazole Sodium 40 mg 09/18/23 09:00 09/18/23 10:[address] 40 Mg Tablet PO 40 mg DAILY MACHELLE Administration Ropinirole HCl 0.5 mg 09/18/23 18:00 09/18/23 17:04 Ropinirole 0.25 Mg Tablet PO 0.5 mg BID MACHELLE Administration Senna/Docusate Sodium 2 tab 09/18/23 09:00 09/18/23 17:04 Sennosides-Docusate Tablet PO 2 tab BID MACHELLE Administration Tizanidine HCl 4 mg 09/18/23 14:48 09/18/23 14:58 Tizanidine 4 Mg Tablet PO 4 mg TID PRN Administration muscle spasms PFSH Acute 2 PFSH: Medical History tPA adm status 24 hr [employer] July 2023 Orthostatic hypotension Tardive dyskinesia DNR (do not resuscitate) Hypercholesterolemia Chronic obstructive pulmonary disease, unspecified Labyrinthitis Backache Bipolar affective disorder Arthropathy, unspecified HTN (hypertension) RLS (restless legs syndrome) Sleep apnea Peripheral vertigo Irritable bowel syndrome Aortic stenosis, severe Surgical History History of nasal surgery Status post aortic valve replacement with bioprosthetic valve History of abdominal hysterectomy H/O foot surgery H/O eye surgery H/O oral surgery Hx of cholecystectomy History of appendectomy Family History Other Hypertension Social History Smoking and tobacco/nicotine status: former use of tobacco/nicotine Quit status (tobacco/nicotine): has quit using Year quit tobacco: 1979 - ciggs x 6 Years Second hand smoke exposure: No Alcohol intake: never Substance/Drug Use: never Caregiver/support person: Yes Lives independently: Yes Household members: none Housing: House Marital status: / Current occupational status: retired and disabled Pets and animals: Yes Pets & animals: dog(s) Do you think of yourself as: Straight/Heterosexual Current gender identity: Female Vitals/I&O/Wt Last Vital Signs Temp 97.7 F 09/18/23 16:00 Pulse 92 09/18/23 16:46 Resp 25 H 09/18/23 16:00 BP 106/52 09/18/23 16:00 Pulse Ox 93 09/18/23 16:00 O2 Del Method Room Air 09/18/23 16:00 O2 Flow Rate 2 09/18/23 07:51 09/18/23 09/18/23 09/18/23 06:59 14:59 22:59 Intake Total 50 / 50 997.042 / 997.042 240 / 1237.042 Balance 50 / 50 997.042 / 997.042 240 / 1237.042 Weight last 48 hrs Weight 153 lb Weight 156 lb 6 oz Weight 145 lb Physical Exam 2 Narrative: General : Patient is well developed , no acute distress, oriented x3 Head : Normal cephalic, a-traumatic. Nose : Mucous membranes are without erythema. Lungs : Equal chest rise bilaterally, no use of accessory muscles, trachea is midline. CV : Rate and rhythm are normal. Abdomen : Soft, ND, NT, no g/r/m From the neurological standpoint patient appears to have a motor deficit as well as mild dysarthria. Data 09/18/23 04:04 09/18/23 04:04 Micro: Microbiology 09/17/23 23:01 Blood Culture - Preliminary Blood SPECIMEN COLLECTED 09/17/23 22:57 Blood Culture - Preliminary Blood SPECIMEN COLLECTED A&P Assessment and plan (1) Status post aortic valve replacement with bioprosthetic valve: (2) Left acute arterial ischemic stroke, MCA (middle cerebral artery): Plan After complete history physical examination and review of all available clinical data I have decided to offer the patient a PEG tube placement for feeding access. I have discussed with the patient all risk and benefits of the procedure including the risks of bleeding which is increasing her due to the history of anticoagulation and antiplatelet therapy. Risk of infection of the wounds, risk of a [place] gastric or enterocutaneous fistula, risk of injury to the adjacent structures including the transverse colon, risk of leakage of the feeding contents into the peritoneum causing peritonitis, risks of bumper dislodgment, risk of necrotizing soft tissue infection, risks of buried bumper syndrome. Patient shows understanding wishes to proceed. She has also asked me to talk to her [id number] regarding the procedure. We will give the patient 48 hours without antiplatelet therapy to prevent bleeding complications and then we will proceed with placement of the gastrostomy tube. Coding Level of Care Code 05528 Diagnoses Status post aortic valve replacement with bioprosthetic valve Z95.3 Left acute arterial ischemic stroke, MCA (middle cerebral artery) I63.512
[2023-09-19] VITALS (12 sets, daily range): BP systolic 117–152; BP diastolic 62–97; PULSE 55–101; RESP 18–24; TEMP 36.7–36.8; O2SAT 92–98
[2023-09-19 05:52] LABS: Basophils % 0.3 %; Eosinophils # 0.1 10^3/uL (0.0-0.8); Eosinophils % 1.1 %; Hematocrit 35.2 % (36-47); Lymphocytes # 1.8 10^3/uL (0.8-4.8); Mean Corpuscular HGB Conc 33.5 g/dL (30-55); Mean Corpuscular Hemoglobin 29.9 pg (27-33); Mean Corpuscular Volume 89.3 fl (85-98); Mean Platelet Volume 11.5 fL (7.4-10.4); Monocytes # 1.2 10^3/uL (0.2-0.9); Monocytes % 10.3 %; Neutrophils # 8.65 10^3/uL (1.8-7.7); Neutrophils % 72.7 %; Nucleated Red Blood Cells % 0 %; Platelet Count 143 10^3/cmm (157-399); Red Blood Count 3.94 10^6/uL (3.85-5.65); Red Cell Distribution Width 13.3 % (12.1-15.1); White Blood Count 11.88 10^3/uL (3.29-11.43)
[2023-09-19] MEDS: piperacillin-tazobactam 3.375 GM in sodium chloride 0.9% (plus) 50 ML IV ×3 (06:03→23:10)
[2023-09-19] MEDS: metoprolol succinate ER (24 HR) 50 mg Tablet PO (06:04)
[2023-09-19] MEDS: aspirin 81 mg EC Tablet PO (06:04)
[2023-09-19] MEDS: amlodipine 10 mg Tablet PO (06:04)
[2023-09-19 08:55] LABS: Blood Urea Nitrogen 20 mg/dL (8-23); Calcium 8.2 mg/dL (8.5-10.5); Carbon Dioxide 21 mmol/L (22-29); Chloride 105 mmol/L (98-107); Glucose 98 mg/dL (65-115); Osmolality Calculated 293 mOsm/kg (285-295); Sodium 140 mmol/L (136-145)
[2023-09-19 09:00] LABS: Creatinine Clr Calc Pharmacy 40.5005
[2023-09-19 09:01] LABS: Anion Gap 18.1 (5-19); Potassium 4.1 mmol/L (3.5-5.1)
[2023-09-19] MEDS: acyclovir 400 mg Tablet 800 MG PO (10:25)
[2023-09-19] MEDS: ropinirole 0.25 mg Tablet 0.5 MG PO ×2 (10:25→17:00)
[2023-09-19] MEDS: tizanidine 4 mg Tablet PO ×2 (10:25→20:14)
[2023-09-19] MEDS: heparin 5,000 unit/mL INJ 1 mL 5000 UNIT SUBCUT ×2 (10:25→23:10)
[2023-09-19] MEDS: pantoprazole DR 40 mg Tablet PO (10:25)
--- NOTE | 2023-09-19 11:56 | P.PN_ITS ---
Subjective 2 Subjective: Patient complains of left hand cramp. Reports occasional cough. Denies shortness of breath or chest pains. Discussed plan of care. She reports general surgery wants to the feeding tube on Thursday. She denies other new complaints. Medications: Reviewed: Yes Vitals/I&O/Wt Last Vital Signs Temp 98.2 F 09/19/23 07:10 Pulse 84 09/19/23 08:29 Resp 18 09/19/23 08:29 BP 147/63 09/19/23 07:10 Pulse Ox 98 09/19/23 08:29 O2 Del Method Room Air 09/19/23 08:29 O2 Flow Rate 2 09/18/23 07:51 09/18/23 09/19/23 09/19/23 22:59 06:59 14:59 Intake Total 647.958 / 1645.000 50 / 1695.000 290 / 290 Balance 647.958 / 1645.000 50 / 1695.000 290 / 290 Weight last 48 hrs Weight 68.81 kg Weight 69.4 kg Weight 70.931 kg Weight 65.771 kg Physical Exam 2 Narrative: General: Patient is awake. Lying in bed. Head: EOM intact. Mucous membranes are dry. Neck: No JVD. Cardiovascular: RRR. No gallops. No murmurs. Lungs: Breath sounds are coarse, no use of accessory muscles, no crackles or wheezes. Skin: No jaundice. No rashes. Abdomen: Normal bowel sounds, abdomen soft and nontender. Genito Urinary: Genital exam not performed since complaints not related. Rectal: Rectal exam not performed since no symptoms indicated blood loss. Extremities: No cyanosis or clubbing. Musculoskeletal: Weakness in left-sided extremities. No swollen or erythematous joints. Neurological: No myoclonus. Speech is slightly dysarthric. Data 09/19/23 05:22 09/19/23 05:22 Micro: Microbiology 09/17/23 23:01 Blood Culture - Preliminary Blood NEGATIVE TO DATE 09/17/23 22:57 Blood Culture - Preliminary Blood NEGATIVE TO DATE A&P Assessment and plan (1) DNR (do not resuscitate): (2) Bipolar affective disorder: (3) HTN (hypertension): Qualifiers: Hypertension type: essential hypertension Qualified Code(s): I10 - Essential (primary) hypertension (4) Postoperative atrial fibrillation: (5) Dysphagia: (6) Acute kidney injury: (7) Transient cerebral ischemia: (8) Left acute arterial ischemic stroke, MCA (middle cerebral artery): (9) Restrictive lung disease: (10) At risk for aspiration: (11) Pneumonia: Qualifiers: Laterality: bilateral Lung location: lower lobe of lung Pneumonia type: due to unspecified organism Qualified Code(s): J18.9 - Pneumonia, unspecified organism (12) Acute hypoxemic respiratory failure: (13) Neurologic gait disorder: (14) Physical deconditioning: (15) Generalized weakness: (16) Multiple falls: Plan Transient ischemic attack Dysphagia/aspiration secondary to recent stroke complicated by aspiration pneumonia with acute hypoxic respiratory insufficiency Continue broad-spectrum antibiotics General surgery consulted, anticipating feeding tube placement Appreciate speech therapy recommendations Continue current diet Continue aspirin therapy Continue PT OT and ST Holding Plavix General surgery to place feeding tube, defer timing to surgeon Heparin for DVT prophylaxis DNR status Attestations 2 Medical Necessity Statement*: Patient requires ongoing hospitalization for IV fluids, electrolyte management, feeding tube placement, and initiation of tube feeds. Coding Level of Care Code Acute Code for Chg Fwd Diagnoses DNR (do not resuscitate) Z66 Bipolar affective disorder F31.9 Essential hypertension I10 Hypertension type: essential hypertension Postoperative atrial fibrillation I97.89; I48.91 Dysphagia R13.10 Acute kidney injury N17.9 Transient cerebral ischemia G45.9 Left acute arterial ischemic stroke, MCA (middle cerebral artery) I63.512 Restrictive lung disease J98.4 At risk for aspiration Z91.89 Pneumonia J18.9 Laterality: bilateral Lung location: lower lobe of lung Pneumonia type: due to unspecified organism Acute hypoxemic respiratory failure J96.01 Neurologic gait disorder R26.9 Physical deconditioning R53.81 Generalized weakness R53.1 Multiple falls R29.6
[2023-09-19] MEDS: acetaminophen 325 mg Tablet 650 MG PO ×2 (13:17→20:14)
[2023-09-19] MEDS: atorvastatin 40 mg Tablet 80 MG PO (17:00)
[2023-09-20] VITALS (27 sets, daily range): BP systolic 116–185; BP diastolic 56–78; PULSE 53–81; RESP 14–26; TEMP 36.4–37; O2SAT 90–98
[2023-09-20 04:18] LABS: Basophils # 0.1 10^3/uL (0.0-0.1); Eosinophils # 0.3 10^3/uL (0.0-0.8); Eosinophils % 3.8 %; Hematocrit 37.5 % (36-47); Lymphocytes # 2.3 10^3/uL (0.8-4.8); Lymphocytes % 32.3 %; Mean Corpuscular HGB Conc 28.5 g/dL (30-55); Mean Corpuscular Hemoglobin 29.5 pg (27-33); Mean Corpuscular Volume 103.3 fl (85-98); Mean Platelet Volume 10.8 fL (7.4-10.4); Monocytes # 0.9 10^3/uL (0.2-0.9); Monocytes % 12.8 %; Neutrophils # 3.49 10^3/uL (1.8-7.7); Neutrophils % 49.8 %; Nucleated Red Blood Cells % 0 %; Platelet Count 200 10^3/cmm (157-399); Red Blood Count 3.63 10^6/uL (3.85-5.65); Red Cell Distribution Width 13.2 % (12.1-15.1); White Blood Count 7.02 10^3/uL (3.29-11.43)
[2023-09-20 04:40] LABS: Albumin Level 3.1 g/dL (3.5-5.2); Anion Gap 13.2 (5-19); Blood Urea Nitrogen 14 mg/dL (8-23); Calcium 7.7 mg/dL (8.5-10.5); Carbon Dioxide 25 mmol/L (22-29); Chloride 108 mmol/L (98-107); Creatinine Clr Calc Pharmacy 37.1255; Glucose 91 mg/dL (65-115); Magnesium 2.1 mg/dL (1.7-2.3); Potassium 4.2 mmol/L (3.5-5.1); Sodium 142 mmol/L (136-145)
[2023-09-20] MEDS: aspirin 81 mg EC Tablet PO (06:18)
[2023-09-20] MEDS: metoprolol succinate ER (24 HR) 50 mg Tablet PO (06:18)
[2023-09-20] MEDS: amlodipine 10 mg Tablet PO (06:18)
[2023-09-20] MEDS: piperacillin-tazobactam 3.375 GM in sodium chloride 0.9% (plus) 50 ML IV ×3 (06:18→23:21)
--- NOTE | 2023-09-20 08:53 | P.PN_ITS ---
Subjective 2 Subjective: 78-year-old female with history of strok e who is known to my service for evaluation for PEG tube placement. Patient has been stable plan is for PEG tube placement tomorrow. Vitals/I&O/Wt Last Vital Signs Temp 98.1 F 09/20/23 07:00 Pulse 68 09/20/23 07:00 Resp 20 H 09/20/23 07:00 BP 185/78 09/20/23 07:00 Pulse Ox 93 09/20/23 07:00 O2 Del Method Room Air 09/20/23 07:00 O2 Flow Rate 2 09/18/23 07:51 09/19/23 09/20/23 09/20/23 22:59 06:59 14:59 Intake Total 510 / 1160 50 / 1210 Output Total 450 / 750 Balance 60 / 410 50 / 460 Weight last 48 hrs Weight 147 lb Weight 151 lb 11.2 oz Physical Exam 2 GI: OTHER: Abdomen is soft, nontender, nondistended. Data 09/20/23 03:25 09/20/23 03:25 A&P Assessment and plan (1) Left acute arterial ischemic stroke, MCA (middle cerebral artery): Plan Patient has been stable, no significant changes in clinical status. Plan is to proceed with PEG tube placement tomorrow morning. Per patient request I have discussed with her sister Clint who also agrees for the procedure. -N.p.o. after midnight -For PEG tube placement tomorrow Attestations 2 Medical Necessity Statement*: Per medical team Coding Level of Care Code 50845 Diagnoses Left acute arterial ischemic stroke, MCA (middle cerebral artery) I63.512
--- NOTE | 2023-09-20 09:14 | P.PN_ITS ---
Subjective 2 Subjective: Patient reports she is hungry. She remains on the clear liquid diet. Remains on room air. Endorses occasional cough. We discussed feeding tube placement tentatively for tomorrow. She is in agreement. Denies nausea, vomiting, or chest pains. Medications: Reviewed: Yes Vitals/I&O/Wt Last Vital Signs Temp 98.1 F 09/20/23 07:00 Pulse 68 09/20/23 07:00 Resp 20 H 09/20/23 07:00 BP 185/78 09/20/23 07:00 Pulse Ox 93 09/20/23 07:00 O2 Del Method Room Air 09/20/23 07:00 O2 Flow Rate 2 09/18/23 07:51 09/19/23 09/20/23 09/20/23 22:59 06:59 14:59 Intake Total 510 / 1160 50 / 1210 118 / 118 Output Total 450 / 750 Balance 60 / 410 50 / 460 118 / 118 Weight last 48 hrs Weight 66.678 kg Weight 68.81 kg Physical Exam 2 Narrative: General: Patient is awake. Alert. Lying in bed. Head: EOM intact. Mucous membranes remain dry. Neck: No JVD. Cardiovascular: RRR. No gallops. No murmurs. Lungs: Breath sounds are coarse, no use of accessory muscles, no crackles or wheezes. On room air. Skin: No jaundice. No rashes. Abdomen: Normal bowel sounds, abdomen soft and nontender. Genito Urinary: Genital exam not performed since complaints not related. Rectal: Rectal exam not performed since no symptoms indicated blood loss. Extremities: No cyanosis or clubbing. Musculoskeletal: Weakness in left-sided extremities. No swollen or erythematous joints. Neurological: No myoclonus. Speech is slightly dysarthric. Data 09/20/23 03:25 09/20/23 03:25 A&P Assessment and plan (1) DNR (do not resuscitate): (2) Bipolar affective disorder: (3) HTN (hypertension): Qualifiers: Hypertension type: essential hypertension Qualified Code(s): I10 - Essential (primary) hypertension (4) Postoperative atrial fibrillation: (5) Dysphagia: (6) Acute kidney injury: (7) Transient cerebral ischemia: (8) Left acute arterial ischemic stroke, MCA (middle cerebral artery): (9) Restrictive lung disease: (10) At risk for aspiration: (11) Pneumonia: Qualifiers: Laterality: bilateral Lung location: lower lobe of lung Pneumonia type: due to unspecified organism Qualified Code(s): J18.9 - Pneumonia, unspecified organism (12) Acute hypoxemic respiratory failure: (13) Neurologic gait disorder: (14) Physical deconditioning: (15) Generalized weakness: (16) Multiple falls: Plan Transient ischemic attack Dysphagia/aspiration secondary to recent stroke complicated by aspiration pneumonia with acute hypoxic respiratory insufficiency Continue broad-spectrum antibiotics General surgery consulted, anticipating feeding tube placement Appreciate speech therapy recommendations Continue current diet Continue aspirin Continue PT OT and ST Holding Plavix General surgery to place feeding tube, planning for tomorrow N.p.o. after midnight Heparin for DVT prophylaxis DNR status Attestations 2 Medical Necessity Statement*: Patient requires ongoing hospitalization for IV antibiotics, IV fluids, feeding tube placement and initiation of enteral feeds after placement. Coding Level of Care Code Acute Code for Chg Fwd Diagnoses DNR (do not resuscitate) Z66 Bipolar affective disorder F31.9 Essential hypertension I10 Hypertension type: essential hypertension Postoperative atrial fibrillation I97.89; I48.91 Dysphagia R13.10 Acute kidney injury N17.9 Transient cerebral ischemia G45.9 Left acute arterial ischemic stroke, MCA (middle cerebral artery) I63.512 Restrictive lung disease J98.4 At risk for aspiration Z91.89 Pneumonia J18.9 Laterality: bilateral Lung location: lower lobe of lung Pneumonia type: due to unspecified organism Acute hypoxemic respiratory failure J96.01 Neurologic gait disorder R26.9 Physical deconditioning R53.81 Generalized weakness R53.1 Multiple falls R29.6
[2023-09-20] MEDS: acyclovir 400 mg Tablet 800 MG PO (11:07)
[2023-09-20] MEDS: ropinirole 0.25 mg Tablet 0.5 MG PO ×2 (11:07→19:08)
[2023-09-20] MEDS: sennosides-docusate Tablet 2 TAB PO (11:07)
[2023-09-20] MEDS: tizanidine 4 mg Tablet PO (11:08)
[2023-09-20] MEDS: pantoprazole DR 40 mg Tablet PO (11:08)
[2023-09-20] MEDS: heparin 5,000 unit/mL INJ 1 mL 5000 UNIT SUBCUT ×2 (11:08→23:21)
[2023-09-20] MEDS: sodium chloride 0.9% 1,000 ML 30 ML IV (11:12)
[2023-09-20 17:03] LABS: C.Diff PCR (Lab) POSITIVE (Negative)
[2023-09-20 17:27] LABS: Clostridioides Difficile Toxin NEGATIVE (Negative)
[2023-09-20] MEDS: atorvastatin 40 mg Tablet 80 MG PO (19:08)
[2023-09-20] MEDS: vancomycin 125 mg Capsule PO ×2 (19:09→23:21)
[2023-09-21] VITALS (21 sets, daily range): BP systolic 115–199; BP diastolic 70–98; PULSE 75–94; RESP 21–29; TEMP 36.6–37.1; O2SAT 91–100; BMI 26.0
[2023-09-21 04:05] LABS: Basophils # 0.1 10^3/uL (0.0-0.1); Basophils % 0.7 %; Eosinophils # 0.3 10^3/uL (0.0-0.8); Eosinophils % 3.8 %; Hematocrit 39.7 % (36-47); Lymphocytes # 1.8 10^3/uL (0.8-4.8); Lymphocytes % 19.9 %; Mean Corpuscular HGB Conc 32.7 g/dL (30-55); Mean Corpuscular Hemoglobin 30.1 pg (27-33); Mean Corpuscular Volume 91.9 fl (85-98); Mean Platelet Volume 10.7 fL (7.4-10.4); Monocytes # 1.2 10^3/uL (0.2-0.9); Monocytes % 12.9 %; Neutrophils # 5.59 10^3/uL (1.8-7.7); Neutrophils % 62.3 %; Nucleated Red Blood Cells % 0 %; Platelet Count 206 10^3/cmm (157-399); Red Blood Count 4.32 10^6/uL (3.85-5.65); Red Cell Distribution Width 13.2 % (12.1-15.1); White Blood Count 8.98 10^3/uL (3.29-11.43)
[2023-09-21 04:20] LABS: Albumin Level 3.2 g/dL (3.5-5.2); Anion Gap 13.7 (5-19); Blood Urea Nitrogen 9 mg/dL (8-23); Calcium 8.1 mg/dL (8.5-10.5); Carbon Dioxide 26 mmol/L (22-29); Chloride 108 mmol/L (98-107); Creatinine Clr Calc Pharmacy 39.9148; Glucose 88 mg/dL (65-115); Magnesium 2.1 mg/dL (1.7-2.3); Phosphorus 3.2 mg/dL (2.5-4.5); Potassium 3.7 mmol/L (3.5-5.1); Sodium 144 mmol/L (136-145)
--- NOTE | 2023-09-21 06:19 | P.HPUD_ITS ---
Surgery/Procedure H&P Update DATE OF PROCEDURE: September 21, 2023 DATE H&P PERFORMED: 09/18/23 H&P UPDATE INFORMATION: I have reviewed H&P completed within last 30 days, I have examined patient prior to procedure, No changes to prior documentation and H&P is in [facility] EMR on date indicated
--- NOTE | 2023-09-21 07:38 | PC.NURSE ---
to gi lab via stretcher at this time
--- NOTE | 2023-09-21 07:50 | ANES.PREANE2 ---
Pre-Anesthetic Assessment Height/Weight: Height 1.6 m Weight 66.678 kg Temp Pulse Resp BP Pulse Ox O2 Del Method O2 Flow Rate 98.6 F 94 27 H 162/87 94 Room Air 6 09/21/23 16:00 09/21/23 16:00 09/21/23 16:00 09/21/23 16:00 09/21/23 16:00 09/21/23 16:00 09/21/23 08:31 Operation Date: 09/21/23 08:00 Proposed Procedures p EGD(Not Applicable) - Edmond North MD s PEG Tube Insertion(Not Applicable) - Edmond North MD Familial anesthetic complications: noen Was Beta Ivon taken within 24 hours: Yes Was Clonidine taken within 24 hours: N/A Last intake: Intake Last Liquid Date 09/20/23 Last Liquid Time 23:55 Last Solid Date 09/20/23 Last Solid Time 23:55 Social No alcohol and No tobacco Exam alert, oriented x 3, clear to auscultation bilaterally and regular rate & rhythm Airway Mallampati: Class III Dentition: false Pulmonary Sleep Apnea resp failure, pulm asp CV/HEM Hypertension AVR Neuropsych Cerebrovascular Accident Anesthetic Plan ASA status: 3 Anesthesia: MAC Risk of > 500 ml blood loss (7ml/kg in children): No Medications/Allergies Home Medications Medication Instructions Recorded Confirmed Last Taken Type acyclovir 800 mg tablet 800 mg PO DAILY 08/27/23 09/18/23 09/16/23 History aspirin 81 mg tablet,delayed 81 mg PO QAM 08/27/23 09/18/23 09/16/23 History release diphenhydramine HCl 25 mg tablet 25 mg PO BEDTIME 08/27/23 09/18/23 09/15/23 History hydrocodone 5 mg-acetaminophen 325 1 tab PO Q6H PRN Pain 08/27/23 09/18/23 09/16/23 History mg tablet hydroxyzine HCl 25 mg tablet 25 mg PO BID PRN Itching 08/27/23 09/18/23 Unknown History omeprazole 40 mg capsule,delayed 40 mg PO QAM 08/27/23 09/18/23 09/16/23 History release peg 400-propylene glycol (PF) 0.4 1 drp ophthalmic (eye) QID PRN Dry 08/27/23 09/18/23 09/03/23 History %-0.3 % eye drops in a dropperette Eyes (Systane (PF)) tizanidine 4 mg tablet 4 mg PO TID PRN muscle spasms 08/27/23 09/18/23 09/16/23 History acetaminophen 325 mg tablet 650 mg PO Q6H PRN Pain 09/16/23 09/18/23 Unknown History albuterol sulfate 2.5 mg/3 mL 2.5 mg inhalation Q6H PRN 09/16/23 09/18/23 Unknown History (0.083 %) solution for nebulization Shortness Of Breath amlodipine 10 mg tablet 10 mg PO QAM 09/16/23 09/18/23 Unknown History atorvastatin 80 mg tablet 80 mg PO QPM 09/16/23 09/18/23 09/16/23 History azelastine 137 mcg (0.1 %) nasal 1 spray intranasal BID PRN RHINITIS 09/16/23 09/18/23 Unknown History spray aerosol clopidogrel 75 mg tablet 75 mg PO QAM 09/16/23 09/18/23 09/16/23 History fluticasone propionate 50 2 spray intranasal Q12H PRN 09/16/23 09/18/23 Unknown History mcg/actuation nasal RHINITIS spray,suspension lisinopril 20 mg tablet 20 mg PO QAM 09/16/23 09/18/23 09/16/23 History meclizine 25 mg tablet 25 mg PO Q8H PRN Dizziness 09/16/23 09/18/23 Unknown History metoprolol succinate 50 mg 50 mg PO QAM 09/16/23 09/18/23 09/16/23 History tablet,extended release 24 hr oxybutynin chloride 5 mg tablet 5 mg PO QAM 09/16/23 09/18/23 09/16/23 History ropinirole 0.5 mg tablet 0.5 mg PO BID 09/16/23 09/18/23 09/16/23 History Allergies Allergy/AdvReac Type Severity Reaction Status Date / Time No Known Drug Allergies Allergy Unknown Verified 09/16/23 14:19 Current Medications Generic Name Dose Route Start Last Admin Trade Name Freq PRN Reason Stop Dose Admin Acetaminophen 650 mg 09/17/23 23:30 09/19/23 20:14 Acetaminophen 325 Mg Tablet PO 650 mg Q6H PRN Administration Mild/Mod Pain Or Temp >/= 101 Acyclovir 800 mg 09/19/23 09:00 09/21/23 09:52 Acyclovir 400 Mg Tablet PO 800 mg DAILY MACHELLE Administration Amlodipine Besylate 10 mg 09/18/23 10:10 09/21/23 09:54 Amlodipine 10 Mg Tablet PO 10 mg QAM MACHELLE Administration Aspirin 81 mg 09/18/23 06:00 09/21/23 09:53 Aspirin 81 Mg Ec Tablet PO 81 mg QAM MACHELLE Administration Atorvastatin Calcium 80 mg 09/18/23 18:00 09/21/23 17:30 Atorvastatin 40 Mg Tablet PO 80 mg QPM MACHELLE Administration Clopidogrel Bisulfate 75 mg 09/18/23 06:00 09/18/23 05:05 Clopidogrel 75 Mg Tablet PO Not Given QAM [facility] Heparin Sodium (Porcine) 5,000 unit 09/17/23 23:30 09/20/23 23:21 Heparin 5,000 Unit/Ml Inj 1 Ml SUBCUT 5,000 unit Q12H MACHELLE Administration Piperacillin Sod/Tazobactam 50 mls @ 12.5 mls/hr 09/18/23 07:00 09/21/23 18:19 Sod 3.375 gm/ Sodium Chloride IV Infused Q8H MACHELLE Infusion Sodium Chloride 1,000 mls @ 30 mls/hr 09/21/23 07:45 09/21/23 09:22 Sodium Chloride 0.9% IV Not Given .Q24H [facility] Lisinopril 20 mg 09/18/23 10:10 09/21/23 09:52 Lisinopril 20 Mg Tablet PO 20 mg QAM [facility] Administration Metoprolol Succinate 50 mg 09/19/23 06:00 09/21/23 09:51 Metoprolol Succinate Er (24 Hr) 50 Mg Tablet PO 50 mg QAM [facility] Administration Austedo Xr 24 Mg 1 each 09/21/23 14:15 09/21/23 14:19 PO 1 each DAILY [facility] Administration Pantoprazole Sodium 40 mg 09/21/23 09:00 09/21/23 09:09 Pantoprazole 40 Mg Sdv IVP 40 mg DAILY MACHELLE Administration Ropinirole HCl 0.5 mg 09/18/23 18:00 09/21/23 17:30 Ropinirole 0.25 Mg Tablet PO 0.5 mg BID MACHELLE Administration Senna/Docusate Sodium 2 tab 09/18/23 09:00 09/21/23 16:12 Sennosides-Docusate Tablet PO Not Given BID MACHELLE Tizanidine HCl 4 mg 09/18/23 14:48 09/20/23 11:08 Tizanidine 4 Mg Tablet PO 4 mg TID PRN Administration muscle spasms Vancomycin HCl 125 mg 09/20/23 17:15 09/21/23 17:30 Vancomycin 125 Mg Capsule PO 125 mg Q6H MACHELLE Administration PFSH Anesthesia Medical History 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 Orthostatic hypotension Tardive dyskinesia DNR (do not resuscitate) Hypercholesterolemia Chronic obstructive pulmonary disease, unspecified Labyrinthitis Backache Bipolar affective disorder Arthropathy, unspecified HTN (hypertension) RLS (restless legs syndrome) Sleep apnea Peripheral vertigo Irritable bowel syndrome Aortic stenosis, severe Surgical History History of nasal surgery Status post aortic valve replacement with bioprosthetic valve History of abdominal hysterectomy H/O foot surgery H/O eye surgery H/O oral surgery Hx of cholecystectomy History of appendectomy Family History Other Hypertension Social History Smoking and tobacco/nicotine status: former use of tobacco/nicotine Quit status (tobacco/nicotine): has quit using Year quit tobacco: 1979 - ciggs x 6 Years Second hand smoke exposure: No Alcohol intake: never Substance/Drug Use: never Caregiver/support person: Yes Lives independently: Yes Household members: none Housing: House Marital status: / Current occupational status: retired and disabled Pets and animals: Yes Pets & animals: dog(s) Do you think of yourself as: Straight/Heterosexual Current gender identity: Female Data Anesthesia 09/21/23 02:37 09/21/23 02:37 Short CBC 09/20/23 09/21/23 Range/Units 03:25 02:37 WBC 7.02 8.98 (3.29-11.43) 10^3/uL Hgb 10.70 L 13.00 (11.27-16.99) g/dL Hct 37.5 39.7 (36-47) % MCV 103.3 H D 91.9 D (85-98) fl Plt Count 200 D 206 (157-399) 10^3/cmm Neut % (Auto) 49.8 62.3 % Neut # (Auto) 3.49 5.59 (1.8-7.7) 10^3/uL BMP 09/20/23 09/21/23 03:25 02:37 Sodium 142 144 Potassium 4.2 3.7 Chloride 108 H 108 H Carbon Dioxide 25 26 BUN 14 9 Creatinine 1.2 H 1.1 H Glucose 91 88 Calcium 7.7 L 8.1 L Liver Function 09/20/23 09/21/23 Range/Units 03:25 02:37 Albumin 3.1 L 3.2 L (3.5-5.2) g/dL Cardiac Studies: Echocardiogram 07/14/22 Echocardiogram Limited Views 10/20/19 Echocardiogram Ultrasound 02/27/20 Transesophageal Echocardiogram 10/25/19
--- NOTE | 2023-09-21 08:10 | PC.NURSE ---
10ml of lidocaine used by Dr North
--- NOTE | 2023-09-21 08:30 | P.MISC_ITS ---
Miscellaneous Note Purpose of Documentation: Update on patient care Note: PEG tube was placed this morning, no immediate complications were noted. PEG tube cannot be used for the next 24 hours. After 24 hours of placement trickle feeds can be initiated and advance as tolerated per hospitalist guidance. Patient should remain off anticoagulation for the next 48 to 72 hours to prevent bleeding complications. Patient is very high risk for bleeding due to history of chronic anticoagulation. -Patient to remain off anticoagulation f or the next 72 hours -Please do not use the tube for the next 24 hours
--- NOTE | 2023-09-21 08:55 | ANE.PACU2 ---
Inpatient post-anesthesia follow up: Airway intact: Yes Vital signs: Temperature 98.6 F Pulse Rate 94 Respiratory Rate 27 Blood Pressure 162/87 Pulse Oximetry 94 Oxygen Delivery Me thod Room Air Oxygen Flow Rate 6 Fraction of Inspir ed Oxygen Hydration adequate: Yes Nausea and vomiting: No Pain level: 1 Mental status: Baseline
[2023-09-21] MEDS: pantoprazole 40 mg SDV IVP (09:09)
--- NOTE | 2023-09-21 09:16 | PC.NURSE ---
abdominal binder placed prior to transfer to room 106
[2023-09-21] MEDS: metoprolol succinate ER (24 HR) 50 mg Tablet PO (09:51)
[2023-09-21] MEDS: lisinopril 20 mg Tablet PO (09:52)
[2023-09-21] MEDS: ropinirole 0.25 mg Tablet 0.5 MG PO ×2 (09:52→17:30)
[2023-09-21] MEDS: acyclovir 400 mg Tablet 800 MG PO (09:52)
[2023-09-21] MEDS: aspirin 81 mg EC Tablet PO (09:53)
[2023-09-21] MEDS: amlodipine 10 mg Tablet PO (09:54)
[2023-09-21] MEDS: vancomycin 125 mg Capsule PO ×3 (09:57→23:29)
--- NOTE | 2023-09-21 11:56 | PC.NURSE ---
pt returned from gi lab at 1045 via stretcher.report received.pt is alert and awake.denies pain.sr on monitor.peg tube drsg is dry and intact.prudencio reyes is on.took a.m. meds in pudding..not crushed...without difficulty.
--- NOTE | 2023-09-21 12:00 | PC.SOCIAL ---
IMM Update Pg. 2 of IMM updated and reviewed with patient who verbalized understanding. Copy provided.
--- NOTE | 2023-09-21 12:10 | P.PN_ITS ---
Subjective 2 Subjective: Patient seen postprocedure. She reports some pain at the feeding tube site. She denies abdominal pain prior to the procedure. Patient was noted developed several episodes of diarrhea late yesterday. She has been on antibiotics for her aspiration. Her initial C. difficile PCR was positive yesterday for which she was started on vancomycin. She denies fevers or chills. Denies other new complaints. Medications: Reviewed: Yes Vitals/I&O/Wt Last Vital Signs Temp 98 F 09/21/23 08:31 Pulse 85 09/21/23 11:09 Resp 29 H 09/21/23 11:09 BP 164/98 09/21/23 11:09 Pulse Ox 95 09/21/23 11:09 O2 Del Method Room Air 09/21/23 11:09 O2 Flow Rate 6 09/21/23 08:31 09/20/23 09/21/23 09/21/23 22:59 06:59 14:59 Intake Total 410 / 1298 50 / 1348 600 / 600 Output Total 350 / 700 Balance 60 / 598 50 / 648 600 / 600 Weight last 48 hrs Weight 66.678 kg Weight 66.678 kg Physical Exam 2 Narrative: General: Patient is awake. Appears fatigued but pleasant. Head: EOM intact. Neck: No JVD. Cardiovascular: RRR. No gallops. No murmurs. Lungs: Breath sounds are coarse, no use of accessory muscles, no crackles or wheezes. On room air. Skin: No jaundice. No rashes. Abdomen: Normal bowel sounds, abdomen soft. Abdominal binder covers feeding tube site. Extremities: No cyanosis or clubbing. Musculoskeletal: Weakness in left-sided extremities. No swollen or erythematous joints. Neurological: No myoclonus. Speech is dysarthric, similar to prior exam. Data 09/21/23 02:37 09/21/23 02:37 A&P Assessment and plan (1) DNR (do not resuscitate): (2) Bipolar affective disorder: (3) HTN (hypertension): Qualifiers: Hypertension type: essential hypertension Qualified Code(s): I10 - Essential (primary) hypertension (4) Postoperative atrial fibrillation: (5) Dysphagia: (6) Acute kidney injury: (7) Transient cerebral ischemia: (8) Left acute arterial ischemic stroke, MCA (middle cerebral artery): (9) Restrictive lung disease: (10) At risk for aspiration: (11) Pneumonia: Qualifiers: Laterality: bilateral Lung location: lower lobe of lung Pneumonia type: due to unspecified organism Qualified Code(s): J18.9 - Pneumonia, unspecified organism (12) Acute hypoxemic respiratory failure: (13) Neurologic gait disorder: (14) Physical deconditioning: (15) Generalized weakness: (16) Multiple falls: Plan Transient ischemic attack Dysphagia/aspiration secondary to recent stroke complicated by aspiration pneumonia with acute hypoxic respiratory insufficiency-now on room air Continue Zosyn Status post feeding tube placement on 09/20 General surgery recommending waiting for 24 hours prior to using feeding tube Continue holding antiplatelet/anticoagulant for 72 hours after feeding tube placement per general surgery recommendations Appreciate speech therapy recommendations Continue current diet Continue PT OT and ST Initial C. difficile PCR positive, confirmatory toxin testing was negative; given development of diarrhea and antibiotic exposure, will continue with vancomycin for now Attestations 2 Medical Necessity Statement*: Patient requires ongoing hospitalized care for postprocedure care, anticipate initiation of enteral feeds via feeding tube on Thursday, serial labs, and supportive care. Coding Level of Care Code Acute Code for Chg Fwd Diagnoses DNR (do not resuscitate) Z66 Bipolar affective disorder F31.9 Essential hypertension I10 Hypertension type: essential hypertension Postoperative atrial fibrillation I97.89; I48.91 Dysphagia R13.10 Acute kidney injury N17.9 Transient cerebral ischemia G45.9 Left acute arterial ischemic stroke, MCA (middle cerebral artery) I63.512 Restrictive lung disease J98.4 At risk for aspiration Z91.89 Pneumonia J18.9 Laterality: bilateral Lung location: lower lobe of lung Pneumonia type: due to unspecified organism Acute hypoxemic respiratory failure J96.01 Neurologic gait disorder R26.9 Physical deconditioning R53.81 Generalized weakness R53.1 Multiple falls R29.6
[2023-09-21] MEDS: piperacillin-tazobactam 3.375 GM in sodium chloride 0.9% (plus) 50 ML IV ×2 (14:19→23:26)
[2023-09-21] MEDS: AUSTEDO 24 MG 1 EACH PO (14:19)
[2023-09-21] MEDS: atorvastatin 40 mg Tablet 80 MG PO (17:30)
[2023-09-22] VITALS (43 sets, daily range): BP systolic 144–169; BP diastolic 67–79; PULSE 68–86; RESP 15–27; TEMP 36.5–36.9; O2SAT 88–98
[2023-09-22 03:28] LABS: Basophils # 0.1 10^3/uL (0.0-0.1); Basophils % 0.5 %; Eosinophils # 0.2 10^3/uL (0.0-0.8); Lymphocytes # 1.7 10^3/uL (0.8-4.8); Lymphocytes % 16.2 %; Mean Corpuscular HGB Conc 32.7 g/dL (30-55); Mean Corpuscular Hemoglobin 29.8 pg (27-33); Mean Corpuscular Volume 91.1 fl (85-98); Mean Platelet Volume 10.1 fL (7.4-10.4); Monocytes # 1.1 10^3/uL (0.2-0.9); Monocytes % 10.7 %; Neutrophils # 7.45 10^3/uL (1.8-7.7); Neutrophils % 70.2 %; Nucleated Red Blood Cells % 0 %; Platelet Count 200 10^3/cmm (157-399); Red Cell Distribution Width 13.2 % (12.1-15.1); White Blood Count 10.61 10^3/uL (3.29-11.43)
[2023-09-22 03:50] LABS: Alanine Aminotransferase 14 U/L (0-33); Albumin Level 3.2 g/dL (3.5-5.2); Alkaline Phosphatase 98 U/L (35-105); Anion Gap 12.9 (5-19); Aspartate Amino Transferase 17 U/L (0-32); Blood Urea Nitrogen 6 mg/dL (8-23); Calcium 8.1 mg/dL (8.5-10.5); Carbon Dioxide 27 mmol/L (22-29); Chloride 104 mmol/L (98-107); Creatinine Clr Calc Pharmacy 48.7847; Globulin 3.1 g/dL (1.3-4.6); Glucose 109 mg/dL (65-115); Magnesium 2.1 mg/dL (1.7-2.3); Osmolality Calculated 288 mOsm/kg (285-295); Phosphorus 3.2 mg/dL (2.5-4.5); Potassium 3.9 mmol/L (3.5-5.1); Sodium 140 mmol/L (136-145); Total Bilirubin 0.4 mg/dL (0.15-1.2); Total Protein 6.3 g/dL (6.6-8.7)
[2023-09-22] MEDS: amlodipine 10 mg Tablet PO (05:46)
[2023-09-22] MEDS: lisinopril 20 mg Tablet PO (05:46)
[2023-09-22] MEDS: aspirin 81 mg EC Tablet PO (05:46)
[2023-09-22] MEDS: vancomycin 125 mg Capsule PO ×4 (05:46→23:28)
[2023-09-22] MEDS: metoprolol succinate ER (24 HR) 50 mg Tablet PO (05:46)
--- NOTE | 2023-09-22 07:31 | P.PN_ITS ---
Subjective 2 Subjective: Patient is a 78-year-old female with history of a stroke who is postoperative day 1 status post PEG tube placement. Patient doing well overnight, only complaint is pain from the binder in the armpits but tolerating diet no pain in the abdomen. Vitals/I&O/Wt Last Vital Signs Temp 97.9 F 09/22/23 04:00 Pulse 79 09/22/23 06:00 Resp 18 09/22/23 04:00 BP 169/74 09/22/23 04:00 Pulse Ox 92 09/22/23 04:00 O2 Del Method Room Air 09/22/23 04:00 O2 Flow Rate 6 09/21/23 08:31 09/21/23 09/22/23 09/22/23 22:59 06:59 14:59 Intake Total 450 / 1290 150 / 1440 Balance 450 / 1290 150 / 1440 Weight last 48 hrs Weight 150 lb Weight 147 lb Physical Exam 2 GI: OTHER: Abdomen is soft, nontender, nondistended, PEG tube site is clean, no evidence of active bleeding. Data 09/22/23 02:59 09/22/23 02:59 A&P Assessment and plan (1) Left acute arterial ischemic stroke, MCA (middle cerebral artery): Plan Good progression after PEG tube placement. Patient denies any significant abdominal pain. Vital signs have remained stable. Hemoglobin is also stable from yesterday. My recommendation though will be still to hold anticoagulation until as patient is very high risk for bleeding complications due to active anticoagulation. From the PEG tube standpoint, this can start to be used this afternoon, trickle feeds can be started and then patient can be advanced to goal per hospitalist and nutritional team recommendations. She can follow-up in my clinic in 2 weeks to ensure adequate healing. -PEG tube looks good and can be used for feeding starting this afternoon -Please call anticoagulation was previously indicated until as patient is very high risk for bleeding complications. -Follow-up in my clinic in 2 weeks Attestations 2 Medical Necessity Statement*: Per medical team Coding Level of Care Code Acute Code for Chg Fwd Diagnoses Left acute arterial ischemic stroke, MCA (middle cerebral artery) I63.512
--- NOTE | 2023-09-22 09:26 | PC.NUTR ---
Initiate trickle feeds via PEG following RD recs below -Jevity 1.5 @ 15 ml/hr x24hrs When medically appropriate, advance TF regimen to goal as outlined below: -Cont: Jevity 1.5 @ 40 ml/hr x24hrs -bolus: Jevity 1.5 @ 1 can(237ml) @B, 2 cans(474ml) @L, 1 can(237ml) @D FWF: 150ml q6 See most recent RD note for details
[2023-09-22] MEDS: acyclovir 400 mg Tablet 800 MG PO (10:32)
[2023-09-22] MEDS: pantoprazole 40 mg SDV IVP (10:32)
[2023-09-22] MEDS: ropinirole 0.25 mg Tablet 0.5 MG PO ×2 (10:32→17:57)
[2023-09-22] MEDS: AUSTEDO 24 MG 1 EACH PO (10:33)
[2023-09-22] MEDS: piperacillin-tazobactam 3.375 GM in sodium chloride 0.9% (plus) 50 ML IV ×3 (10:33→23:28)
--- NOTE | 2023-09-22 11:51 | P.PN_ITS ---
Subjective 2 Subjective: Awaiting authorization Starting trickle feed today Requested dietary consultation Events Patient is doing well No active complaints Tolerating clear liquids Vitals/I&O/Wt Last Vital Signs Temp 98.4 F 09/22/23 07:36 Pulse 71 09/22/23 09:24 Resp 22 H 09/22/23 07:36 BP 150/67 09/22/23 07:36 Pulse Ox 96 09/22/23 07:36 O2 Del Method Room Air 09/22/23 07:36 O2 Flow Rate 6 09/21/23 08:31 09/21/23 09/22/23 09/22/23 22:59 06:59 14:59 Intake Total 450 / 1290 150 / 1440 360 / 360 Balance 450 / 1290 150 / 1440 360 / 360 Weight last 48 hrs Weight 68.039 kg Weight 66.678 kg Physical Exam 2 Narrative: Awake and alert Pleasant cooperative Dehydrated Currently on room air Hypertensive Pleasant cooperative awake able to follow commands Data 09/22/23 02:59 09/22/23 02:59 A&P Assessment and plan (1) DNR (do not resuscitate): (2) S/P AVR (aortic valve replacement): (3) HTN (hypertension): Qualifiers: Hypertension type: essential hypertension Qualified Code(s): I10 - Essential (primary) hypertension (4) Dysphagia: (5) Constipation: (6) Pneumonia: Qualifiers: Laterality: bilateral Lung location: lower lobe of lung Pneumonia type: due to unspecified organism Qualified Code(s): J18.9 - Pneumonia, unspecified organism (7) Aspiration into airway: (8) Acute hypoxemic respiratory failure: Plan Requested dietary consultation for trickle feed today via PEG tube Patient awaiting authorization to be discharged DNR/DNI Hemodynamic stable Continue p.o. vancomycin along aspiration pneumonia antibiotic Will optimize antihypertensive regimen as needed Attestations 2 Medical Necessity Statement*: Awaiting discharge Diagnoses DNR (do not resuscitate) Z66 S/P AVR (aortic valve replacement) Z95.2 Essential hypertension I10 Hypertension type: essential hypertension Dysphagia R13.10 Constipation K59.00 Pneumonia J18.9 Laterality: bilateral Lung location: lower lobe of lung Pneumonia type: due to unspecified organism Aspiration into airway T17.908A Acute hypoxemic respiratory failure J96.01
[2023-09-22] MEDS: atorvastatin 40 mg Tablet 80 MG PO (17:57)
[2023-09-23] VITALS (9 sets, daily range): BP systolic 95–184; BP diastolic 58–88; PULSE 64–76; RESP 16–20; TEMP 36.4–37.2; O2SAT 92–97
[2023-09-23 04:43] LABS: Basophils % 0.4 %; Eosinophils # 0.4 10^3/uL (0.0-0.8); Eosinophils % 3.8 %; Hematocrit 38.3 % (36-47); Lymphocytes # 1.6 10^3/uL (0.8-4.8); Lymphocytes % 14.9 %; Mean Corpuscular HGB Conc 32.6 g/dL (30-55); Mean Corpuscular Hemoglobin 29.5 pg (27-33); Mean Corpuscular Volume 90.3 fl (85-98); Mean Platelet Volume 10.1 fL (7.4-10.4); Monocytes % 9.2 %; Neutrophils # 7.49 10^3/uL (1.8-7.7); Neutrophils % 71.3 %; Nucleated Red Blood Cells % 0 %; Platelet Count 187 10^3/cmm (157-399); Red Blood Count 4.24 10^6/uL (3.85-5.65); Red Cell Distribution Width 13.3 % (12.1-15.1)
[2023-09-23] MEDS: vancomycin 125 mg Capsule PO (06:20)
[2023-09-23] MEDS: aspirin 81 mg EC Tablet PO (06:20)
[2023-09-23] MEDS: piperacillin-tazobactam 3.375 GM in sodium chloride 0.9% (plus) 50 ML IV (06:24)
--- NOTE | 2023-09-23 09:50 | FL_ITS ---
WS: [id number] Exam: FL barium swallow modifd [id number] Date/Time of Exam: 09/23/2023 11:09 AM Reason For Exam: Oral dysphagia Fluoroscopy time: 3min [id number] minutes # of spot films: 0 Modified barium swallow test was performed in conjunction with the speech therapy service. The patient experienced aspiration of the upper trachea when ingesting thin liquid barium solutions. There was also pooling in the piriform sinuses when the patient ingested nectar consistency barium so lution. The patient tolerated swallowed barium mixture foodstuffs without penetration or aspiration. The patient ingested a barium tablet without difficulty. FL/FL barium swallow modifd [id number] IMPRESSION: 1. The exam is positive for aspiration when the patient ingested thin liquid ba rium solution. 2. There was moderate pooling of nectar consistency barium foodstuffs into the piriform sinuses. A separate report and recommendations will follow from the speech therapy servi ce.
[2023-09-23] MEDS: acyclovir 400 mg Tablet 800 MG PO (09:54)
[2023-09-23] MEDS: ropinirole 0.25 mg Tablet 0.5 MG PO ×2 (09:54→18:10)
[2023-09-23] MEDS: metoprolol succinate ER (24 HR) 50 mg Tablet PO (09:55)
[2023-09-23] MEDS: sennosides-docusate Tablet 2 TAB PO ×2 (09:55→18:11)
[2023-09-23] MEDS: lisinopril 20 mg Tablet PO (09:55)
[2023-09-23] MEDS: pantoprazole 40 mg SDV IVP (09:56)
--- NOTE | 2023-09-23 11:20 | P.PN_ITS ---
Subjective 2 Subjective: Patient is doing well Will request modified barium swallow to know more about her food consistencies that she can tolerate via p.o. route Trickle feed 50 mill per hour PEG tube on board Vitals/I&O/Wt Last Vital Signs Temp 98.0 F 09/23/23 08:00 Pulse 70 09/23/23 08:34 Resp 16 09/23/23 08:34 BP 149/78 09/23/23 08:00 Pulse Ox 92 09/23/23 08:34 O2 Del Method Room Air 09/23/23 08:34 O2 Flow Rate 6 09/21/23 08:31 09/22/23 09/23/23 09/23/23 22:59 06:59 14:59 Intake Total 410 / 1180 50 / 1230 Output Total 350 / 700 Balance 60 / 480 50 / 530 Weight last 48 hrs Weight 66.338 kg Weight 68.039 kg Physical Exam 2 Narrative: Patient is awake and alert No active complaints Pleasant cooperative Nonfocal neuroexam GCS 15 Abdomen soft S1, S2 Currently on room air Data 09/23/23 04:20 09/22/23 02:59 Micro: Microbiology 09/17/23 23:01 Blood Culture - Final Blood NO GROWTH AFTER 5 DAYS 09/17/23 22:57 Blood Culture - Final Blood NO GROWTH AFTER 5 DAYS A&P Assessment and plan (1) DNR (do not resuscitate): (2) S/P AVR (aortic valve replacement): (3) HTN (hypertension): Qualifiers: Hypertension type: essential hypertension Qualified Code(s): I10 - Essential (primary) hypertension (4) Dysphagia: (5) Pneumonia: Qualifiers: Laterality: bilateral Lung location: lower lobe of lung Pneumonia type: due to unspecified organism Qualified Code(s): J18.9 - Pneumonia, unspecified organism (6) Aspiration into airway: Plan Patient is afebrile Discontinue IV antibiotics Request modified barium swallow PEG tube feeds with trickle feed 50 mill per hour Will will not advance today Will start bolus feeds starting tomorrow if she ends up staying 1 more day in the hospital Awaiting authorization Otherwise cleared to be discharged from the hospital Appreciate speech therapy recommendations DNR/DNI Attestations 2 Medical Necessity Statement*: Awaiting discharge after authorization Diagnoses DNR (do not resuscitate) Z66 S/P AVR (aortic valve replacement) Z95.2 Essential hypertension I10 Hypertension type: essential hypertension Dysphagia R13.10 Pneumonia J18.9 Laterality: bilateral Lung location: lower lobe of lung Pneumonia type: due to unspecified organism Aspiration into airway T17.908A
[2023-09-23] MEDS: AUSTEDO 24 MG 1 EACH PO (12:37)
--- NOTE | 2023-09-23 14:28 | P.PN_ITS ---
Subjective 2 Subjective: Patient showing good progression after PEG tube placement she is now postoperative day 2. She is tolerating tube feeds, no significant abdominal pain. Vitals/I&O/Wt Last Vital Signs Temp 98.0 F 09/23/23 12:00 Pulse 73 09/23/23 12:00 Resp 18 09/23/23 12:00 BP 161/88 09/23/23 12:00 Pulse Ox 97 09/23/23 12:00 O2 Del Method Room Air 09/23/23 12:00 O2 Flow Rate 6 09/21/23 08:31 09/22/23 09/23/23 09/23/23 22:59 06:59 14:59 Intake Total 410 / 1180 50 / 1230 Output Total 350 / 700 Balance 60 / 480 50 / 530 Weight last 48 hrs Weight 146 lb 4 oz Weight 150 lb Physical Exam 2 GI: OTHER: Abdomen is soft, nontender, nondistended, surgical incision appears healthy, without evidence of leakage or infection. Data 09/23/23 04:20 09/22/23 02:59 Micro: Microbiology 09/17/23 23:01 Blood Culture - Final Blood NO GROWTH AFTER 5 DAYS 09/17/23 22:57 Blood Culture - Final Blood NO GROWTH AFTER 5 DAYS A&P Assessment and plan (1) Left acute arterial ischemic stroke, MCA (middle cerebral artery): Plan Patient is showing very good progression after PEG tube placement. Can continue advancing tube feeds to goal as indicated by primary team. If there is no downtrend in her hemoglobin she should be okay to resume anticoagulation tomorrow. Disposition per primary team. Attestations 2 Medical Necessity Statement*: Per primary Coding Level of Care Code Acute Code for Chg Fwd Diagnoses Left acute arterial ischemic stroke, MCA (middle cerebral artery) I63.512
[2023-09-23] MEDS: atorvastatin 40 mg Tablet 80 MG PO (18:11)
[2023-09-24] VITALS (7 sets, daily range): BP systolic 151–154; BP diastolic 70–77; PULSE 89–108; RESP 16–19; TEMP 36.6–37.4; O2SAT 95–97
[2023-09-24] MEDS: lisinopril 20 mg Tablet PO (05:38)
[2023-09-24] MEDS: amlodipine 10 mg Tablet PO (05:38)
[2023-09-24] MEDS: aspirin 81 mg EC Tablet PO (05:38)
--- NOTE | 2023-09-24 05:48 | PC.NURSE ---
Metoprolol ER 50 mg not given, patient having extremely difficulty swallowing medications whole. Unable to crush ER tablet formation. will inform day shift to see if this can be switched.
[2023-09-24 09:24] LABS: Basophils # 0.1 10^3/uL (0.0-0.1); Basophils % 0.4 %; Eosinophils # 0.5 10^3/uL (0.0-0.8); Eosinophils % 3.3 %; Hematocrit 41.8 % (36-47); Lymphocytes # 1.3 10^3/uL (0.8-4.8); Lymphocytes % 9.2 %; Mean Corpuscular HGB Conc 32.3 g/dL (30-55); Mean Corpuscular Hemoglobin 30.1 pg (27-33); Mean Corpuscular Volume 93.1 fl (85-98); Monocytes # 1.5 10^3/uL (0.2-0.9); Monocytes % 10.9 %; Neutrophils # 10.68 10^3/uL (1.8-7.7); Neutrophils % 75.7 %; Nucleated Red Blood Cells % 0 %; Platelet Count 205 10^3/cmm (157-399); Red Blood Count 4.49 10^6/uL (3.85-5.65); Red Cell Distribution Width 13.5 % (12.1-15.1); White Blood Count 14.12 10^3/uL (3.29-11.43)
[2023-09-24] MEDS: ropinirole 0.25 mg Tablet 0.5 MG PO (09:25)
[2023-09-24] MEDS: acyclovir 400 mg Tablet 800 MG PO (09:25)
[2023-09-24] MEDS: sennosides-docusate Tablet 2 TAB PO (09:26)
[2023-09-24] MEDS: pantoprazole 40 mg SDV IVP (09:26)
--- NOTE | 2023-09-24 11:21 | PM.DCS ---
Discharge Providers Date of Admission: 09/17/23 22:17 Date of Discharge: September 24, 2023 Attending Provider at Admission: Gayle Alicea MD Attending Provider at Discharge: Brent Rojas MD Diagnoses at Discharge Discharge Diagnosis (1) Left acute arterial ischemic stroke, MCA (middle cerebral artery): Status: Acute Reason for Visit Reason for Visit: [facility] Hospital Course Hospital Course 78-year-old female with history of orthostatic hypotension, COPD, obstructive sleep apnea, aortic stenosis status post aortic valve replacement presented to the hospital with chief complaint of altered mental status, and left-sided weakness. Patient had TNKase at [facility] 1 month before her presentation to the ER. Case was discussed with Dr. Jin who recommended against TNKase at this time because of recent use. Her symptoms improved there was concern for TIA. Patient lost ability to swallow speech therapy recommended only clear liquids, she was deemed not a suitable candidate to resume diet however patient and her daughter both decided to go with PEG tube placement, she was made DNR/DNI, PEG tube was placed by general surgeon 2 days after her last dose of Plavix,, her dual antiplatelet therapy will be resumed 72 hours after PEG tube placement, her PEG tube was placed on 09/20, trickle feed was started on 09/21, 24 h after the tube placement, patient is being discharged with stable hemodynamics To avoid significant aspiration we have recommended bolus feeds only, Bolus feed will be started 72 hours after PEG tube placement Her C. difficile PCR was positive however toxins were negative, she was put on p.o. vancomycin 10-day regimen, She was given antibiotics for aspiration pneumonia during hospitalization, she has finished 5 days of antibiotics I would not continue at the time of discharge, she is afebrile no leukocytosis Physical Exam Narrative: Mild left-sided weakness Dysphagia Able to comprehend and answer questions S1, S2 Currently on room air Pleasant cooperative Discharge Data Studies Completed and Pending Completed Studies During Hospitalization Category Date Time Status CT head thrombolytic 87801 Stat Cat Scan 09/17/23 19:16 Completed XR chest 1V portable [id number] Stat Exams 09/17/23 19:50 Completed Pending at discharge Category Date Time Status Blood Culture Stat Lab 09/17/23 23:01 Results CBC Auto Diff [Complete Blood Count w/Auto] AM LABS Lab 09/23/23 04:00 Ordered CBC Auto Diff [Complete Blood Count w/Auto] AM LABS Lab 09/24/23 04:00 Ordered Sputum Culture and Gram Stain Stat Lab 09/17/23 23:31 Uncollected Radiology Impressions Head CT 09/17/23 19:16 IMPRESSION: No acute intracranial findings. ASSESSMENT: ASPECTS ([place] Stroke Program Early CT Score) is 10. Chest X-Ray 09/17/23 19:50 IMPRESSION: 1. Mild bibasilar atelectasis and/or pneumonia. 2. Stable sternotomy. 3. Increased heart size with mild cardiomegaly. Laboratory Results WBC 10.61 10^3/uL (3.29-11.43) 09/22/23 02:59 RBC 4.50 10^6/uL (3.85-5.65) 09/22/23 02:59 Hgb 13.40 g/dL (11.27-16.99) 09/22/23 02:59 Hct 41.0 % (36-47) 09/22/23 02:59 MCV 91.1 fl (85-98) 09/22/23 02:59 MCH 29.8 pg (27-33) 09/22/23 02:59 MCHC 32.7 g/dL (30-55) 09/22/23 02:59 RDW 13.2 % (12.1-15.1) 09/22/23 02:59 Plt Count 200 10^3/cmm (157-399) 09/22/23 02:59 MPV 10.1 fL (7.4-10.4) 09/22/23 02:59 Neut % (Auto) 70.2 % 09/22/23 02:59 Lymph % (Auto) 16.2 % 09/22/23 02:59 [place] % (Auto) 10.7 % 09/22/23 02:59 Eos % (Auto) 2.0 % 09/22/23 02:59 Baso % (Auto) 0.5 % 09/22/23 02:59 Neut # (Auto) 7.45 10^3/uL (1.8-7.7) 09/22/23 02:59 Lymph # (Auto) 1.7 10^3/uL (0.8-4.8) 09/22/23 02:59 [place] # (Auto) 1.1 10^3/uL (0.2-0.9) H 09/22/23 02:59 Eos # (Auto) 0.2 10^3/uL (0.0-0.8) 09/22/23 02:59 Baso # (Auto) 0.1 10^3/uL (0.0-0.1) 09/22/23 02:59 Nucleated RBC % (auto) 0 % 09/22/23 02:59 Nucleated RBCs # 0.0 /100WBC 09/22/23 02:59 PT 14.80 SECONDS (12.1-14.9) 09/17/23 19:55 INR 1.12 (0.8-1.2) 09/17/23 19:55 APTT 30.7 SECONDS (23.9-36.7) 09/17/23 19:55 Specimen Type Arterial 09/17/23 20:05 Sample Site Brachial, right 09/17/23 20:05 ABG pH 7.38 (7.35-7.45) 09/17/23 20:05 ABG pCO2 44.0 mmHg (35-45) 09/17/23 20:05 ABG pO2 93.4 mmHg (80.0-100.0) 09/17/23 20:05 ABG HCO3 25.7 mmol/L (22-26) 09/17/23 20:05 ABG O2 Saturation 98.2 09/17/23 20:05 ABG Base Excess 0.3 mmol/L (-2.0-2.0) 09/17/23 20:05 Brian Test Pos 09/17/23 20:05 A-a O2 Gradient 0.0 mmHg (5-10) L 09/17/23 20:05 Hematocrit 34.9 % (37-47) L 09/17/23 20:05 Hgb O2 Saturation 96.1 % (95-100) 09/17/23 20:05 Carboxyhemoglobin 1.6 %THgb (0.4-20.1) 09/17/23 20:05 Methemoglobin 0.5 % (0.4-1.5) 09/17/23 20:05 Total Hemoglobin 11.4 g/dL (12-16) L 09/17/23 20:05 Sodium 137.0 mmol/L (131-143) 09/17/23 20:05 Potassium 4.5 mmol/L (3.5-5.0) 09/17/23 20:05 Glucose 151.0 mg/dL (70-115) H 09/17/23 20:05 Ionized Calcium 1.2 mmol/L (1.1-1.4) 09/17/23 20:05 O2 Delivery Device Nc 09/17/23 20:05 O2 Liters/Min 2.0 % 09/17/23 20:05 Veterinary Poultry Inspector ID [email or web address] 09/17/23 20:05 Sodium 140 mmol/L (136-145) 09/22/23 02:59 Potassium 3.9 mmol/L (3.5-5.1) 09/22/23 02:59 Chloride 104 mmol/L (98-107) 09/22/23 02:59 Carbon Dioxide 27 mmol/L (22-29) 09/22/23 02:59 Anion Gap 12.9 (5-19) 09/22/23 02:59 BUN 6 mg/dL (8-23) L 09/22/23 02:59 Creatinine 0.9 mg/dL (0.5-0.9) 09/22/23 02:59 GFR Calculation Not Reportable 09/22/23 02:59 Glucose 109 mg/dL (65-115) 09/22/23 02:59 POC Glucose 163 mg/dL (70-110) H 09/17/23 20:07 Calculated Osmolality 288 mOsm/kg (285-295) 09/22/23 02:59 Lactic Acid 1.9 mmol/L (0.5-2.2) 09/17/23 19:55 Calcium 8.1 mg/dL (8.5-10.5) L 09/22/23 02:59 Phosphorus 3.2 mg/dL (2.5-4.5) 09/22/23 02:59 Magnesium 2.1 mg/dL (1.7-2.3) 09/22/23 02:59 Total Bilirubin 0.4 mg/dL (0.15-1.2) 09/22/23 02:59 AST 17 U/L (0-32) 09/22/23 02:59 ALT 14 U/L (0-33) 09/22/23 02:59 Alkaline Phosphatase 98 U/L (35-105) 09/22/23 02:59 C-Reactive Protein 131.2 mg/L (0.0-4.9) H 09/17/23 19:55 NT-Pro-B Natriuret Pep 1403 pg/mL (0-450) H 09/17/23 19:55 Total Protein 6.3 g/dL (6.6-8.7) L 09/22/23 02:59 Albumin 3.2 g/dL (3.5-5.2) L 09/22/23 02:59 Globulin 3.1 g/dL (1.3-4.6) 09/22/23 02:59 Procalcitonin 0.18 ng/mL (0-0.5) 09/17/23 19:55 Procalcitonin 0.18 ng/mL (0-0.5) 09/17/23 19:55 TSH 2.15 uIU/mL (0.27-4.20) 09/17/23 19: TSH 4.02 uIU/mL (0.27-4.20) 09/17/23 19:55 Urine Color Yellow (Yellow) 09/17/23 21:00 Urine Appearance Clear (CLEAR) 09/17/23 21:00 Urine pH 5 (5-7) 09/17/23 21:00 Ur Specific [place] 1.020 (1.005-1.030) 09/17/23 21:00 Urine Protein Trace (Negative) 09/17/23 21:00 Urine Glucose (UA) Norm (Normal) 09/17/23 21:00 Urine Ketones Negative (Negative) 09/17/23 21:00 Urine Blood Neg (Negative) 09/17/23 21:00 Urine Nitrate Negative (Negative) 09/17/23 21:00 Urine Bilirubin 1+ (Negative) H 09/17/23 21:00 Urine Urobilinogen Neg mg/dL (Negative) 09/17/23 21:00 Ur Leukocyte Esterase Negative (Negative) 09/17/23 21:00 Urine RBC None /hpf (0-2) 09/17/23 21:00 Urine WBC None /hpf (0-5) 09/17/23 21:00 Ur Squamous Epith Cells 0-4 /hpf (0-5) H 09/17/23 21:00 Amorphous Sediment Not Reportable 09/17/23 21:00 Urine Bacteria 2+ /hpf (NONE) H 09/17/23 21:00 Urine Mucus 3+ /hpf 09/17/23 21:00 Urine Opiates Screen Positive ng/mL (Negative) H 09/17/23 21:00 Ur Barbiturates Screen Negative ng/mL (Negative) 09/17/23 21:00 Ur Phencyclidine Scrn Negative ng/mL (Negative) 09/17/23 21:00 Ur Amphetamines Screen Negative ng/mL (Negative) 09/17/23 21:00 U Benzodiazepines Scrn Negative ng/mL (Negative) 09/17/23 21:00 Urine Cocaine Screen Negative ng/mL (Negative) 09/17/23 21:00 U Marijuana (THC) Screen Negative ng/mL (Negative) 09/17/23 21:00 C. difficile (PCR) Positive (Negative) H 09/20/23 15:45 C.difficile Tox Confrm Negative (Negative) 09/20/23 15:45 Vitals Last Vital Signs Temp 98.4 F 09/22/23 07:36 Pulse 71 09/22/23 09:24 Resp 22 H 09/22/23 07:36 BP 150/67 09/22/23 07:36 Pulse Ox 96 09/22/23 07:36 O2 Del Method Room Air 09/22/23 07:36 O2 Flow Rate 6 09/21/23 08:31 Discharge Plan Discharge Patient Disposition: Xfer SNF Condition: Stable Prescriptions: New vancomycin 125 mg Capsule 125 mg PO Q6H 10 Days Qty: 40 0RF Continued tizanidine 4 mg Tablet 4 mg PO TID PRN (Reason: muscle spasms) hydrocodone-acetaminophen 5-325 mg Tablet 1 tab PO Q6H PRN (Reason: Pain) omeprazole 40 mg Capsule,Delayed Release(Dr/Ec) 40 mg PO QAM aspirin 81 mg Tablet,Delayed Release (Dr/Ec) 81 mg PO QAM acyclovir 800 mg Tablet 800 mg PO DAILY Systane (PF) 0.4-0.3 % Dropperette 1 drp OPHTHALMIC (EYE) QID PRN (Reason: Dry Eyes) atorvastatin 80 mg Tablet 80 mg PO QPM acetaminophen 325 mg Tablet 650 mg PO Q6H PRN (Reason: Pain) Rx Instructions: PAIN albuterol sulfate 2.5 mg /3 mL (0.083 %) Solution For Nebulization 2.5 mg INHALATION Q6H PRN (Reason: Shortness Of Breath) metoprolol succinate 50 mg Tablet Extended Release 24 Hr 50 mg PO QAM amlodipine 10 mg Tablet 10 mg PO QAM ropinirole 0.5 mg Tablet 0.5 mg PO BID azelastine 137 mcg (0.1 %) Aerosol,[place] 1 spray INTRANASAL BID PRN (Reason: RHINITIS) Rx Instructions: administer into each nostril oxybutynin chloride 5 mg Tablet 5 mg PO QAM fluticasone propionate 50 mcg/actuation [place],Suspension 2 spray INTRANASAL Q12H PRN (Reason: RHINITIS) Rx Instructions: administer into each nostril lisinopril 20 mg tablet 20 mg PO QAM Held clopidogrel 75 mg Tablet 75 mg PO QAM Hold Instructions: Resume on 09/24/23. Discontinued diphenhydramine HCl 25 mg Tablet 25 mg PO BEDTIME hydroxyzine HCl 25 mg Tablet 25 mg PO BID PRN (Reason: Itching) meclizine 25 mg Tablet 25 mg PO Q8H PRN (Reason: Dizziness) Discharge Orders: Discharge Order (Routine); Ordered 09/24/23 Ordered By: Brent Rojas Referrals: Edmond North MD [Physician] - 10/07/23 10:15 am Mandeep Madrigal MD [Physician] - Discharge Diet: As Directed Patient Instructions: Altered Mental Status (ED), GI Discharge Instructions Activity Restrictions/Additional Instructions: Jevity 1.5 bolus feed recommendations: Bolus feeds should be started 72 hours after PEG tube placement, which means she can start taking bolus feeds on 09/23 Until 09/23 keep Jevity 1.5 at 15 mL/h 09/23 onwards bolus feeds: Jevity 1.5 at 1 can 237 mL at breakfast, 2 cans at lunch, 1 can at dinner Free water flushes 150 mL every 6 hours Patient still can have clear liquids as tolerated Discharge Attestations Time Spent in Discharge Care*: greater than 30 min Quality Metrics Clinical Quality Measures [ No reported AMI, CVA or VTE this stay] Coding Level of Care Code Acute Code for Chg Fwd Diagnoses Left acute arterial ischemic stroke, MCA (middle cerebral artery) I63.512
--- NOTE | 2023-09-24 11:23 | P.PN_ITS ---
Subjective 2 Subjective: Patient evaluated today at the bedside, she is doing fine, has tolerated tube feeds, no significant abdominal pain. Vitals/I&O/Wt Last Vital Signs Temp 97.9 F 09/24/23 08:09 Pulse 95 09/24/23 08:09 Resp 18 09/24/23 08:09 BP 151/72 09/24/23 08:09 Pulse Ox 96 09/24/23 08:09 O2 Del Method Room Air 09/24/23 08:09 O2 Flow Rate 6 09/21/23 08:31 09/23/23 09/24/23 09/24/23 22:59 06:59 14:59 Intake Total 335 / 335 120 / 455 480 / 480 Output Total Balance 335 / 335 120 / 455 479 / 479 Weight last 48 hrs Weight 150 lb 4.8 oz Weight 146 lb 4 oz Physical Exam 2 GI: OTHER: PEG tube site looks well, tube was rotated on we ensured the bumper was normal too tight against the skin. No evidence of infection at this time. Data 09/24/23 09:10 09/22/23 02:59 A&P Assessment and plan (1) Left acute arterial ischemic stroke, MCA (middle cerebral artery): Plan Patient has had a good progression after PEG tube placement, incarcerated tube feeds and no significant abdominal pain, physical examination is pretty unremarkable. Patient can follow-up with me in 2 weeks to ensure that the PEG tube is healing fine. All other care per primary team. Of note, hemoglobin today is stable Attestations 2 Medical Necessity Statement*: Per medical team. Coding Level of Care Code Acute Code for Chg Fwd Diagnoses Left acute arterial ischemic stroke, MCA (middle cerebral artery) I63.512
[2023-09-24 13:59] LABS: SARS Covid-2 Antigen negative (Negative)
== END 2023-09-24 13:31 | disposition skilled nursing facility (03) | DRG 177 ==
LOC: ER 22:17 → CSU 22:40 → MEDSURG 09-22 23:01
PROVIDERS: Internal Medicine; Surgery; Admitting Provider Internal Medicine; Emergency Provider Emergency Medicine; Visit Provider Internal Medicine
PROC: 0DJ08ZZ Inspection of Upper Intestinal Tract, Via Natural or Artificial Opening Endoscopic (ICD-10-PCS; CPT 43235; principal; 2023-09-21 08:00)
PROC: 0DH63UZ Insertion of Feeding Device into Stomach, Percutaneous Approach (ICD-10-PCS; CPT 43246; 2023-09-21 08:00)
DX: J69.0 Pneumonitis due to inhalation of food and vomit (principal); J96.01 Acute respiratory failure with hypoxia; G45.9 Transient cerebral ischemic attack, unspecified; I69.391 Dysphagia following cerebral infarction; R13.10 Dysphagia, unspecified; R29.6 Repeated falls; Z79.02 Long term (current) use of antithrombotics/antiplatelets; Z66 Do not resuscitate; I10 Essential (primary) hypertension; Z87.891 Personal history of nicotine dependence; B96.89 Other specified bacterial agents as the cause of diseases classified elsewhere; Z95.2 Presence of prosthetic heart valve; G25.81 Restless legs syndrome; J44.9 Chronic obstructive pulmonary disease, unspecified
CPT/HCPCS: 36415; 36416; 36600; 70450; 70496; 70498; 71045; 74230; 80048; 80051; 80053; 80069; 80306; 81001; 82330; 82805; 82962; 83605; 83735; 83880; 84100; 84145; 84443; 85025; 85610; 85730; 86140; 87040; 87324; 87426; 87493; 92507; 92523; 92526; 92610; 92611; 93005; 96365; 96372; 97110; 97116; 97161; 97166; 97530; 99285; C9113; J1644; J2543; J2704; J2919; J7030; J8499; Q9967

== ENCOUNTER 2023-09-25 11:51 | Emergency (ER) | payer MEDICARE, MEDICAID, SELFPAY ==
[2023-09-25 11:52] VITALS: BP 52/31; PULSE 68; RESP 29; TEMP 36.1; O2SAT 90; BMI 24.7
--- NOTE | 2023-09-25 11:57 | ECG_ITS ---
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 Measurements Intervals Leslie Rate: 71 P: 42 ME: 140 QRS: -40 QRSD: 131 T: 70 QT: 419 QTc: 457 Interpretive Statements SINUS RHYTHM WITH SINUS ARRHYTHMIA LEFT AXIS DEVIATION [QRS AXIS < -30] RIGHT BUNDLE BRANCH BLOCK [120+ ms QRS DURATION, UPRIGHT V1, 40+ ms S IN I/aVL/V4/V5/V6] VOLTAGE CRITERIA FOR LVH [MEETS CRITERIA IN ONE OF: R(aVL), S(V1), R(V5), R(V5/V6)+S(V1)] Compared to ECG 09/17/2023 19:10:37 No significant changes Electronically Signed On 09-25-2023 12:31:45 CDT by Caesar Robertson M.D. [email or web address]
--- NOTE | 2023-09-25 12:03 | CT_ITS ---
WS: [id number] CT HEAD TECHNIQUE: Noncontrast CT of the head obtained from the skullbase to the vertex. CLINICAL INFORMATION: Symptoms of acute stroke COMPARISON: CT 09/17/2023 DLP: [address] scans at [facility] use at least one of these dose optimization techniques: automated e xposure control; mA and/or kV adjustment per patient size (includes targeted exams where dose is matc hed to clinical indication); or iterative reconstruction. FINDINGS: No evidence of intracranial hemorrhage or mass effect. Ventricular system and basal cisterns are tavares nt. Moderate small vessel changes with mild parenchymal volume loss. No extra-axial fluid collections . No evidence of mass or mass effect. Vascular calcification. Tiny chronic lacunar infarct in the RIG HT cerebellum. Paranasal sinuses and mastoid air cells are well aerated. .Normal visualized soft tissues. Partially visualized nasopharyngeal tube. CT/CT head thrombolytic [id number] IMPRESSION: 1. No evidence of intracranial hemorrhage or mass effect. 2. Moderate small vessel changes. Mild parenchymal volume loss. 3. No significant intracranial changes since 09/17/2023 Notified Arnel Head DO at 09/25/2023 12:36 PM.
--- NOTE | 2023-09-25 12:03 | W.ED.AMS ---
HPI - Altered Mental Status General: Chief Complaint: Altered Mental Status Stated Complaint: UNRESPONSIVE Time Seen by Provider: 09/25/23 11:55 History of Present Illness: The patient, Nadege Sharpe, is currently unresponsive. According [facility] staff Nadege had a sudden change in mental status from her usual self to being unresponsive, which prompted her transfer to the emergency room. Pearl (Nadege's sister) was unaware of Nadege's return to the hospital until contacted. Nadege is described as snoring like she is asleep, but attempts to wake her have been unsuccessful. Nadege has a history of multiple strokes, and there was a recent concern by a doctor at [facility] that she might be experiencing seizures instead of strokes. This doctor noted that Nadege does not have a fixed gaze, which is more typical for strokes, suggesting the possibility of seizures. Nadege has a chest scar, but the origin of this scar is unknown as those who knew were unable to provide details. Her vital signs are reported as normal, and her blood glucose level was last recorded at 125. She has a Do Not Resuscitate, Do Not Intubate (DNR-DNI) order that she signed, but it has not yet been signed by a physician. Regarding medications, Pearl mentioned that Nadege has been missing a medication for tardive dyskinesia (TD) for two months because the nursing facility did not allow her to bring it in. The medication starts with an A but the exact name was not recalled. This medication issue is suspected to potentially be contributing to her current condition. Overall, the cause of Nadege's unresponsiveness is unclear, and further evaluation and lab work are planned to investigate possible causes such as another stroke, infection, or issues related to her medication. Review of Systems General: Reports: ROS unobtainable due to mental status PFSH ED PFSH: Medical History tPA adm status 24 hr TUBE SKIVER July 2023 Orthostatic hypotension Tardive dyskinesia DNR (do not resuscitate) Hypercholesterolemia Chronic obstructive pulmonary disease, unspecified Labyrinthitis Backache Bipolar affective disorder Arthropathy, unspecified HTN (hypertension) RLS (restless legs syndrome) Sleep apnea Peripheral vertigo Irritable bowel syndrome Aortic stenosis, severe Surgical History History of nasal surgery Status post aortic valve replacement with bioprosthetic valve History of abdominal hysterectomy H/O foot surgery H/O eye surgery H/O oral surgery Hx of cholecystectomy History of appendectomy Family History Other Hypertension Social History Smoking and tobacco/nicotine status: former use of tobacco/nicotine Quit status (tobacco/nicotine): has quit using Year quit tobacco: 1979 - ciggs x 6 Years Second hand smoke exposure: No Alcohol intake: never Substance/Drug Use: never Caregiver/support person: Yes Lives independently: Yes Household members: none Housing: House Marital status: / Current occupational status: retired and disabled Pets and animals: Yes Pets & animals: dog(s) Do you think of yourself as: Straight/Heterosexual Current gender identity: Female Physical Exam Const: COMMON NORMALS: well nourished EXAM LIMITATIONS: altered mental status ORIENTATION/CONSCIOUSNESS: Yes patient obtunded HENMT: COMMON NORMALS: normocephalic HEAD & SCALP: normocephalic Neck/C-Spine: COMMON NORMALS: full ROM and supple Resp: COMMON NORMALS: normal respiratory effort, No retractions and clear to auscultation bilaterally AUSCULTATION: clear to auscultation bilaterally Cardio: COMMON NORMALS: regular rate, regular rhythm, No gallops present (Cardio) and No murmurs present (Cardio) RATE: regular rate RHYTHM: regular rhythm GI: COMMON NORMALS: Soft to palpation and non-tender PALPATION: Yes Soft to palpation Extremity: GENERAL: Yes normal exam except as noted Skin: COMMON NORMALS: no rashes or lesions noted GENERAL SKIN EXAM: no rashes or lesions noted Course Vital Signs: Vital signs: Vital Signs Temperature 97.0 F L 09/25/23 11:52 Pulse Rate 65 09/25/23 13:00 Respiratory Rate 28 H 09/25/23 13:00 Blood Pressure 107/55 09/25/23 13:00 Pulse Oximetry 93 09/25/23 13:00 Oxygen Delivery Me thod Room Air 09/25/23 11:52 MDM - Altered Mental Status Medical Decision Making 78-year-old female presented from the [facility] via EMS for altered mental status. Upon presentation she was snoring and localized to pain but did not awaken. Evaluation here in the emergency department has not demonstrated any inciting factor including infection, intracranial hemorrhage, hypoxia, hypercapnia, respiratory failure. Most likely diagnosis is extension of her previous stroke. She is outside the window for tPA. Discussed with the patient's DPOA, Pearl Brasher. She was in agreement that the patient should return to the [place] [facility] on comfort measures. Also discussed the need for a hospice evaluation. Pearl stated that she would get with the catalytic case operator at the [facility]. Patient was discharged back to the [facility] in stable condition. Lab Data 09/25/23 12:02 09/25/23 12:[address] 09/25/23 12:03 IMPRESSION: 1. No evidence of intracranial hemorrhage or mass effect. 2. Moderate small vessel changes. Mild parenchymal volume loss. 3. No significant intracranial changes since 09/17/2023 Notified Arnel Law, DO at 09/25/2023 12:36 PM. Chest X-Ray 09/25/23 12:25 IMPRESSION: 1. No acute cardiopulmonary finding. Laboratory Results WBC 9.49 10^3/uL (3.29-11.43) 09/25/23 12:02 RBC 3.82 10^6/uL (3.85-5.65) L 09/25/23 12:02 Hgb 11.40 g/dL (11.27-16.99) 09/25/23 12:02 Hct 35.7 % (36-47) L 09/25/23 12:02 MCV 93.5 fl (85-98) 09/25/23 12:02 MCH 29.8 pg (27-33) 09/25/23 12:02 MCHC 31.9 g/dL (30-55) 09/25/23 12:02 RDW 13.8 % (12.1-15.1) 09/25/23 12:02 Plt Count 190 10^3/cmm (157-399) 09/25/23 12:02 MPV 10.6 fL (7.4-10.4) H 09/25/23 12:02 Neut % (Auto) 67.6 % 09/25/23 12:02 Lymph % (Auto) 13.0 % 09/25/23 12:02 Porter % (Auto) 13.2 % 09/25/23 12:02 Eos % (Auto) 5.0 % 09/25/23 12:02 Baso % (Auto) 0.8 % 09/25/23 12:02 Neut # (Auto) 6.42 10^3/uL (1.8-7.7) 09/25/23 12:02 Lymph # (Auto) 1.2 10^3/uL (0.8-4.8) 09/25/23 12:02 Porter # (Auto) 1.3 10^3/uL (0.2-0.9) H 09/25/23 12:02 Eos # (Auto) 0.5 10^3/uL (0.0-0.8) 09/25/23 12:02 Baso # (Auto) 0.1 10^3/uL (0.0-0.1) 09/25/23 12:02 Nucleated RBC % (auto) 0 % 09/25/23 12:02 Nucleated RBCs # 0.0 /100WBC 09/25/23 12:02 PT 14.40 SECONDS (12.1-14.9) 09/25/23 12:02 INR 1.08 (0.8-1.2) 09/25/23 12:02 APTT 31.5 SECONDS (23.9-36.7) 09/25/23 12:02 Specimen Type Arterial 09/25/23 12:14 Sample Site Radial, left 09/25/23 12:14 ABG pH 7.38 (7.35-7.45) 09/25/23 12:14 ABG pCO2 47.5 mmHg (35-45) H 09/25/23 12:14 ABG pO2 75.1 mmHg (80.0-100.0) L 09/25/23 12:14 ABG HCO3 28.0 mmol/L (22-26) H 09/25/23 12:14 ABG O2 Saturation 95.4 09/25/23 12:14 ABG Base Excess 2.3 mmol/L (-2.0-2.0) H 09/25/23 12:14 Brian Test Pos 09/25/23 12:14 A-a O2 Gradient 2.1 mmHg (5-10) L 09/25/23 12:14 Hematocrit 35.1 % (37-47) L 09/25/23 12:14 Hgb O2 Saturation 93.3 % (95-100) L 09/25/23 12:14 Carboxyhemoglobin 1.6 %THgb (0.4-20.1) 09/25/23 12:14 Methemoglobin 0.6 % (0.4-1.5) 09/25/23 12:14 Total Hemoglobin 11.4 g/dL (12-16) L 09/25/23 12:14 Sodium 139.0 mmol/L (131-143) 09/25/23 12:14 Potassium 4.3 mmol/L (3.5-5.0) 09/25/23 12:14 Glucose 132.0 mg/dL (70-115) H 09/25/23 12:14 Ionized Calcium 1.2 mmol/L (1.1-1.4) 09/25/23 12:14 O2 Delivery Device Nc 09/25/23 12:14 O2 Liters/Min 6.0 % 09/25/23 12:14 Explosive Operator Bomb ID [place] 09/25/23 12:14 Sodium 139 mmol/L (136-145) 09/25/23 12:02 Potassium 4.4 mmol/L (3.5-5.1) 09/25/23 12:02 Chloride 102 mmol/L (98-107) 09/25/23 12:02 Carbon Dioxide 25 mmol/L (22-29) 09/25/23 12:02 Anion Gap 16.4 (5-19) 09/25/23 12:02 BUN 24 mg/dL (8-23) H 09/25/23 12:02 Creatinine 1.2 mg/dL (0.5-0.9) H 09/25/23 12:02 GFR Calculation Not Reportable 09/25/23 12:02 Glucose 119 mg/dL (65-115) H 09/25/23 12:02 Calculated Osmolality 293 mOsm/kg (285-295) 09/25/23 12:02 Calcium 8.4 mg/dL (8.5-10.5) L 09/25/23 12:02 Total Bilirubin 0.6 mg/dL (0.15-1.2) 09/25/23 12:02 AST 12 U/L (0-32) 09/25/23 12:02 ALT 9 U/L (0-33) 09/25/23 12:02 Alkaline Phosphatase 77 U/L (35-105) 09/25/23 12:02 Troponin T Baseline 31 ng/L (0-10) H 09/25/23 12:02 Troponin T 120 Minute 30.61 ng/L (0-10) H 09/25/23 13:51 Delta Troponin T -0.39 ABS# (0-10) L 09/25/23 13:51 Total Protein 5.3 g/dL (6.6-8.7) L 09/25/23 12:02 Albumin 3.1 g/dL (3.5-5.2) L 09/25/23 12:02 Globulin 2.2 g/dL (1.3-4.6) 09/25/23 12:02 Urine Color Yellow (Yellow) 09/25/23 12:39 Urine Appearance Clear (CLEAR) 09/25/23 12:39 Urine pH 5 (5-7) 09/25/23 12:39 Ur Specific Vidal 1.025 (1.005-1.030) 09/25/23 12:39 Urine Protein Trace (Negative) 09/25/23 12:39 Urine Glucose (UA) Norm (Normal) 09/25/23 12:39 Urine Ketones 1+ (Negative) H 09/25/23 12:39 Urine Blood Neg (Negative) 09/25/23 12:39 Urine Nitrate Negative (Negative) 09/25/23 12:39 Urine Bilirubin 1+ (Negative) H 09/25/23 12:39 Urine Urobilinogen Neg mg/dL (Negative) 09/25/23 12:39 Ur Leukocyte Esterase Negative (Negative) 09/25/23 12:39 Urine RBC 0-4 /hpf (0-2) H 09/25/23 12:39 Urine WBC 0-4 /hpf (0-5) H 09/25/23 12:39 Ur Squamous Epith Cells 0-4 /hpf (0-5) H 09/25/23 12:39 Calcium Oxalate Crystal 25-40 /hpf H 09/25/23 12:39 Amorphous Sediment Not Reportable 09/25/23 12:39 Urine Bacteria 1+ /hpf (NONE) H 09/25/23 12:39 Hyaline Casts 5-10 /lpf H 09/25/23 12:39 Urine Mucus 2+ /hpf 09/25/23 12:39 Urine Opiates Screen Negative ng/mL (Negative) 09/25/23 12:39 Ur Barbiturates Screen Negative ng/mL (Negative) 09/25/23 12:39 Ur Phencyclidine Scrn Negative ng/mL (Negative) 09/25/23 12:39 Ur Amphetamines Screen Negative ng/mL (Negative) 09/25/23 12:39 U Benzodiazepines Scrn Negative ng/mL (Negative) 09/25/23 12:39 Urine Cocaine Screen Negative ng/mL (Negative) 09/25/23 12:39 U Marijuana (THC) Screen Negative ng/mL (Negative) 09/25/23 12:39 All radiology interpretation(s) finalized by discharge Discharge Plan Discharge Patient Disposition: Xfer [facility] Clinical Impression: CVA (cerebral vascular accident) Qualifiers: CVA mechanism: other Qualified Code(s): I63.89 - Other cerebral infarction Condition: Stable Discharge Orders: Discharge ED (Routine); Ordered 09/25/23 Ordered By: Arnel Law Discharge Diet: Start new tube feeds as directed Discharge Activity: Resume usual activity Patient Instructions: Altered Mental Status (ED) Activity Restrictions/Additional Instructions: Plan discussed with GIULIA Kang. Patient to return to the [place] [facility] on comfort care. Diagnosis most likely extension of previous stroke. Not candidate for tPA. Encouraged Pearl to get hospice care involved. Return to the emergency department with new or worsening symptoms. Coding Level of Care Code ED Leather Sorter for 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
[2023-09-25] MEDS: naloxone 0.4 mg/ml SDV 0.400000000000000022 MG IVP (12:05)
[2023-09-25 12:15] LABS: Basophils # 0.1 10^3/uL (0.0-0.1); Basophils % 0.8 %; Eosinophils # 0.5 10^3/uL (0.0-0.8); Hematocrit 35.7 % (36-47); Lymphocytes # 1.2 10^3/uL (0.8-4.8); Mean Corpuscular HGB Conc 31.9 g/dL (30-55); Mean Corpuscular Hemoglobin 29.8 pg (27-33); Mean Corpuscular Volume 93.5 fl (85-98); Mean Platelet Volume 10.6 fL (7.4-10.4); Monocytes # 1.3 10^3/uL (0.2-0.9); Monocytes % 13.2 %; Neutrophils # 6.42 10^3/uL (1.8-7.7); Neutrophils % 67.6 %; Nucleated Red Blood Cells % 0 %; Platelet Count 190 10^3/cmm (157-399); Red Blood Count 3.82 10^6/uL (3.85-5.65); Red Cell Distribution Width 13.8 % (12.1-15.1); White Blood Count 9.49 10^3/uL (3.29-11.43)
[2023-09-25 12:19] VITALS: PULSE 69; RESP 28; O2SAT 95
[2023-09-25 12:25] LABS: ABG PCO2 47.5 mmHg (35-45); ABG PH Result 7.38 (7.35-7.45); Alveolar-Arterial Oxygen Gradi 2.1 mmHg (5-10); Arterial Blood Gas Hematocrit 35.1 % (37-47); Base Excess ABG 2.3 mmol/L (-2.0-2.0); Blood Gas Allen Test Pos; Blood Gas Operator Identificat WALCI; Blood Gas Sample Site Radial, left; Blood Gas Sample Type Arterial; Carboxyhemoglobin 1.6 %THgb (0.4-20.1); HGB O2 Sat 93.3 % (95-100); Ionized Calcium Level - ABG 1.2 mmol/L (1.1-1.4); Methemoglobin 0.6 % (0.4-1.5); Oxygen Device NC; Oxygen Saturation ABG 95.4; PO2 ABG 75.1 mmHg (80.0-100.0); Potassium Level - ABG 4.3 mmol/L (3.5-5.0); Total Hemoglobin 11.4 g/dL (12-16)
--- NOTE | 2023-09-25 12:25 | XR_ITS ---
WS: [id number] Exam: XR chest 1V portable [id number] Date/Time of Exam: 09/25/2023 12:32 PM Reason For Exam: AMS Comparison 09/17/2023. The lungs are fully inflated and clear. Cardiomediastinal silhouette is unremarkable. No pleural effu sions. Signs of median sternotomy and CABG surgery. Bony structures are intact. XR/XR chest 1V portable [id number] IMPRESSION: 1. No acute cardiopulmonary finding.
[2023-09-25 12:30] VITALS: BP 94/59; PULSE 65; RESP 29; O2SAT 100
[2023-09-25 12:36] LABS: Alanine Aminotransferase 9 U/L (0-33); Albumin Level 3.1 g/dL (3.5-5.2); Alkaline Phosphatase 77 U/L (35-105); Anion Gap 16.4 (5-19); Aspartate Amino Transferase 12 U/L (0-32); Blood Urea Nitrogen 24 mg/dL (8-23); Calcium 8.4 mg/dL (8.5-10.5); Carbon Dioxide 25 mmol/L (22-29); Chloride 102 mmol/L (98-107); Creatinine Clr Calc Pharmacy 35.7889; Globulin 2.2 g/dL (1.3-4.6); Glucose 119 mg/dL (65-115); INR 1.08 (0.8-1.2); Osmolality Calculated 293 mOsm/kg (285-295); Potassium 4.4 mmol/L (3.5-5.1); Sodium 139 mmol/L (136-145); Total Bilirubin 0.6 mg/dL (0.15-1.2); Total Protein 5.3 g/dL (6.6-8.7); Troponin(5th) Baseline 31 ng/L (0-10)
[2023-09-25 12:37] LABS: Partial Thromboplastin Time 31.5 SECONDS (23.9-36.7)
[2023-09-25 12:56] LABS: Amphetamines Screen Urine Negative (Negative); Barbiturates Screen Urine Negative (Negative); Benzodiazepines Screen Urine Negative (Negative); Cocaine Screen Urine Negative (Negative); Opiate Screen Urine Negative (Negative); PCP Screen Urine Negative (Negative); THC Screen Urine Negative (Negative)
[2023-09-25 12:58] LABS: Add Urine Microscopic? YES; Bilirubin Urine 1+ (Negative); Blood Urine Neg (Negative); Glucose Urine UA Norm (Normal); Ketones Urine 1+ (Negative); Leukocyte Esterase Urine Negative (Negative); Nitrate Urine Negative (Negative); Protein Urine Trace (Negative); Specific Gravity, Urine 1.025 (1.005-1.030); Urine Appearance Clear (CLEAR); Urine Color Yellow (Yellow); Urobilinogen Urine Neg (Negative); pH Urine 5 (5-7)
[2023-09-25 13:00] VITALS: BP 107/55; PULSE 65; RESP 28; O2SAT 93
[2023-09-25 13:01] LABS: Bacteria Urine 1+ /hpf; Calcium Oxalate Crystals Urine 25-40 /hpf; Mucus Urine 2+ /hpf; RBC Urine 0-4 /hpf (0-2); Squamous Epithelial Cell Urine 0-4 /hpf (0-5); WBC Urine 0-4 /hpf (0-5)
[2023-09-25 13:02] LABS: Add Urine Culture? No
--- NOTE | 2023-09-25 14:07 | ECG_ITS ---
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 Measurements Intervals [place] Rate: 68 P: 54 SD: 142 QRS: -37 QRSD: 137 T: 78 QT: 438 QTc: 469 Interpretive Statements SINUS RHYTHM POSSIBLE LEFT ATRIAL ENLARGEMENT [-0.1mV P-WAVE IN V1/V2] LEFT AXIS DEVIATION [QRS AXIS < -30] RIGHT BUNDLE BRANCH BLOCK [120+ ms QRS DURATION, UPRIGHT V1, 40+ ms S IN I/aVL/V4/V5/V6] POSSIBLE LEFT VENTRICULAR HYPERTROPHY [VOLTAGE CRITERIA PLUS LAE OR QRS WIDENING] Compared to ECG 09/25/2023 11:57:29 Sinus arrhythmia no longer present Electronically Signed On 09-25-2023 14:15:30 CDT by Caesar Robertson M.D. [email or web address]
[2023-09-25 14:29] LABS: Troponin 5 2HR 30.61 ng/L (0-10)
[2023-09-25 14:30] LABS: Troponin 5 2HR Delta -0.39 ABS# (0-10)
--- NOTE | 2023-09-25 15:16 | PC.NURSE ---
PT REPORT CALLED TO ANIKET AT [facility].
[2023-09-25 15:27] VITALS: BP 105/44; PULSE 66; O2SAT 98
== END 2023-09-25 15:34 ==
PROVIDERS: Emergency Provider General Practice
DX: I63.89 Other cerebral infarction (principal); Z87.891 Personal history of nicotine dependence; J44.9 Chronic obstructive pulmonary disease, unspecified; I10 Essential (primary) hypertension
CPT/HCPCS: 36415; 36600; 51702; 70450; 71045; 80051; 80053; 80306; 81001; 82330; 82805; 84484; 85025; 85610; 85730; 93005; 96374; 99285; J2310

== ENCOUNTER → 2023-09-28 15:08 | Outpatient (BNVA) | payer MEDICARE, MEDICAID, SELFPAY | PROVIDERS: Visit Provider Podiatrist Foot & Ankle Surgery | DX: G57.61 Lesion of plantar nerve, right lower limb (principal); I63.89 Other cerebral infarction; M20.41 Other hammer toe(s) (acquired), right foot; M20.42 Other hammer toe(s) (acquired), left foot; M21.41 Flat foot [pes planus] (acquired), right foot; M21.42 Flat foot [pes planus] (acquired), left foot; G24.01 Drug induced subacute dyskinesia; T43.505A Adverse effect of unspecified antipsychotics and neuroleptics, initial encounter | CPT/HCPCS: 99213 ==

== ENCOUNTER → 2023-10-14 11:09 | Outpatient (BNVA) | payer MEDICARE, MEDICAID, SELFPAY | PROVIDERS: Visit Provider Surgery | DX: Z93.1 Gastrostomy status (principal) | CPT/HCPCS: 99214 ==

== ENCOUNTER → 2023-11-11 11:40 | Outpatient (BNVA) | payer MEDICARE, MEDICAID, SELFPAY | PROVIDERS: Visit Provider Surgery | DX: Z93.1 Gastrostomy status (principal) | CPT/HCPCS: 99214 ==

== ENCOUNTER → 2023-12-10 08:41 | Outpatient (BNVA) | payer MEDICARE, MEDICAID, SELFPAY | PROVIDERS: Visit Provider Specialist | DX: R26.9 Unspecified abnormalities of gait and mobility (principal); G24.3 Spasmodic torticollis; G37.9 Demyelinating disease of central nervous system, unspecified; I95.1 Orthostatic hypotension | CPT/HCPCS: 99215 ==

== ENCOUNTER 2023-12-16 18:22 | Inpatient (IN) | payer MEDICARE, MEDICAID, SELFPAY ==
[2023-12-16] VITALS (9 sets, daily range): BP systolic 126–165; BP diastolic 58–79; PULSE 97–116; RESP 18–27; TEMP 36.4–36.8; O2SAT 90–100; BMI 26.4
--- NOTE | 2023-12-16 18:33 | ECG_ITS ---
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 Measurements Intervals [place] Rate: 106 P: 55 DE: 112 QRS: -42 QRSD: 117 T: 64 QT: 349 QTc: 465 Interpretive Statements SINUS TACHYCARDIA WITH SHORT DE INTERVAL POSSIBLE LEFT ATRIAL ENLARGEMENT [-0.1mV P-WAVE IN V1/V2] LEFT AXIS DEVIATION [QRS AXIS < -30] INCOMPLETE RIGHT BUNDLE BRANCH BLOCK [90+ ms QRS DURATION, TERMINAL R IN V1/V2, 40+ ms S IN I/aVL/V4/V5/V6] POSSIBLE LEFT VENTRICULAR HYPERTROPHY [VOLTAGE CRITERIA PLUS LAE OR QRS WIDENING] Compared to ECG 09/25/2023 14:03:06 Short DE interval now present Incomplete right bundle-branch block now present Sinus rhythm no longer present Right bundle-branch block no longer present Electronically Signed On 12-17-2023 0:21:08 CDT by Zarina Pride M.D. [email or web address]
--- NOTE | 2023-12-16 18:35 | ED_ITS ---
HPI - Weakness 2 General: Chief complaint: Weakness Stated complaint: Weakness, Fall Time Seen by Provider: 12/16/23 18:25 Source: EMS Mode of arrival: EMS Limitations: altered mental status History of Present Illness: Patient brought in by EMS. Status post fall. Patient was on the ground for approximately 6 hours. Upon arrival patient is alert to name only and answers all questions with a huh. Review of Systems 2 General: Reports: ROS unobtainable due to mental status PFSH ED 2 PFSH: Medical History Altered mental status Acute hypoxemic respiratory failure Pneumonia Multiple falls Generalized weakness At risk for aspiration Dysphagia Physical deconditioning Neurologic gait disorder Demyelinating disease of central nervous system Restrictive lung disease Postoperative atrial fibrillation Currently on amiodarone. Acute kidney injury Acute respiratory failure with hypoxia Left acute arterial ischemic stroke, MCA (middle cerebral artery) Shortness of breath tPA adm status 24 hr [employer] July 2023 Orthostatic hypotension Tardive dyskinesia DNR (do not resuscitate) Hypercholesterolemia Chronic obstructive pulmonary disease, unspecified Labyrinthitis Backache Bipolar affective disorder Arthropathy, unspecified HTN (hypertension) RLS (restless legs syndrome) Sleep apnea Peripheral vertigo Irritable bowel syndrome Aortic stenosis, severe Surgical History History of nasal surgery Status post aortic valve replacement with bioprosthetic valve History of abdominal hysterectomy H/O foot surgery H/O eye surgery H/O oral surgery Hx of cholecystectomy History of appendectomy Family History Other Hypertension Social History Smoking and tobacco/nicotine status: former use of tobacco/nicotine Quit status (tobacco/nicotine): has quit using Year quit tobacco: 1979 - ciggs x 6 Years Second hand smoke exposure: No Alcohol intake: never Substance/Drug Use: never Caregiver/support person: Yes Lives independently: Yes Household members: none Housing: House Marital status: / Current occupational status: retired and disabled Pets and animals: Yes Pets & animals: dog(s) Do you think of yourself as: Straight/Heterosexual Current gender identity: Female Physical Exam 2 Const: COMMON NORMALS: no acute distress, average body habitus, healthy appearing, alert and well nourished HENMT: COMMON NORMALS: normocephalic, atraumatic, hearing grossly normal bilaterally, external ears normal, Normal external nose present and moist oral mucous membranes HEAD & SCALP: normocephalic and atraumatic NOSE: Normal external nose present EXTERNAL EAR: Yes external ears normal Eye: COMMON NORMALS: Equal, round and reactive pupils present, EOMs intact bilaterally, conjunctivae normal and no scleral icterus CONJUNCTIVA: Yes conjunctivae normal PUPIL: Yes Equal, round and reactive pupils present Neck/C-Spine: COMMON NORMALS: full ROM, no lymphadenopathy, supple, no meningeal signs and no JVD Chest: COMMONS NORMALS: normal inspection of the chest and normal palpation of entire chest wall Resp: COMMON NORMALS: normal respiratory effort, No retractions, No use of accessory muscles and clear to auscultation bilaterally AUSCULTATION: clear to auscultation bilaterally Cardio: COMMON NORMALS: no JVD, regular rate, regular rhythm, S1 normal heart sound present, S2 normal heart sound present, No gallops present (Cardio), No clicks present (Cardio) and No rub (Cardio); negative for No murmurs present (Cardio) (2/6 to 3/6 systolic ejection murmur) RATE: regular rate RHYTHM: regular rhythm HEART SOUNDS: S1 normal heart sound present and S2 normal heart sound present GI: COMMON NORMALS: Normal to inspection, nondistended, normoactive bowel sounds present, Soft to palpation, non-tender, No hepatosplenomegaly present and no masses PALPATION: Yes Soft to palpation and Yes No hepatosplenomegaly present Neuro: SENSORIUM/ORIENTATION: Yes alert MENINGEAL SIGNS: Yes no meningeal signs Course 2 Reevaluation(s): Reevaluation #1: When reevaluated patient is alert and oriented talking and moving all extremities answering questions appropriately but she thinks she is in [place] Vital Signs: Vital signs: Vital Signs Temperature 97.5 F L 12/16/23 18:24 Pulse Rate 98 12/16/23 22:00 Respiratory Rate 20 H 12/16/23 21:33 Blood Pressure 162/79 12/16/23 22:00 Pulse Oximetry 96 12/16/23 22:00 Oxygen Delivery Me thod Nasal Cannula 12/16/23 22:00 Oxygen Flow Rate 2 12/16/23 22:00 MDM - Weakness Medical Decision Making Lab work was obtained as well as head CT and chest x-ray, during this time patient was given 1 L normal saline and became alert and oriented and responsive now able to answer questions no focal neurologic deficits, white blood cell count elevated at 17,000, BUN/creatinine 34 and 1.0, lactic acid 2.7, osmolality 302, bilirubin 1.6 AST 127 ALT 180 alk phos 191 CK4 07 troponin baseline 135, EKGs no ST-T wave changes, these results was discussed with Dr. Bajwa who would like a CTA to rule out PE as well as a renal protocol to rule out stone or mass, UTI is present. Patient had blood cultures obtained and was given 1 g of Rocephin. Will wait till the results of the CT is back to see if she has any obstructive uropathy otherwise we will place her on the floor. Differential Diagnosis Unlikely acute myocardial infarction, anemia, hypoglycemia, hypothyroidism, rhabdomyolysis, sepsis or dehydration Medical Records I reviewed the patient's medical records. Lab Data I reviewed the patient's lab results. 12/16/23 19:32 12/16/23 20:21 Radiology Impressions Chest X-Ray 12/16/23 18:38 IMPRESSION: No acute cardiopulmonary findings. Head CT 12/16/23 18:38 IMPRESSION: 1. No acute intracranial findings. 2. Similar moderate small-vessel ischemic changes of mild cortical volume loss. Abdomen/Pelvis CT 12/16/23 21:18 IMPRESSION: 1. No acute findings within the abdomen/pelvis. 2. Sigmoid diverticulosis without acute diverticulitis. 3. Age indeterminate mild compression deformity along the superior endplate at L5, new from 12/30/2022. 4. Additional ancillary findings as above are similar to prior. Chest CTA 12/16/23 21:18 IMPRESSION: 1. Scattered hypoventilatory changes with areas of air trapping within the lungs bilaterally. Findings can be seen with chronic small airways disease. 2. Moderate cardiomegaly. 3. Status post TAVR. 4. Multivessel coronary artery calcifications. 5. 1.1 cm subsolid nodule in the right upper lobe. Recommend CT Chest at 3-6 months to confirm persistence of the nodule. If unchanged and solid component remains < 6 mm, annual CT Chest should be performed for 5 years. (Reference: Elizabeth) COMMENTS: Consistent with the [place] [employer]'s Incidental Findings Committee white paper (J Am Mitchell Radiol 2015): In patients aged 35 years and older with an incidental thyroid nodule equal to or greater than 1.[address], MRI or extrathyroidal US, further evaluation with dedicated thyroid US is recommended for patients with normal life expectancy and without comorbidities. For smaller nodules without suspicious features, no further evaluation or follow up is recommended. REFERENCES: Elizabeth Chandler et al. Guidelines for Management of Incidental Pulmonary Nodules Detected on CT Images: From the Fleischner Society 2017. Radiology. 2017;284(1):228-243. Laboratory Results WBC 17.08 10^3/uL (3.29-11.43) H 12/16/23 19:32 RBC 4.91 10^6/uL (3.85-5.65) 12/16/23 19:32 Hgb 13.90 g/dL (11.27-16.99) 12/16/23 19:32 Hct 43.7 % (36-47) 12/16/23 19:32 MCV 89.0 fl (85-98) 12/16/23 19:32 MCH 28.3 pg (27-33) 12/16/23 19:32 MCHC 31.8 g/dL (30-55) 12/16/23 19:32 RDW 13.8 % (12.1-15.1) 12/16/23 19:32 Plt Count 95 10^3/cmm (157-399) L 12/16/23 19:32 MPV 11.0 fL (7.4-10.4) H 12/16/23 19:32 Neut % (Auto) 79.8 % 12/16/23 19:32 Lymph % (Auto) 7.9 % 12/16/23 19:32 [place] % (Auto) 10.3 % 12/16/23 19:32 Eos % (Auto) 0.8 % 12/16/23 19:32 Baso % (Auto) 0.4 % 12/16/23 19:32 Neut # (Auto) 13.65 10^3/uL (1.8-7.7) H 12/16/23 19:32 Lymph # (Auto) 1.4 10^3/uL (0.8-4.8) 12/16/23 19:32 [place] # (Auto) 1.8 10^3/uL (0.2-0.9) H 12/16/23 19:32 Eos # (Auto) 0.1 10^3/uL (0.0-0.8) 12/16/23 19:32 Baso # (Auto) 0.1 10^3/uL (0.0-0.1) 12/16/23 19:32 Nucleated RBC % (auto) 0 % 12/16/23 19:32 Nucleated RBCs # 0.0 /100WBC 12/16/23 19:32 PT 13.90 SECONDS (12.1-14.9) 12/16/23 20:21 INR 1.04 (0.8-1.2) 12/16/23 20:21 Sodium 140 mmol/L (136-145) 12/16/23 20:21 Potassium 4.3 mmol/L (3.5-5.1) 12/16/23 20:21 Chloride 100 mmol/L (98-107) 12/16/23 20:21 Carbon Dioxide 25 mmol/L (22-29) 12/16/23 20:21 Anion Gap 19.3 (5-19) H 12/16/23 20:21 BUN 34 mg/dL (8-23) H 12/16/23 20:21 Creatinine 1.0 mg/dL (0.5-0.9) H 12/16/23 20:21 GFR Calculation Not Reportable 12/16/23 20:21 Glucose 171 mg/dL (65-115) H 12/16/23 20:21 Calculated Osmolality 302 mOsm/kg (285-295) H 12/16/23 20:21 Lactic Acid 2.7 mmol/L (0.5-2.2) H 12/16/23 20:21 Calcium 8.8 mg/dL (8.5-10.5) 12/16/23 20:21 Magnesium 2.1 mg/dL (1.7-2.3) 12/16/23 20:21 Total Bilirubin 1.6 mg/dL (0.15-1.2) H 12/16/23 20:21 AST 127 U/L (0-32) H 12/16/23 20:21 ALT 180 U/L (0-33) H 12/16/23 20:21 Alkaline Phosphatase 191 U/L (35-105) H 12/16/23 20:21 Creatine Kinase 407 U/L (26-192) H* 12/16/23 20:21 Troponin T Baseline 135 ng/L (0-10) H* 12/16/23 19:32 Troponin T 120 Minute 135.1 ng/L (0-10) H 12/16/23 21:25 Delta Troponin T 0.1 ABS# (0-10) 12/16/23 21:25 Total Protein 6.1 g/dL (6.6-8.7) L 12/16/23 20:21 Albumin 3.5 g/dL (3.5-5.2) 12/16/23 20: Globulin 2.6 g/dL (1.3-4.6) 12/16/23 20:21 Procalcitonin 1.29 ng/mL (0-0.5) H 12/16/23 20:21 Urine Color Dark yellow (Yellow) A 12/16/23 19:47 Urine Appearance Cloudy (CLEAR) A 12/16/23 19:47 Urine pH 5.5 (5-7) 12/16/23 19:47 Ur Specific [place] 1.020 (1.005-1.030) 12/16/23 19:47 Urine Protein 1+ (Negative) A 12/16/23 19:47 Urine Glucose (UA) Negative (Normal) 12/16/23 19:47 Urine Ketones Trace (Negative) 12/16/23 19:47 Urine Blood Trace (Negative) A 12/16/23 19:47 Urine Nitrate Positive (Negative) A 12/16/23 19:47 Urine Bilirubin 1+ (Negative) H 12/16/23 19:47 Urine Urobilinogen 2.0 mg/dL (Negative) H 12/16/23 19:47 Ur Leukocyte Esterase 1+ (Negative) A 12/16/23 19:47 Urine RBC 0-2 /hpf (0-2) 12/16/23 19:47 Urine WBC 21-50 /hpf (0-5) H 12/16/23 19:47 Ur Squamous Epith Cells 6-10 /hpf (0-5) 12/16/23 19:47 Amorphous Sediment Not Reportable 12/16/23 19:47 Urine Bacteria 4+ /hpf (NONE) H 12/16/23 19:47 Hyaline Casts 25.46 /lpf 12/16/23 19:47 All radiology interpretation(s) finalized by discharge Discharge Plan Discharge Patient Disposition: Admitted As Inpatient Clinical Impression: Dehydration, Elevated troponin Rhabdomyolysis Qualifiers: Rhabdomyolysis type: traumatic Encounter type: initial encounter Qualified Code(s): T79.6XXA - Traumatic ischemia of muscle, initial encounter Urinary tract infection Qualifiers: Urinary tract infection type: acute cystitis Hematuria presence: with hematuria Qualified Code(s): N30.01 - Acute cystitis with hematuria Condition: Stable Coding Level of Care Code ED Off Track Betting Manager for Chg Fwd Related Data Home Medications Medication Instructions Recorded Confirmed acyclovir 800 mg tablet 800 mg PO DAILY 08/27/23 12/10/23 aspirin 81 mg tablet,delayed 81 mg PO QAM 08/27/23 12/10/23 release hydrocodone 5 mg-acetaminophen 325 1 tab PO Q6H PRN Pain 08/27/23 12/10/23 mg tablet omeprazole 40 mg capsule,delayed 40 mg PO QAM 08/27/23 12/10/23 release peg 400-propylene glycol (PF) 0.4 1 drp ophthalmic (eye) QID PRN Dry 08/27/23 12/10/23 %-0.3 % eye drops in a dropperette Eyes (Systane (PF)) tizanidine 4 mg tablet 4 mg PO TID PRN muscle spasms 08/27/23 12/10/23 acetaminophen 325 mg tablet 650 mg PO Q6H PRN Pain 09/16/23 12/10/23 albuterol sulfate 2.5 mg/3 mL 2.5 mg inhalation Q6H PRN 09/16/23 12/10/23 (0.083 %) solution for nebulization Shortness Of Breath amlodipine 10 mg tablet 10 mg PO QAM 09/16/23 12/10/23 atorvastatin 80 mg tablet 80 mg PO QPM 09/16/23 12/10/23 azelastine 137 mcg (0.1 %) nasal 1 spray intranasal BID PRN RHINITIS 09/16/23 12/10/23 spray clopidogrel 75 mg tablet 75 mg PO QAM 09/16/23 12/10/23 fluticasone propionate 50 2 spray intranasal Q12H PRN 09/16/23 12/10/23 mcg/actuation nasal RHINITIS spray,suspension lisinopril 20 mg tablet 20 mg PO QAM 09/16/23 12/10/23 metoprolol succinate 50 mg 50 mg PO QAM 09/16/23 12/10/23 tablet,extended release 24 hr oxybutynin chloride 5 mg tablet 5 mg PO QAM 09/16/23 12/10/23 ropinirole 0.5 mg tablet 0.5 mg PO BID 09/16/23 12/10/23 Previous Rx's Medication Instructions Recorded Orthopedic shoes #1 ea 09/28/23 onabotulinumtoxinA 100 unit 300 unit IM .[id number] #3 ea 11/06/23 solution for injection (Botox) nystatin 100,000 unit/mL oral 5 ml PO Q6H #60 mL 11/11/23 suspension pantoprazole 40 mg tablet,delayed 40 mg PO BID 6 weeks #84 tabs 11/11/23 release (Protonix) Allergies Allergy/AdvReac Type Severity Reaction Status Date / Time No Known Drug Allergies Allergy Unknown Verified 12/10/23 09:04
--- NOTE | 2023-12-16 18:38 | XRR_ITS ---
PROCEDURE INFORMATION: Exam: XR Chest Exam date and time: 12/16/2023 7:52 PM Age: 78 years old Clinical indication: Dyspnea; Additional info: AMS, SOB TECHNIQUE: Imaging protocol: Radiologic exam of the chest. Views: 1 view. COMPARISON: CR XR chest 1V portable [id number] 09/25/2023 12:48 PM FINDINGS: Lungs: Unremarkable. No consolidation. Pleural spaces: Unremarkable. No pleural effusion. No pneumothorax. Heart/Mediastinum: Stable heart size. Vasculature: Atherosclerotic aortic calcifications. Bones/joints: Post median sternotomy and CABG. XR/XR chest 1V portable [id number] IMPRESSION: No acute cardiopulmonary findings.
--- NOTE | 2023-12-16 18:38 | CTR_ITS ---
PROCEDURE INFORMATION: Exam: CT Head Without Contrast Exam date and time: 12/16/2023 6:57 PM Age: 78 years old Clinical indication: Altered mental status/memory loss; Additional info: AMS TECHNIQUE: Imaging protocol: Computed tomography of the head without contrast. Radiation optimization: All CT scans at this facility use at least one of these dose optimization techniques: automated exposure control; mA and/or kV adjustment per patient size (includes targeted exams where dose is matched to clinical indication); or iterative reconstruction. COMPARISON: CT head thrombolytic [id number] 09/25/2023 12:12 PM RADIATION DOSE METRICS: Total DLP (mGy-cm): 1049 FINDINGS: Brain: Unchanged periventricular and subcortical white matter chronic small vessel ischemic changes. Cerebral ventricles: Similar mild generalized cortical volume loss with prominence of the ventricles and cortical sulci. Paranasal sinuses: Visualized sinuses are unremarkable. No fluid levels. Mastoid air cells: Visualized mastoid air cells are well aerated. Orbital cavities: Bilateral lens replacements. Bones: Unremarkable. No acute fracture. Soft tissues: Unremarkable. Vasculature: Vascular calcifications along the carotid siphons. CT/CT head wo con* [id number] IMPRESSION: 1. No acute intracranial findings. 2. Similar moderate small-vessel ischemic changes of mild cortical volume loss.
[2023-12-16 19:47] LABS: Basophils # 0.1 10^3/uL (0.0-0.1); Basophils % 0.4 %; Eosinophils # 0.1 10^3/uL (0.0-0.8); Eosinophils % 0.8 %; Hematocrit 43.7 % (36-47); Lymphocytes # 1.4 10^3/uL (0.8-4.8); Lymphocytes % 7.9 %; Mean Corpuscular HGB Conc 31.8 g/dL (30-55); Mean Corpuscular Hemoglobin 28.3 pg (27-33); Monocytes # 1.8 10^3/uL (0.2-0.9); Monocytes % 10.3 %; Neutrophils # 13.65 10^3/uL (1.8-7.7); Neutrophils % 79.8 %; Nucleated Red Blood Cells % 0 %; Platelet Count 95 10^3/cmm (157-399); Red Blood Count 4.91 10^6/uL (3.85-5.65); Red Cell Distribution Width 13.8 % (12.1-15.1); White Blood Count 17.08 10^3/uL (3.29-11.43)
[2023-12-16 19:50] LABS: Charge for UA Resulting for Rev
[2023-12-16 19:59] LABS: Bilirubin Urine 1+ (Negative); Blood Urine Trace (Negative); Glucose Urine UA Negative (Normal); Ketones Urine Trace (Negative); Leukocyte Esterase Urine 1+ (Negative); Nitrate Urine Positive (Negative); Protein Urine 1+ (Negative); Urine Appearance Cloudy (CLEAR); Urine Color Dark Yellow (Yellow); pH Urine 5.5 (5-7)
[2023-12-16 20:01] LABS: Bacteria Urine 4+ /hpf; Hyaline Casts Urine 25.46 /lpf; RBC Urine 0-2 /hpf (0-2); WBC Urine 21-50 /hpf (0-5)
[2023-12-16 20:23] LABS: Troponin(5th) Baseline 135 ng/L (0-10)
--- NOTE | 2023-12-16 20:25 | PC.NURSE ---
Dr Rosales notified of baseline troponin. No new orders received at this time.
[2023-12-16 20:35] LABS: INR 1.04 (0.8-1.2)
--- NOTE | 2023-12-16 20:39 | ECG_ITS ---
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 Measurements Intervals [place] Rate: 106 P: 38 SC: 108 QRS: -40 QRSD: 121 T: 64 QT: 357 QTc: 475 Interpretive Statements SINUS TACHYCARDIA WITH SHORT SC INTERVAL POSSIBLE LEFT ATRIAL ENLARGEMENT [-0.1mV P-WAVE IN V1/V2] LEFT AXIS DEVIATION [QRS AXIS < -30] RIGHT BUNDLE BRANCH BLOCK [120+ ms QRS DURATION, UPRIGHT V1, 40+ ms S IN I/aVL/V4/V5/V6] POSSIBLE LEFT VENTRICULAR HYPERTROPHY [VOLTAGE CRITERIA PLUS LAE OR QRS WIDENING] Compared to ECG 12/16/2023 18:33:02 Right bundle-branch block now present Incomplete right bundle-branch block no longer present Electronically Signed On 12-17-2023 0:24:49 CDT by Zarina Pried M.D. [id number]
--- NOTE | 2023-12-16 20:40 | PC.NURSE ---
Patient A&Ox3, stated that she was in [place] but responded appropriately to all other orientation questions. Patient was readjusted in bed and placed in clean patient gown.
[2023-12-16 20:43] LABS: Alanine Aminotransferase 180 U/L (0-33); Albumin Level 3.5 g/dL (3.5-5.2); Alkaline Phosphatase 191 U/L (35-105); Anion Gap 19.3 (5-19); Aspartate Amino Transferase 127 U/L (0-32); Blood Urea Nitrogen 34 mg/dL (8-23); Calcium 8.8 mg/dL (8.5-10.5); Carbon Dioxide 25 mmol/L (22-29); Chloride 100 mmol/L (98-107); Globulin 2.6 g/dL (1.3-4.6); Glucose 171 mg/dL (65-115); Lactic Sepsis W/Reflex 2.7 mmol/L (0.5-2.2); Magnesium 2.1 mg/dL (1.7-2.3); Osmolality Calculated 302 mOsm/kg (285-295); Potassium 4.3 mmol/L (3.5-5.1); Sodium 140 mmol/L (136-145); Total Bilirubin 1.6 mg/dL (0.15-1.2); Total Protein 6.1 g/dL (6.6-8.7)
[2023-12-16 20:44] LABS: Creatine Phosphokinase 407 U/L (26-192)
[2023-12-16 20:44] LABS: UA Slide Review UA Slide Review Perf
[2023-12-16 20:45] LABS: Add Urine Culture? Yes
[2023-12-16 20:50] LABS: Procalcitonin 1.29 ng/mL (0-0.5)
--- NOTE | 2023-12-16 21:18 | CTR_ITS ---
PROCEDURE INFORMATION: Exam: CT Abdomen And Pelvis Without Contrast Exam date and time: 12/16/2023 9:38 PM Age: 78 years old Clinical indication: Other: UTI; Additional info: Leukocytosis, tachycardic, UTI, TECHNIQUE: Imaging protocol: Computed tomography of the abdomen and pelvis without contrast. Radiation optimization: All CT scans at this facility use at least one of these dose optimization techniques: automated exposure control; mA and/or kV adjustment per patient size (includes targeted exams where dose is matched to clinical indication); or iterative reconstruction. COMPARISON: CT abdomen pelvis wo con [id number] 01/19/2023 9:34 PM RADIATION DOSE METRICS: Total DLP (mGy-cm): 589 FINDINGS: Lungs: Bibasilar atelectasis. Heart: Partially visualized TAVR. Mitral annular calcifications. Moderate cardiomegaly. Liver: Normal. No mass. Gallbladder and biliary ducts: Status post cholecystectomy. Stable mild dilatation of the common bile duct, likely from prior cholecystectomy changes. Pancreas: Stable diffuse pancreatic atrophy. No ductal dilatation. Spleen: Normal. No splenomegaly. Adrenal glands: Normal. No mass. Kidneys and ureters: Normal. No hydronephrosis. Stomach and bowel: Sigmoid diverticulosis. Appendix: The appendix is not clearly visualized, but there are no signs of acute appendicitis. Intraperitoneal space: Unremarkable. No free air. No significant fluid collection. Vasculature: Moderate atherosclerotic calcifications of the abdominal aorta. Lymph nodes: Unremarkable. No enlarged lymph nodes. Urinary bladder: Unremarkable as visualized. Reproductive: Status post hysterectomy. Bones/joints: Age indeterminate mild superior endplate compression deformity at L5 is new from 01/19/2023. Degenerative changes of the lumbar spine. Soft tissues: Small fat containing bilateral inguinal hernias. CT/CT kidney stone [id number] IMPRESSION: 1. No acute findings within the abdomen/pelvis. 2. Sigmoid diverticulosis without acute diverticulitis. 3. Age indeterminate mild compression deformity along the superior endplate at L5, new from 12/30/2022. 4. Additional ancillary findings as above are similar to prior.
--- NOTE | 2023-12-16 21:18 | CTR_ITS ---
PROCEDURE INFORMATION: Exam: CTA Chest With Contrast Exam date and time: 12/16/2023 9:41 PM Age: 78 years old Clinical indication: Shortness of breath; Additional info: Tachycardic, hypoxic, AMS, TECHNIQUE: Imaging protocol: Computed tomographic angiography of the chest with contrast. Exam focused on the arteries. 3D rendering (Not supervised by radiologist): MIP and/or 3D reconstructed images were created by the technologist. Radiation optimization: All CT scans at this facility use at least one of these dose optimization techniques: automated exposure control; mA and/or kV adjustment per patient size (includes targeted exams where dose is matched to clinical indication); or iterative reconstruction. Contrast material: OMNI 350; Contrast volume: 90 ml; Contrast route: INTRAVENOUS (IV); COMPARISON: CR (CHEST, ) 12/16/2023 7:52 PM RADIATION DOSE METRICS: Total DLP (mGy-cm): 319 FINDINGS: Pulmonary arteries: Normal. No pulmonary emboli. Aorta: Extensive atherosclerotic calcifications of the thoracic aorta. The aorta is nonaneurysmal. Thyroid: In small thyroid hypodense nodules and calcifications are of doubtful clinical significance. Lungs: Scattered hypoventilatory changes throughout the lungs bilaterally. No focal consolidation. 1.1 cm subsolid nodule in the right upper lobe on series 4, image 17. Mild diffuse mosaic attenuation with areas of air trapping. Calcified granulomas in the lower lobes bilaterally. Pleural spaces: Unremarkable. No pneumothorax. No pleural effusion. Heart: Moderate cardiomegaly. Status post TAVR. Mitral annular calcifications. Coronary arteries: Multivessel coronary artery calcifications. Lymph nodes: Calcified mediastinal and left hilar lymph nodes. Bones/joints: Post median sternotomy. Multilevel degenerative changes of the thoracic spine. Diffuse osseous demineralization. Soft tissues: Unremarkable. CT/CT angio chest PE protcl [id number] IMPRESSION: 1. Scattered hypoventilatory changes with areas of air trapping within the lungs bilaterally. Findings can be seen with chronic small airways disease. 2. Moderate cardiomegaly. 3. Status post TAVR. 4. Multivessel coronary artery calcifications. 5. 1.1 cm subsolid nodule in the right upper lobe. Recommend CT Chest at 3-6 months to confirm persistence of the nodule. If unchanged and solid component remains < 6 mm, annual CT Chest should be performed for 5 years. (Reference: [place]) COMMENTS: Consistent with the [place] [employer]'s Incidental Findings Committee white paper (J Am Mitchell Radiol 2015): In patients aged 35 years and older with an incidental thyroid nodule equal to or greater than 1.[address], MRI or extrathyroidal US, further evaluation with dedicated thyroid US is recommended for patients with normal life expectancy and without comorbidities. For smaller nodules without suspicious features, no further evaluation or follow up is recommended. REFERENCES: Elizabeth Chandler, et al. Guidelines for Management of Incidental Pulmonary Nodules Detected on CT Images: From the Fleischner Society 2017. Radiology. 2017;284(1):228-243.
[2023-12-16] MEDS: iohexol 350 mg/mL 500 mL Btl (per mL) IV (21:41)
[2023-12-16 21:56] LABS: Troponin 5 2HR Delta 0.1 ABS# (0-10)
[2023-12-16 21:57] LABS: Troponin 5 2HR 135.1 ng/L (0-10)
[2023-12-16] MEDS: cefTRIAXone 1,000 mg SDV 1000 MG IVP (22:02)
[2023-12-16 22:11] LABS: Reflex Lactate Order REFLEX LACTIC ORDERD
--- NOTE | 2023-12-16 22:41 | P.HP_ITS ---
Providers/Chief Complaint 2 Chief Complaint: Weakness, Fall History of Present Illness Pleasant 78-year-old lady with history of tardive dyskinesia, neurologic gait disorder, history of unresponsive episodes, unclear etiology, in the past received tPA, although without evidence of CVA, does have carotid atherosclerotic disease, following with neurology, normally walks with a walker, also with history of orthostatic hypotensive episodes, history of aortic stenosis, with bioprosthetic valve with moderate stenosis back in June 2022, moderate LVH, as well as history of hypertension, INOCENTE, RLS, other medical problems. She was found down at home for close to 6 hours with unclear circumstances how she found herself on the floor. Initially with altered mental status and answering all questions with a huh . Currently she is awake and alert, with tardive dyskinesia, intermittent gaze to the left and above, but no gaze fixation, she is able to track horizontally and no issues with seeing me in the right lower [id number]. She does not have much recollection from today. She does remember going to the dentist on Thursday for adjustment of her lower dentures and did not take her medications for all of the day. She denies any new medications being started recently. She states that she had a fall on Thursday morning and at which point she scraped the left forearm and fell onto the TV/stand with some residual pain in her coccyx and lower back. She states that she deals with falls quite frequently. She normally uses a walker. In ER she is found tachycardic low 100s, WBC 17, platelets 95. Creatinine 1, BUN 34. Lactate 2.7. T. bili 1.6, AST 127, ALT 180, alk phos 191. CK4 07. Baseline troponin 135. Procalcitonin 1.29. UA with 21-50 WBC positive nitrate. 4+ bacteria. Dark yellow and cloudy. Chest x-ray without acute findings. Head CT similar to prior with small vessel ischemic changes and mild cortical volume loss. Review of Systems 2 Const: Denies: fever(s), chills, body aches or malaise ENMT: Denies: throat pain Card: Denies: chest pain, edema, pre-syncope or dyspnea on exertion Resp: Denies: dyspnea, productive cough, change in phlegm color or hemoptysis GI: Denies: abdominal pain, nausea, vomiting, diarrhea, constipation, hematochezia or melena : Denies: flank pain, urinary frequency or hematuria Musc: Reports: back pain; Denies: joint swelling or joint redness Skin/Breast: Denies: rash or new lesions Neuro: Reports: headache(s) (Mild) and confusion; Denies: dizziness Medications/Allergies Home Medications Medication Instructions Recorded Confirmed Last Taken Type acyclovir 800 mg tablet 800 mg PO DAILY 08/27/23 12/10/23 09/16/23 History aspirin 81 mg tablet,delayed 81 mg PO QAM 08/27/23 12/10/23 09/16/23 History release hydrocodone 5 mg-acetaminophen 325 1 tab PO Q6H PRN Pain 08/27/23 12/10/23 09/16/23 History mg tablet omeprazole 40 mg capsule,delayed 40 mg PO QAM 08/27/23 12/10/23 09/16/23 History release peg 400-propylene glycol (PF) 0.4 1 drp ophthalmic (eye) QID PRN Dry 08/27/23 12/10/23 09/03/23 History %-0.3 % eye drops in a dropperette Eyes (Systane (PF)) tizanidine 4 mg tablet 4 mg PO TID PRN muscle spasms 08/27/23 12/10/23 09/25/23 History acetaminophen 325 mg tablet 650 mg PO Q6H PRN Pain 09/16/23 12/10/23 Unknown History albuterol sulfate 2.5 mg/3 mL 2.5 mg inhalation Q6H PRN 09/16/23 12/10/23 Unknown History (0.083 %) solution for nebulization Shortness Of Breath amlodipine 10 mg tablet 10 mg PO QAM 09/16/23 12/10/23 Unknown History atorvastatin 80 mg tablet 80 mg PO QPM 09/16/23 12/10/23 09/16/23 History azelastine 137 mcg (0.1 %) nasal 1 spray intranasal BID PRN RHINITIS 09/16/23 12/10/23 Unknown History spray clopidogrel 75 mg tablet 75 mg PO QAM 09/16/23 12/10/23 09/16/23 History fluticasone propionate 50 2 spray intranasal Q12H PRN 09/16/23 12/10/23 Unknown History mcg/actuation nasal RHINITIS spray,suspension lisinopril 20 mg tablet 20 mg PO QAM 09/16/23 12/10/23 09/16/23 History metoprolol succinate 50 mg 50 mg PO QAM 09/16/23 12/10/23 09/16/23 History tablet,extended release 24 hr oxybutynin chloride 5 mg tablet 5 mg PO QAM 09/16/23 12/10/23 09/16/23 History ropinirole 0.5 mg tablet 0.5 mg PO BID 09/16/23 12/10/23 09/16/23 History Orthopedic shoes #1 ea 09/28/23 12/10/23 Unknown Rx onabotulinumtoxinA 100 unit 300 unit IM .[id number] #3 ea 11/06/23 12/10/23 Unknown Rx solution for injection (Botox) nystatin 100,000 unit/mL oral 5 ml PO Q6H #60 mL 11/11/23 12/10/23 Unknown Rx suspension pantoprazole 40 mg tablet,delayed 40 mg PO BID 6 weeks #84 tabs 11/11/23 12/10/23 Unknown Rx release (Protonix) Allergies Allergy/AdvReac Type Severity Reaction Status Date / Time No Known Drug Allergies Allergy Unknown Verified 12/10/23 09:04 PFSH Acute 2 PFSH: Medical History Altered mental status Acute hypoxemic respiratory failure Pneumonia Multiple falls Generalized weakness At risk for aspiration Dysphagia Physical deconditioning Neurologic gait disorder Demyelinating disease of central nervous system Restrictive lung disease Postoperative atrial fibrillation Currently on amiodarone. Acute kidney injury Acute respiratory failure with hypoxia Left acute arterial ischemic stroke, MCA (middle cerebral artery) Shortness of breath tPA adm status 24 hr CIR[facility] July 2023 Orthostatic hypotension Tardive dyskinesia DNR (do not resuscitate) Hypercholesterolemia Chronic obstructive pulmonary disease, unspecified Labyrinthitis Backache Bipolar affective disorder Arthropathy, unspecified HTN (hypertension) RLS (restless legs syndrome) Sleep apnea Peripheral vertigo Irritable bowel syndrome Aortic stenosis, severe Surgical History History of nasal surgery Status post aortic valve replacement with bioprosthetic valve History of abdominal hysterectomy H/O foot surgery H/O eye surgery H/O oral surgery Hx of cholecystectomy History of appendectomy Family History Other Hypertension Social History Smoking and tobacco/nicotine status: former use of tobacco/nicotine Quit status (tobacco/nicotine): has quit using Year quit tobacco: 1979 - ciggs x 6 Years Second hand smoke exposure: No Alcohol intake: never Substance/Drug Use: never Caregiver/support person: Yes Lives independently: Yes Household members: none Housing: House Marital status: / Current occupational status: retired and disabled Pets and animals: Yes Pets & animals: dog(s) Do you think of yourself as: Straight/Heterosexual Current gender identity: Female Vitals/I&O/Wt Last Vital Signs Temp 97.5 F L 12/16/23 18:24 Pulse 98 12/16/23 22:00 Resp 20 H 12/16/23 21:33 BP 162/79 12/16/23 22:00 Pulse Ox 96 12/16/23 22:00 O2 Del Method Nasal Cannula 12/16/23 22:00 O2 Flow Rate 2 12/16/23 22:00 Physical Exam 2 Const: COMMON NORMALS: patient oriented x3 and alert GENERAL APPEARANCE: c ooperative ORIENTATION/CONSCIOUSNESS: Yes awake OTHER: Tardive dyskinesia HENMT: COMMON NORMALS: oropharynx normal Neck/C-Spine: COMMON NORMALS: no JVD Resp: COMMON NORMALS: normal respiratory effort and clear to auscultation bilaterally AUSCULTATION: clear to auscultation bilaterally Cardio: COMMON NORMALS: no JVD, regular rhythm, S1 normal heart sound present, S2 normal heart sound present and No murmurs present (Cardio) RHYTHM: regular rhythm HEART SOUNDS: S1 normal heart sound present and S2 normal heart sound present GI: COMMON NORMALS: Normal to inspection, nondistended, normoactive bowel sounds present, Soft to palpation and non-tender PALPATION: Yes Soft to palpation Extremity: COMMON NORMALS: no joint enlargement and no pedal edema OTHER: Skin tear left forearm. Neuro: COMMON NORMALS: patient oriented x3 and moves all extremities S ENSORIUM/ORIENTATION: Yes alert OTHER: She is awake and alert, she is not following directions, I do not see any obvious facial droop. No difficulty with horizontal tracking. Minimally slowed but no difficulties with FNF. Visual [place] are intact to confrontation. No visual extinction. No upper extremity drift. Lower extremity exam difficult due to radiculopathy, she states sciatica bilaterally. Sensory exam symmetrical bilaterally. No sensory extinction. Skin: GENERAL SKIN EXAM: ecchymosis Data 12/16/23 19:32 12/16/23 20:21 Micro: Microbiology 12/16/23 21:28 Blood Culture - Preliminary Blood SPECIMEN COLLECTED 12/16/23 21:25 Blood Culture - Preliminary Blood SPECIMEN COLLECTED A&P Assessment and plan (1) Acute encephalopathy: Acute encephalopathy, found with altered mental status at home responding only with huh, unclear if loss of consciousness may have been the initial trigger in addition to encephalopathy. With history of unresponsive episodes of unclear etiology, at 1 point received TNK for possibility of CVA in the past, although subsequent imaging without changes suggestive of CVA. Does have carotid atherosclerotic disease. Reviewed vitals, CBC, INR, CMP, lactic acid, museum, CK, troponin, procalcitonin, UA, EKG on my interpretation with sinus tachycardia, incomplete right bundle branch block, LVH, without suggestion of acute [place], pending official read. Reviewed chest x-ray, head, abdomen pelvis CT and chest CTA, ER note, discussed with ER provider. At the moment does not have a focal abnormality to suggest CVA. Studies with suggestion of urinary tract infection, possible cause of her encephalopathy, she does not seem to recall much from today morning. Did not take any of her medications yesterday due to a dentist visit to adjust her dentures. She does have tardive dyskinesia, noted some intermittent gazes into left upper visual field, but no difficulties with tracking or FNF. Not sure if this may be related to her tardive dyskinesia. Head CT without acute abnormality. She has had multiple prior brain imaging. Most recently in August without acute abnormality. Head and neck CTA with vasculopathy with 50 to 69% of both internal carotid arteries among other findings including 50-69% stenosis of proximal right subclavian artery. 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 Additionally to urinary tract infection also with polypharmacy, history of recurrent falls, would avoid and discontinue oxybutynin, tizanidine, and any other medications that could be discontinued due to possibly contributing. Additionally with dehydration, also with cholestasis, further investigation as below. Without abdominal tenderness. Abdomen pelvis CT with status post cholecystectomy, stable mild CBD dilation likely from cholecystectomy. But also with new transaminitis, possibly sec to rhabdomyolysis, but will also check COVID PCR viral panel. Last echocardiogram over a year ago with moderate aortic stenosis, will repeat study to reassess. Obtain orthostatics with history of orthostatic hypotension episodes. With recurrent falls, currently also with EMS, she used to use her cell phone to call for help, however, with confusion may not be able to do so. Case management consultation. PT assessment. Consideration of rehabilitation. May benefit from medic alert button to call for help more easily. (2) Urinary tract infection: Reviewed prior urine cultures, received ceftriaxone, continue ceftriaxone.With noted leukocytosis 17, sinus tachycardia. Lactic acid 2.7. But is also dehydrated. Does not appear to be currently in sepsis. However, continue antibiotic. Follow-up urine culture. Blood culture has been obtained as well. Saturation on the lower side low 90s, was started on oxygen in ER on [address] angiogram obtained, without PE. Qualifiers: Hematuria presence: with hematuria Urinary tract infection type: acute cystitis Qualified Code(s): N30.01 - Acute cystitis with hematuria (3) Dehydration: Continue rehydration with LR. Monitor for risk of fluid overload. With sinus tachycardia, leukocytosis, cholestasis. Reassess vitals, CMP. CBC. No PE on CTA. Noted scattered hypoventilatory changes in the area of air trapping within the lungs bilaterally. Possibly from being on the floor. Versus chronic small airway disease. Add incentive spirometer. Noted BUN 34, creatinine 1. Recheck levels. (4) Elevated troponin: Reviewed troponin, EKG as above, baseline troponin 135, 2-hour troponin reviewed as well, unchanged. She is free of chest pain. Does have additionally dehydration, with sinus tachycardia, with UTI, additional problems as above. Suspect type II NSTEMI, demand ischemia, however, monitor on telemetry, complete troponin series. Obtain TTE. She does have vasculopathy including carotid artery disease, subclavian disease, at risk of coronary disease. Had coronary angiography back in 2019 with noted mild coronary disease with one-vessel disease preceding aortic valve surgery. May benefit from follow-up with stress testing. Continue optimization of cardiovascular risk factors. Requesting home medications to be confirmed. Continue aspirin, hold statin with transaminitis. Continue metoprolol. (5) Rhabdomyolysis: Mild rhabdomyolysis. Follow-up CK. Monitor renal function. With dehydration, gentle IV hydration. Hold statin for now. Qualifiers: Encounter type: initial encounter Rhabdomyolysis type: traumatic Qualified Code(s): T79.6XXA - Traumatic ischemia of muscle, initial encounter (6) Compression fracture of L5 vertebra: Appears to have sustained new L5 compression fracture of superior endplate, likely after fall on Thursday. Acetaminophen as needed. Lidocaine patch. PT assessment. Follow-up for further reassessment and management of recurrent falls, likely osteoporosis. (7) Recurrent falls: Normally walks with a walker, also with history of orthostatic hypotensive episodes. Check orthostatics. Continue follow-up with regards to aortic stenosis. With polypharmacy. Wound avoid and discontinue oxybutynin, tizanidine at discharge, or any other nonessential medications that may contribute to falls. PT assessment. Additionally with neurologic gait disorder, follow-up with neurology. (8) Cholestasis: New cholestasis noted on chemistry, T. bili 1.6, alk phos 191. New findings. Also with mild to moderate transaminitis. History of cholecystectomy. Mild dilation of CBD. Will further assess with hepatobiliary ultrasound. Suspect cholestasis may be secondary to dehydration. Continue gentle hydration with LR, monitor for risk of fluid overload with IV fluid. Reassess chemistry. Does have platelet thrombocytopenia: Platelets 95. Although albumin is low normal at 3.5. INR is normal 1.04. Reassess trend of liver parameters. (9) Transaminitis: Possibly secondary to rhabdomyolysis, CK4 07. Follow-up CK level. Follow-up CMP. Hold statin for now. Hepatobiliary ultrasound as above. Noted low normal albumin, low platelets 99. (10) Leukocytosis: Leukocytosis, possibly secondary to UTI, dehydration, stress. Antibiotic as above. Reassess blood counts. (11) Skin lesion of right arm: Skin tear of left forearm. Continue wound care. (12) Lung nodule seen on imaging study: Incidentally seen lung nodule on CTA. Needs to follow-up with primary provider for further assessment. 1.1 cm subsolid nodule in the right upper lobe. Recommend CT Chest at 3-6 months to confirm persistence of the nodule. If unchanged and solid component remains < 6 mm, annual CT Chest should be performed for 5 years. (13) Goals of care, counseling/discussion: In terms of goals of care discussion case of cardiopulmonary arrest she states would not want CPR, but in case of isolated respiratory issue would be okay with intubation and temporary mechanical ventilatory support assuming a reversible problem. 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 Hold statin for now. History of aortic stenosis, with bioprosthetic valve with moderate stenosis back in June 2022, Moderate LVH, Hypertension, INOCENTE, RLS, Other medical problems Requesting home medications to be confirmed, please review once available. Attestations 2 Medical Necessity Statement*: Admission of over 2 midnights anticipated for assessment management of acute encephalopathy, found down with dehydration, rhabdomyolysis 46 hours, unclear initial trigger, possibly encephalopathy versus loss of consciousness, with history of episodes of unresponsiveness without a very clear etiology with additional comorbidities as above including history of aortic stenosis, vasculopathy, orthostasis, with also elevated troponin, cholestasis, additional medical problems as above. At risk of deterioration in condition, further fall and injury, unresponsive episode, coma, , etc. and High Time for a total of 85 minutes, includes reviewing past or interval history, examining/interviewing patient, placing orders, counseling patient/family/other support, communicating with other healthcare providers, documenting encounter and coordinating care Diagnoses Acute encephalopathy G93.40 Urinary tract infection N30.01 Hematuria presence: with hematuria Urinary tract infection type: acute cystitis Dehydration E86.0 Elevated troponin R79.89 Rhabdomyolysis T79.6XXA Encounter type: initial encounter Rhabdomyolysis type: traumatic Compression fracture of L5 vertebra S32.050A Recurrent falls R29.6 Cholestasis K83.1 Transaminitis R74.0 Leukocytosis D72.829 Skin lesion of right arm L98.9 Lung nodule seen on imaging study R91.1 Goals of care, counseling/discussion Z71.89
[2023-12-17] VITALS (11 sets, daily range): BP systolic 126–188; BP diastolic 68–84; PULSE 83–114; RESP 16–18; TEMP 36.4–37.3; O2SAT 94–100
[2023-12-17 00:21] LABS: Lactic Acid level (Lactate) 1.8 mmol/L (0.5-2.2)
--- NOTE | 2023-12-17 01:24 | ECG_ITS ---
[facility] Test Date: 2023-12-17 Pat Name: Imer Brasher Department: Room: 253 Gender: Female Senior Administrative Associate: : 1945 Requested By: Gage Rosales Order Number: [id number] Gregory MD: Caesar Robertson M.D. Measurements Intervals [place] Rate: 98 P: 47 KS: 132 QRS: -40 QRSD: 117 T: 58 QT: 373 QTc: 477 Interpretive Statements SINUS RHYTHM WITH SINUS ARRHYTHMIA LEFT AXIS DEVIATION [QRS AXIS < -30] PATTERN CONSISTENT WITH PULMONARY DISEASE INCOMPLETE RIGHT BUNDLE BRANCH BLOCK [90+ ms QRS DURATION, TERMINAL R IN V1/V2, 40+ ms S IN I/aVL/V4/V5/V6] VOLTAGE CRITERIA FOR LVH [MEETS CRITERIA IN ONE OF: R(aVL), S(V1), R(V5), R(V5/V6)+S(V1)] Compared to ECG 12/16/2023 20:44:41 Incomplete right bundle-branch block now present Sinus tachycardia no longer present Short [place] interval no longer present Right bundle-branch block no longer present Electronically Signed On 12-17-2023 8:04:38 CDT by Caesar Robertson M.D. [id number]
[2023-12-17] MEDS: lactated ringers 1,000 ML 75 ML IV ×2 (01:38→23:00)
[2023-12-17 02:04] LABS: Adenovirus Not Detected (NOT DETECT); Chlamydia Pneumoniae Not Detected (NOT DETECT); Coronavirus 229E,HKU1,NL63,OC4 Not Detected (NOT DETECT); Human Metapneumovirus Not Detected (NOT DETECT); Human Rhinovirus/Enterovirus Not Detected (NOT DETECT); Influenza A Not Detected (NOT DETECT); Influenza A H1 Not Detected (NOT DETECT); Influenza A H1-2009 Not Detected (NOT DETECT); Influenza A H3 Not Detected (NOT DETECT); Influenza B Not Detected (NOT DETECT); Mycoplasma Pneumoniae Not Detected (NOT DETECT); Parainfluenza Virus Type 1 Not Detected (NOT DETECT); Parainfluenza Virus Type 2 Not Detected (NOT DETECT); Parainfluenza Virus Type 3 Not Detected (NOT DETECT); Parainfluenza Virus Type 4 Not Detected (NOT DETECT); Respiratory Syncytial Virus A Not Detected (NOT DETECT); Respiratory Syncytial Virus B Not Detected (NOT DETECT); SARS-COV-2 Not Detected (NOT DETECT)
[2023-12-17 02:42] LABS: Basophils # 0.1 10^3/uL (0.0-0.1); Basophils % 0.5 %; Eosinophils # 0.2 10^3/uL (0.0-0.8); Eosinophils % 1.6 %; Hematocrit 44.4 % (36-47); Lymphocytes # 1.1 10^3/uL (0.8-4.8); Lymphocytes % 8.6 %; Mean Corpuscular HGB Conc 31.3 g/dL (30-55); Mean Corpuscular Hemoglobin 28.7 pg (27-33); Mean Corpuscular Volume 91.5 fl (85-98); Mean Platelet Volume 10.7 fL (7.4-10.4); Monocytes # 1.2 10^3/uL (0.2-0.9); Monocytes % 9.1 %; Neutrophils # 10.44 10^3/uL (1.8-7.7); Neutrophils % 79.7 %; Nucleated Red Blood Cells % 0 %; Platelet Count 93 10^3/cmm (157-399); Red Blood Count 4.85 10^6/uL (3.85-5.65); Red Cell Distribution Width 13.9 % (12.1-15.1); White Blood Count 13.08 10^3/uL (3.29-11.43)
[2023-12-17 03:03] LABS: Chloride 101 mmol/L (98-107); Creatinine Clr Calc Pharmacy 49.0742
[2023-12-17 03:17] LABS: Troponin 5 6HR 99.59 ng/L (0-10); Troponin 5 6HR Delta -35.41 ng/L (0-12)
[2023-12-17 03:19] LABS: Creatine Phosphokinase 620 U/L (26-192)
[2023-12-17 03:25] LABS: Alanine Aminotransferase 156 U/L (0-33); Alkaline Phosphatase 177 U/L (35-105); Blood Urea Nitrogen 31 mg/dL (8-23); Calcium 8.3 mg/dL (8.5-10.5); Glucose 164 mg/dL (65-115); Osmolality Calculated 298 mOsm/kg (285-295); Total Bilirubin 1.3 mg/dL (0.15-1.2); Total Protein 5.9 g/dL (6.6-8.7)
[2023-12-17 03:26] LABS: Albumin Level 3.3 g/dL (3.5-5.2); Anion Gap 20.3 (5-19); Aspartate Amino Transferase 112 U/L (0-32); Carbon Dioxide 22 mmol/L (22-29); Globulin 2.6 g/dL (1.3-4.6); Potassium 4.3 mmol/L (3.5-5.1); Sodium 139 mmol/L (136-145)
--- NOTE | 2023-12-17 08:41 | PC.PHAR ---
pt gets her medications from [facility]. Pt currently takes Omeprazole 40mg and Pantoprazole 40mg currently. Pt states wants her name changed on her med chart to (Hope).
[2023-12-17] MEDS: metoprolol succinate ER (24 HR) 50 mg Tablet PO ×2 (09:22→13:51)
[2023-12-17] MEDS: acetaminophen 325 mg Tablet 650 MG PO (09:22)
[2023-12-17] MEDS: aspirin 81 mg EC Tablet PO (09:22)
--- NOTE | 2023-12-17 12:31 | P.PN_ITS ---
Subjective 2 Subjective: - Patient was seen this morning -She is alert oriented x 3, following al l commands -No focal weakness, has equal strength b ilateral upper and lower extremities -Currently displaying features of tardiv e dyskinesia, has a gaze upward into the left, she tells me that she is chronically like this -She does not know how she ended up on t he floor -She lives at home by herself, -Denies any flank pain, no fevers, no ch ills -Denies any abdominal pain Vitals/I&O/Wt Last Vital Signs Temp 99.1 F 12/17/23 08:00 Pulse 114 H 12/17/23 08:25 Resp 18 12/17/23 08:00 BP 159/76 12/17/23 08:00 Pulse Ox 97 12/17/23 08:25 O2 Del Method Nasal Cannula 12/17/23 08:25 O2 Flow Rate 2 12/17/23 08:25 12/16/23 12/17/23 12/17/23 22:59 06:59 14:59 Intake Total 240 / 240 240 / 240 Output Total 200 / 200 Balance 40 / 40 240 / 240 Weight last 48 hrs Weight 67.132 kg Weight 67.54 kg Physical Exam 2 Const: COMMON NORMALS: no acute distress OTHER: Peoples equal round reactive to light, gaze is upward into the left, but can track Resp: COMMON NORMALS: normal respiratory effort, No retractions, No use of accessory muscles and clear to auscultation bilaterally AUSCULTATION: clear to auscultation bilaterally Cardio: COMMON NORMALS: regular rate, regular rhythm, S1 normal heart sound present and S2 normal heart sound present RATE: regular rate RHYTHM: r egular rhythm HEART SOUNDS: S1 normal heart sound present and S2 normal heart sound present GI: COMMON NORMALS: Normal to inspection, nondistended, normoactive bowel sounds present and non-tender Extremity: COMMON NORMALS: no pedal edema Psych: COMMON NORMALS: mental status grossly normal Data 12/17/23 02:33 12/17/23 02:33 Micro: Microbiology 12/16/23 21:28 Blood Culture - Preliminary Blood SPECIMEN COLLECTED 12/16/23 21:25 Blood Culture - Preliminary Blood SPECIMEN COLLECTED A&P Assessment and plan (1) Acute encephalopathy: -Neurochecks, NIH stroke scale -Does have a UTI -She does have tardive dyskinesia, noted some intermittent gazes into left upper visual field, but no difficulties with tracking - Head CT without acute abnormality. - Head and neck CTA with vasculopathy with 50 to 69% of both internal carotid arteries among other findings including 50-69% stenosis of proximal right subclavian artery. 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 Will have her follow-up with vascular surgery as outpatient -PT OT (2) Urinary tract infection: -continue rocephin Qualifiers: Hematuria presence: with hematuria Urinary tract infection type: acute cystitis Qualified Code(s): N30.01 - Acute cystitis with hematuria (3) Dehydration: _IV fluids (4) Elevated troponin: - Baseline troponin 135 ? 6-hour troponin nine 9.59 ? EKG no acute ST-T wave changes ? No chest pain complaints ? Continue aspirin ? Hold off on statin given rhabdomyo lysis ?CONCLUSIONS LV systolic function is normal with EF of 60-65% Moderate to severe left ventricular hypertrophy Grade 1 diastolic dysfunction Moderate mitral stenosis. Moderate bioprosthetic aortic valve stenosis Mild to moderate tricuspid regurgitation Moderate pulmonary hypertension. Compared to prior echocardiogram from 2022, gradients across aortic valve have increased and patient has moderate stenosis of mitral valve. (5) Rhabdomyolysis: Continue IV fluids Qualifiers: Encounter type: initial encounter Rhabdomyolysis type: traumatic Qualified Code(s): T79.6XXA - Traumatic ischemia of muscle, initial encounter (6) Compression fracture of L5 vertebra: Appears to have sustained new L5 compression fracture of superior endplate, likely after fall on Thursday. Acetaminophen as needed. Lidocaine patch. PT assessment. Follow-up for further reassessment and management of recurrent falls, likely osteoporosis. (7) Recurrent falls: -Does have moderate bioprosthetic valve aortic stenosis, will need to be monitored as outpatient With polypharmacy. Wound avoid and discontinue oxybutynin, tizanidine at discharge, or any other nonessential medications that may contribute to falls. PT assessment. Additionally with neurologic gait disorder, follow-up with neurology. (8) Cholestasis: - Monitor (9) Transaminitis: - Monitor (10) Leukocytosis: Leukocytosis, possibly secondary to UTI, dehydration, stress. Antibiotic as above. Reassess blood counts. (11) Skin lesion of right arm: Skin tear of left forearm. Continue wound care. (12) Lung nodule seen on imaging study: Incidentally seen lung nodule on CTA. Needs to follow-up with primary provider for further assessment. 1.1 cm subsolid nodule in the right upper lobe. Recommend CT Chest at 3-6 months to confirm persistence of the nodule. If unchanged and solid component remains < 6 mm, annual CT Chest should be performed for 5 years. (13) Goals of care, counseling/discussion: In terms of goals of care discussion case of cardiopulmonary arrest she states would not want CPR, but in case of isolated respiratory issue would be okay with intubation and temporary mechanical ventilatory support assuming a reversible problem. 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 Hold statin for now. History of aortic stenosis, with bioprosthetic valve with moderate stenosis back in June 2022, Moderate LVH, Hypertension, INOCENTE, RLS, Other medical problems Attestations 2 Medical Necessity Statement*: Patient requires hospitalization for UTI Coding Level of Care Code Acute Code for Chg Fwd Diagnoses Acute encephalopathy G93.40 Urinary tract infection N30.01 Hematuria presence: with hematuria Urinary tract infection type: acute cystitis Dehydration E86.0 Elevated troponin R79.89 Rhabdomyolysis T79.6XXA Encounter type: initial encounter Rhabdomyolysis type: traumatic Compression fracture of L5 vertebra S32.050A Recurrent falls R29.6 Cholestasis K83.1 Transaminitis R74.0 Leukocytosis D72.829 Skin lesion of right arm L98.9 Lung nodule seen on imaging study R91.1 Goals of care, counseling/discussion Z71.89
[2023-12-17] MEDS: ropinirole 0.25 mg Tablet 0.5 MG PO (17:17)
[2023-12-17] MEDS: cefTRIAXone 1,000 mg SDV 1000 MG IVP (23:00)
--- NOTE | 2023-12-17 23:35 | USCV_ITS ---
Imer Brasher Age: 78 Gender: F : 1945 Exam Date: 12/17/2023 00:09 Ordering Phys: Dileep Bajwa MD Technologist: ANU Exam Location: [place] Indication: found down, recurrent falls, History of moderate . Patient is minimally responsive in 253-2. BP: 164 / 79 HR: 95 Rhythm: Sinus Technical Quality: Adequate MEASUREMENTS (Male / Female) Normal Values 2D ECHO LV Diastolic Diameter PLAX 3.5 cm 4.2 - 5.9 / 3.9 - 5.3 cm IVS Diastolic Thickness 2.2 cm 0.6 - 1.0 / 0.6 - 0.9 cm IVS Systolic Thickness 2.3 cm LVPW Diastolic Thickness 1.4 cm 0.6 - 1.0 / 0.6 - 0.9 cm LVPW Systolic Thickness 1.8 cm LVOT Diameter 1.5 cm LV Ejection Fraction 2D Teich 69.7 % LV Ejection Fraction MOD 4C 59.0 % LV Ejection Fraction MOD 2C 65.4 % LV Ejection Fraction 2C AL 70.7 % LA Diameter 4.4 cm Aorta at Sinotubular Diameter 2.1 cm IVC Diameter 1.4 cm M-MODE LA Ao Ratio MM 1.2 AV Cusp Separation MM 1.1 cm DOPPLER AV Peak Velocity 365.0 cm/s LVOT Peak Velocity 125.0 cm/s AV Area Cont Eq vti 0.6 cm squared AV Area Cont Eq pk 0.6 cm squared MV Peak Velocity 248.0 cm/s MV Area PHT 2.3 cm squared Mitral E to A Ratio 0.8 TV Peak Velocity 322.7 cm/s TR Peak Velocity 336.0 cm/s TR Peak Gradient 45.2 mmHg TV Peak E Velocity 83.0 cm/s Right Atrial Pressure 10.0 mmHg Pulmonary Artery Systolic Pressu 55.2 mmHg PV Peak Velocity 95.0 cm/s FINDINGS Left Ventricle Left ventricle is normal in size. LV systolic function is normal with EF of 60-65%. No regional wall motion abnormalities are seen. Moderte to severe left ventricular hypertrophy. Grade 1 diastolic dysfunction. Right Ventricle Normal in size and function. Right Atrium Normal in size. Left Atrium Normal in size Mitral Valve Moderate mitral annular calcification. Mean gradient across mitral valve is 7.73 mmHg. This is consistent with moderate mitral stenosis. Aortic Valve Likely bioprosthetic aortic valve. Moderate stenosis with mean gradient across the valve of 27mmHg. DVI is normal and is 0.31. Tricuspid Valve Mild to moderate tricuspid regurgitation. RVSP is 55 to 60 mmHg. This is consistent with moderate pulmonary hypertension. Pulmonic Valve Mild pulmonic regurgitation. Pericardium Grossly normal Aorta Normal in size IVC Appears to be normal CONCLUSIONS LV systolic function is normal with EF of 60-65% Moderate to severe left ventricular hypertrophy Grade 1 diastolic dysfunction Moderate mitral stenosis. Moderate bioprosthetic aortic valve stenosis Mild to moderate tricuspid regurgitation Moderate pulmonary hypertension. Compared to prior echocardiogram from 2022, gradients across aortic valve have increased and patient has moderate stenosis of mitral valve. Caesar Robertson MD (Electronically Signed) Final Date: 17 December 2023 08:26 S
--- NOTE | 2023-12-17 23:35 | US_ITS ---
WS: [id number] RIGHT UPPER QUADRANT ULTRASOUND HISTORY: hepatobiliary, elev bili, AP COMPARISON: Prior CT 12/16/2023, ultrasound 10/24/2019. Liver: 14.8 cm in length. Normal size liver and echogenicity. No bile duct dilatation or mass. Portal Vein: Normal hepatopetal flow with monophasic waveform. Gallbladder: Prior cholecystectomy. Gallbladder was not identified on recent ultrasounds or CTs. CBD: 0.9 cm Pancreas: Normal size and echogenicity. Right kidney: 9.9 cm in length. Normal size and echogenicity. No hydronephrosis or mass. Aorta and IVC: Unremarkable abdominal aorta and IVC. No ascites. US/US gall bladder 59904 IMPRESSION: 1. Prior cholecystectomy. 2. Mildly dilated common bile duct probably on the basis of the cholecystectom y. No intrahepatic dilatation. No mass identified at the pancreatic head. 3. Negative liver.
[2023-12-18] VITALS (9 sets, daily range): BP systolic 158–189; BP diastolic 71–81; PULSE 69–114; RESP 18–26; TEMP 36.3–38.1; O2SAT 91–98
[2023-12-18] MEDS: clopidogrel 75 mg Tablet PO (05:03)
[2023-12-18] MEDS: metoprolol succinate ER (24 HR) 50 mg Tablet PO ×2 (05:04→08:22)
[2023-12-18 05:15] LABS: Basophils # 0.1 10^3/uL (0.0-0.1); Basophils % 0.4 %; Eosinophils # 0.4 10^3/uL (0.0-0.8); Eosinophils % 3.1 %; Hematocrit 44.2 % (36-47); Lymphocytes # 1.2 10^3/uL (0.8-4.8); Lymphocytes % 9.2 %; Mean Corpuscular HGB Conc 30.1 g/dL (30-55); Mean Corpuscular Hemoglobin 28.5 pg (27-33); Mean Corpuscular Volume 94.8 fl (85-98); Mean Platelet Volume 11.2 fL (7.4-10.4); Monocytes # 0.9 10^3/uL (0.2-0.9); Monocytes % 7.3 %; Neutrophils # 10.05 10^3/uL (1.8-7.7); Neutrophils % 79.4 %; Nucleated Red Blood Cells % 0 %; Platelet Count 88 10^3/cmm (157-399); Red Blood Count 4.66 10^6/uL (3.85-5.65); Red Cell Distribution Width 13.6 % (12.1-15.1); White Blood Count 12.66 10^3/uL (3.29-11.43)
[2023-12-18 05:40] LABS: Alanine Aminotransferase 103 U/L (0-33); Albumin Level 2.9 g/dL (3.5-5.2); Alkaline Phosphatase 160 U/L (35-105); Aspartate Amino Transferase 66 U/L (0-32); Blood Urea Nitrogen 17 mg/dL (8-23); Calcium 8.1 mg/dL (8.5-10.5); Carbon Dioxide 22 mmol/L (22-29); Chloride 103 mmol/L (98-107); Creatinine Clr Calc Pharmacy 55.0543; Glucose 129 mg/dL (65-115); Osmolality Calculated 289 mOsm/kg (285-295); Sodium 138 mmol/L (136-145); Total Bilirubin 1.1 mg/dL (0.15-1.2); Total Protein 5.9 g/dL (6.6-8.7)
[2023-12-18 06:15] LABS: Creatine Phosphokinase 445 U/L (26-192)
[2023-12-18] MEDS: acetaminophen 325 mg Tablet 650 MG PO (08:20)
[2023-12-18] MEDS: ropinirole 0.25 mg Tablet 0.5 MG PO ×2 (08:20→17:03)
[2023-12-18] MEDS: aspirin 81 mg EC Tablet PO (08:22)
--- NOTE | 2023-12-18 10:04 | ECG_ITS ---
[facility] Test Date: 2023-12-18 Pat Name: Imer Brasher Department: Room: 253 Gender: Female [employer]obile [employer] As[employer]er: : 1945 Requested By: Dileep Bajwa Order Number: [id number] Gregory MD: Caesar Robertson M.D. Measurements Intervals [place] Rate: 78 P: 58 AR: 128 QRS: -50 QRSD: 118 T: 53 QT: 420 QTc: 479 Interpretive Statements SINUS RHYTHM INCOMPLETE RIGHT BUNDLE BRANCH BLOCK [90+ ms QRS DURATION, TERMINAL R IN V1/V2, 40+ ms S IN I/aVL/V4/V5/V6] LEFT ANTERIOR FASCICULAR BLOCK [QRS AXIS <= -45, QR IN I, RS IN II] VOLTAGE CRITERIA FOR LVH [MEETS CRITERIA IN ONE OF: R(aVL), S(V1), R(V5), R(V5/V6)+S(V1)] MINIMAL ST DEPRESSION [0.025+ mV ST DEPRESSION] Compared to ECG 12/17/2023 01:24:16 Left anterior fascicular block now present ST (T wave) deviation now present Sinus arrhythmia no longer present Left-axis deviation no longer present Electronically Signed On 12-18-2023 11:28:19 CDT by Caesar Robertson M.D. [email or web address]
[2023-12-18 10:05] LABS: Hepatitis A Antibody IgM Non-Reactive (Nonreactive); Hepatitis B Core IgM Non-Reactive (Nonreactive); Hepatitis B Surface Antigen Non-Reactive (Nonreactive); Hepatitis C Virus Antibody Non-Reactive (Nonreactive)
[2023-12-18 10:07] LABS: HIV 1 & 2 Antibody Non-Reactive (Non-Reactiv); HIV 1 & 2 Antigen Non-Reactive (Non-Reactiv)
[2023-12-18] MEDS: lactated ringers 1,000 ML 75 ML IV (12:24)
--- NOTE | 2023-12-18 12:36 | PC.SOCIAL ---
IMM Updated Updated pt on IMM. No questions voiced. Provided pt a copy. Initialed, dated, & timed a copy & placed in chart.
--- NOTE | 2023-12-18 16:19 | P.PN_ITS ---
Subjective 2 Subjective: Patient was seen this morning, she is alert to person, to place, not to time she follows all commands, displaying symptoms of dyskinesia, she tells me that these are chronic, she is doing okay should testing this morning, no fevers, no chills, Vitals/I&O/Wt Last Vital Signs Temp 98.4 F 12/18/23 12:00 Pulse 78 12/18/23 12:00 Resp 19 H 12/18/23 12:00 BP 189/71 12/18/23 12:00 Pulse Ox 98 12/18/23 12:00 O2 Del Method Nasal Cannula 12/18/23 08:00 O2 Flow Rate 1 12/18/23 04:00 12/18/23 12/18/23 12/18/23 06:59 14:59 22:59 Intake Total 430 / 1900 1600 / 1600 Output Total 500 / 500 Balance -70 / 1400 1600 / 1600 Weight last 48 hrs Weight 67.132 kg Weight 67.132 kg Weight 67.54 kg Physical Exam 2 Const: COMMON NORMALS: no acute distress ORIENTATION/CONSCIOUSNESS: Yes awake, Yes oriented to person and Yes oriented to place Resp: COMMON NORMALS: normal respiratory effort, No retractions, No use of accessory muscles and clear to auscultation bilaterally AUSCULTATION: clear to auscultation bilaterally Cardio: COMMON NORMALS: regular rate, regular rhythm, S1 normal heart sound present and S2 normal heart sound present RATE: regular rate RHYTHM: r egular rhythm HEART SOUNDS: S1 normal heart sound present and S2 normal heart sound present GI: COMMON NORMALS: Normal to inspection, nondistended, normoactive bowel sounds present and non-tender Extremity: COMMON NORMALS: no pedal edema Neuro: SENSORIUM/ORIENTATION: Yes oriented to person and Yes oriented to place Data 12/18/23 04:07 12/18/23 04:07 Micro: Microbiology 12/16/23 19:47 Urine Culture - Preliminary Urine,Clean Catch Gram Negative Rods 12/16/23 21:28 Blood Culture - Preliminary Blood NEGATIVE TO DATE 12/16/23 21:25 Blood Culture - Preliminary Blood NEGATIVE TO DATE A&P Assessment and plan (1) Acute encephalopathy: -Neurochecks, NIH stroke scale -Does have a UTI -She does have tardive dyskinesia, noted some intermittent gazes into left upper visual field, but no difficulties with tracking - Head CT without acute abnormality. - Head and neck CTA with vasculopathy with 50 to 69% of both internal carotid arteries among other findings including 50-69% stenosis of proximal right subclavian artery. 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 Will have her follow-up with vascular surgery as outpatient -PT OT (2) Urinary tract infection: -continue rocephin Qualifiers: Hematuria presence: with hematuria Urinary tract infection type: acute cystitis Qualified Code(s): N30.01 - Acute cystitis with hematuria (3) Dehydration: _IV fluids (4) Elevated troponin: - Baseline troponin 135 ? 6-hour troponin nine 9.59 ? EKG no acute ST-T wave changes ? No chest pain complaints ? Continue aspirin ? Hold off on statin given rhabdomyo lysis ?CONCLUSIONS LV systolic function is normal with EF of 60-65% Moderate to severe left ventricular hypertrophy Grade 1 diastolic dysfunction Moderate mitral stenosis. Moderate bioprosthetic aortic valve stenosis Mild to moderate tricuspid regurgitation Moderate pulmonary hypertension. Compared to prior echocardiogram from 2022, gradients across aortic valve have increased and patient has moderate stenosis of mitral valve. (5) Rhabdomyolysis: Continue IV fluids Qualifiers: Encounter type: initial encounter Rhabdomyolysis type: traumatic Qualified Code(s): T79.6XXA - Traumatic ischemia of muscle, initial encounter (6) Compression fracture of L5 vertebra: Appears to have sustained new L5 compression fracture of superior endplate, likely after fall on Thursday. Acetaminophen as needed. Lidocaine patch. PT assessment. Follow-up for further reassessment and management of recurrent falls, likely osteoporosis. (7) Recurrent falls: -Does have moderate bioprosthetic valve aortic stenosis, will need to be monitored as outpatient With polypharmacy. Wound avoid and discontinue oxybutynin, tizanidine at discharge, or any other nonessential medications that may contribute to falls. PT assessment. Additionally with neurologic gait disorder, follow-up with neurology. (8) Cholestasis: - Monitor (9) Transaminitis: - Monitor (10) Leukocytosis: Leukocytosis, possibly secondary to UTI, dehydration, stress. Antibiotic as above. Reassess blood counts. (11) Skin lesion of right arm: Skin tear of left forearm. Continue wound care. (12) Lung nodule seen on imaging study: Incidentally seen lung nodule on CTA. Needs to follow-up with primary provider for further assessment. 1.1 cm subsolid nodule in the right upper lobe. Recommend CT Chest at 3-6 months to confirm persistence of the nodule. If unchanged and solid component remains < 6 mm, annual CT Chest should be performed for 5 years. (13) Goals of care, counseling/discussion: In terms of goals of care discussion case of cardiopulmonary arrest she states would not want CPR, but in case of isolated respiratory issue would be okay with intubation and temporary mechanical ventilatory support assuming a reversible problem. 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 Hold statin for now. History of aortic stenosis, with bioprosthetic valve with moderate stenosis back in June 2022, Moderate LVH, Hypertension, INOCENTE, RLS, Other medical problems Plan for today continue IV antibiotics, blood pressure control Attestations 2 Medical Necessity Statement*: Patient requires hospitalization for UTI requiring IV Rocephin Diagnoses Acute encephalopathy G93.40 Urinary tract infection N30.01 Hematuria presence: with hematuria Urinary tract infection type: acute cystitis Dehydration E86.0 Elevated troponin R79.89 Rhabdomyolysis T79.6XXA Encounter type: initial encounter Rhabdomyolysis type: traumatic Compression fracture of L5 vertebra S32.050A Recurrent falls R29.6 Cholestasis K83.1 Transaminitis R74.0 Leukocytosis D72.829 Skin lesion of right arm L98.9 Lung nodule seen on imaging study R91.1 Goals of care, counseling/discussion Z71.89
[2023-12-18] MEDS: lisinopril 20 mg Tablet PO (16:35)
[2023-12-18] MEDS: amlodipine 10 mg Tablet PO (16:35)
[2023-12-18] MEDS: cefTRIAXone 1,000 mg SDV 1000 MG IVP (21:10)
[2023-12-19] VITALS (7 sets, daily range): BP systolic 155–170; BP diastolic 77–91; PULSE 79–98; RESP 16–24; TEMP 36.4–37; O2SAT 92–99
[2023-12-19 02:52] LABS: Basophils % 0.4 %; Eosinophils # 0.3 10^3/uL (0.0-0.8); Eosinophils % 2.7 %; Hematocrit 38.7 % (36-47); Lymphocytes % 10.3 %; Mean Corpuscular HGB Conc 31.8 g/dL (30-55); Mean Corpuscular Hemoglobin 28.1 pg (27-33); Mean Corpuscular Volume 88.6 fl (85-98); Mean Platelet Volume 10.8 fL (7.4-10.4); Monocytes # 0.8 10^3/uL (0.2-0.9); Monocytes % 8.4 %; Neutrophils # 7.63 10^3/uL (1.8-7.7); Neutrophils % 77.8 %; Nucleated Red Blood Cells % 0 %; Platelet Count 114 10^3/cmm (157-399); Red Blood Count 4.37 10^6/uL (3.85-5.65); Red Cell Distribution Width 13.6 % (12.1-15.1)
[2023-12-19 03:10] LABS: Alanine Aminotransferase 73 U/L (0-33); Albumin Level 3.1 g/dL (3.5-5.2); Alkaline Phosphatase 146 U/L (35-105); Anion Gap 14.8 (5-19); Aspartate Amino Transferase 36 U/L (0-32); Blood Urea Nitrogen 10 mg/dL (8-23); Calcium 7.9 mg/dL (8.5-10.5); Carbon Dioxide 24 mmol/L (22-29); Chloride 102 mmol/L (98-107); Creatinine Clr Calc Pharmacy 55.0543; Glucose 146 mg/dL (65-115); Osmolality Calculated 286 mOsm/kg (285-295); Potassium 3.8 mmol/L (3.5-5.1); Sodium 137 mmol/L (136-145); Total Bilirubin 0.8 mg/dL (0.15-1.2); Total Protein 5.1 g/dL (6.6-8.7)
[2023-12-19 03:11] LABS: Creatine Phosphokinase 187 U/L (26-192)
[2023-12-19] MEDS: clopidogrel 75 mg Tablet PO (06:35)
[2023-12-19] MEDS: metoprolol succinate ER (24 HR) 50 mg Tablet PO (06:35)
[2023-12-19] MEDS: lisinopril 20 mg Tablet PO (08:48)
[2023-12-19] MEDS: aspirin 81 mg EC Tablet PO (08:48)
[2023-12-19] MEDS: ropinirole 0.25 mg Tablet 0.5 MG PO (08:48)
[2023-12-19] MEDS: amlodipine 10 mg Tablet PO (08:48)
--- NOTE | 2023-12-19 11:56 | P.DS_ITS ---
Discharge Providers Date of Admission: 12/16/23 22:54 Date of Discharge: December 19, 2023 Attending Provider at Admission: Dileep Bajwa Attending Provider at Discharge: Wally Clark MD Diagnoses at Discharge Discharge Diagnosis (1) Acute encephalopathy: Status: Acute (2) Urinary tract infection: Status: Acute Qualifiers: Hematuria presence: with hematuria Urinary tract infection type: acute cystitis Qualified Code(s): N30.01 - Acute cystitis with hematuria (3) Dehydration: Status: Acute (4) Elevated troponin: Status: Acute (5) Rhabdomyolysis: Status: Acute Qualifiers: Encounter type: initial encounter Rhabdomyolysis type: traumatic Qualified Code(s): T79.6XXA - Traumatic ischemia of muscle, initial encounter (6) Compression fracture of L5 vertebra: Status: Acute (7) Recurrent falls: Status: Acute (8) Cholestasis: Status: Acute (9) Transaminitis: Status: Acute (10) Leukocytosis: Status: Acute (11) Skin lesion of right arm: Status: Acute (12) Lung nodule seen on imaging study: Status: Acute (13) Goals of care, counseling/discussion: Status: Acute Reason for Visit Reason for Visit: Weakness, Fall Hospital Course Hospital Course Pleasant 78-year-old lady with history of tardive dyskinesia, neurologic gait disorder, history of unresponsive episodes, unclear etiology, in the past received tPA, although without evidence of CVA, does have carotid atherosclerotic disease, following with neurology, normally walks with a walker, also with history of orthostatic hypotensive episodes, history of aortic stenosis, with bioprosthetic valve with moderate stenosis back in June 2022, moderate LVH, as well as history of hypertension, INOCENTE, RLS, other medical problems. She was found down at home for close to 6 hours with unclear circumstances how she found herself on the floor. Initially with altered mental status and answering all questions with a huh . Currently she is awake and alert, with tardive dyskinesia, intermittent gaze to the left and above, but no gaze fixation, she is able to track horizontally and no issues with seeing me in the right lower [id number]. She does not have much recollection from today. She does remember going to the dentist on Thursday for adjustment of her lower dentures and did not take her medications for all of the day. She denies any new medications being started recently. She states that she had a fall on Thursday morning and at which point she scraped the left forearm and fell onto the TV/stand with some residual pain in her coccyx and lower back. She states that she deals with falls quite frequently. She normally uses a walker. In ER she is found tachycardic low 100s, WBC 17, platelets 95. Creatinine 1, BUN 34. Lactate 2.7. T. bili 1.6, AST 127, ALT 180, alk phos 191. CK4 07. Baseline troponin 135. Procalcitonin 1.29. UA with 21-50 WBC positive nitrate. 4+ bacteria. Dark yellow and cloudy. Chest x-ray without acute findings. Head CT similar to prior with small vessel ischemic changes and mild cortical volume loss. Patient was admitted to [facility] for acute encephalopathy, likely secondary to urinary tract infection, patient's mentation significantly improved with IV antibiotic therapy, on discharge she is alert oriented x 3, following all commands, ambulating with physical therapy, discharged with oral antibiotics For he dehydration, received IV fluids Patient did have a fall, with a compression fracture at the L5 vertebra, she denies any pain complaints, nonetheless follow-up with Dr. Alfaro as outpatient Patient has had recurrent falls, possibly related to her tardive dyskinesia, she does have evidence of moderate bioprosthetic aortic valve stenosis, no complaints of shortness of breath, no complaints of chest pain, follow-up with cardiology She also had evidence of elevated troponins during hospitalization, no complaints of chest pain, continue her home aspirin, statin, follow-up with cardiology as outpatient For your transaminitis, please follow-up with your primary care provider in 1 week for recheck liver function, if you have right upper quadrant pain please go to the emergency room For your lung nodule, please follow-up with pulmonary in a month For history of carotid artery disease, and right subclavian artery disease, please follow-up with vascular surgery Please adhere to dysphagia level 6 diet, minced and moist, regular liquids For your aortic stenosis, of your bioprosthetic valve please follow-up with cardiology For your back L5 vertebral compression fracture if you have persistent pain, please follow-up with Dr. Alfaro Physical Exam Const: COMMON NORMALS: no acute distress and patient oriented x3 Resp: COMMON NORMALS: normal respiratory effort, No retractions, No use of a ccessory muscles and clear to auscultation bilaterally AUSCULTATION: clear to auscultation bilaterally Cardio: COMMON NORMALS: regular rate, regular rhythm, S1 normal heart sound present and S2 normal heart sound present RATE: regular rate RHYTHM: regular rhythm HEART SOUNDS: S1 normal heart sound present and S2 normal heart sound present GI: COMMON NORMALS: Normal to inspection, nondistended, normoactive bowel sounds present and non-tender Extremity: COMMON NORMALS: no pedal edema Neuro: COMMON NORMALS: patient oriented x3 Psych: COMMON NORMALS: mental status grossly normal Discharge Data Studies Completed and Pending Completed Studies During Hospitalization Category Date Time Status CT abdomen renal stone [CT kidney stone [id number]] Stat Cat Scan 12/16/23 21:[address] angio chest PE protcl [id number] Stat Cat Scan 12/16/23 21:[address] head wo con* [id number] Stat Cat Scan 12/16/23 18:38 Completed XR chest 1V portable [id number] Stat Exams 12/16/23 18:38 Completed CV. echo complete* [id number] Routine Ultrasound 12/17/23 23:35 Completed US gall bladder [id number] Routine Ultrasound 12/17/23 23:35 Completed Pending at discharge Category Date Time Status Blood Culture Stat Lab 12/16/23 21:28 Results Radiology Impressions Chest X-Ray 12/16/23 18:38 IMPRESSION: No acute cardiopulmonary findings. Head CT 12/16/23 18:38 IMPRESSION: 1. No acute intracranial findings. 2. Similar moderate small-vessel ischemic changes of mild cortical volume loss. Abdomen/Pelvis CT 12/16/23 21:18 IMPRESSION: 1. No acute findings within the abdomen/pelvis. 2. Sigmoid diverticulosis without acute diverticulitis. 3. Age indeterminate mild compression deformity along the superior endplate at L5, new from 12/30/2022. 4. Additional ancillary findings as above are similar to prior. Chest CTA 12/16/23 21:18 IMPRESSION: 1. Scattered hypoventilatory changes with areas of air trapping within the lungs bilaterally. Findings can be seen with chronic small airways disease. 2. Moderate cardiomegaly. 3. Status post TAVR. 4. Multivessel coronary artery calcifications. 5. 1.1 cm subsolid nodule in the right upper lobe. Recommend CT Chest at 3-6 months to confirm persistence of the nodule. If unchanged and solid component remains < 6 mm, annual CT Chest should be performed for 5 years. (Reference: Elizabeth) COMMENTS: Consistent with the [employer]'s Incidental Findings Committee white paper (J Am Mitchell Radiol 2015): In patients aged 35 years and older with an incidental thyroid nodule equal to or greater than 1.[address], MRI or extrathyroidal US, further evaluation with dedicated thyroid US is recommended for patients with normal life expectancy and without comorbidities. For smaller nodules without suspicious features, no further evaluation or follow up is recommended. REFERENCES: Elizabeth Chandler et al. Guidelines for Management of Incidental Pulmonary Nodules Detected on CT Images: From the Fleischner Society 2017. Radiology. 2017;284(1):228-243. Gallbladder Ultrasound 12/17/23 23:35 IMPRESSION: 1. Prior cholecystectomy. 2. Mildly dilated common bile duct probably on the basis of the cho lecystectomy. No intrahepatic dilatation. No mass identified at the pancreatic head. 3. Negative liver. Laboratory Results WBC 9.80 10^3/uL (3.29-11.43) 12/19/23 02:05 RBC 4.37 10^6/uL (3.85-5.65) 12/19/23 02:05 Hgb 12.30 g/dL (11.27-16.99) 12/19/23 02:05 Hct 38.7 % (36-47) 12/19/23 02:05 MCV 88.6 fl (85-98) D 12/19/23 02:05 MCH 28.1 pg (27-33) 12/19/23 02:05 MCHC 31.8 g/dL (30-55) D 12/19/23 02:05 RDW 13.6 % (12.1-15.1) 12/19/23 02:05 Plt Count 114 10^3/cmm (157-399) L 12/19/23 02:05 MPV 10.8 fL (7.4-10.4) H 12/19/23 02:05 Neut % (Auto) 77.8 % 12/19/23 02:05 Lymph % (Auto) 10.3 % 12/19/23 02:05 [place] % (Auto) 8.4 % 12/19/23 02:05 Eos % (Auto) 2.7 % 12/19/23 02:05 Baso % (Auto) 0.4 % 12/19/23 02:05 Neut # (Auto) 7.63 10^3/uL (1.8-7.7) 12/19/23 02:05 Lymph # (Auto) 1.0 10^3/uL (0.8-4.8) 12/19/23 02:05 [place] # (Auto) 0.8 10^3/uL (0.2-0.9) 12/19/23 02:05 Eos # (Auto) 0.3 10^3/uL (0.0-0.8) 12/19/23 02:05 Baso # (Auto) 0.0 10^3/uL (0.0-0.1) 12/19/23 02:05 Nucleated RBC % (auto) 0 % 12/19/23 02:05 Nucleated RBCs # 0.0 /100WBC 12/19/23 02:05 PT 13.90 SECONDS (12.1-14.9) 12/16/23 20:21 INR 1.04 (0.8-1.2) 12/16/23 20:21 Sodium 137 mmol/L (136-145) 12/19/23 02:05 Potassium 3.8 mmol/L (3.5-5.1) 12/19/23 02:05 Chloride 102 mmol/L (98-107) 12/19/23 02:05 Carbon Dioxide 24 mmol/L (22-29) 12/19/23 02:05 Anion Gap 14.8 (5-19) 12/19/23 02:05 BUN 10 mg/dL (8-23) 12/19/23 02:05 Creatinine 0.7 mg/dL (0.5-0.9) 12/19/23 02:05 GFR Calculation Not Reportable 12/19/23 02:05 Glucose 146 mg/dL (65-115) H 12/19/23 02:05 Calculated Osmolality 286 mOsm/kg (285-295) 12/19/23 02:05 Lactic Acid 2.7 mmol/L (0.5-2.2) H 12/16/23 20:21 Lactic Acid (Sepsis) 1.8 mmol/L (0.5-2.2) 12/16/23 23:49 Calcium 7.9 mg/dL (8.5-10.5) L 12/19/23 02:05 Magnesium 2.1 mg/dL (1.7-2.3) 12/16/23 20:21 Total Bilirubin 0.8 mg/dL (0.15-1.2) 12/19/23 02:05 AST 36 U/L (0-32) H 12/19/23 02:05 ALT 73 U/L (0-33) H 12/19/23 02:05 Alkaline Phosphatase 146 U/L (35-105) H 12/19/23 02:05 Creatine Kinase 187 U/L (26-192) 12/19/23 02:05 Troponin T Baseline 135 ng/L (0-10) H* 12/16/23 19:32 Troponin T 120 Minute 135.1 ng/L (0-10) H 12/16/23 21:25 Delta Troponin T 0.1 ABS# (0-10) 12/16/23 21:25 Troponin T Hi Sens 6Hr 99.59 ng/L (0-10) H 12/17/23 02:33 Troponin T Hi Sens 6Hr Delta -35.41 ng/L (0-12) L 12/17/23 02:33 Total Protein 5.1 g/dL (6.6-8.7) L 12/19/23 02:05 Albumin 3.1 g/dL (3.5-5.2) L 12/19/23 02:05 Globulin 2.0 g/dL (1.3-4.6) 12/19/23 02:05 Procalcitonin 1.29 ng/mL (0-0.5) H 12/16/23 20:21 Urine Color Dark yellow (Yellow) A 12/16/23 19:47 Urine Appearance Cloudy (CLEAR) A 12/16/23 19:47 Urine pH 5.5 (5-7) 12/16/23 19:47 Ur Specific [place] 1.020 (1.005-1.030) 12/16/23 19:47 Urine Protein 1+ (Negative) A 12/16/23 19:47 Urine Glucose (UA) Negative (Normal) 12/16/23 19:47 Urine Ketones Trace (Negative) 12/16/23 19:47 Urine Blood Trace (Negative) A 12/16/23 19:47 Urine Nitrate Positive (Negative) A 12/16/23 19:47 Urine Bilirubin 1+ (Negative) H 12/16/23 19:47 Urine Urobilinogen 2.0 mg/dL (Negative) H 12/16/23 19:47 Ur Leukocyte Esterase 1+ (Negative) A 12/16/23 19:47 Urine RBC 0-2 /hpf (0-2) 12/16/23 19:47 Urine WBC 21-50 /hpf (0-5) H 12/16/23 19:47 Ur Squamous Epith Cells 6-10 /hpf (0-5) 12/16/23 19:47 Amorphous Sediment Not Reportable 12/16/23 19:47 Urine Bacteria 4+ /hpf (NONE) H 12/16/23 19:47 Hyaline Casts 25.46 /lpf 12/16/23 19:47 Adenovirus (PCR) Not detected (NOT DETECT) 12/17/23 00:08 C. pneumoniae DNA (PCR) Not detected (NOT DETECT) 12/17/23 00:08 Coronavirus 229E (PCR) Not detected (NOT DETECT) 12/17/23 00:08 Hepatitis A IgM Ab Non-reactive (Nonreactive) 12/18/23 09:15 Hep Bs Antigen Non-reactive (Nonreactive) 12/18/23 09:15 Hep B Core IgM Ab Non-reactive (Nonreactive) 12/18/23 09:15 Hepatitis C Antibody Non-reactive (Nonreactive) 12/18/23 09:15 HIV 1&2 Ab & HIV 1 Ag Non-reactive (Non-Reactiv) 12/18/23 09:15 HIV 1&2 Antibody Non-reactive (Non-Reactiv) 12/18/23 09:15 Human Metapneumovir PCR Not detected (NOT DETECT) 12/17/23 00:08 Influenza A (H1) PCR Not detected (NOT DETECT) 12/17/23 00:08 Influ A (H1/09) PCR Not detected (NOT DETECT) 12/17/23 00:08 Influenza A (H3) PCR Not detected (NOT DETECT) 12/17/23 00:08 Influenza Type A (PCR) Not detected (NOT DETECT) 12/17/23 00:08 Influenza Type B (PCR) Not detected (NOT DETECT) 12/17/23 00:08 M. pneumoniae (PCR) Not detected (NOT DETECT) 12/17/23 00:08 Parainfluenza 1 (PCR) Not detected (NOT DETECT) 12/17/23 00:08 Parainfluenza 2 (PCR) Not detected (NOT DETECT) 12/17/23 00:08 Parainfluenza 3 (PCR) Not detected (NOT DETECT) 12/17/23 00:08 Parainfluenza 4 (PCR) Not detected (NOT DETECT) 12/17/23 00:08 RSV Type A (PCR) Not detected (NOT DETECT) 12/17/23 00:08 RSV Type B (PCR) Not detected (NOT DETECT) 12/17/23 00:08 Entero/Rhino (PCR) Not detected (NOT DETECT) 12/17/23 00:08 SARS-CoV-2 (PCR) Not detected (NOT DETECT) 12/17/23 00:08 Vitals Last Vital Signs Temp 97.8 F 12/19/23 07:59 Pulse 94 12/19/23 10:24 Resp 17 12/19/23 04:00 BP 166/77 12/19/23 07:59 Pulse Ox 99 12/19/23 10:24 O2 Del Method Room Air 12/19/23 10:24 O2 Flow Rate 1 12/18/23 04:00 Discharge Plan Discharge Patient Disposition: Home Condition: Stable Prescriptions: New cefdinir 300 mg capsule 300 mg PO BID 5 Days Qty: 10 0RF Continued (DME) Orthopedic shoes See Rx Instructions .ROUTE .MEDSUPPLY Qty: 1 0RF Rx Instructions: With 3 pairs of inserts nystatin 100,000 unit/mL suspension 5 ml PO Q6H Qty: 60 0RF Rx Instructions: swish and swallow pantoprazole [Protonix] 40 mg tablet,delayed release (DR/EC) 40 mg PO BID 42 Days Qty: 84 0RF tizanidine 4 mg Tablet 4 mg PO TID PRN (Reason: muscle spasms) hydrocodone-acetaminophen 5-325 mg Tablet 1 tab PO Q6H PRN (Reason: Pain) omeprazole 40 mg Capsule,Delayed Release(Dr/Ec) 40 mg PO QAM aspirin 81 mg Tablet,Delayed Release (Dr/Ec) 81 mg PO QAM acyclovir 800 mg Tablet 800 mg PO DAILY Systane (PF) 0.4-0.3 % Dropperette 1 drp OPHTHALMIC (EYE) QID PRN (Reason: Dry Eyes) atorvastatin 80 mg Tablet 80 mg PO QPM acetaminophen 325 mg Tablet 650 mg PO Q6H PRN (Reason: Pain) albuterol sulfate 2.5 mg /3 mL (0.083 %) Solution For Nebulization 2.5 mg INHALATION Q6H PRN (Reason: Shortness Of Breath) metoprolol succinate 50 mg Tablet Extended Release 24 Hr 50 mg PO QAM clopidogrel 75 mg Tablet 75 mg PO QAM Hold Instructions: Resume on 09/24/23. amlodipine 10 mg Tablet 10 mg PO QAM ropinirole 0.5 mg Tablet 0.5 mg PO BID azelastine 137 mcg (0.1 %) Aerosol,[place] 1 spray INTRANASAL BID PRN (Reason: RHINITIS) Rx Instructions: administer into each nostril oxybutynin chloride 5 mg Tablet 5 mg PO QAM fluticasone propionate 50 mcg/actuation [place],Suspension 2 spray INTRANASAL Q12H PRN (Reason: RHINITIS) Rx Instructions: administer into each nostril lisinopril 20 mg tablet 20 mg PO QAM Discharge Orders: Discharge Order (Routine); Ordered 12/19/23 Ordered By: Wally Clark Referrals: Amarilys Quiles MD [Physician] - 1 month (pulmonary nodule) Ronn Alfaro DO [Physician] - 1 month (Compression fracture of L5 vertebra) Chavez Goff [Referring] - 1 month (carotid stenosis, right subclavian stenosis) Caesar Robertson M.D [Physician] - 1 month Discharge Diet: Soft Mechanical Discharge Activity: Resume usual activity Patient Instructions: Opioid Safety Activity Restrictions/Additional Instructions: - Diet, regular liquids, minced and moist -Please follow-up with your primary care provider in 1 week, to recheck your liver function -If you have persistent back pain, please follow-up with Dr. Alfaro -For your lung nodule please follow-up with Dr. Quiles -For your subclavian artery stenosis, and your carotid artery disease follow-up with vascular surgery -Please take antibiotics for UTI Discharge Attestations Time Spent in Discharge Care*: greater than 30 min Quality Metrics Clinical Quality Measures [ No reported AMI, CVA or VTE this stay] Coding Level of Care Code 62567 Total time (in minutes) for Discharge: 45 Diagnoses Acute encephalopathy G93.40 Urinary tract infection N30.01 Hematuria presence: with hematuria Urinary tract infection type: acute cystitis Dehydration E86.0 Elevated troponin R79.89 Rhabdomyolysis T79.6XXA Encounter type: initial encounter Rhabdomyolysis type: traumatic Compression fracture of L5 vertebra S32.050A Recurrent falls R29.6 Cholestasis K83.1 Transaminitis R74.0 Leukocytosis D72.829 Skin lesion of right arm L98.9 Lung nodule seen on imaging study R91.1 Goals of care, counseling/discussion Z71.89
== END 2023-12-19 13:57 | disposition home or self-care (01) | DRG 689 ==
LOC: ER 22:11 → MEDSURG 22:54
PROVIDERS: Admitting Provider Internal Medicine; Emergency Provider Emergency Medicine; PCP Family Medicine; Visit Provider Family Medicine
DX: N30.01 Acute cystitis with hematuria (principal); K83.1 Obstruction of bile duct; G93.49 Other encephalopathy; M80.88XA Other osteoporosis with current pathological fracture, vertebra(e), initial encounter for fracture; T82.857A Stenosis of other cardiac prosthetic devices, implants and grafts, initial encounter; G37.9 Demyelinating disease of central nervous system, unspecified; E86.0 Dehydration; R79.89 Other specified abnormal findings of blood chemistry; T79.6XXA Traumatic ischemia of muscle, initial encounter; W18.30XA Fall on same level, unspecified, initial encounter; Y92.009 Unspecified place in unspecified non-institutional (private) residence as the place of occurrence of the external cause; R29.6 Repeated falls; R74.01 Elevation of levels of liver transaminase levels; S50.812A Abrasion of left forearm, initial encounter; R91.1 Solitary pulmonary nodule; Z66 Do not resuscitate; J44.9 Chronic obstructive pulmonary disease, unspecified; G24.01 Drug induced subacute dyskinesia; R26.89 Other abnormalities of gait and mobility; I65.23 Occlusion and stenosis of bilateral carotid arteries; I08.3 Combined rheumatic disorders of mitral, aortic and tricuspid valves; I27.22 Pulmonary hypertension due to left heart disease; I45.10 Unspecified right bundle-branch block; I25.10 Atherosclerotic heart disease of native coronary artery without angina pectoris; Z11.52 Encounter for screening for COVID-19; I70.8 Atherosclerosis of other arteries; Z87.891 Personal history of nicotine dependence; G47.33 Obstructive sleep apnea (adult) (pediatric); G25.81 Restless legs syndrome; I10 Essential (primary) hypertension; Z79.82 Long term (current) use of aspirin; Z79.02 Long term (current) use of antithrombotics/antiplatelets; Z79.51 Long term (current) use of inhaled steroids; E78.00 Pure hypercholesterolemia, unspecified; Z95.3 Presence of xenogenic heart valve
CPT/HCPCS: 36415; 70450; 71045; 71275; 74176; 76705; 80053; 80074; 81003; 81015; 82550; 83605; 83735; 84145; 84484; 85025; 85610; 87040; 87077; 87086; 87186; 87486; 87581; 87633; 87806; 92523; 92610; 93005; 93306; 96374; 97110; 97116; 97161; 99285; J0696; J7120; Q9967

== ENCOUNTER → 2024-01-14 10:35 | Outpatient (BNVA) | payer MEDICARE, MEDICAID, SELFPAY | PROVIDERS: PCP Family Medicine; Visit Provider Internal Medicine Critical Care Medicine | DX: R93.89 Abnormal findings on diagnostic imaging of other specified body structures (principal); R91.1 Solitary pulmonary nodule; T17.908A Unspecified foreign body in respiratory tract, part unspecified causing other injury, initial encounter; X58.XXXA Exposure to other specified factors, initial encounter | CPT/HCPCS: 99203 ==

== ENCOUNTER → 2024-02-02 08:48 | Outpatient (BNVA) | payer MEDICARE, MEDICAID, SELFPAY | PROVIDERS: PCP Family Medicine; Referring Provider Family Medicine; Visit Provider Orthopaedic Surgery | DX: S32.050A Wedge compression fracture of fifth lumbar vertebra, initial encounter for closed fracture (principal); X58.XXXA Exposure to other specified factors, initial encounter | CPT/HCPCS: 72100; 99203 ==

== ENCOUNTER 2024-05-16 11:19 | Outpatient (CLI) | payer MEDICAID, SELFPAY ==
[2024-05-16 11:56] LABS: Basophils # 0.1 10^3/uL (0.0-0.1); Basophils % 0.8 %; Eosinophils # 0.1 10^3/uL (0.0-0.8); Eosinophils % 1.1 %; Hematocrit 33.9 % (36-47); Lymphocytes # 2.2 10^3/uL (0.8-4.8); Lymphocytes % 20.6 %; Mean Corpuscular HGB Conc 31.3 g/dL (30-55); Mean Corpuscular Hemoglobin 27.8 pg (27-33); Mean Platelet Volume 10.4 fL (7.4-10.4); Monocytes # 1.1 10^3/uL (0.2-0.9); Neutrophils # 6.99 10^3/uL (1.8-7.7); Neutrophils % 66.9 %; Nucleated Red Blood Cells % 0 %; Platelet Count 207 10^3/cmm (157-399); Red Blood Count 3.81 10^6/uL (3.85-5.65); Red Cell Distribution Width 12.5 % (12.1-15.1); White Blood Count 10.45 10^3/uL (3.29-11.43)
[2024-05-16 12:12] LABS: Alanine Aminotransferase 10 U/L (0-33); Albumin Level 3.1 g/dL (3.5-5.2); Alkaline Phosphatase 106 U/L (35-105); Anion Gap 15.5 (5-19); Aspartate Amino Transferase 19 U/L (0-32); Blood Urea Nitrogen 8 mg/dL (8-23); C Reactive Protein 24.4 mg/L (0.0-4.9); Calcium 8.5 mg/dL (8.5-10.5); Carbon Dioxide 27 mmol/L (22-29); Chloride 104 mmol/L (98-107); Globulin 2.8 g/dL (1.3-4.6); Glucose 170 mg/dL (65-115); Osmolality Calculated 298 mOsm/kg (285-295); Potassium 3.5 mmol/L (3.5-5.1); Sodium 143 mmol/L (136-145); Total Bilirubin 0.2 mg/dL (0.15-1.2); Total Protein 5.9 g/dL (6.6-8.7)
== END 2024-05-16 11:20 | disposition home or self-care (01) ==
LOC: LAB 11:20
PROVIDERS: PCP Family Medicine; Visit Provider Internal Medicine Infectious Disease
DX: I33.9 Acute and subacute endocarditis, unspecified (principal)
CPT/HCPCS: 80053; 85025; 86140

== ENCOUNTER 2024-05-24 11:01 | Outpatient (CLI) | payer MEDICAID, SELFPAY ==
[2024-05-24 11:25] LABS: Basophils # 0.1 10^3/uL (0.0-0.1); Basophils % 0.7 %; Eosinophils # 0.2 10^3/uL (0.0-0.8); Eosinophils % 1.6 %; Hematocrit 34.8 % (36-47); Lymphocytes # 1.5 10^3/uL (0.8-4.8); Lymphocytes % 10.8 %; Mean Corpuscular HGB Conc 31.3 g/dL (30-55); Mean Corpuscular Volume 89.5 fl (85-98); Mean Platelet Volume 9.9 fL (7.4-10.4); Monocytes # 1.4 10^3/uL (0.2-0.9); Neutrophils # 10.55 10^3/uL (1.8-7.7); Neutrophils % 76.2 %; Nucleated Red Blood Cells % 0 %; Platelet Count 224 10^3/cmm (157-399); Red Blood Count 3.89 10^6/uL (3.85-5.65); Red Cell Distribution Width 13.1 % (12.1-15.1); White Blood Count 13.84 10^3/uL (3.29-11.43)
[2024-05-24 11:46] LABS: Alanine Aminotransferase 10 U/L (0-33); Albumin Level 3.3 g/dL (3.5-5.2); Alkaline Phosphatase 107 U/L (35-105); Anion Gap 15.9 (5-19); Aspartate Amino Transferase 18 U/L (0-32); Blood Urea Nitrogen 11 mg/dL (8-23); C Reactive Protein 26.2 mg/L (0.0-4.9); Calcium 8.5 mg/dL (8.5-10.5); Carbon Dioxide 28 mmol/L (22-29); Chloride 101 mmol/L (98-107); Globulin 2.9 g/dL (1.3-4.6); Glucose 200 mg/dL (65-115); Osmolality Calculated 297 mOsm/kg (285-295); Potassium 3.9 mmol/L (3.5-5.1); Sodium 141 mmol/L (136-145); Total Bilirubin 0.3 mg/dL (0.15-1.2); Total Protein 6.2 g/dL (6.6-8.7)
== END 2024-05-24 11:02 | disposition home or self-care (01) ==
LOC: LAB 11:03
PROVIDERS: PCP Family Medicine; Visit Provider Internal Medicine Infectious Disease
DX: I33.9 Acute and subacute endocarditis, unspecified (principal)
CPT/HCPCS: 80053; 85025; 86140

== ENCOUNTER 2024-05-31 10:16 | Outpatient (CLI) | payer MEDICARE, MEDICAID, SELFPAY ==
[2024-05-31 10:49] LABS: Basophils # 0.1 10^3/uL (0.0-0.1); Basophils % 0.6 %; Eosinophils # 0.2 10^3/uL (0.0-0.8); Hematocrit 35.9 % (36-47); Lymphocytes # 2.8 10^3/uL (0.8-4.8); Lymphocytes % 23.4 %; Mean Corpuscular HGB Conc 31.2 g/dL (30-55); Mean Corpuscular Hemoglobin 27.9 pg (27-33); Mean Corpuscular Volume 89.5 fl (85-98); Mean Platelet Volume 10.7 fL (7.4-10.4); Monocytes % 8.7 %; Neutrophils # 7.66 10^3/uL (1.8-7.7); Neutrophils % 64.9 %; Nucleated Red Blood Cells % 0 %; Platelet Count 235 10^3/cmm (157-399); Red Blood Count 4.01 10^6/uL (3.85-5.65); Red Cell Distribution Width 13.4 % (12.1-15.1); White Blood Count 11.79 10^3/uL (3.29-11.43)
[2024-05-31 11:14] LABS: Alanine Aminotransferase 19 U/L (0-33); Albumin Level 3.7 g/dL (3.5-5.2); Alkaline Phosphatase 95 U/L (35-105); Anion Gap 14.5 (5-19); Aspartate Amino Transferase 25 U/L (0-32); Blood Urea Nitrogen 15 mg/dL (8-23); C Reactive Protein 8.8 mg/L (0.0-4.9); Calcium 9.1 mg/dL (8.5-10.5); Carbon Dioxide 28 mmol/L (22-29); Chloride 103 mmol/L (98-107); Globulin 3.2 g/dL (1.3-4.6); Glucose 90 mg/dL (65-115); Osmolality Calculated 292 mOsm/kg (285-295); Potassium 4.5 mmol/L (3.5-5.1); Sodium 141 mmol/L (136-145); Total Bilirubin 0.3 mg/dL (0.15-1.2); Total Protein 6.9 g/dL (6.6-8.7)
== END 2024-05-31 10:17 | disposition home or self-care (01) ==
LOC: LAB 10:21
PROVIDERS: PCP Family Medicine; Visit Provider Internal Medicine Infectious Disease
DX: I33.9 Acute and subacute endocarditis, unspecified (principal)
CPT/HCPCS: 80053; 85025; 86140

== ENCOUNTER 2024-06-07 12:37 | Outpatient (CLI) | payer MEDICARE, MEDICAID, SELFPAY ==
[2024-06-07 13:02] LABS: Basophils % 0.5 %; Eosinophils # 0.2 10^3/uL (0.0-0.8); Hematocrit 37.9 % (36-47); Lymphocytes # 1.5 10^3/uL (0.8-4.8); Mean Corpuscular HGB Conc 30.9 g/dL (30-55); Mean Corpuscular Hemoglobin 27.5 pg (27-33); Mean Corpuscular Volume 89.2 fl (85-98); Monocytes # 0.9 10^3/uL (0.2-0.9); Monocytes % 12.9 %; Neutrophils # 4.02 10^3/uL (1.8-7.7); Neutrophils % 60.3 %; Nucleated Red Blood Cells % 0 %; Platelet Count 173 10^3/cmm (157-399); Red Blood Count 4.25 10^6/uL (3.85-5.65); Red Cell Distribution Width 14.5 % (12.1-15.1); White Blood Count 6.66 10^3/uL (3.29-11.43)
[2024-06-07 13:25] LABS: Alanine Aminotransferase 11 U/L (0-33); Albumin Level 3.7 g/dL (3.5-5.2); Alkaline Phosphatase 98 U/L (35-105); Aspartate Amino Transferase 21 U/L (0-32); Blood Urea Nitrogen 9 mg/dL (8-23); C Reactive Protein 38.2 mg/L (0.0-4.9); Calcium 8.7 mg/dL (8.5-10.5); Carbon Dioxide 26 mmol/L (22-29); Chloride 100 mmol/L (98-107); Globulin 3.1 g/dL (1.3-4.6); Glucose 154 mg/dL (65-115); Osmolality Calculated 290 mOsm/kg (285-295); Sodium 139 mmol/L (136-145); Total Bilirubin 0.4 mg/dL (0.15-1.2); Total Protein 6.8 g/dL (6.6-8.7)
== END 2024-06-07 12:38 | disposition home or self-care (01) ==
LOC: LAB 12:40
PROVIDERS: PCP Family Medicine; Visit Provider Internal Medicine Infectious Disease
DX: I33.9 Acute and subacute endocarditis, unspecified (principal)
CPT/HCPCS: 80053; 85025; 86140

== ENCOUNTER 2024-06-14 10:06 | Outpatient (CLI) | payer MEDICARE, MEDICAID, SELFPAY ==
[2024-06-14 11:19] LABS: Hematocrit 35.8 % (36-47); Mean Corpuscular HGB Conc 31.8 g/dL (30-55); Mean Corpuscular Hemoglobin 27.6 pg (27-33); Mean Corpuscular Volume 86.7 fl (85-98); Mean Platelet Volume 10.5 fL (7.4-10.4); Platelet Count 199 10^3/cmm (157-399); Red Blood Count 4.13 10^6/uL (3.85-5.65); Red Cell Distribution Width 14.3 % (12.1-15.1)
[2024-06-14 11:37] LABS: Alanine Aminotransferase 8 U/L (0-33); Albumin Level 3.3 g/dL (3.5-5.2); Alkaline Phosphatase 104 U/L (35-105); Anion Gap 15.9 (5-19); Aspartate Amino Transferase 19 U/L (0-32); Blood Urea Nitrogen 12 mg/dL (8-23); C Reactive Protein 11.1 mg/L (0.0-4.9); Calcium 8.8 mg/dL (8.5-10.5); Carbon Dioxide 26 mmol/L (22-29); Chloride 101 mmol/L (98-107); Globulin 2.9 g/dL (1.3-4.6); Glucose 107 mg/dL (65-115); Osmolality Calculated 288 mOsm/kg (285-295); Potassium 3.9 mmol/L (3.5-5.1); Sodium 139 mmol/L (136-145); Total Bilirubin 0.4 mg/dL (0.15-1.2); Total Protein 6.2 g/dL (6.6-8.7)
[2024-06-14 12:35] LABS: Total Cells Counted 100 (0-100)
[2024-06-14 12:40] LABS: Absolute Eosinophils 0.7 10^3/cmm (0.0-0.7); Absolute Neutrophil 3.7 10^3/cmm (1.4-6.5); Absolute Segmented Neutrophil 3.7 10/cmm (1.6-7.1); Eosinophils 9 %; Lymphocytes 33 %; Lymphocytes Absolute 2.6 10^3/cmm (1.2-3.4); Monocytes Absolute 0.8 10^3/cmm (0.1-0.6); Platelet Estimate Normal (Normal); Segmented Neutrophils 48 %
== END 2024-06-14 10:07 | disposition home or self-care (01) ==
PROVIDERS: PCP Family Medicine; Visit Provider Internal Medicine Infectious Disease
DX: I33.9 Acute and subacute endocarditis, unspecified (principal)
CPT/HCPCS: 80053; 85007; 85027; 86140

== ENCOUNTER → 2024-06-23 15:32 | Outpatient (BNVA) | payer MEDICARE, MEDICAID, SELFPAY | PROVIDERS: PCP Family Medicine; Referring Provider Family Medicine; Visit Provider Specialist | DX: G24.01 Drug induced subacute dyskinesia (principal); T43.505A Adverse effect of unspecified antipsychotics and neuroleptics, initial encounter; G24.3 Spasmodic torticollis; Z95.2 Presence of prosthetic heart valve; X58.XXXA Exposure to other specified factors, initial encounter | CPT/HCPCS: 99214 ==

== ENCOUNTER → 2024-09-23 14:27 | Outpatient (BNVA) | payer MEDICARE, MEDICAID, SELFPAY | PROVIDERS: Family Provider Family Medicine; PCP Family Medicine; Visit Provider Family Medicine | DX: I10 Essential (primary) hypertension (principal); M54.40 Lumbago with sciatica, unspecified side; G89.29 Other chronic pain | CPT/HCPCS: 80053; 80061; 83036; 85025 ==

== ENCOUNTER 2024-10-05 21:15 | Emergency (ER) | payer OTHER, MEDICAID, SELFPAY ==
[2024-10-05] VITALS (7 sets, daily range): BP systolic 147–173; BP diastolic 48–123; PULSE 103–117; RESP 18; TEMP 37.2; O2SAT 96–98; BMI 22.1
--- NOTE | 2024-10-05 21:40 | XRR_ITS ---
PROCEDURE INFORMATION: Exam: XR Left Hand Exam date and time: 10/05/2024 9:50 PM Age: 79 years old Clinical indication: Pain; Hand; Right; Additional info: Fall, injury, pain TECHNIQUE: Imaging protocol: Radiologic exam of the left hand. Views: 3 or more views. COMPARISON: No relevant prior studies available. FINDINGS: Bones/joints: Osteopenia. No acute displaced fracture or dislocation. Diffuse degenerative change. Soft tissues: Normal. XR/XR hand LT 2V [id number] IMPRESSION: No acute findings.
--- NOTE | 2024-10-05 21:40 | XRR_ITS ---
PROCEDURE INFORMATION: Exam: XR Right Hip Exam date and time: 10/05/2024 9:47 PM Age: 79 years old Clinical indication: Hip pain; Right hip; Additional info: Fall, hip pain TECHNIQUE: Imaging protocol: Radiologic exam of the right hip. Views: 1 view hip with pelvis when performed. COMPARISON: CT kidney stone [id number] 12/16/2023 9:38 PM FINDINGS: Bones/joints: No acute displaced fracture or dislocation. Moderate narrowing of right femoroacetabular joint. Soft tissues: Unremarkable. Gastrointestinal tract: Large colonic and rectal stool burden. XR/XR hip RT 2-3V wo/w pel* [id number] IMPRESSION: No acute displaced fracture or dislocation.
--- NOTE | 2024-10-05 21:40 | ECG_ITS ---
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 Measurements Intervals [place] Rate: 105 P: 65 TN: 122 QRS: -67 QRSD: 125 T: 64 QT: 362 QTc: 480 Interpretive Statements SINUS TACHYCARDIA WITH OCCASIONAL VENTRICULAR PREMATURE COMPLEXES WITH OCCASIONAL SUPRAVENTRICULAR PREMATURE COMPLEXES POSSIBLE RIGHT ATRIAL ENLARGEMENT [0.25mV P-WAVE] RIGHT BUNDLE BRANCH BLOCK [120+ ms QRS DURATION, UPRIGHT V1, 40+ ms S IN I/aVL/V4/V5/V6] LEFT ANTERIOR FASCICULAR BLOCK [QRS AXIS <= -45, QR IN I, RS IN II] LEFT VENTRICULAR HYPERTROPHY AND ST-T CHANGE [VOLTAGE CRITERIA PLUS ST/T ABNORMALITY] POSSIBLE SEPTAL MYOCARDIAL INFARCTION , PROBABLY OLD [30 ms Q WAVE IN V1/V2] No previous ECG available for comparison Electronically Signed On 10-05-2024 21:48:33 CDT by Zarina Pride M.D. [email or web address]
--- NOTE | 2024-10-05 21:40 | CTR_ITS ---
PROCEDURE INFORMATION: Exam: CT Chest With Contrast; Diagnostic Exam date and time: 10/05/2024 10:06 PM Age: 79 years old Clinical indication: Injury or trauma; Fall; Abdominal wall; Blunt trauma (contusions or hematomas); Additional info: Trauma, back pain, right hip pain TECHNIQUE: Imaging protocol: Diagnostic computed tomography of the chest with contrast. Radiation optimization: All CT scans at this facility use at least one of these dose optimization techniques: automated exposure control; mA and/or kV adjustment per patient size (includes targeted exams where dose is matched to clinical indication); or iterative reconstruction. Contrast material: OMNIPAQUE 350; Contrast volume: 100 ml; Contrast route: INTRAVENOUS (IV); COMPARISON: CT angio chest PE protcl [id number] 12/16/2023 9:41 PM RADIATION DOSE METRICS: Total DLP (mGy-cm): 307.1 FINDINGS: Tubes, catheters and devices: Aortic valve prosthesis. Thyroid: Unremarkable thyroid. Lungs: Unremarkable. No consolidation. No masses. Pleural spaces: Unremarkable. No pneumothorax. No pleural effusion. Heart: Unremarkable. No cardiomegaly. No pericardial effusion. Coronary arteries: CABG. Esophagus: Unremarkable thoracic esophagus. Lymph nodes: Unremarkable. No enlarged lymph nodes. Vasculature: Negative for aortic aneurysm. Negative for traumatic aortic injury. Bones/joints: Mild severity inferior vertebral endplate fracture deformity of the T12 vertebral body is new from comparison but otherwise unknown chronicity. Negative for retropulsion. Thoracic spine alignment is anatomic.The thoracic spine demonstrates moderate degenerative changes at multiple levels. Soft tissues: Unremarkable. PROCEDURE INFORMATION: Exam: CT Abdomen And Pelvis With Contrast Exam date and time: 10/05/2024 10:06 PM Age: 79 years old Clinical indication: Injury or trauma; Fall; Abdominal wall; Blunt trauma (contusions or hematomas); Additional info: Trauma, back pain, right hip pain TECHNIQUE: Imaging protocol: Computed tomography of the abdomen and pelvis with contrast. Radiation optimization: All CT scans at this facility use at least one of these dose optimization techniques: automated exposure control; mA and/or kV adjustment per patient size (includes targeted exams where dose is matched to clinical indication); or iterative reconstruction. Contrast material: OMNIPAQUE 350; Contrast volume: 100 ml; Contrast route: INTRAVENOUS (IV); COMPARISON: CT kidney stone [id number] 12/16/2023 9:38 PM RADIATION DOSE METRICS: Total DLP (mGy-cm): 500.3 FINDINGS: Liver: Normal. No mass. Gallbladder and biliary ducts: Cholecystectomy. Mild common bile duct dilation stable from comparison. Pancreas: Atrophic pancreas. Negative for lesion. Negative for traumatic injury. Spleen: Normal. No splenomegaly. Adrenal glands: Normal. No mass. Kidneys and ureters: Normal. No hydronephrosis. Stomach and bowel: Diverticulosis coli. Negative for bowel inflammatory changes. Negative for bowel obstruction or perforation. Large diverticulum arising from the superior wall of the 3rd portion of the duodenum. Appendix: No evidence of appendicitis. Intraperitoneal space: Unremarkable. No free air. No significant fluid collection. Vasculature: Unremarkable. No abdominal aortic aneurysm. Lymph nodes: Unremarkable. No enlarged lymph nodes. Urinary bladder: Unremarkable as visualized. Reproductive: Hysterectomy. Bones/joints: Negative for acute lumbar spine fractures. Pre-existing L4 and L5 compression fractures previously treated with vertebral augmentation. Negative for acute pelvis or hip fracture. Joint alignments are anatomic. Soft tissues: Unremarkable. CT/CT chest abdpel w/*[id number] IMPRESSION: 1. Age indeterminate mild severity T12 inferior vertebral endplate compression fracture deformity. 2. Negative for acute intrathoracic injury. IMPRESSION: Negative for acute abdominopelvic pathology.
--- NOTE | 2024-10-05 21:40 | CTR_ITS ---
PROCEDURE INFORMATION: Exam: CT Head Without Contrast Exam date and time: 10/05/2024 10:03 PM Age: 79 years old Clinical indication: Injury or trauma; Fall; Blunt trauma (contusions or hematomas); Consciousness not specified TECHNIQUE: Imaging protocol: Computed tomography of the head without contrast. Radiation optimization: All CT scans at this facility use at least one of these dose optimization techniques: automated exposure control; mA and/or kV adjustment per patient size (includes targeted exams where dose is matched to clinical indication); or iterative reconstruction. COMPARISON: CT head wo con* [id number] 12/16/2023 6:57 PM RADIATION DOSE METRICS: Total DLP (mGy-cm): 1012.59 FINDINGS: Brain: Parenchymal volume loss with scattered white matter hyperintensities consistent with chronic microvascular ischemic changes. No acute intracranial hemorrhage, mass effect or midline shift. Cerebral ventricles: No ventriculomegaly. Paranasal sinuses: Visualized sinuses are unremarkable. No fluid levels. Mastoid air cells: Visualized mastoid air cells are well aerated. Bones: Unremarkable. No acute fracture. Soft tissues: Unremarkable. Other findings: Severe calcified intracranial atherosclerosis. CT/CT head wo con* [id number] IMPRESSION: No acute intracranial abnormality.
[2024-10-05 21:53] LABS: Basophils # 0.1 10^3/uL (0.0-0.1); Basophils % 0.4 %; Eosinophils % 0.2 %; Hematocrit 47.2 % (36-47); Lymphocytes # 1.4 10^3/uL (0.8-4.8); Lymphocytes % 8.2 %; Mean Corpuscular HGB Conc 31.8 g/dL (30-55); Mean Corpuscular Volume 88.1 fl (85-98); Mean Platelet Volume 12.5 fL (7.4-10.4); Monocytes % 11.1 %; Neutrophils # 13.97 10^3/uL (1.8-7.7); Neutrophils % 79.7 %; Nucleated Red Blood Cells % 0 %; Platelet Count 120 10^3/cmm (157-399); Red Blood Count 5.36 10^6/uL (3.85-5.65); Red Cell Distribution Width 14.4 % (12.1-15.1); White Blood Count 17.53 10^3/uL (3.29-11.43)
[2024-10-05] MEDS: iohexol 350 mg/mL 500 mL Btl (per mL) IV (21:55)
[2024-10-05] MEDS: morphine 4 mg/mL SDV 1 mL IVP (21:57)
[2024-10-05 22:03] LABS: Alanine Aminotransferase 13 U/L (0-33); Albumin Level 3.7 g/dL (3.5-5.2); Alkaline Phosphatase 92 U/L (35-105); Anion Gap 19.2 (5-19); Aspartate Amino Transferase 22 U/L (0-32); Blood Urea Nitrogen 23 mg/dL (8-23); Calcium 9.2 mg/dL (8.5-10.5); Carbon Dioxide 25 mmol/L (22-29); Chloride 98 mmol/L (98-107); Creatine Phosphokinase 88 U/L (26-192); Creatinine Clr Calc Pharmacy 44.7238; Globulin 3.8 g/dL (1.3-4.6); Glucose 125 mg/dL (65-115); Osmolality Calculated 291 mOsm/kg (285-295); Potassium 4.2 mmol/L (3.5-5.1); Sodium 138 mmol/L (136-145); Total Bilirubin 1.1 mg/dL (0.15-1.2); Total Protein 7.5 g/dL (6.6-8.7)
[2024-10-05 22:18] LABS: INR 1.05 (0.8-1.2); Partial Thromboplastin Time 25.8 SECONDS (23.9-36.7)
[2024-10-05 22:40] LABS: Lactic Sepsis W/Reflex 1.2 mmol/L (0.5-2.2)
[2024-10-05 23:16] LABS: Bilirubin Urine Negative (Negative); Blood Urine Negative (Negative); Glucose Urine UA Negative (Normal); Ketones Urine Trace (Negative); Leukocyte Esterase Urine Negative (Negative); Nitrate Urine Negative (Negative); Protein Urine 1+ (Negative); Urine Appearance Clear (CLEAR); Urine Color Yellow (Yellow); pH Urine 5.5 (5-7)
[2024-10-05 23:21] LABS: Add Urine Microscopic? YES; Bacteria Urine None Seen /hpf; RBC Urine 0-2 /hpf (0-2); WBC Urine 0-5 /hpf (0-5)
[2024-10-05 23:39] LABS: Specific Gravity, Urine 1.085 (1.005-1.030)
[2024-10-06] VITALS: BP 163/79; PULSE 116; O2SAT 97
[2024-10-06 00:30] VITALS: BP 137/63; PULSE 120; O2SAT 95
[2024-10-06 01:00] VITALS: BP 135/99; PULSE 111; O2SAT 97
[2024-10-06 02:18] LABS: Adenovirus Not Detected (NOT DETECT); Chlamydia Pneumoniae Not Detected (NOT DETECT); Coronavirus 229E,HKU1,NL63,OC4 Not Detected (NOT DETECT); Human Metapneumovirus Not Detected (NOT DETECT); Human Rhinovirus/Enterovirus Not Detected (NOT DETECT); Influenza A Not Detected (NOT DETECT); Influenza A H1 Not Detected (NOT DETECT); Influenza A H1-2009 Not Detected (NOT DETECT); Influenza A H3 Not Detected (NOT DETECT); Influenza B Not Detected (NOT DETECT); Mycoplasma Pneumoniae Not Detected (NOT DETECT); Parainfluenza Virus Type 1 Not Detected (NOT DETECT); Parainfluenza Virus Type 2 Not Detected (NOT DETECT); Parainfluenza Virus Type 3 Not Detected (NOT DETECT); Parainfluenza Virus Type 4 Not Detected (NOT DETECT); Respiratory Syncytial Virus A Not Detected (NOT DETECT); Respiratory Syncytial Virus B Not Detected (NOT DETECT); SARS-COV-2 Not Detected (NOT DETECT)
--- NOTE | 2024-10-06 02:25 | W.ED.FALL ---
HPI - Fall General: Chief Complaint: Fall Stated Complaint: Fall, all over pain Time Seen by Provider: 10/05/24 21:20 History of Present Illness: Pt with a history of tardive dyskinesia presents after multiple falls at home, reporting generalized pain, particularly in the back, wrists, and hips. Pt describes falling backwards easily and notes that everything hurts. No history of stroke. Eyes noted to gaze left, which pt attributes to both examiner position and underlying condition. Pt lives alone and reports falling yesterday, but was not on the ground all night and was able to get into bed, though unable to reach the phone. Denies acute injury to hips on exam, but reports hand pain. Requests orange juice and ice water. No mention of loss of consciousness or other acute neurological symptoms. Emotional state is apologetic and somewhat distressed. Related Data Home Medications ?Medication ?Instructions ?Recorded ?Confirmed aspirin 81 mg tablet,delayed 81 mg PO QAM 08/27/23 09/23/24 release omeprazole 40 mg capsule,delayed 40 mg PO QAM 08/27/23 09/23/24 release peg 400-propylene glycol (PF) 0.4 1 drp ophthalmic (eye) QID PRN Dry 08/27/23 09/23/24 %-0.3 % eye drops in a dropperette Eyes (Systane (PF)) atorvastatin 80 mg tablet 80 mg PO QPM 09/16/23 09/23/24 ropinirole 0.5 mg tablet 0.5 mg PO BID 09/16/23 09/23/24 hydrocodone 7.5 mg-acetaminophen 1 tab PO Q5H PRN 01/14/24 09/23/24 325 mg tablet B6 1.7 mg-folic 400 mcg-B12 2.4 cap PO 09/23/24 09/23/24 [id number] oral capsule (Neuriva Plus Brain Performance) CBD Gummies 300mg daily PO 09/23/24 09/23/24 ascorbic acid (vitamin C) 500 mg mg PO 09/23/24 09/23/24 capsule cholecalciferol (vitamin D3) 50 50 mcg PO DAILY 09/23/24 09/23/24 mcg (2,000 unit) capsule coQ10 (ubiquinol) 100 mg capsule 200 mg PO BID 09/23/24 09/23/24 (Qunol Ron CoQ10) cranberry 15,00mg 1 tab PO DAILY 09/23/24 deutetrabenazine 24 mg 24 mg PO DAILY 09/23/24 09/23/24 tablet,extended release 24 hr (Austedo XR) meloxicam 7.5 mg tablet 7.5 mg PO DAILY 09/23/24 09/23/24 rzmrodgt-[id number] 4 mg-folic acid tab PO 09/23/24 09/23/24 200 mcg-vit K 25 mcg-lutein tablet (Centrum Minis Women 50 Plus) nervive Nerve Relief Supplement 1 tab PO DAILY 09/23/24 oxymetazoline 0.05 % nasal mist 2 spray intranasal Q12H PRN 09/23/24 09/23/24 (Afrin (oxymetazoline)) vitamins-lipotropics tablet 1 tab PO DAILY 09/23/24 09/23/24 Previous Rx's ?Medication ?Instructions ?Recorded Orthopedic shoes #1 ea 09/28/23 gabapentin 100 mg capsule 100 mg PO TID #270 caps 09/23/24 loratadine 10 mg tablet (Claritin) 10 mg PO DAILY #90 tabs 09/23/24 losartan 25 mg tablet 25 mg PO DAILY #100 tabs 09/26/24 prednisone 5 mg tablet See Rx Instructions PO DAILY #21 09/26/24 tabs clonidine HCl 0.1 mg tablet 0.1 mg PO BID PRN BP greater than 09/27/24 180/110 #60 tabs metoprolol succinate 50 mg 50 mg PO QAM #90 tabs 09/27/24 tablet,extended release 24 hr amlodipine 10 mg tablet 10 mg PO QAM #100 tabs 09/28/24 Allergies Allergy/AdvReac Type Severity Reaction Status Date / Time metronidazole Allergy Unknown ALGY-Rash Verified 09/23/24 13:27 No Known Drug Allergies Allergy Unknown Verified 09/23/24 13:27 [facility] ED PFSH: Medical History (Updated 10/06/24 @ 02:07 by Anupam Hamilton MD) HTN (hypertension) Altered mental status Acute hypoxemic respiratory failure Pneumonia Multiple falls Generalized weakness At risk for aspiration Dysphagia Physical deconditioning Neurologic gait disorder Demyelinating disease of central nervous system Restrictive lung disease Postoperative atrial fibrillation Currently on amiodarone. 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 Orthostatic hypotension Tardive dyskinesia DNR (do not resuscitate) Hypercholesterolemia Chronic obstructive pulmonary disease, unspecified Labyrinthitis Backache Bipolar affective disorder Arthropathy, unspecified RLS (restless legs syndrome) Sleep apnea Peripheral vertigo Irritable bowel syndrome Aortic stenosis, severe Surgical History (Updated 09/27/24 @ 14:26 by Evelyn Holloway DO) History of kyphoplasty L5 and S1 History of nasal surgery Status post aortic valve replacement with bioprosthetic valve History of abdominal hysterectomy H/O foot surgery H/O eye surgery H/O oral surgery Hx of cholecystectomy History of appendectomy Family History Other Hypertension Social History Smoking and tobacco/nicotine status: never used tobacco/nicotine Quit status (tobacco/nicotine): has quit using Year quit tobacco: 1979 Former quit date comment: 4-5 cigarettes per day X 6 months Second hand smoke exposure: No Alcohol intake: never Substance/Drug Use: never Caregiver/support person: Yes Lives independently: Yes Household members: none Housing: House Marital status: / Current occupational status: retired and disabled Pets and animals: Yes Pets & animals: dog(s) Do you think of yourself as: Straight/Heterosexual Current gender identity: Female Physical Exam Const: COMMON NORMALS: no acute distress HENMT: COMMON NORMALS: normocephalic and atraumatic HEAD & SCALP: normocephalic and atraumatic Eye: COMMON NORMALS: Equal, round and reactive pupils present, EOMs intact bilaterally and no scleral icterus PUPIL: Yes Equal, round and reactive pupils present Resp: COMMON NORMALS: normal respiratory effort and No retractions Cardio: COMMON NORMALS: regular rhythm and No murmurs present (Cardio); negative for regular rate (tachycardic) RATE: abnormal rate (tachycardic) RHYTHM: regular rhythm GI: COMMON NORMALS: Normal to inspection, nondistended, normoactive bowel sounds present, Soft to palpation and non-tender PALPATION: Yes Soft to palpation Extremity: OTHER: Mild pain with motion of the right hip. No obvious deformity or dislocation. Mild pain with motion of the left wrist and palpation of the left hand though there is no obvious swelling, deformity, or bruising. Neuro: OTHER: Chronic, unchanged choreiform motion of the arms and head and characteristic speech pattern changes due to tardive dyskinesia which she states are stable without any change. No lateralizing deficits to imply acute stroke. Skin: COMMON NORMALS: no rashes or lesions noted GENERAL SKIN EXAM: no rashes or lesions noted Course Vital Signs: Vital signs: Vital Signs Temperature 98.9 F 10/05/24 21:16 Pulse Rate 111 H 10/06/24 01:00 Respiratory Rate 18 10/05/24 21:16 Blood Pressure 135/99 10/06/24 01:00 Pulse Oximetry 97 10/06/24 01:00 Oxygen Delivery Me thod Room Air 10/05/24 22:24 MDM - Fall Medical Decision Making In summary, patient is a 79-year-old female from home where she lives alone who suffers from frequent falls likely stemming from her tardive dyskinesia. Fortunately there are no acute injuries found on imaging today. She has white blood cell count elevation with shift but I do not appreciate any infectious etiology precipitating the fall today. I offered her admission to the hospital and consideration for admission to a alf but she desires to go home with her dog. She states that she has paperwork in place to have a home health aide coming in and suspects this will start later this month. She knows that she is always welcome back in the emergency department if needed before then, but otherwise will be discharged home. I am concerned that she is a continues to be a fall risk, but she is of sound mind and chooses to go home of her own volition Lab Data 10/05/24 21:25 10/05/24 21:25 Radiology Impressions Chest/Abdomen/Pelvis CT 10/05/24 21:40 IMPRESSION: 1. Age indeterminate mild severity T12 inferior vertebral endplate compression fracture deformity. 2. Negative for acute intrathoracic injury. IMPRESSION: Negative for acute abdominopelvic pathology. Hand X-Ray 10/05/24 21:40 IMPRESSION: No acute findings. Head CT 10/05/24 21:40 IMPRESSION: No acute intracranial abnormality. Hip/Pelvis X-Ray 10/05/24 21:40 IMPRESSION: No acute displaced fracture or dislocation. Laboratory Results WBC 17.53 10^3/uL (3.29-11.43) H 10/05/24: RBC 5.36 10^6/uL (3.85-5.65) 10/05/24: Hgb 15.00 g/dL (11.27-16.99) 10/05/24: Hct 47.2 % (36-47) H 10/05/24: MCV 88.1 fl (85-98) 10/05/24: MCH 28.0 pg (27-33) 10/05/24: MCHC 31.8 g/dL (30-55) 10/05/24: RDW 14.4 % (12.1-15.1) 10/05/24: Plt Count 120 10^3/cmm (157-399) L 10/05/24: MPV 12.5 fL (7.4-10.4) H 10/05/24: Neut % (Auto) 79.7 % 10/05/24: Lymph % (Auto) 8.2 % 10/05/24: [place] % (Auto) 11.1 % 10/05/24: Eos % (Auto) 0.2 % 10/05/24: Baso % (Auto) 0.4 % 10/05/24: Neut # (Auto) 13.97 10^3/uL (1.8-7.7) H 10/05/24: Lymph # (Auto) 1.4 10^3/uL (0.8-4.8) 10/05/24: [place] # (Auto) 2.0 10^3/uL (0.2-0.9) H 10/05/24: Eos # (Auto) 0.0 10^3/uL (0.0-0.8) 10/05/24: Baso # (Auto) 0.1 10^3/uL (0.0-0.1) 10/05/24: Nucleated RBC % (auto) 0 % 10/05/24: Nucleated RBCs # 0.0 /100WBC 10/05/24: PT 14.40 SECONDS (12.1-14.9) 10/05/24: INR 1.05 (0.8-1.2) 10/05/24: APTT 25.8 SECONDS (23.9-36.7) 10/05/24: Sodium 138 mmol/L (136-145) 10/05/24: Potassium 4.2 mmol/L (3.5-5.1) 10/05/24: Chloride 98 mmol/L (98-107) 10/05/24: Carbon Dioxide 25 mmol/L (22-29) 10/05/24: Anion Gap 19.2 (5-19) H 10/05/24: BUN 23 mg/dL (8-23) 10/05/24: Creatinine 0.9 mg/dL (0.5-0.9) 10/05/24: GFR Calculation Not Reportable 10/05/24: Glucose 125 mg/dL (65-115) H 10/05/24: Calculated Osmolality 291 mOsm/kg (285-295) 10/05/24: Lactic Acid 1.2 mmol/L (0.5-2.2) 10/05/24: Calcium 9.2 mg/dL (8.5-10.5) 10/05/24: Total Bilirubin 1.1 mg/dL (0.15-1.2) 10/05/24: AST 22 U/L (0-32) 10/05/24: ALT 13 U/L (0-33) 10/05/24: Alkaline Phosphatase 92 U/L (35-105) 10/05/24: Creatine Kinase 88 U/L (26-192) 10/05/24: Total Protein 7.5 g/dL (6.6-8.7) 10/05/24: Albumin 3.7 g/dL (3.5-5.2) 10/05/24: Globulin 3.8 g/dL (1.3-4.6) 10/05/24: Urine Color Yellow (Yellow) 10/05/24 Unknown Urine Appearance Clear (CLEAR) 10/05/24 Unknown Urine pH 5.5 (5-7) 10/05/24 Unknown Ur Specific [place] 1.085 (1.005-1.030) H 10/05/24 Unknown Urine Protein 1+ (Negative) A 10/05/24 Unknown Urine Glucose (UA) Negative (Normal) 10/05/24 Unknown Urine Ketones Trace (Negative) 10/05/24 Unknown Urine Blood Negative (Negative) 10/05/24 Unknown Urine Nitrate Negative (Negative) 10/05/24 Unknown Urine Bilirubin Negative (Negative) 10/05/24 Unknown Urine Urobilinogen 1.0 mg/dL (Negative) 10/05/24 Unknown Ur Leukocyte Esterase Negative (Negative) 10/05/24 Unknown Urine RBC 0-2 /hpf (0-2) 10/05/24 Unknown Urine WBC 0-5 /hpf (0-5) 10/05/24 Unknown Ur Squamous Epith Cells 6-10 /hpf (0-5) 10/05/24 Unknown Amorphous Sediment Not Reportable 10/05/24 Unknown Urine Bacteria None seen /hpf (NONE) 10/05/24 Unknown Hyaline Casts 0.40 /lpf 10/05/24 Unknown Adenovirus (PCR) Not detected (NOT DETECT) 10/06/24 00:09 C. pneumoniae DNA (PCR) Not detected (NOT DETECT) 10/06/24 00:09 Coronavirus 229E (PCR) Not detected (NOT DETECT) 10/06/24 00:09 Human Metapneumovir PCR Not detected (NOT DETECT) 10/06/24 00:09 Influenza A (H1) PCR Not detected (NOT DETECT) 10/06/24 00:09 Influ A (H1/09) PCR Not detected (NOT DETECT) 10/06/24 00:09 Influenza A (H3) PCR Not detected (NOT DETECT) 10/06/24 00:09 Influenza Type A (PCR) Not detected (NOT DETECT) 10/06/24 00:09 Influenza Type B (PCR) Not detected (NOT DETECT) 10/06/24 00:09 M. pneumoniae (PCR) Not detected (NOT DETECT) 10/06/24 00:09 Parainfluenza 1 (PCR) Not detected (NOT DETECT) 10/06/24 00:09 Parainfluenza 2 (PCR) Not detected (NOT DETECT) 10/06/24 00:09 Parainfluenza 3 (PCR) Not detected (NOT DETECT) 10/06/24 00:09 Parainfluenza 4 (PCR) Not detected (NOT DETECT) 10/06/24 00:09 RSV Type A (PCR) Not detected (NOT DETECT) 10/06/24 00:09 RSV Type B (PCR) Not detected (NOT DETECT) 10/06/24 00:09 Entero/Rhino (PCR) Not detected (NOT DETECT) 10/06/24 00:09 SARS-CoV-2 (PCR) Not detected (NOT DETECT) 10/06/24 00:09 All radiology interpretation(s) finalized by discharge EKG Data EKG 1: Interpretation: Time?2118?sinus tachycardia with infrequent PVCs, rate of 105, no ST segment elevation or depression, no T wave versions, QTc = 423 Discharge Plan Discharge Patient Disposition: Home Clinical Impression: Multiple falls, Left wrist sprain Condition: Stable Prescriptions: No Action meloxicam 7.5 mg tablet 7.5 mg PO DAILY vitamins-lipotropics Tablet 1 tab PO DAILY Afrin (oxymetazoline) 0.05 % mist 2 spray intranasal Q12H PRN cholecalciferol (vitamin D3) 50 mcg (2,000 unit) capsule 50 mcg PO DAILY coQ10 (ubiquinol) [Qunol Ron CoQ10] 100 mg capsule 200 mg PO BID ascorbic acid (vitamin C) 500 mg capsule PO Neuriva Plus Brain Performance 1.7 mg-400 mcg- 2.4 mcg capsule PO Austedo XR 24 mg tablet extended release 24 hr 24 mg PO DAILY Centrum Minis Women 50 Plus 4 mg iron-200 mcg-25 mcg tablet PO CBD Gummies 300mg daily PO cranberry 15,00mg 1 tab PO DAILY nervive Nerve Relief Supplement 1 tab PO DAILY loratadine [Claritin] 10 mg tablet 10 mg PO DAILY Qty: 90 1RF gabapentin 100 mg capsule 100 mg PO TID Qty: 270 1RF metoprolol succinate 50 mg tablet extended release 24 hr 50 mg PO QAM Qty: 90 1RF clonidine HCl 0.1 mg tablet 0.1 mg PO BID PRN (Reason: BP greater than 180/110) Qty: 60 1RF (DME) Orthopedic shoes See Rx Instructions .ROUTE .MEDSUPPLY Qty: 1 0RF Rx Instructions: With 3 pairs of inserts hydrocodone-acetaminophen 7.5-325 mg tablet 1 tab PO Q5H PRN prednisone 5 mg tablet See Rx Instructions PO DAILY Qty: 21 0RF Rx Instructions: Take one pill daily with food for two weeks, then 1/2 pill daily with food for two weeks, then stop losartan 25 mg tablet 25 mg PO DAILY Qty: 100 1RF amlodipine 10 mg tablet 10 mg PO QAM Qty: 100 1RF omeprazole 40 mg Capsule,Delayed Release(Dr/Ec) 40 mg PO QAM aspirin 81 mg Tablet,Delayed Release (Dr/Ec) 81 mg PO QAM Systane (PF) 0.4-0.3 % Dropperette 1 drp OPHTHALMIC (EYE) QID PRN (Reason: Dry Eyes) atorvastatin 80 mg Tablet 80 mg PO QPM ropinirole 0.5 mg Tablet 0.5 mg PO BID Discharge Orders: Discharge ED (Routine); Ordered 10/06/24 Ordered By: Anupam Hamilton Referrals: Evelyn Holloway DO [Primary Care Provider, Family Practice] Discharge Diet: Usual diet Discharge Activity: Increase activity as tolerated Patient Instructions: Fall Prevention (ED) Activity Restrictions/Additional Instructions: The best medication to keep your tardive dyskinesia symptoms at bay is Austedo. Please make sure to take it. Print Language: Luxembourgish Coding Level of Care Code ED [facility] for 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
[2024-10-06 04:00] VITALS: BP 160/85; PULSE 108; O2SAT 95
[2024-10-06 08:42] VITALS: BP 163/77; PULSE 105; O2SAT 97
== END 2024-10-06 08:44 | disposition home or self-care (01) ==
PROVIDERS: Emergency Provider Student in an Organized Health Care Education/Training Program; Family Provider Family Medicine; PCP Family Medicine
DX: S63.502A Unspecified sprain of left wrist, initial encounter (principal); W19.XXXA Unspecified fall, initial encounter; Z11.52 Encounter for screening for COVID-19; Z79.82 Long term (current) use of aspirin; M25.551 Pain in right hip; M79.641 Pain in right hand; M54.9 Dorsalgia, unspecified; I10 Essential (primary) hypertension
CPT/HCPCS: 36415; 70450; 71260; 73120; 73502; 74177; 80053; 81001; 82550; 83605; 85025; 85610; 85730; 87040; 87486; 87581; 87633; 93005; 96374; 99285; J2270

== ENCOUNTER 2024-10-07 18:29 | Inpatient (IN) | payer MEDICARE, MEDICAID, SELFPAY ==
[2024-10-07] VITALS (7 sets, daily range): BP systolic 94–176; BP diastolic 50–97; PULSE 92–102; RESP 26–30; TEMP 36.6; O2SAT 90–98; BMI 23.0
--- NOTE | 2024-10-07 18:35 | XRR_ITS ---
PROCEDURE INFORMATION: Exam: XR Chest Exam date and time: 10/07/2024 6:41 PM Age: 79 years old Clinical indication: Other: Weakness TECHNIQUE: Imaging protocol: Radiologic exam of the chest. Views: 1 view. COMPARISON: CT chest abdpel w/*[id number] 10/05/2024 10:06 PM FINDINGS: Lungs: Unremarkable. No consolidation. Pleural spaces: Unremarkable. No pleural effusion. No pneumothorax. Heart/Mediastinum: Heart normal in size. Unremarkable cardiomediastinal silhouette. Vasculature: Severe atherosclerotic calcification of the aortic arch without enlargement. Bones/joints: Prior sternotomy. Moderate bilateral shoulder degenerative osteoarthritis. No identified acute osseous abnormality. XR/XR chest 1V portable [id number] IMPRESSION: No visualized acute cardiopulmonary process.
--- NOTE | 2024-10-07 18:37 | W.ED.WEAKNES ---
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 She was here 2 nights ago after having multiple falls. She had an extensive workup at that time. Imaging was negative for head bleeds or other abnormalities at the time. Her sister called an ambulance because she cannot even get out of bed now and said she was going to turn off her phone and not answering she was not coming back to get her that she needed to be admitted. Patient is alert able to tell me her name and that she understands that her sister wants her to be admitted to the [facility]. Review of Systems General: Reports: ROS unobtainable due to medical condition PFS ED PFSH: Medical History (Updated 10/07/24 @ 21:06 by Lola Abreu MD) HTN (hypertension) Altered mental status Acute hypoxemic respiratory failure Pneumonia Multiple falls Generalized weakness At risk for aspiration Dysphagia Physical deconditioning Neurologic gait disorder Demyelinating disease of central nervous system Restrictive lung disease Postoperative atrial fibrillation Currently on amiodarone. 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 Orthostatic hypotension Tardive dyskinesia DNR (do not resuscitate) Hypercholesterolemia Chronic obstructive pulmonary disease, unspecified Labyrinthitis Backache Bipolar affective disorder Arthropathy, unspecified RLS (restless legs syndrome) Sleep apnea Peripheral vertigo Irritable bowel syndrome Aortic stenosis, severe Surgical History (Updated 09/27/24 @ 14:26 by Evelyn Holloway DO) History of kyphoplasty L5 and S1 History of nasal surgery Status post aortic valve replacement with bioprosthetic valve History of abdominal hysterectomy H/O foot surgery H/O eye surgery H/O oral surgery Hx of cholecystectomy History of appendectomy Family History Other Hypertension Social History Smoking and tobacco/nicotine status: never used tobacco/nicotine Quit status (tobacco/nicotine): has quit using Year quit tobacco: 1979 Former quit date comment: 4-5 cigarettes per day X 6 months Second hand smoke exposure: No Alcohol intake: never Substance/Drug Use: never Caregiver/support person: Yes Lives independently: Yes Household members: none Housing: House Marital status: / Current occupational status: retired and disabled Pets and animals: Yes Pets & animals: dog(s) Do you think of yourself as: Straight/Heterosexual Current gender identity: Female Physical Exam Narrative: EXAM NARRATIVE: General: Alert, no acute distress. Skin: Warm, dry. Head: Normocephalic, atraumatic. Neck: Supple, trachea midline. Eye: Extraocular movements are intact. Ears, nose, mouth and throat: Dry oral mucosa Cardiovascular: Regular, Normal peripheral perfusion. Respiratory: Coarse breath sounds, tachypneic. Gastrointestinal: Soft, Nontender, Non distended Musculoskeletal: Normal ROM, no deformity. Neurological: Alert, No new focal neurological deficit observed. Does have some facial droop. Psychiatric: Unable to assess Course Vital Signs: Vital signs: Vital Signs Temperature 97.8 F 10/07/24 18:30 Pulse Rate 98 10/07/24 21:00 Respiratory Rate 26 H 10/07/24 19:10 Blood Pressure 176/97 10/07/24 21:00 Pulse Oximetry 96 10/07/24 21:00 Oxygen Delivery Me thod Nasal Cannula 10/07/24 21:00 Oxygen Flow Rate 3 10/07/24 20:30 MDM - Weakness Medical Decision Making Medical decision making: Differential diagnosis for patient presenting with generalized weakness including but not limited to and based on the above HPI, review of systems and physical exam: Sepsis. Dehydration. Renal failure. Electrolyte abnormalities. Anemia. Congestive heart failure. Hypotension. Coronary syndrome. Hepatitis. Cirrhosis. Infections such as pneumonia, urinary tract infection, [place] illness, Cellulitis, Viral infections including influenza and Covid-19. Workup: labwork and lab/exam driven imaging ordered to evaluate, rule in and rule out above pathologies. Chest x-ray: No acute process. No infiltrate. No pneumothorax. This was reviewed and interpreted by myself the emergency room physician. I also reviewed the radiology report. Lab Review: Laboratory results were reviewed and interpreted by myself the emergency room physician. Mild leukocytosis. No anemia. Mean and creatinine are elevated over baseline at 39 and 1.3. This is fairly significant. I reviewed the patient's medical record. Reexamination: Patient was sleeping when I came in and very sonorous. Snoring. She does awake. She can tell me her name. She tells me yes whenever I speak to her about being admitted for possible [facility] admission. Follows basic commands. Consultation: I spoke with Dr. Lopez who is on-call for the hospitalist service who agrees to admission. Assessment and plan: Dehydration Renal failure Debility ?1 L normal saline bolus in the emergency room. -I discussed the patient with the hospitalist on-call who is admitting the patient. - Discussed findings and plan with patient. Answered any questions. - All laboratory values were reviewed and interpreted personally by myself, the ER physician - All imaging was reviewed and interpreted personally by myself, the ER physician. - Evaluation and treatment of this problem were appropriate in the emergency setting Lab Data 10/07/24 19:00 10/07/24 19:00 Radiology Impressions Chest X-Ray 10/07/24 18:35 IMPRESSION: No visualized acute cardiopulmonary process. Laboratory Results WBC 15.88 10^3/uL (3.29-11.43) H 10/07/24 19:00 RBC 4.65 10^6/uL (3.85-5.65) 10/07/24 19:00 Hgb 13.10 g/dL (11.27-16.99) 10/07/24 19:00 Hct 41.1 % (36-47) 10/07/24 19:00 MCV 88.4 fl (85-98) 10/07/24 19:00 MCH 28.2 pg (27-33) 10/07/24 19:00 MCHC 31.9 g/dL (30-55) 10/07/24 19:00 RDW 14.3 % (12.1-15.1) 10/07/24 19:00 Plt Count 134 10^3/cmm (157-399) L 10/07/24 19:00 MPV 11.7 fL (7.4-10.4) H 10/07/24 19:00 Neut % (Auto) 91.9 % 10/07/24 19:00 Lymph % (Auto) 3.1 % 10/07/24 19:00 [place] % (Auto) 4.5 % 10/07/24 19:00 Eos % (Auto) 0.0 % 10/07/24 19:00 Baso % (Auto) 0.1 % 10/07/24 19:00 Neut # (Auto) 14.58 10^3/uL (1.8-7.7) H 10/07/24 19:00 Lymph # (Auto) 0.5 10^3/uL (0.8-4.8) L 10/07/24 19:00 [place] # (Auto) 0.7 10^3/uL (0.2-0.9) 10/07/24 19:00 Eos # (Auto) 0.0 10^3/uL (0.0-0.8) 10/07/24 19:00 Baso # (Auto) 0.0 10^3/uL (0.0-0.1) 10/07/24 19:00 Nucleated RBC % (auto) 0 % 10/07/24 19:00 Nucleated RBCs # 0.0 /100WBC 10/07/24 19:00 Specimen Type Arterial 10/07/24 18:44 Sample Site Brachial, right 10/07/24 18:44 ABG pH 7.44 (7.35-7.45) 10/07/24 18:44 ABG pCO2 34.6 mmHg (35-45) L 10/07/24 18:44 ABG pO2 78.9 mmHg (80.0-100.0) L 10/07/24 18:44 ABG PO2/FiO2 Ratio 375 10/07/24 18:44 ABG HCO3 23.4 mmol/L (22-26) 10/07/24 18:44 ABG O2 Saturation 95.9 10/07/24 18:44 ABG Base Excess -0.3 mmol/L (-2.0-2.0) 10/07/24 18:44 Brian Test N/a 10/07/24 18:44 A-a O2 Gradient 3.4 mmHg (5-10) L 10/07/24 18:44 Hematocrit 40.9 % (37-47) 10/07/24 18:44 Hgb O2 Saturation 93.9 % (95-100) L 10/07/24 18:44 Carboxyhemoglobin 1.1 %THgb (0.4-20.1) 10/07/24 18:44 Methemoglobin 1.0 % (0.4-1.5) 10/07/24 18:44 Total Hemoglobin 13.3 g/dL (12-16) 10/07/24 18:44 Sodium 132.0 mmol/L (131-143) 10/07/24 18:44 Potassium 4.3 mmol/L (3.5-5.0) 10/07/24 18:44 Glucose 230.0 mg/dL (70-115) H 10/07/24 18:44 Ionized Calcium 1.2 mmol/L (1.1-1.4) 10/07/24 18:44 O2 Delivery Device Room air 10/07/24 18:44 FiO2 21.0 % 10/07/24 18:44 City Designer ID Amh 10/07/24 18:44 Sodium 135 mmol/L (136-145) L 10/07/24 19:00 Potassium 4.4 mmol/L (3.5-5.1) 10/07/24 19:00 Chloride 98 mmol/L (98-107) 10/07/24 19:00 Carbon Dioxide 21 mmol/L (22-29) L 10/07/24 19:00 Anion Gap 20.4 (5-19) H 10/07/24 19:00 BUN 39 mg/dL (8-23) H 10/07/24 19:00 Creatinine 1.3 mg/dL (0.5-0.9) H 10/07/24 19:00 GFR Calculation Not Reportable 10/07/24 19:00 Glucose 205 mg/dL (65-115) H 10/07/24 19:00 Calculated Osmolality 295 mOsm/kg (285-295) 10/07/24 19:00 Lactic Acid 2.2 mmol/L (0.5-2.2) 10/07/24 19:00 Calcium 8.7 mg/dL (8.5-10.5) 10/07/24 19:00 Total Bilirubin 0.5 mg/dL (0.15-1.2) 10/07/24 19:00 AST 20 U/L (0-32) 10/07/24 19:00 ALT 17 U/L (0-33) 10/07/24 19:00 Alkaline Phosphatase 104 U/L (35-105) 10/07/24 19:00 C-Reactive Protein 258.7 mg/L (0.0-4.9) H 10/07/24 19:00 NT-Pro-B Natriuret Pep 3194 pg/mL (0-450) H 10/07/24 19:00 Total Protein 6.8 g/dL (6.6-8.7) 10/07/24 19:00 Albumin 3.3 g/dL (3.5-5.2) L 10/07/24 19:00 Globulin 3.5 g/dL (1.3-4.6) 10/07/24 19:00 Procalcitonin 0.56 ng/mL (0-0.5) H 10/07/24 19:00 Urine Color Dark yellow (Yellow) A 10/07/24 19:00 Urine Appearance Clear (CLEAR) 10/07/24 19:00 Urine pH 5.0 (5-7) 10/07/24 19:00 Ur Specific [place] 1.039 (1.005-1.030) H 10/07/24 19:00 Urine Protein 1+ (Negative) A 10/07/24 19:00 Urine Glucose (UA) Negative (Normal) 10/07/24 19:00 Urine Ketones Trace (Negative) 10/07/24 19:00 Urine Blood Negative (Negative) 10/07/24 19:00 Urine Nitrate Negative (Negative) 10/07/24 19:00 Urine Bilirubin 1+ (Negative) H 10/07/24 19:00 Urine Urobilinogen 1.0 mg/dL (Negative) 10/07/24 19:00 Ur Leukocyte Esterase Trace (Negative) A 10/07/24 19:00 Urine RBC 0-2 /hpf (0-2) 10/07/24 19:00 Urine WBC 0-5 /hpf (0-5) 10/07/24 19:00 Ur Squamous Epith Cells 0-5 /hpf (0-5) 10/07/24 19:00 Amorphous Sediment Not Reportable 10/07/24 19:00 Urine Bacteria None seen /hpf (NONE) 10/07/24 19:00 Hyaline Casts 19.43 /lpf 10/07/24 19:00 All radiology interpretation(s) finalized by discharge Discharge Plan Discharge Patient Disposition: Admitted As Inpatient Clinical Impression: Dehydration, Debility, Acute renal failure Condition: Stable Coding Level of Care Code ED 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 Related Data Home Medications ?Medication ?Instructions ?Recorded ?Confirmed aspirin 81 mg tablet,delayed 81 mg PO QAM 08/27/23 09/23/24 release omeprazole 40 mg capsule,delayed 40 mg PO QAM 08/27/23 09/23/24 release peg 400-propylene glycol (PF) 0.4 1 drp ophthalmic (eye) QID PRN Dry 08/27/23 09/23/24 %-0.3 % eye drops in a dropperette Eyes (Systane (PF)) atorvastatin 80 mg tablet 80 mg PO QPM 09/16/23 09/23/24 ropinirole 0.5 mg tablet 0.5 mg PO BID 09/16/23 09/23/24 hydrocodone 7.5 mg-acetaminophen 1 tab PO Q5H PRN 01/14/24 09/23/24 325 mg tablet B6 1.7 mg-folic 400 mcg-B12 2.4 cap PO 09/23/24 09/23/24 fzw-bouzkh-zuxpnrmypbpj oral capsule (Neuriva Plus Brain Performance) CBD Gummies 300mg daily PO 09/23/24 09/23/24 ascorbic acid (vitamin C) 500 mg mg PO 09/23/24 09/23/24 capsule cholecalciferol (vitamin D3) 50 50 mcg PO DAILY 09/23/24 09/23/24 mcg (2,000 unit) capsule coQ10 (ubiquinol) 100 mg capsule 200 mg PO BID 09/23/24 09/23/24 (Qunol Ron CoQ10) cranberry 15,00mg 1 tab PO DAILY 09/23/24 deutetrabenazine 24 mg 24 mg PO DAILY 09/23/24 09/23/24 tablet,extended release 24 hr (Austedo XR) meloxicam 7.5 mg tablet 7.5 mg PO DAILY 09/23/24 09/23/24 vrbzlazy-ynb-goeg 4 mg-folic acid tab PO 09/23/24 09/23/24 200 mcg-vit K 25 mcg-lutein tablet (Centrum Minis Women 50 Plus) nervive Nerve Relief Supplement 1 tab PO DAILY 09/23/24 oxymetazoline 0.05 % nasal mist 2 spray intranasal Q12H PRN 09/23/24 09/23/24 (Afrin (oxymetazoline)) vitamins-lipotropics tablet 1 tab PO DAILY 09/23/24 09/23/24 Previous Rx's ?Medication ?Instructions ?Recorded Orthopedic shoes #1 ea 09/28/23 gabapentin 100 mg capsule 100 mg PO TID #270 caps 09/23/24 loratadine 10 mg tablet (Claritin) 10 mg PO DAILY #90 tabs 09/23/24 losartan 25 mg tablet 25 mg PO DAILY #100 tabs 09/26/24 prednisone 5 mg tablet See Rx Instructions PO DAILY #21 09/26/24 tabs clonidine HCl 0.1 mg tablet 0.1 mg PO BID PRN BP greater than 09/27/24 180/110 #60 tabs metoprolol succinate 50 mg 50 mg PO QAM #90 tabs 09/27/24 tablet,extended release 24 hr amlodipine 10 mg tablet 10 mg PO QAM #100 tabs 09/28/24 Allergies Allergy/AdvReac Type Severity Reaction Status Date / Time metronidazole Allergy Unknown ALGY-Rash Verified 09/23/24 13:27 No Known Drug Allergies Allergy Unknown Verified 09/23/24 13:27
[2024-10-07 18:55] LABS: ABG PCO2 34.6 mmHg (35-45); ABG PH Result 7.44 (7.35-7.45); Alveolar-Arterial Oxygen Gradi 3.4 mmHg (5-10); Arterial Blood Gas Hematocrit 40.9 % (37-47); Base Excess ABG -0.3 mmol/L (-2.0-2.0); Blood Gas Operator Identificat AMH; Blood Gas Sample Site Brachial, right; Blood Gas Sample Type Arterial; Carboxyhemoglobin 1.1 %THgb (0.4-20.1); HCO3 ABG 23.4 mmol/L (22-26); HGB O2 Sat 93.9 % (95-100); Ionized Calcium Level - ABG 1.2 mmol/L (1.1-1.4); Oxygen Device ROOM AIR; Oxygen Saturation ABG 95.9; PO2 ABG 78.9 mmHg (80.0-100.0); PO2 FiO2 Ratio Arterial Blood 375; Potassium Level - ABG 4.3 mmol/L (3.5-5.0); Total Hemoglobin 13.3 g/dL (12-16)
[2024-10-07 19:14] LABS: Basophils % 0.1 %; Hematocrit 41.1 % (36-47); Lymphocytes # 0.5 10^3/uL (0.8-4.8); Lymphocytes % 3.1 %; Mean Corpuscular HGB Conc 31.9 g/dL (30-55); Mean Corpuscular Hemoglobin 28.2 pg (27-33); Mean Corpuscular Volume 88.4 fl (85-98); Mean Platelet Volume 11.7 fL (7.4-10.4); Monocytes # 0.7 10^3/uL (0.2-0.9); Monocytes % 4.5 %; Neutrophils # 14.58 10^3/uL (1.8-7.7); Neutrophils % 91.9 %; Nucleated Red Blood Cells % 0 %; Platelet Count 134 10^3/cmm (157-399); Red Blood Count 4.65 10^6/uL (3.85-5.65); Red Cell Distribution Width 14.3 % (12.1-15.1); White Blood Count 15.88 10^3/uL (3.29-11.43)
[2024-10-07 19:15] LABS: Bilirubin Urine 1+ (Negative); Blood Urine Negative (Negative); Glucose Urine UA Negative (Normal); Ketones Urine Trace (Negative); Leukocyte Esterase Urine Trace (Negative); Nitrate Urine Negative (Negative); Protein Urine 1+ (Negative); Urine Appearance Clear (CLEAR); Urine Color Dark Yellow (Yellow)
[2024-10-07 19:17] LABS: Bacteria Urine None Seen /hpf; Hyaline Casts Urine 19.43 /lpf; RBC Urine 0-2 /hpf (0-2); Squamous Epithelial Cell Urine 0-5 /hpf (0-5); Universal Test for UA Present (0); WBC Urine 0-5 /hpf (0-5)
[2024-10-07 19:34] LABS: Lactic Sepsis W/Reflex 2.2 mmol/L (0.5-2.2)
[2024-10-07 19:45] LABS: NT Pro B Type Natriuretic Pept 3194 pg/mL (0-450); Procalcitonin 0.56 ng/mL (0-0.5)
[2024-10-07 19:56] LABS: Alanine Aminotransferase 17 U/L (0-33); Albumin Level 3.3 g/dL (3.5-5.2); Alkaline Phosphatase 104 U/L (35-105); Anion Gap 20.4 (5-19); Aspartate Amino Transferase 20 U/L (0-32); Blood Urea Nitrogen 39 mg/dL (8-23); C Reactive Protein 258.7 mg/L (0.0-4.9); Calcium 8.7 mg/dL (8.5-10.5); Carbon Dioxide 21 mmol/L (22-29); Chloride 98 mmol/L (98-107); Globulin 3.5 g/dL (1.3-4.6); Glucose 205 mg/dL (65-115); Osmolality Calculated 295 mOsm/kg (285-295); Potassium 4.4 mmol/L (3.5-5.1); Sodium 135 mmol/L (136-145); Total Bilirubin 0.5 mg/dL (0.15-1.2); Total Protein 6.8 g/dL (6.6-8.7)
[2024-10-07 20:11] LABS: Specific Gravity, Urine 1.039 (1.005-1.030)
[2024-10-07 20:58] LABS: Reflex Lactate Order REFLEX LACTIC ORDERD
[2024-10-07] MEDS: sodium chloride 0.9% 1,000 ML 999 ML IV ×3 (21:10→23:37)
--- NOTE | 2024-10-07 21:49 | PM.HP ---
Providers/Chief Complaint Admitting Physician: Markos Lopez MD Primary Care Provider: Evelyn Holloway DO Chief Complaint: SOB/congestion History of Present Illness Nancy Brasher is a 79 year old female lives at home alone with her Jaclyn and was last seen on 10/05/2024. Patient states she has been weak and falling a lot. She had been walking down the matos and fell against the matos wall with her left elbow. She states she is in a lot of pain. She was seen on 10/05/2024 and recommended for admission and placement but she declined placement and wanted to get back home to her dog she had paperwork for home health aide. Today she was sent in by her sister Pearl who called ambulance and then said she was shutting off her phone and would not pick her up. Patient states that she typically lives alone but now cannot walk. She is found to have acute kidney injury with BUN 39 creatinine 1.3 white blood count 16,000 and dehydrated with concentrated urine. Patient states that she would be agreeable to placement at this time and will have her Jaclyn go to her [id number] for anticipated care. [id number] is Radha. Patient's Sister Pearl is visiting from [place] but will go home on Thursday. Review of Systems Narrative: General no fevers chills Cardiovascular denies chest pain or palpitations Respiratory positive for congestion and phlegm GI no nausea vomiting diarrhea no dysuria hematuria Musculoskeletal positive for pain mostly in her left elbow and shoulder Speech patient states that her speech is usually clear but it is not good today because her dentures are not fitting right Medications/Allergies Home Medications ?Medication ?Instructions ?Recorded ?Confirmed ?Last Taken ?Type aspirin 81 mg tablet,delayed 81 mg PO QAM 08/27/23 09/23/24 12/15/23 History release omeprazole 40 mg capsule,delayed 40 mg PO QAM 08/27/23 09/23/24 12/15/23 History release peg 400-propylene glycol (PF) 0.4 1 drp ophthalmic (eye) QID PRN Dry 08/27/23 09/23/24 09/03/23 History %-0.3 % eye drops in a dropperette Eyes (Systane (PF)) atorvastatin 80 mg tablet 80 mg PO QPM 09/16/23 09/23/24 12/15/23 History ropinirole 0.5 mg tablet 0.5 mg PO BID 09/16/23 09/23/24 12/15/23 History Orthopedic shoes #1 ea 09/28/23 09/23/24 Unknown Rx hydrocodone 7.5 mg-acetaminophen 1 tab PO Q5H PRN 01/14/24 09/23/24 Unknown History 325 mg tablet B6 1.7 mg-folic 400 mcg-B12 2.4 cap PO 09/23/24 09/23/24 Unknown History qev-vxmvzk-zvtlvxpceqmg oral capsule (Neuriva Plus Brain Performance) CBD Gummies 300mg daily PO 09/23/24 09/23/24 Unknown History ascorbic acid (vitamin C) 500 mg mg PO 09/23/24 09/23/24 Unknown History capsule cholecalciferol (vitamin D3) 50 50 mcg PO DAILY 09/23/24 09/23/24 Unknown History mcg (2,000 unit) capsule coQ10 (ubiquinol) 100 mg capsule 200 mg PO BID 09/23/24 09/23/24 Unknown History (Qunol Ron CoQ10) cranberry 15,00mg 1 tab PO DAILY 09/23/24 Unknown History deutetrabenazine 24 mg 24 mg PO DAILY 09/23/24 09/23/24 Unknown History tablet,extended release 24 hr (Austedo XR) gabapentin 100 mg capsule 100 mg PO TID #270 caps 09/23/24 09/23/24 Unknown Rx loratadine 10 mg tablet (Claritin) 10 mg PO DAILY #90 tabs 09/23/24 09/23/24 Unknown Rx meloxicam 7.5 mg tablet 7.5 mg PO DAILY 09/23/24 09/23/24 Unknown History wcmnczqf-djp-vqae 4 mg-folic acid tab PO 09/23/24 09/23/24 Unknown History 200 mcg-vit K 25 mcg-lutein tablet (Centrum Minis Women 50 Plus) nervive Nerve Relief Supplement 1 tab PO DAILY 09/23/24 Unknown History oxymetazoline 0.05 % nasal mist 2 spray intranasal Q12H PRN 09/23/24 09/23/24 Unknown History (Afrin (oxymetazoline)) vitamins-lipotropics tablet 1 tab PO DAILY 09/23/24 09/23/24 Unknown History losartan 25 mg tablet 25 mg PO DAILY #100 tabs 09/26/24 Unknown Rx prednisone 5 mg tablet See Rx Instructions PO DAILY #21 09/26/24 Unknown Rx tabs clonidine HCl 0.1 mg tablet 0.1 mg PO BID PRN BP greater than 09/27/24 09/27/24 Unknown Rx 180/110 #60 tabs metoprolol succinate 50 mg 50 mg PO QAM #90 tabs 09/27/24 09/27/24 Unknown Rx tablet,extended release 24 hr amlodipine 10 mg tablet 10 mg PO QAM #100 tabs 09/28/24 Unknown Rx Allergies Allergy/AdvReac Type Severity Reaction Status Date / Time metronidazole Allergy Unknown ALGY-Rash Verified 09/23/24 13:27 No Known Drug Allergies Allergy Unknown Verified 09/23/24 13:27 PFSH Acute PFSH: Medical History (Updated 10/07/24 @ 22:06 by Markos Loepz MD) HTN (hypertension) Altered mental status Acute hypoxemic respiratory failure Pneumonia Multiple falls Generalized weakness At risk for aspiration Dysphagia Physical deconditioning Neurologic gait disorder Demyelinating disease of central nervous system Restrictive lung disease Postoperative atrial fibrillation Currently on amiodarone. 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 Orthostatic hypotension Tardive dyskinesia DNR (do not resuscitate) Hypercholesterolemia Chronic obstructive pulmonary disease, unspecified Labyrinthitis Backache Bipolar affective disorder Arthropathy, unspecified RLS (restless legs syndrome) Sleep apnea Peripheral vertigo Irritable bowel syndrome Aortic stenosis, severe Surgical History (Updated 09/27/24 @ 14:26 by Evelyn Holloway DO) History of kyphoplasty L5 and S1 History of nasal surgery Status post aortic valve replacement with bioprosthetic valve History of abdominal hysterectomy H/O foot surgery H/O eye surgery H/O oral surgery Hx of cholecystectomy History of appendectomy Family History Other Hypertension Social History (Updated 10/07/24 @ 22:03 by Markos Lopez MD) Smoking and tobacco/nicotine status: never used tobacco/nicotine Quit status (tobacco/nicotine): has quit using Year quit tobacco: 1979 Former quit date comment: 4-5 cigarettes per day X 6 months Second hand smoke exposure: No Alcohol intake: never Substance/Drug Use: never Additional social history: Patient states she used CBD Gummies to lower her blood pressure. She lives alone with her Jaclyn. Her sister Pearl Hinton is her next of kin. 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 Patient wants DNR status as discussed today with Markos Lopez MD on 10/07/2024 Caregiver/support person: Yes Lives independently: Yes Household members: none Housing: House Marital status: / Current occupational status: retired and disabled Pets and animals: Yes Pets & animals: dog(s) Do you think of yourself as: Straight/Heterosexual Current gender identity: Female Vitals/I&O/Wt Last Vital Signs Temp 97.8 F 10/07/24 18:30 Pulse 96 10/07/24 21:30 Resp 26 H 10/07/24 19:10 BP 144/67 10/07/24 21:30 Pulse Ox 98 10/07/24 21:30 O2 Del Method Nasal Cannula 10/07/24 21:30 O2 Flow Rate 2 10/07/24 21:30 Weight last 48 hrs Weight 58.967 kg Physical Exam Narrative: General well-developed somnolent female in no acute cardiopulmonary distress she has mildly labored tachypneic breathing CV regular rate and rhythm with a 4/6 to 5/6 systolic ejection murmur best heard at the right upper sternal border Lungs moderately good air movement trace basilar crackles improved with deep breath Abdomen positive bowel tones soft nontender Calves no tenderness cords pretrip edema Oral Mallampati 1 uvula surgically absent. Upper and lower dentures and poor hygienic condition Neck supple Mentation she is alert and oriented to person place president Lico. She did know the exact date but when I told her it was the and she said it is Thursday the Neuro she is reasonably good historian but her speech is not clear Data 10/07/24 19:00 10/07/24 19:00 Micro: Microbiology 10/07/24 19:25 Blood Culture - Preliminary Blood SPECIMEN COLLECTED 10/07/24 19:00 Blood Culture - Preliminary Blood SPECIMEN COLLECTED A&P Assessment and plan (1) Acute renal failure: Patient with acute kidney injury and dehydration in the setting of known aortic stenosis of her bioprosthetic valve. Patient received 2 L saline and (2) Dehydration: 2 L of fluid (3) Multiple falls: Start PT and OT and likely will need placement (4) Left elbow pain: X-rays left shoulder and elbow. I do not see that those were done specifically but she did have chest x-ray and a CT of the chest that did not show obvious clavicle fracture (5) S/P AVR (aortic valve replacement): Patient needs repeat echo which will be done. It may be that her aortic stenosis is worsening patient replaced on telemetry due to PACs seen on EKG 10/05/2024 and recent falls PDMP PDMP Reviewed: Not Reviewed Attestations Medical Necessity Statement*: Patient is admitted to hospital with elevated white count, dehydration, acute kidney injury and valvular stenosis that will require greater than 2 midnights in hospital Coding Level of Care Code Acute Code for Chg Fwd Diagnoses Acute renal failure N17.9 Dehydration E86.0 Multiple falls R29.6 Left elbow pain M25.522 S/P AVR (aortic valve replacement) Z95.2 Time Spent (min) 70
--- NOTE | 2024-10-07 21:56 | XRR_ITS ---
PROCEDURE INFORMATION: Exam: XR Left Elbow Exam date and time: 10/07/2024 10:15 PM Age: 79 years old Clinical indication: C/O left elbow pain after recent multiple falls. ; Additional info: Persistent pain after fall TECHNIQUE: Imaging protocol: Radiologic exam of the left elbow. Views: 1 or 2 views. COMPARISON: CR (CHEST, ) 10/07/2024 10:12 PM FINDINGS: Bones/joints: Normal. Soft tissues: Normal. XR/XR elbow LT 2V [id number] IMPRESSION: No identified fracture or dislocation.
--- NOTE | 2024-10-07 21:56 | XRR_ITS ---
PROCEDURE INFORMATION: Exam: XR Left Shoulder Exam date and time: 10/07/2024 10:12 PM Age: 79 years old Clinical indication: C/O left shoulder pain after recent multiple falls. ; Additional info: Perisistent pain after fall TECHNIQUE: Imaging protocol: Radiologic exam of the left shoulder. Views: 2 or more views. COMPARISON: CR XR chest 1V portable [id number] 10/07/2024 6:41 PM FINDINGS: Bones/joints: No identified fracture. Joint spaces maintained given the single provided view. Prior sternotomy. Soft tissues: No significant focal soft tissue swelling. XR/XR shoulder LT 1V [id number] IMPRESSION: No identified fracture. Joint spaces maintained given the single provided view. Mild left shoulder degenerative osteoarthritis.
--- NOTE | 2024-10-07 22:17 | PC.NURSE ---
attempted report to med surg, nurse to callback. 2200.
[2024-10-07 22:22] LABS: Creatine Phosphokinase 120 U/L (26-192); Magnesium 2.5 mg/dL (1.7-2.3); Phosphorus 4.7 mg/dL (2.5-4.5); Thyroid Stimulating Hormone 0.62 uIU/mL (0.27-4.20)
[2024-10-07 22:59] LABS: Lactic Acid level (Lactate) 1.1 mmol/L (0.5-2.2)
[2024-10-07] MEDS: enoxaparin 40 mg/0.4 mL Syringe SUBCUT (23:37)
[2024-10-08] VITALS (9 sets, daily range): BP systolic 122–175; BP diastolic 57–75; PULSE 74–95; RESP 16–22; TEMP 36.3–36.9; O2SAT 96–99
[2024-10-08] MEDS: sodium chlor 0.9% + KCl 20 mEq 20 MEQ/1,000 ML BAG 100 MEQ IV (00:42)
[2024-10-08 05:27] LABS: Basophils % 0.1 %; Eosinophils % 0.1 %; Hematocrit 35.8 % (36-47); Lymphocytes # 1.1 10^3/uL (0.8-4.8); Lymphocytes % 7.5 %; Mean Corpuscular HGB Conc 31.3 g/dL (30-55); Mean Corpuscular Hemoglobin 28.4 pg (27-33); Mean Corpuscular Volume 90.9 fl (85-98); Mean Platelet Volume 11.2 fL (7.4-10.4); Monocytes # 1.1 10^3/uL (0.2-0.9); Monocytes % 7.9 %; Neutrophils # 11.68 10^3/uL (1.8-7.7); Nucleated Red Blood Cells % 0 %; Platelet Count 121 10^3/cmm (157-399); Red Blood Count 3.94 10^6/uL (3.85-5.65); Red Cell Distribution Width 14.2 % (12.1-15.1); White Blood Count 13.92 10^3/uL (3.29-11.43)
[2024-10-08] MEDS: amlodipine 10 mg Tablet PO (05:50)
[2024-10-08] MEDS: pantoprazole DR 40 mg Tablet PO (05:50)
[2024-10-08] MEDS: aspirin 81 mg EC Tablet PO (05:50)
[2024-10-08] MEDS: metoprolol succinate ER (24 HR) 50 mg Tablet PO (05:50)
[2024-10-08 05:55] LABS: Anion Gap 14.5 (5-19); Blood Urea Nitrogen 31 mg/dL (8-23); Calcium 7.7 mg/dL (8.5-10.5); Carbon Dioxide 20 mmol/L (22-29); Chloride 110 mmol/L (98-107); Glucose 127 mg/dL (65-115); Osmolality Calculated 298 mOsm/kg (285-295); Potassium 4.5 mmol/L (3.5-5.1); Sodium 140 mmol/L (136-145)
[2024-10-08] MEDS: ropinirole 1 mg Tablet 0.5 MG PO ×2 (09:14→18:04)
[2024-10-08] MEDS: meloxicam 7.5 mg tablet PO (09:14)
[2024-10-08] MEDS: cholecalciferol (vitamin D3) 1,000 unit Tablet 2000 UNIT PO (09:15)
[2024-10-08] MEDS: losartan 50 mg Tablet 25 MG PO (09:15)
[2024-10-08] MEDS: gabapentin 100 mg Capsule PO ×3 (09:16→21:19)
[2024-10-08] MEDS: loratadine 10 mg Tablet PO (09:16)
--- NOTE | 2024-10-08 11:30 | PC.CHAP ---
Pastoral Care Encounter/Spiritual Assessment Type of Contact [] Declined radio performer visit [] Patient/Family/Request visit [] Outpatient visit [] Follow-up visit [] Physician referral [] Code/Alert [x] Routine visit [] Staff referral [] Actively dying [x] Patient sleeping [] Family support [] [] Out of room [] Palliative care [] [] Receiving care in room [] Pre-surgical visit [] Trauma [] Long length of stay [] ICU visit [] Other: Relational/Emotional Strength [] Patient feels connected with others/family/visitors/staff [] Distress [] Loneliness/isolation [] Abandonment Spirituality of Patient [] Person of Maile [] Attends Protestant of their Maile [] Believes in Prayer [] Reads Bible or Restorationist materials [] There are Spiritual issues to be addressed Outdoor Adventure Guides Interventions [] Prayer [] Active listening [] Non-anxious presence [] Spiritual/emotional support [] Crisis/trauma care [] Spiritual counseling [] Bereavement support [] Provided bereavement packet [] Provided Bible/devotional materials [] Provided toy/stuffed animal, coloring book to patient or family member [] Provided Communion [] Anointing/[place] [] Salvation [] Completed spiritual assessment [] Other: Impact on Illness or Injury [] Angry [] Fearful [] Anxious [] Often cries [] Exhaustion [] Unable to work [] Unable to attend sabianist [] Unable to walk/stand [] Unable to read [] Unable to drive [] Unable to eat/drink [] Unable to sleep [] Unable to be with family [] Patient intubated [] Other: Summary Time spent with patient
--- NOTE | 2024-10-08 11:48 | PC.NURSE ---
Patient and Sister does not want pneumonia vaccine at this time. Promises patient will get when feeling better. Notified Dr. Alicea.
[2024-10-08] MEDS: piperacillin-tazobactam 3.375 GM in sodium chloride 0.9% (plus) 50 ML IV ×2 (12:18→18:03)
--- NOTE | 2024-10-08 14:08 | PM.PN ---
Subjective Subjective: Seen this morning. Sister at bedside. Patient came in as part of a wellness check that the sister had asked to do because she was unable to get a hold of her over the phone. Patient appears weak compared to prior and has lost 30 pounds in the last few months. It was also noted from her chart review that patient apparently had a PEG tube placed after stroke in September 2023 which was removed in October 2023 because patient was eating on her own and did not use the PEG at all. Patient states that she has been having difficulty swallowing for the last 5 years. Her dentures do not fit anymore. This may be secondary to deconditioning weight loss and regression of gumline. Patient sister states that she would be interested in placing Ms. Zimmerman into a nursing facility for rehab purposes. Sister carries power of senior billing consultant. Patient agreeable to the above. White count elevated procalcitonin elevated. Suspicion of aspiration event. Patient sister also states that patient has had history of an infection where PICC line had to be placed and she had prolonged antibiotics. I will do a thorough chart review to see whether this was endocarditis in the past or other blood-borne infection. Also seen by speech therapy this morning who states that patient would be safe to to be in an n.p.o. status. Recommending modified barium swallow which we will plan for Thursday. Vitals/I&O/Wt Last Vital Signs Temp 97.3 F L 10/08/24 11:41 Pulse 76 10/08/24 11:41 Resp 18 10/08/24 11:41 BP 122/65 10/08/24 11:41 Pulse Ox 98 10/08/24 11:41 O2 Del Method Nasal Cannula 10/08/24 11:41 O2 Flow Rate 2 10/08/24 08:00 10/07/24 10/08/24 10/08/24 22:59 06:59 14:59 Intake Total 1000 / 1000 2200 / 3200 360 / 360 Output Total 60 / 60 Balance 1000 / 1000 2140 / 3140 360 / 360 Weight last 48 hrs Weight 58.967 kg Weight 58.967 kg Weight 58.967 kg Weight 58.967 kg Physical Exam Narrative: General well-developed laying in bed at this time, appears deconditioned and weak. CV regular rate and rhythm, systolic murmur present Lungs moderately good air movement trace basilar crackles improved with deep breath Abdomen positive bowel tones soft nontender Calves no tenderness cords pretrip edema Neck supple Neuro: Mainly nonfocal, appears weak, speech not clear. She is alert and oriented. Data 10/08/24 04:53 10/08/24 04:53 Micro: Microbiology 10/07/24 19:25 Blood Culture - Preliminary Blood SPECIMEN COLLECTED 10/07/24 19:00 Blood Culture - Preliminary Blood SPECIMEN COLLECTED A&P Assessment and plan (1) Acute renal failure: Patient with acute kidney injury and dehydration in the setting of known aortic stenosis of her bioprosthetic valve. Patient received 2 L saline and (2) Dehydration: 2 L of fluid (3) Multiple falls: Start PT and OT and likely will need placement (4) Left elbow pain: X-rays left shoulder and elbow. I do not see that those were done specifically but she did have chest x-ray and a CT of the chest that did not show obvious clavicle fracture (5) S/P AVR (aortic valve replacement): Patient needs repeat echo which will be done. It may be that her aortic stenosis is worsening patient replaced on telemetry due to PACs seen on EKG 10/05/2024 and recent falls (6) Difficulty chewing due to dentures: (7) Neuroleptic-induced tardive dyskinesia: (8) Aspiration into airway: (9) Debility: Plan #Deconditioning #Severe protein calorie malnutrition #Multiple falls #Weight loss #Dysphagia #Aspiration pneumonia #Tardive dyskinesia - Patient was able to get up with physical therapy and take 2 steps. History states she is very surprised to see her sister get up. She also states that for her tardive dyskinesia she is on Austedo and they have brought the medication from home. I told her we will go ahead and keep that continued. ? Speech therapy evaluation appreciated. Patient to stay n.p.o. until barium swallow Thursday morning. ? From her history it is noted that she did have a PEG tube last year which was removed a month later because she did not use it. Secondary deconditioning regression of gums line, dentures not fitting and having significant dysphagia and having difficulty swallowing most likely secondary to a previous stroke with component of weakness deconditioning, patient may require PEG tube placement going forward. Will make this determination after modified barium swallow and see how patient does. ? Patient definitely shows signs of aspiration and will continue to treat for aspiration pneumonia. White count is elevated procalcitonin is elevated. Will place patient on Zosyn. C-reactive protein is elevated to 258. - Patient is a DNR/DNI ? Will have to hold oral home medications secondary to n.p.o. status. Patient is a very high aspiration risk. ? Will place on hydralazine 10 mg every 4 hours as needed for hypertension. ? Metoprolol 5 mg every 4 hours as needed may also be given ? Will need dietitian consult. Patient will need to increase her caloric intake daily. I believe her weight loss may be secondary to decreased caloric intake secondary to dysphagia. Patient endorses having choking episodes for last few years . - CT head 2 days ago in the emergency room was negative for an acute stroke. ? Patient would be unsafe to go home alone secondary to multiple falls tardive dyskinesia and a decline in recent months. ? I would recommend rehab at halfway facility at this time however will wait for official physical therapy evaluation going forward. ? Consult manager social services on Thursday. ? Discussed all the above with sister. ? Will check Occupational Therapy assessment DNR/DNI DVT prophylaxis: Lovenox 40 daily PDMP PDMP Reviewed: Not Reviewed Attestations Medical Necessity Statement*: Greater than 2 midnight stay for management of dysphagia multiple falls aspiration pneumonia. Diagnoses Acute renal failure N17.9 Dehydration E86.0 Multiple falls R29.6 Left elbow pain M25.522 S/P AVR (aortic valve replacement) Z95.2 Difficulty chewing due to dentures K08.89; Z97.2 Neuroleptic-induced tardive dyskinesia G24.01; T43.505A Aspiration into airway T17.908A Debility R53.81
--- NOTE | 2024-10-08 15:01 | PC.PHAR ---
i SPOKE TO pATIENT'S SISTER AND SHE ISN'T SURE OF SOME OF THE THINGS ON THE MED LIST. PHARMACIES ARE CLOSED SO, i AM UNABLE TO GET ANY MORE INFORMATION AT THIE TIME.
[2024-10-08] MEDS: lanolin oint 7 gm 1 APPLIC TOPICAL (18:04)
[2024-10-08] MEDS: hyDRALAzine 20 mg/mL INJ 1 mL 10 MG IVP (20:01)
--- NOTE | 2024-10-08 20:02 | PC.NURSE ---
parameter for hydralazine SBP>[address] Lopez
[2024-10-08] MEDS: atorvastatin 40 mg Tablet 80 MG PO (21:19)
--- NOTE | 2024-10-08 22:11 | USCV_ITS ---
Nancy Brasher Age: 79 Gender: F : 1945 Exam Date: 10/08/2024 16:15 Ordering Phys: Markos Lopez MD Technologist: Jeff Fairchild [place] [facility] [place]ication: ao stenosis and acute kidney injury BP: 148 / 63 HR: 79 Rhythm: Sinus Technical Quality: Adequate MEASUREMENTS (Male / Female) Normal Values 2D ECHO LV Diastolic Diameter PLAX 3.7 cm 4.2 - 5.9 / 3.9 - 5.3 cm IVS Diastolic Thickness 1.1 cm 0.6 - 1.0 / 0.6 - 0.9 cm IVS Systolic Thickness 1.9 cm LVPW Diastolic Thickness 1.7 cm 0.6 - 1.0 / 0.6 - 0.9 cm LVPW Systolic Thickness 2.0 cm LVOT Diameter 1.6 cm LV Ejection Fraction 2D Teich 68.2 % LV Ejection Fraction MOD 4C 71.7 % LV Ejection Fraction MOD 2C 67.0 % LV Ejection Fraction 2C AL 68.3 % LA Diameter 4.0 cm RA Systolic Volume 4C AL 26.1 ml RA Systolic Volume 4C MOD 25.8 ml LA Sys Volume AL 48.5 cm cubed LA Sys Volume Index AL 29.8 cm cubed/m squared Aorta at Sinotubular Diameter 1.8 cm IVC Diameter 1.8 cm M-MODE LA Ao Ratio MM 1.8 AV Cusp Separation MM 1.4 cm DOPPLER AV Peak Velocity 433.7 cm/s LVOT Peak Velocity 112.0 cm/s AV Area Cont Eq vti 0.5 cm squared AV Area Cont Eq pk 0.5 cm squared MV Peak Velocity 263.0 cm/s MV Area PHT 3.3 cm squared Mitral E to A Ratio 1.6 TV Peak Velocity 501.0 cm/s TR Peak Velocity 590.0 cm/s TR Peak Gradient 139.2 mmHg TR Mean Velocity 404.0 cm/s TR Mean Gradient 75.6 mmHg TR Velocity Time Integral 158.9 cm PV Peak Velocity 86.0 cm/s RV Ejection Time 0.3 s FINDINGS Left Ventricle Moderate left ventricular hypertrophy. No regional wall motion abnormalities. No regional wall motion abnormalities. Grade I/IV diastolic dysfunction (abnormal relaxation filling pattern), normal to mildly elevated filling pressures. Right Ventricle The right ventricle is normal in size and function. Right Atrium The right atrium is normal in size. Left Atrium Moderately increased left atrial size. Mitral Valve Moderate to heavy mitral annular calcification. Thickened mitral valve. Mild-moderate mitral valve regurgitation. The peak gradient across the mitral valve was 37 with a mean of 11 mmHg- suggesting severe mitral valve stenosis Aortic Valve Severe aortic valve stenosis, mean gradient 43.2 mmHg, EV 0.55 cm squared. Peak velocity of 4.4 m/s with a peak gradient of 79 and a mean gradient of 49 mmHg Tricuspid Valve Moderate valve regurgitation. Thickened tricuspid valve. Estimated pulmonary artery peak systolic pressure of 121 mmHg with a mean of 68 mmHg Pulmonic Valve Mild pulmonary valve regurgitation. Pericardium No pericardial effusion. Aorta Normal ascending aorta dimension. IVC Normal inferior vena cava. CONCLUSIONS Moderate left ventricular hypertrophy. No regional wall motion abnormalities. No regional wall motion abnormalities. Grade I/IV diastolic dysfunction (abnormal relaxation filling pattern), normal to mildly elevated filling pressures. Severe aortic valve stenosis( ? Bioprosthetic), mean gradient 43.2 mmHg, EV 0.55 cm squared. Peak velocity of 4.4 m/s with a peak gradient of 79 and a mean gradient of 49 mmHg. Moderate to heavy mitral annular calcification. Thickened mitral valve. Mild-moderate mitral valve regurgitation. The peak gradient across the mitral valve was 37 with a mean of 11 mmHg-suggesting severe mitral valve stenosis. Severe pulmonary hypertension. Estimated pulmonary artery peak systolic pressure of 121 mmHg with a mean of 68 mmHg. Moderate valve regurgitation. Thickened tricuspid valve. Mild pulmonary valve regurgitation. Compared to study from 12/17/2023, there is worsening of the aortic and mitral valve stenosis; worsening pulmonary hypertension Dr Zarina Pride MD [facility] (Electronically Signed) Final Date: 08 October 2024 19:05 S
--- NOTE | 2024-10-08 23:34 | PC.NURSE ---
pt alert and oriented, refused lovenox, educated about lovenox and how it is for reducing risk along with preventing blood clots. pt continue to refuse stated I don't want that .
[2024-10-09] MEDS: piperacillin-tazobactam 3.375 GM in sodium chloride 0.9% (plus) 50 ML IV ×3 (02:54→18:36)
[2024-10-09 03:29] LABS: Basophils # 0.1 10^3/uL (0.0-0.1); Basophils % 0.4 %; Eosinophils # 0.2 10^3/uL (0.0-0.8); Eosinophils % 1.2 %; Hematocrit 37.1 % (36-47); Lymphocytes % 7.8 %; Mean Corpuscular HGB Conc 30.7 g/dL (30-55); Mean Corpuscular Hemoglobin 27.8 pg (27-33); Mean Corpuscular Volume 90.5 fl (85-98); Mean Platelet Volume 11.1 fL (7.4-10.4); Monocytes # 1.2 10^3/uL (0.2-0.9); Monocytes % 9.6 %; Neutrophils # 10.14 10^3/uL (1.8-7.7); Neutrophils % 80.7 %; Nucleated Red Blood Cells % 0 %; Platelet Count 152 10^3/cmm (157-399); Red Cell Distribution Width 14.3 % (12.1-15.1); White Blood Count 12.56 10^3/uL (3.29-11.43)
[2024-10-09 04:00] VITALS: BP 96/57; PULSE 90; RESP 19; TEMP 36.8; O2SAT 97
[2024-10-09 04:01] LABS: Alanine Aminotransferase 15 U/L (0-33); Albumin Level 2.9 g/dL (3.5-5.2); Alkaline Phosphatase 92 U/L (35-105); Anion Gap 14.5 (5-19); Aspartate Amino Transferase 22 U/L (0-32); Blood Urea Nitrogen 22 mg/dL (8-23); Calcium 8.5 mg/dL (8.5-10.5); Carbon Dioxide 21 mmol/L (22-29); Chloride 109 mmol/L (98-107); Glucose 102 mg/dL (65-115); Magnesium 2.1 mg/dL (1.7-2.3); Osmolality Calculated 294 mOsm/kg (285-295); Potassium 4.5 mmol/L (3.5-5.1); Sodium 140 mmol/L (136-145); Total Bilirubin 0.4 mg/dL (0.15-1.2); Total Protein 5.9 g/dL (6.6-8.7)
[2024-10-09] MEDS: amlodipine 10 mg Tablet PO (05:29)
[2024-10-09] MEDS: pantoprazole DR 40 mg Tablet PO (05:29)
[2024-10-09 07:41] VITALS: BP 175/67; PULSE 93; RESP 20; TEMP 36.4; O2SAT 97
[2024-10-09] MEDS: gabapentin 100 mg Capsule PO ×3 (08:36→20:34)
[2024-10-09] MEDS: ropinirole 1 mg Tablet 0.5 MG PO ×2 (08:36→18:35)
[2024-10-09 11:30] VITALS: BP 154/72; PULSE 96; RESP 19; TEMP 36.4; O2SAT 98
--- NOTE | 2024-10-09 12:44 | P.PN_ITS ---
Subjective 2 Subjective: seen today laying in bed appearing comfortable on 3L NC sister at bedside wbc 12K npo after speech assessment, plan for MBS in Am Vitals/I&O/Wt Last Vital Signs Temp 97.6 F 10/09/24 11:30 Pulse 96 10/09/24 11:30 Resp 19 H 10/09/24 11:30 BP 154/72 10/09/24 11:30 Pulse Ox 98 10/09/24 11:30 O2 Del Method Nasal Cannula 10/09/24 11:30 O2 Flow Rate 2 10/09/24 08:00 10/08/24 10/09/24 10/09/24 22:59 06:59 14:59 Intake Total 1100 / 1460 50 / 50 Output Total 575 / 575 375 / 950 Balance 525 / 885 -375 / 510 50 / 50 Weight last 48 hrs Weight 63.185 kg Weight 58.967 kg Weight 58.967 kg Weight 58.967 kg Weight 58.967 kg Physical Exam 2 Narrative: General well-developed laying in bed at this time, appears deconditioned and weak. CV regular rate and rhythm, systolic murmur present Lungs moderately good air movement trace basilar crackles improved with deep breath Abdomen positive bowel tones soft nontender Calves no tenderness cords pretrip edema Neck supple Neuro: Mainly nonfocal, appears weak, speech not clear. She is alert and oriented. Urinary Catheter Management: Mccabe: Cath Placed During This Visit: yes Reason for Continuing Indwelling Catheter: Acute Urinary Retention or Obstruction Urinary Catheter Date of Insertion: 10/08/24 Urinary Catheter Time of Insertion: 20:30 Data 10/09/24 02:33 10/09/24 02:33 Micro: Microbiology 10/07/24 19:25 Blood Culture - Preliminary Blood NEGATIVE TO DATE 10/07/24 19:00 Blood Culture - Preliminary Blood NEGATIVE TO DATE A&P Assessment and plan (1) Acute renal failure: Patient with acute kidney injury and dehydration in the setting of known aortic stenosis of her bioprosthetic valve. Patient received 2 L saline and (2) Dehydration: 2 L of fluid (3) Multiple falls: Start PT and OT and likely will need placement (4) Left elbow pain: X-rays left shoulder and elbow. I do not see that those were done specifically but she did have chest x-ray and a CT of the chest that did not show obvious clavicle fracture (5) S/P AVR (aortic valve replacement): Patient needs repeat echo which will be done. It may be that her aortic stenosis is worsening patient replaced on telemetry due to PACs seen on EKG 10/05/2024 and recent falls (6) Difficulty chewing due to dentures: (7) Neuroleptic-induced tardive dyskinesia: (8) Aspiration into airway: (9) Debility: Plan #Deconditioning #Severe protein calorie malnutrition #Multiple falls #Weight loss #Dysphagia #Aspiration pneumonia #Tardive dyskinesia - Patient was able to get up with physical therapy and take 2 steps. History states she is very surprised to see her sister get up. She also states that for her tardive dyskinesia she is on Austedo and they have brought the medication from home. I told her we will go ahead and keep that continued. ? Speech therapy evaluation appreciated. Patient to stay n.p.o. until barium swallow Thursday morning. ? From her history it is noted that she did have a PEG tube last year which was removed a month later because she did not use it. Secondary deconditioning regression of gums line, dentures not fitting and having significant dysphagia and having difficulty swallowing most likely secondary to a previous stroke with component of weakness deconditioning, patient may require PEG tube placement going forward. Will make this determination after modified barium swallow and see how patient does. ? Patient definitely shows signs of aspiration and will continue to treat for aspiration pneumonia. White count is elevated procalcitonin is elevated. Will place patient on Zosyn. C-reactive protein is elevated to 258. - Patient is a DNR/DNI ? Will have to hold oral home medications secondary to n.p.o. status. Patient is a very high aspiration risk. ? Will place on hydralazine 10 mg every 4 hours as needed for hypertension. ? Metoprolol 5 mg every 4 hours as needed may also be given ? Will need dietitian consult. Patient will need to increase her caloric intake daily. I believe her weight loss may be secondary to decreased caloric intake secondary to dysphagia. Patient endorses having choking episodes for last few years . - CT head 2 days ago in the emergency room was negative for an acute stroke. ? Patient would be unsafe to go home alone secondary to multiple falls tardive dyskinesia and a decline in recent months. ? I would recommend rehab at residential facility at this time however will wait for official physical therapy evaluation going forward. ? Consult social media editor on Thursday. ? Discussed all the above with sister. ? Will check Occupational Therapy assessment DNR/DNI DVT prophylaxis: Lovenox 40 daily 10/09/2024 continue to keep NPO MBS in am continue zosyn for aspiration pna continue O2 and wean as able to check OT/PT echo pending strict NPO status PDMP PDMP Reviewed: Not Reviewed Attestations 2 Medical Necessity Statement*: Greater than 2 midnight stay for management of dysphagia multiple falls aspiration pneumonia. Diagnoses Acute renal failure N17.9 Dehydration E86.0 Multiple falls R29.6 Left elbow pain M25.522 S/P AVR (aortic valve replacement) Z95.2 Difficulty chewing due to dentures K08.89; Z97.2 Neuroleptic-induced tardive dyskinesia G24.01; T43.505A Aspiration into airway T17.908A Debility R53.81
[2024-10-09 15:58] VITALS: BP 154/75; PULSE 104; RESP 19; TEMP 36.5; O2SAT 98
[2024-10-09 19:39] VITALS: BP 155/72; PULSE 90; RESP 19; TEMP 36.4; O2SAT 96
[2024-10-09] MEDS: fluticasone nasal spray 16gm Btl 2 SPRAY NASAL (23:09)
[2024-10-09 23:47] VITALS: BP 155/61; PULSE 87; RESP 22; TEMP 36.4; O2SAT 98
[2024-10-10] MEDS: piperacillin-tazobactam 3.375 GM in sodium chloride 0.9% (plus) 50 ML IV ×3 (02:44→18:53)
[2024-10-10 03:12] LABS: Basophils # 0.1 10^3/uL (0.0-0.1); Basophils % 0.6 %; Eosinophils # 0.2 10^3/uL (0.0-0.8); Eosinophils % 2.6 %; Hematocrit 35.3 % (36-47); Lymphocytes % 12.2 %; Mean Corpuscular HGB Conc 31.7 g/dL (30-55); Mean Corpuscular Hemoglobin 28.8 pg (27-33); Mean Corpuscular Volume 90.7 fl (85-98); Mean Platelet Volume 10.8 fL (7.4-10.4); Monocytes # 0.9 10^3/uL (0.2-0.9); Neutrophils # 6.11 10^3/uL (1.8-7.7); Neutrophils % 73.2 %; Nucleated Red Blood Cells % 0 %; Platelet Count 149 10^3/cmm (157-399); Red Blood Count 3.89 10^6/uL (3.85-5.65); Red Cell Distribution Width 14.1 % (12.1-15.1); White Blood Count 8.35 10^3/uL (3.29-11.43)
[2024-10-10 03:33] LABS: Alanine Aminotransferase 11 U/L (0-33); Albumin Level 2.6 g/dL (3.5-5.2); Alkaline Phosphatase 80 U/L (35-105); Anion Gap 17.4 (5-19); Aspartate Amino Transferase 23 U/L (0-32); Blood Urea Nitrogen 17 mg/dL (8-23); Calcium 8.5 mg/dL (8.5-10.5); Carbon Dioxide 22 mmol/L (22-29); Chloride 108 mmol/L (98-107); Globulin 3.1 g/dL (1.3-4.6); Glucose 80 mg/dL (65-115); Osmolality Calculated 297 mOsm/kg (285-295); Potassium 4.4 mmol/L (3.5-5.1); Sodium 143 mmol/L (136-145); Total Bilirubin 0.4 mg/dL (0.15-1.2); Total Protein 5.7 g/dL (6.6-8.7)
[2024-10-10 03:46] VITALS: BP 158/72; PULSE 83; RESP 20; TEMP 36.5; O2SAT 97
[2024-10-10] MEDS: pantoprazole DR 40 mg Tablet PO (05:50)
[2024-10-10] MEDS: amlodipine 10 mg Tablet PO (05:50)
[2024-10-10 07:20] VITALS: BP 192/82; PULSE 92; RESP 20; TEMP 36.6; O2SAT 96
[2024-10-10] MEDS: ropinirole 1 mg Tablet 0.5 MG PO ×2 (08:08→17:59)
[2024-10-10] MEDS: gabapentin 100 mg Capsule PO ×3 (08:08→20:27)
[2024-10-10] MEDS: hyDRALAzine 20 mg/mL INJ 1 mL 10 MG IVP (08:09)
--- NOTE | 2024-10-10 08:21 | XRR_ITS ---
PROCEDURE INFORMATION: Exam: XR Chest Exam date and time: 10/10/2024 9:55 AM Age: 79 years old Clinical indication: Shortness of breath; Additional info: Follow up TECHNIQUE: Imaging protocol: Radiologic exam of the chest. Views: 1 view. COMPARISON: CR XR chest 1V portable [id number] 10/07/2024 6:41 PM FINDINGS: Lungs: Unremarkable. No consolidation. Pleural spaces: Unremarkable. No pleural effusion. No pneumothorax. Heart/Mediastinum: Unremarkable. No cardiomegaly. Bones/joints: Nothing acute. No change. Other findings: Stable surgical changes. XR/XR chest 1V portable [id number] IMPRESSION: No acute disease.
[2024-10-10 09:17] VITALS: BP 132/67
--- NOTE | 2024-10-10 09:30 | FL_ITS ---
WS: [id number] MODIFIED BARIUM SWALLOW HISTORY: Oral dysphagia FLUOROSCOPY TIME: 2min [id number] # of spot films: 1 Modified barium swallow was performed by the speech pathologist. Fluoroscopy was provided with the patient in a lateral projection. Multiple food consistencies were provided. Silent aspiration with associated laryngeal penetration noted with the thinner liquids. Improved with honey consistency with only minimal penetration evident. Patient swallowed all food consistencies with only minimal residual. Patient swallowed the barium tablet without difficulty. FL/FL barium swallow modifd [id number] IMPRESSION: 1. Silent aspiration and associated laryngeal penetration noted with the thinn er and slightly thickened liquids. Improved with solid and honey consistency. Please see speech therapist report also for recommendations.
--- NOTE | 2024-10-10 10:13 | PC.SOCIAL ---
IMM Update pg 2 of IMM Updated and reviewed w/ patient. Copy provided. Copy dated, initialed and placed in chart.
--- NOTE | 2024-10-10 11:28 | PC.NUTR ---
If PEG tube is placed, recommend continuous Jevity 1.5 beginning @15mls/hr, increasing 10mls Q4-8H as tolerated to goal rate of 35mls/hr with FWF 100mls Q4H or per MD discretion. After continuous tolerated, switch to bolus feeds Jevity 1.5, 240ml (1 carton), 3 cartons/day. 8am: 1 carton or 240mls 1pm: 1 carton or 240mls 6pm: 1 carton or 240mls Before and after bolus feed, 60mls FWF.
[2024-10-10 11:35] VITALS: BP 129/67; PULSE 103; RESP 20; TEMP 36.6; O2SAT 93
--- NOTE | 2024-10-10 11:47 | P.PN_ITS ---
Subjective 2 Subjective: seen this am going for mbs today Vitals/I&O/Wt Last Vital Signs Temp 97.9 F 10/10/24 11:35 Pulse 103 H 10/10/24 11:35 Resp 20 H 10/10/24 11:35 BP 129/67 10/10/24 11:35 Pulse Ox 93 10/10/24 11:35 O2 Del Method Nasal Cannula 10/10/24 11:35 O2 Flow Rate 2 10/10/24 08:00 10/09/24 10/10/24 10/10/24 22:59 06:59 14:59 Intake Total 50 / 150 50 / 200 Output Total 550 / 550 300 / 850 Balance -500 / -400 -250 / -650 Weight last 48 hrs Weight 63.367 kg Weight 63.185 kg Physical Exam 2 Narrative: General well-developed laying in bed at this time, appears deconditioned and weak. CV regular rate and rhythm, systolic murmur present Lungs moderately good air movement trace basilar crackles improved with deep breath Abdomen positive bowel tones soft nontender Calves no tenderness cords pretrip edema Neck supple Neuro: Mainly nonfocal, appears weak, speech not clear. She is alert and oriented. Urinary Catheter Management: Mccabe: Cath Placed During This Visit: yes Reason for Continuing Indwelling Catheter: Acute Urinary Retention or Obstruction Urinary Catheter Date of Insertion: 10/08/24 Urinary Catheter Time of Insertion: 20:30 Data 10/10/24 02:25 10/10/24 02:25 A&P Assessment and plan (1) Acute renal failure: Patient with acute kidney injury and dehydration in the setting of known aortic stenosis of her bioprosthetic valve. Patient received 2 L saline and (2) Dehydration: 2 L of fluid (3) Multiple falls: Start PT and OT and likely will need placement (4) Left elbow pain: X-rays left shoulder and elbow. I do not see that those were done specifically but she did have chest x-ray and a CT of the chest that did not show obvious clavicle fracture (5) S/P AVR (aortic valve replacement): Patient needs repeat echo which will be done. It may be that her aortic stenosis is worsening patient replaced on telemetry due to PACs seen on EKG 10/05/2024 and recent falls (6) Difficulty chewing due to dentures: (7) Neuroleptic-induced tardive dyskinesia: (8) Aspiration into airway: (9) Debility: Plan #Deconditioning #Severe protein calorie malnutrition #Multiple falls #Weight loss #Dysphagia #Aspiration pneumonia #Tardive dyskinesia - Patient was able to get up with physical therapy and take 2 steps. History states she is very surprised to see her sister get up. She also states that for her tardive dyskinesia she is on Austedo and they have brought the medication from home. I told her we will go ahead and keep that continued. ? Speech therapy evaluation appreciated. Patient to stay n.p.o. until barium swallow Thursday morning. ? From her history it is noted that she did have a PEG tube last year which was removed a month later because she did not use it. Secondary deconditioning regression of gums line, dentures not fitting and having significant dysphagia and having difficulty swallowing most likely secondary to a previous stroke with component of weakness deconditioning, patient may require PEG tube placement going forward. Will make this determination after modified barium swallow and see how patient does. ? Patient definitely shows signs of aspiration and will continue to treat for aspiration pneumonia. White count is elevated procalcitonin is elevated. Will place patient on Zosyn. C-reactive protein is elevated to 258. - Patient is a DNR/DNI ? Will have to hold oral home medications secondary to n.p.o. status. Patient is a very high aspiration risk. ? Will place on hydralazine 10 mg every 4 hours as needed for hypertension. ? Metoprolol 5 mg every 4 hours as needed may also be given ? Will need dietitian consult. Patient will need to increase her caloric intake daily. I believe her weight loss may be secondary to decreased caloric intake secondary to dysphagia. Patient endorses having choking episodes for last few years . - CT head 2 days ago in the emergency room was negative for an acute stroke. ? Patient would be unsafe to go home alone secondary to multiple falls tardive dyskinesia and a decline in recent months. ? I would [facility] at [facility] time however will wait for official physical therapy evaluation going forward. ? Consult director of social work on Thursday. ? Discussed all the above with sister. ? Will check Occupational Therapy assessment DNR/DNI DVT prophylaxis: Lovenox 40 daily 10/09/2024 continue to keep NPO MBS in am continue zosyn for aspiration pna continue O2 and wean as able to check OT/PT echo pending strict NPO status 10/10/2024 echo shows: Moderate left ventricular hypertrophy. No regional wall motion abnormalities. No regional wall motion abnormalities. Grade I/IV diastolic dysfunction (abnormal relaxation filling pattern), normal to mildly elevated filling pressures. Severe aortic valve stenosis( ? Bioprosthetic), mean gradient 43.2 mmHg, EV 0.55 cm squared. Peak velocity of 4.4 m/s with a peak gradient of 79 and a mean gradient of 49 mmHg. Moderate to heavy mitral annular calcification. Thickened mitral valve. Mild-moderate mitral valve regurgitation. The peak gradient across the mitral valve was 37 with a mean of 11 mmHg-suggesting severe mitral valve stenosis. Severe pulmonary hypertension. Estimated pulmonary artery peak systolic pressure of 121 mmHg with a mean of 68 mmHg. Moderate valve regurgitation. Thickened tricuspid valve. Mild pulmonary valve regurgitation. Compared to study from 12/17/2023, there is worsening of the aortic and mitral valve stenosis; worsening pulmonary hypertension pt is on 2L NC, appears compensated, will discuss with cardiology. pt/ot discussed with pt regarding of getting peg put back in and she is agreeable if that is what she will need continue zosyn for asp pna, complete 7 day course PDMP PDMP Reviewed: Not Reviewed Attestations 2 Medical Necessity Statement*: Greater than 2 midnight stay for management of dysphagia multiple falls aspiration pneumonia. Diagnoses Acute renal failure N17.9 Dehydration E86.0 Multiple falls R29.6 Left elbow pain M25.522 S/P AVR (aortic valve replacement) Z95.2 Difficulty chewing due to dentures K08.89; Z97.2 Neuroleptic-induced tardive dyskinesia G24.01; T43.505A Aspiration into airway T17.908A Debility R53.81
[2024-10-10 16:16] VITALS: BP 150/50; PULSE 109; RESP 18; TEMP 36.7; O2SAT 100
[2024-10-10 20:00] VITALS: BP 191/60; PULSE 108; RESP 16; TEMP 36.9; O2SAT 99
[2024-10-10] MEDS: atorvastatin 40 mg Tablet 80 MG PO (20:27)
[2024-10-11] VITALS: BP 178/64; PULSE 96; RESP 16; TEMP 37.1; O2SAT 98
[2024-10-11] MEDS: piperacillin-tazobactam 3.375 GM in sodium chloride 0.9% (plus) 50 ML IV ×2 (03:01→11:37)
[2024-10-11 04:00] VITALS: BP 178/70; PULSE 99; RESP 16; TEMP 37; O2SAT 98
[2024-10-11] MEDS: pantoprazole DR 40 mg Tablet PO (05:30)
[2024-10-11] MEDS: aspirin 81 mg EC Tablet PO (05:30)
[2024-10-11] MEDS: amlodipine 10 mg Tablet PO (05:30)
[2024-10-11] MEDS: metoprolol succinate ER (24 HR) 50 mg Tablet PO (05:30)
[2024-10-11 06:49] LABS: Basophils % 0.6 %; Eosinophils # 0.3 10^3/uL (0.0-0.8); Eosinophils % 3.5 %; Hematocrit 36.4 % (36-47); Lymphocytes # 1.1 10^3/uL (0.8-4.8); Lymphocytes % 15.5 %; Mean Corpuscular HGB Conc 30.8 g/dL (30-55); Mean Corpuscular Hemoglobin 28.1 pg (27-33); Mean Corpuscular Volume 91.2 fl (85-98); Mean Platelet Volume 10.5 fL (7.4-10.4); Monocytes # 0.9 10^3/uL (0.2-0.9); Monocytes % 12.7 %; Neutrophils # 4.82 10^3/uL (1.8-7.7); Neutrophils % 67.3 %; Nucleated Red Blood Cells % 0 %; Platelet Count 179 10^3/cmm (157-399); Red Blood Count 3.99 10^6/uL (3.85-5.65); Red Cell Distribution Width 13.8 % (12.1-15.1); White Blood Count 7.16 10^3/uL (3.29-11.43)
[2024-10-11 07:14] LABS: Anion Gap 14.9 (5-19); Blood Urea Nitrogen 18 mg/dL (8-23); Carbon Dioxide 24 mmol/L (22-29); Chloride 108 mmol/L (98-107); Glucose 136 mg/dL (65-115); Osmolality Calculated 300 mOsm/kg (285-295); Potassium 3.9 mmol/L (3.5-5.1); Sodium 143 mmol/L (136-145)
[2024-10-11 07:39] VITALS: BP 129/75; PULSE 88; RESP 20; TEMP 36.6; O2SAT 97
[2024-10-11] MEDS: ropinirole 1 mg Tablet 0.5 MG PO (09:15)
[2024-10-11] MEDS: cholecalciferol (vitamin D3) 1,000 unit Tablet 2000 UNIT PO (09:15)
[2024-10-11] MEDS: gabapentin 100 mg Capsule PO ×2 (09:16→14:21)
[2024-10-11] MEDS: loratadine 10 mg Tablet PO (09:16)
--- NOTE | 2024-10-11 09:16 | PC.CHAP ---
Pastoral Care Encounter/Spiritual Assessment Type of Contact [] Declined fitting room maintenance mechanic visit [] Patient/Family/Request visit [] Outpatient visit [] Follow-up visit [] Physician referral [] Code/Alert [x] Routine visit [] Staff referral [] Actively dying [] Patient sleeping [x] Family support [] [] Out of room [] Palliative care [] [] Receiving care in room [] Pre-surgical visit [] Trauma [] Long length of stay [] ICU visit [] Other: Relational/Emotional Strength [x] Patient feels connected with others/family/visitors/staff [] Distress [] Loneliness/isolation [] Abandonment Spirituality of Patient [x] Person of Maile [] Attends Religious of their [place] [x] Believes in Prayer [] Reads Bible or Pentecostalism materials [] There are Spiritual issues to be addressed Scallop Binder Interventions [x] Prayer [x] Active listening [x] Non-anxious presence [x] Spiritual/emotional support [] Crisis/trauma care [] Spiritual counseling [] Bereavement support [] Provided bereavement packet [] Provided Bible/devotional materials [] Provided toy/stuffed animal, coloring book to patient or family member [] Provided Communion [] Anointing/[place] [] Salvation [x] Completed spiritual assessment [] Other: Impact on Illness or Injury [] Angry [] Fearful [] Anxious [] Often cries [] Exhaustion [] Unable to work [] Unable to attend christian [] Unable to walk/stand [] Unable to read [] Unable to drive [] Unable to eat/drink [] Unable to sleep [] Unable to be with family [] Patient intubated [] Other: Summary Time spent with patient 5 min
[2024-10-11 11:43] VITALS: BP 151/70; PULSE 97; RESP 18; O2SAT 99
--- NOTE | 2024-10-11 13:35 | PM.PN ---
Subjective Subjective: seen this am pt tolerating pureed diet really well on room air this morning denies cp, sob, says the food was delicious Vitals/I&O/Wt Last Vital Signs Temp 97.8 F 10/11/24 07:39 Pulse 97 10/11/24 11:43 Resp 18 10/11/24 11:43 BP 151/70 10/11/24 11:43 Pulse Ox 99 10/11/24 11:43 O2 Del Method Room Air 10/11/24 11:43 O2 Flow Rate 2 10/11/24 00:00 10/10/24 10/11/24 10/11/24 22:59 06:59 14:59 Intake Total 304.167 / 304.167 35.833 / 340.000 410 / 410 Output Total 200 / 200 200 / 400 Balance 104.167 / 104.167 -164.167 / -60.000 410 / 410 Weight last 48 hrs Weight 60.781 kg Weight 63.367 kg Physical Exam Narrative: General well-developed laying in bed at this time, sitting up in bed appearing well and comfortable CV regular rate and rhythm, systolic murmur present Lungs moderately good air movement, no crackles, wheezes or ronchi Abdomen positive bowel tones soft nontender Calves no tenderness cords pretrip edema Neck supple Neuro: Mainly nonfocal, appears weak, speech not clear. She is alert and oriented. Urinary Catheter Management: Mccabe: Cath Placed During This Visit: yes Reason for Continuing Indwelling Catheter: Acute Urinary Retention or Obstruction Urinary Catheter Date of Insertion: 10/08/24 Urinary Catheter Time of Insertion: 20:30 Data 10/11/24 05:52 10/11/24 05:52 A&P Assessment and plan (1) Acute renal failure: Patient with acute kidney injury and dehydration in the setting of known aortic stenosis of her bioprosthetic valve. Patient received 2 L saline and (2) Dehydration: 2 L of fluid (3) Multiple falls: Start PT and OT and likely will need placement (4) Left elbow pain: X-rays left shoulder and elbow. I do not see that those were done specifically but she did have chest x-ray and a CT of the chest that did not show obvious clavicle fracture (5) S/P AVR (aortic valve replacement): Patient needs repeat echo which will be done. It may be that her aortic stenosis is worsening patient replaced on telemetry due to PACs seen on EKG 10/05/2024 and recent falls (6) Difficulty chewing due to dentures: (7) Neuroleptic-induced tardive dyskinesia: (8) Aspiration into airway: (9) Debility: Plan #Deconditioning #Severe protein calorie malnutrition #Multiple falls #Weight loss #Dysphagia #Aspiration pneumonia #Tardive dyskinesia - Patient was able to get up with physical therapy and take 2 steps. History states she is very surprised to see her sister get up. She also states that for her tardive dyskinesia she is on Austedo and they have brought the medication from home. I told her we will go ahead and keep that continued. ? Speech therapy evaluation appreciated. Patient to stay n.p.o. until barium swallow Thursday morning. ? From her history it is noted that she did have a PEG tube last year which was removed a month later because she did not use it. Secondary deconditioning regression of gums line, dentures not fitting and having significant dysphagia and having difficulty swallowing most likely secondary to a previous stroke with component of weakness deconditioning, patient may require PEG tube placement going forward. Will make this determination after modified barium swallow and see how patient does. ? Patient definitely shows signs of aspiration and will continue to treat for aspiration pneumonia. White count is elevated procalcitonin is elevated. Will place patient on Zosyn. C-reactive protein is elevated to 258. - Patient is a DNR/DNI ? Will have to hold oral home medications secondary to n.p.o. status. Patient is a very high aspiration risk. ? Will place on hydralazine 10 mg every 4 hours as needed for hypertension. ? Metoprolol 5 mg every 4 hours as needed may also be given ? Will need dietitian consult. Patient will need to increase her caloric intake daily. I believe her weight loss may be secondary to decreased caloric intake secondary to dysphagia. Patient endorses having choking episodes for last few years . - CT head 2 days ago in the emergency room was negative for an acute stroke. ? Patient would be unsafe to go home alone secondary to multiple falls tardive dyskinesia and a decline in recent months. ? I would recommend rehab at shelter facility at this time however will wait for official physical therapy evaluation going forward. ? Consult high school social studies tutor on Thursday. ? Discussed all the above with sister. ? Will check Occupational Therapy assessment DNR/DNI DVT prophylaxis: Lovenox 40 daily 10/09/2024 continue to keep NPO MBS in am continue zosyn for aspiration pna continue O2 and wean as able to check OT/PT echo pending strict NPO status 10/10/2024 echo shows: Moderate left ventricular hypertrophy. No regional wall motion abnormalities. No regional wall motion abnormalities. Grade I/IV diastolic dysfunction (abnormal relaxation filling pattern), normal to mildly elevated filling pressures. Severe aortic valve stenosis( ? Bioprosthetic), mean gradient 43.2 mmHg, EV 0.55 cm squared. Peak velocity of 4.4 m/s with a peak gradient of 79 and a mean gradient of 49 mmHg. Moderate to heavy mitral annular calcification. Thickened mitral valve. Mild-moderate mitral valve regurgitation. The peak gradient across the mitral valve was 37 with a mean of 11 mmHg-suggesting severe mitral valve stenosis. Severe pulmonary hypertension. Estimated pulmonary artery peak systolic pressure of 121 mmHg with a mean of 68 mmHg. Moderate valve regurgitation. Thickened tricuspid valve. Mild pulmonary valve regurgitation. Compared to study from 12/17/2023, there is worsening of the aortic and mitral valve stenosis; worsening pulmonary hypertension pt is on 2L NC, appears compensated, will discuss with cardiology. 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
[2024-10-11 15:25] VITALS: BP 152/56; PULSE 92; RESP 21; TEMP 36.8; O2SAT 96
--- NOTE | 2024-10-11 15:38 | P.DS_ITS ---
Discharge Providers Date of Admission: 10/07/24 21:44 Date of Discharge: October 11, 2024 Attending Provider at Admission: Markos Lopez MD Attending Provider at Discharge: Gayle Alicea MD Primary Care Provider: Evelyn Holloway DO Diagnoses at Discharge Discharge Diagnosis (1) Acute renal failure: Status: Resolved (2) Dehydration: Status: Resolved (3) Multiple falls: Status: Acute (4) Left elbow pain: Status: Resolved (5) S/P AVR (aortic valve replacement): Status: Acute (6) Difficulty chewing due to dentures: Status: Acute (7) Neuroleptic-induced tardive dyskinesia: Status: Acute (8) Aspiration into airway: Status: Resolved (9) Debility: Status: Resolved Reason for Visit Reason for Visit: SOB/congestion Hospital Course Hospital Course Patient presented to the hospital with severe deconditioning and acute kidney injury in setting of dehydration. She does have severe protein calorie malnutrition. Patient does have a history of tardive dyskinesia. During hospitalization she was treated for aspiration pneumonia. Modified barium swallow was pursued and patient's diet was adjusted. She was seen by speech therapy several times. He had a PEG tube in the past however was removed because patient was not using it. She was finally able to do well with the thickened liquid diet. At this point was recommended rehab and was sent to nursing facility in stable condition. Patient's echo result was discussed with on-call actuary clerk and she was recommended to follow-up with them as an outpatient. Currently not in decompensated state. She was advised to stop her CBD Gummies. Augmentin was given at discharge to complete course for aspiration. Physical Exam Narrative: General well-developed laying in bed at this time, sitting up in bed appearing well and comfortable CV regular rate and rhythm, systolic murmur present Lungs moderately good air movement, no crackles, wheezes or ronchi Abdomen positive bowel tones soft nontender Calves no tenderness cords pretrip edema Neck supple Neuro: Mainly nonfocal, appears weak, speech not clear. She is alert and oriented. Urinary Catheter Management: Mccabe: Cath Placed During This Visit: yes Reason for Continuing Indwelling Catheter: Acute Urinary Retention or Obstruction Urinary Catheter Date of Insertion: 10/08/24 Urinary Catheter Time of Insertion: 20:30 Discharge Data Studies Completed and Pending Completed Studies During Hospitalization Category Date Time Status FL barium swallow modifd [id number] Routine Exams 10/10/24 09:30 Completed XR chest 1V portable [id number] Routine Exams 10/10/24 08:21 Completed XR chest 1V portable [id number] Stat Exams 10/07/24 18:35 Completed XR elbow LT 2V [id number] Routine Exams 10/07/24 21:56 Completed XR shoulder LT 1V [id number] Routine Exams 10/07/24 21:56 Completed CV. echo complete* [id number] Routine Ultrasound 10/08/24 22:11 Completed Pending at discharge Category Date Time Status Basic Metabolic Panel AM LABS Lab 10/12/24 04:00 Ordered Blood Culture Stat Lab 10/07/24 19:25 Results Complete Blood Count w/Auto AM LABS Lab 10/12/24 04:00 Ordered Magnesium AM LABS Lab 10/12/24 04:00 Ordered Radiology Impressions Elbow X-Ray 10/07/24 21:56 IMPRESSION: No identified fracture or dislocation. Shoulder X-Ray 10/07/24 21:56 IMPRESSION: No identified fracture. Joint spaces maintained given the single provided view. Mild left shoulder degenerative osteoarthritis. Chest X-Ray 10/10/24 08:21 IMPRESSION: No acute disease. Modified Barium Swallow 10/10/24 09:30 IMPRESSION: 1. Silent aspiration and associated laryngeal penetration noted with the thinner and slightly thickened liquids. Improved with solid and honey consistency. Please see speech therapist report also for recommendations. Laboratory Results WBC 7.16 10^3/uL (3.29-11.43) 10/11/24 05:52 RBC 3.99 10^6/uL (3.85-5.65) 10/11/24 05:52 Hgb 11.20 g/dL (11.27-16.99) L 10/11/24 05:52 Hct 36.4 % (36-47) 10/11/24 05:52 MCV 91.2 fl (85-98) 10/11/24 05:52 MCH 28.1 pg (27-33) 10/11/24 05:52 MCHC 30.8 g/dL (30-55) 10/11/24 05:52 RDW 13.8 % (12.1-15.1) 10/11/24 05:52 Plt Count 179 10^3/cmm (157-399) 10/11/24 05:52 MPV 10.5 fL (7.4-10.4) H 10/11/24 05:52 Neut % (Auto) 67.3 % 10/11/24 05:52 Lymph % (Auto) 15.5 % 10/11/24 05:52 [place] % (Auto) 12.7 % 10/11/24 05:52 Eos % (Auto) 3.5 % 10/11/24 05:52 Baso % (Auto) 0.6 % 10/11/24 05:52 Neut # (Auto) 4.82 10^3/uL (1.8-7.7) 10/11/24 05:52 Lymph # (Auto) 1.1 10^3/uL (0.8-4.8) 10/11/24 05:52 [place] # (Auto) 0.9 10^3/uL (0.2-0.9) 10/11/24 05:52 Eos # (Auto) 0.3 10^3/uL (0.0-0.8) 10/11/24 05:52 Baso # (Auto) 0.0 10^3/uL (0.0-0.1) 10/11/24 05:52 Nucleated RBC % (auto) 0 % 10/11/24 05:52 Nucleated RBCs # 0.0 /100WBC 10/11/24 05:52 Specimen Type Arterial 10/07/24 18:44 Sample Site Brachial, right 10/07/24 18:44 ABG pH 7.44 (7.35-7.45) 10/07/24 18:44 ABG pCO2 34.6 mmHg (35-45) L 10/07/24 18:44 ABG pO2 78.9 mmHg (80.0-100.0) L 10/07/24 18:44 ABG PO2/FiO2 Ratio 375 10/07/24 18:44 ABG HCO3 23.4 mmol/L (22-26) 10/07/24 18:44 ABG O2 Saturation 95.9 10/07/24 18:44 ABG Base Excess -0.3 mmol/L (-2.0-2.0) 10/07/24 18:44 Brian Test N/a 10/07/24 18:44 A-a O2 Gradient 3.4 mmHg (5-10) L 10/07/24 18:44 Hematocrit 40.9 % (37-47) 10/07/24 18:44 Hgb O2 Saturation 93.9 % (95-100) L 10/07/24 18:44 Carboxyhemoglobin 1.1 %THgb (0.4-20.1) 10/07/24 18:44 Methemoglobin 1.0 % (0.4-1.5) 10/07/24 18:44 Total Hemoglobin 13.3 g/dL (12-16) 10/07/24 18:44 Sodium 132.0 mmol/L (131-143) 10/07/24 18:44 Potassium 4.3 mmol/L (3.5-5.0) 10/07/24 18:44 Glucose 230.0 mg/dL (70-115) H 10/07/24 18:44 Ionized Calcium 1.2 mmol/L (1.1-1.4) 10/07/24 18:44 O2 Delivery Device Room air 10/07/24 18:44 FiO2 21.0 % 10/07/24 18:44 Freight Flow Sales Leader ID Amh 10/07/24 18:44 Sodium 143 mmol/L (136-145) 10/11/24 05:52 Potassium 3.9 mmol/L (3.5-5.1) 10/11/24 05:52 Chloride 108 mmol/L (98-107) H 10/11/24 05:52 Carbon Dioxide 24 mmol/L (22-29) 10/11/24 05:52 Anion Gap 14.9 (5-19) 10/11/24 05:52 BUN 18 mg/dL (8-23) 10/11/24 05:52 Creatinine 0.6 mg/dL (0.5-0.9) 10/11/24 05:52 GFR Calculation Not Reportable 10/11/24 05:52 Glucose 136 mg/dL (65-115) H 10/11/24 05:52 Calculated Osmolality 300 mOsm/kg (285-295) H 10/11/24 05:52 Lactic Acid 2.2 mmol/L (0.5-2.2) 10/07/24 19:00 Lactic Acid (Sepsis) 1.1 mmol/L (0.5-2.2) 10/07/24 22:10 Calcium 8.0 mg/dL (8.5-10.5) L 10/11/24 05:52 Phosphorus 4.7 mg/dL (2.5-4.5) H 10/07/24 19:00 Magnesium 2.0 mg/dL (1.7-2.3) 10/11/24 05:52 Total Bilirubin 0.4 mg/dL (0.15-1.2) 10/10/24 02:25 AST 23 U/L (0-32) 10/10/24 02:25 ALT 11 U/L (0-33) 10/10/24 02:25 Alkaline Phosphatase 80 U/L (35-105) 10/10/24 02:25 Creatine Kinase 120 U/L (26-192) 10/07/24 19:00 C-Reactive Protein 258.7 mg/L (0.0-4.9) H 10/07/24 19:00 NT-Pro-B Natriuret Pep 3194 pg/mL (0-450) H 10/07/24 19:00 Total Protein 5.7 g/dL (6.6-8.7) L 10/10/24 02:25 Albumin 2.6 g/dL (3.5-5.2) L 10/10/24 02:25 Globulin 3.1 g/dL (1.3-4.6) 10/10/24 02:25 Procalcitonin 0.56 ng/mL (0-0.5) H 10/07/24 19:00 TSH 0.62 uIU/mL (0.27-4.20) 10/07/24 19:00 Urine Color Dark yellow (Yellow) A 10/07/24 19:00 Urine Appearance Clear (CLEAR) 10/07/24 19:00 Urine pH 5.0 (5-7) 10/07/24 19:00 Ur Specific [place] 1.039 (1.005-1.030) H 10/07/24 19:00 Urine Protein 1+ (Negative) A 10/07/24 19:00 Urine Glucose (UA) Negative (Normal) 10/07/24 19:00 Urine Ketones Trace (Negative) 10/07/24 19:00 Urine Blood Negative (Negative) 10/07/24 19:00 Urine Nitrate Negative (Negative) 10/07/24 19:00 Urine Bilirubin 1+ (Negative) H 10/07/24 19:00 Urine Urobilinogen 1.0 mg/dL (Negative) 10/07/24 19:00 Ur Leukocyte Esterase Trace (Negative) A 10/07/24 19:00 Urine RBC 0-2 /hpf (0-2) 10/07/24 19:00 Urine WBC 0-5 /hpf (0-5) 10/07/24 19:00 Ur Squamous Epith Cells 0-5 /hpf (0-5) 10/07/24 19:00 Amorphous Sediment Not Reportable 10/07/24 19:00 Urine Bacteria None seen /hpf (NONE) 10/07/24 19:00 Hyaline Casts 19.43 /lpf 10/07/24 19:00 Vitals Last Vital Signs Temp 98.3 F 10/11/24 15:25 Pulse 92 10/11/24 15:25 Resp 21 H 10/11/24 15:25 BP 152/56 10/11/24 15:25 Pulse Ox 96 10/11/24 15:25 O2 Del Method Room Air 10/11/24 15:25 O2 Flow Rate 2 10/11/24 00:00 Discharge Plan Discharge Patient Disposition: Xfer SNF Condition: Stable Prescriptions: Continued vitamins-lipotropics Tablet 1 tab PO DAILY Afrin (oxymetazoline) 0.05 % mist 2 spray intranasal Q12H PRN (Reason: Allergy Symptoms) cholecalciferol (vitamin D3) 50 mcg (2,000 unit) capsule 50 mcg PO DAILY ascorbic acid (vitamin C) 500 mg capsule 500 mg PO DAILY Neuriva Plus Brain Performance 1.7 mg-400 mcg- 2.4 mcg capsule 1 cap PO DAILY Austedo XR 24 mg tablet extended release 24 hr 24 mg PO DAILY Centrum Minis Women 50 Plus 4 mg iron-200 mcg-25 mcg tablet 1 tab PO DAILY nervive Nerve Relief Supplement 1 tab PO DAILY loratadine [Claritin] 10 mg tablet 10 mg PO DAILY Qty: 90 1RF gabapentin 100 mg capsule 100 mg PO TID Qty: 270 1RF metoprolol succinate 50 mg tablet extended release 24 hr 50 mg PO QAM Qty: 90 1RF (DME) Orthopedic shoes See Rx Instructions .ROUTE .MEDSUPPLY Qty: 1 0RF Rx Instructions: With 3 pairs of inserts losartan 25 mg tablet 25 mg PO DAILY Qty: 100 1RF amlodipine 10 mg tablet 10 mg PO QAM Qty: 100 1RF omeprazole 40 mg Capsule,Delayed Release(Dr/Ec) 40 mg PO QAM aspirin 81 mg Tablet,Delayed Release (Dr/Ec) 81 mg PO QAM Systane (PF) 0.4-0.3 % Dropperette 1 drp OPHTHALMIC (EYE) QID PRN (Reason: Dry Eyes) atorvastatin 80 mg Tablet 80 mg PO QPM ropinirole 0.5 mg Tablet 0.5 mg PO BID cranberry 500 mg Capsule 500 mg PO TID Rx Instructions: administer with meals Discontinued meloxicam 7.5 mg tablet 7.5 mg PO DAILY CBD Gummies 300mg daily 300 mg PO BEDTIME clonidine HCl 0.1 mg tablet 0.1 mg PO BID PRN (Reason: BP greater than 180/110) Qty: 60 1RF prednisone 5 mg tablet See Rx Instructions PO DAILY Qty: 21 0RF Rx Instructions: Take one pill daily with food for two weeks, then 1/2 pill daily with food for two weeks, then stop Discharge Orders: Discharge Order (Routine); Ordered 10/11/24 Ordered By: Gayle Alicea Referrals: [facility] [place] [Outside] Chinyere Jin MD [Physician, Neurology] - 2 weeks Zarina Pride MD [Physician, Cardiology] - 7-10 days Evelyn Holloway DO [Primary Care Provider, Family Practice] - 4-7 days Discharge Diet: As Directed and Cardiac Discharge Activity: Resume usual activity Patient Instructions: Opioid Safety Activity Restrictions/Additional Instructions: Dysphagia level 5 diet, moderately thickened liquid, minced and moist diet aspiration precautions Discharge Attestations Time Spent in Discharge Care*: less than 30 min Quality Metrics Clinical Quality Measures [ No reported AMI, CVA or VTE this stay] Coding Level of Care Code Acute Code for Chg Fwd Diagnoses Acute renal failure N17.9 Dehydration E86.0 Multiple falls R29.6 Left elbow pain M25.522 S/P AVR (aortic valve replacement) Z95.2 Difficulty chewing due to dentures K08.89; Z97.2 Neuroleptic-induced tardive dyskinesia G24.01; T43.505A Aspiration into airway T17.908A Debility R53.81
--- NOTE | 2024-10-11 16:06 | PC.NURSE ---
Report: Report called to Kathrine at [facility]
[2024-10-11 16:09] VITALS: BP 152/56; PULSE 92; RESP 21; TEMP 36.6; O2SAT 96
== END 2024-10-11 16:11 | disposition skilled nursing facility (03) | DRG 682 ==
LOC: ER 21:44 → MEDSURG 21:45
PROVIDERS: Admitting Provider Internal Medicine; Emergency Provider Emergency Medicine; PCP Family Medicine; Visit Provider Internal Medicine
DX: N17.9 Acute kidney failure, unspecified (principal); E43 Unspecified severe protein-calorie malnutrition; J69.0 Pneumonitis due to inhalation of food and vomit; G37.9 Demyelinating disease of central nervous system, unspecified; E86.0 Dehydration; R29.6 Repeated falls; M25.522 Pain in left elbow; R13.10 Dysphagia, unspecified; G24.01 Drug induced subacute dyskinesia; Z68.23 Body mass index [BMI] 23.0-23.9, adult; I10 Essential (primary) hypertension; Z66 Do not resuscitate; I35.0 Nonrheumatic aortic (valve) stenosis; K58.9 Irritable bowel syndrome, unspecified; G25.81 Restless legs syndrome; J44.9 Chronic obstructive pulmonary disease, unspecified; E78.00 Pure hypercholesterolemia, unspecified; G47.30 Sleep apnea, unspecified; F31.9 Bipolar disorder, unspecified; K08.89 Other specified disorders of teeth and supporting structures; T43.505A Adverse effect of unspecified antipsychotics and neuroleptics, initial encounter; Z79.82 Long term (current) use of aspirin; Z95.3 Presence of xenogenic heart valve; Z86.73 Personal history of transient ischemic attack (TIA), and cerebral infarction without residual deficits; Z87.01 Personal history of pneumonia (recurrent)
CPT/HCPCS: 36415; 36600; 51702; 70450; 71045; 71260; 73020; 73070; 73120; 73502; 74177; 74230; 80048; 80051; 80053; 81001; 82330; 82550; 82805; 83605; 83735; 83880; 84100; 84145; 84443; 85025; 85610; 85730; 86140; 87040; 87486; 87581; 87633; 92526; 92610; 92611; 93005; 93306; 96360; 96361; 96372; 96374; 97116; 97161; 97167; 97530; 97535; 99285; J0360; J1650; J2270; J2543; J3480; J7030; J9999

== ENCOUNTER → 2024-12-01 10:38 | Outpatient (BNVA) | payer OTHER, MEDICAID, SELFPAY | PROVIDERS: PCP Family Medicine; Visit Provider Orthopaedic Surgery | DX: S32.000A Wedge compression fracture of unspecified lumbar vertebra, initial encounter for closed fracture (principal); X58.XXXA Exposure to other specified factors, initial encounter | CPT/HCPCS: 72100; 99213 ==

== ENCOUNTER → 2024-12-13 10:20 | Outpatient (BNVA) | payer OTHER, MEDICAID, SELFPAY | PROVIDERS: PCP Family Medicine; Visit Provider Family Medicine | DX: I10 Essential (primary) hypertension (principal); E78.00 Pure hypercholesterolemia, unspecified; R73.9 Hyperglycemia, unspecified; G25.81 Restless legs syndrome; E55.9 Vitamin D deficiency, unspecified; E83.42 Hypomagnesemia | CPT/HCPCS: 80053; 80061; 82306; 82607; 82746; 83735; 84439; 84443; 84550; 85025; 85651; 86038; 86140; 86431 ==

== ENCOUNTER 2024-12-28 07:17 | Outpatient (CLI) | payer OTHER, MEDICAID, SELFPAY ==
--- NOTE | 2024-12-28 08:00 | MR_ITS ---
WS: [id number] MRI LUMBAR SPINE NONCONTRAST TECHNIQUE: Sagittal T1, T2 and STIR imaging. Axial T1 and T2 imaging. CLINICAL INFORMATION: Back Pain COMPARISON: Radiograph 12/01/2024 FINDINGS: Counting performed from the craniocervical junction. S1 is lumbarized. Mild lumbar curve. Compression fracture inferior endplate T12 with associated edema. Mild loss vertebral body height. No retropulsion. No other acute appearing compression fractures. Prior kyphoplasty changes L5 and S1 with chronic compression deformities. Fracture cleft extends anterior to posterior L1-L2: Mild facet arthropathy. L2-L3: Mild facet arthropathy. Spinal canal and foramen are patent. L3-L4: Mild annular bulging. Slight narrowing of the RIGHT subarticular recess. Mild facet arthropathy. Spinal canal and foramen are patent. L4-L5: Grade 1 anterolisthesis. Moderate to severe central canal stenosis with impingement of traversing L5 nerve roots. Moderate facet arthropathy. Small facet effusions. Mild RIGHT foraminal narrowing. L5-S1: Shallow central protrusion. Slight impingement on the RIGHT greater than LEFT S1 nerve roots. Moderate facet arthropathy. Mild bilateral foraminal narrowing. S1-S2: Mild disc bulge with endplate ridging. Slight contact of the traversing S2 nerve roots. Foramen are patent. Mild facet arthropathy. Visualized pelvic bony structures: Normal. Paravertebral soft tissues: Normal. MR/MR lumbar spine wo con* [id number] IMPRESSION: 1. Counting performed from the craniocervical junction. S1 is lumbarized. 2. Prior kyphoplasty changes L5 and S1. 3. Acute appearing compression inferior endplate T12 with mild loss of vertebr al body height. No retropulsion. Transverse fracture cleft. 4. Moderate to severe central canal stenosis L4-5 with grade 1 anterolisthesis . Impingement of the traversing L5 nerve roots bilaterally. 5. Shallow central protrusion L5-S1 impinges the traversing S1 nerve roots RIG HT greater than LEFT.
== END 2024-12-28 07:18 | disposition home or self-care (01) ==
LOC: RAD 07:18
PROVIDERS: PCP Family Medicine; Visit Provider Orthopaedic Surgery
DX: M51.360 Other intervertebral disc degeneration, lumbar region with discogenic back pain only (principal); M47.816 Spondylosis without myelopathy or radiculopathy, lumbar region; M48.061 Spinal stenosis, lumbar region without neurogenic claudication; M43.16 Spondylolisthesis, lumbar region; M51.17 Intervertebral disc disorders with radiculopathy, lumbosacral region; M47.817 Spondylosis without myelopathy or radiculopathy, lumbosacral region
CPT/HCPCS: 72148

== ENCOUNTER 2025-01-26 09:36 | Emergency (ER) | payer OTHER, MEDICAID, SELFPAY ==
[2025-01-26 09:36] VITALS: BP 148/82; PULSE 84; RESP 16; TEMP 36.8; O2SAT 95; BMI 24.7
--- OUTSIDE RECORDS SUMMARY | 2025-01-26 09:45 | XMS_ITS | Encounter Summary ---
Author Organization [facility] Address [address] [place] [address] Care Team Providers Care Marketing Clerk Name Role Phone Unavailable Primary Care Provider Unavailabl e Encounter Details Date Type Department Care Team (Late st Contact Info) Description 11/09/2019 Lab Requisition [facility] [address] [place] [address] 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 Gender Identity Not on file Sexual Orientation Not on file documented as of this encounter Plan of Treatment Not on file documented as of this encounter Procedures Procedure Name Priority Date/Time Associated Diagnosis Comments BASIC METABOLIC PANEL Stat 11/09/2019 4:15 AM CDT documented in this encounter Results * (ABNORMAL) BASIC METABOLIC PANEL (11/09/2019 4:15 AM CDT) SODIUM 141 136 - 145 mmol/L 11/09/2019 6:27 AM CDT [facility] POTASSIUM 4.2 3.5 - 5.1 mmol/L 11/09/2019 6:27 AM CDT [facility] CHLORIDE 101 98 - 107 mmol/L 11/09/2019 6:27 AM CDT [facility] CO2 29 22 - 29 mmol/L 11/09/2019 6:27 AM CDT [facility] CALCIUM 9.0 8.8 - 10.2 mg/dL 11/09/2019 6:27 AM CDT [facility] BUN 28(H) 8 - 23 mg/dL 11/09/2019 6:27 AM T [facility] CREATININE 0.90 0.51 - 0.95 mg/dL 11/09/2019 6:27 AM T [facility] Comment:The GFR result is no t clinically significant on patients <18 or >70 years of age. GLUCOSE 156(H) 74 - 99 mg/dL 11/09/2019 6:27 AM T [facility] GFR >60 mL/min/1.7 3 sq meter 11/09/2019 6:27 AM T [facility] Comment: eGFR has not been validated for use in the elderly (> 70 years of age), women, patients with serious co-morbid conditions, or persons with extremes of body size or muscle mass and should also be interpreted with caution in patients with acute kidney failure, dialysis dependent patients, patients reporting exceptional dietary intake (e.g. vegetarian diet, high protein diets, creatine supplementation), and patients with severe liver disease. Based on National Kidney Disease Education Program If patient is , please refer to the GFR result. GFR, >60 mL/min/1.7 3 sq meter 11/09/2019 6:27 AM CDT [facility] ANION GAP 11 9 - 20 mmol/L 11/09/2019 6:27 AM T [facility] Blood Collection / Unknown 11/09/2019 4:15 AM CDT 11/09/2019 5:58 AM CDT us Cristiane Minor NP CHEMISTRY ORDERABLES Final Resu lt [facility] [address] [place], [place] [id number] documented in this encounter Visit Diagnoses Not on filedocumented in this encounter
--- OUTSIDE RECORDS SUMMARY | 2025-01-26 09:45 | XMS_ITS | Encounter Summary ---
Author Organization [facility] Address [address] [place] [address] Care Team Providers Care Property Valuer Name Role Phone Unavailable Primary Care Provider Unavailabl e Encounter Details Date Type Department Care Team (Late st Contact Info) Description 11/11/2019 Lab Requisition [facility] Services [address] [place] [address] 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 Gender Identity Not on file Sexual Orientation Not on file documented as of this encounter Plan of Treatment Not on file documented as of this encounter Procedures Procedure Name Priority Date/Time Associated Diagnosis Comments CBC WITH DIFFERENTIAL Stat 11/11/2019 5:02 AM CDT BASIC METABOLIC PANEL Stat 11/11/2019 5:02 AM CDT documented in this encounter Results * (ABNORMAL) BASIC METABOLIC PANEL (11/11/2019 5:02 AM CDT) SODIUM 140 136 - 145 mmol/L 11/11/2019 6:36 AM CDT [facility] POTASSIUM 4.1 3.5 - 5.1 mmol/L 11/11/2019 6:36 AM CDT [facility] CHLORIDE 102 98 - 107 mmol/L 11/11/2019 6:36 AM CDT [facility] CO2 30(H) 22 - 29 mmol/L 11/11/2019 6:36 AM T [facility] CALCIUM 9.0 8.8 - 10.2 mg/dL 11/11/2019 6:36 AM CDT [facility] BUN 26(H) 8 - 23 mg/dL 11/11/2019 6:36 AM T [facility] CREATININE 0.97(H) 0.51 - 0.95 mg/dL 11/11/2019 6:36 AM T [facility] Comment:The GFR result is no t clinically significant on patients <18 or >70 years of age. GLUCOSE 157(H) 74 - 99 mg/dL 11/11/2019 6:36 AM T [facility] GFR 56 mL/min/1. 73 sq meter 11/11/2019 6:36 AM T [facility] Comment: eGFR has not been validated for [...] refer to the GFR result. GFR, >60 mL/min/1. 73 sq meter 11/11/2019 6:36 AM CDT [facility] ANION GAP 8(L) 9 - 20 mmol/L 11/11/2019 6:36 AM T [facility] Blood Collection / Unknown 11/11/2019 5:02 AM CDT 11/11/2019 5:50 AM CDT us Cristiane Minor NP CHEMISTRY ORDERABLES Final Resu lt [facility] [address] [place] [address] * (ABNORMAL) CBC WITH DIFFERENTIAL (11/11/2019 5:02 AM CDT) [facility] WBC 8.3 4.8 - 10.8 K/uL 11/11/2019 6:12 AM CDT [facility] RBC 2.88(L) 4.20 - 5.40 M/uL 11/11/2019 6:12 AM CDT [facility] HEMOGLOBIN 8.6(L) 12.0 - 16.0 g/dL 11/11/2019 6:12 AM CDT [facility] HEMATOCRIT 27.3(L) 36.0 - 46.0 % 11/11/2019 6:12 AM T [facility] MCV 94.8 84.0 - 103.0 fL 11/11/2019 6:12 AM CDT [facility] MCH 29.9 27.0 - 34.0 pg 11/11/2019 6:12 AM CDT [facility] MCHC 31.5 30.0 - 35.0 g/dL 11/11/2019 6:12 AM T [facility] RDW 14.4 11.0 - 14.5 % 11/11/2019 6:12 AM T [facility] RDW-STDEV 49.5 37.0 - 54.0 fL 11/11/2019 6:12 AM CDT [facility] PLATELETS 171 140 - 440 K/uL 11/11/2019 6:12 AM T [facility] MPV 10.9 8.9 - 12.8 fL 11/11/2019 6:12 AM CDT [facility] NEUTROPHILS 60 42 - 75 % 11/11/2019 6:12 AM CDT [facility] LYMPHOCYTES 17(L) 24 - 44 % 11/11/2019 6:12 AM CDT [facility] MONOCYTES 15(H) 2 - 10 % 11/11/2019 6:12 AM CDT [facility] EOSINOPHILS 7 0 - 7 % 11/11/2019 6:12 AM CDT [facility] BASOPHILS 1 0 - 1 % 11/11/2019 6:12 AM CDT [facility] IMMATURE GRANULOCYTES 1 0 - 2 % 11/11/2019 6:12 AM CDT [facility] NEUTROPHIL ABSOLUTE 5.04 2.00 - 8.00 K/uL 11/11/2019 6:12 AM CDT [facility] LYMPHOCYTE ABSOLUTE 1.43 1.20 - 4.00 K/uL 11/11/2019 6:12 AM CDT [facility] MONOCYTE ABSOLUTE 1.23(H) 0.10 - 0.60 K/uL 11/11/2019 6:12 AM CDT [facility] EOSINOPHIL ABSOLUTE 0.54 0.00 - 0.70 K/uL 11/11/2019 6:12 AM CDT [facility] BASOPHILS ABSOLUTE 0.05 0.00 - 0.20 K/uL 11/11/2019 6:12 AM CDT [facility] IMMATURE GRANULOCYTES ABSOLUTE 0.04 0.00 - 0.10 K/uL 11/11/2019 6:12 AM CDT [facility] Blood Collection / Unknown 11/11/2019 5:02 AM CDT 11/11/2019 5:50 AM CDT us Cristiane Minor NP HEMATOLOGY ORDERABLES Final Res ult [facility] [address] [place] [address] documented in this encounter Visit Diagnoses Not on filedocumented in this encounter
--- OUTSIDE RECORDS SUMMARY | 2025-01-26 09:45 | XMS_ITS | Encounter Summary ---
Author Organization [email or web address] Address [address] [place] [address] Care Team Providers Care Before School Name Role Phone Unavailable Primary Care Provider Unavailabl e Encounter Details Date Type Department Care Team (Late st Contact Info) Description 11/17/2019 Lab Requisition [facility] Laboratory Services [address] [place] [address] [place] [phone] [place] [address] [place] [address] Social History Tobacco Use Types Packs/Day Years Used Date Smoking Tobacco: Never Assessed Comments Unknown Sex and Gender Information Value Date Recorded Sex Assigned at Not on file 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 Gender Identity Not on file Sexual Orientation Not on file documented as of this encounter Plan of Treatment Not on file documented as of this encounter Procedures Procedure Name Priority Date/Time Associated Diagnosis Comments CBC WITHOUT DIFFERENTIAL Stat 11/17/2019 4:53 AM CDT MAGNESIUM LEVEL Stat 11/17/2019 4:53 AM CDT COMPREHENSIVE METABOLIC PANEL Stat 11/17/2019 4:53 AM CDT documented in this encounter Results * MAGNESIUM LEVEL (11/17/2019 4:53 AM CDT) MAGNESIUM 2.2 1.6 - 2.4 mg/dL 11/17/2019 6:37 AM CDT [facility] [employer] [facility] Blood Collection / Unknown 11/17/2019 4:53 AM CDT 11/17/2019 6:03 AM CDT us Elio Luevano MD CHEMISTRY ORDERABLES Final Resu lt [facility] [address] [place] [address] * (ABNORMAL) COMPREHENSIVE METABOLIC PANEL (11/17/2019 4:53 AM CDT) SODIUM 140 136 - 145 mmol/L 11/17/2019 6:37 AM CDT [facility] POTASSIUM 4.0 3.5 - 5.1 mmol/L 11/17/2019 6:37 AM CDT [facility] CHLORIDE 104 98 - 107 mmol/L 11/17/2019 6:37 AM CDT [facility] CO2 23 22 - 29 mmol/L 11/17/2019 6:37 AM CDT [facility] CALCIUM 8.8 8.8 - 10.2 mg/dL 11/17/2019 6:37 AM T [facility] BUN 22 8 - 23 mg/dL 11/17/2019 6:37 AM T [facility] CREATININE 1.06(H) 0.51 - 0.95 mg/dL 11/17/2019 6:37 AM T [facility] Comment:The GFR result is no t clinically significant on patients <18 or >70 years of age. GLUCOSE 114(H) 74 - 99 mg/dL 11/17/2019 6:37 AM CDT [facility] TOTAL PROTEIN 7.0 6.4 - 8.3 g/dL 11/17/2019 6:37 AM T [facility] ALBUMIN 3.4(L) 3.5 - 5.2 g/dL 11/17/2019 6:37 AM CDT [facility] BILIRUBIN TOTAL 0.4 0.2 - 1.0 mg/dL 11/17/2019 6:37 AM CDT [facility] ALKALINE PHOSPHATASE 136(H) 35 - 104 U/L 11/17/2019 6:37 AM T [facility] [employer] [facility] AST 33 10 - 35 U/L 11/17/2019 6:37 AM CDT [facility] ALT 26 <=35 U/L 11/17/2019 6:37 AM CDT [facility] GFR 51 mL/min/1. 73 sq meter 11/17/2019 6:37 AM CDT [facility] Comment: eGFR has not been validated for [...] result. GFR, >60 mL/min/1. 73 sq meter 11/17/2019 6:37 AM CDT [facility] ANION GAP 13 9 - 20 mmol/L 11/17/2019 6:37 AM T [facility] Blood Collection / Unknown 11/17/2019 4:53 AM CDT 11/17/2019 6:03 AM CDT us Elio Luevano MD CHEMISTRY ORDERABLES Final Resu lt [facility] [address] [place] [address] * (ABNORMAL) CBC WITHOUT DIFFERENTIAL (11/17/2019 4:53 AM CDT) WBC 11.5(H) 4.8 - 10.8 K/uL 11/17/2019 6:34 AM CDT [facility] RBC 2.97(L) 4.20 - 5.40 M/uL 11/17/2019 6:34 AM CDT [facility] HEMOGLOBIN 9.1(L) 12.0 - 16.0 g/dL 11/17/2019 6:34 AM CDT [facility] HEMATOCRIT 28.8(L) 36.0 - 46.0 % 11/17/2019 6:34 AM CDT [facility] MCV 97.0 84.0 - 103.0 fL 11/17/2019 6:34 AM CDT [facility] MCH 30.6 27.0 - 34.0 pg 11/17/2019 6:34 AM CDT [facility] MCHC 31.6 30.0 - 35.0 g/dL 11/17/2019 6:34 AM CDT [facility] PLATELETS 191 140 - 440 K/uL 11/17/2019 6:34 AM CDT [facility] MPV 10.7 8.9 - 12.8 fL 11/17/2019 6:34 AM CDT [facility] RDW 15.7(H) 11.0 - 14.5 % 11/17/2019 6:34 AM CDT [facility] RDW-STDEV 53.2 37.0 - 54.0 fL 11/17/2019 6:34 AM T [facility] Blood Collection / Unknown 11/17/2019 4:53 AM CDT 11/17/2019 6:03 AM CDT us Elio Luevano MD HEMATOLOGY ORDERABLES Final Res ult [facility] [address] [place] [address] documented in this encounter Visit Diagnoses Not on filedocumented in this encounter
--- OUTSIDE RECORDS SUMMARY | 2025-01-26 09:45 | XMS_ITS | Encounter Summary ---
Author Organization [facility] Address [address] [place] [address] Care Team Providers Care Cinder Crane Operator Name Role Phone Unavailable Primary Care Provider Unavailabl e Encounter Details Date Type Department Care Team (Latest Contact Info) Description 12/18/1999 Outpatient Historical [facility] Family Medicine [place] [id number] [phone] Venecia March, DO [address] [place] [address] Unspecified essential hypertension (Primary Dx); Esophageal reflux Social History Tobacco Use Types Packs/Day Years Used Date Smoking Tobacco: Never Assessed Comments Unknown Sex and Gender Information Value Date Recorded Sex Assigned at Not on file Legal Sex Female 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
--- OUTSIDE RECORDS SUMMARY | 2025-01-26 09:45 | XMS_ITS | Encounter Summary ---
Author Organization [facility] Address [address] [place] [address] Care Team Providers Care Front End Drupal Developer Name Role Phone Unavailable Primary Care Provider Unavailabl e Encounter Details Date Type Department Care Team (Late st Contact Info) Description 11/11/2019 Lab Requisition [facility] Laboratory Services [address] [place] [address] 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 DIFFICILE DETECTION Stat 11/11/2019 2:00 AM CDT documented in this encounter Results * C. DIFFICILE DETECTION (11/11/2019 2:00 AM CDT) TOXIGENIC C DIFFICILE Not Detected Not Detected 11/11/2019 7:02 AM CDT [facility] [employer] [facility] Stool STOOL SPECIMEN / Unknown Collection / Unknown 11/11/2019 2:00 AM CDT 11/11/2019 5:[address] [facility] - 11/11/2019 7:02 AM CDT This assay is used to detect Toxigenic C. difficile target(B gene) DNA sequences in unformed stool specimens. If toxigenic C. difficile is not detected, but clinical suspicion is high please consult ID for consultation and potential repeat testing. This test should not be used as a test of cure. Cristiane Minor NP MICROBIOLOGY - GENERAL ORDERABL ES Final Result Performing Organization Address [facility]/State/[facility] Co de Phone Number [facility] LABORATORY SERVICES [place] [id number] [place], [place] [id number] documented in this encounter Visit Diagnoses Not on filedocumented in this encounter
--- OUTSIDE RECORDS SUMMARY | 2025-01-26 09:45 | XMS_ITS | Encounter Summary ---
Author Organization [facility] Address [address] [place] [address] Care Team Providers Care Chief Construction Inspector Name Role Phone Unavailable Primary Care Provider Unavailabl e Encounter Details Date Type Department Care Team (Late st Contact Info) Description 11/14/2019 Lab Requisition [facility] Laboratory Services [address] [place] [address] [place] [phone] [place] [address] [place] [address] Social History Tobacco Use Types Packs/Day Years Used Date Smoking Tobacco: Never Assessed Comments Unknown Sex and Gender Information Value Date Recorded Sex Assigned at Not on file 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 [employer] [facility] Blood Collection / Unknown 11/14/2019 4:40 AM CDT 11/14/2019 5:56 AM CDT us Elio Luevano MD CHEMISTRY ORDERABLES Final Resu lt [facility] [address] [place] [address] * (ABNORMAL) COMPREHENSIVE METABOLIC PANEL (11/14/2019 4:40 AM CDT) SODIUM 138 136 - 145 mmol/L 11/14/2019 6:46 AM CDT [facility] POTASSIUM 3.6 3.5 - 5.1 mmol/L 11/14/2019 6:46 AM CDT [facility] CHLORIDE 99 98 - 107 mmol/L 11/14/2019 6:46 AM CDT [facility] CO2 29 22 - 29 mmol/L 11/14/2019 6:46 AM CDT [facility] CALCIUM 8.8 8.8 - 10.2 mg/dL 11/14/2019 6:46 AM CDT [facility] BUN 23 8 - 23 mg/dL 11/14/2019 6:46 AM CDT [facility] CREATININE 1.10(H) 0.51 - 0.95 mg/dL 11/14/2019 6:46 AM T [facility] Comment:The GFR result is no t clinically significant on patients <18 or >70 years of age. GLUCOSE 150(H) 74 - 99 mg/dL 11/14/2019 6:46 AM T [facility] TOTAL PROTEIN 6.3(L) 6.4 - 8.3 g/dL 11/14/2019 6:46 AM CDT [facility] ALBUMIN 3.1(L) 3.5 - 5.2 g/dL 11/14/2019 6:46 AM CDT [facility] BILIRUBIN TOTAL 0.3 0.2 - 1.0 mg/dL 11/14/2019 6:46 AM CDT [facility] ALKALINE PHOSPHATASE 157(H) 35 - 104 U/L 11/14/2019 6:46 AM T [facility] AST 34 10 - 35 U/L 11/14/2019 6:46 AM CDT [facility] ALT 27 <=35 U/L 11/14/2019 6:46 AM CDT [facility] GFR 49 mL/min/1. 73 sq meter 11/14/2019 6:46 AM CDT [facility] Comment: eGFR has not been validated [...] please refer to the GFR result. GFR, 59 mL/min/1. 73 sq meter 11/14/2019 6:46 AM CDT [facility] ANION GAP 10 9 - 20 mmol/L 11/14/2019 6:46 AM T [facility] Blood Collection / Unknown 11/14/2019 4:40 AM CDT 11/14/2019 5:56 AM CDT us Elio Luevano MD CHEMISTRY ORDERABLES Final Resu lt [facility] [address] [place] [address] * (ABNORMAL) CBC WITHOUT DIFFERENTIAL (11/14/2019 4:40 AM CDT) [facility] WBC 7.7 4.8 - 10.8 K/uL 11/14/2019 6:15 AM CDT [facility] RBC 2.63(L) 4.20 - 5.40 M/uL 11/14/2019 6:15 AM CDT [facility] HEMOGLOBIN 8.2(L) 12.0 - 16.0 g/dL 11/14/2019 6:15 AM CDT [facility] HEMATOCRIT 25.1(L) 36.0 - 46.0 % 11/14/2019 6:15 AM CDT [facility] MCV 95.4 84.0 - 103.0 fL 11/14/2019 6:15 AM CDT [facility] MCH 31.2 27.0 - 34.0 pg 11/14/2019 6:15 AM CDT [facility] MCHC 32.7 30.0 - 35.0 g/dL 11/14/2019 6:15 AM CDT [facility] PLATELETS 151 140 - 440 K/uL 11/14/2019 6:15 AM CDT [facility] MPV 11.0 8.9 - 12.8 fL 11/14/2019 6:15 AM CDT [facility] RDW 14.7(H) 11.0 - 14.5 % 11/14/2019 6:15 AM CDT [facility] RDW-STDEV 50.9 37.0 - 54.0 fL 11/14/2019 6:15 AM T [facility] Blood Collection / Unknown 11/14/2019 4:40 AM CDT 11/14/2019 5:56 AM CDT us Elio Luevano MD HEMATOLOGY ORDERABLES Final Res ult [facility] [address] [place] [address] documented in this encounter Visit Diagnoses Not on filedocumented in this encounter
--- OUTSIDE RECORDS SUMMARY | 2025-01-26 09:45 | XMS_ITS | Encounter Summary ---
Author Organization [facility] Address [address] [place] [address] Care Team Providers Care Calculating Machine Mechanic Name Role Phone Unavailable Primary Care Provider Unavailabl e Encounter Details Date Type Department Care Team (Latest Contact Info) Description 12/15/2001 Outpatient Historical [facility] Medicine [address] [phone] Augustin Can MD GASTRITIS NEC W/O HEMORRH (Primary Dx) Social History Tobacco Use Types Packs/Day Years Used Date Smoking Tobacco: Never Assessed Comments Unknown Sex and Gender Information Value Date Recorded Sex Assigned at Not on file Legal 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
--- OUTSIDE RECORDS SUMMARY | 2025-01-26 09:45 | XMS_ITS | Clinical Summary ---
Author Organization [facility] Address [address] 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
--- OUTSIDE RECORDS SUMMARY | 2025-01-26 09:45 | XMS_ITS | Encounter Summary ---
Author Organization [facility] Address [address] [place] [address] Care Team Providers Care Gauge And Weigh Machine Adjuster Name Role Phone Unavailable Primary Care Provider Unavailabl e Encounter Details Date Type Department Care Team (Late st Contact Info) Description 11/07/2019 Lab Requisition [facility] [address] [place] [address] [place] [phone] Carlos Tripp, DO [address] [place] [address] Social History Tobacco Use Types Packs/Day Years Used Date Smoking Tobacco: Never Assessed Comments Unknown Sex and Gender Information Value Date Recorded Sex Assigned at Not on file 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 Gender Identity Not on file Sexual Orientation Not on file documented as of this encounter Plan of Treatment Not on file documented as of this encounter Procedures Procedure Name Priority Date/Time Associated Diagnosis Comments BLOOD CULTURE Stat 11/07/2019 9:30 PM CDT documented in this encounter Results * BLOOD CULTURE (11/07/2019 9:30 PM CDT) BLOOD CULTURE No growth 11/13/2019 5:39 AM CDT [facility] [employer] [facility] Blood (Peripheral) Collection / Unknown 11/07/2019 9:30 PM CDT 11/07/2019 11:19 PM CDT Carlos Tripp DO MICROBIOLOGY - GENERAL ORD ERABLES Final Result [facility] [employer] [facility] [address] [place] [address] documented in this encounter Visit Diagnoses Not on filedocumented in this encounter
--- OUTSIDE RECORDS SUMMARY | 2025-01-26 09:45 | XMS_ITS | Encounter Summary ---
Author Organization [facility] Address [address] [place] [address] Care Team Providers Care Core Machine Tender Name Role Phone Unavailable Primary Care Provider Unavailabl e Encounter Details Date Type Department Care Team (Late st Contact Info) Description 11/10/2019 Lab Requisition [facility] Laboratory Services [address] [place] [address] 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 Gender Identity Not on file Sexual Orientation Not on file documented as of this encounter Plan of Treatment Not on file documented as of this encounter Procedures Procedure Name Priority Date/Time Associated Diagnosis Comments URINALYSIS WITH REFLEX CULTURE Stat 11/10/2019 4:55 PM CDT LACTIC ACID Stat 11/10/2019 12:00 PM CDT PROCALCITONIN Stat 11/10/2019 11:55 AM CDT BLOOD CULTURE Stat 11/10/2019 11:34 AM CDT documented in this encounter Results * (ABNORMAL) URINALYSIS WITH REFLEX CULTURE (11/10/2019 4:55 PM CDT) COLOR UA Yellow Pale to dark yellow 11/10/2019 12:51 PM CDT [facility] [employer] [facility] CLARITY UA Cloudy(A) Clear 11/10/2019 12:51 PM T [facility] SPECIFIC GRAVITY UA 1.016 1.003 - 1.035 11/10/2019 12:51 PM [facility] PH UA 5.0 5.0 - 8.0 11/10/2019 12:51 PM [facility] LEUKOCYTE ESTERASE UA Negative Negative 11/10/2019 12:51 PM [facility] NITRITE UA Negative Negative 11/10/2019 12:51 PM [facility] PROTEIN UA Negative Negative 11/10/2019 12:51 PM [facility] GLUCOSE UA Negative Negative 11/10/2019 12:51 PM [facility] KETONES UA Negative Negative 11/10/2019 12:51 PM [facility] UROBILINOGEN UA <2.0 <2.0 mg/dL 0 12:51 PM [facility] BILIRUBIN UA Negative Negative 11/10/2019 12:51 PM [facility] BLOOD UA Negative Negative 11/10/2019 12:51 PM [facility] Comment:Ascorbic acid may ca use false negative results for blood. A microscopic review was reflexed to rule out this interference. WBC UA 0-2 0 - 2 /hpf 11/10/2019 12:51 PM [facility] RBC UA 0-2 0 - 2 /hpf 11/10/2019 12:51 PM [facility] BACTERIA UA Negative Negative /hpf 11/10/2019 12:51 PM [facility] HYALINE CAST 0-2 None Seen, 0-2 /lpf 11/10/2019 12:51 PM [facility] AMORPHOUS CRYSTAL Present(A) Absent 11/10/2019 12:51 PM [facility] COMMENT, URINE Mucous: Few 0 12:51 PM [facility] Ascorbic Acid UA Positive(A) Negative 11/10/2019 12:51 PM [facility] Urine URINE SPECIMEN / Unknown Collection / Unknown 11/10/2019 4:55 PM CDT 11/10/2019 12:16 PM CDT Cristiane Minor NP URINE ORDERABLES Final Result Performing Organization Address [facility] Co de Phone Number [address] [address] * LACTIC ACID (11/10/2019 12:00 PM CDT) LACTIC ACID 0.7 <=2.0 mmol/L 11/10/2019 12:43 PM CDT [facility] Blood Collection / Unknown 11/10/2019 12:00 PM CDT 11/10/2019 12:14 PM CDT Cristiane Minor NP CHEMISTRY ORDERABLES Final Resu lt Performing Organization Address [facility] de Phone Number [place] [phone] [place] [address] * (ABNORMAL) PROCALCITONIN (11/10/2019 11:55 AM CDT) PROCALCITONIN 0.80(H) <=0.08 ng/mL 11/10/2019 1:01 PM CDT [facility] Blood Collection / Unknown 11/10/2019 11:55 AM CDT 11/10/2019 12:31 PM CDT Narrative [facility] [employer] [facility] - 11/10/2019 1:01 PM CDT The utility of procalcitonin is limited/NOT recommended in certain populations (e.g. newborns, dialysis/ESRD, patients with recent major surgery/trauma/jackson, liver cirrhosis, viral hepatitis, certain cancers, etc.). Procalcitonin levels MUST be interpreted in the context of the patient's clinical condition and CANNOT be solely relied upon for diagnosis of infection. <0.25 ng/mL: Bacterial infection unlikely, particularly lower respiratory tract infections. <0.5 ng/mL: Low risk for progression to severe sepsis/septic shock. Localized infection possible. Measurements done early (<6 hours) after systemic process starts may still be low. 0.5-2 ng/mL: Moderate risk for progression to severe sepsis/septic shock. >2 ng/mL: High risk for progression to severe sepsis/septic shock. If antibiotics ARE administered, repeat testing is recommended every 2-3 days to help guide antibiotic cessation. Once a decrease of 80% or more has occurred from baseline, discontinuation of antibiotics should strongly be considered in clinically stable patients. Procalcitonin is produced in the setting of systemic inflammation, particularly bacterial infections. It is detectable within 2-4 hours and peaks within 6-24 hours. us Cristiane Minor NP CHEMISTRY ORDERABLES Final Resu lt Performing Organization Address [facility] Co de Phone Number [facility] [address] [place] [address] * BLOOD CULTURE (11/10/2019 11:34 AM CDT) BLOOD CULTURE No growth 11/15/2019 12:49 PM CDT [facility] Blood (Peripheral) 11/10/2019 11:34 AM CDT 11/10/2019 12:18 PM CDT us Cristiane Minor NP MICROBIOLOGY - GENERAL ORDERABL ES Final Result Performing Organization Address [facility] Co de Phone Number [facility] [address] [place] [address] documented in this encounter Visit Diagnoses Not on filedocumented in this encounter
--- OUTSIDE RECORDS SUMMARY | 2025-01-26 09:45 | XMS_ITS | Encounter Summary ---
Author Organization [facility] Address [address] [place] [address] Care Team Providers Care Diagrammer And Seamer Name Role Phone Unavailable Primary Care Provider Unavailabl e Encounter Details Date Type Department Care Team (Latest Contact Info) Description 03/07/[address] 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
--- OUTSIDE RECORDS SUMMARY | 2025-01-26 09:45 | XMS_ITS | Clinical Summary ---
Author Organization [facility] Address [address] [place] [address] Phone Care Team Providers Care Plastic Boat Patcher Name Role Phone Mandeep Madrigal MD Primary Care Provider [phone] Allergies No known active allergies Medications albuterol (PROVENTIL,VENTOL IN) 2.5 mg /3 mL (0.083 %) Solution for Nebulization Take 1 mL by inhalation every 6 hours as needed for Shortness of Breath. Active fluticasone propionate (FLONASE) 50 mcg/spray [place], Suspension nasal inhaler Administer 2 Sprays in each nostril every 12 hours as needed for Rhinitis. Active meclizine (ANTIVERT) 25 mg tablet Take 25 mg by mouth 3 times daily as needed for Dizziness. Active oxyBUTYnin (DITROPAN) 5 mg tablet Take 5 mg by mouth daily. Active amLODIPine (NORVASC) 10 mg tablet Take 1 Tablet (10 mg) by mouth daily. 30 Tablet 1 4 Active aspirin (SHAMEKA CHEWABLE) 81 mg Tablet, Chewable Take 1 Tablet (81 mg) by mouth daily with breakfast. 90 Tablet 4 Active atorvastatin (LIPITOR) 80 mg tablet Take 1 Tablet (80 mg) by mouth daily. 90 Tablet 4 Active acetaminophen (TYLENOL) 325 mg tablet Take 2 Tablets (650 mg) by mouth every 6 hours as needed for Other (See Comment) (See admin instructions). Active metoprolol succinate (TOPROL XL) 50 mg Extended Release 24 hour tablet Take 1 Tablet (50 mg) by mouth daily. Active Active Problems Problem Noted Date Diagnosed Date Right foot pain 09/06/2023 History of stroke without residual deficits 08/25 Tardive dyskinesia 09/05/2023 RLS (restless legs syndrome) 09/05/2023 Benign hypertension 09/05/2023 Other hyperlipidemia 09/05/2023 Bipolar disorder, unspecified 09/05/2023 Other emphysema 09/05/2023 Stroke-like symptom 09/05/2023 Essential hypertension 08/26/2023 Mixed hyperlipidemia 08/26/2023 Acute ischemic stroke 08/23/2023 Acute right-sided weakness 08/23/2023 Dysarthria 08/23/2023 Social History Tobacco Use Types Packs/Day Years Used Date Smoking Tobacco: Never Passive Smoke Exposure: Never Smokeless Tobacco: Never Alcohol Use Standard Drinks/Week Comments Not Currently 0 (1 standard drink = 0.6 oz pur e alcohol) LAST DRINK WAS 2 YEARS AGO [facility] [employer] Answer Date Recorded In the past 12 months has [employer], gas, oil, or water [employer] threatened to shut off services in your home? No 08/24/2023 Feeling Safe Answer Date Recorded Within the last year, have y ou been afraid of your partner or ex-partner? No 08/24/2023 Within the last year, have y ou been humiliated or emotionally abused in other ways by your partner or ex-partner? No Within the last year, have y ou been kicked, hit, slapped, or otherwise physically hurt by your partner or ex-partner? No 08/24/2023 Within the last year, have y ou been raped or forced to have any kind of sexual activity by your partner or ex-partner? No 08/24/2023 Social Connections Answer Date Recorded In a typical week, how many times do you talk on the telephone with family, friends, or neighbors? More than three times a week 08/24/2023 How often do you get togethe r with friends or relatives? Twice a week 08/24/2023 How often do you attend [facility] or rastafarian services? Patient declined 08/24/2023 Do you belong to any clubs o r organizations such as adventist groups, unions, fraternal or athletic groups, or school groups? Yes 08/24/2023 How often do you attend meet ings of the clubs or organizations you belong to? Patient declined 08/24/2023 Are you , , di vorced, , never , or living with a partner? 08/24/2023 Financial Resource Strain Answer Date R ecorded How hard is it for you to pa y for the very basics like food, housing, medical care, and heating? Somewhat hard 08/24/2023 Food Insecurity Answer Date Recorded In the past 12 months, have you worried that your food would run out before you had money to buy more? Sometimes true 2023 In the past 12 months, did y ou run out of food and didn't have money to buy more? Sometimes true 08/24/2023 Transportation Needs Answer Date Record ed In the past 12 months, has l ack of transportation kept you from medical appointments or from getting medications? Yes 07/27 In the past 12 months, has l ack of transportation kept you from meetings, work, or from getting things needed for daily living? Yes 08/24/2023 Housing Stability Answer Date Recorded In the last 12 months, was t here a time when you were not able to pay the mortgage or rent on time? No 08/24/2023 Number of Times Moved in the Last Year Not on fi le 08/24/2023 Unstable Housing in the Last Year Not on file 08/24/2023 Feeling Safe Answer Date Recorded Are you in a relationship wi th someone who hurts you emotionally and/or physically? No 09/05/2023 Food Insecurity Answer Date Recorded Patient needs follow up regardin 08/31/2024 Transportation Needs Answer Date Record ed Patient needs follow up regardin 08/31/2024 Housing Stability Answer Date Recorded Social/Environmental Concerns No concerns Utility Needs Answer Date Recorded Patient needs follow up regardin 08/31/2024 Comments Unknown Sex and Gender Information Value Date Recorded Sex Assigned at Not on file Legal Sex Female 9:12 AM CRNA Gender Identity Not on file Sexual Orientation Not on file Last Filed Vital Signs Vital Sign Reading Time Taken Comments Blood Pressure 154/64 09/09/2023 7:43 AM CDT Pulse 96 09/09/2023 7:43 AM CDT Temperature 36.3 C (97.4 F) 09/09/2023 7:43 AM CDT Respiratory Rate 18 09/09/2023 7:43 AM CDT Oxygen Saturation 98% 09/09/2023 7:43 AM CDT Inhaled Oxygen Concentration - - Weight 64 kg (141 lb 1.5 oz) 09/05/2023 3:29 AM CDT Height 157.5 cm (5' 2 ) 09/05/2023 3:29 AM CDT Body Mass Index 25.81 09/05/2023 3:29 AM CDT Plan of Treatment Health Maintenance Due Date Last Done Comments DTAP/TDAP/TD VACCINES (1 - Tdap) 1966 PNEUMOCOCCAL VACCINE 50+ YEARS (1 of 2 - PCV) 05/02/18 67 ZOSTER VACCINE (1 of 2) 1997 OSTEOPOROSIS SCREENING 2012 RSV VACCINE (60+ or ) (1 - 1-dose 75+ series) 2022 INFLUENZA VACCINE (#1) 2024 Insurance UHC DUAL COMPLETE O [facility] [id number] MEDICAID [place] Advance Directives For more information, please contact: [phone] Documents on File Type Date Recorded Patient Fan Blade Aligner Expl anation Advance Directive POA 08/31/2023 3:50 PM Ad coats Directive POA Advance Directive POA 08/24/2023 7:00 PM * Full Code (Latest Code Status on File) Date Activated Date Inactivated Comments 09/05/2023 2:42 AM 09/09/2023 4:05 PM * Default Full Code - Needs Discussion Date Activated Date Inactivated Comments 08/23/2023 3:19 PM 08/26/2023 7:42 PM Care Teams Plastic Boat Patcher Relationship Specialty Start Date End Date Mandeep Madrigal MD [address] [address] PCP - General Family Practice 09/05/23
--- OUTSIDE RECORDS SUMMARY | 2025-01-26 09:45 | XMS_ITS | Encounter Summary ---
Author Organization [facility] Address [address] [place] [address] Care Team Providers Care Civil Designer Name Role Phone Unavailable Primary Care Provider Unavailabl e Encounter Details Date Type Department Care Team (Latest Contact Info) Description 12/10/[address] 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
--- OUTSIDE RECORDS SUMMARY | 2025-01-26 09:45 | XMS_ITS | Encounter Summary ---
Author Organization [facility] Address [address] [place] [address] Care Team Providers Care Titrator Name Role Phone Unavailable Primary Care Provider Unavailabl e Encounter Details Date Type Department Care Team (Latest Contact Info) Description 06/22/1998 Outpatient Historical [facility] Family Medicine [address] [phone] Pavel Montoya MD NO ADDRESS ON FILE Acute pharyngitis (Primary Dx); Esophagitis, unspecified Social History Tobacco Use Types Packs/Day Years Used Date Smoking Tobacco: Never Assessed Comments Unknown Sex and Gender Information Value Date Recorded Sex Assigned at Not on file Legal Sex Female 3:20 AM 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
--- OUTSIDE RECORDS SUMMARY | 2025-01-26 09:45 | XMS_ITS | Encounter Summary ---
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
--- OUTSIDE RECORDS SUMMARY | 2025-01-26 09:45 | XMS_ITS | Encounter Summary ---
Author Organization [facility] Address [address] [place] [address] Care Team Providers Care Brake [address] Freight Name Role Phone Unavailable Primary Care Provider Unavailabl e Encounter Details Date Type Department Care Team (Latest Contact Info) Description 04/29/1999 Outpatient Historical [facility] Family Medicine [place] [id number] [phone] Venecia March, DO [address] [place] [address] Acute sinusitis, unspecified (Primary Dx); Acute bronchitis Social History Tobacco Use Types Packs/Day Years Used Date Smoking Tobacco: Never Assessed Comments Unknown Sex and Gender Information Value Date Recorded Sex Assigned at Not on file Legal Sex Female 3:20 AM PLANNING MANAGER Gender Identity Not on file Sexual Orientation Not on file documented as of this encounter Plan of Treatment Not on file documented as of this encounter Visit Diagnoses Diagnosis Acute sinusitis, unspecified- Primary Acute bronchitis documented in this encounter
--- OUTSIDE RECORDS SUMMARY | 2025-01-26 09:45 | XMS_ITS | Encounter Summary ---
Author Organization [facility] Address [address] [place] [address] Care Team Providers Care Consultant Intern Name Role Phone Unavailable Primary Care Provider Unavailabl e Encounter Details Date Type Department Care Team (Latest Contact Info) Description 06/14/1998 Outpatient Historical [facility] Family Medicine [address] [phone] Pavel Montoya MD NO ADDRESS ON FILE Acute bronchitis (Primary Dx) Social History Tobacco Use Types Packs/Day Years Used Date Smoking Tobacco: Never Assessed Comments Unknown Sex and Gender Information Value Date Recorded Sex Assigned at Not on file Legal Sex Female 3:20 AM CLIENT SERVICE REPRESENTATIVE Gender Identity Not on file Sexual Orientation Not on file documented as of this encounter Plan of Treatment Not on file documented as of this encounter Visit Diagnoses Diagnosis Acute bronchitis- Primary documented in this encounter
--- OUTSIDE RECORDS SUMMARY | 2025-01-26 09:45 | XMS_ITS | Encounter Summary ---
Author Organization [facility] Address [address] [place] [address] Care Team Providers Care Lockstitch Waistband Setter Name Role Phone Unavailable Primary Care Provider Unavailabl e Encounter Details Date Type Department Care Team (Late st Contact Info) Description 11/10/2019 Lab Requisition [facility] Laboratory Services [address] [place] [phone] [place] [address] [place] [address] Social History Tobacco Use Types Packs/Day Years Used Date Smoking Tobacco: Never Assessed Comments Unknown Sex and Gender Information Value Date Recorded Sex Assigned at Not on file Legal Sex Female 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 LEAD DEVELOPER Gender Identity Not on file Sexual Orientation Not on file documented as of this encounter Plan of Treatment Not on file documented as of this encounter Procedures Procedure Name Priority Date/Time Associated Diagnosis Comments CBC WITHOUT DIFFERENTIAL Stat 11/10/2019 4:04 AM CDT MAGNESIUM LEVEL Stat 11/10/2019 4:04 AM CDT COMPREHENSIVE METABOLIC PANEL Stat 11/10/2019 4:04 AM CDT documented in this encounter Results * MAGNESIUM LEVEL (11/10/2019 4:04 AM CDT) MAGNESIUM 1.9 1.6 - 2.4 mg/dL 11/10/2019 6:56 AM CDT [facility] [employer] [facility] Blood Collection / Unknown 11/10/2019 4:04 AM CDT 11/10/2019 6:23 AM CDT us Elio Luevano MD CHEMISTRY ORDERABLES Final Resu lt [facility] [address] [place] [address] * (ABNORMAL) COMPREHENSIVE METABOLIC PANEL (11/10/2019 4:04 AM CDT) SODIUM 138 136 - 145 mmol/L 11/10/2019 6:56 AM CDT [facility] POTASSIUM 3.8 3.5 - 5.1 mmol/L 11/10/2019 6:56 AM CDT [facility] CHLORIDE 100 98 - 107 mmol/L 11/10/2019 6:56 AM CDT [facility] CO2 26 22 - 29 mmol/L 11/10/2019 6:56 AM CDT [facility] CALCIUM 9.1 8.8 - 10.2 mg/dL 11/10/2019 6:56 AM T [facility] BUN 28(H) 8 - 23 mg/dL 11/10/2019 6:56 AM T [facility] CREATININE 0.89 0.51 - 0.95 mg/dL 11/10/2019 6:56 AM T [facility] Comment:The GFR result is no t clinically significant on patients <18 or >70 years of age. GLUCOSE 146(H) 74 - 99 mg/dL 11/10/2019 6:56 AM T [facility] TOTAL PROTEIN 6.8 6.4 - 8.3 g/dL 11/10/2019 6:56 AM T [facility] ALBUMIN 3.2(L) 3.5 - 5.2 g/dL 11/10/2019 6:56 AM T [facility] BILIRUBIN TOTAL 0.4 0.2 - 1.0 mg/dL 11/10/2019 6:56 AM CDT [facility] ALKALINE PHOSPHATASE 148(H) 35 - 104 U/L 11/10/2019 6:56 AM T [facility] AST 29 10 - 35 U/L 11/10/2019 6:56 AM CDT [facility] ALT 17 <=35 U/L 11/10/2019 6:56 AM CDT [facility] GFR >60 mL/min/1.7 3 sq meter 11/10/2019 6:56 AM CDT [facility] Comment: eGFR has not been validated [...] result. GFR, >60 mL/min/1.7 3 sq meter 11/10/2019 6:56 AM CDT [facility] ANION GAP 12 9 - 20 mmol/L 11/10/2019 6:56 AM T [facility] Blood Collection / Unknown 11/10/2019 4:04 AM CDT 11/10/2019 6:23 AM CDT us Elio Luevano MD CHEMISTRY ORDERABLES Final Resu lt [facility] [address] [place] [address] * (ABNORMAL) CBC WITHOUT DIFFERENTIAL (11/10/2019 4:04 AM CDT) WBC 15.3(H) 4.8 - 10.8 K/uL 11/10/2019 6:32 AM CDT [facility] RBC 3.15(L) 4.20 - 5.40 M/uL 11/10/2019 6:32 AM CDT [facility] HEMOGLOBIN 9.2(L) 12.0 - 16.0 g/dL 11/10/2019 6:32 AM CDT [facility] HEMATOCRIT 29.1(L) 36.0 - 46.0 % 11/10/2019 6:32 AM CDT [facility] MCV 92.4 84.0 - 103.0 fL 11/10/2019 6:32 AM CDT [facility] MCH 29.2 27.0 - 34.0 pg 11/10/2019 6:32 AM CDT [facility] MCHC 31.6 30.0 - 35.0 g/dL 11/10/2019 6:32 AM CDT [facility] PLATELETS 191 140 - 440 K/uL 11/10/2019 6:32 AM CDT [facility] MPV 10.7 8.9 - 12.8 fL 11/10/2019 6:32 AM CDT [facility] RDW 14.4 11.0 - 14.5 % 11/10/2019 6:32 AM CDT [facility] RDW-STDEV 47.8 37.0 - 54.0 fL 11/10/2019 6:32 AM T [facility] Blood Collection / Unknown 11/10/2019 4:04 AM CDT 11/10/2019 6:23 AM CDT us Elio Luevano MD HEMATOLOGY ORDERABLES Final Res ult [facility] [address] [place] [address] documented in this encounter Visit Diagnoses Not on filedocumented in this encounter
--- OUTSIDE RECORDS SUMMARY | 2025-01-26 09:45 | XMS_ITS | Encounter Summary ---
Author Organization [facility] Address [address] [place] [address] Care Team Providers Care Motion Picture Film Examiner Name Role Phone Unavailable Primary Care Provider Unavailabl e Encounter Details Date Type Department Care Team (Late st Contact Info) Description 11/02/2019 Lab Requisition 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
--- OUTSIDE RECORDS SUMMARY | 2025-01-26 09:45 | XMS_ITS | Encounter Summary ---
Author Organization [facility] Address [address] 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
--- OUTSIDE RECORDS SUMMARY | 2025-01-26 09:45 | XMS_ITS | Encounter Summary ---
Author Organization [facility] Address [address] [place] [address] Care Team Providers Care Director Of Federal Sales Name Role Phone Unavailable Primary Care Provider Unavailabl e Encounter Details Date Type Department Care Team (Latest Contact Info) Description 12/04/1999 Outpatient Historical [facility] Family Medicine [place] [address] [phone] Venecia March, DO [address] [place] [address] Abdominal pain, epigastric (Primary Dx); Unspecified hemorrhoids without mention of complication Social History Tobacco Use Types Packs/Day Years Used Date Smoking Tobacco: Never Assessed Comments Unknown Sex and Gender Information Value Date Recorded Sex Assigned at Not on file Legal Sex Female 3:20 AM CLOUD ARCHITECT Gender Identity Not on file Sexual Orientation Not on file documented as of this encounter Plan of Treatment Not on file documented as of this encounter Visit Diagnoses Diagnosis Abdominal pain, epigastric- Primary Unspecified hemorrhoids without mention of complication documented in this encounter
--- OUTSIDE RECORDS SUMMARY | 2025-01-26 09:45 | XMS_ITS | Encounter Summary ---
Author Organization [facility] Address [address] [place] [address] Care Team Providers Care Die Press Operator Name Role Phone Unavailable Primary Care Provider Unavailabl e Encounter Details Date Type Department Care Team (Late st Contact Info) Description 11/19/2019 Lab Requisition [facility] Laboratory Services [address] [place] [address] [place] [phone] [place] [address] [place] [address] Social History Tobacco Use Types Packs/Day Years Used Date Smoking Tobacco: Never Assessed Comments Unknown Sex and Gender Information Value Date Recorded Sex Assigned at Not on file Legal Sex Female 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 LINEN 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 Gender Identity Not on file Sexual Orientation Not on file documented as of this encounter Plan of Treatment Not on file documented as of this encounter Procedures Procedure Name Priority Date/Time Associated Diagnosis Comments CBC WITH DIFFERENTIAL Stat 11/19/2019 9:00 AM CDT documented in this encounter Results * (ABNORMAL) CBC WITH DIFFERENTIAL (11/19/2019 9:00 AM CDT) WBC 9.2 4.8 - 10.8 K/uL 11/19/2019 10:21 AM CDT [facility] RBC 2.94(L) 4.20 - 5.40 M/uL 11/19/2019 10:21 AM CDT [facility] HEMOGLOBIN 8.9(L) 12.0 - 16.0 g/dL 11/19/2019 10:21 AM CDT [facility] HEMATOCRIT 28.2(L) 36.0 - 46.0 % 11/19/2019 10:21 AM [facility] [employer] [facility] MCV 95.9 84.0 - 103.0 fL 11/19/2019 10:21 AM [facility] [employer] [facility] MCH 30.3 27.0 - 34.0 pg 11/19/2019 10:21 AM [facility] [employer] [facility] MCHC 31.6 30.0 - 35.0 g/dL 11/19/2019 10:21 AM [facility] [employer] [facility] RDW 15.9(H) 11.0 - 14.5 % 11/19/2019 10:21 AM [facility] [employer] [facility] RDW-STDEV 53.5 37.0 - 54.0 fL 11/19/2019 10:21 AM [facility] [employer] [facility] PLATELETS 138(L) 140 - 440 K/uL 11/19/2019 10:21 AM [facility] [employer] [facility] MPV 10.7 8.9 - 12.8 fL 11/19/2019 10:21 AM [facility] [employer] [facility] NEUTROPHILS 61 42 - 75 % 11/19/2019 10:21 AM [facility] [employer] [facility] LYMPHOCYTES 23(L) 24 - 44 % 11/19/2019 10:21 AM [facility] [employer] [facility] MONOCYTES 10 2 - 10 % 11/19/2019 10:21 AM [facility] [employer] [facility] EOSINOPHILS 4 0 - 7 % 11/19/2019 10:21 AM [facility] [employer] [facility] BASOPHILS 1 0 - 1 % 11/19/2019 10:21 AM [facility] [employer] [facility] IMMATURE GRANULOCYTES 1 0 - 2 % 11/19/2019 10:21 AM [facility] [employer] [facility] NEUTROPHIL ABSOLUTE 5.62 2.00 - 8.00 K/uL 11/19/2019 10:21 AM [facility] [employer] [facility] LYMPHOCYTE ABSOLUTE 2.16 1.20 - 4.00 K/uL 11/19/2019 10:21 AM [facility] [employer] [facility] MONOCYTE ABSOLUTE 0.95(H) 0.10 - 0.60 K/uL 11/19/2019 10:21 AM [facility] [employer] [facility] EOSINOPHIL ABSOLUTE 0.37 0.00 - 0.70 K/uL 11/19/2019 10:21 AM CDT [facility] BASOPHILS ABSOLUTE 0.07 0.00 - 0.20 K/uL 11/19/2019 10:21 AM CDT [facility] IMMATURE GRANULOCYTES ABSOLUTE 0.06 0.00 - 0.10 K/uL 11/19/2019 10:21 AM CDT [facility] Blood Collection / Unknown 11/19/2019 9:00 AM CDT 11/19/2019 9:24 AM CDT Narrative [facility] - 11/19/2019 10:21 AM CDT Fibrin on slide - platelet count may be higher than reported us Elio Luevano MD HEMATOLOGY ORDERABLES Final Res ult [facility] [address] [place] [address] documented in this encounter Visit Diagnoses Not on filedocumented in this encounter
--- OUTSIDE RECORDS SUMMARY | 2025-01-26 09:45 | XMS_ITS | Encounter Summary ---
Author Organization [facility] Address [address] [place] [address] Care Team Providers Care Ethnology Teacher Name Role Phone Unavailable Primary Care Provider Unavailabl e Encounter Details Date Type Department Care Team (Late st Contact Info) Description 11/02/2019 Lab Requisition [facility] Laboratory Services [address] [place] [address] [place] [place] [phone] [place] [address] [place] [address] Social History Tobacco Use Types Packs/Day Years Used Date Smoking Tobacco: Never Assessed Comments Unknown Sex and Gender Information Value Date Recorded Sex Assigned at Not on file Legal Sex Female 3:20 AM 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 TEAM 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 Gender Identity Not on file Sexual Orientation Not on file documented as of this encounter Plan of Treatment Not on file documented as of this encounter Procedures Procedure Name Priority Date/Time Associated Diagnosis Comments CBC WITH DIFFERENTIAL Stat 11/02/2019 4:03 AM CDT PHOSPHORUS Stat 11/02/2019 4:03 AM CDT MAGNESIUM LEVEL Stat 11/02/2019 4:03 AM CDT COMPREHENSIVE METABOLIC PANEL Stat 11/02/2019 4:03 AM CDT documented in this encounter Results * PHOSPHORUS (11/02/2019 4:03 AM CDT) PHOSPHORUS 3.0 2.5 - 4.5 mg/dL 11/02/2019 10:12 AM CDT [facility] [employer] [facility] Blood Collection / Unknown 11/02/2019 4:03 AM CDT 11/02/2019 9:51 AM CDT Elio Luevano MD CHEMISTRY ORDERABLES Final Resu lt Performing Organization Address [facility] Co de Phone Number [facility] [address] [place] [address] * MAGNESIUM LEVEL (11/02/2019 4:03 AM CDT) Pathologist [facility] MAGNESIUM 2.3 1.6 - 2.4 mg/dL 11/02/2019 10:12 AM CDT [facility] Blood Collection / Unknown 11/02/2019 4:03 AM CDT 11/02/2019 9:51 AM CDT Elio Luevano MD CHEMISTRY ORDERABLES Final Resu lt Performing Organization Address [facility] de Phone Number [place] [phone] [place] [address] * (ABNORMAL) CBC WITH DIFFERENTIAL (11/02/2019 4:03 AM CDT) Pathologist [facility] WBC 13.2(H) 4.8 - 10.8 K/uL 11/02/2019 9:59 AM CDT [facility] RBC 3.19(L) 4.20 - 5.40 M/uL 11/02/2019 9:59 AM CDT [facility] HEMOGLOBIN 9.4(L) 12.0 - 16.0 g/dL 11/02/2019 9:59 AM CDT [facility] HEMATOCRIT 31.0(L) 36.0 - 46.0 % 11/02/2019 9:59 AM CDT [facility] MCV 97.2 84.0 - 103.0 fL 11/02/2019 9:59 AM CDT [facility] MCH 29.5 27.0 - 34.0 pg 11/02/2019 9:59 AM CDT [facility] MCHC 30.3 30.0 - 35.0 g/dL 11/02/2019 9:59 AM CDT [facility] RDW 13.6 11.0 - 14.5 % 11/02/2019 9:59 AM [facility] RDW-STDEV 48.2 37.0 - 54.0 fL 11/02/2019 9:59 AM [facility] PLATELETS 248 140 - 440 K/uL 11/02/2019 9:59 AM [facility] MPV 10.0 8.9 - 12.8 fL 11/02/2019 9:59 [facility] NEUTROPHILS 76(H) 42 - 75 % 11/02/2019 9:59 AM [facility] LYMPHOCYTES 9(L) 24 - 44 % 11/02/2019 9:59 AM [facility] MONOCYTES 9 2 - 10 % 11/02/2019 9:59 AM [facility] EOSINOPHILS 4 0 - 7 % 11/02/2019 9:59 AM [facility] BASOPHILS 1 0 - 1 % 11/02/2019 9:59 AM [facility] IMMATURE GRANULOCYTES 1 0 - 2 % 11/02/2019 9:59 AM [facility] NEUTROPHIL ABSOLUTE 9.96(H) 2.00 - 8.00 K/uL 11/02/2019 9:59 AM [facility] LYMPHOCYTE ABSOLUTE 1.24 1.20 - 4.00 K/uL 11/02/2019 9:59 AM [facility] MONOCYTE ABSOLUTE 1.20(H) 0.10 - 0.60 K/uL 11/02/2019 9:59 AM [facility] EOSINOPHIL ABSOLUTE 0.52 0.00 - 0.70 K/uL 11/02/2019 9:59 AM [facility] BASOPHILS ABSOLUTE 0.09 0.00 - 0.20 K/uL 11/02/2019 9:59 AM [facility] IMMATURE GRANULOCYTES ABSOLUTE 0.14(H) 0.00 - 0.10 K/uL 11/02/2019 9:59 AM [facility] Blood Collection / Unknown 11/02/2019 4:03 AM CDT 11/02/2019 9:51 AM CDT us Elio Luevano MD HEMATOLOGY ORDERABLES Final Res ult [facility] [address] [place] [address] * (ABNORMAL) COMPREHENSIVE METABOLIC PANEL (11/02/2019 4:03 AM CDT) SODIUM 144 136 - 145 mmol/L 11/02/2019 10:12 AM CDT [facility] POTASSIUM 3.9 3.5 - 5.1 mmol/L 11/02/2019 10:12 AM CDT [facility] CHLORIDE 105 98 - 107 mmol/L 11/02/2019 10:12 AM CDT [facility] CO2 29 22 - 29 mmol/L 11/02/2019 10:12 AM CDT [facility] CALCIUM 8.3(L) 8.8 - 10.2 mg/dL 11/02/2019 10:12 AM CDT [facility] BUN 30(H) 8 - 23 mg/dL 11/02/2019 10:12 AM CDT [facility] CREATININE 1.06(H) 0.51 - 0.95 mg/dL 11/02/2019 10:12 AM T [facility] Comment:The GFR result is no t clinically significant on patients <18 or >70 years of age. GLUCOSE 114(H) 74 - 99 mg/dL 11/02/2019 10:12 AM CDT [facility] TOTAL PROTEIN 6.4 6.4 - 8.3 g/dL 11/02/2019 10:12 AM CDT [facility] ALBUMIN 2.8(L) 3.5 - 5.2 g/dL 11/02/2019 10:12 AM CDT [facility] BILIRUBIN TOTAL 0.7 0.2 - 1.0 mg/dL 11/02/2019 10:12 AM CDT [facility] ALKALINE PHOSPHATASE 116(H) 35 - 104 U/L 11/02/2019 10:12 AM [facility] AST 33 10 - 35 U/L 11/02/2019 10:12 AM [facility] ALT 20 <=35 U/L 11/02/2019 10:12 AM T [facility] GFR 51 mL/min/1. 73 sq meter 11/02/2019 10:12 AM [facility] Comment: eGFR has not [...] result. GFR, >60 mL/min/1. 73 sq meter 11/02/2019 10:12 AM [facility] ANION GAP 10 9 - 20 mmol/L 11/02/2019 10:12 AM [facility] Blood Collection / Unknown 11/02/2019 4:03 AM CDT 11/02/2019 9:51 AM CDT us Elio Luevano MD CHEMISTRY ORDERABLES Final Resu lt [facility] [address] [place] [address] documented in this encounter Visit Diagnoses Not on filedocumented in this encounter
--- OUTSIDE RECORDS SUMMARY | 2025-01-26 09:45 | XMS_ITS | Encounter Summary ---
Author Organization [facility] Address [address] [place] [address] Care Team Providers Care Beer Cooler Name Role Phone Unavailable Primary Care Provider Unavailabl e Encounter Details Date Type Department Care Team (Late st Contact Info) Description 11/11/2019 Lab Requisition [facility] Laboratory Services [address] [place] [address] [place] [phone] Kathrine Toney FNP NO ADDRESS ON FILE Social History Tobacco Use Types Packs/Day Years Used Date Smoking Tobacco: Never Assessed Comments Unknown Sex and Gender Information Value Date Recorded Sex Assigned at Not on file Legal Sex Female 3:20 AM REMITTANCE CLERK Gender Identity Not on file Sexual Orientation Not on file documented as of this encounter Plan of Treatment Not on file documented as of this encounter Procedures Procedure Name Priority Date/Time Associated Diagnosis Comments VANCOMYCIN LEVEL TROUGH Stat 11/11/2019 8:30 PM CDT documented in this encounter Results * VANCOMYCIN LEVEL TROUGH (11/11/2019 8:30 PM CDT) VANCOMYCIN, TROUGH 14.9 10.0 - 20.0 ug/mL 11/12/2019 12:01 AM CDT [facility] [employer] [facility] Blood BLOOD SPECIMEN / Unknown Venipuncture / Unknown 11/11/2019 8:30 PM CDT 11/11/2019 11:24 PM CDT Kathrine FERNANDEZ CHEMISTRY ORDERABLES Final Result [facility] [employer] [facility] [address] [place] [address] documented in this encounter Visit Diagnoses Not on filedocumented in this encounter
--- OUTSIDE RECORDS SUMMARY | 2025-01-26 09:45 | XMS_ITS | Encounter Summary ---
Author Organization [facility] Address [address] Hernandez: [place] [address] Care Team Providers Care Securities And Real Estate Director Name Role Phone Unavailable Primary Care Provider Unavailabl e Encounter Details Date Type Department Care Team (Late st Contact Info) Description 02/25/2000 Outpatient Historical Elio Bower MD NO ADDRESS ON FILE Social History Tobacco Use Types Packs/Day Years Used Date Smoking Tobacco: Never Assessed Comments Unknown Sex and Gender Information Value Date Recorded Sex Assigned at Not on file Legal Sex Female 3:20 AM VIDEOTAPE RECORDING ENGINEER Gender Identity Not on file Sexual Orientation Not on file documented as of this encounter Plan of Treatment Not on file documented as of this encounter Visit Diagnoses Not on filedocumented in this encounter
--- OUTSIDE RECORDS SUMMARY | 2025-01-26 09:45 | XMS_ITS | Encounter Summary ---
Author Organization [facility] Address [address] [place] [address] Care Team Providers Care Desktop Engineer Name Role Phone Unavailable Primary Care Provider Unavailabl e Encounter Details Date Type Department Care Team (Late st Contact Info) Description 11/03/2019 Lab Requisition 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 Gender Identity Not on file Sexual Orientation Not on file documented as of this encounter Plan of Treatment Not on file documented as of this encounter Procedures Procedure Name Priority Date/Time Associated Diagnosis Comments CBC WITHOUT DIFFERENTIAL Stat 11/03/2019 3:20 AM CDT MAGNESIUM LEVEL Stat 11/03/2019 3:20 AM CDT COMPREHENSIVE METABOLIC PANEL Stat 11/03/2019 3:20 AM CDT documented in this encounter Results * MAGNESIUM LEVEL (11/03/2019 3:20 AM CDT) MAGNESIUM 2.3 1.6 - 2.4 mg/dL 11/03/2019 7:23 AM CDT [facility] [employer] [facility] Blood Collection / Unknown 11/03/2019 3:20 AM CDT 11/03/2019 7:05 AM CDT us Elio Luevano MD CHEMISTRY ORDERABLES Final Resu lt [facility] [address] [place] [address] * (ABNORMAL) COMPREHENSIVE METABOLIC PANEL (11/03/2019 3:20 AM CDT) SODIUM 146(H) 136 - 145 mmol/L 11/03/2019 7:23 AM T [facility] POTASSIUM 3.7 3.5 - 5.1 mmol/L 11/03/2019 7:23 AM T [facility] CHLORIDE 107 98 - 107 mmol/L 11/03/2019 7:23 AM T [facility] CO2 31(H) 22 - 29 mmol/L 11/03/2019 7:23 AM T [facility] CALCIUM 8.4(L) 8.8 - 10.2 mg/dL 11/03/2019 7:23 AM T [facility] BUN 32(H) 8 - 23 mg/dL 11/03/2019 7:23 AM [facility] CREATININE 1.04(H) 0.51 - 0.95 mg/dL 11/03/2019 7:23 AM T [facility] Comment:The GFR result is no t clinically significant on patients <18 or >70 years of age. GLUCOSE 144(H) 74 - 99 mg/dL 11/03/2019 7:23 AM T [facility] TOTAL PROTEIN 6.1(L) 6.4 - 8.3 g/dL 11/03/2019 7:23 AM T [facility] ALBUMIN 3.0(L) 3.5 - 5.2 g/dL 11/03/2019 7:23 AM T [facility] BILIRUBIN TOTAL 0.6 0.2 - 1.0 mg/dL 11/03/2019 7:23 AM T [facility] ALKALINE PHOSPHATASE 133(H) 35 - 104 U/L 11/03/2019 7:23 AM [facility] AST 32 10 - 35 U/L 11/03/2019 7:23 AM T [facility] ALT 19 <=35 U/L 11/03/2019 7:23 AM CDT [facility] GFR 52 mL/min/1. 73 sq meter 11/03/2019 7:23 AM T [facility] Comment: eGFR has not been validated for [...] result. GFR, >60 mL/min/1. 73 sq meter 11/03/2019 7:23 AM T [facility] ANION GAP 8(L) 9 - 20 mmol/L 11/03/2019 7:23 AM T [facility] Blood Collection / Unknown 11/03/2019 3:20 AM CDT 11/03/2019 7:05 AM CDT us Elio Luevano MD CHEMISTRY ORDERABLES Final Resu lt Performing Organization Address City/State/[facility] Co de Phone Number [facility] [address] [place] [address] * (ABNORMAL) CBC WITHOUT DIFFERENTIAL (11/03/2019 3:20 AM CDT) WBC 11.8(H) 4.8 - 10.8 K/uL 11/03/2019 7:12 AM T [facility] RBC 3.03(L) 4.20 - 5.40 M/uL 11/03/2019 7:12 AM T [facility] HEMOGLOBIN 9.0(L) 12.0 - 16.0 g/dL 11/03/2019 7:12 AM T [facility] HEMATOCRIT 29.0(L) 36.0 - 46.0 % 11/03/2019 7:12 AM CDT [facility] MCV 95.7 84.0 - 103.0 fL 11/03/2019 7:12 AM CDT [facility] MCH 29.7 27.0 - 34.0 pg 11/03/2019 7:12 AM CDT [facility] MCHC 31.0 30.0 - 35.0 g/dL 11/03/2019 7:12 AM CDT [facility] PLATELETS 272 140 - 440 K/uL 11/03/2019 7:12 AM CDT [facility] MPV 10.1 8.9 - 12.8 fL 11/03/2019 7:12 AM CDT [facility] RDW 13.8 11.0 - 14.5 % 11/03/2019 7:12 AM T [facility] RDW-STDEV 47.9 37.0 - 54.0 fL 11/03/2019 7:12 AM T [facility] Blood Collection / Unknown 11/03/2019 3:20 AM CDT 11/03/2019 7:05 AM CDT us Elio Luevano MD HEMATOLOGY ORDERABLES Final Res ult [facility] [address] [place] [address] documented in this encounter Visit Diagnoses Not on filedocumented in this encounter
--- OUTSIDE RECORDS SUMMARY | 2025-01-26 09:45 | XMS_ITS | Encounter Summary ---
Author Organization [facility] Address [address] [place] [address] Care Team Providers Care Steel Spar Operator Name Role Phone Unavailable Primary Care Provider Unavailabl e Encounter Details Date Type Department Care Team (Late st Contact Info) Description 11/10/2019 Lab Requisition [facility] Laboratory 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 Gender Identity Not on file Sexual Orientation Not on file documented as of this encounter Plan of Treatment Not on file documented as of this encounter Procedures Procedure Name Priority Date/Time Associated Diagnosis Comments BLOOD CULTURE Stat 11/10/2019 11:55 AM CDT documented in this encounter Results * BLOOD CULTURE (11/10/2019 11:55 AM CDT) BLOOD CULTURE No growth 11/15/2019 12:49 PM CDT [facility] [employer] [facility] Blood (Peripheral) Collection / Unknown 11/10/2019 11:55 AM CDT 11/10/2019 12:18 PM CDT us Cristiane Minor NP MICROBIOLOGY - GENERAL ORDERABL ES Final Result [facility] [employer] [facility] [address] [place] [address] documented in this encounter Visit Diagnoses Not on filedocumented in this encounter
--- OUTSIDE RECORDS SUMMARY | 2025-01-26 09:45 | XMS_ITS | Encounter Summary ---
Author Organization [facility] Address [address] [place] [address] Care Team Providers Care Command Center Analyst Name Role Phone Unavailable Primary Care Provider Unavailabl e Encounter Details Date Type Department Care Team (Late st Contact Info) Description 11/17/2019 Lab Requisition [facility] Laboratory Services [address] [place] [phone] Kathrine Toney, STAFF HOME THERAPY RN NO ADDRESS ON FILE Social History Tobacco Use Types Packs/Day Years Used Date Smoking Tobacco: Never Assessed Comments Unknown Sex and Gender Information Value Date Recorded Sex Assigned at Not on file 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 Gender Identity Not on file Sexual Orientation Not on file documented as of this encounter Plan of Treatment Not on file documented as of this encounter Procedures Procedure Name Priority Date/Time Associated Diagnosis Comments 2019 NOVEL CORONAVIRUS (COVID-19) PCR DETECTION Stat 11/17/2019 6:11 PM CDT documented in this encounter Results * 2019 NOVEL CORONAVIRUS (COVID-19) PCR DETECTION (11/17/2019 6:11 PM CDT) COVID-19 PCR NOT DETECTED NOT DETECTED 11/19/2019 5:38 AM CDT [facility] Comment: A Not Detected (negative) test result for this test means that SARS- CoV-2 RNA was not present in the specimen above the limit of detection. A negative result does not rule out the possibility of COVID-19 and should not be used as the sole basis for treatment or patient management decisions. If COVID-19 is still suspected, based on exposure history together with other clinical findings, re-testing should be considered in consultation with public health authorities. Laboratory test results should always be considered in the context of clinical observations and epidemiological data in making a final diagnosis and patient management decisions. Please review the Fact Sheets and FDA authorized labeling available for health care providers and patients using the following websites: https://www.[employer].Genero/home/Covid-19/HCP/NAAT/fact-sheet2 https://www.[employer]ero/home/Covid-19/Patients/NAAT/ fact-sheet2 This test has been authorized by the FDA under an Emergency Use Authorization (EUA) for use by authorized laboratories. Due to the current public health emergency, [employer] is receiving a high volume of samples from a wide variety of swabs and media for COVID-19 testing. In order to serve patients during this public health crisis, samples from appropriate clinical sources are being tested. Negative test results derived from specimens received in non-commercially manufactured viral collection and transport media, or in media and sample collection kits not yet authorized by FDA for COVID-19 testing should be cautiously evaluated and the patient potentially subjected to extra precautions such as additional clinical monitoring, including collection of an additional specimen. Methodology: Nucleic Acid Amplification Test (NAAT) includes PCR or TMA Additional information about COVID-19 can be found at the [employer] website: www.[employer]ero/Covid19. Upper Respiratory ENTIRE NASOPHARYNX / Unknown Collection / Unknown 11/17/2019 6:11 PM CDT 11/17/2019 8:21 PM CDT Narrative [facility] - 11/19/2019 5:38 AM CDT Performing Organization Information: Site ID: [id number] Name: [facility] Address: [address] [address] Director: Guerrero Bland D.O., MPH Kathrine FERNANDEZ MICROBIOLOGY - GENERAL CHARMAINE PAYAN Final Result [facility] [phone] documented in this encounter Visit Diagnoses Not on filedocumented in this encounter
--- OUTSIDE RECORDS SUMMARY | 2025-01-26 09:45 | XMS_ITS | Encounter Summary ---
Author Organization [facility] Address [address] [place] [address] Care Team Providers Care Rn Advanced Name Role Phone Unavailable Primary Care Provider Unavailabl e Encounter Details Date Type Department Care Team (Latest Contact Info) Description 02/17/2000 Outpatient Historical [facility] Family Medicine [place] [id number] [phone] Venecia March, DO [address] [place] [address] Esophageal reflux (Primary Dx); Unspecified essential hypertension; Unspecified hemorrhoids without mention of complication Social History Tobacco Use Types Packs/Day Years Used Date Smoking Tobacco: Never Assessed Comments Unknown Sex and Gender Information Value Date Recorded Sex Assigned at Not on file 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
--- OUTSIDE RECORDS SUMMARY | 2025-01-26 09:45 | XMS_ITS | Encounter Summary ---
Author Organization [facility] Address [address] [place] [address] Care Team Providers Care Police Artist Name Role Phone Unavailable Primary Care Provider Unavailabl e Encounter Details Date Type Department Care Team (Latest Contact Info) Description 02/06/1998 Outpatient Historical [facility] Family Medicine [address] [phone] Pavel Montoya MD NO ADDRESS ON FILE Other disorders of Eustachian tube(381.89) (Primary Dx) Social History Tobacco Use Types Packs/Day Years Used Date Smoking Tobacco: Never Assessed Comments Unknown Sex and Gender Information Value Date Recorded Sex Assigned at Not on file Legal Sex Female 3:20 AM DIRECTOR STYLE Gender Identity Not on file Sexual Orientation Not on file documented as of this encounter Plan of Treatment Not on file documented as of this encounter Visit Diagnoses Diagnosis Other disorders of Eustachian tube(381.89)- Primary Other disorders of Eustachian tube documented in this encounter
--- OUTSIDE RECORDS SUMMARY | 2025-01-26 09:45 | XMS_ITS | Encounter Summary ---
Author Organization [facility] Address [address] [place] [address] Care Team Providers Care Stage Set Designer Name Role Phone Unavailable Primary Care Provider Unavailabl e Encounter Details Date Type Department Care Team (Latest Contact Info) Description 06/28/1998 Outpatient Historical [facility] Family Medicine [address] [phone] Pavel Montoya MD NO ADDRESS ON FILE Throat pain (Primary Dx) Social History Tobacco Use Types Packs/Day Years Used Date Smoking Tobacco: Never Assessed Comments Unknown Sex and Gender Information Value Date Recorded Sex Assigned at Not on file Legal Sex Female 3:20 AM PLUG PASTER Gender Identity Not on file Sexual Orientation Not on file documented as of this encounter Plan of Treatment Not on file documented as of this encounter Visit Diagnoses Diagnosis Throat pain- Primary documented in this encounter
--- OUTSIDE RECORDS SUMMARY | 2025-01-26 09:45 | XMS_ITS | Encounter Summary ---
Author Organization [facility] Address [address] [place] [address] Care Team Providers Care Note Taker Name Role Phone Unavailable Primary Care Provider Unavailabl e Encounter Details Date Type Department Care Team (Late st Contact Info) Description 11/19/2019 Lab Requisition [facility] Services [address] [place] [phone] Elio Luevano MD [address] [place] [phone] Social History Tobacco Use Types Packs/Day Years Used Date Smoking Tobacco: Never Assessed Comments Unknown Sex and Gender Information Value Date Recorded Sex Assigned at Not on file Legal 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
--- OUTSIDE RECORDS SUMMARY | 2025-01-26 09:45 | XMS_ITS | Encounter Summary ---
Author Organization [facility] Address [address] [place] [address] Care Team Providers Care Log Sawyer Name Role Phone Unavailable Primary Care Provider Unavailabl e Encounter Details Date Type Department Care Team (Latest Contact Info) Description 08/19/1999 Outpatient Historical [facility] Family Medicine [address] [phone] Pavel Montoya MD NO ADDRESS ON FILE Osteoarthrosis, unspecified whether generalized or localized, unspecified site (Primary Dx); Unspecified endocrine disorder; Other hammer toe (acquired) Social History Tobacco Use Types Packs/Day Years Used Date Smoking Tobacco: Never Assessed Comments Unknown Sex and Gender Information Value Date Recorded Sex Assigned at Not on file 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
--- OUTSIDE RECORDS SUMMARY | 2025-01-26 09:45 | XMS_ITS | Encounter Summary ---
Author Organization [facility] Address [address] [place] [address] Care Team Providers Care Route Service Manager Name Role Phone Unavailable Primary Care Provider Unavailabl e Encounter Details Date Type Department Care Team (Latest Contact Info) Description 10/07/1999 Outpatient Historical [facility] Family Medicine [address] [phone] Pavel Montoya MD NO ADDRESS ON FILE Impacted cerumen (Primary Dx); Dermatophytosis of foot Social History Tobacco Use Types Packs/Day Years Used Date Smoking Tobacco: Never Assessed Comments Unknown Sex and Gender Information Value Date Recorded Sex Assigned at Not on file Legal Sex Female 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
--- OUTSIDE RECORDS SUMMARY | 2025-01-26 09:45 | XMS_ITS | Encounter Summary ---
Author Organization [facility] Address [address] [place] [address] Care Team Providers Care Print Binding And Finishing Worker Name Role Phone Unavailable Primary Care Provider Unavailabl e Encounter Details Date Type Department Care Team (Late st Contact Info) Description 11/07/2019 Lab Requisition [facility] [address] [place] [phone] Carlos Tripp, DO [address] [place] [address] Social History Tobacco Use Types Packs/Day Years Used Date Smoking Tobacco: Never Assessed Comments Unknown Sex and Gender Information Value Date Recorded Sex Assigned at Not on file Legal Sex Female 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 Blood (Peripheral) Collection / Unknown 11/07/2019 9:30 PM CDT 11/07/2019 11:19 PM CDT Carlos Tripp DO MICROBIOLOGY - GENERAL ORD ERABLES Final Result [facility] [employer] [facility] [address] [place] [address] documented in this encounter Visit Diagnoses Not on filedocumented in this encounter
--- OUTSIDE RECORDS SUMMARY | 2025-01-26 09:45 | XMS_ITS | Encounter Summary ---
Author Organization [facility] Address [address] [place] [address] Care Team Providers Care Swine Genetics Researcher Name Role Phone Unavailable Primary Care Provider Unavailabl e Encounter Details Date Type Department Care Team (Late st Contact Info) Description 11/19/2019 Lab Requisition [facility] Laboratory Services [address] [place] [address] Kathrine Toney, TIRE BUFFER NO ADDRESS ON FILE Social History Tobacco Use Types Packs/Day Years Used Date Smoking Tobacco: Never Assessed Comments Unknown Sex and Gender Information Value Date Recorded Sex Assigned at Not on file 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
--- OUTSIDE RECORDS SUMMARY | 2025-01-26 09:45 | XMS_ITS | Encounter Summary ---
Author Organization [facility] Address [address] 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
--- OUTSIDE RECORDS SUMMARY | 2025-01-26 09:45 | XMS_ITS | Encounter Summary ---
Author Organization [facility] Address [address] [place] [address] Care Team Providers Care Pumping Station Engineer Name Role Phone Unavailable Primary Care Provider Unavailabl e Encounter Details Date Type Department Care Team (Latest Contact Info) Description 01/28/2002 Outpatient Historical [facility] Augustin Can MD ESOPHAGEAL REFLUX (Primary Dx) Social History Tobacco Use Types Packs/Day Years Used Date Smoking Tobacco: Never Assessed Comments Unknown Sex and Gender Information Value Date Recorded Sex Assigned at Not on file Legal Sex Female 3:20 AM HYDROTHERAPIST Gender Identity Not on file Sexual Orientation Not on file documented as of this encounter Plan of Treatment Not on file documented as of this encounter Visit Diagnoses Diagnosis Esophageal reflux- Primary documented in this encounter
--- OUTSIDE RECORDS SUMMARY | 2025-01-26 09:45 | XMS_ITS | Encounter Summary ---
Author Organization [facility] Address [address] [place] [address] Care Team Providers Care Perl Programmer Name Role Phone Unavailable Primary Care Provider Unavailabl e Encounter Details Date Type Department Care Team (Late st Contact Info) Description 11/07/2019 Lab Requisition [facility] Laboratory Services [address] [place] [phone] [place] [address] [place] [address] Social History Tobacco Use Types Packs/Day Years Used Date Smoking Tobacco: Never Assessed Comments Unknown Sex and Gender Information Value Date Recorded Sex Assigned at Not on file Legal Sex Female 3:20 AM ACCOUNTS RECEIVABLE MANAGER Gender Identity Not on file Sexual Orientation Not on file documented as of this encounter Plan of Treatment Not on file documented as of this encounter Procedures Procedure Name Priority Date/Time Associated Diagnosis Comments CBC WITHOUT DIFFERENTIAL Stat 11/07/2019 3:20 AM CDT MAGNESIUM LEVEL Stat 11/07/2019 3:20 AM CDT COMPREHENSIVE METABOLIC PANEL Stat 11/07/2019 3:20 AM CDT documented in this encounter Results * MAGNESIUM LEVEL (11/07/2019 3:20 AM CDT) MAGNESIUM 2.2 1.6 - 2.4 mg/dL 11/07/2019 7:25 AM CDT [facility] [employer] [facility] Blood Collection / Unknown 11/07/2019 3:20 AM CDT 11/07/2019 7:10 AM CDT us Elio Luevano MD CHEMISTRY ORDERABLES Final Resu lt [facility] [address] [place] [address] * (ABNORMAL) COMPREHENSIVE METABOLIC PANEL (11/07/2019 3:20 AM CDT) SODIUM 139 136 - 145 mmol/L 11/07/2019 7:25 AM CDT [facility] POTASSIUM 5.4(H) 3.5 - 5.1 mmol/L 11/07/2019 7:25 AM CDT [facility] Comment:Slightly hemolyzed. Result may be falsely elevated. CHLORIDE 101 98 - 107 mmol/L 11/07/2019 7:25 AM T [facility] CO2 29 22 - 29 mmol/L 11/07/2019 7:25 AM CDT [facility] CALCIUM 8.7(L) 8.8 - 10.2 mg/dL 11/07/2019 7:25 AM CDT [facility] BUN 25(H) 8 - 23 mg/dL 11/07/2019 7:25 AM CDT [facility] CREATININE 0.88 0.51 - 0.95 mg/dL 11/07/2019 7:25 AM CDT [facility] Comment:The GFR result is no t clinically significant on patients <18 or >70 years of age. GLUCOSE 107(H) 74 - 99 mg/dL 11/07/2019 7:25 AM CDT [facility] TOTAL PROTEIN 6.9 6.4 - 8.3 g/dL 11/07/2019 7:25 AM CDT [facility] ALBUMIN 3.2(L) 3.5 - 5.2 g/dL 11/07/2019 7:25 AM CDT [facility] BILIRUBIN TOTAL 0.4 0.2 - 1.0 mg/dL 11/07/2019 7:25 AM CDT [facility] ALKALINE PHOSPHATASE 111(H) 35 - 104 U/L 11/07/2019 7:25 AM CDT [facility] AST 37(H) 10 - 35 U/L 11/07/2019 7:25 AM CDT [facility] Comment:Hemolysis present. R esult may be falsely elevated. ALT 18 <=35 U/L 11/07/2019 7:25 AM CDT [facility] Comment:Hemolysis present. R esult may be falsely elevated. GFR >60 mL/min/1.7 3 sq meter 11/07/2019 7:25 AM CDT [facility] Comment: eGFR has not been validated [...] result. GFR, >60 mL/min/1.7 3 sq meter 11/07/2019 7:25 AM T [facility] ANION GAP 9 9 - 20 mmol/L 11/07/2019 7:25 AM T [facility] Blood Collection / Unknown 11/07/2019 3:20 AM CDT 11/07/2019 7:10 AM CDT us Elio Luevano MD CHEMISTRY ORDERABLES Final Resu lt [facility] [address] [place] [address] * (ABNORMAL) CBC WITHOUT DIFFERENTIAL (11/07/2019 3:20 AM CDT) WBC 10.2 4.8 - 10.8 K/uL 11/07/2019 7:13 AM CDT [facility] RBC 3.13(L) 4.20 - 5.40 M/uL 11/07/2019 7:13 AM CDT [facility] HEMOGLOBIN 9.6(L) 12.0 - 16.0 g/dL 11/07/2019 7:13 AM T [facility] HEMATOCRIT 30.0(L) 36.0 - 46.0 % 11/07/2019 7:13 AM T [facility] MCV 95.8 84.0 - 103.0 fL 11/07/2019 7:13 AM T [facility] MCH 30.7 27.0 - 34.0 pg 11/07/2019 7:13 AM T [facility] MCHC 32.0 30.0 - 35.0 g/dL 11/07/2019 7:13 AM T [facility] PLATELETS 220 140 - 440 K/uL 11/07/2019 7:13 AM [facility] MPV 10.5 8.9 - 12.8 fL 11/07/2019 7:13 AM [facility] RDW 14.6(H) 11.0 - 14.5 % 11/07/2019 7:13 AM [facility] RDW-STDEV 49.7 37.0 - 54.0 fL 11/07/2019 7:13 AM [facility] Blood Collection / Unknown 11/07/2019 3:20 AM CDT 11/07/2019 7:10 AM CDT us Elio Luevano MD HEMATOLOGY ORDERABLES Final Res ult [facility] [address] [place] [address] documented in this encounter Visit Diagnoses Not on filedocumented in this encounter
--- OUTSIDE RECORDS SUMMARY | 2025-01-26 09:45 | XMS_ITS | Encounter Summary ---
Author Organization [facility] Address [address] [place] [address] Care Team Providers Care Garment Looper Name Role Phone Unavailable Primary Care Provider Unavailabl e Encounter Details Date Type Department Care Team (Latest Contact Info) Description 01/15/2000 Outpatient Historical [facility] Family Medicine [place] [address] [phone] Venecia March, DO [address] [place] [address] Unspecified essential hypertension (Primary Dx); Esophageal reflux; Allergic rhinitis, cause unspecified Social History Tobacco Use Types Packs/Day Years Used Date Smoking Tobacco: Never Assessed Comments Unknown Sex and Gender Information Value Date Recorded Sex Assigned at Not on file Legal 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
--- OUTSIDE RECORDS SUMMARY | 2025-01-26 09:45 | XMS_ITS | Encounter Summary ---
Author Organization [facility] Address [address] [place] [address] Care Team Providers Care Towerman Name Role Phone Unavailable Primary Care Provider Unavailabl e Encounter Details Date Type Department Care Team (Latest Contact Info) Description 10/25/1998 Outpatient Historical [facility] Family Medicine [place] [address] [phone] Pavel Montoya MD NO ADDRESS ON FILE Cellulitis and abscess of unspecified site (Primary Dx); Enlargement of lymph nodes; Other symptoms referable to ankle and foot joint Social History Tobacco Use Types Packs/Day Years Used Date Smoking Tobacco: Never Assessed Comments Unknown Sex and Gender Information Value Date Recorded Sex Assigned at Not on file 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
--- NOTE | 2025-01-26 09:53 | XRR_ITS ---
PROCEDURE INFORMATION: Exam: XR Sacrum and Coccyx, 2 or More Views Exam date and time: 01/26/2025 10:06 AM Age: 79 years old Clinical indication: Injury or trauma; Fall; Blunt trauma (contusions or hematomas) TECHNIQUE: Imaging protocol: XR of the sacrum and coccyx, 2 or more views. COMPARISON: CR XR cervical spine 3V* [id number] 01/26/2025 9:55 AM FINDINGS: Bones/joints: Status post L4 and L5 vertebroplasty. Diffuse osteopenia limits evaluation for nondisplaced fractures. No acute fracture or dislocation. Soft tissues: Normal. XR/XR sacrum coccyx min 2V [id number] IMPRESSION: No acute fracture or dislocation.
--- NOTE | 2025-01-26 09:53 | XRR_ITS ---
PROCEDURE INFORMATION: Exam: XR Cervical Spine Exam date and time: 01/26/2025 9:55 AM Age: 79 years old Clinical indication: Injury or trauma; Fall; Blunt trauma TECHNIQUE: Imaging protocol: Radiologic exam of the cervical spine. Views: 2 or 3 views. COMPARISON: CR XR cervical spine fl/ex [id number] 06/26/2020 5:11 PM FINDINGS: Bones/joints: Status post median sternotomy. Vertebral body heights are preserved. No acute fracture. Multilevel degenerative disc disease and facet arthrosis in the cervical spine. Soft tissues: Unremarkable. Vasculature: Atherosclerotic calcifications of the aortic arch. XR/XR cervical spine 3V* [id number] IMPRESSION: No acute findings.
--- NOTE | 2025-01-26 09:59 | W.ED.FALL ---
HPI - Fall General: Chief Complaint: Fall Stated Complaint: fall Time Seen by Provider: 01/26/25 09:38 History of Present Illness: 72-year-old female who presents to the emergency room after a fall. She has a history of tardive dyskinesia complaining of tailbone and neck pain she denies striking her head there is no loss consciousness. No pain in her hips. No other injury. Associated symptoms-after fall: Denies abdominal pain, chest pain or neck pain Related Data Home Medications ?Medication ?Instructions ?Recorded ?Confirmed aspirin 81 mg tablet,delayed 81 mg PO QAM 08/27/23 12/27/24 release omeprazole 40 mg capsule,delayed 40 mg PO QAM 08/27/23 12/27/24 release peg 400-propylene glycol (PF) 0.4 1 drp ophthalmic (eye) QID PRN Dry 08/27/23 12/27/24 %-0.3 % eye drops in a dropperette Eyes (Systane (PF)) atorvastatin 80 mg tablet 80 mg PO QPM 09/16/23 12/27/24 B6 1.7 mg-folic 400 mcg-B12 2.4 1 cap PO DAILY 09/23/24 12/27/24 [id number]-coowqx-sccgvqmradvx oral capsule (Neuriva Plus Brain Performance) ascorbic acid (vitamin C) 500 mg 500 mg PO DAILY 09/23/24 12/27/24 capsule cholecalciferol (vitamin D3) 50 50 mcg PO DAILY 09/23/24 12/27/24 mcg (2,000 unit) capsule deutetrabenazine 24 mg 24 mg PO DAILY 09/23/24 12/27/24 tablet,extended release 24 hr (Austedo XR) kaxfsblh-lqo-bofw 4 mg-folic acid 1 tab PO DAILY 09/23/24 12/27/24 200 mcg-vit K 25 mcg-lutein tablet (Centrum Minis Women 50 Plus) nervive Nerve Relief Supplement 1 tab PO DAILY 09/23/24 12/27/24 oxymetazoline 0.05 % nasal mist 2 spray intranasal Q12H PRN 09/23/24 12/27/24 (Afrin (oxymetazoline)) Allergy Symptoms vitamins-lipotropics tablet 1 tab PO DAILY 09/23/24 12/27/24 cranberry 500 mg capsule 500 mg PO TID 10/08/24 12/27/24 Previous Rx's ?Medication ?Instructions ?Recorded Orthopedic shoes #1 ea 09/28/23 gabapentin 100 mg capsule 100 mg PO TID #270 caps 09/23/24 loratadine 10 mg tablet (Claritin) 10 mg PO DAILY #90 tabs 09/23/24 losartan 25 mg tablet 25 mg PO DAILY #100 tabs 09/26/24 amlodipine 10 mg tablet 10 mg PO QAM #100 tabs 09/28/24 metoprolol succinate 50 mg 50 mg PO QAM #90 tabs 11/28/24 tablet,extended release 24 hr ropinirole 1 mg tablet 1 mg PO BID #60 tabs 12/19/24 hydrocodone 7.5 mg-acetaminophen 1 tab PO Q6H PRN pain 30 days #120 01/13/25 325 mg tablet tabs Allergies Allergy/AdvReac Type Severity Reaction Status Date / Time metronidazole Allergy Unknown ALGY-Rash Verified 01/03/25 07:40 Review of Systems Const: Denies: fever(s) or chills Card: Denies: chest pain Resp: Denies: dyspnea GI: Denies: abdominal pain : Denies: dysuria, urinary frequency or urinary urgency Musc: Denies: neck pain or back pain Skin/Breast: Denies: rash PFSH ED PFSH: Medical History Degeneration of intervertebral disc of lumbar region with discogenic back pain and lower extremity pain History of pericarditis Thrombocytopenic disorder DM II (diabetes mellitus, type II), controlled HTN (hypertension) Altered mental status Acute hypoxemic respiratory failure Pneumonia Multiple falls Generalized weakness At risk for aspiration Dysphagia Physical deconditioning Neurologic gait disorder Demyelinating disease of central nervous system Restrictive lung disease Postoperative atrial fibrillation Currently on amiodarone. Acute kidney injury Acute respiratory failure with hypoxia Left acute arterial ischemic stroke, MCA (middle cerebral artery) Shortness of breath tPA adm status 24 hr FOUR H AGENT July 2023 Orthostatic hypotension Tardive dyskinesia DNR (do not resuscitate) Hypercholesterolemia Chronic obstructive pulmonary disease, unspecified Labyrinthitis Backache Bipolar affective disorder Arthropathy, unspecified RLS (restless legs syndrome) Sleep apnea Peripheral vertigo Irritable bowel syndrome Aortic stenosis, severe Surgical History History of kyphoplasty L5 and S1 History of nasal surgery Status post aortic valve replacement with bioprosthetic valve History of abdominal hysterectomy H/O foot surgery H/O eye surgery H/O oral surgery Hx of cholecystectomy History of appendectomy Family History Other Hypertension Social History Smoking and tobacco/nicotine status: former use of tobacco/nicotine Quit status (tobacco/nicotine): has quit using Year quit tobacco: 1979 Former quit date comment: 4-5 cigarettes per day X 6 months Second hand smoke exposure: No Alcohol intake: never Substance/Drug Use: never Additional social history: Patient states she used CBD Gummies to lower her blood pressure. She lives alone with her Jaclyn. Her sister Pearl Hinton is her next of kin. 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 Patient wants DNR status as discussed today with Markos Lopez MD on 10/07/2024 Caregiver/support person: Yes Lives independently: Yes Household members: none Housing: House Marital status: / Current occupational status: retired and disabled Pets and animals: Yes Pets & animals: dog(s) Do you think of yourself as: Straight/Heterosexual Current gender identity: Female Physical Exam Const: GENERAL APPEARANCE: cooperative ORIENTATION/CONSCIOUSNESS: Yes awake, Yes oriented to person, Yes oriented to place and Yes oriented to time HENMT: COMMON NORMALS: normocephalic, atraumatic and hearing grossly normal bilaterally HEAD & SCALP: normocephalic and atraumatic Resp: COMMON NORMALS: normal respiratory effort, No retractions, No use of accessory muscles and clear to auscultation bilaterally AUSCULTATION: clear to auscultation bilaterally Cardio: COMMON NORMALS: regular rate, regular rhythm and No murmurs present (Cardio) RATE: regular rate RHYTHM: regular rhythm GI: COMMON NORMALS: Soft to palpation and No hepatosplenomegaly present AUSCULTATION: Yes normoactive bowel sounds PALPATION: Yes Soft to palpation, No Tenderness to palpation present (GI), No Guarding due to palpation present (GI) and Yes No hepatosplenomegaly present Extremity: COMMON NORMALS: normal to inspection, capillary refill normal, no clubbing, cyanosis or edema, no calf tenderness and no pedal edema Neuro: SENSORIUM/ORIENTATION: Yes oriented to person, Yes oriented to place and Yes oriented to time Skin: COMMON NORMALS: no rashes or lesions noted GENERAL SKIN EXAM: no rashes or lesions noted Course Vital Signs: Vital signs: Vital Signs Temperature 98.3 F 01/26/25 09:36 Pulse Rate 73 01/26/25 11:55 Respiratory Rate 16 01/26/25 09:36 Blood Pressure 122/74 01/26/25 11:55 Pulse Oximetry 94 01/26/25 11:55 Oxygen Delivery Me thod Room Air 01/26/25 09:36 MDM - Fall Medical Decision Making Patient seen and evaluated patient has no focal neurologic symptoms. She is complaining of some neck pain as well as sacral/coccygeal pain. Imaging ordered evaluate for fracture. Patient had ground-level mechanical fall history happens frequently. She denies striking her head no evidence of injury. Imaging unremarkable. Discharge patient home with Tylenol or Profen as needed Lab Data Radiology Impressions Cervical Spine X-Ray 01/26/25 09:53 IMPRESSION: No acute findings. Sacrum and Coccyx X-Ray 01/26/25 09:53 IMPRESSION: No acute fracture or dislocation. All radiology interpretation(s) finalized by discharge Discharge Plan Discharge Patient Disposition: Home Clinical Impression: Fall, Contusion of coccyx, Multiple falls, Neuroleptic-induced tardive dyskinesia Condition: Stable Prescriptions: No Action vitamins-lipotropics Tablet 1 tab PO DAILY Afrin (oxymetazoline) 0.05 % mist 2 spray intranasal Q12H PRN (Reason: Allergy Symptoms) cholecalciferol (vitamin D3) 50 mcg (2,000 unit) capsule 50 mcg PO DAILY ascorbic acid (vitamin C) 500 mg capsule 500 mg PO DAILY Neuriva Plus Brain Performance 1.7 mg-400 mcg- 2.4 mcg capsule 1 cap PO DAILY Austedo XR 24 mg tablet extended release 24 hr 24 mg PO DAILY Centrum Minis Women 50 Plus 4 mg iron-200 mcg-25 mcg tablet 1 tab PO DAILY nervive Nerve Relief Supplement 1 tab PO DAILY loratadine [Claritin] 10 mg tablet 10 mg PO DAILY Qty: 90 1RF gabapentin 100 mg capsule 100 mg PO TID Qty: 270 1RF (DME) Orthopedic shoes See Rx Instructions .ROUTE .MEDSUPPLY Qty: 1 0RF Rx Instructions: With 3 pairs of inserts losartan 25 mg tablet 25 mg PO DAILY Qty: 100 1RF amlodipine 10 mg tablet 10 mg PO QAM Qty: 100 1RF metoprolol succinate 50 mg tablet extended release 24 hr 50 mg PO QAM Qty: 90 1RF ropinirole 1 mg tablet 1 mg PO BID Qty: 60 5RF hydrocodone-acetaminophen 7.5-325 mg tablet 1 tab PO Q6H PRN (Reason: pain) 30 Days Qty: 120 0RF omeprazole 40 mg Capsule,Delayed Release(Dr/Ec) 40 mg PO QAM aspirin 81 mg Tablet,Delayed Release (Dr/Ec) 81 mg PO QAM Systane (PF) 0.4-0.3 % Dropperette 1 drp OPHTHALMIC (EYE) QID PRN (Reason: Dry Eyes) atorvastatin 80 mg Tablet 80 mg PO QPM cranberry 500 mg Capsule 500 mg PO TID Rx Instructions: administer with meals Discharge Orders: Discharge ED (Routine); Ordered 01/26/25 Ordered By: Geronimo Jose Referrals: Anupam Geiger DO [Primary Care Provider, Family Practice] Patient Instructions: Opioid Safety, Pain Management, Patient Portal & Viky Instructions Activity Restrictions/Additional Instructions: Thank you for choosing [facility] for your healthcare needs today. It is very important that you follow up as instructed or that you return to the Emergency Department should you have concerns or if your condition changes or worsens in any way. Emergency department visits are focused on emergent conditions, in some cases you may require further evaluation on an outpatient basis. You were seen in the emergency room after a fall your x-ray does not show any acute fractures. Will discharge you home have you follow-up with your primary care doctor as needed. (Please note that included in your discharge packet is information concerning opioid safety and pain management. This information is given to all patients were discharged from the ER regardless of their discharge diagnosis or the medicines they usually take or are prescribed.) Print Language: Macedonian Coding Level of Care Code ED Dye Machine Tender for 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
--- NOTE | 2025-01-26 10:44 | PC.NURSE ---
pt ambulated to bathroom down matos with tech. ambulated well with x1 assistance
[2025-01-26 11:55] VITALS: BP 122/74; PULSE 73; O2SAT 94
== END 2025-01-26 11:57 | disposition home or self-care (01) ==
PROVIDERS: Emergency Provider Family Medicine; PCP Family Medicine
DX: S30.0XXA Contusion of lower back and pelvis, initial encounter (principal); G24.01 Drug induced subacute dyskinesia; T43.505A Adverse effect of unspecified antipsychotics and neuroleptics, initial encounter; R29.6 Repeated falls; W19.XXXA Unspecified fall, initial encounter; Z79.82 Long term (current) use of aspirin; Z87.891 Personal history of nicotine dependence; E11.9 Type 2 diabetes mellitus without complications; I10 Essential (primary) hypertension; Z86.73 Personal history of transient ischemic attack (TIA), and cerebral infarction without residual deficits; J44.9 Chronic obstructive pulmonary disease, unspecified
CPT/HCPCS: 72040; 72220; 99284

== ENCOUNTER → 2025-02-09 13:38 | Outpatient (BNVA) | payer OTHER, MEDICAID, SELFPAY | PROVIDERS: Visit Provider Orthopaedic Surgery | DX: S32.010A Wedge compression fracture of first lumbar vertebra, initial encounter for closed fracture (principal); W19.XXXA Unspecified fall, initial encounter | CPT/HCPCS: 99213 ==

== ENCOUNTER → 2025-02-23 15:05 | Outpatient (BNVA) | payer OTHER, MEDICAID, SELFPAY | PROVIDERS: Visit Provider Orthopaedic Surgery | DX: M16.0 Bilateral primary osteoarthritis of hip (principal); M53.3 Sacrococcygeal disorders, not elsewhere classified | CPT/HCPCS: 72170; 99213 ==

== ENCOUNTER 2025-02-24 11:46 | Outpatient (RCR) | payer OTHER, MEDICAID, SELFPAY | END 2025-02-24 23:59 | disposition home or self-care (01) | LOC: GPT 11:46 | PROVIDERS: Visit Provider Family Medicine | DX: R29.6 Repeated falls (principal); M62.81 Muscle weakness (generalized); R26.81 Unsteadiness on feet | CPT/HCPCS: 97110; 97162; 97530 ==

== ENCOUNTER → 2025-03-14 08:14 | Outpatient (BNVA) | payer OTHER, MEDICAID, SELFPAY | PROVIDERS: Visit Provider Specialist | DX: G24.01 Drug induced subacute dyskinesia (principal); T43.505A Adverse effect of unspecified antipsychotics and neuroleptics, initial encounter; G24.3 Spasmodic torticollis; Z95.2 Presence of prosthetic heart valve; X58.XXXA Exposure to other specified factors, initial encounter | CPT/HCPCS: 99215 ==

== ENCOUNTER 2025-03-21 11:40 | Outpatient (RCR) | payer OTHER, MEDICAID, SELFPAY | END 2025-03-26 23:59 | disposition home or self-care (01) | LOC: GPT 11:40 | PROVIDERS: Visit Provider Family Medicine | DX: R29.6 Repeated falls (principal); R53.1 Weakness | CPT/HCPCS: 97110; 97140; 97530 ==

== ENCOUNTER → 2025-04-06 12:51 | Outpatient (BNVA) | payer MEDICARE, MEDICAID, SELFPAY | PROVIDERS: PCP Family Medicine; Visit Provider Orthopaedic Surgery | DX: Z01.818 Encounter for other preprocedural examination (principal); M51.362 Other intervertebral disc degeneration, lumbar region with discogenic back pain and lower extremity pain; M48.062 Spinal stenosis, lumbar region with neurogenic claudication | CPT/HCPCS: 36415; 80053; 85025; 99214 ==

== ENCOUNTER 2025-04-07 09:57 | Outpatient (RCR) | payer OTHER, MEDICAID, SELFPAY | END 2025-04-26 23:59 | disposition home or self-care (01) | LOC: GPT 09:57 | PROVIDERS: PCP Family Medicine; Visit Provider Family Medicine | DX: R29.6 Repeated falls (principal); R53.1 Weakness | CPT/HCPCS: 97110; 97140 ==

== ENCOUNTER 2025-04-17 16:30 | Emergency (ER) | payer MEDICARE, MEDICAID, SELFPAY ==
--- OUTSIDE RECORDS SUMMARY | 2025-04-17 16:36 | XMS_ITS | Encounter Summary ---
Author Organization [facility] Address [address] [place] [address] Care Team Providers Care Forestry Professor Name Role Phone Unavailable Primary Care Provider Unavailabl e Encounter Details Date Type Department Care Team (Late st Contact Info) Description 11/17/2019 Lab Requisition [facility] Laboratory Services [address] [place] [phone] Kathrine Toney, PURIFICATION OPERATOR NO ADDRESS ON FILE Social History Tobacco Use Types Packs/Day Years Used Date Smoking Tobacco: Never Assessed Comments Unknown Sex and Gender Information Value Date Recorded Sex Assigned at Not on file 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 Due to the current public health emergency, [facility] is receiving a high volume of samples [...] about COVID-19 can be found at the [facility] website: www.[employer] [place]/Covid19. Upper Respiratory ENTIRE NASOPHARYNX / Unknown Collection / Unknown 11/17/2019 6:11 PM CDT 11/17/2019 8:21 PM CDT Narrative [facility] - 11/19/2019 5:38 AM CDT Performing Organization Information: Site ID: [place] Name: [facility] Address: [address] [address] Director: Guerrero Bland D.O., MPH Kathrine FERNANDEZ MICROBIOLOGY - GENERAL CHARMAINE PAYAN Final Result [facility] [phone] documented in this encounter Visit Diagnoses Not on filedocumented in this encounter
--- OUTSIDE RECORDS SUMMARY | 2025-04-17 16:36 | XMS_ITS | Encounter Summary ---
Author Organization [facility] Address [address] [place] [address] Care Team Providers Care Veneer Stapler Name Role Phone Unavailable Primary Care Provider Unavailabl e Encounter Details Date Type Department Care Team (Late st Contact Info) Description 11/19/2019 Lab Requisition [facility] General Laboratory Services [address] [place] [phone] Kathrine Toney, BILLET WORKER NO ADDRESS ON FILE Social History Tobacco Use Types Packs/Day Years Used Date Smoking Tobacco: Never Assessed Comments Unknown Sex and Gender Information Value Date Recorded Sex Assigned at Not on file 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
--- OUTSIDE RECORDS SUMMARY | 2025-04-17 16:36 | XMS_ITS | Encounter Summary ---
Author Organization [employer] [facility] Address [address] [place] [address] Care Team Providers Care Re Recording Mixer Name Role Phone Unavailable Primary Care Provider Unavailabl e Encounter Details Date Type Department Care Team (Late st Contact Info) Description 11/11/2019 Lab Requisition [facility] Laboratory Services [address] 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 POTASSIUM 4.1 3.5 - 5.1 mmol/L 11/11/2019 6:36 AM CDT [facility] CHLORIDE 102 98 - 107 mmol/L 11/11/2019 6:36 AM CDT [facility] CO2 30(H) 22 - 29 mmol/L 11/11/2019 6:36 AM T [facility] CALCIUM 9.0 8.8 - 10.2 mg/dL 11/11/2019 6:36 AM CDT [facility] BUN 26(H) 8 - 23 mg/dL 11/11/2019 6:36 AM T [facility] CREATININE 0.97(H) 0.51 - 0.95 mg/dL 11/11/2019 6:36 AM T [facility] Comment:The GFR result is no t clinically significant on patients <18 or >70 years of age. GLUCOSE 157(H) 74 - 99 mg/dL 11/11/2019 6:36 AM T [facility] GFR 56 mL/min/1. 73 sq meter 11/11/2019 6:36 AM T [facility] Comment: eGFR has not been validated for [...] 73 sq meter 11/11/2019 6:36 AM CDT [facility] ANION GAP 8(L) 9 - 20 mmol/L 11/11/2019 6:36 AM T [facility] Blood Collection / Unknown 11/11/2019 5:02 AM CDT 11/11/2019 5:50 AM CDT us Cristiane Minor NP CHEMISTRY ORDERABLES Final Resu lt [facility] [address] [place] [address] * (ABNORMAL) CBC WITH DIFFERENTIAL (11/11/2019 5:02 AM CDT) [facility] WBC 8.3 4.8 - 10.8 K/uL 11/11/2019 6:12 AM T [facility] RBC 2.88(L) 4.20 - 5.40 M/uL 11/11/2019 6:12 AM [facility] HEMOGLOBIN 8.6(L) 12.0 - 16.0 g/dL 11/11/2019 6:12 AM T [facility] HEMATOCRIT 27.3(L) 36.0 - 46.0 % 11/11/2019 6:12 AM [facility] MCV 94.8 84.0 - 103.0 fL 11/11/2019 6:12 AM [facility] MCH 29.9 27.0 - 34.0 pg 11/11/2019 6:12 AM [facility] MCHC 31.5 30.0 - 35.0 g/dL 11/11/2019 6:12 AM [facility] RDW 14.4 11.0 - 14.5 % 11/11/2019 6:12 AM [facility] RDW-STDEV 49.5 37.0 - 54.0 fL 11/11/2019 6:12 AM [facility] PLATELETS 171 140 - 440 K/uL 11/11/2019 6:12 AM [facility] MPV 10.9 8.9 - 12.8 fL 11/11/2019 6:12 AM [facility] NEUTROPHILS 60 42 - 75 % 11/11/2019 6:12 AM [facility] LYMPHOCYTES 17(L) 24 - 44 % 11/11/2019 6:12 AM T [facility] MONOCYTES 15(H) 2 - 10 % 11/11/2019 6:12 AM [facility] EOSINOPHILS 7 0 - 7 % 11/11/2019 6:12 AM [facility] BASOPHILS 1 0 - 1 % 11/11/2019 6:12 AM T [facility] IMMATURE GRANULOCYTES 1 0 - 2 % 11/11/2019 6:12 AM CDT [facility] NEUTROPHIL ABSOLUTE 5.04 2.00 - 8.00 K/uL 11/11/2019 6:12 AM CDT [facility] LYMPHOCYTE ABSOLUTE 1.43 1.20 - 4.00 K/uL 11/11/2019 6:12 AM CDT [facility] MONOCYTE ABSOLUTE 1.23(H) 0.10 - 0.60 K/uL 11/11/2019 6:12 AM CDT [facility] EOSINOPHIL ABSOLUTE 0.54 0.00 - 0.70 K/uL 11/11/2019 6:12 AM CDT [facility] BASOPHILS ABSOLUTE 0.05 0.00 - 0.20 K/uL 11/11/2019 6:12 AM CDT [facility] IMMATURE GRANULOCYTES ABSOLUTE 0.04 0.00 - 0.10 K/uL 11/11/2019 6:12 AM CDT [facility] Blood Collection / Unknown 11/11/2019 5:02 AM CDT 11/11/2019 5:50 AM CDT us Cristiane Minor NP HEMATOLOGY ORDERABLES Final Res ult [facility] [address] [place] [address] documented in this encounter Visit Diagnoses Not on filedocumented in this encounter
--- OUTSIDE RECORDS SUMMARY | 2025-04-17 16:36 | XMS_ITS | Encounter Summary ---
Author Organization [employer] [facility] Address [address] [place] [address] Care Team Providers Care Machine Assistant Name Role Phone Unavailable Primary Care Provider Unavailabl e Encounter Details Date Type Department Care Team (Late st Contact Info) Description 11/07/2019 Lab Requisition [facility] Laboratory Services [address] [place] [phone] [place] [address] [place] [address] Social History Tobacco Use Types Packs/Day Years Used Date Smoking Tobacco: Never Assessed Comments Unknown Sex and Gender Information Value Date Recorded Sex Assigned at Not on file 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 Result may be falsely elevated. CHLORIDE 101 98 - 107 mmol/L 11/07/2019 7:25 AM T [facility] CO2 29 22 - 29 mmol/L 11/07/2019 7:25 AM T [facility] CALCIUM 8.7(L) 8.8 - 10.2 mg/dL 11/07/2019 7:25 AM CDT [facility] BUN 25(H) 8 - 23 mg/dL 11/07/2019 7:25 AM T [facility] CREATININE 0.88 0.51 - 0.95 mg/dL 11/07/2019 7:25 AM T [facility] Comment:The GFR result is no t clinically significant on patients <18 or >70 years of age. GLUCOSE 107(H) 74 - 99 mg/dL 11/07/2019 7:25 AM CDT [facility] TOTAL PROTEIN 6.9 6.4 - 8.3 g/dL 11/07/2019 7:25 AM CDT [facility] ALBUMIN 3.2(L) 3.5 - 5.2 g/dL 11/07/2019 7:25 AM CDT [facility] BILIRUBIN TOTAL 0.4 0.2 - 1.0 mg/dL 11/07/2019 7:25 AM CDT [facility] ALKALINE PHOSPHATASE 111(H) 35 - 104 U/L 11/07/2019 7:25 AM T [facility] AST 37(H) 10 - 35 U/L 11/07/2019 7:25 AM CDT [facility] Comment:Hemolysis present. R esult may be falsely elevated. ALT 18 <=35 U/L 11/07/2019 7:25 AM T [facility] Comment:Hemolysis present. R esult may be falsely elevated. GFR >60 mL/min/1.7 3 sq meter 11/07/2019 7:25 AM T [facility] Comment: eGFR has not been validated for [...] 3 sq meter 11/07/2019 7:25 AM T [facility] ANION GAP 9 9 - 20 mmol/L 11/07/2019 7:25 AM [facility] Blood Collection / Unknown 11/07/2019 3:20 AM CDT 11/07/2019 7:10 AM CDT us Elio Luevano MD CHEMISTRY ORDERABLES Final Resu lt [facility] [address] [place] [address] * (ABNORMAL) CBC WITHOUT DIFFERENTIAL (11/07/2019 3:20 AM CDT) WBC 10.2 4.8 - 10.8 K/uL 11/07/2019 7:13 AM T [facility] RBC 3.13(L) 4.20 - 5.40 M/uL 11/07/2019 7:13 AM CDT [facility] HEMOGLOBIN 9.6(L) 12.0 - 16.0 g/dL 11/07/2019 7:13 AM CDT [facility] HEMATOCRIT 30.0(L) 36.0 - 46.0 % 11/07/2019 7:13 AM CDT [facility] MCV 95.8 84.0 - 103.0 fL 11/07/2019 7:13 AM CDT [facility] MCH 30.7 27.0 - 34.0 pg 11/07/2019 7:13 AM CDT [facility] MCHC 32.0 30.0 - 35.0 g/dL 11/07/2019 7:13 AM CDT [facility] PLATELETS 220 140 - 440 K/uL 11/07/2019 7:13 AM T [facility] MPV 10.5 8.9 - 12.8 fL 11/07/2019 7:13 AM [facility] RDW 14.6(H) 11.0 - 14.5 % 11/07/2019 7:13 AM [facility] RDW-STDEV 49.7 37.0 - 54.0 fL 11/07/2019 7:13 AM [facility] Blood Collection / Unknown 11/07/2019 3:20 AM CDT 11/07/2019 7:10 AM CDT us Elio Luevano MD HEMATOLOGY ORDERABLES Final Res ult [facility] [address] [place] [address] documented in this encounter Visit Diagnoses Not on filedocumented in this encounter
--- OUTSIDE RECORDS SUMMARY | 2025-04-17 16:36 | XMS_ITS | Encounter Summary ---
Author Organization [facility] Address [address] [place] [address] Care Team Providers Care Supervising Nurse Name Role Phone Unavailable Primary Care Provider Unavailabl e Encounter Details Date Type Department Care Team (Late st Contact Info) Description 11/19/2019 Lab Requisition [facility] General Laboratory Services [address] [place] [phone] [place] [address] [place] [address] Social History Tobacco Use Types Packs/Day Years Used Date Smoking Tobacco: Never Assessed Comments Unknown Sex and Gender Information Value Date Recorded Sex Assigned at Not on file 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
--- OUTSIDE RECORDS SUMMARY | 2025-04-17 16:36 | XMS_ITS | Encounter Summary ---
Author Organization [employer] [facility] Address [address] [place] [address] Care Team Providers Care Lead Rider Name Role Phone Unavailable Primary Care Provider Unavailabl e Encounter Details Date Type Department Care Team (Late st Contact Info) Description 11/07/2019 Lab Requisition [facility] [address] [place] [phone] Carlos Tripp DO [address] [place] [address] Social History Tobacco Use Types Packs/Day Years Used Date Smoking Tobacco: Never Assessed Comments Unknown Sex and Gender Information Value Date Recorded Sex Assigned at Not on file 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 Gender Identity Not on file Sexual Orientation Not on file documented as of this encounter Plan of Treatment Not on file documented as of this encounter Procedures Procedure Name Priority Date/Time Associated Diagnosis Comments BLOOD CULTURE Stat 11/07/2019 9:30 PM CDT documented in this encounter Results * BLOOD CULTURE (11/07/2019 9:30 PM CDT) BLOOD CULTURE No growth 11/13/2019 5:39 AM CDT [facility] [employer] [facility] Blood (Peripheral) Collection / Unknown 11/07/2019 9:30 PM CDT 11/07/2019 11:19 PM CDT Carlos Tripp DO MICROBIOLOGY - GENERAL ORD ERABLES Final Result [facility] [employer] [facility] [address] [place] [address] documented in this encounter Visit Diagnoses Not on filedocumented in this encounter
--- OUTSIDE RECORDS SUMMARY | 2025-04-17 16:36 | XMS_ITS | Encounter Summary ---
Author Organization [facility] Address [address] [place] [address] Care Team Providers Care Media Coordinator Name Role Phone Unavailable Primary Care Provider Unavailabl e Encounter Details Date Type Department Care Team (Late st Contact Info) Description 11/10/2019 Lab Requisition [facility] Laboratory [facility] [address] [place] [address] Cristiane Minor NP [address] [place] [address] Social History Tobacco Use Types Packs/Day Years Used Date Smoking Tobacco: Never Assessed Comments Unknown Sex and Gender Information Value Date Recorded Sex Assigned at Not on file 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 Gender Identity Not on file Sexual Orientation Not on file documented as of this encounter Plan of Treatment Not on file documented as of this encounter Procedures Procedure Name Priority Date/Time Associated Diagnosis Comments BLOOD CULTURE Stat 11/10/2019 11:55 AM CDT documented in this encounter Results * BLOOD CULTURE (11/10/2019 11:55 AM CDT) BLOOD CULTURE No growth 11/15/2019 12:49 PM CDT [facility] [employer] [facility] Blood (Peripheral) Collection / Unknown 11/10/2019 11:55 AM CDT 11/10/2019 12:18 PM CDT us Cristiane Minor NP MICROBIOLOGY - GENERAL ORDERABL ES Final Result [facility] [employer] [facility] [address] [place] [address] documented in this encounter Visit Diagnoses Not on filedocumented in this encounter
--- OUTSIDE RECORDS SUMMARY | 2025-04-17 16:36 | XMS_ITS | Encounter Summary ---
Author Organization [facility] Address [address] [place] [address] Care Team Providers Care Strategic Marketing Specialist Name Role Phone Unavailable Primary Care Provider Unavailabl e Encounter Details Date Type Department Care Team (Late st Contact Info) Description 11/19/2019 Lab Requisition [facility] Laboratory Services [address] [place] [phone] [place] [address] [place] [address] Social History Tobacco Use Types Packs/Day Years Used Date Smoking Tobacco: Never Assessed Comments Unknown Sex and Gender Information Value Date Recorded Sex Assigned at Not on file 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 Gender Identity Not on file Sexual [...] - 10.8 K/uL 11/19/2019 10:21 AM CDT [facility] RBC 2.94(L) 4.20 - 5.40 M/uL 11/19/2019 10:21 AM CDT [facility] HEMOGLOBIN 8.9(L) 12.0 - 16.0 g/dL 11/19/2019 10:21 AM CDT [facility] HEMATOCRIT 28.2(L) 36.0 - 46.0 % 11/19/2019 10:21 AM [facility] [employer] [facility] MCV 95.9 84.0 - 103.0 fL 11/19/2019 10:21 AM [facility] [employer] [facility] MCH 30.3 27.0 - 34.0 pg 11/19/2019 10:21 AM [facility] [employer] [facility] MCHC 31.6 30.0 - 35.0 g/dL 11/19/2019 10:21 AM [facility] [employer] [facility] RDW 15.9(H) 11.0 - 14.5 % 11/19/2019 10:21 AM [facility] [employer] [facility] RDW-STDEV 53.5 37.0 - 54.0 fL 11/19/2019 10:21 AM [facility] [employer] [facility] PLATELETS 138(L) 140 - 440 K/uL 11/19/2019 10:21 AM [facility] [employer] [facility] MPV 10.7 8.9 - 12.8 fL 11/19/2019 10:21 AM [facility] [employer] [facility] NEUTROPHILS 61 42 - 75 % 11/19/2019 10:21 AM [facility] [employer] [facility] LYMPHOCYTES 23(L) 24 - 44 % 11/19/2019 10:21 AM [facility] [employer] [facility] MONOCYTES 10 2 - 10 % 11/19/2019 10:21 AM [facility] [employer] [facility] EOSINOPHILS 4 0 - 7 % 11/19/2019 10:21 AM [facility] [employer] [facility] BASOPHILS 1 0 - 1 % 11/19/2019 10:21 AM [facility] [employer] [facility] IMMATURE GRANULOCYTES 1 0 - 2 % 11/19/2019 10:21 AM [facility] [employer] [facility] NEUTROPHIL ABSOLUTE 5.62 2.00 - 8.00 K/uL 11/19/2019 10:21 AM [facility] [employer] [facility] LYMPHOCYTE ABSOLUTE 2.16 1.20 - 4.00 K/uL 11/19/2019 10:21 AM [facility] [employer] [facility] MONOCYTE ABSOLUTE 0.95(H) 0.10 - 0.60 K/uL 11/19/2019 10:21 AM [facility] [employer] [facility] EOSINOPHIL ABSOLUTE 0.37 0.00 - 0.70 K/uL 11/19/2019 10:21 AM CDT [facility] BASOPHILS ABSOLUTE 0.07 0.00 - 0.20 K/uL 11/19/2019 10:21 AM CDT [facility] IMMATURE GRANULOCYTES ABSOLUTE 0.06 0.00 - 0.10 K/uL 11/19/2019 10:21 AM CDT [facility] Blood Collection / Unknown 11/19/2019 9:00 AM CDT 11/19/2019 9:24 AM CDT Narrative [facility] - 11/19/2019 10:21 AM CDT Fibrin on slide - platelet count may be higher than reported us Elio Luevano MD HEMATOLOGY ORDERABLES Final Res ult [facility] [address] [place] [address] documented in this encounter Visit Diagnoses Not on filedocumented in this encounter
--- OUTSIDE RECORDS SUMMARY | 2025-04-17 16:36 | XMS_ITS | Encounter Summary ---
Author Organization [employer] [facility] Address [address] [place] [address] Care Team Providers Care Hull Grinder Name Role Phone Unavailable Primary Care Provider Unavailabl e Encounter Details Date Type Department Care Team (Late st Contact Info) Description 11/17/2019 Lab Requisition [facility] Laboratory Services [address] [place] [place] [phone] [place] [address] [place] [address] Social History Tobacco Use Types Packs/Day Years Used Date Smoking Tobacco: Never Assessed Comments Unknown Sex and Gender Information Value Date Recorded Sex Assigned at Not on file 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 Gender Identity Not on file Sexual Orientation [...] - 2.4 mg/dL 11/17/2019 6:37 AM CDT [facility] [employer] [facility] Blood Collection / Unknown 11/17/2019 4:53 AM CDT 11/17/2019 6:03 AM CDT us Elio Luevano MD CHEMISTRY ORDERABLES Final Resu lt [facility] [address] [place] [address] * (ABNORMAL) COMPREHENSIVE METABOLIC PANEL (11/17/2019 4:53 AM CDT) SODIUM 140 136 - 145 mmol/L 11/17/2019 6:37 AM CDT [facility] POTASSIUM 4.0 3.5 - 5.1 mmol/L 11/17/2019 6:37 AM CDT [facility] CHLORIDE 104 98 - 107 mmol/L 11/17/2019 6:37 AM CDT [facility] CO2 23 22 - 29 mmol/L 11/17/2019 6:37 AM CDT [facility] CALCIUM 8.8 8.8 - 10.2 mg/dL 11/17/2019 6:37 AM T [facility] [employer] [facility] BUN 22 8 - 23 mg/dL 11/17/2019 6:37 AM T [facility] CREATININE 1.06(H) 0.51 - 0.95 mg/dL 11/17/2019 6:37 AM T [facility] Comment:The GFR result is no t clinically significant on patients <18 or >70 years of age. GLUCOSE 114(H) 74 - 99 mg/dL 11/17/2019 6:37 AM CDT [facility] TOTAL PROTEIN 7.0 6.4 - 8.3 g/dL 11/17/2019 6:37 AM T [facility] ALBUMIN 3.4(L) 3.5 - 5.2 g/dL 11/17/2019 6:37 AM CDT [facility] [employer] [facility] BILIRUBIN TOTAL 0.4 0.2 - 1.0 mg/dL 11/17/2019 6:37 AM CDT [facility] ALKALINE PHOSPHATASE 136(H) 35 - 104 U/L 11/17/2019 6:37 AM T [facility] [employer] [facility] AST 33 10 - 35 U/L 11/17/2019 6:37 AM CDT [facility] ALT 26 <=35 U/L 11/17/2019 6:37 AM CDT [facility] GFR 51 mL/min/1. 73 sq meter 11/17/2019 6:37 AM CDT [facility] Comment: eGFR has not been validated for [...] 73 sq meter 11/17/2019 6:37 AM CDT [facility] ANION GAP 13 9 - 20 mmol/L 11/17/2019 6:37 AM T [facility] Blood Collection / Unknown 11/17/2019 4:53 AM CDT 11/17/2019 6:03 AM CDT us Elio Luevano MD CHEMISTRY ORDERABLES Final Resu lt [facility] [address] [place] [address] * (ABNORMAL) CBC WITHOUT DIFFERENTIAL (11/17/2019 4:53 AM CDT) WBC 11.5(H) 4.8 - 10.8 K/uL 11/17/2019 6:34 AM CDT [facility] RBC 2.97(L) 4.20 - 5.40 M/uL 11/17/2019 6:34 AM CDT [facility] HEMOGLOBIN 9.1(L) 12.0 - 16.0 g/dL 11/17/2019 6:34 AM CDT [facility] HEMATOCRIT 28.8(L) 36.0 - 46.0 % 11/17/2019 6:34 AM CDT [facility] MCV 97.0 84.0 - 103.0 fL 11/17/2019 6:34 AM CDT [facility] MCH 30.6 27.0 - 34.0 pg 11/17/2019 6:34 AM CDT [facility] MCHC 31.6 30.0 - 35.0 g/dL 11/17/2019 6:34 AM CDT [facility] PLATELETS 191 140 - 440 K/uL 11/17/2019 6:34 AM CDT [facility] MPV 10.7 8.9 - 12.8 fL 11/17/2019 6:34 AM CDT [facility] RDW 15.7(H) 11.0 - 14.5 % 11/17/2019 6:34 AM CDT [facility] RDW-STDEV 53.2 37.0 - 54.0 fL 11/17/2019 6:34 AM T [facility] Blood Collection / Unknown 11/17/2019 4:53 AM CDT 11/17/2019 6:03 AM CDT us Elio Luevano MD HEMATOLOGY ORDERABLES Final Res ult [facility] [address] [place] [address] documented in this encounter Visit Diagnoses Not on filedocumented in this encounter
--- OUTSIDE RECORDS SUMMARY | 2025-04-17 16:36 | XMS_ITS | Encounter Summary ---
Author Organization [facility] Address [address] [place] [address] Care Team Providers Care Pattern Storage Clerk Name Role Phone Unavailable Primary Care Provider Unavailabl e Encounter Details Date Type Department Care Team (Late st Contact Info) Description 11/10/2019 Lab Requisition [facility] Laboratory Services [address] 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 Gender Identity Not on file Sexual Orientation [...] to dark yellow 11/10/2019 12:51 PM CDT [facility] [employer] [facility] CLARITY UA Cloudy(A) Clear 11/10/2019 12:51 PM [facility] SPECIFIC GRAVITY UA 1.016 1.003 - 1.035 11/10/2019 12:51 PM [facility] PH UA 5.0 5.0 - 8.0 11/10/2019 12:51 PM [facility] LEUKOCYTE ESTERASE UA Negative Negative 11/10/2019 12:51 PM [facility] NITRITE UA Negative Negative 11/10/2019 12:51 PM [facility] PROTEIN UA Negative Negative 11/10/2019 12:51 PM [facility] GLUCOSE UA Negative Negative 11/10/2019 12:51 PM [facility] KETONES UA Negative Negative 11/10/2019 12:51 PM [facility] UROBILINOGEN UA <2.0 <2.0 mg/dL 0 12:51 PM [facility] BILIRUBIN UA Negative Negative 11/10/2019 12:51 PM [facility] BLOOD UA Negative Negative 11/10/2019 12:51 PM [facility] Comment:Ascorbic acid may ca use false negative results for blood. A microscopic review was reflexed to rule out this interference. WBC UA 0-2 0 - 2 /hpf 11/10/2019 12:51 PM [facility] RBC UA 0-2 0 - 2 /hpf 11/10/2019 12:51 PM [facility] BACTERIA UA Negative Negative /hpf 11/10/2019 12:51 PM [facility] HYALINE CAST 0-2 None Seen, 0-2 /lpf 11/10/2019 12:51 PM [facility] AMORPHOUS CRYSTAL Present(A) Absent 11/10/2019 12:51 PM [facility] COMMENT, URINE Mucous: Few 0 12:51 PM [facility] Ascorbic Acid UA Positive(A) Negative 11/10/2019 12:51 PM [facility] Urine URINE SPECIMEN / Unknown Collection / Unknown 11/10/2019 4:55 PM CDT 11/10/2019 12:16 PM CDT Cristiane Minor NP URINE ORDERABLES Final Result Performing Organization Address [facility] Co de Phone Number [address] [address] * LACTIC ACID (11/10/2019 12:00 PM CDT) LACTIC ACID 0.7 <=2.0 mmol/L 11/10/2019 12:43 PM CDT [facility] Blood Collection / Unknown 11/10/2019 12:00 PM CDT 11/10/2019 12:14 PM CDT Cristiane Minor NP CHEMISTRY ORDERABLES Final Resu lt Performing Organization Address [facility] Co de Phone Number [address] [address] * (ABNORMAL) PROCALCITONIN (11/10/2019 11:55 AM CDT) PROCALCITONIN 0.80(H) <=0.08 ng/mL 11/10/2019 1:01 PM CDT [facility] Blood Collection / Unknown 11/10/2019 11:55 AM CDT 11/10/2019 12:31 PM CDT Narrative [facility] LABORATORY [facility] - 11/10/2019 1:01 PM CDT The [...] ORDERABLES Final Resu lt Performing Organization Address [facility] Co de Phone Number [facility] [employer] [facility] [address] [place] [address] * BLOOD CULTURE (11/10/2019 11:34 AM CDT) BLOOD CULTURE No growth 11/15/2019 12:49 PM CDT [facility] [employer] [facility] Blood (Peripheral) 11/10/2019 11:34 AM CDT 11/10/2019 12:18 PM CDT us Cristiane Minor NP MICROBIOLOGY - GENERAL ORDERABL ES Final Result Performing Organization Address [facility] Co de Phone Number [facility] [address] [place] [address] documented in this encounter Visit Diagnoses Not on filedocumented in this encounter
--- OUTSIDE RECORDS SUMMARY | 2025-04-17 16:36 | XMS_ITS | Encounter Summary ---
Author Organization [facility] Address [address] [place] [address] Care Team Providers Care Honing Machine Operator Name Role Phone Unavailable Primary Care Provider Unavailabl e Encounter Details Date Type Department Care Team (Latest Contact Info) Description 06/22/1998 Outpatient Historical [facility] Family Medicine [address] [phone] Pavel Montoya MD NO ADDRESS ON FILE Acute pharyngitis (Primary Dx); Esophagitis, unspecified Social History Tobacco Use Types Packs/Day Years Used Date Smoking Tobacco: Never Assessed Comments Unknown Sex and Gender Information Value Date Recorded Sex Assigned at Not on file Legal Sex Female 3:[address] CONDUCTOR Gender Identity Not on file Sexual Orientation Not on file documented as of this encounter Plan of Treatment Not on file documented as of this encounter Visit Diagnoses Diagnosis Acute pharyngitis- Primary Esophagitis, unspecified documented in this encounter
--- OUTSIDE RECORDS SUMMARY | 2025-04-17 16:36 | XMS_ITS | Encounter Summary ---
Author Organization [facility] Address [address] [place] [address] Care Team Providers Care Sales Agent Casualty Insurance Name Role Phone Unavailable Primary Care Provider Unavailabl e Encounter Details Date Type Department Care Team (Latest Contact Info) Description 03/07/1998 Outpatient Historical [facility] [address] [place] [address] Mehnaz Mays MD [address] [place], [place] [address] Goiter, unspecified (Primary Dx) Social History Tobacco Use Types Packs/Day Years Used Date Smoking Tobacco: Never Assessed Comments Unknown Sex and Gender Information Value Date Recorded Sex Assigned at Not on file 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
--- OUTSIDE RECORDS SUMMARY | 2025-04-17 16:36 | XMS_ITS | Encounter Summary ---
Author Organization [employer] [facility] Address [address] [place] [address] Care Team Providers Care Administrative Director Name Role Phone Unavailable Primary Care Provider Unavailabl e Encounter Details Date Type Department Care Team (Late st Contact Info) Description 11/10/2019 Lab Requisition [facility] Laboratory Services [address] [place] [phone] [place] [address] [place] [address] Social History Tobacco Use Types Packs/Day Years Used Date Smoking Tobacco: Never Assessed Comments Unknown Sex and Gender Information Value Date Recorded Sex Assigned at Not on file Legal 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 Gender Identity Not on file Sexual Orientation [...] - 2.4 mg/dL 11/10/2019 6:56 AM CDT [facility] [employer] [facility] Blood Collection / Unknown 11/10/2019 4:04 AM CDT 11/10/2019 6:23 AM CDT us Elio Luevano MD CHEMISTRY ORDERABLES Final Resu lt [facility] [address] [place] [address] * (ABNORMAL) COMPREHENSIVE METABOLIC PANEL (11/10/2019 4:04 AM CDT) SODIUM 138 136 - 145 mmol/L 11/10/2019 6:56 AM CDT [facility] POTASSIUM 3.8 3.5 - 5.1 mmol/L 11/10/2019 6:56 AM CDT [facility] CHLORIDE 100 98 - 107 mmol/L 11/10/2019 6:56 AM CDT [facility] CO2 26 22 - 29 mmol/L 11/10/2019 6:56 AM CDT [facility] CALCIUM 9.1 8.8 - 10.2 mg/dL 11/10/2019 6:56 AM T [facility] BUN 28(H) 8 - 23 mg/dL 11/10/2019 6:56 AM T [facility] CREATININE 0.89 0.51 - 0.95 mg/dL 11/10/2019 6:56 AM T [facility] Comment:The GFR result is no t clinically significant on patients <18 or >70 years of age. GLUCOSE 146(H) 74 - 99 mg/dL 11/10/2019 6:56 AM T [facility] TOTAL PROTEIN 6.8 6.4 - 8.3 g/dL 11/10/2019 6:56 AM T [facility] ALBUMIN 3.2(L) 3.5 - 5.2 g/dL 11/10/2019 6:56 AM CDT [facility] BILIRUBIN TOTAL 0.4 0.2 - 1.0 mg/dL 11/10/2019 6:56 AM CDT [facility] ALKALINE PHOSPHATASE 148(H) 35 - 104 U/L 11/10/2019 6:56 AM T [facility] [employer] [facility] AST 29 10 - 35 U/L 11/10/2019 6:56 AM CDT [facility] ALT 17 <=35 U/L 11/10/2019 6:56 AM CDT [facility] GFR >60 mL/min/1.7 3 sq meter 11/10/2019 6:56 AM CDT [facility] Comment: eGFR has not been validated [...] 3 sq meter 11/10/2019 6:56 AM CDT [facility] ANION GAP 12 9 - 20 mmol/L 11/10/2019 6:56 AM T [facility] Blood Collection / Unknown 11/10/2019 4:04 AM CDT 11/10/2019 6:23 AM CDT us Elio Luevano MD CHEMISTRY ORDERABLES Final Resu lt Performing Organization Address City/State/[facility] Co de Phone Number [facility] [address] [place] [address] * (ABNORMAL) CBC WITHOUT DIFFERENTIAL (11/10/2019 4:04 AM CDT) WBC 15.3(H) 4.8 - 10.8 K/uL 11/10/2019 6:32 AM CDT [facility] RBC 3.15(L) 4.20 - 5.40 M/uL 11/10/2019 6:32 AM CDT [facility] HEMOGLOBIN 9.2(L) 12.0 - 16.0 g/dL 11/10/2019 6:32 AM CDT [facility] HEMATOCRIT 29.1(L) 36.0 - 46.0 % 11/10/2019 6:32 AM CDT [facility] MCV 92.4 84.0 - 103.0 fL 11/10/2019 6:32 AM CDT [facility] MCH 29.2 27.0 - 34.0 pg 11/10/2019 6:32 AM CDT [facility] MCHC 31.6 30.0 - 35.0 g/dL 11/10/2019 6:32 AM CDT [facility] PLATELETS 191 140 - 440 K/uL 11/10/2019 6:32 AM CDT [facility] MPV 10.7 8.9 - 12.8 fL 11/10/2019 6:32 AM CDT [facility] RDW 14.4 11.0 - 14.5 % 11/10/2019 6:32 AM CDT [facility] RDW-STDEV 47.8 37.0 - 54.0 fL 11/10/2019 6:32 AM T [facility] Blood Collection / Unknown 11/10/2019 4:04 AM CDT 11/10/2019 6:23 AM CDT us Elio Luevano MD HEMATOLOGY ORDERABLES Final Res ult [facility] [address] [place] [address] documented in this encounter Visit Diagnoses Not on filedocumented in this encounter
--- OUTSIDE RECORDS SUMMARY | 2025-04-17 16:36 | XMS_ITS | Clinical Summary ---
Author Organization [facility] Address [address] 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
--- OUTSIDE RECORDS SUMMARY | 2025-04-17 16:36 | XMS_ITS | Encounter Summary ---
Author Organization [employer] [facility] [place] Address [address] [place] [address] Care Team Providers Care Document Management Analyst Name Role Phone Unavailable Primary Care Provider Unavailabl e Encounter Details Date Type Department Care Team (Late st Contact Info) Description 11/07/2019 Lab Requisition 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 Gender Identity Not on file Sexual Orientation Not on file documented as of this encounter Plan of Treatment Not on file documented as of this encounter Procedures Procedure Name Priority Date/Time Associated Diagnosis Comments BLOOD CULTURE Stat 11/07/2019 9:30 PM CDT documented in this encounter Results * BLOOD CULTURE (11/07/2019 9:30 PM CDT) BLOOD CULTURE No growth 11/13/2019 5:39 AM CDT [facility] [employer] [facility] Blood (Peripheral) Collection / Unknown 11/07/2019 9:30 PM CDT 11/07/2019 11:19 PM CDT Carlos Tripp DO MICROBIOLOGY - GENERAL ORD ERABLES Final Result [facility] [employer] [facility] [address] [place] [address] documented in this encounter Visit Diagnoses Not on filedocumented in this encounter
--- OUTSIDE RECORDS SUMMARY | 2025-04-17 16:36 | XMS_ITS | Encounter Summary ---
Author Organization [employer] [facility] Address [address] [place] [address] Care Team Providers Care Novelty Dipper Name Role Phone Unavailable Primary Care Provider Unavailabl e Encounter Details Date Type Department Care Team (Late st Contact Info) Description 11/11/2019 Lab Requisition [facility] Laboratory Services [address] [place] [address] [place] [address] Cristiane Minor NP [address] [place] [address] Social History Tobacco Use Types Packs/Day Years Used Date Smoking Tobacco: Never Assessed Comments Unknown Sex and Gender Information Value Date Recorded Sex Assigned at Not on file Legal Sex Female 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 Gender Identity Not on file Sexual [...] Detected Not Detected 11/11/2019 7:02 AM CDT [facility] [employer] [facility] Stool STOOL SPECIMEN / Unknown Collection / Unknown 11/11/2019 2:00 AM CDT 11/11/2019 5:52 AM CDT Narrative [facility] - 11/11/2019 7:02 AM CDT This assay [...] ORDERABL ES Final Result Performing Organization Address [facility]/State/ZIP Co de Phone Number [facility] LABORATORY SERVICES [place] [address] [place] [address] documented in this encounter Visit Diagnoses Not on filedocumented in this encounter
--- OUTSIDE RECORDS SUMMARY | 2025-04-17 16:36 | XMS_ITS | Encounter Summary ---
Author Organization [employer] [facility] Address [address] [place] [address] Care Team Providers Care Veterinary Microbiologist Name Role Phone Unavailable Primary Care Provider Unavailabl e Encounter Details Date Type Department Care Team (Late st Contact Info) Description 11/14/2019 Lab Requisition [facility] Laboratory Services [address] [place] [address] [place] [phone] [place] [address] [place] [address] Social History Tobacco Use Types Packs/Day Years Used Date Smoking Tobacco: Never Assessed Comments Unknown Sex and Gender Information Value Date Recorded Sex Assigned at Not on file Legal Sex Female 3:20 AM STONE UNLOADER Gender Identity Not on file Sexual Orientation [...] - 2.4 mg/dL 11/14/2019 6:46 AM CDT [facility] [employer] [facility] Blood Collection / Unknown 11/14/2019 4:40 AM CDT 11/14/2019 5:56 AM CDT us Elio Luevano MD CHEMISTRY ORDERABLES Final Resu lt [facility] [address] [place] [address] * (ABNORMAL) COMPREHENSIVE METABOLIC PANEL (11/14/2019 4:40 AM CDT) SODIUM 138 136 - 145 mmol/L 11/14/2019 6:46 AM CDT [facility] POTASSIUM 3.6 3.5 - 5.1 mmol/L 11/14/2019 6:46 AM CDT [facility] CHLORIDE 99 98 - 107 mmol/L 11/14/2019 6:46 AM CDT [facility] CO2 29 22 - 29 mmol/L 11/14/2019 6:46 AM CDT [facility] CALCIUM 8.8 8.8 - 10.2 mg/dL 11/14/2019 6:46 AM CDT [facility] BUN 23 8 - 23 mg/dL 11/14/2019 6:46 AM CDT [facility] CREATININE 1.10(H) 0.51 - 0.95 mg/dL 11/14/2019 6:46 AM CDT [facility] Comment:The GFR result is no t clinically significant on patients <18 or >70 years of age. GLUCOSE 150(H) 74 - 99 mg/dL 11/14/2019 6:46 AM CDT [facility] TOTAL PROTEIN 6.3(L) 6.4 - 8.3 g/dL 11/14/2019 6:46 AM CDT [facility] ALBUMIN 3.1(L) 3.5 - 5.2 g/dL 11/14/2019 6:46 AM CDT [facility] BILIRUBIN TOTAL 0.3 0.2 - 1.0 mg/dL 11/14/2019 6:46 AM CDT [facility] ALKALINE PHOSPHATASE 157(H) 35 - 104 U/L 11/14/2019 6:46 AM CDT [facility] AST 34 10 - 35 U/L 11/14/2019 6:46 AM CDT [facility] ALT 27 <=35 U/L 11/14/2019 6:46 AM CDT [facility] GFR 49 mL/min/1. 73 sq meter 11/14/2019 6:46 AM CDT [facility] Comment: eGFR has not been [...] 73 sq meter 11/14/2019 6:46 AM CDT [facility] ANION GAP 10 9 - 20 mmol/L 11/14/2019 6:46 AM T [facility] Blood Collection / Unknown 11/14/2019 4:40 AM CDT 11/14/2019 5:56 AM CDT us Elio Luevano MD CHEMISTRY ORDERABLES Final Resu lt [facility] [address] [place] [address] * (ABNORMAL) CBC WITHOUT DIFFERENTIAL (11/14/2019 4:40 AM CDT) WBC 7.7 4.8 - 10.8 K/uL 11/14/2019 6:15 AM CDT [facility] RBC 2.63(L) 4.20 - 5.40 M/uL 11/14/2019 6:15 AM CDT [facility] HEMOGLOBIN 8.2(L) 12.0 - 16.0 g/dL 11/14/2019 6:15 AM CDT [facility] HEMATOCRIT 25.1(L) 36.0 - 46.0 % 11/14/2019 6:15 AM CDT [facility] MCV 95.4 84.0 - 103.0 fL 11/14/2019 6:15 AM CDT [facility] MCH 31.2 27.0 - 34.0 pg 11/14/2019 6:15 AM CDT [facility] MCHC 32.7 30.0 - 35.0 g/dL 11/14/2019 6:15 AM CDT [facility] PLATELETS 151 140 - 440 K/uL 11/14/2019 6:15 AM CDT [facility] MPV 11.0 8.9 - 12.8 fL 11/14/2019 6:15 AM T [facility] RDW 14.7(H) 11.0 - 14.5 % 11/14/2019 6:15 AM CDT [facility] RDW-STDEV 50.9 37.0 - 54.0 fL 11/14/2019 6:15 AM T [facility] Blood Collection / Unknown 11/14/2019 4:40 AM CDT 11/14/2019 5:56 AM CDT us Elio Luevano MD HEMATOLOGY ORDERABLES Final Res ult [facility] [address] [place] [address] documented in this encounter Visit Diagnoses Not on filedocumented in this encounter
--- OUTSIDE RECORDS SUMMARY | 2025-04-17 16:36 | XMS_ITS | Encounter Summary ---
Author Organization [facility] Address [address] [place] [address] Care Team Providers Care Cafeteria Counter Attendant Name Role Phone Unavailable Primary Care Provider Unavailabl e Encounter Details Date Type Department Care Team (Late st Contact Info) Description 11/09/2019 Lab Requisition [facility] Laboratory Services [address] [place] [address] [place] [address] Cristiane Minor NP [address] [place] [address] Social History Tobacco Use Types Packs/Day Years Used Date Smoking Tobacco: Never Assessed Comments Unknown Sex and Gender Information Value Date Recorded Sex Assigned at Not on file Legal Sex Female 3:20 AM SLOPE TENDER Gender Identity Not on file Sexual Orientation [...] - 145 mmol/L 11/09/2019 6:27 AM CDT [facility] POTASSIUM 4.2 3.5 - 5.1 mmol/L 11/09/2019 6:27 AM CDT [facility] CHLORIDE 101 98 - 107 mmol/L 11/09/2019 6:27 AM CDT [facility] CO2 29 22 - 29 mmol/L 11/09/2019 6:27 AM CDT [facility] CALCIUM 9.0 8.8 - 10.2 mg/dL 11/09/2019 6:27 AM CDT [facility] BUN 28(H) 8 - 23 mg/dL 11/09/2019 6:27 AM [facility] CREATININE 0.90 0.51 - 0.95 mg/dL 11/09/2019 6:27 AM T [facility] Comment:The GFR result is no t clinically significant on patients <18 or >70 years of age. GLUCOSE 156(H) 74 - 99 mg/dL 11/09/2019 6:27 AM T [facility] GFR >60 mL/min/1.7 3 sq meter 11/09/2019 6:27 AM T [facility] Comment: eGFR has not been validated [...] 3 sq meter 11/09/2019 6:27 AM CDT [facility] ANION GAP 11 9 - 20 mmol/L 11/09/2019 6:27 AM T [facility] Blood Collection / Unknown 11/09/2019 4:15 AM CDT 11/09/2019 5:58 AM CDT us Cristiane Minor NP CHEMISTRY ORDERABLES Final Resu lt [facility] [address] [place] [address] documented in this encounter Visit Diagnoses Not on filedocumented in this encounter
--- OUTSIDE RECORDS SUMMARY | 2025-04-17 16:36 | XMS_ITS | Encounter Summary ---
Author Organization [facility] Address [address] [place] [address] Care Team Providers Care Cloth Piecer Name Role Phone Unavailable Primary Care Provider Unavailabl e Encounter Details Date Type Department Care Team (Latest Contact Info) Description 02/06/1998 Outpatient Historical [facility] Family Medicine [place] [address] [phone] Pavel Montoya MD NO ADDRESS ON FILE Other disorders of Eustachian tube(381.89) (Primary Dx) Social History Tobacco Use Types Packs/Day Years Used Date Smoking Tobacco: Never Assessed Comments Unknown Sex and Gender Information Value Date Recorded Sex Assigned at Not on file Legal Sex Female 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
--- OUTSIDE RECORDS SUMMARY | 2025-04-17 16:36 | XMS_ITS | Encounter Summary ---
Author Organization [facility] Address [address] [place] [address] Care Team Providers Care Chemical Pathologist Name Role Phone Unavailable Primary Care Provider Unavailabl e Encounter Details Date Type Department Care Team (Latest Contact Info) Description 06/14/1998 Outpatient Historical [facility] Family Medicine [place] [address] [phone] Pavel Montoya MD NO ADDRESS ON FILE Acute bronchitis (Primary Dx) Social History Tobacco Use Types Packs/Day Years Used Date Smoking Tobacco: Never Assessed Comments Unknown Sex and Gender Information Value Date Recorded Sex Assigned at Not on file Legal Sex Female 3:20 AM HEAD WAITER Gender Identity Not on file Sexual Orientation Not on file documented as of this encounter Plan of Treatment Not on file documented as of this encounter Visit Diagnoses Diagnosis Acute bronchitis- Primary documented in this encounter
--- OUTSIDE RECORDS SUMMARY | 2025-04-17 16:36 | XMS_ITS | Encounter Summary ---
Author Organization [facility] Address [address] [place] [address] Care Team Providers Care Steel Analyst Name Role Phone Unavailable Primary Care Provider Unavailabl e Encounter Details Date Type Department Care Team (Late st Contact Info) Description 11/11/2019 Lab Requisition [facility] Laboratory Services [address] [place] [address] [place] [phone] Kathrine Toney FNP NO ADDRESS ON FILE Social History Tobacco Use Types Packs/Day Years Used Date Smoking Tobacco: Never Assessed Comments Unknown Sex and Gender Information Value Date Recorded Sex Assigned at Not on file Legal Sex Female 3: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
--- OUTSIDE RECORDS SUMMARY | 2025-04-17 16:37 | XMS_ITS | Encounter Summary ---
Author Organization [facility] Address [address] [place] [address] Care Team Providers Care Sheet Pile Driver Operator Name Role Phone Unavailable Primary Care Provider Unavailabl e Encounter Details Date Type Department Care Team (Latest Contact Info) Description 04/29/1999 Outpatient Historical [facility] Family Medicine [place] [id number] [phone] Venecia March, DO [address] [place] [address] Acute sinusitis, unspecified (Primary Dx); Acute bronchitis Social History Tobacco Use Types Packs/Day Years Used Date Smoking Tobacco: Never Assessed Comments Unknown Sex and Gender Information Value Date Recorded Sex Assigned at Not on file Legal Sex Female 3:20 AM COMPREHENSIVE ADVISOR Gender Identity Not on file Sexual Orientation Not on file documented as of this encounter Plan of Treatment Not on file documented as of this encounter Visit Diagnoses Diagnosis Acute sinusitis, unspecified- Primary Acute bronchitis documented in this encounter
--- OUTSIDE RECORDS SUMMARY | 2025-04-17 16:37 | XMS_ITS | Clinical Summary ---
Author Organization [facility] Address [address] [place] [address] Phone Care Team Providers Care Swine Extension Field Specialist Name Role Phone Mandeep Madriagl MD Primary Care Provider [phone] Allergies No known active allergies Medications albuterol (PROVENTIL,VENTOL IN) 2.5 mg /3 mL (0.083 %) Solution for Nebulization Take 1 mL by inhalation every 6 hours as needed for Shortness of Breath. Active fluticasone propionate (FLONASE) 50 mcg/spray [place], Suspension nasal inhaler Administer 2 Sprays in [...] alcohol) LAST DRINK WAS [address] [facility] [email or web address] Answer Date Recorded In the past 12 months has [facility], gas, oil, or water [email or web address] threatened to shut off services in your [...] week 08/24/2023 How often do you attend chur ch or religion services? Patient declined 08/24/2023 Do you belong to any clubs o r organizations such as religion groups, unions, fraternal or athletic groups, or [...] on file Legal Sex Female 9:12 AM PIANO MOVER Gender Identity Not on file Sexual Orientation [...] (#1) 2024 Insurance [employer] DUAL COMPLETE O [facility] [id number] [place] Advance Directives For more information, please contact: [phone] Documents on File Type Date Recorded Patient Skip Pitman Expl anation Advance Directive POA 08/31/2023 3:50 PM Ad coats Directive POA Advance Directive POA 08/24/2023 7:00 PM * Full Code (Latest Code Status on File) Date Activated Date Inactivated Comments 09/05/2023 2:42 AM 09/09/2023 4:05 PM * Default Full Code - Needs Discussion Date Activated Date Inactivated Comments 08/23/2023 3:19 PM 08/26/2023 7:42 PM Care Teams Swine Extension Field Specialist Relationship Specialty Start Date End Date Mandeep Madrigal MD [address] [address] PCP - General Family Practice 09/05/23
--- OUTSIDE RECORDS SUMMARY | 2025-04-17 16:37 | XMS_ITS | Encounter Summary ---
Author Organization [facility] Address [address] [place] [address] Care Team Providers Care Environmental Maintenance Worker Name Role Phone Unavailable Primary Care Provider Unavailabl e Encounter Details Date Type Department Care Team (Latest Contact Info) Description 10/07/1999 Outpatient Historical [facility] Family Medicine [place] [address] [phone] Pavel Montoya MD NO ADDRESS ON FILE Impacted cerumen (Primary Dx); Dermatophytosis of foot Social History Tobacco Use Types Packs/Day Years Used Date Smoking Tobacco: Never Assessed Comments Unknown Sex and Gender Information Value Date Recorded Sex Assigned at Not on file Legal Sex Female 3:20 AM FRUIT PITTER Gender Identity Not on file Sexual Orientation Not on file documented as of this encounter Plan of Treatment Not on file documented as of this encounter Visit Diagnoses Diagnosis Impacted cerumen- Primary Dermatophytosis of foot documented in this encounter
--- OUTSIDE RECORDS SUMMARY | 2025-04-17 16:37 | XMS_ITS | Encounter Summary ---
Author Organization [employer] [facility] Address [address] [place] [address] Care Team Providers Care Field Checker Name Role Phone Unavailable Primary Care Provider Unavailabl e Encounter Details Date Type Department Care Team (Late st Contact Info) Description 11/03/2019 Lab Requisition [facility] Laboratory Services [address] [place] [address] [place] [phone] [place] [address] [place] [address] Social History Tobacco Use Types Packs/Day Years Used Date Smoking Tobacco: Never Assessed Comments Unknown Sex and Gender Information Value Date Recorded Sex Assigned at Not on file Legal Sex Female 3:20 AM MEDICAL DOCTOR MD Gender Identity Not on file Sexual Orientation [...] - 2.4 mg/dL 11/03/2019 7:23 AM CDT [facility] [employer] [facility] Blood Collection / Unknown 11/03/2019 3:20 AM CDT 11/03/2019 7:05 AM CDT us Elio Luevano MD CHEMISTRY ORDERABLES Final Resu lt [facility] [address] [place] [address] * (ABNORMAL) COMPREHENSIVE METABOLIC PANEL (11/03/2019 3:20 AM CDT) SODIUM 146(H) 136 - 145 mmol/L 11/03/2019 7:23 AM CDT [facility] POTASSIUM 3.7 3.5 - 5.1 mmol/L 11/03/2019 7:23 AM T [facility] CHLORIDE 107 98 - 107 mmol/L 11/03/2019 7:23 AM T [facility] CO2 31(H) 22 - 29 mmol/L 11/03/2019 7:23 AM T [facility] CALCIUM 8.4(L) 8.8 - 10.2 mg/dL 11/03/2019 7:23 AM T [facility] BUN 32(H) 8 - 23 mg/dL 11/03/2019 7:23 AM T [facility] CREATININE 1.04(H) 0.51 - 0.95 mg/dL 11/03/2019 7:23 AM T [facility] Comment:The GFR result is no t clinically significant on patients <18 or >70 years of age. GLUCOSE 144(H) 74 - 99 mg/dL 11/03/2019 7:23 AM T [facility] TOTAL PROTEIN 6.1(L) 6.4 - 8.3 g/dL 11/03/2019 7:23 AM T [facility] ALBUMIN 3.0(L) 3.5 - 5.2 g/dL 11/03/2019 7:23 AM T [facility] BILIRUBIN TOTAL 0.6 0.2 - 1.0 mg/dL 11/03/2019 7:23 AM T [facility] ALKALINE PHOSPHATASE 133(H) 35 - 104 U/L 11/03/2019 7:23 AM T [facility] AST 32 10 - 35 U/L 11/03/2019 7:23 AM T [facility] ALT 19 <=35 U/L 11/03/2019 7:23 AM CDT [facility] GFR 52 mL/min/1. 73 sq meter 11/03/2019 7:23 AM T [facility] Comment: eGFR has not been [...] 73 sq meter 11/03/2019 7:23 AM T [facility] ANION GAP 8(L) 9 - 20 mmol/L 11/03/2019 7:23 AM T [facility] Blood Collection / Unknown 11/03/2019 3:20 AM CDT 11/03/2019 7:05 AM CDT us Elio Luevano MD CHEMISTRY ORDERABLES Final Resu lt [facility] [address] [place] [address] * (ABNORMAL) CBC WITHOUT DIFFERENTIAL (11/03/2019 3:20 AM CDT) WBC 11.8(H) 4.8 - 10.8 K/uL 11/03/2019 7:12 AM T [facility] RBC 3.03(L) 4.20 - 5.40 M/uL 11/03/2019 7:12 AM T [facility] HEMOGLOBIN 9.0(L) 12.0 - 16.0 g/dL 11/03/2019 7:12 AM CDT [facility] HEMATOCRIT 29.0(L) 36.0 - 46.0 % 11/03/2019 7:12 AM CDT [facility] MCV 95.7 84.0 - 103.0 fL 11/03/2019 7:12 AM CDT [facility] MCH 29.7 27.0 - 34.0 pg 11/03/2019 7:12 AM CDT [facility] MCHC 31.0 30.0 - 35.0 g/dL 11/03/2019 7:12 AM CDT [facility] PLATELETS 272 140 - 440 K/uL 11/03/2019 7:12 AM CDT [facility] MPV 10.1 8.9 - 12.8 fL 11/03/2019 7:12 AM CDT [facility] RDW 13.8 11.0 - 14.5 % 11/03/2019 7:12 AM T [facility] RDW-STDEV 47.9 37.0 - 54.0 fL 11/03/2019 7:12 AM T [facility] Blood Collection / Unknown 11/03/2019 3:20 AM CDT 11/03/2019 7:05 AM CDT us Elio Luevano MD HEMATOLOGY ORDERABLES Final Res ult [facility] [address] [place] [address] documented in this encounter Visit Diagnoses Not on filedocumented in this encounter
--- OUTSIDE RECORDS SUMMARY | 2025-04-17 16:37 | XMS_ITS | Encounter Summary ---
Author Organization [facility] Address [address] [place] [address] Care Team Providers Care Bradder Name Role Phone Unavailable Primary Care Provider Unavailabl e Encounter Details Date Type Department Care Team (Latest Contact Info) Description 02/17/2000 Outpatient Historical [facility] Family Medicine [place] [id number] [phone] Venecia March, DO [address] [place] [address] Esophageal reflux (Primary Dx); Unspecified essential hypertension; Unspecified hemorrhoids without mention of complication Social History Tobacco Use Types Packs/Day Years Used Date Smoking Tobacco: Never Assessed Comments Unknown Sex and Gender Information Value Date Recorded Sex Assigned at Not on file Legal Sex Female 3:20 AM GEOMATICS PROFESSOR Gender Identity Not on file Sexual Orientation Not on file documented as of this encounter Plan of Treatment Not on file documented as of this encounter Visit Diagnoses Diagnosis Esophageal reflux- Primary Unspecified essential hypertension Unspecified hemorrhoids without mention of complication documented in this encounter
--- OUTSIDE RECORDS SUMMARY | 2025-04-17 16:37 | XMS_ITS | Encounter Summary ---
Author Organization [facility] Address [address] [place] [address] Care Team Providers Care Administrative Secretary Name Role Phone Unavailable Primary Care Provider Unavailabl e Encounter Details Date Type Department Care Team (Latest Contact Info) Description 10/25/1998 Outpatient Historical [facility] Family Medicine [place] [address] [phone] Pavel Montoya MD NO ADDRESS ON FILE Cellulitis and abscess of unspecified site (Primary Dx); Enlargement of lymph nodes; Other symptoms referable to ankle and foot joint Social History Tobacco Use Types Packs/Day Years Used Date Smoking Tobacco: Never Assessed Comments Unknown Sex and Gender Information Value Date Recorded Sex Assigned at Not on file Legal Sex Female 3:20 AM BENCH MOVER Gender Identity Not on file Sexual Orientation Not on file documented as of this encounter Plan of Treatment Not on file documented as of this encounter Visit Diagnoses Diagnosis Cellulitis and abscess of unspecified site- Primary Enlargement of lymph nodes Other symptoms referable to ankle and foot joint documented in this encounter
--- OUTSIDE RECORDS SUMMARY | 2025-04-17 16:37 | XMS_ITS | Encounter Summary ---
Author Organization [facility] Address [address] Hernandez: [place] [address] Care Team Providers Care Electronic Publications Specialist Name Role Phone Unavailable Primary Care [...] on file Legal Sex Female 3:20 AM LIBRARY SERVICES COORDINATOR Gender Identity Not on file Sexual Orientation Not on file documented as of this encounter Plan of Treatment Not on file documented as of this encounter Visit Diagnoses Not on filedocumented in this encounter
--- OUTSIDE RECORDS SUMMARY | 2025-04-17 16:37 | XMS_ITS | Encounter Summary ---
Author Organization [facility] Address [address] [place] [address] Care Team Providers Care Barge Hand Name Role Phone Unavailable Primary Care Provider Unavailabl e Encounter Details Date Type Department Care Team (Latest Contact Info) Description 01/15/2000 Outpatient Historical [facility] Family Medicine [place] [address] [phone] Venecia March, DO [address] [place] [address] Unspecified essential hypertension (Primary Dx); Esophageal reflux; Allergic rhinitis, cause unspecified Social History Tobacco Use Types Packs/Day Years Used Date Smoking Tobacco: Never Assessed Comments Unknown Sex and Gender Information Value Date Recorded Sex Assigned at Not on file Legal Sex Female 3:20 AM DIRECTOR [place] Gender Identity Not on file Sexual Orientation Not on file documented as of this encounter Plan of Treatment Not on file documented as of this encounter Visit Diagnoses Diagnosis Unspecified essential hypertension- Primary Esophageal reflux Allergic rhinitis, cause unspecified documented in this encounter
--- OUTSIDE RECORDS SUMMARY | 2025-04-17 16:37 | XMS_ITS | Encounter Summary ---
Author Organization [facility] Address [address] Hernandez: [place] [address] Care Team Providers Care Spooling Operator Name Role Phone Unavailable Primary Care [...] on file Legal Sex Female 3:20 AM HEALTHCARE INTERPRETER Gender Identity Not on file Sexual Orientation Not on file documented as of this encounter Plan of Treatment Not on file documented as of this encounter Visit Diagnoses Not on filedocumented in this encounter
--- OUTSIDE RECORDS SUMMARY | 2025-04-17 16:37 | XMS_ITS | Encounter Summary ---
Author Organization [facility] Address [address] [place] [address] Care Team Providers Care Sap Basis Architect Name Role Phone Unavailable Primary Care Provider Unavailabl e Encounter Details Date Type Department Care Team (Latest Contact Info) Description 12/10/1999 Outpatient Historical [facility] Family Medicine [place] [id number] [phone] Venecia March, DO [address] [place] [address] Abdominal pain, unspecified site (Primary Dx); Unspecified essential hypertension Social History Tobacco Use Types Packs/Day Years Used Date Smoking Tobacco: Never Assessed Comments Unknown Sex and Gender Information Value Date Recorded Sex Assigned at Not on file Legal Sex Female 3:20 AM SITE SUPERVISOR Gender Identity Not on file Sexual Orientation Not on file documented as of this encounter Plan of Treatment Not on file documented as of this encounter Visit Diagnoses Diagnosis Abdominal pain, unspecified site- Primary Unspecified essential hypertension documented in this encounter
--- OUTSIDE RECORDS SUMMARY | 2025-04-17 16:37 | XMS_ITS | Encounter Summary ---
Author Organization [facility] Address [address] [place] [address] Care Team Providers Care Game Advisor Name Role Phone Unavailable Primary Care Provider Unavailabl e Encounter Details Date Type Department Care Team (Latest Contact Info) Description 12/04/1999 Outpatient Historical [facility] Family Medicine [place] [id number] [phone] Venecia March, DO [address] [place] [address] Abdominal pain, epigastric (Primary Dx); Unspecified hemorrhoids without mention of complication Social History Tobacco Use Types Packs/Day Years Used Date Smoking Tobacco: Never Assessed Comments Unknown Sex and Gender Information Value Date Recorded Sex Assigned at Not on file Legal Sex Female 3:20 AM DISABILITY PROGRAM NAVIGATOR Gender Identity Not on file Sexual Orientation Not on file documented as of this encounter Plan of Treatment Not on file documented as of this encounter Visit Diagnoses Diagnosis Abdominal pain, epigastric- Primary Unspecified hemorrhoids without mention of complication documented in this encounter
--- OUTSIDE RECORDS SUMMARY | 2025-04-17 16:37 | XMS_ITS | Encounter Summary ---
Author Organization [facility] Address [address] [place] [address] Care Team Providers Care Lime Sludge Kiln Operator Name Role Phone Unavailable Primary Care Provider Unavailabl e Encounter Details Date Type Department Care Team (Latest Contact Info) Description 12/03/2001 Outpatient Historical [facility] Augustin Can MD ESOPHAGEAL REFLUX (Primary Dx) Social History Tobacco Use Types Packs/Day Years Used Date Smoking Tobacco: Never Assessed Comments Unknown Sex and Gender Information Value Date Recorded Sex Assigned at Not on file Legal Sex Female 3:20 AM RESOURCE MANAGEMENT SPECIALIST Gender Identity Not on file Sexual Orientation Not on file documented as of this encounter Plan of Treatment Not on file documented as of this encounter Visit Diagnoses Diagnosis Esophageal reflux- Primary documented in this encounter
--- OUTSIDE RECORDS SUMMARY | 2025-04-17 16:37 | XMS_ITS | Encounter Summary ---
Author Organization [email or web address] Address [address] [place] [address] Care Team Providers Care Travel Insurance Agent Name Role Phone Unavailable Primary Care Provider Unavailabl e Encounter Details Date Type Department Care Team (Late st Contact Info) Description 11/02/2019 Lab Requisition [facility] Laboratory Services [address] [place] [phone] [place] [address] [place] [address] Social History Tobacco Use Types Packs/Day Years Used Date Smoking Tobacco: Never Assessed Comments Unknown Sex and Gender Information Value Date Recorded Sex Assigned at Not on file 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 Gender Identity Not on file Sexual Orientation [...] - 4.5 mg/dL 11/02/2019 10:12 AM CDT [facility] [employer] [facility] Blood Collection / Unknown 11/02/2019 4:03 AM CDT 11/02/2019 9:51 AM CDT Elio Luevano MD CHEMISTRY ORDERABLES Final Resu lt Performing Organization Address [facility] Co de Phone Number [address] [address] * MAGNESIUM LEVEL (11/02/2019 4:03 AM CDT) Pathologist [facility] MAGNESIUM 2.3 1.6 - 2.4 mg/dL 11/02/2019 10:12 AM CDT [facility] Blood Collection / Unknown 11/02/2019 4:03 AM CDT 11/02/2019 9:51 AM CDT Elio Luveano MD CHEMISTRY ORDERABLES Final Resu lt Performing Organization Address [facility] de Phone Number [place] [phone] [place] [address] * (ABNORMAL) CBC WITH DIFFERENTIAL (11/02/2019 4:03 AM CDT) Pathologist [facility] WBC 13.2(H) 4.8 - 10.8 K/uL 11/02/2019 9:59 AM CDT [facility] RBC 3.19(L) 4.20 - 5.40 M/uL 11/02/2019 9:59 AM CDT [facility] HEMOGLOBIN 9.4(L) 12.0 - 16.0 g/dL 11/02/2019 9:59 AM CDT [facility] HEMATOCRIT 31.0(L) 36.0 - 46.0 % 11/02/2019 9:59 AM CDT [facility] MCV 97.2 84.0 - 103.0 fL 11/02/2019 9:59 AM CDT [facility] MCH 29.5 27.0 - 34.0 pg 11/02/2019 9:59 AM CDT [facility] MCHC 30.3 30.0 - 35.0 g/dL 11/02/2019 9:59 AM [facility] RDW 13.6 11.0 - 14.5 % 11/02/2019 9:59 AM [facility] RDW-STDEV 48.2 37.0 - 54.0 fL 11/02/2019 9:59 AM [facility] PLATELETS 248 140 - 440 K/uL 11/02/2019 9:59 AM [facility] MPV 10.0 8.9 - 12.8 fL 11/02/2019 9:59 AM [facility] NEUTROPHILS 76(H) 42 - 75 % 11/02/2019 9:59 AM [facility] LYMPHOCYTES 9(L) 24 - 44 % 11/02/2019 9:59 AM [facility] MONOCYTES 9 2 - 10 % 11/02/2019 9:59 AM [facility] EOSINOPHILS 4 0 - 7 % 11/02/2019 9:59 AM [facility] BASOPHILS 1 0 - 1 % 11/02/2019 9:59 AM [facility] IMMATURE GRANULOCYTES 1 0 - 2 % 11/02/2019 9:59 AM [facility] NEUTROPHIL ABSOLUTE 9.96(H) 2.00 - 8.00 K/uL 11/02/2019 9:59 AM [facility] LYMPHOCYTE ABSOLUTE 1.24 1.20 - 4.00 K/uL 11/02/2019 9:59 AM [facility] MONOCYTE ABSOLUTE 1.20(H) 0.10 - 0.60 K/uL 11/02/2019 9:59 AM [facility] EOSINOPHIL ABSOLUTE 0.52 0.00 - 0.70 K/uL 11/02/2019 9:59 AM [facility] BASOPHILS ABSOLUTE 0.09 0.00 - 0.20 K/uL 11/02/2019 9:59 AM [facility] IMMATURE GRANULOCYTES ABSOLUTE 0.14(H) 0.00 - 0.10 K/uL 11/02/2019 9:59 AM [facility] Blood Collection / Unknown 11/02/2019 4:03 AM CDT 11/02/2019 9:51 AM CDT us Elio Luevano MD HEMATOLOGY ORDERABLES Final Res ult [facility] [address] [place] [address] * (ABNORMAL) COMPREHENSIVE METABOLIC PANEL (11/02/2019 4:03 AM CDT) SODIUM 144 136 - 145 mmol/L 11/02/2019 10:12 AM CDT [facility] POTASSIUM 3.9 3.5 - 5.1 mmol/L 11/02/2019 10:12 AM CDT [facility] CHLORIDE 105 98 - 107 mmol/L 11/02/2019 10:12 AM CDT [facility] CO2 29 22 - 29 mmol/L 11/02/2019 10:12 AM T [facility] CALCIUM 8.3(L) 8.8 - 10.2 mg/dL 11/02/2019 10:12 AM T [facility] BUN 30(H) 8 - 23 mg/dL 11/02/2019 10:12 AM T [facility] CREATININE 1.06(H) 0.51 - 0.95 mg/dL 11/02/2019 10:12 AM T [facility] Comment:The GFR result is no t clinically significant on patients <18 or >70 years of age. GLUCOSE 114(H) 74 - 99 mg/dL 11/02/2019 10:12 AM CDT [facility] TOTAL PROTEIN 6.4 6.4 - 8.3 g/dL 11/02/2019 10:12 AM CDT [facility] ALBUMIN 2.8(L) 3.5 - 5.2 g/dL 11/02/2019 10:12 AM T [facility] BILIRUBIN TOTAL 0.7 0.2 - 1.0 mg/dL 11/02/2019 10:12 AM T [facility] ALKALINE PHOSPHATASE 116(H) 35 - 104 U/L 11/02/2019 10:12 AM [facility] AST 33 10 - 35 U/L 11/02/2019 10:12 AM [facility] ALT 20 <=35 U/L 11/02/2019 10:12 AM T [facility] GFR 51 mL/min/1. 73 sq meter 11/02/2019 10:12 AM T [facility] Comment: eGFR has not been [...] mL/min/1. 73 sq meter 11/02/2019 10:12 AM T [facility] ANION GAP 10 9 - 20 mmol/L 11/02/2019 10:12 AM [facility] Blood Collection / Unknown 11/02/2019 4:03 AM CDT 11/02/2019 9:51 AM CDT us Elio Luevano MD CHEMISTRY ORDERABLES Final Resu lt [facility] [address] [place] [address] documented in this encounter Visit Diagnoses Not on filedocumented in this encounter
--- OUTSIDE RECORDS SUMMARY | 2025-04-17 16:37 | XMS_ITS | Encounter Summary ---
Author Organization [facility] Address [address] 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
--- OUTSIDE RECORDS SUMMARY | 2025-04-17 16:37 | XMS_ITS | Encounter Summary ---
Author Organization [facility] Address [address] [place] [address] Care Team Providers Care Interactive Media Marketing Director Name Role Phone Unavailable Primary Care Provider Unavailabl e Encounter Details Date Type Department Care Team (Latest Contact Info) Description 01/28/2002 Outpatient Historical [facility] Augustin Can MD ESOPHAGEAL REFLUX (Primary Dx) Social History Tobacco Use Types Packs/Day Years Used Date Smoking Tobacco: Never Assessed Comments Unknown Sex and Gender Information Value Date Recorded Sex Assigned at Not on file 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
--- OUTSIDE RECORDS SUMMARY | 2025-04-17 16:37 | XMS_ITS | Encounter Summary ---
Author Organization [facility] Address [address] [place] [address] Care Team Providers Care Auto Glass Technician Name Role Phone Unavailable Primary Care Provider Unavailabl e Encounter Details Date Type Department Care Team (Latest Contact Info) Description 12/15/2001 Outpatient Historical [facility] Medicine [address] [facility] [address] [place] [phone] Augustin Can MD GASTRITIS NEC W/O HEMORRH (Primary Dx) Social History Tobacco Use Types Packs/Day Years Used Date Smoking Tobacco: Never Assessed Comments Unknown Sex and Gender Information Value Date Recorded Sex Assigned at Not on file 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
--- OUTSIDE RECORDS SUMMARY | 2025-04-17 16:37 | XMS_ITS | Encounter Summary ---
Author Organization [facility] Address [address] [place] [address] Care Team Providers Care Die Barber Name Role Phone Unavailable Primary Care Provider Unavailabl e Encounter Details Date Type Department Care Team (Latest Contact Info) Description 06/28/1998 Outpatient Historical [facility] Family Medicine [place] [address] [phone] Pavel Montoya MD NO ADDRESS ON FILE Throat pain (Primary Dx) Social History Tobacco Use Types Packs/Day Years Used Date Smoking Tobacco: Never Assessed Comments Unknown Sex and Gender Information Value Date Recorded Sex Assigned at Not on file 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
--- OUTSIDE RECORDS SUMMARY | 2025-04-17 16:37 | XMS_ITS | Encounter Summary ---
Author Organization [facility] Address [address] [place] [address] Care Team Providers Care Price Economist Name Role Phone Unavailable Primary Care Provider Unavailabl e Encounter Details Date Type Department Care Team (Latest Contact Info) Description 08/19/1999 Outpatient Historical [facility] Family Medicine [place] [address] [phone] Pavel Montoya MD NO ADDRESS ON FILE Osteoarthrosis, unspecified whether generalized or localized, unspecified site (Primary Dx); Unspecified endocrine disorder; Other hammer toe (acquired) Social History Tobacco Use Types Packs/Day Years Used Date Smoking Tobacco: Never Assessed Comments Unknown Sex and Gender Information Value Date Recorded Sex Assigned at Not on file 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
--- OUTSIDE RECORDS SUMMARY | 2025-04-17 16:37 | XMS_ITS | Encounter Summary ---
Author Organization [facility] Address [address] [place] [address] Care Team Providers Care New Accounts Clerk Name Role Phone Unavailable Primary Care Provider Unavailabl e Encounter Details Date Type Department Care Team (Late st Contact Info) Description 11/02/2019 Lab Requisition [facility] Laboratory Services [address] [place] [phone] Elio Luevano [place] [id number] [place] [phone] Social History Tobacco Use Types Packs/Day Years Used Date Smoking Tobacco: Never Assessed Comments Unknown Sex and Gender Information Value Date Recorded Sex Assigned at Not on file 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
--- OUTSIDE RECORDS SUMMARY | 2025-04-17 16:37 | XMS_ITS | Encounter Summary ---
Author Organization [facility] Address [address] [place] [address] Care Team Providers Care City Auditor Name Role Phone Unavailable Primary Care Provider Unavailabl e Encounter Details Date Type Department Care Team (Latest Contact Info) Description 12/18/1999 Outpatient Historical [facility] Family Medicine [place] [id number] [phone] Venecia March, DO [address] [place] [address] Unspecified essential hypertension (Primary Dx); Esophageal reflux Social History Tobacco Use Types Packs/Day Years Used Date Smoking Tobacco: Never Assessed Comments Unknown Sex and Gender Information Value Date Recorded Sex Assigned at Not on file 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
[2025-04-17 16:39] VITALS: BP 147/59; PULSE 87; RESP 18; TEMP 36.8; O2SAT 98
--- NOTE | 2025-04-17 16:50 | XRR_ITS ---
PROCEDURE INFORMATION: Exam: XR Left Knee Exam date and time: 04/17/2025 5:04 PM Age: 79 years old Clinical indication: Knee pain, no known injury TECHNIQUE: Imaging protocol: Radiologic exam of the left knee. Views: 3 views. COMPARISON: CR XR foot LT 2V [id number] 08/28/2023 11:41 AM FINDINGS: Bones/joints: Diffuse osseous demineralization. There is minimal cortical irregularity involving the medial tibial plateau seen only on AP images which is not redemonstrated on oblique or lateral views. No displaced fracture. Prominent patellar and tibial enthesophytes. Soft tissues: Normal. XR/XR knee LT 3V* [id number] IMPRESSION: Minimal cortical irregularity involving the medial tibial plateau seen only on AP images which may be projectional/artifactual or represent a nondisplaced fracture. Recommend clinical correlation and consideration of CT or MRI if there is persistent clinical concern.
[2025-04-17] MEDS: oxyCODONE-APAP 5-325 mg Tablet 1 TAB PO (16:57)
--- NOTE | 2025-04-17 17:08 | W.ED.EXTPRO ---
Documented by User: CORBY Li 04/17/25 18:26 HPI - Extremity Problem General: Chief complaint: Extremity Injury, Lower Stated complaint: KNEE PAIN Time Seen by Provider: 04/17/25 16:45 Source: patient Mode of arrival: EMS Limitations: no limitations History of Present Illness: Patient is a 79-year-old female who presents emergency department by ambulance for left knee pain that began last night. States that she went to bed last night okay woke up in the [place] with the pain and states that today she has had difficulty walking. Denies any injury that she knows of. States that she is set to have back surgery in April and normally she is ambulatory without difficulty but today has required use of wheelchair. Denies any swelling to the knee, no redness, no fevers, no other symptoms of systemic illness. No previous surgical history of the left knee. She states that she chronically takes [place] and gabapentin for pain. Pain noted to be mostly to the lateral aspect of the left knee, denies any difficulty with range of motion just dates that there is pain with bearing weight. Vitals are stable at this time patient nontoxic-appearing. MD Complaint: joint pain Onset (ago): hour(s) Pain Consistency: constant Location: left and knee Exacerbating factors: weight bearing and walking Associated symptoms: Deny chest pain, fever(s) or rash Related Data Home Medications ?Medication ?Instructions ?Recorded ?Confirmed aspirin 81 mg tablet,delayed 81 mg PO QAM 08/27/23 04/06/25 release omeprazole 40 mg capsule,delayed 40 mg PO QAM 08/27/23 04/06/25 release peg 400-propylene glycol (PF) 0.4 1 drp ophthalmic (eye) QID PRN Dry 08/27/23 04/06/25 %-0.3 % eye drops in a dropperette Eyes (Systane (PF)) atorvastatin 80 mg tablet 80 mg PO QPM 09/16/23 04/06/25 B6 1.7 mg-folic 400 mcg-B12 2.4 1 cap PO DAILY 09/23/24 04/06/25 [id number] oral capsule (Neuriva Plus Brain Bioincept) ascorbic acid (vitamin C) 500 mg 500 mg PO DAILY 09/23/24 04/06/25 capsule cholecalciferol (vitamin D3) 50 50 mcg PO DAILY 09/23/24 04/06/25 mcg (2,000 unit) capsule deutetrabenazine 24 mg 24 mg PO DAILY 09/23/24 04/06/25 tablet,extended release 24 hr (Austedo XR) ncjclfzx-[id number] 4 mg-folic acid 1 tab PO DAILY 09/23/24 04/06/25 200 mcg-vit K 25 mcg-lutein tablet (Centrum Minis Women 50 Plus) nervive Nerve Relief Supplement 1 tab PO DAILY 09/23/24 04/06/25 oxymetazoline 0.05 % nasal mist 2 spray intranasal Q12H PRN 09/23/24 04/06/25 (Afrin (oxymetazoline)) Allergy Symptoms vitamins-lipotropics tablet 1 tab PO DAILY 09/23/24 04/06/25 cranberry 500 mg capsule 500 mg PO TID 10/08/24 04/06/25 Previous Rx's ?Medication ?Instructions ?Recorded losartan 25 mg tablet 25 mg PO DAILY #100 tabs 09/26/24 metoprolol succinate 50 mg 50 mg PO QAM #90 tabs 11/28/24 tablet,extended release 24 hr ropinirole 2 mg tablet 2 mg PO BID #60 tabs 02/07/25 hydrocodone 7.5 mg-acetaminophen 1 tab PO Q6H PRN pain 30 days #120 03/07/25 325 mg tablet tabs deutetrabenazine 6 mg tablet 6 mg PO BID 90 days #180 tabs 03/14/25 (Austedo) deutetrabenazine 6 mg tablet 6 mg PO DAILY 14 days #14 tabs 03/14/25 (Austedo) gabapentin 100 mg capsule 200 mg (2 x 100 mg) PO TID 30 days 04/06/25 #180 caps Allergies Allergy/AdvReac Type Severity Reaction Status Date / Time linaclotide (From WhiteSmokezess) Allergy Unknown Verified 04/17/25 16:43 Review of Systems General: Reports: 10 or more systems reviewed and unremarkable except in HPI and below Const: Denies: fever(s) or chills Card: Denies: chest pain Resp: Denies: dyspnea or productive cough GI: Denies: abdominal pain, nausea, vomiting or diarrhea : Denies: flank pain Musc: Reports: joint pain (left knee); Denies: neck pain, back pain, extremity pain, extremity swelling, joint swelling, joint redness, joint warmth, limited range of motion or muscle weakness Skin/Breast: Denies: rash Neuro: Denies: headache(s), numbness in extremities or weakness in extremities PFSH ED PFSH: Medical History Degeneration of intervertebral disc of lumbar region with discogenic back pain and lower extremity pain History of pericarditis Thrombocytopenic disorder DM II (diabetes mellitus, type II), controlled HTN (hypertension) Altered mental status Acute hypoxemic respiratory failure Pneumonia Multiple falls Generalized weakness At risk for aspiration Dysphagia Physical deconditioning Neurologic gait disorder Demyelinating disease of central nervous system Restrictive lung disease Postoperative atrial fibrillation Currently on amiodarone. Acute kidney injury Acute respiratory failure with hypoxia Left acute arterial ischemic stroke, MCA (middle cerebral artery) Shortness of breath tPA adm status 24 hr SEWER HAND July 2023 Orthostatic hypotension Tardive dyskinesia DNR (do not resuscitate) Hypercholesterolemia Chronic obstructive pulmonary disease, unspecified Labyrinthitis Backache Bipolar affective disorder Arthropathy, unspecified RLS (restless legs syndrome) Sleep apnea Peripheral vertigo Irritable bowel syndrome Aortic stenosis, severe Surgical History History of kyphoplasty L5 and S1 History of nasal surgery Status post aortic valve replacement with bioprosthetic valve History of abdominal hysterectomy H/O foot surgery H/O eye surgery H/O oral surgery Hx of cholecystectomy History of appendectomy Family History Other Hypertension Social History Smoking and tobacco/nicotine status: never used tobacco/nicotine Quit status (tobacco/nicotine): has quit using Year quit tobacco: 1979 Former quit date comment: 4-5 cigarettes per day X 6 months Second hand smoke exposure: No Alcohol intake: never Substance/Drug Use: never Additional social history: Patient states she used CBD Gummies to lower her blood pressure. She lives alone with her Jaclyn. Her sister Pearl Hinton is her next of kin. 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 Patient wants DNR status as discussed today with Markos Lopez MD on 10/07/2024 Caregiver/support person: Yes Lives independently: Yes Household members: none Housing: House Marital status: / Current occupational status: retired and disabled Pets and animals: Yes Pets & animals: dog(s) Do you think of yourself as: Straight/Heterosexual Current gender identity: Female Physical Exam Const: COMMON NORMALS: no acute distress, patient oriented x3, no limitations, healthy appearing, alert and well nourished OTHER: Nontoxic-appearing HENMT: COMMON NORMALS: normocephalic and atraumatic HEAD & SCALP: normocephalic and atraumatic Neck/C-Spine: COMMON NORMALS: full ROM, supple and no meningeal signs Extremity: COMMON NORMALS: normal to inspection, full ROM, capillary refill normal, no joint enlargement and no clubbing, cyanosis or edema NARRATIVE EXTREMITY EXAM: Tender to palpation to left lateral knee joint line, no signs of trauma or deformity. There is no bruising or swelling of the left knee. No redness or warmth noted to the joint. Full range of motion, though with pain. Distal neurovascular exam is intact. No calf tenderness. Neuro: COMMON NORMALS: patient oriented x3, moves all extremities, no focal motor deficits and no sensory deficits noted SENSORIUM/ORIENTATION: Yes alert MENINGEAL SIGNS: Yes no meningeal signs Skin: COMMON NORMALS: no rashes or lesions noted GENERAL SKIN EXAM: no rashes or lesions noted Course Vital Signs: Vital signs: Vital Signs Temperature 98.3 F 04/17/25 16:39 Pulse Rate 83 04/17/25 18:26 Respiratory Rate 18 04/17/25 16:39 Blood Pressure 126/77 04/17/25 18:26 Pulse Oximetry 98 04/17/25 18:26 Oxygen Delivery Me thod Room Air 04/17/25 16:39 MDM - Extremity (Nontraumatic) Medical Decision Making Patient presented with atraumatic left knee pain since this morning, states she woke up with the pain. History of chronic pain she takes gabapentin and [place] chronically. On exam there is no concerning visual findings, there is no redness swelling bruising or other signs of trauma. She has full range of motion, tender to palpation to the lateral aspect with no obvious signs of deformity. An x-ray did not show any acute findings there was question of cortical irregularity to the medial aspect the patient is palpated here and nontender suspect that this is projectional. With the patient's history of chronic pain, and the overall normal physical exam I have very low suspicion that this is any acute injurious process and patient will continue to take her regular prescribed medications for home and follow-up with primary care if she continues to worsen as at that point she will require MRI likely. Patient does agree with this plan and will be discharged at this time. Patient was nontoxic-appearing at time of examination and has not had any systemic symptoms of fever or chills or nausea/vomiting. Lab Data Radiology Impressions Knee X-Ray 04/17/25 16:50 IMPRESSION: Minimal cortical irregularity involving the medial tibial plateau seen only on AP images which may be projectional/artifactual or represent a nondisplaced fracture. Recommend clinical correlation and consideration of CT or MRI if there is persistent clinical concern. All radiology interpretation(s) finalized by discharge Discharge Plan Discharge Patient Disposition: Home Clinical Impression: Knee pain, left Qualifiers: Chronicity: acute Qualified Code(s): M25.562 - Pain in left knee Condition: Stable Prescriptions: No Action vitamins-lipotropics Tablet 1 tab PO DAILY Afrin (oxymetazoline) 0.05 % mist 2 spray intranasal Q12H PRN (Reason: Allergy Symptoms) cholecalciferol (vitamin D3) 50 mcg (2,000 unit) capsule 50 mcg PO DAILY ascorbic acid (vitamin C) 500 mg capsule 500 mg PO DAILY Neuriva Plus Brain Performance 1.7 mg-400 mcg- 2.4 mcg capsule 1 cap PO DAILY Austedo XR 24 mg tablet extended release 24 hr 24 mg PO DAILY Centrum Minis Women 50 Plus 4 mg iron-200 mcg-25 mcg tablet 1 tab PO DAILY nervive Nerve Relief Supplement 1 tab PO DAILY Austedo 6 mg tablet 6 mg PO DAILY 14 Days Qty: 14 0RF Austedo 6 mg tablet 6 mg PO BID 90 Days Qty: 180 3RF ropinirole 2 mg tablet 2 mg PO BID Qty: 60 5RF hydrocodone-acetaminophen 7.5-325 mg tablet 1 tab PO Q6H PRN (Reason: pain) 30 Days Qty: 120 0RF gabapentin 100 mg capsule 200 mg PO TID 30 Days Qty: 180 5RF losartan 25 mg tablet 25 mg PO DAILY Qty: 100 1RF metoprolol succinate 50 mg tablet extended release 24 hr 50 mg PO QAM Qty: 90 1RF omeprazole 40 mg Capsule,Delayed Release(Dr/Ec) 40 mg PO QAM aspirin 81 mg Tablet,Delayed Release (Dr/Ec) 81 mg PO QAM Systane (PF) 0.4-0.3 % Dropperette 1 drp OPHTHALMIC (EYE) QID PRN (Reason: Dry Eyes) atorvastatin 80 mg Tablet 80 mg PO QPM cranberry 500 mg Capsule 500 mg PO TID Rx Instructions: administer with meals Discharge Orders: Discharge ED (Routine); Ordered 04/17/25 Ordered By: Edmond Snider Referrals: Anupam Geiger DO [Primary Care Provider, Family Practice] Patient Instructions: Opioid Safety, Pain Management, Patient Portal & Viky Instructions Activity Restrictions/Additional Instructions: Knee Pain Discharge Instructions Diagnosis: Left knee pain, suspected benign cause What happened during your visit: You came to the hospital with left knee pain that started when you woke up. We examined your knee and took X-rays, which did not show any broken bones or other serious problems. Your knee pain is likely due to a common condition that can be managed at home. What to do at home: Pain Management: - Continue taking your gabapentin and hydrocodone as prescribed - You may also use iwzt-fnz-gskfdaa acetaminophen (Tylenol) if needed, but do not exceed 3,000 mg per day total and avoid taking it if you already take medications containing acetaminophen - Apply ice to your knee for 15-20 minutes at a time, several times per day, to help reduce pain and swelling Activity and Exercise: - Stay active - gentle movement and exercise are important for knee pain recovery and will not harm your knee - Start with low-impact activities like walking at a comfortable pace - Avoid activities that cause severe pain, but mild discomfort during exercise is normal and safe - Consider physical therapy if your pain does not improve - exercise therapy is one of the most effective treatments for knee pain Weight Management: - If you are overweight, losing even a small amount of weight can significantly reduce knee pain What to avoid: - Prolonged sitting or staying in one position for too long - High-impact activities like running or jumping until your pain improves - Completely stopping all activity - this can make knee pain worse over time When to return to the emergency department or call your doctor: - Severe worsening of pain that is not controlled by your medications - New inability to bear weight on your leg - Significant swelling, redness, or warmth in your knee - Fever (temperature above 100.4?F) - Knee gives out or feels very unstable - Any new numbness or tingling in your leg or foot Follow-up: - Schedule an appointment with your primary care doctor within 1-2 weeks - Your doctor may refer you to physical therapy or recommend additional treatments if your pain does not improve Important reminders: - Take your medications exactly as prescribed - Most knee pain improves with time and conservative treatment - Exercise and staying active are safe and beneficial for your knee, even though it may feel uncomfortable at first Print Language: Kenyan Coding Level of Care Code 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 [employer] Documented by User: Geronimo Jose DO 04/17/25 19:14 HPI - Extremity Problem General: Chief complaint: Extremity Injury, Lower Stated complaint: KNEE PAIN Time Seen by Provider: 04/17/25 16:45 Related Data Home Medications ?Medication ?Instructions ?Recorded ?Confirmed aspirin 81 mg tablet,delayed 81 mg PO QAM 08/27/23 04/06/25 release omeprazole 40 mg capsule,delayed 40 mg PO QAM 08/27/23 04/06/25 release peg 400-propylene glycol (PF) 0.4 1 drp ophthalmic (eye) QID PRN Dry 08/27/23 04/06/25 %-0.3 % eye drops in a dropperette Eyes (Systane (PF)) atorvastatin 80 mg tablet 80 mg PO QPM 09/16/23 04/06/25 B6 1.7 mg-folic 400 mcg-B12 2.4 1 cap PO DAILY 09/23/24 04/06/25 fyq-iirswc-vezjdjojwhyg oral capsule (Neuriva Plus Brain Bioincept) ascorbic acid (vitamin C) 500 mg 500 mg PO DAILY 09/23/24 04/06/25 capsule cholecalciferol (vitamin D3) 50 50 mcg PO DAILY 09/23/24 04/06/25 mcg (2,000 unit) capsule deutetrabenazine 24 mg 24 mg PO DAILY 09/23/24 04/06/25 tablet,extended release 24 hr (Austedo XR) efahfpoh-nxb-uojn 4 mg-folic acid 1 tab PO DAILY 09/23/24 04/06/25 200 mcg-vit K 25 mcg-lutein tablet (Centrum Minis Women 50 Plus) nervive Nerve Relief Supplement 1 tab PO DAILY 09/23/24 04/06/25 oxymetazoline 0.05 % nasal mist 2 spray intranasal Q12H PRN 09/23/24 04/06/25 (Afrin (oxymetazoline)) Allergy Symptoms vitamins-lipotropics tablet 1 tab PO DAILY 09/23/24 04/06/25 cranberry 500 mg capsule 500 mg PO TID 10/08/24 04/06/25 Previous Rx's ?Medication ?Instructions ?Recorded losartan 25 mg tablet 25 mg PO DAILY #100 tabs 09/26/24 metoprolol succinate 50 mg 50 mg PO QAM #90 tabs 11/28/24 tablet,extended release 24 hr ropinirole 2 mg tablet 2 mg PO BID #60 tabs 02/07/25 hydrocodone 7.5 mg-acetaminophen 1 tab PO Q6H PRN pain 30 days #120 03/07/25 325 mg tablet tabs deutetrabenazine 6 mg tablet 6 mg PO BID 90 days #180 tabs 03/14/25 (Austedo) deutetrabenazine 6 mg tablet 6 mg PO DAILY 14 days #14 tabs 03/14/25 (Austedo) gabapentin 100 mg capsule 200 mg (2 x 100 mg) PO TID 30 days 04/06/25 #180 caps Allergies Allergy/AdvReac Type Severity Reaction Status Date / Time linaclotide (From Linzess) Allergy Unknown Verified 04/17/25 16:43 [facility] ED PFSH: Medical History Degeneration of intervertebral disc of lumbar region with discogenic back pain and lower extremity pain History of pericarditis Thrombocytopenic disorder DM II (diabetes mellitus, type II), controlled HTN (hypertension) Altered mental status Acute hypoxemic respiratory failure Pneumonia Multiple falls Generalized weakness At risk for aspiration Dysphagia Physical deconditioning Neurologic gait disorder Demyelinating disease of central nervous system Restrictive lung disease Postoperative atrial fibrillation Currently on amiodarone. Acute kidney injury Acute respiratory failure with hypoxia Left acute arterial ischemic stroke, MCA (middle cerebral artery) Shortness of breath tPA adm status 24 hr SEWER HAND July 2023 Orthostatic hypotension Tardive dyskinesia DNR (do not resuscitate) Hypercholesterolemia Chronic obstructive pulmonary disease, unspecified Labyrinthitis Backache Bipolar affective disorder Arthropathy, unspecified RLS (restless legs syndrome) Sleep apnea Peripheral vertigo Irritable bowel syndrome Aortic stenosis, severe Surgical History History of kyphoplasty L5 and S1 History of nasal surgery Status post aortic valve replacement with bioprosthetic valve History of abdominal hysterectomy H/O foot surgery H/O eye surgery H/O oral surgery Hx of cholecystectomy History of appendectomy Family History Other Hypertension Social History Smoking and tobacco/nicotine status: never used tobacco/nicotine Quit status (tobacco/nicotine): has quit using Year quit tobacco: 1979 Former quit date comment: 4-5 cigarettes per day X 6 months Second hand smoke exposure: No Alcohol intake: never Substance/Drug Use: never Additional social history: Patient states she used CBD Gummies to lower her blood pressure. She lives alone with her Jaclyn. Her sister Pearl Hinton is her next of kin. 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 Patient wants DNR status as discussed today with Markos Lopez MD on 10/07/2024 Caregiver/support person: Yes Lives independently: Yes Household members: none Housing: House Marital status: / Current occupational status: retired and disabled Pets and animals: Yes Pets & animals: dog(s) Do you think of yourself as: Straight/Heterosexual Current gender identity: Female Course Vital Signs: Vital signs: Vital Signs Temperature 98.3 F 04/17/25 16:39 Pulse Rate 83 04/17/25 18:26 Respiratory Rate 18 04/17/25 16:39 Blood Pressure 126/77 04/17/25 18:26 Pulse Oximetry 98 04/17/25 18:26 Oxygen Delivery Me thod Room Air 04/17/25 16:39 MDM - Extremity (Nontraumatic) Medical Decision Making Patient presented with atraumatic left knee pain since this morning, states she woke up with the pain. History of chronic pain she takes gabapentin and [place] chronically. On exam there is no concerning visual findings, there is no redness swelling bruising or other signs of trauma. She has full range of motion, tender to palpation to the lateral aspect with no obvious signs of deformity. An x-ray did not show any acute findings there was question of cortical irregularity to the medial aspect the patient is palpated here and nontender suspect that this is projectional. With the patient's history of chronic pain, and the overall normal physical exam I have very low suspicion that this is any acute injurious process and patient will continue to take her regular prescribed medications for home and follow-up with primary care if she continues to worsen as at that point she will require MRI likely. Patient does agree with this plan and will be discharged at this time. Patient was nontoxic-appearing at time of examination and has not had any systemic symptoms of fever or chills or nausea/vomiting. Chart reviewed and patient discussed with midlevel. Agree with assessment and plan. Lab Data Radiology Impressions Knee X-Ray 04/17/25 16:50 IMPRESSION: Minimal cortical irregularity involving the medial tibial plateau seen only on AP images which may be projectional/artifactual or represent a nondisplaced fracture. Recommend clinical correlation and consideration of CT or MRI if there is persistent clinical concern. Discharge Plan Discharge Patient Disposition: Home Clinical Impression: Knee pain, left Qualifiers: Chronicity: acute Qualified Code(s): M25.562 - Pain in left knee Condition: Stable Prescriptions: No Action vitamins-lipotropics Tablet 1 tab PO DAILY Afrin (oxymetazoline) 0.05 % mist 2 spray intranasal Q12H PRN (Reason: Allergy Symptoms) cholecalciferol (vitamin D3) 50 mcg (2,000 unit) capsule 50 mcg PO DAILY ascorbic acid (vitamin C) 500 mg capsule 500 mg PO DAILY Neuriva Plus Brain Performance 1.7 mg-400 mcg- 2.4 mcg capsule 1 cap PO DAILY Austedo XR 24 mg tablet extended release 24 hr 24 mg PO DAILY Centrum Minis Women 50 Plus 4 mg iron-200 mcg-25 mcg tablet 1 tab PO DAILY nervive Nerve Relief Supplement 1 tab PO DAILY Austedo 6 mg tablet 6 mg PO DAILY 14 Days Qty: 14 0RF Austedo 6 mg tablet 6 mg PO BID 90 Days Qty: 180 3RF ropinirole 2 mg tablet 2 mg PO BID Qty: 60 5RF hydrocodone-acetaminophen 7.5-325 mg tablet 1 tab PO Q6H PRN (Reason: pain) 30 Days Qty: 120 0RF gabapentin 100 mg capsule 200 mg PO TID 30 Days Qty: 180 5RF losartan 25 mg tablet 25 mg PO DAILY Qty: 100 1RF metoprolol succinate 50 mg tablet extended release 24 hr 50 mg PO QAM Qty: 90 1RF omeprazole 40 mg Capsule,Delayed Release(Dr/Ec) 40 mg PO QAM aspirin 81 mg Tablet,Delayed Release (Dr/Ec) 81 mg PO QAM Systane (PF) 0.4-0.3 % Dropperette 1 drp OPHTHALMIC (EYE) QID PRN (Reason: Dry Eyes) atorvastatin 80 mg Tablet 80 mg PO QPM cranberry 500 mg Capsule 500 mg PO TID Rx Instructions: administer with meals Discharge Orders: Discharge ED (Routine); Ordered 04/17/25 Ordered By: Edmond Snider Referrals: Anupam Geiger DO [Primary Care Provider, Family Practice] Patient Instructions: Opioid Safety, Pain Management, Patient Portal & Viky Instructions Activity Restrictions/Additional Instructions: Knee Pain Discharge Instructions Diagnosis: Left knee pain, suspected benign cause What happened during your visit: You came to the hospital with left knee pain that started when you woke up. We examined your knee and took X-rays, which did not show any broken bones or other serious problems. Your knee pain is likely due to a common condition that can be managed at home. What to do at home: Pain Management: - Continue taking your gabapentin and hydrocodone as prescribed - You may also use nube-dwc-qzqxrrs acetaminophen (Tylenol) if needed, but do not exceed 3,000 mg per day total and avoid taking it if you already take medications containing acetaminophen - Apply ice to your knee for 15-20 minutes at a time, several times per day, to help reduce pain and swelling Activity and Exercise: - Stay active - gentle movement and exercise are important for knee pain recovery and will not harm your knee - Start with low-impact activities like walking at a comfortable pace - Avoid activities that cause severe pain, but mild discomfort during exercise is normal and safe - Consider physical therapy if your pain does not improve - exercise therapy is one of the most effective treatments for knee pain Weight Management: - If you are overweight, losing even a small amount of weight can significantly reduce knee pain What to avoid: - Prolonged sitting or staying in one position for too long - High-impact activities like running or jumping until your pain improves - Completely stopping all activity - this can make knee pain worse over time When to return to the emergency department or call your doctor: - Severe worsening of pain that is not controlled by your medications - New inability to bear weight on your leg - Significant swelling, redness, or warmth in your knee - Fever (temperature above 100.4?F) - Knee gives out or feels very unstable - Any new numbness or tingling in your leg or foot Follow-up: - Schedule an appointment with your primary care doctor within 1-2 weeks - Your doctor may refer you to physical therapy or recommend additional treatments if your pain does not improve Important reminders: - Take your medications exactly as prescribed - Most knee pain improves with time and conservative treatment - Exercise and staying active are safe and beneficial for your knee, even though it may feel uncomfortable at first Print Language: Kenyan Coding Level of Care Code 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
[2025-04-17 18:26] VITALS: BP 126/77; PULSE 83; O2SAT 98
== END 2025-04-17 18:27 | disposition home or self-care (01) ==
PROVIDERS: Emergency Provider Physician Assistant; PCP Family Medicine
DX: M25.562 Pain in left knee (principal); Z79.82 Long term (current) use of aspirin; Z87.891 Personal history of nicotine dependence; E11.9 Type 2 diabetes mellitus without complications; I10 Essential (primary) hypertension
CPT/HCPCS: 73562; 99283; J9999

== ENCOUNTER 2025-04-23 11:15 | Observation (INO) | payer MEDICARE, MEDICAID, SELFPAY ==
--- OUTSIDE RECORDS SUMMARY | 2025-04-23 11:18 | XMS_ITS | Encounter Summary ---
Author Organization 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
--- OUTSIDE RECORDS SUMMARY | 2025-04-23 11:18 | XMS_ITS | Encounter Summary ---
Author Organization [facility] Address [address] [place] [address] Care Team Providers Care Analytics Architect Name Role Phone Unavailable Primary Care Provider Unavailabl e Encounter Details Date Type Department Care Team (Latest Contact Info) Description 10/07/[address] [facility] Family Medicine [place] [address] [phone] Pavel Montoya MD NO ADDRESS ON FILE Impacted cerumen (Primary Dx); Dermatophytosis of foot Social History Tobacco Use Types Packs/Day Years Used Date Smoking Tobacco: Never Assessed Comments Unknown Sex and Gender Information Value Date Recorded Sex Assigned at Not on file Legal Sex Female 3:20 AM BOX STACKER Gender Identity Not on file Sexual Orientation Not on file documented as of this encounter Plan of Treatment Not on file documented as of this encounter Visit Diagnoses Diagnosis Impacted cerumen- Primary Dermatophytosis of foot documented in this encounter
--- OUTSIDE RECORDS SUMMARY | 2025-04-23 11:18 | XMS_ITS | Encounter Summary ---
Author Organization [facility] Address [address] [place] [address] Care Team Providers Care Oncologist Name Role Phone Unavailable Primary Care Provider Unavailabl e Encounter Details Date Type Department Care Team (Late st Contact Info) Description 11/11/2019 Lab Requisition [facility] Laboratory Services [address] [place] [address] [place] [address] Cristiane Minor NP [address] [place] [address] Social History Tobacco Use Types Packs/Day Years Used Date Smoking Tobacco: Never Assessed Comments Unknown Sex and Gender Information Value Date Recorded Sex Assigned at Not on file 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 Gender Identity Not on file Sexual [...] Detected Not Detected 11/11/2019 7:02 AM CDT [facility] Aqua Access [facility] Stool STOOL SPECIMEN / Unknown Collection / Unknown 11/11/2019 2:00 AM CDT 11/11/2019 5:52 AM CDT Narrative [facility] - 11/11/2019 7:02 AM CDT This [...] ORDERABL ES Final Result Performing Organization Address [facility]/State/ZIP Co de Phone Number [facility] LABORATORY SERVICES [place] [address] [place] [address] documented in this encounter Visit Diagnoses Not on filedocumented in this encounter
--- OUTSIDE RECORDS SUMMARY | 2025-04-23 11:18 | XMS_ITS | Encounter Summary ---
Author Organization [facility] Address [address] [place] [address] Care Team Providers Care Purification Operator Name Role Phone Unavailable Primary Care Provider Unavailabl e Encounter Details Date Type Department Care Team (Latest Contact Info) Description 01/28/[address] [facility] Augustin Can MD ESOPHAGEAL REFLUX (Primary Dx) Social History Tobacco Use Types Packs/Day Years Used Date Smoking Tobacco: Never Assessed Comments Unknown Sex and Gender Information Value Date Recorded Sex Assigned at Not on file Legal Sex Female 3:20 AM CORNETIST Gender Identity Not on file Sexual Orientation Not on file documented as of this encounter Plan of Treatment Not on file documented as of this encounter Visit Diagnoses Diagnosis Esophageal reflux- Primary documented in this encounter
--- OUTSIDE RECORDS SUMMARY | 2025-04-23 11:18 | XMS_ITS | Encounter Summary ---
Author Organization [facility] Address [address] [place] [address] Care Team Providers Care Tire Classifier Name Role Phone Unavailable Primary Care Provider Unavailabl e Encounter Details Date Type Department Care Team (Late st Contact Info) Description 11/10/2019 Lab Requisition [facility] Laboratory Services [address] [place] [address] [place] [address] Cristiane Minor NP [address] [place] [address] Social History Tobacco Use Types Packs/Day Years Used Date Smoking Tobacco: Never Assessed Comments Unknown Sex and Gender Information Value Date Recorded Sex Assigned at Not on file Legal Sex Female 3:20 AM SPARE HAND Gender Identity Not on file Sexual Orientation [...] to dark yellow 11/10/2019 12:51 PM CDT [facility] [place] [facility] CLARITY UA Cloudy(A) Clear 11/10/2019 12:51 PM [facility] SPECIFIC GRAVITY UA 1.016 1.003 - 1.035 11/10/2019 12:51 PM [facility] PH UA 5.0 5.0 - 8.0 11/10/2019 12:51 PM [facility] LEUKOCYTE ESTERASE UA Negative Negative 11/10/2019 12:51 PM [facility] NITRITE UA Negative Negative 11/10/2019 12:51 PM [facility] PROTEIN UA Negative Negative 11/10/2019 12:51 PM [facility] GLUCOSE UA Negative Negative 11/10/2019 12:51 PM [facility] KETONES UA Negative Negative 11/10/2019 12:51 PM [facility] UROBILINOGEN UA <2.0 <2.0 mg/dL 0 12:51 PM [facility] BILIRUBIN UA Negative Negative 11/10/2019 12:51 PM [facility] BLOOD UA Negative Negative 11/10/2019 12:51 PM [facility] Comment:Ascorbic acid may ca use false negative results for blood. A microscopic review was reflexed to rule out this interference. WBC UA 0-2 0 - 2 /hpf 11/10/2019 12:51 PM [facility] RBC UA 0-2 0 - 2 /hpf 11/10/2019 12:51 PM [facility] BACTERIA UA Negative Negative /hpf 11/10/2019 12:51 PM [facility] HYALINE CAST 0-2 None Seen, 0-2 /lpf 11/10/2019 12:51 PM [facility] AMORPHOUS CRYSTAL Present(A) Absent 11/10/2019 12:51 PM [facility] COMMENT, URINE Mucous: Few 0 12:51 PM [facility] Ascorbic Acid UA Positive(A) Negative 11/10/2019 12:51 PM [facility] Urine URINE SPECIMEN / Unknown Collection / Unknown 11/10/2019 4:55 PM CDT 11/10/2019 12:16 PM CDT Cristiane Minor NP URINE ORDERABLES Final Result Performing Organization Address [facility] Co de Phone Number [address] [address] * LACTIC ACID (11/10/2019 12:00 PM CDT) LACTIC ACID 0.7 <=2.0 mmol/L 11/10/2019 12:43 PM CDT [facility] Blood Collection / Unknown 11/10/2019 12:00 PM CDT 11/10/2019 12:14 PM CDT Cristiane Minor NP CHEMISTRY ORDERABLES Final Resu lt Performing Organization Address [facility] Co de Phone Number [address] [address] * (ABNORMAL) PROCALCITONIN (11/10/2019 11:55 AM CDT) PROCALCITONIN 0.80(H) <=0.08 ng/mL 11/10/2019 1:01 PM CDT [facility] Blood Collection / Unknown 11/10/2019 11:55 AM CDT 11/10/2019 12:31 PM CDT Narrative [facility] - 11/10/2019 1:01 PM CDT The [...] ORDERABLES Final Resu lt Performing Organization Address [facility] Co de Phone Number [facility] [place] [facility] [address] [place] [address] * BLOOD CULTURE (11/10/2019 11:34 AM CDT) BLOOD CULTURE No growth 11/15/2019 12:49 PM CDT [facility] [place] [facility] Blood (Peripheral) 11/10/2019 11:34 AM CDT 11/10/2019 12:18 PM CDT us Cristiane Minor NP MICROBIOLOGY - GENERAL ORDERABL ES Final Result Performing Organization Address [facility] Co de Phone Number [facility] [address] [place] [address] documented in this encounter Visit Diagnoses Not on filedocumented in this encounter
--- OUTSIDE RECORDS SUMMARY | 2025-04-23 11:18 | XMS_ITS | Encounter Summary ---
Author Organization [facility] Address [address] [place] [address] Care Team Providers Care Shirt Operator Name Role Phone Unavailable Primary Care Provider Unavailabl e Encounter Details Date Type Department Care Team (Late st Contact Info) Description 11/07/2019 Lab Requisition [facility] [address] [place] [address] [place] [phone] Carlos Tripp DO [address] [place] [address] Social History Tobacco Use Types Packs/Day Years Used Date Smoking Tobacco: Never Assessed Comments Unknown Sex and Gender Information Value Date Recorded Sex Assigned at Not on file 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 Gender Identity Not on file Sexual Orientation Not on file documented as of this encounter Plan of Treatment Not on file documented as of this encounter Procedures Procedure Name Priority Date/Time Associated Diagnosis Comments BLOOD CULTURE Stat 11/07/2019 9:30 PM CDT documented in this encounter Results * BLOOD CULTURE (11/07/2019 9:30 PM CDT) BLOOD CULTURE No growth 11/13/2019 5:39 AM CDT [facility] Blood (Peripheral) Collection / Unknown 11/07/2019 9:30 PM CDT 11/07/2019 11:19 PM CDT Carlos Tripp DO MICROBIOLOGY - GENERAL ORD ERABLES Final Result [facility] [address] [place] [address] documented in this encounter Visit Diagnoses Not on filedocumented in this encounter
--- OUTSIDE RECORDS SUMMARY | 2025-04-23 11:18 | XMS_ITS | Encounter Summary ---
Author Organization [facility] Address [address] [place] [address] Care Team Providers Care Exploitation Analyst Name Role Phone Unavailable Primary Care Provider Unavailabl e Encounter Details Date Type Department Care Team (Late st Contact Info) Description 11/02/[address] 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 Gender Identity Not on file Sexual Orientation [...] - 4.5 mg/dL 11/02/2019 10:12 AM CDT [facility] Blood Collection / Unknown 11/02/2019 4:03 AM CDT 11/02/2019 9:51 AM CDT Elio Luevano MD CHEMISTRY ORDERABLES Final Resu lt Performing Organization Address [facility] Co de Phone Number [address] [address] * MAGNESIUM LEVEL (11/02/2019 4:03 AM CDT) Pathologist [facility] MAGNESIUM 2.3 1.6 - 2.4 mg/dL 11/02/2019 10:12 AM CDT [facility] Blood Collection / Unknown 11/02/2019 4:03 AM CDT 11/02/2019 9:51 AM CDT Elio Luevano MD CHEMISTRY ORDERABLES Final Resu lt Performing Organization Address [facility] de Phone Number [place] [place] [address] * (ABNORMAL) CBC WITH DIFFERENTIAL (11/02/2019 4:03 AM CDT) Pathologist [facility] WBC 13.2(H) 4.8 - 10.8 K/uL 11/02/2019 9:59 AM CDT [facility] RBC 3.19(L) 4.20 - 5.40 M/uL 11/02/2019 9:59 AM CDT [facility] HEMOGLOBIN 9.4(L) 12.0 - 16.0 g/dL 11/02/2019 9:59 AM CDT [facility] HEMATOCRIT 31.0(L) 36.0 - 46.0 % 11/02/2019 9:59 AM CDT [facility] MCV 97.2 84.0 - 103.0 fL 11/02/2019 9:59 AM CDT [facility] MCH 29.5 27.0 - 34.0 pg 11/02/2019 9:59 AM CDT [facility] MCHC 30.3 30.0 - 35.0 g/dL 11/02/2019 9:59 AM [facility] RDW 13.6 11.0 - 14.5 % 11/02/2019 9:59 AM [facility] RDW-STDEV 48.2 37.0 - 54.0 fL 11/02/2019 9:59 AM [facility] PLATELETS 248 140 - 440 K/uL 11/02/2019 9:59 AM [facility] MPV 10.0 8.9 - 12.8 fL 11/02/2019 9:59 AM [facility] NEUTROPHILS 76(H) 42 - 75 % 11/02/2019 9:59 AM [facility] LYMPHOCYTES 9(L) 24 - 44 % 11/02/2019 9:59 AM [facility] MONOCYTES 9 2 - 10 % 11/02/2019 9:59 AM [facility] EOSINOPHILS 4 0 - 7 % 11/02/2019 9:59 AM [facility] BASOPHILS 1 0 - 1 % 11/02/2019 9:59 AM [facility] IMMATURE GRANULOCYTES 1 0 - 2 % 11/02/2019 9:59 AM [facility] NEUTROPHIL ABSOLUTE 9.96(H) 2.00 - 8.00 K/uL 11/02/2019 9:59 AM [facility] LYMPHOCYTE ABSOLUTE 1.24 1.20 - 4.00 K/uL 11/02/2019 9:59 AM [facility] MONOCYTE ABSOLUTE 1.20(H) 0.10 - 0.60 K/uL 11/02/2019 9:59 AM [facility] EOSINOPHIL ABSOLUTE 0.52 0.00 - 0.70 K/uL 11/02/2019 9:59 AM [facility] BASOPHILS ABSOLUTE 0.09 0.00 - 0.20 K/uL 11/02/2019 9:59 AM [facility] IMMATURE GRANULOCYTES ABSOLUTE 0.14(H) 0.00 - 0.10 K/uL 11/02/2019 9:59 AM [facility] Blood Collection / Unknown 11/02/2019 4:03 AM CDT 11/02/2019 9:51 AM CDT us Elio Luevano MD HEMATOLOGY ORDERABLES Final Res ult [facility] [address] [place] [address] * (ABNORMAL) COMPREHENSIVE METABOLIC PANEL (11/02/2019 4:03 AM CDT) SODIUM 144 136 - 145 mmol/L 11/02/2019 10:12 AM CDT [facility] POTASSIUM 3.9 3.5 - 5.1 mmol/L 11/02/2019 10:12 AM CDT [facility] CHLORIDE 105 98 - 107 mmol/L 11/02/2019 10:12 AM CDT [facility] CO2 29 22 - 29 mmol/L 11/02/2019 10:12 AM T [facility] CALCIUM 8.3(L) 8.8 - 10.2 mg/dL 11/02/2019 10:12 AM T [facility] BUN 30(H) 8 - 23 mg/dL 11/02/2019 10:12 AM T [facility] CREATININE 1.06(H) 0.51 - 0.95 mg/dL 11/02/2019 10:12 AM T [facility] Comment:The GFR result is no t clinically significant on patients <18 or >70 years of age. GLUCOSE 114(H) 74 - 99 mg/dL 11/02/2019 10:12 AM CDT [facility] TOTAL PROTEIN 6.4 6.4 - 8.3 g/dL 11/02/2019 10:12 AM CDT [facility] ALBUMIN 2.8(L) 3.5 - 5.2 g/dL 11/02/2019 10:12 AM T [facility] BILIRUBIN TOTAL 0.7 0.2 - 1.0 mg/dL 11/02/2019 10:12 AM T [facility] ALKALINE PHOSPHATASE 116(H) 35 - 104 U/L 11/02/2019 10:12 AM [facility] AST 33 10 - 35 U/L 11/02/2019 10:12 AM [facility] ALT 20 <=35 U/L 11/02/2019 10:12 AM T [facility] GFR 51 mL/min/1. 73 sq meter 11/02/2019 10:12 AM T [facility] Comment: eGFR has not [...] 73 sq meter 11/02/2019 10:12 AM T [facility] ANION GAP 10 9 - 20 mmol/L 11/02/2019 10:12 AM [facility] Blood Collection / Unknown 11/02/2019 4:03 AM CDT 11/02/2019 9:51 AM CDT us Elio Luevano MD CHEMISTRY ORDERABLES Final Resu lt [facility] [address] [place] [address] documented in this encounter Visit Diagnoses Not on filedocumented in this encounter
--- OUTSIDE RECORDS SUMMARY | 2025-04-23 11:18 | XMS_ITS | Encounter Summary ---
Author Organization [facility] Address [address] [place] [address] Care Team Providers Care Continuous Improvement Facilitator Name Role Phone Unavailable Primary Care Provider Unavailabl e Encounter Details Date Type Department Care Team (Latest Contact Info) Description 06/22/1998 Outpatient Historical [facility] Family Medicine [address] [phone] Pavel Montoya MD NO ADDRESS ON FILE Acute pharyngitis (Primary Dx); Esophagitis, unspecified Social History Tobacco Use Types Packs/Day Years Used Date Smoking Tobacco: Never Assessed Comments Unknown Sex and Gender Information Value Date Recorded Sex Assigned at Not on file 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
--- OUTSIDE RECORDS SUMMARY | 2025-04-23 11:18 | XMS_ITS | Encounter Summary ---
Author Organization [facility] Address [address] [place] [address] Care Team Providers Care Door Clamp Operator Name Role Phone Unavailable Primary Care Provider Unavailabl e Encounter Details Date Type Department Care Team (Latest Contact Info) Description 01/15/2000 Outpatient Historical [facility] Family Medicine [place] [id number] [phone] Venecia March, DO [address] [place] [address] Unspecified essential hypertension (Primary Dx); Esophageal reflux; Allergic rhinitis, cause unspecified Social History Tobacco Use Types Packs/Day Years Used Date Smoking Tobacco: Never Assessed Comments Unknown Sex and Gender Information Value Date Recorded Sex Assigned at Not on file Legal Sex Female 3:20 AM SPOOL SANDER Gender Identity Not on file Sexual Orientation Not on file documented as of this encounter Plan of Treatment Not on file documented as of this encounter Visit Diagnoses Diagnosis Unspecified essential hypertension- Primary Esophageal reflux Allergic rhinitis, cause unspecified documented in this encounter
--- OUTSIDE RECORDS SUMMARY | 2025-04-23 11:18 | XMS_ITS | Encounter Summary ---
Author Organization [facility] Address [address] [place] [address] Care Team Providers Care Accounts Receivable Administrator Name Role Phone Unavailable Primary Care Provider Unavailabl e Encounter Details Date Type Department Care Team (Latest Contact Info) Description 12/15/2001 Outpatient Historical [facility] [place] [address] [facility] [address] [place] [phone] Augustin Can MD GASTRITIS NEC W/O HEMORRH (Primary Dx) Social History Tobacco Use Types Packs/Day Years Used Date Smoking Tobacco: Never Assessed Comments Unknown Sex and Gender Information Value Date Recorded Sex Assigned at Not on file Legal 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
--- OUTSIDE RECORDS SUMMARY | 2025-04-23 11:18 | XMS_ITS | Encounter Summary ---
Author Organization [facility] Address [address] [place] [address] Care Team Providers Care Tool Design Engineer Name Role Phone Unavailable Primary Care Provider Unavailabl e Encounter Details Date Type Department Care Team (Latest Contact Info) Description 12/18/1999 Outpatient Historical [facility] Family Medicine [place] [id number] [phone] Venecia March, DO [address] [place] [address] Unspecified essential hypertension (Primary Dx); Esophageal reflux Social History Tobacco Use Types Packs/Day Years Used Date Smoking Tobacco: Never Assessed Comments Unknown Sex and Gender Information Value Date Recorded Sex Assigned at Not on file Legal Sex Female 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
--- OUTSIDE RECORDS SUMMARY | 2025-04-23 11:18 | XMS_ITS | Encounter Summary ---
Author Organization [facility] Address [address] [place] [address] Care Team Providers Care Hammer Setter Name Role Phone Unavailable Primary Care Provider Unavailabl e Encounter Details Date Type Department Care Team (Late st Contact Info) Description 11/17/2019 Lab Requisition [facility] Laboratory Services [address] [place] [phone] Kathrine Toney, ADJUSTMENT CLERK NO ADDRESS ON FILE Social History Tobacco Use Types Packs/Day Years Used Date Smoking Tobacco: Never Assessed Comments Unknown Sex and Gender Information Value Date Recorded Sex Assigned at Not on file Legal 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 Due to the current public health emergency, [facility] is receiving a high volume of samples [...] about COVID-19 can be found at the [employer] website: www.[employer]valara/Covid19. Upper Respiratory ENTIRE NASOPHARYNX / Unknown Collection / Unknown 11/17/2019 6:11 PM CDT 11/17/2019 8:21 PM CDT Narrative [facility] - 11/19/2019 5:38 AM CDT Performing Organization Information: Site ID: [place] Name: [facility] Address: [address] [address] Director: Guerrero Bland D.O., MPH Kathrine FERNANDEZ MICROBIOLOGY - GENERAL CHARMAINE PAYAN Final Result [facility] [phone] documented in this encounter Visit Diagnoses Not on filedocumented in this encounter
--- OUTSIDE RECORDS SUMMARY | 2025-04-23 11:18 | XMS_ITS | Encounter Summary ---
Author Organization [facility] Address [address] [place] [address] Care Team Providers Care Mechanical Field Engineer Name Role Phone Unavailable Primary Care Provider Unavailabl e Encounter Details Date Type Department Care Team (Latest Contact Info) Description 08/19/1999 Outpatient Historical [facility] [place] [address] [phone] Pavel Montoya MD NO ADDRESS ON FILE Osteoarthrosis, unspecified whether generalized or localized, unspecified site (Primary Dx); Unspecified endocrine disorder; Other hammer toe (acquired) Social History Tobacco Use Types Packs/Day Years Used Date Smoking Tobacco: Never Assessed Comments Unknown Sex and Gender Information Value Date Recorded Sex Assigned at Not on file Legal Sex Female 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
--- OUTSIDE RECORDS SUMMARY | 2025-04-23 11:18 | XMS_ITS | Encounter Summary ---
Author Organization [employer] [facility] Address [address] [place] [address] Care Team Providers Care Triage Register Nurse Name Role Phone Unavailable Primary Care Provider Unavailabl e Encounter Details Date Type Department Care Team (Late st Contact Info) Description 11/07/2019 Lab Requisition [facility] Laboratory Services [address] [place] [phone] [place] [address] [place] [address] Social History Tobacco Use Types Packs/Day Years Used Date Smoking Tobacco: Never Assessed Comments Unknown Sex and Gender Information Value Date Recorded Sex Assigned at Not on file 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 Result may be falsely elevated. CHLORIDE 101 98 - 107 mmol/L 11/07/2019 7:25 AM T [facility] CO2 29 22 - 29 mmol/L 11/07/2019 7:25 AM T [facility] CALCIUM 8.7(L) 8.8 - 10.2 mg/dL 11/07/2019 7:25 AM CDT [facility] BUN 25(H) 8 - 23 mg/dL 11/07/2019 7:25 AM T [facility] CREATININE 0.88 0.51 - 0.95 mg/dL 11/07/2019 7:25 AM T [facility] Comment:The GFR result is no t clinically significant on patients <18 or >70 years of age. GLUCOSE 107(H) 74 - 99 mg/dL 11/07/2019 7:25 AM CDT [facility] TOTAL PROTEIN 6.9 6.4 - 8.3 g/dL 11/07/2019 7:25 AM CDT [facility] ALBUMIN 3.2(L) 3.5 - 5.2 g/dL 11/07/2019 7:25 AM CDT [facility] BILIRUBIN TOTAL 0.4 0.2 - 1.0 mg/dL 11/07/2019 7:25 AM CDT [facility] ALKALINE PHOSPHATASE 111(H) 35 - 104 U/L 11/07/2019 7:25 AM T [facility] AST 37(H) 10 - 35 U/L 11/07/2019 7:25 AM CDT [facility] Comment:Hemolysis present. R esult may be falsely elevated. ALT 18 <=35 U/L 11/07/2019 7:25 AM T [facility] Comment:Hemolysis present. R esult may be falsely elevated. GFR >60 mL/min/1.7 3 sq meter 11/07/2019 7:25 AM T [facility] Comment: eGFR has not been validated for [...] sq meter 11/07/2019 7:25 AM T [facility] ANION GAP 9 9 - 20 mmol/L 11/07/2019 7:25 AM [facility] Blood Collection / Unknown 11/07/2019 3:20 AM CDT 11/07/2019 7:10 AM CDT us Elio Luevano MD CHEMISTRY ORDERABLES Final Resu lt [facility] [address] [place] [address] * (ABNORMAL) CBC WITHOUT DIFFERENTIAL (11/07/2019 3:20 AM CDT) WBC 10.2 4.8 - 10.8 K/uL 11/07/2019 7:13 AM T [facility] RBC 3.13(L) 4.20 - 5.40 M/uL 11/07/2019 7:13 AM CDT [facility] HEMOGLOBIN 9.6(L) 12.0 - 16.0 g/dL 11/07/2019 7:13 AM CDT [facility] HEMATOCRIT 30.0(L) 36.0 - 46.0 % 11/07/2019 7:13 AM CDT [facility] MCV 95.8 84.0 - 103.0 fL 11/07/2019 7:13 AM CDT [facility] MCH 30.7 27.0 - 34.0 pg 11/07/2019 7:13 AM CDT [facility] MCHC 32.0 30.0 - 35.0 g/dL 11/07/2019 7:13 AM CDT [facility] PLATELETS 220 140 - 440 K/uL 11/07/2019 7:13 AM T [facility] MPV 10.5 8.9 - 12.8 fL 11/07/2019 7:13 AM [facility] RDW 14.6(H) 11.0 - 14.5 % 11/07/2019 7:13 AM [facility] RDW-STDEV 49.7 37.0 - 54.0 fL 11/07/2019 7:13 AM [facility] Blood Collection / Unknown 11/07/2019 3:20 AM CDT 11/07/2019 7:10 AM CDT us Elio Luevano MD HEMATOLOGY ORDERABLES Final Res ult [facility] [address] [place] [address] documented in this encounter Visit Diagnoses Not on filedocumented in this encounter
--- OUTSIDE RECORDS SUMMARY | 2025-04-23 11:18 | XMS_ITS | Encounter Summary ---
Author Organization [email or web address] [facility] Address [address] [place] [address] Care Team Providers Care Saxophone Player Name Role Phone Unavailable Primary Care Provider Unavailabl e Encounter Details Date Type Department Care Team (Late st Contact Info) Description 11/07/2019 Lab Requisition [facility] [address] [place] [address] [place] [phone] Carlos Tripp DO [address] [place] [address] Social History Tobacco Use Types Packs/Day Years Used Date Smoking Tobacco: Never Assessed Comments Unknown Sex and Gender Information Value Date Recorded Sex Assigned at Not on file 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 Gender Identity Not on file Sexual Orientation Not on file documented as of this encounter Plan of Treatment Not on file documented as of this encounter Procedures Procedure Name Priority Date/Time Associated Diagnosis Comments BLOOD CULTURE Stat 11/07/2019 9:30 PM CDT documented in this encounter Results * BLOOD CULTURE (11/07/2019 9:30 PM CDT) BLOOD CULTURE No growth 11/13/2019 5:39 AM CDT [facility] [employer] [facility] Blood (Peripheral) Collection / Unknown 11/07/2019 9:30 PM CDT 11/07/2019 11:19 PM CDT Carlos Tripp DO MICROBIOLOGY - GENERAL ORD ERABLES Final Result [facility] [employer] [facility] [address] [place] [address] documented in this encounter Visit Diagnoses Not on filedocumented in this encounter
--- OUTSIDE RECORDS SUMMARY | 2025-04-23 11:18 | XMS_ITS | Encounter Summary ---
Author Organization [facility] Address [address] [place] [address] Care Team Providers Care Garbage Pick Up Man Name Role Phone Unavailable Primary Care Provider Unavailabl e Encounter Details Date Type Department Care Team (Latest Contact Info) Description 12/10/1999 Outpatient Historical [facility] Family Medicine [place] [address] [phone] Venecia March, DO [address] [place] [address] Abdominal pain, unspecified site (Primary Dx); Unspecified essential hypertension Social History Tobacco Use Types Packs/Day Years Used Date Smoking Tobacco: Never Assessed Comments Unknown Sex and Gender Information Value Date Recorded Sex Assigned at Not on file Legal 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
--- OUTSIDE RECORDS SUMMARY | 2025-04-23 11:18 | XMS_ITS | Encounter Summary ---
Author Organization [facility] Address [address] [place] [address] Care Team Providers Care Television Writer Name Role Phone Unavailable Primary Care Provider Unavailabl e Encounter Details Date Type Department Care Team (Late st Contact Info) Description 11/19/2019 Lab Requisition [facility] General Laboratory Services [address] [place] [address] [place] [phone] [place] [address] [place] [address] Social History Tobacco Use Types Packs/Day Years Used Date Smoking Tobacco: Never Assessed Comments Unknown Sex and Gender Information Value Date Recorded Sex Assigned at Not on file 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
--- OUTSIDE RECORDS SUMMARY | 2025-04-23 11:18 | XMS_ITS | Encounter Summary ---
Author Organization [facility] Address [address] [place] [address] Care Team Providers Care Phosphatic Fertilizer Supervisor Name Role Phone Unavailable Primary Care Provider Unavailabl e Encounter Details Date Type Department Care Team (Late st Contact Info) Description 11/02/2019 Lab Requisition [facility] General Laboratory Services [address] [place] [address] [place] [phone] Elio Luevano [place] [id number] [place] [address] Social History Tobacco Use Types Packs/Day Years Used Date Smoking Tobacco: Never Assessed Comments Unknown Sex and Gender Information Value Date Recorded Sex Assigned at Not on file 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
--- OUTSIDE RECORDS SUMMARY | 2025-04-23 11:18 | XMS_ITS | Encounter Summary ---
Author Organization [employer] [facility] Address [address] Hernandez: [place] [address] Care Team Providers Care Monotype Setter Name Role Phone Unavailable Primary Care [...] on file Legal Sex Female 3:20 AM TECHNICIAN SUPPORT ASSOCIATION Gender Identity Not on file Sexual Orientation Not on file documented as of this encounter Plan of Treatment Not on file documented as of this encounter Visit Diagnoses Not on filedocumented in this encounter
--- OUTSIDE RECORDS SUMMARY | 2025-04-23 11:18 | XMS_ITS | Encounter Summary ---
Author Organization [employer] [facility] Address [address] 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
--- OUTSIDE RECORDS SUMMARY | 2025-04-23 11:18 | XMS_ITS | Encounter Summary ---
Author Organization [facility] Address [address] [place] [address] Care Team Providers Care Cleaning Handyman Name Role Phone Unavailable Primary Care Provider Unavailabl e Encounter Details Date Type Department Care Team (Late st Contact Info) Description 11/11/2019 Lab Requisition [facility] Laboratory Services [address] [place] [address] 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 Gender Identity Not on file Sexual Orientation [...] - 145 mmol/L 11/11/2019 6:36 AM CDT [facility] POTASSIUM 4.1 3.5 - 5.1 mmol/L 11/11/2019 6:36 AM CDT [facility] CHLORIDE 102 98 - 107 mmol/L 11/11/2019 6:36 AM CDT [facility] CO2 30(H) 22 - 29 mmol/L 11/11/2019 6:36 AM T [facility] CALCIUM 9.0 8.8 - 10.2 mg/dL 11/11/2019 6:36 AM CDT [facility] BUN 26(H) 8 - 23 mg/dL 11/11/2019 6:36 AM T [facility] CREATININE 0.97(H) 0.51 - 0.95 mg/dL 11/11/2019 6:36 AM T [facility] Comment:The GFR result is no t clinically significant on patients <18 or >70 years of age. GLUCOSE 157(H) 74 - 99 mg/dL 11/11/2019 6:36 AM T [facility] GFR 56 mL/min/1. 73 sq meter 11/11/2019 6:36 AM T [facility] Comment: eGFR has not been validated for [...] sq meter 11/11/2019 6:36 AM CDT [facility] ANION GAP 8(L) 9 - 20 mmol/L 11/11/2019 6:36 AM T [facility] Blood Collection / Unknown 11/11/2019 5:02 AM CDT 11/11/2019 5:50 AM CDT us Cristiane Minor NP CHEMISTRY ORDERABLES Final Resu lt [facility] [address] [place] [address] * (ABNORMAL) CBC WITH DIFFERENTIAL (11/11/2019 5:02 AM CDT) [facility] WBC 8.3 4.8 - 10.8 K/uL 11/11/2019 6:12 AM T [facility] RBC 2.88(L) 4.20 - 5.40 M/uL 11/11/2019 6:12 AM [facility] HEMOGLOBIN 8.6(L) 12.0 - 16.0 g/dL 11/11/2019 6:12 AM T [facility] HEMATOCRIT 27.3(L) 36.0 - 46.0 % 11/11/2019 6:12 AM [facility] MCV 94.8 84.0 - 103.0 fL 11/11/2019 6:12 AM [facility] MCH 29.9 27.0 - 34.0 pg 11/11/2019 6:12 AM [facility] MCHC 31.5 30.0 - 35.0 g/dL 11/11/2019 6:12 AM [facility] RDW 14.4 11.0 - 14.5 % 11/11/2019 6:12 AM [facility] RDW-STDEV 49.5 37.0 - 54.0 fL 11/11/2019 6:12 AM [facility] PLATELETS 171 140 - 440 K/uL 11/11/2019 6:12 AM [facility] MPV 10.9 8.9 - 12.8 fL 11/11/2019 6:12 AM [facility] NEUTROPHILS 60 42 - 75 % 11/11/2019 6:12 AM [facility] LYMPHOCYTES 17(L) 24 - 44 % 11/11/2019 6:12 AM T [facility] MONOCYTES 15(H) 2 - 10 % 11/11/2019 6:12 AM [facility] EOSINOPHILS 7 0 - 7 % 11/11/2019 6:12 AM [facility] BASOPHILS 1 0 - 1 % 11/11/2019 6:12 AM T [facility] IMMATURE GRANULOCYTES 1 0 - 2 % 11/11/2019 6:12 AM CDT [facility] NEUTROPHIL ABSOLUTE 5.04 2.00 - 8.00 K/uL 11/11/2019 6:12 AM CDT [facility] LYMPHOCYTE ABSOLUTE 1.43 1.20 - 4.00 K/uL 11/11/2019 6:12 AM CDT [facility] MONOCYTE ABSOLUTE 1.23(H) 0.10 - 0.60 K/uL 11/11/2019 6:12 AM CDT [facility] EOSINOPHIL ABSOLUTE 0.54 0.00 - 0.70 K/uL 11/11/2019 6:12 AM CDT [facility] BASOPHILS ABSOLUTE 0.05 0.00 - 0.20 K/uL 11/11/2019 6:12 AM CDT [facility] IMMATURE GRANULOCYTES ABSOLUTE 0.04 0.00 - 0.10 K/uL 11/11/2019 6:12 AM CDT [facility] Blood Collection / Unknown 11/11/2019 5:02 AM CDT 11/11/2019 5:50 AM CDT us Cristiane Minor NP HEMATOLOGY ORDERABLES Final Res ult [facility] [address] [place] [address] documented in this encounter Visit Diagnoses Not on filedocumented in this encounter
--- OUTSIDE RECORDS SUMMARY | 2025-04-23 11:18 | XMS_ITS | Encounter Summary ---
Author Organization [facility] Address [address] [place] [address] Care Team Providers Care Avionics Test Technician Name Role Phone Unavailable Primary Care Provider Unavailabl e Encounter Details Date Type Department Care Team (Late st Contact Info) Description 11/10/2019 Lab Requisition [facility] Laboratory [facility] [address] [place] [address] [place] [address] Cristiane Minor NP [address] [place] [address] Social History Tobacco Use Types Packs/Day Years Used Date Smoking Tobacco: Never Assessed Comments Unknown Sex and Gender Information Value Date Recorded Sex Assigned at Not on file 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 Blood (Peripheral) Collection / Unknown 11/10/2019 11:55 AM CDT 11/10/2019 12:18 PM CDT us Cristiane Minor NP MICROBIOLOGY - GENERAL ORDERABL ES Final Result [facility] [employer] [facility] [address] [place] [address] documented in this encounter Visit Diagnoses Not on filedocumented in this encounter
--- OUTSIDE RECORDS SUMMARY | 2025-04-23 11:18 | XMS_ITS | Encounter Summary ---
Author Organization [facility] Address [address] [place] [address] Care Team Providers Care Sales Service Supervisor Name Role Phone Unavailable Primary Care Provider Unavailabl e Encounter Details Date Type Department Care Team (Latest Contact Info) Description 02/17/2000 Outpatient Historical [facility] Family Medicine [place] [id number] [phone] Venecia March, DO [address] [place] [address] Esophageal reflux (Primary Dx); Unspecified essential hypertension; Unspecified hemorrhoids without mention of complication Social History Tobacco Use Types Packs/Day Years Used Date Smoking Tobacco: Never Assessed Comments Unknown Sex and Gender Information Value Date Recorded Sex Assigned at Not on file Legal 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
--- OUTSIDE RECORDS SUMMARY | 2025-04-23 11:18 | XMS_ITS | Clinical Summary ---
Author Organization [facility] Address [address] Hernandez: Epic Prelude ADT [place] [address] Care Team Providers Care Supervisor Customer Records Division Name Role Phone Unavailable Primary Care Provider Unavailabl e Social History Tobacco Use Types Packs/Day Years Used Date Smoking Tobacco: Never Assessed Comments Unknown Sex and Gender Information Value Date Recorded Sex Assigned at Not on file Legal Sex Female 3:20 AM CASE INVESTIGATOR Gender Identity Not on file Sexual Orientation [...]
--- OUTSIDE RECORDS SUMMARY | 2025-04-23 11:18 | XMS_ITS | Encounter Summary ---
Author Organization [facility] Address [address] [place] [address] Care Team Providers Care Picking Crew Supervisor Name Role Phone Unavailable Primary Care Provider Unavailabl e Encounter Details Date Type Department Care Team (Latest Contact Info) Description 03/07/1998 Outpatient Historical [facility] [address] [place] [address] Mehnaz Mays MD [address] [place], [place] [phone] Goiter, unspecified (Primary Dx) Social History Tobacco Use Types Packs/Day Years Used Date Smoking Tobacco: Never Assessed Comments Unknown Sex and Gender Information Value Date Recorded Sex Assigned at Not on file Legal Sex Female 3:20 AM TRANSMISSION REPAIRER Gender Identity Not on file Sexual Orientation Not on file documented as of this encounter Plan of Treatment Not on file documented as of this encounter Visit Diagnoses Diagnosis Goiter, unspecified- Primary documented in this encounter
--- OUTSIDE RECORDS SUMMARY | 2025-04-23 11:18 | XMS_ITS | Encounter Summary ---
Author Organization [employer] [facility] Address [address] [place] [address] Care Team Providers Care Manager Review Name Role Phone Unavailable Primary Care Provider Unavailabl e Encounter Details Date Type Department Care Team (Late st Contact Info) Description 11/14/2019 Lab Requisition [facility] Laboratory Services [address] [place] [address] [place] [phone] [place] [address] [place] [address] Social History Tobacco Use Types Packs/Day Years Used Date Smoking Tobacco: Never Assessed Comments Unknown Sex and Gender Information Value Date Recorded Sex Assigned at Not on file Legal 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 Female 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 Gender Identity Not on file Sexual Orientation [...] - 2.4 mg/dL 11/14/2019 6:46 AM CDT [facility] [employer] [facility] Blood Collection / Unknown 11/14/2019 4:40 AM CDT 11/14/2019 5:56 AM CDT us Elio Luevano MD CHEMISTRY ORDERABLES Final Resu lt [facility] [address] [place] [address] * (ABNORMAL) COMPREHENSIVE METABOLIC PANEL (11/14/2019 4:40 AM CDT) SODIUM 138 136 - 145 mmol/L 11/14/2019 6:46 AM CDT [facility] POTASSIUM 3.6 3.5 - 5.1 mmol/L 11/14/2019 6:46 AM CDT [facility] CHLORIDE 99 98 - 107 mmol/L 11/14/2019 6:46 AM CDT [facility] CO2 29 22 - 29 mmol/L 11/14/2019 6:46 AM CDT [facility] CALCIUM 8.8 8.8 - 10.2 mg/dL 11/14/2019 6:46 AM CDT [facility] BUN 23 8 - 23 mg/dL 11/14/2019 6:46 AM CDT [facility] CREATININE 1.10(H) 0.51 - 0.95 mg/dL 11/14/2019 6:46 AM CDT [facility] Comment:The GFR result is no t clinically significant on patients <18 or >70 years of age. GLUCOSE 150(H) 74 - 99 mg/dL 11/14/2019 6:46 AM CDT [facility] TOTAL PROTEIN 6.3(L) 6.4 - 8.3 g/dL 11/14/2019 6:46 AM CDT [facility] ALBUMIN 3.1(L) 3.5 - 5.2 g/dL 11/14/2019 6:46 AM CDT [facility] BILIRUBIN TOTAL 0.3 0.2 - 1.0 mg/dL 11/14/2019 6:46 AM CDT [facility] ALKALINE PHOSPHATASE 157(H) 35 - 104 U/L 11/14/2019 6:46 AM CDT [facility] AST 34 10 - 35 U/L 11/14/2019 6:46 AM CDT [facility] ALT 27 <=35 U/L 11/14/2019 6:46 AM CDT [facility] GFR 49 mL/min/1. 73 sq meter 11/14/2019 6:46 AM CDT [facility] Comment: eGFR has not been validated [...] 73 sq meter 11/14/2019 6:46 AM CDT [facility] ANION GAP 10 9 - 20 mmol/L 11/14/2019 6:46 AM T [facility] Blood Collection / Unknown 11/14/2019 4:40 AM CDT 11/14/2019 5:56 AM CDT us Elio Luevano MD CHEMISTRY ORDERABLES Final Resu lt [facility] [address] [place] [address] * (ABNORMAL) CBC WITHOUT DIFFERENTIAL (11/14/2019 4:40 AM CDT) WBC 7.7 4.8 - 10.8 K/uL 11/14/2019 6:15 AM CDT [facility] RBC 2.63(L) 4.20 - 5.40 M/uL 11/14/2019 6:15 AM CDT [facility] HEMOGLOBIN 8.2(L) 12.0 - 16.0 g/dL 11/14/2019 6:15 AM CDT [facility] HEMATOCRIT 25.1(L) 36.0 - 46.0 % 11/14/2019 6:15 AM CDT [facility] MCV 95.4 84.0 - 103.0 fL 11/14/2019 6:15 AM CDT [facility] MCH 31.2 27.0 - 34.0 pg 11/14/2019 6:15 AM CDT [facility] MCHC 32.7 30.0 - 35.0 g/dL 11/14/2019 6:15 AM CDT [facility] PLATELETS 151 140 - 440 K/uL 11/14/2019 6:15 AM CDT [facility] MPV 11.0 8.9 - 12.8 fL 11/14/2019 6:15 AM T [facility] RDW 14.7(H) 11.0 - 14.5 % 11/14/2019 6:15 AM CDT [facility] RDW-STDEV 50.9 37.0 - 54.0 fL 11/14/2019 6:15 AM T [facility] Blood Collection / Unknown 11/14/2019 4:40 AM CDT 11/14/2019 5:56 AM CDT us Elio Luevano MD HEMATOLOGY ORDERABLES Final Res ult [facility] [address] [place] [address] documented in this encounter Visit Diagnoses Not on filedocumented in this encounter
--- OUTSIDE RECORDS SUMMARY | 2025-04-23 11:18 | XMS_ITS | Encounter Summary ---
Author Organization [facility] Address [address] [place] [address] Care Team Providers Care Ticket Sales Agent Name Role Phone Unavailable Primary Care Provider Unavailabl e Encounter Details Date Type Department Care Team (Latest Contact Info) Description 04/29/1999 Outpatient Historical [facility] Family Medicine [place] [address] [phone] Venecia March, DO [address] [place] [address] Acute sinusitis, unspecified (Primary Dx); Acute bronchitis Social History Tobacco Use Types Packs/Day Years Used Date Smoking Tobacco: Never Assessed Comments Unknown Sex and Gender Information Value Date Recorded Sex Assigned at Not on file Legal 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
--- OUTSIDE RECORDS SUMMARY | 2025-04-23 11:18 | XMS_ITS | Encounter Summary ---
Author Organization [facility] Address [address] [place] [address] Care Team Providers Care Vice President Supply Chain Name Role Phone Unavailable Primary Care Provider Unavailabl e Encounter Details Date Type Department Care Team (Late st Contact Info) Description 11/09/2019 Lab Requisition [facility] Laboratory Services [address] [place] [address] [place] [address] Cristiane Minor NP [address] [place] [address] Social History Tobacco Use Types Packs/Day Years Used Date Smoking Tobacco: Never Assessed Comments Unknown Sex and Gender Information Value Date Recorded Sex Assigned at Not on file Legal Sex Female 3:20 AM POLYMERIZATION HELPER Gender Identity Not on file Sexual [...] - 145 mmol/L 11/09/2019 6:27 AM CDT [facility] POTASSIUM 4.2 3.5 - 5.1 mmol/L 11/09/2019 6:27 AM CDT [facility] CHLORIDE 101 98 - 107 mmol/L 11/09/2019 6:27 AM CDT [facility] CO2 29 22 - 29 mmol/L 11/09/2019 6:27 AM CDT [facility] CALCIUM 9.0 8.8 - 10.2 mg/dL 11/09/2019 6:27 AM CDT [facility] BUN 28(H) 8 - 23 mg/dL 11/09/2019 6:27 AM [facility] CREATININE 0.90 0.51 - 0.95 mg/dL 11/09/2019 6:27 AM T [facility] Comment:The GFR result is no t clinically significant on patients <18 or >70 years of age. GLUCOSE 156(H) 74 - 99 mg/dL 11/09/2019 6:27 AM T [facility] GFR >60 mL/min/1.7 3 sq meter 11/09/2019 6:27 AM T [facility] Comment: eGFR has not been validated for [...] 3 sq meter 11/09/2019 6:27 AM CDT [facility] ANION GAP 11 9 - 20 mmol/L 11/09/2019 6:27 AM T [facility] Blood Collection / Unknown 11/09/2019 4:15 AM CDT 11/09/2019 5:58 AM CDT us Cristiane Minor NP CHEMISTRY ORDERABLES Final Resu lt [facility] [address] [place] [address] documented in this encounter Visit Diagnoses Not on filedocumented in this encounter
--- OUTSIDE RECORDS SUMMARY | 2025-04-23 11:18 | XMS_ITS | Encounter Summary ---
Author Organization [facility] Address [address] [place] [address] Care Team Providers Care Singing Telegram Performer Name Role Phone Unavailable Primary Care Provider Unavailabl e Encounter Details Date Type Department Care Team (Late st Contact Info) Description 11/19/2019 Lab Requisition [facility] Laboratory Services [address] [place] [address] [place] [phone] [place] [address] [place] [address] Social History Tobacco Use Types Packs/Day Years Used Date Smoking Tobacco: Never Assessed Comments Unknown Sex and Gender Information Value Date Recorded Sex Assigned at Not on file Legal Sex Female 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 RBC 2.94(L) 4.20 - 5.40 M/uL 11/19/2019 10:21 AM CDT [facility] HEMOGLOBIN 8.9(L) 12.0 - 16.0 g/dL 11/19/2019 10:21 AM CDT [facility] HEMATOCRIT 28.2(L) 36.0 - 46.0 % 11/19/2019 10:21 AM [facility] [employer] [facility] MCV 95.9 84.0 - 103.0 fL 11/19/2019 10:21 AM [facility] [employer] [facility] MCH 30.3 27.0 - 34.0 pg 11/19/2019 10:21 AM [facility] [employer] [facility] MCHC 31.6 30.0 - 35.0 g/dL 11/19/2019 10:21 AM [facility] [employer] [facility] RDW 15.9(H) 11.0 - 14.5 % 11/19/2019 10:21 AM [facility] [employer] [facility] RDW-STDEV 53.5 37.0 - 54.0 fL 11/19/2019 10:21 AM [facility] [employer] [facility] PLATELETS 138(L) 140 - 440 K/uL 11/19/2019 10:21 AM [facility] [employer] [facility] MPV 10.7 8.9 - 12.8 fL 11/19/2019 10:21 AM [facility] [employer] [facility] NEUTROPHILS 61 42 - 75 % 11/19/2019 10:21 AM [facility] [employer] [facility] LYMPHOCYTES 23(L) 24 - 44 % 11/19/2019 10:21 AM [facility] [employer] [facility] MONOCYTES 10 2 - 10 % 11/19/2019 10:21 AM [facility] [employer] [facility] EOSINOPHILS 4 0 - 7 % 11/19/2019 10:21 AM [facility] [employer] [facility] BASOPHILS 1 0 - 1 % 11/19/2019 10:21 AM [facility] [employer] [facility] IMMATURE GRANULOCYTES 1 0 - 2 % 11/19/2019 10:21 AM [facility] [employer] [facility] NEUTROPHIL ABSOLUTE 5.62 2.00 - 8.00 K/uL 11/19/2019 10:21 AM [facility] [employer] [facility] LYMPHOCYTE ABSOLUTE 2.16 1.20 - 4.00 K/uL 11/19/2019 10:21 AM [facility] [employer] [facility] MONOCYTE ABSOLUTE 0.95(H) 0.10 - 0.60 K/uL 11/19/2019 10:21 AM [facility] [employer] [facility] EOSINOPHIL ABSOLUTE 0.37 0.00 - 0.70 K/uL 11/19/2019 10:21 AM CDT [facility] BASOPHILS ABSOLUTE 0.07 0.00 - 0.20 K/uL 11/19/2019 10:21 AM CDT [facility] IMMATURE GRANULOCYTES ABSOLUTE 0.06 0.00 - 0.10 K/uL 11/19/2019 10:21 AM CDT [facility] Blood Collection / Unknown 11/19/2019 9:00 AM CDT 11/19/2019 9:24 AM CDT Narrative [facility] - 11/19/2019 10:21 AM CDT Fibrin on slide - platelet count may be higher than reported us Elio Luevano MD HEMATOLOGY ORDERABLES Final Res ult [facility] [address] [place] [address] documented in this encounter Visit Diagnoses Not on filedocumented in this encounter
--- OUTSIDE RECORDS SUMMARY | 2025-04-23 11:18 | XMS_ITS | Encounter Summary ---
Author Organization [facility] Address [address] [place] [address] Care Team Providers Care Anesthesiologist Physician Name Role Phone Unavailable Primary Care Provider Unavailabl e Encounter Details Date Type Department Care Team (Latest Contact Info) Description 06/14/1998 Outpatient Historical [facility] Family Medicine [place] [address] [phone] Pavel Montoya MD NO ADDRESS ON FILE Acute bronchitis (Primary Dx) Social History Tobacco Use Types Packs/Day Years Used Date Smoking Tobacco: Never Assessed Comments Unknown Sex and Gender Information Value Date Recorded Sex Assigned at Not on file Legal Sex Female 3:20 AM 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
--- OUTSIDE RECORDS SUMMARY | 2025-04-23 11:18 | XMS_ITS | Encounter Summary ---
Author Organization [facility] Address [address] [place] [address] Care Team Providers Care Clinical Systems Educator Name Role Phone Unavailable Primary Care Provider Unavailabl e Encounter Details Date Type Department Care Team (Late st Contact Info) Description 11/19/2019 Lab Requisition [facility] General Laboratory Services [address] [place] [address] [place] [phone] Kathrine Toney, MACHINE MAINTENANCE REPAIRER NO ADDRESS ON FILE Social History Tobacco Use Types Packs/Day Years Used Date Smoking Tobacco: Never Assessed Comments Unknown Sex and Gender Information Value Date Recorded Sex Assigned at Not on file Legal Sex Female 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
--- OUTSIDE RECORDS SUMMARY | 2025-04-23 11:18 | XMS_ITS | Encounter Summary ---
Author Organization [employer] [facility] Address [address] [place] [address] Care Team Providers Care Pairer Substandard Name Role Phone Unavailable Primary Care Provider Unavailabl e Encounter Details Date Type Department Care Team (Late st Contact Info) Description 11/17/2019 Lab Requisition [facility] Laboratory Services [address] [place] [address] [facility] [place] [phone] [place] [address] [place] [address] Social History Tobacco Use Types Packs/Day Years Used Date Smoking Tobacco: Never Assessed Comments Unknown Sex and Gender Information Value Date Recorded Sex Assigned at Not on file Legal Sex Female 3:20 AM RECORD CLERK Gender Identity Not on file Sexual [...] - 2.4 mg/dL 11/17/2019 6:37 AM CDT [facility] [employer] [facility] Blood Collection / Unknown 11/17/2019 4:53 AM CDT 11/17/2019 6:03 AM CDT us Elio Luevano MD CHEMISTRY ORDERABLES Final Resu lt [facility] [address] [place] [address] * (ABNORMAL) COMPREHENSIVE METABOLIC PANEL (11/17/2019 4:53 AM CDT) SODIUM 140 136 - 145 mmol/L 11/17/2019 6:37 AM CDT [facility] POTASSIUM 4.0 3.5 - 5.1 mmol/L 11/17/2019 6:37 AM CDT [facility] CHLORIDE 104 98 - 107 mmol/L 11/17/2019 6:37 AM CDT [facility] CO2 23 22 - 29 mmol/L 11/17/2019 6:37 AM CDT [facility] CALCIUM 8.8 8.8 - 10.2 mg/dL 11/17/2019 6:37 AM T [facility] [employer] [facility] BUN 22 8 - 23 mg/dL 11/17/2019 6:37 AM T [facility] CREATININE 1.06(H) 0.51 - 0.95 mg/dL 11/17/2019 6:37 AM T [facility] Comment:The GFR result is no t clinically significant on patients <18 or >70 years of age. GLUCOSE 114(H) 74 - 99 mg/dL 11/17/2019 6:37 AM CDT [facility] TOTAL PROTEIN 7.0 6.4 - 8.3 g/dL 11/17/2019 6:37 AM T [facility] ALBUMIN 3.4(L) 3.5 - 5.2 g/dL 11/17/2019 6:37 AM CDT [facility] [employer] [facility] BILIRUBIN TOTAL 0.4 0.2 - 1.0 mg/dL 11/17/2019 6:37 AM CDT [facility] ALKALINE PHOSPHATASE 136(H) 35 - 104 U/L 11/17/2019 6:37 AM T [facility] [employer] [facility] AST 33 10 - 35 U/L 11/17/2019 6:37 AM CDT [facility] ALT 26 <=35 U/L 11/17/2019 6:37 AM CDT [facility] GFR 51 mL/min/1. 73 sq meter 11/17/2019 6:37 AM CDT [facility] Comment: eGFR has not been validated [...] 73 sq meter 11/17/2019 6:37 AM CDT [facility] ANION GAP 13 9 - 20 mmol/L 11/17/2019 6:37 AM T [facility] Blood Collection / Unknown 11/17/2019 4:53 AM CDT 11/17/2019 6:03 AM CDT us Elio Luevano MD CHEMISTRY ORDERABLES Final Resu lt [facility] [address] [place] [address] * (ABNORMAL) CBC WITHOUT DIFFERENTIAL (11/17/2019 4:53 AM CDT) WBC 11.5(H) 4.8 - 10.8 K/uL 11/17/2019 6:34 AM CDT [facility] RBC 2.97(L) 4.20 - 5.40 M/uL 11/17/2019 6:34 AM CDT [facility] HEMOGLOBIN 9.1(L) 12.0 - 16.0 g/dL 11/17/2019 6:34 AM CDT [facility] HEMATOCRIT 28.8(L) 36.0 - 46.0 % 11/17/2019 6:34 AM CDT [facility] MCV 97.0 84.0 - 103.0 fL 11/17/2019 6:34 AM CDT [facility] MCH 30.6 27.0 - 34.0 pg 11/17/2019 6:34 AM CDT [facility] MCHC 31.6 30.0 - 35.0 g/dL 11/17/2019 6:34 AM CDT [facility] PLATELETS 191 140 - 440 K/uL 11/17/2019 6:34 AM CDT [facility] MPV 10.7 8.9 - 12.8 fL 11/17/2019 6:34 AM CDT [facility] RDW 15.7(H) 11.0 - 14.5 % 11/17/2019 6:34 AM CDT [facility] RDW-STDEV 53.2 37.0 - 54.0 fL 11/17/2019 6:34 AM T [facility] Blood Collection / Unknown 11/17/2019 4:53 AM CDT 11/17/2019 6:03 AM CDT us Elio Luevano MD HEMATOLOGY ORDERABLES Final Res ult [facility] [address] [place] [address] documented in this encounter Visit Diagnoses Not on filedocumented in this encounter
--- OUTSIDE RECORDS SUMMARY | 2025-04-23 11:18 | XMS_ITS | Encounter Summary ---
Author Organization [facility] Address [address] 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
--- OUTSIDE RECORDS SUMMARY | 2025-04-23 11:18 | XMS_ITS | Encounter Summary ---
Author Organization [facility] Address [address] [place] [address] Care Team Providers Care Coordinating Producer Name Role Phone Unavailable Primary Care Provider Unavailabl e Encounter Details Date Type Department Care Team (Late st Contact Info) Description 11/10/2019 Lab Requisition [facility] Laboratory Services [address] [place] [address] 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 Gender Identity Not on file Sexual [...] - 2.4 mg/dL 11/10/2019 6:56 AM CDT [facility] [employer] [facility] Blood Collection / Unknown 11/10/2019 4:04 AM CDT 11/10/2019 6:23 AM CDT us Elio Luevano MD CHEMISTRY ORDERABLES Final Resu lt [facility] [address] [place] [address] * (ABNORMAL) COMPREHENSIVE METABOLIC PANEL (11/10/2019 4:04 AM CDT) SODIUM 138 136 - 145 mmol/L 11/10/2019 6:56 AM CDT [facility] POTASSIUM 3.8 3.5 - 5.1 mmol/L 11/10/2019 6:56 AM CDT [facility] CHLORIDE 100 98 - 107 mmol/L 11/10/2019 6:56 AM CDT [facility] CO2 26 22 - 29 mmol/L 11/10/2019 6:56 AM CDT [facility] CALCIUM 9.1 8.8 - 10.2 mg/dL 11/10/2019 6:56 AM T [facility] BUN 28(H) 8 - 23 mg/dL 11/10/2019 6:56 AM T [facility] CREATININE 0.89 0.51 - 0.95 mg/dL 11/10/2019 6:56 AM T [facility] Comment:The GFR result is no t clinically significant on patients <18 or >70 years of age. GLUCOSE 146(H) 74 - 99 mg/dL 11/10/2019 6:56 AM T [facility] TOTAL PROTEIN 6.8 6.4 - 8.3 g/dL 11/10/2019 6:56 AM T [facility] ALBUMIN 3.2(L) 3.5 - 5.2 g/dL 11/10/2019 6:56 AM CDT [facility] BILIRUBIN TOTAL 0.4 0.2 - 1.0 mg/dL 11/10/2019 6:56 AM CDT [facility] ALKALINE PHOSPHATASE 148(H) 35 - 104 U/L 11/10/2019 6:56 AM T [facility] [employer] [facility] AST 29 10 - 35 U/L 11/10/2019 6:56 AM CDT [facility] ALT 17 <=35 U/L 11/10/2019 6:56 AM CDT [facility] GFR >60 mL/min/1.7 3 sq meter 11/10/2019 6:56 AM CDT [facility] Comment: eGFR has not been [...] 3 sq meter 11/10/2019 6:56 AM CDT [facility] ANION GAP 12 9 - 20 mmol/L 11/10/2019 6:56 AM T [facility] Blood Collection / Unknown 11/10/2019 4:04 AM CDT 11/10/2019 6:23 AM CDT us Elio Luevano MD CHEMISTRY ORDERABLES Final Resu lt Performing Organization Address City/State/[facility] Co de Phone Number [facility] [address] [place] [address] * (ABNORMAL) CBC WITHOUT DIFFERENTIAL (11/10/2019 4:04 AM CDT) WBC 15.3(H) 4.8 - 10.8 K/uL 11/10/2019 6:32 AM CDT [facility] RBC 3.15(L) 4.20 - 5.40 M/uL 11/10/2019 6:32 AM CDT [facility] HEMOGLOBIN 9.2(L) 12.0 - 16.0 g/dL 11/10/2019 6:32 AM CDT [facility] HEMATOCRIT 29.1(L) 36.0 - 46.0 % 11/10/2019 6:32 AM CDT [facility] MCV 92.4 84.0 - 103.0 fL 11/10/2019 6:32 AM CDT [facility] MCH 29.2 27.0 - 34.0 pg 11/10/2019 6:32 AM CDT [facility] MCHC 31.6 30.0 - 35.0 g/dL 11/10/2019 6:32 AM CDT [facility] PLATELETS 191 140 - 440 K/uL 11/10/2019 6:32 AM CDT [facility] MPV 10.7 8.9 - 12.8 fL 11/10/2019 6:32 AM CDT [facility] RDW 14.4 11.0 - 14.5 % 11/10/2019 6:32 AM CDT [facility] RDW-STDEV 47.8 37.0 - 54.0 fL 11/10/2019 6:32 AM T [facility] Blood Collection / Unknown 11/10/2019 4:04 AM CDT 11/10/2019 6:23 AM CDT us Elio Luevano MD HEMATOLOGY ORDERABLES Final Res ult [facility] [address] [place] [address] documented in this encounter Visit Diagnoses Not on filedocumented in this encounter
--- OUTSIDE RECORDS SUMMARY | 2025-04-23 11:18 | XMS_ITS | Encounter Summary ---
Author Organization [facility] Address [address] [place] [address] Care Team Providers Care Sharepoint Designer Developer Name Role Phone Unavailable Primary Care Provider Unavailabl e Encounter Details Date Type Department Care Team (Latest Contact Info) Description 12/03/2001 Outpatient Historical [facility] Augustin Can MD ESOPHAGEAL REFLUX (Primary Dx) Social History Tobacco Use Types Packs/Day Years Used Date Smoking Tobacco: Never Assessed Comments Unknown Sex and Gender Information Value Date Recorded Sex Assigned at Not on file Legal Sex Female 3: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
--- OUTSIDE RECORDS SUMMARY | 2025-04-23 11:18 | XMS_ITS | Clinical Summary ---
Author Organization [facility] Address [address] [place] [address] Phone Care Team Providers Care Sales Stock Associate Name Role Phone Mandeep Madrigal MD Primary Care Provider [phone] Allergies No known active allergies Medications albuterol (PROVENTIL,VENTOL IN) 2.5 mg /3 mL (0.083 %) Solution for Nebulization Take 1 mL by inhalation every 6 hours as needed for Shortness of Breath. Active fluticasone propionate (FLONASE) 50 mcg/spray [place], Suspension nasal inhaler Administer 2 Sprays in [...] alcohol) LAST DRINK WAS 2 YEARS AGO [facility] [employer] Answer Date Recorded In the past 12 months has Kraken, gas, oil, or water [employer] threatened to shut off services in your [...] often do you attend chur ch or baptist services? Patient declined 08/24/2023 Do you belong to any clubs o r organizations such as worship groups, unions, fraternal or athletic groups, or [...] on file Legal Sex Female 9:12 AM SHAFT TENDER Gender Identity Not on file Sexual [...] (#1) 2024 Insurance [employer] DUAL COMPLETE [facility] [id number] [place]ICA[place] Advance Directives For more information, please contact: [phone] Documents on File Type Date Recorded Patient Instrument Shop Supervisor Expl anation Advance Directive POA 08/31/2023 3:50 PM Ad coats Directive POA Advance Directive POA 08/24/2023 7:00 PM * Full Code (Latest Code Status on File) Date Activated Date Inactivated Comments 09/05/2023 2:42 AM 09/09/2023 4:05 PM * Default Full Code - Needs Discussion Date Activated Date Inactivated Comments 08/23/2023 3:19 PM 08/26/2023 7:42 PM Care Teams Sales Stock Associate Relationship Specialty Start Date End Date Mandeep Madrigal MD [address] [address] PCP - General Family Practice 09/05/23
--- OUTSIDE RECORDS SUMMARY | 2025-04-23 11:18 | XMS_ITS | Encounter Summary ---
Author Organization [facility] Address [address] [place] [address] Care Team Providers Care Straight Cutter Machine Name Role Phone Unavailable Primary Care Provider Unavailabl e Encounter Details Date Type Department Care Team (Late st Contact Info) Description 11/03/2019 Lab Requisition [facility] Laboratory Services [address] [place] [phone] [place] [address] [place] [address] Social History Tobacco Use Types Packs/Day Years Used Date Smoking Tobacco: Never Assessed Comments Unknown Sex and Gender Information Value Date Recorded Sex Assigned at Not on file Legal Sex Female 3:20 AM ANDROID SOFTWARE ENGINEER Gender Identity Not on file Sexual [...] - 2.4 mg/dL 11/03/2019 7:23 AM CDT [facility] [employer] [facility] Blood Collection / Unknown 11/03/2019 3:20 AM CDT 11/03/2019 7:05 AM CDT us Elio Luevano MD CHEMISTRY ORDERABLES Final Resu lt [facility] [address] [place] [address] * (ABNORMAL) COMPREHENSIVE METABOLIC PANEL (11/03/2019 3:20 AM CDT) SODIUM 146(H) 136 - 145 mmol/L 11/03/2019 7:23 AM CDT [facility] POTASSIUM 3.7 3.5 - 5.1 mmol/L 11/03/2019 7:23 AM T [facility] CHLORIDE 107 98 - 107 mmol/L 11/03/2019 7:23 AM T [facility] CO2 31(H) 22 - 29 mmol/L 11/03/2019 7:23 AM T [facility] CALCIUM 8.4(L) 8.8 - 10.2 mg/dL 11/03/2019 7:23 AM T [facility] BUN 32(H) 8 - 23 mg/dL 11/03/2019 7:23 AM T [facility] CREATININE 1.04(H) 0.51 - 0.95 mg/dL 11/03/2019 7:23 AM T [facility] Comment:The GFR result is no t clinically significant on patients <18 or >70 years of age. GLUCOSE 144(H) 74 - 99 mg/dL 11/03/2019 7:23 AM T [facility] TOTAL PROTEIN 6.1(L) 6.4 - 8.3 g/dL 11/03/2019 7:23 AM T [facility] ALBUMIN 3.0(L) 3.5 - 5.2 g/dL 11/03/2019 7:23 AM T [facility] BILIRUBIN TOTAL 0.6 0.2 - 1.0 mg/dL 11/03/2019 7:23 AM T [facility] ALKALINE PHOSPHATASE 133(H) 35 - 104 U/L 11/03/2019 7:23 AM T [facility] AST 32 10 - 35 U/L 11/03/2019 7:23 AM T [facility] ALT 19 <=35 U/L 11/03/2019 7:23 AM CDT [facility] GFR 52 mL/min/1. 73 sq meter 11/03/2019 7:23 AM T [facility] Comment: eGFR has not [...] 73 sq meter 11/03/2019 7:23 AM T [facility] ANION GAP 8(L) 9 - 20 mmol/L 11/03/2019 7:23 AM T [facility] Blood Collection / Unknown 11/03/2019 3:20 AM CDT 11/03/2019 7:05 AM CDT us Elio Luevano MD CHEMISTRY ORDERABLES Final Resu lt [facility] [address] [place] [address] * (ABNORMAL) CBC WITHOUT DIFFERENTIAL (11/03/2019 3:20 AM CDT) WBC 11.8(H) 4.8 - 10.8 K/uL 11/03/2019 7:12 AM T [facility] RBC 3.03(L) 4.20 - 5.40 M/uL 11/03/2019 7:12 AM T [facility] HEMOGLOBIN 9.0(L) 12.0 - 16.0 g/dL 11/03/2019 7:12 AM CDT [facility] HEMATOCRIT 29.0(L) 36.0 - 46.0 % 11/03/2019 7:12 AM CDT [facility] MCV 95.7 84.0 - 103.0 fL 11/03/2019 7:12 AM CDT [facility] MCH 29.7 27.0 - 34.0 pg 11/03/2019 7:12 AM CDT [facility] MCHC 31.0 30.0 - 35.0 g/dL 11/03/2019 7:12 AM CDT [facility] PLATELETS 272 140 - 440 K/uL 11/03/2019 7:12 AM CDT [facility] MPV 10.1 8.9 - 12.8 fL 11/03/2019 7:12 AM CDT [facility] RDW 13.8 11.0 - 14.5 % 11/03/2019 7:12 AM T [facility] RDW-STDEV 47.9 37.0 - 54.0 fL 11/03/2019 7:12 AM T [facility] Blood Collection / Unknown 11/03/2019 3:20 AM CDT 11/03/2019 7:05 AM CDT us Elio Luevano MD HEMATOLOGY ORDERABLES Final Res ult [facility] [address] [place] [address] documented in this encounter Visit Diagnoses Not on filedocumented in this encounter
--- OUTSIDE RECORDS SUMMARY | 2025-04-23 11:18 | XMS_ITS | Encounter Summary ---
Author Organization [facility] Address [address] [place] [address] Care Team Providers Care Ski Technician Name Role Phone Unavailable Primary Care Provider Unavailabl e Encounter Details Date Type Department Care Team (Latest Contact Info) Description 10/25/1998 Outpatient Historical [facility] ([facility]3] Family Medicine [place] [address] [phone] Pavel Montoya MD NO ADDRESS ON FILE Cellulitis and abscess of unspecified site (Primary Dx); Enlargement of lymph nodes; Other symptoms referable to ankle and foot joint Social History Tobacco Use Types Packs/Day Years Used Date Smoking Tobacco: Never Assessed Comments Unknown Sex and Gender Information Value Date Recorded Sex Assigned at Not on file Legal Sex Female 3:20 AM PSYCHIATRIC THERAPIST Gender Identity Not on file Sexual Orientation Not on file documented as of this encounter Plan of Treatment Not on file documented as of this encounter Visit Diagnoses Diagnosis Cellulitis and abscess of unspecified site- Primary Enlargement of lymph nodes Other symptoms referable to ankle and foot joint documented in this encounter
--- OUTSIDE RECORDS SUMMARY | 2025-04-23 11:18 | XMS_ITS | Encounter Summary ---
Author Organization [facility] Address [address] [place] [address] Care Team Providers Care Nanoelectronics Engineer Name Role Phone Unavailable Primary Care Provider Unavailabl e Encounter Details Date Type Department Care Team (Latest Contact Info) Description 02/06/1998 Outpatient Historical [facility] Family Medicine [place] [address] [phone] Pavel Montoya MD NO ADDRESS ON FILE Other disorders of Eustachian tube(381.89) (Primary Dx) Social History Tobacco Use Types Packs/Day Years Used Date Smoking Tobacco: Never Assessed Comments Unknown Sex and Gender Information Value Date Recorded Sex Assigned at Not on file Legal Sex Female 3:20 AM CERTIFIED ACTIVITIES DIRECTOR Gender Identity Not on file Sexual Orientation Not on file documented as of this encounter Plan of Treatment Not on file documented as of this encounter Visit Diagnoses Diagnosis Other disorders of Eustachian tube(381.89)- Primary Other disorders of Eustachian tube documented in this encounter
--- OUTSIDE RECORDS SUMMARY | 2025-04-23 11:18 | XMS_ITS | Encounter Summary ---
Author Organization [facility] Address [address] [place] [address] Care Team Providers Care Strategic Buyer Name Role Phone Unavailable Primary Care Provider Unavailabl e Encounter Details Date Type Department Care Team (Latest Contact Info) Description 12/04/1999 Outpatient Historical [facility] Family Medicine [place] [id number] [phone] Venecia March, DO [address] [place] [address] Abdominal pain, epigastric (Primary Dx); Unspecified hemorrhoids without mention of complication Social History Tobacco Use Types Packs/Day Years Used Date Smoking Tobacco: Never Assessed Comments Unknown Sex and Gender Information Value Date Recorded Sex Assigned at Not on file Legal Sex Female 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
--- OUTSIDE RECORDS SUMMARY | 2025-04-23 11:18 | XMS_ITS | Encounter Summary ---
Author Organization [facility] Address [address] [place] [address] Care Team Providers Care Chemical Mixer Name Role Phone Unavailable Primary Care Provider Unavailabl e Encounter Details Date Type Department Care Team (Late st Contact Info) Description 11/11/2019 Lab Requisition [facility] Laboratory Services [address] [place] [phone] Kathrine Toney FNP NO ADDRESS ON FILE Social History Tobacco Use Types Packs/Day Years Used Date Smoking Tobacco: Never Assessed Comments Unknown Sex and Gender Information Value Date Recorded Sex Assigned at Not on file Legal Sex Female 3:20 AM GROUP SOCIAL WORKER Gender Identity Not on file Sexual [...] - 20.0 ug/mL 11/12/2019 12:01 AM CDT [facility] Blood BLOOD SPECIMEN / Unknown Venipuncture / Unknown 11/11/2019 8:30 PM CDT 11/11/2019 11:24 PM CDT Kathrine FERNANDEZ CHEMISTRY ORDERABLES Final Result [facility] [address] [place], [place] [id number] documented in this encounter Visit Diagnoses Not on filedocumented in this encounter
--- NOTE | 2025-04-23 11:24 | XRR_ITS ---
PROCEDURE INFORMATION: Exam: XR Chest Exam date and time: 04/23/2025 12:16 PM Age: 79 years old Clinical indication: Shortness of breath; Prior Surgery; Surgery Date: 6+ months; Surgery Type: heart; Additional Info: SOB TECHNIQUE: Imaging protocol: Radiologic exam of the chest. Views: 1 view. COMPARISON: 1. CR XR chest 1V portable [id number] 10/10/2024 9:55 AM 2. CR XR chest 1V portable [id number] 10/07/2024 6:41 PM FINDINGS: Limitations: Extensive external artifacts over the chest, abdomen and axillary regions. Lungs: Lungs are mildly hyperaerated. Pulmonary vascularity is normal. No suspicious pulmonary nodule/s. No focal consolidation is appreciated. Pleural spaces: No pleural effusion. No pneumothorax. Heart/Mediastinum: Mild cardiomegaly is noted. Vasculature: Moderate aortic arch atherosclerosis. Bones/joints: Wire sutures are present in the sternum. The spine demonstrates moderate degenerative changes at multiple levels. There is no acute fracture or dislocation. XR/XR chest 1V portable [id number] IMPRESSION: 1. No acute findings. Question COPD. 2. Mild cardiomegaly.
[2025-04-23 11:40] VITALS: BP 111/46; PULSE 91; RESP 20; TEMP 36.7; O2SAT 94; BMI 22.6
--- NOTE | 2025-04-23 11:45 | ECG_ITS ---
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 Record Clerk: : 1945 Requested By: Christina Armendariz Order Number: [id number] Reading MD: RODERICK BOLDEN Measurements Intervals [place] Rate: 95 P: 56 VT: 141 QRS: -47 QRSD: 130 T: 53 QT: 409 QTc: 516 Interpretive Statements SINUS RHYTHM WITH OCCASIONAL SUPRAVENTRICULAR PREMATURE COMPLEXES POSSIBLE LEFT ATRIAL ENLARGEMENT [-0.1mV P-WAVE IN V1/V2] RIGHT BUNDLE BRANCH BLOCK [120+ ms QRS DURATION, UPRIGHT V1, 40+ ms S IN I/aVL/V4/V5/V6] LEFT ANTERIOR FASCICULAR BLOCK [QRS AXIS <= -45, QR IN I, RS IN II] POSSIBLE LEFT VENTRICULAR HYPERTROPHY [VOLTAGE CRITERIA PLUS LAE OR QRS WIDENING] Compared to ECG 10/05/2024 21:19:38 Sinus tachycardia no longer present Ventricular premature complex(es) no longer present ST (T wave) deviation no longer present Myocardial infarct finding no longer present Electronically Signed On 04-23-2025 22:53:58 SHOP MECHANIC by RODERICK BOLDEN [email or web address] [id number]
--- NOTE | 2025-04-23 11:49 | W.ED.SOB ---
HPI - SOB/Dyspnea General: Chief Complaint: Shortness of Breath/Dyspnea Stated Complaint: sob; lethargy Time Seen by Provider: 04/23/25 11:42 Source: patient and EMS Mode of arrival: EMS Limitations: no limitations History of Present Illness: HPI Narrative: 79-year-old female has had a history of stroke in the past states that she has been having some increasing shortness of breath over the last 2 days along with generalized fatigue. She has had a mild cough she denies any chest pain denies any new focal weakness. Patient's not require any oxygen here she denies any vomiting or diarrhea Related Data Home Medications ?Medication ?Instructions ?Recorded ?Confirmed aspirin 81 mg tablet,delayed 81 mg PO QAM 08/27/23 04/06/25 release omeprazole 40 mg capsule,delayed 40 mg PO QAM 08/27/23 04/06/25 release peg 400-propylene glycol (PF) 0.4 1 drp ophthalmic (eye) QID PRN Dry 08/27/23 04/06/25 %-0.3 % eye drops in a dropperette Eyes (Systane (PF)) atorvastatin 80 mg tablet 80 mg PO QPM 09/16/23 04/06/25 B6 1.7 mg-folic 400 mcg-B12 2.4 1 cap PO DAILY 09/23/24 04/06/25 vmg-nzrsvw-oazigwigneve oral capsule (Neuriva Plus Brain Performance) ascorbic acid (vitamin C) 500 mg 500 mg PO DAILY 09/23/24 04/06/25 capsule cholecalciferol (vitamin D3) 50 50 mcg PO DAILY 09/23/24 04/06/25 mcg (2,000 unit) capsule deutetrabenazine 24 mg 24 mg PO DAILY 09/23/24 04/06/25 tablet,extended release 24 hr (Austedo XR) fnuogwoj-vyb-iuck 4 mg-folic acid 1 tab PO DAILY 09/23/24 04/06/25 200 mcg-vit K 25 mcg-lutein tablet (Centrum Minis Women 50 Plus) nervive Nerve Relief Supplement 1 tab PO DAILY 09/23/24 04/06/25 oxymetazoline 0.05 % nasal mist 2 spray intranasal Q12H PRN 09/23/24 04/06/25 (Afrin (oxymetazoline)) Allergy Symptoms vitamins-lipotropics tablet 1 tab PO DAILY 09/23/24 04/06/25 cranberry 500 mg capsule 500 mg PO TID 10/08/24 04/06/25 Previous Rx's ?Medication ?Instructions ?Recorded losartan 25 mg tablet 25 mg PO DAILY #100 tabs 09/26/24 metoprolol succinate 50 mg 50 mg PO QAM #90 tabs 11/28/24 tablet,extended release 24 hr ropinirole 2 mg tablet 2 mg PO BID #60 tabs 02/07/25 hydrocodone 7.5 mg-acetaminophen 1 tab PO Q6H PRN pain 30 days #120 03/07/25 325 mg tablet tabs deutetrabenazine 6 mg tablet 6 mg PO BID 90 days #180 tabs 03/14/25 (Austedo) deutetrabenazine 6 mg tablet 6 mg PO DAILY 14 days #14 tabs 03/14/25 (Austedo) gabapentin 100 mg capsule 200 mg (2 x 100 mg) PO TID 30 days 04/06/25 #180 caps Allergies Allergy/AdvReac Type Severity Reaction Status Date / Time linaclotide (From Linzess) Allergy Unknown Verified 04/17/25 16:43 Review of Systems Resp: Reports: dyspnea PFSH ED PFSH: Medical History (Updated 04/23/25 @ 14:05 by Christina Armendariz MD) Degeneration of intervertebral disc of lumbar region with discogenic back pain and lower extremity pain History of pericarditis Thrombocytopenic disorder DM II (diabetes mellitus, type II), controlled HTN (hypertension) Altered mental status Acute hypoxemic respiratory failure Pneumonia Multiple falls Generalized weakness At risk for aspiration Dysphagia Physical deconditioning Neurologic gait disorder Demyelinating disease of central nervous system Restrictive lung disease Postoperative atrial fibrillation Currently on amiodarone. 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 Orthostatic hypotension Tardive dyskinesia DNR (do not resuscitate) Hypercholesterolemia Chronic obstructive pulmonary disease, unspecified Labyrinthitis Backache Bipolar affective disorder Arthropathy, unspecified RLS (restless legs syndrome) Sleep apnea Peripheral vertigo Irritable bowel syndrome Aortic stenosis, severe Surgical History History of kyphoplasty L5 and S1 History of nasal surgery Status post aortic valve replacement with bioprosthetic valve History of abdominal hysterectomy H/O foot surgery H/O eye surgery H/O oral surgery Hx of cholecystectomy History of appendectomy Family History Other Hypertension Social History Smoking and tobacco/nicotine status: never used tobacco/nicotine Quit status (tobacco/nicotine): has quit using Year quit tobacco: 1979 Former quit date comment: 4-5 cigarettes per day X 6 months Second hand smoke exposure: No Alcohol intake: never Substance/Drug Use: never Additional social history: Patient states she used CBD Gummies to lower her blood pressure. She lives alone with her Jaclyn. Her sister Pearl Hinton is her next of kin. 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 Patient wants DNR status as discussed today with Markos Lopez MD on 10/07/2024 Caregiver/support person: Yes Lives independently: Yes Household members: none Housing: House Marital status: / Current occupational status: retired and disabled Pets and animals: Yes Pets & animals: dog(s) Do you think of yourself as: Straight/Heterosexual Current gender identity: Female Physical Exam Const: COMMON NORMALS: patient oriented x3 HENMT: COMMON NORMALS: normocephalic and atraumatic HEAD & SCALP: normocephalic and atraumatic Eye: COMMON NORMALS: Equal, round and reactive pupils present and EOMs intact bilaterally PUPIL: Yes Equal, round and reactive pupils present Neck/C-Spine: COMMON NORMALS: full ROM and supple Chest: COMMONS NORMALS: normal inspection of the chest and normal palpation of entire chest wall Resp: COMMON NORMALS: normal respiratory effort, No retractions, No use of accessory muscles and clear to auscultation bilaterally AUSCULTATION: clear to auscultation bilaterally Cardio: COMMON NORMALS: regular rate, regular rhythm and No murmurs present (Cardio) RATE: regular rate RHYTHM: regular rhythm GI: COMMON NORMALS: Normal to inspection, nondistended, normoactive bowel sounds present, Soft to palpation, non-tender and no masses PALPATION: Yes Soft to palpation Extremity: COMMON NORMALS: normal to inspection and full ROM Neuro: COMMON NORMALS: patient oriented x3, moves all extremities and no focal motor deficits Psych: COMMON NORMALS: mental status grossly normal, Normal thought process present and cooperative THOUGHT PROCESS: Normal thought process present Skin: COMMON NORMALS: no rashes or lesions noted and no wounds GENERAL SKIN EXAM: no rashes or lesions noted Course Vital Signs: Vital signs: Vital Signs Temperature 98.1 F 04/23/25 11:40 Pulse Rate 76 04/23/25 13:07 Respiratory Rate 20 H 04/23/25 13:07 Blood Pressure 134/77 04/23/25 13:07 Pulse Oximetry 92 04/23/25 13:07 Oxygen Delivery Me thod Nasal Cannula 04/23/25 13:07 Oxygen Flow Rate 3 04/23/25 13:07 MDM - SOB/Dyspnea Medical Decision Making 79-year-old female presents here with generalized weakness differential includes infection, anemia, CVA. Patient has no focal deficits here patient does have an elevated white count and acute cystitis. X-ray shows no signs of pneumonia. Lactate here is normal her vitals here been normal did give her sepsis fluid bolus got blood cultures started on cefepime for her UTI will admit at this time. EKG interpreted by me at 1145 normal sinus rhythm heart rate [address] elevation QRS 130 QTc 462 Medical Records I reviewed the patient's medical records. Lab Data I reviewed the patient's lab results. 04/23/25 12:24 04/23/25 12:24 Labs/Radiology: Radiology Impressions Chest X-Ray 04/23/25 11:24 IMPRESSION: 1. No acute findings. Question COPD. 2. Mild cardiomegaly. Laboratory Results WBC 27.63 10^3/uL (3.29-11.43) H 04/23/25 12:24 RBC 4.79 10^6/uL (3.85-5.65) 04/23/25 12:24 Hgb 13.00 g/dL (11.27-16.99) 04/23/25 12:24 Hct 41.4 % (36-47) 04/23/25 12:24 MCV 86.4 fl (85-98) 04/23/25 12:24 MCH 27.1 pg (27-33) 04/23/25 12:24 MCHC 31.4 g/dL (30-55) 04/23/25 12:24 RDW 13.5 % (12.1-15.1) 04/23/25 12:24 Plt Count 187 10^3/cmm (157-399) 04/23/25 12:24 MPV 10.5 fL (7.4-10.4) H 04/23/25 12:24 Neut % (Auto) 85.2 % 04/23/25 12:24 Lymph % (Auto) 8.0 % 04/23/25 12:24 Caldwell % (Auto) 5.8 % 04/23/25 12:24 Eos % (Auto) 0.1 % 04/23/25 12:24 Baso % (Auto) 0.3 % 04/23/25 12:24 Neut # (Auto) 23.55 10^3/uL (1.8-7.7) H 04/23/25 12:24 Lymph # (Auto) 2.2 10^3/uL (0.8-4.8) 04/23/25 12:24 [place]dwell # (Auto) 1.6 10^3/uL (0.2-0.9) H 04/23/25 12:24 Eos # (Auto) 0.0 10^3/uL (0.0-0.8) 04/23/25 12:24 Baso # (Auto) 0.1 10^3/uL (0.0-0.1) 04/23/25 12:24 Nucleated RBC % (auto) 0 % 04/23/25 12:24 Nucleated RBCs # 0.0 /100WBC 04/23/25 12:24 Sodium 138 mmol/L (136-145) 04/23/25 12:24 Potassium 4.3 mmol/L (3.5-5.1) 04/23/25 12:24 Chloride 100 mmol/L (98-107) 04/23/25 12:24 Carbon Dioxide 26 mmol/L (22-29) 04/23/25 12:24 Anion Gap 16.3 (5-19) 04/23/25 12:24 BUN 17 mg/dL (8-23) 04/23/25 12:24 Creatinine 1.1 mg/dL (0.5-0.9) H 04/23/25 12:24 GFR Calculation Not Reportable 04/23/25 12:24 Glucose 126 mg/dL (65-115) H 04/23/25 12:24 Calculated Osmolality 289 mOsm/kg (285-295) 04/23/25 12:24 Lactic Acid 1.2 mmol/L (0.5-2.2) 04/23/25 12:24 Calcium 9.2 mg/dL (8.5-10.5) 04/23/25 12:24 Total Bilirubin 0.8 mg/dL (0.15-1.2) 04/23/25 12:24 AST 20 U/L (0-32) 04/23/25 12:24 ALT 9 U/L (0-33) 04/23/25 12:24 Alkaline Phosphatase 128 U/L (35-105) H 04/23/25 12:24 NT-Pro-B Natriuret Pep 46618 pg/mL (0-450) H 04/23/25 12:24 Total Protein 7.1 g/dL (6.6-8.7) 04/23/25 12:24 Albumin 3.6 g/dL (3.5-5.2) 04/23/25 12:24 Globulin 3.5 g/dL (1.3-4.6) 04/23/25 12:24 Urine Color Dark yellow (Yellow) A 04/23/25 13:00 Urine Appearance Turbid (CLEAR) A 04/23/25 13:00 Urine pH 5.5 (5-7) 04/23/25 13:00 Ur Specific Mars 1.020 (1.005-1.030) 04/23/25 13:00 Urine Protein 2+ (Negative) A 04/23/25 13:00 Urine Glucose (UA) Negative (Normal) 04/23/25 13:00 Urine Ketones Trace (Negative) 04/23/25 13:00 Urine Blood 2+ (Negative) A 04/23/25 13:00 Urine Nitrate Positive (Negative) A 04/23/25 13:00 Urine Bilirubin 1+ (Negative) H 04/23/25 13:00 Urine Urobilinogen 1.0 mg/dL (Negative) 04/23/25 13:00 Ur Leukocyte Esterase 3+ (Negative) A 04/23/25 13:00 Urine RBC 21-50 /hpf (0-2) H 04/23/25 13:00 Urine WBC >100 /hpf (0-5) H 04/23/25 13:00 Ur Squamous Epith Cells 0-5 /hpf (0-5) 04/23/25 13:00 Amorphous Sediment Not Reportable 04/23/25 13:00 Urine Bacteria 4+ /hpf (NONE) H 04/23/25 13:00 Hyaline Casts 0-4 /lpf H 04/23/25 13:00 Influenza A (PCR) Negative (Negative) 04/23/25 12:03 Influenza Type B (PCR) Negative (Negative) 04/23/25 12:03 RSV (PCR) Negative (Negative) 04/23/25 12:03 SARS-CoV-2 (PCR) Negative (Negative) 04/23/25 12:03 All radiology interpretation(s) finalized by discharge Discharge Plan Discharge Patient Disposition: Admitted As Inpatient Clinical Impression: Acute cystitis, Sepsis Condition: Stable Coding Level of Care Code ED Clinical Informatics Physician for 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
[2025-04-23 12:32] LABS: Hematocrit 41.4 % (36-47); Hemoglobin 13.00 g/dL (11.27-16.99); Mean Corpuscular HGB Conc 31.4 g/dL (30-55); Mean Corpuscular Hemoglobin 27.1 pg (27-33); Mean Corpuscular Volume 86.4 fl (85-98); Nucleated Red Blood Cells % 0 %; Platelet Count 187 10^3/cmm (157-399); Red Blood Count 4.79 10^6/uL (3.85-5.65); White Blood Count 27.63 10^3/uL (3.29-11.43)
[2025-04-23 12:46] LABS: Respiratory Syncytial Virus Ce NEGATIVE (Negative); SARS-CoV-2 PCR NEGATIVE (Negative)
[2025-04-23 12:55] LABS: Lactic Sepsis W/Reflex 1.2 mmol/L (0.5-2.2)
[2025-04-23 13:05] LABS: Alanine Aminotransferase 9 U/L (0-33); Albumin Level 3.6 g/dL (3.5-5.2); Alkaline Phosphatase 128 U/L (35-105); Anion Gap 16.3 (5-19); Aspartate Amino Transferase 20 U/L (0-32); Blood Urea Nitrogen 17 mg/dL (8-23); Calcium 9.2 mg/dL (8.5-10.5); Carbon Dioxide 26 mmol/L (22-29); Chloride 100 mmol/L (98-107); Globulin 3.5 g/dL (1.3-4.6); Glucose 126 mg/dL (65-115); NT Pro B Type Natriuretic Pept 14524 pg/mL (0-450); Osmolality Calculated 289 mOsm/kg (285-295); Potassium 4.3 mmol/L (3.5-5.1); Sodium 138 mmol/L (136-145); Total Protein 7.1 g/dL (6.6-8.7)
[2025-04-23 13:07] VITALS: BP 134/77; PULSE 76; RESP 20; O2SAT 92
[2025-04-23 13:07] LABS: Glucose Urine UA Negative (Normal); Nitrate Urine Positive (Negative); Specific Gravity, Urine 1.020 (1.005-1.030)
[2025-04-23 13:12] LABS: Add Urine Microscopic? YES
[2025-04-23 13:29] LABS: UA Slide Review UA Slide Review Perf
[2025-04-23] MEDS: cefepime 2,000 mg SDV 2000 MG IVP (14:02)
[2025-04-23 15:59] VITALS: BMI 22.4
--- NOTE | 2025-04-23 17:00 | PM.HP ---
Providers/Chief Complaint Admitting Physician: Dez Steel MD Primary Care Provider: Anupam Geiger DO Chief Complaint: sob; lethargy History of Present Illness Nancy Brasher (Patient goes by Nadege) is a 79 year old female with prior medical history of HLD, RLS, INOCENTE, CVA, PEG, dystonia, anemia, pulmonary nodules, transaminitis, fractures, cystitis, sepsis, dysuria, thrush, joint pain, and multiple falls presenting with complaints of shortness of breath. Patient reports that for the last 2 days she has had weakness, congestion, and shortness of breath that has become progressively worse. She called EMS and was transferred to [facility] ED for assessment. She uses walker at the house and uses a cane while in public. She reports she has been doing really well with falls as her last fall was 6 months ago. Of note, patient has little back pain and is due to have back surgery with Dr. Alfaro in approximately 11 days. In the ED, BP 146/80, HR 94, RR 19, T98.5, O2 97%. WBC 27.63, HGB 13, PLT 187.? BUN 17, Creatinine 1.1. Glucose 126. Lactic 1.2. ALT/AST WNL. ALP 128. BNP 68373. Urinalysis; Dark yellow, turbid, 2+ protein, 2+ blood, 3+ leukocytes, nitrate positive, 4+ urine bacteria. CXR; no acute findings, COPD considerations, mild cardiomegaly. Will admit to hospitalist service for further evaluation and treatment. Review of Systems Const: Denies: fever(s) or chills Card: Denies: chest pain Resp: Reports: dyspnea, productive cough and chest congestion GI: Denies: abdominal pain, nausea, vomiting or diarrhea : Denies: flank pain Musc: Reports: back pain, joint pain (left knee), joint swelling and muscle weakness; Denies: neck pain, extremity swelling, joint redness, joint warmth or limited range of motion Skin/Breast: Denies: rash Neuro: Reports: headache(s) and other (Intermittent headache); Denies: numbness in extremities or weakness in extremities Medications/Allergies Home Medications ?Medication ?Instructions ?Recorded ?Confirmed ?Last Taken ?Type aspirin 81 mg tablet,delayed 81 mg PO QAM 08/27/23 04/23/25 04/23/25 History release omeprazole 40 mg capsule,delayed 40 mg PO QAM 08/27/23 04/23/25 04/23/25 History release atorvastatin 80 mg tablet 80 mg PO QPM 09/16/23 04/23/25 04/22/25 History B6 1.7 mg-folic 400 mcg-B12 2.4 1 cap PO DAILY 09/23/24 04/23/25 04/23/25 History qxl-sxdvva-ihqijmpypjww oral capsule (Neuriva Plus Brain Performance) ascorbic acid (vitamin C) 500 mg 500 mg PO DAILY 09/23/24 04/23/25 04/23/25 History capsule cholecalciferol (vitamin D3) 50 50 mcg PO DAILY 09/23/24 04/23/25 04/23/25 History mcg (2,000 unit) capsule deutetrabenazine 24 mg 24 mg PO DAILY 09/23/24 04/23/25 04/23/25 History tablet,extended release 24 hr (Austedo XR) uzrtomzw-omg-hopz 4 mg-folic acid 1 tab PO DAILY 09/23/24 04/23/25 04/23/25 History 200 mcg-vit K 25 mcg-lutein tablet (Centrum Minis Women 50 Plus) nervive Nerve Relief Supplement 1 tab PO DAILY 09/23/24 04/23/25 04/23/25 History oxymetazoline 0.05 % nasal mist 2 spray intranasal Q12H PRN 09/23/24 04/23/25 Unknown History (Afrin (oxymetazoline)) Allergy Symptoms losartan 25 mg tablet 25 mg PO DAILY #100 tabs 09/26/24 04/23/25 04/23/25 Rx metoprolol succinate 50 mg 50 mg PO QAM #90 tabs 11/28/24 04/23/25 04/23/25 Rx tablet,extended release 24 hr ropinirole 2 mg tablet 2 mg PO BID #60 tabs 02/07/25 04/23/25 04/23/25 Rx hydrocodone 7.5 mg-acetaminophen 1 tab PO Q6H PRN pain 30 days #120 03/07/25 04/23/25 Unknown Rx 325 mg tablet tabs deutetrabenazine 6 mg tablet 6 mg PO BID 90 days #180 tabs 11/18/25 12/28/25 12/28/25 Rx (Austedo) cranberry extract 500 mg capsule 500 mg PO TID 04/23/25 04/23/25 04/23/25 History gabapentin 100 mg capsule 200 mg PO Q4H PRN nerve pain 04/23/25 04/23/25 04/23/25 History peg 400-propylene glycol (PF) 0.4 1 drp ophthalmic (eye) QID PRN Dry 04/23/25 04/23/25 04/23/25 History %-0.3 % eye drops in a dropperette Eyes Allergies Allergy/AdvReac Type Severity Reaction Status Date / Time linaclotide (From Linzess) Allergy Unknown Verified 04/17/25 16:43 PFSH Acute PFSH: Medical History Degeneration of intervertebral disc of lumbar region with discogenic back pain and lower extremity pain History of pericarditis Thrombocytopenic disorder DM II (diabetes mellitus, type II), controlled HTN (hypertension) Altered mental status Acute hypoxemic respiratory failure Pneumonia Multiple falls Generalized weakness At risk for aspiration Dysphagia Physical deconditioning Neurologic gait disorder Demyelinating disease of central nervous system Restrictive lung disease Postoperative atrial fibrillation Currently on amiodarone. 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 Orthostatic hypotension Tardive dyskinesia DNR (do not resuscitate) Hypercholesterolemia Chronic obstructive pulmonary disease, unspecified Labyrinthitis Backache Bipolar affective disorder Arthropathy, unspecified RLS (restless legs syndrome) Sleep apnea Peripheral vertigo Irritable bowel syndrome Aortic stenosis, severe Surgical History History of kyphoplasty L5 and S1 History of nasal surgery Status post aortic valve replacement with bioprosthetic valve History of abdominal hysterectomy H/O foot surgery H/O eye surgery H/O oral surgery Hx of cholecystectomy History of appendectomy Family History Other Hypertension Social History Smoking and tobacco/nicotine status: never used tobacco/nicotine Quit status (tobacco/nicotine): has quit using Year quit tobacco: 1979 Former quit date comment: 4-5 cigarettes per day X 6 months Second hand smoke exposure: No Alcohol intake: never Substance/Drug Use: never Additional social history: Patient states she used CBD Gummies to lower her blood pressure. She lives alone with her Jaclyn. Her sister Pearl Hinton is her next of kin. 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 Patient wants DNR status as discussed today with Markos Lopez MD on 10/07/2024 Caregiver/support person: Yes Lives independently: Yes Household members: none Housing: House Marital status: / Current occupational status: retired and disabled Pets and animals: Yes Pets & animals: dog(s) Do you think of yourself as: Straight/Heterosexual Current gender identity: Female Vitals/I&O/Wt Last Vital Signs Temp 98.5 F 04/23/25 17:33 Pulse 94 04/23/25 17:33 Resp 19 H 04/23/25 17:33 BP 146/80 04/23/25 17:33 Pulse Ox 97 04/23/25 17:33 O2 Del Method Nasal Cannula 04/23/25 17:33 O2 Flow Rate 3 04/23/25 13:07 04/23/25 04/23/25 04/23/25 06:59 14:59 22:59 Intake Total 1000 / 1000 Balance 1000 / 1000 Weight last 48 hrs Weight 57.351 kg Weight 58.06 kg Physical Exam Const: COMMON NORMALS: no acute distress and patient oriented x3 Resp: COMMON NORMALS: negative for normal respiratory effort and negative for clear to auscultation bilaterally AUSCULTATION: clear to auscultation bilaterally Cardio: COMMON NORMALS: regular rate and regular rhythm RATE: regular rate RHYTHM: regular rhythm GI: COMMON NORMALS: Normal to inspection, nondistended, normoactive bowel sounds present and non-tender Extremity: COMMON NORMALS: no pedal edema Neuro: COMMON NORMALS: patient oriented x3 Psych: COMMON NORMALS: mental status grossly normal Data 04/23/25 12:24 04/23/25 12:24 Micro: Microbiology 04/23/25 12:51 Blood Culture - Preliminary Blood SPECIMEN COLLECTED 04/23/25 12:51 Blood Culture - Preliminary Blood SPECIMEN COLLECTED A&P Assessment and plan 1. Acute cystitis with hematuria: Leukocytosis WBC 27.63 Creat 1.1 Lactic WNL Blood cultures Urine cultures Urinalysis; dark yellow, turbid, 2+ protein, 2+ urine blood, 1+ bilirubin, 3+ leukocytes, >100 WBC, 4+ urine bacteria Cefepime Floranex Fluids given in ED, stay conservative in setting of elevated BNP Intake and output Pain management Pulse ox Supplemental o2 to keep saturations greater than 92% 2. Fatigue: In setting of COPD, restrictive lung disease History of deconditioning, protein calorie malnutrition, dysphagia, PEG tube, unexpected weight loss, multiple falls and baseline generalized weakness 3. Elevated brain natriuretic peptide (BNP) level: BNP 66927 Monitor I&O Conservative fluids given in ED in case of sepsis rule out Monitor BNP 4. Recurrent falls: Uses walker at home, cane outside of home PT/OT prior to discharge Fall risk precautions 5. Tardive dyskinesia: Also history of neurologic gait disorder, (Patient has CVA listed in hx but this is in a differential diagnosis versus unresponsive episodes- unclear etiology possibly after botulin therapy, in the past received tPA, although without evidence of CVA on subsequent imaging) On home Priscilla Has followed with Dr. Jin, Neurology PDMP PDMP Reviewed: Not Reviewed Attestations Medical Necessity Statement*: Patient not expected to cross 2 midnights. She is shortness of breath and fatigue with no chest pain or oxygen requirements. Patient will also be treated for UTI. Diagnoses Acute cystitis with hematuria N30.01 Hematuria presence: with hematuria Urinary tract infection type: acute cystitis Fatigue R53.83 Elevated brain natriuretic peptide (BNP) level R79.89 Recurrent falls R29.6 Tardive dyskinesia G24.01
[2025-04-23 17:33] VITALS: BP 146/80; PULSE 94; RESP 19; TEMP 36.9; O2SAT 97
[2025-04-23 18:50] VITALS: BP 132/49; PULSE 100; RESP 18; TEMP 36.6; O2SAT 99
[2025-04-23 20:00] VITALS: BP 132/49; PULSE 100; RESP 18; TEMP 36.6; O2SAT 99
[2025-04-23 21:47] LABS: Coronavirus 229E,HKU1,NL63,OC4 Not Detected (NOT DETECT); Parainfluenza Virus Type 1 Not Detected (NOT DETECT); Parainfluenza Virus Type 2 Not Detected (NOT DETECT); Parainfluenza Virus Type 3 Not Detected (NOT DETECT); Parainfluenza Virus Type 4 Not Detected (NOT DETECT); SARS-COV-2 Not Detected (NOT DETECT)
[2025-04-24] VITALS (7 sets, daily range): BP systolic 127–175; BP diastolic 60–72; PULSE 79–102; RESP 16–19; TEMP 36.4–36.7; O2SAT 95–99
[2025-04-24] MEDS: metoprolol succinate ER (24 HR) 50 mg Tablet PO (04:49)
[2025-04-24] MEDS: LOSARTAN 25 MG TABLET PO (04:49)
[2025-04-24] MEDS: HYDROcodone-acetaminophen 7.5-325 mg Tablet 1 TAB PO (04:49)
[2025-04-24] MEDS: lactobacillus 1 Tablet 1 TAB PO (04:49)
[2025-04-24] MEDS: multivitamin therapeutic Tablet 1 TAB PO (04:49)
[2025-04-24 05:18] LABS: Hematocrit 35.2 % (36-47); Hemoglobin 10.70 g/dL (11.27-16.99); Mean Corpuscular HGB Conc 30.4 g/dL (30-55); Mean Corpuscular Hemoglobin 26.8 pg (27-33); Mean Corpuscular Volume 88.2 fl (85-98); Nucleated Red Blood Cells % 0 %; Platelet Count 145 10^3/cmm (157-399); Red Blood Count 3.99 10^6/uL (3.85-5.65); White Blood Count 13.67 10^3/uL (3.29-11.43)
[2025-04-24 05:29] LABS: Estmated Average Glucose 105; Hemoglobin A1C 5.3 % (4.0-6.0)
[2025-04-24 05:44] LABS: Anion Gap 12.8 (5-19); Blood Urea Nitrogen 18 mg/dL (8-23); Calcium 8.8 mg/dL (8.5-10.5); Carbon Dioxide 27 mmol/L (22-29); Chloride 105 mmol/L (98-107); Glucose 127 mg/dL (65-115); Magnesium 2.0 mg/dL (1.7-2.3); Osmolality Calculated 295 mOsm/kg (285-295); Potassium 3.8 mmol/L (3.5-5.1); Sodium 141 mmol/L (136-145)
--- NOTE | 2025-04-24 08:59 | PM.DCS ---
Discharge Providers Date of Admission: 04/23/25 13:57 Date of Discharge: April 24, 2025 Attending Provider at Admission: Dez Steel MD Attending Provider at Discharge: Nieves Dodson NP Primary Care Provider: Anupam Geiger DO Diagnoses at Discharge Discharge Diagnosis 1. Acute cystitis with hematuria: 2. Fatigue: 3. Elevated brain natriuretic peptide (BNP) level: 4. Recurrent falls: 5. Tardive dyskinesia: Reason for Visit Reason for Visit: sob; lethargy Brief History: Admission: Nancy Brasher (Patient goes by [place]) is a 79 year old female with prior medical history of HLD, RLS, INOCENTE, CVA, PEG, dystonia, anemia, pulmonary nodules, transaminitis, fractures, cystitis, sepsis, dysuria, thrush, joint pain, and multiple falls presenting with complaints of shortness of breath. Patient reports that for the last 2 days she has had weakness, congestion, and shortness of breath that has become progressively worse. She called EMS and was transferred to [facility] ED for assessment. She uses walker at the house and uses a cane while in public. She reports she has been doing really well with falls as her last fall was 6 months ago. Of note, patient has little back pain and is due to have back surgery with Dr. Alfaro in approximately 11 days. In the ED, BP 146/80, HR 94, RR 19, T98.5, O2 97%. WBC 27.63, HGB 13, PLT 187.? BUN 17, Creatinine 1.1. Glucose 126. Lactic 1.2. ALT/AST WNL. ALP 128. BNP 48964. Urinalysis; Dark yellow, turbid, 2+ protein, 2+ blood, 3+ leukocytes, nitrate positive, 4+ urine bacteria. CXR; no acute findings, COPD considerations, mild cardiomegaly. Will admit to hospitalist service for further evaluation and treatment. Hospital Course Hospital Course 1. Acute cystitis with hematuria: Leukocytosis WBC 27.63, improved 13.67 Creat 1.1 Lactic WNL Blood cultures Urine cultures Urinalysis; dark yellow, turbid, 2+ protein, 2+ urine blood, 1+ bilirubin, 3+ leukocytes, >100 WBC, 4+ urine bacteria Cefepime transitioned to oral antibiotics at discharge Floranex Fluids given in ED, stay conservative in setting of elevated BNP Intake and output Pain management Pulse ox Supplemental o2 to keep saturations greater than 92% 2. Fatigue: In setting of COPD, restrictive lung disease History of deconditioning, protein calorie malnutrition, dysphagia, PEG tube, unexpected weight loss, multiple falls and baseline generalized weakness 3. Elevated brain natriuretic peptide (BNP) level: BNP 16049 Monitor I&O Conservative fluids given in ED in case of sepsis rule out Monitor BNP 4. Recurrent falls: Uses walker at home, cane outside of home PT/OT prior to discharge Fall risk precautions 5. Tardive dyskinesia: Also history of neurologic gait disorder, (Patient has CVA listed in hx but this is in a differential diagnosis versus unresponsive episodes- unclear etiology possibly after botulin therapy, in the past received tPA, although without evidence of CVA on subsequent imaging) On home Priscilla Has followed with Dr. Jin, Neurology Discharge: Discharge is in stable condition at baseline. Continues oral antibiotics at discharge with Keflex and doxycycline, will need to follow-up outpatient urine cultures through PCP. Prescribed nebulizer given history of COPD and chronic cough with thick mucus, as needed DuoNeb at discharge, continues mucinex. Patient does continue to have lower leg weakness at her baseline, does have home helpers and home nurse. Patient discharge is at her baseline functioning, to follow-up with primary care provider in 1 to 2 days. All questions and concerns addressed prior to discharge. Physical Exam Const: COMMON NORMALS: no acute distress and patient oriented x3 Resp: COMMON NORMALS: negative for normal respiratory effort and negative for clear to auscultation bilaterally AUSCULTATION: not clear to auscultation bilaterally Cardio: COMMON NORMALS: regular rate and regular rhythm RATE: regular rate RHYTHM: regular rhythm GI: COMMON NORMALS: Normal to inspection, nondistended, normoactive bowel sounds present and non-tender Extremity: COMMON NORMALS: no pedal edema Neuro: COMMON NORMALS: patient oriented x3 Psych: COMMON NORMALS: mental status grossly normal Discharge Data Studies Completed and Pending Completed Studies During Hospitalization Category Date Time Status XR chest 1V portable [id number] Stat Exams 04/23/25 11:24 Completed Pending at discharge Category Date Time Status Basic Metabolic Panel AM LABS Lab 04/25/25 04:00 Ordered Basic Metabolic Panel AM LABS Lab 04/26/25 04:00 Ordered Blood Culture Stat Lab 04/23/25 12:51 Results Complete Blood Count w/Auto AM LABS Lab 04/25/25 04:00 Ordered Complete Blood Count w/Auto AM LABS Lab 04/26/25 04:00 Ordered Urine Culture Stat Lab 04/23/25 13:00 Results Radiology Impressions Chest X-Ray 04/23/25 11:24 IMPRESSION: 1. No acute findings. Question COPD. 2. Mild cardiomegaly. Laboratory Results WBC 13.67 10^3/uL (3.29-11.43) H 04/24/25 05:10 RBC 3.99 10^6/uL (3.85-5.65) 04/24/25 05:10 Hgb 10.70 g/dL (11.27-16.99) L 04/24/25 05:10 Hct 35.2 % (36-47) L 04/24/25 05:10 MCV 88.2 fl (85-98) 04/24/25 05:10 MCH 26.8 pg (27-33) L 04/24/25 05:10 MCHC 30.4 g/dL (30-55) 04/24/25 05:10 RDW 13.4 % (12.1-15.1) 04/24/25 05:10 Plt Count 145 10^3/cmm (157-399) L 04/24/25 05:10 MPV 10.1 fL (7.4-10.4) 04/24/25 05:10 Neut % (Auto) 77.3 % 04/24/25 05:10 Lymph % (Auto) 12.8 % 04/24/25 05:10 [place] % (Auto) 7.5 % 04/24/25 05:10 Eos % (Auto) 1.6 % 04/24/25 05:10 Baso % (Auto) 0.4 % 04/24/25 05:10 Neut # (Auto) 10.56 10^3/uL (1.8-7.7) H 04/24/25 05:10 Lymph # (Auto) 1.8 10^3/uL (0.8-4.8) 04/24/25 05:10 [place] # (Auto) 1.0 10^3/uL (0.2-0.9) H 04/24/25 05:10 Eos # (Auto) 0.2 10^3/uL (0.0-0.8) 04/24/25 05:10 Baso # (Auto) 0.1 10^3/uL (0.0-0.1) 04/24/25 05:10 Nucleated RBC % (auto) 0 % 04/24/25 05:10 Nucleated RBCs # 0.0 /100WBC 04/24/25 05:10 Sodium 141 mmol/L (136-145) 04/24/25 05:10 Potassium 3.8 mmol/L (3.5-5.1) 04/24/25 05:10 Chloride 105 mmol/L (98-107) 04/24/25 05:10 Carbon Dioxide 27 mmol/L (22-29) 04/24/25 05:10 Anion Gap 12.8 (5-19) 04/24/25 05:10 BUN 18 mg/dL (8-23) 04/24/25 05:10 Creatinine 0.8 mg/dL (0.5-0.9) 04/24/25 05:10 GFR Calculation Not Reportable 04/24/25 05:10 Glucose 127 mg/dL (65-115) H 04/24/25 05:10 POC Glucose 108 mg/dL (70-110) 04/23/25 16:30 Estimat Average Glucose 105 04/24/25 05:10 Hemoglobin A1c 5.3 % (4.0-6.0) 04/24/25 05:10 Calculated Osmolality 295 mOsm/kg (285-295) 04/24/25 05:10 Lactic Acid 1.2 mmol/L (0.5-2.2) 04/23/25 12:24 Calcium 8.8 mg/dL (8.5-10.5) 04/24/25 05:10 Phosphorus 4.0 mg/dL (2.5-4.5) 04/24/25 05:10 Magnesium 2.0 mg/dL (1.7-2.3) 04/24/25 05:10 Total Bilirubin 0.8 mg/dL (0.15-1.2) 04/23/25 12:24 AST 20 U/L (0-32) 04/23/25 12:24 ALT 9 U/L (0-33) 04/23/25 12:24 Alkaline Phosphatase 128 U/L (35-105) H 04/23/25 12:24 NT-Pro-B Natriuret Pep 89902 pg/mL (0-450) H 04/23/25 12:24 Total Protein 7.1 g/dL (6.6-8.7) 04/23/25 12:24 Albumin 3.6 g/dL (3.5-5.2) 04/23/25 12:24 Globulin 3.5 g/dL (1.3-4.6) 04/23/25 12:24 Urine Color Dark yellow (Yellow) A 04/23/25 13:00 Urine Appearance Turbid (CLEAR) A 04/23/25 13:00 Urine pH 5.5 (5-7) 04/23/25 13:00 Ur Specific [place] 1.020 (1.005-1.030) 04/23/25 13:00 Urine Protein 2+ (Negative) A 04/23/25 13:00 Urine Glucose (UA) Negative (Normal) 04/23/25 13:00 Urine Ketones Trace (Negative) 04/23/25 13:00 Urine Blood 2+ (Negative) A 04/23/25 13:00 Urine Nitrate Positive (Negative) A 04/23/25 13:00 Urine Bilirubin 1+ (Negative) H 04/23/25 13:00 Urine Urobilinogen 1.0 mg/dL (Negative) 04/23/25 13:00 Ur Leukocyte Esterase 3+ (Negative) A 04/23/25 13:00 Urine RBC 21-50 /hpf (0-2) H 04/23/25 13:00 Urine WBC >100 /hpf (0-5) H 04/23/25 13:00 Ur Squamous Epith Cells 0-5 /hpf (0-5) 04/23/25 13:00 Amorphous Sediment Not Reportable 04/23/25 13:00 Urine Bacteria 4+ /hpf (NONE) H 04/23/25 13:00 Hyaline Casts 0-4 /lpf H 04/23/25 13:00 Adenovirus (PCR) Not detected (NOT DETECT) 04/23/25 19:53 C. pneumoniae DNA (PCR) Not detected (NOT DETECT) 04/23/25 19:53 Coronavirus 229E (PCR) Not detected (NOT DETECT) 04/23/25 19:53 Human Metapneumovir PCR Not detected (NOT DETECT) 04/23/25 19:53 Influenza A (H1) PCR Not detected (NOT DETECT) 04/23/25 19:53 Influenza A (PCR) Negative (Negative) 04/23/25 12:03 Influ A (H1/09) PCR Not detected (NOT DETECT) 04/23/25 19:53 Influenza A (H3) PCR Not detected (NOT DETECT) 04/23/25 19:53 Influenza Type A (PCR) Not detected (NOT DETECT) 04/23/25 19:53 Influenza Type B (PCR) Not detected (NOT DETECT) 04/23/25 19:53 M. pneumoniae (PCR) Not detected (NOT DETECT) 04/23/25 19:53 Parainfluenza 1 (PCR) Not detected (NOT DETECT) 04/23/25 19:53 Parainfluenza 2 (PCR) Not detected (NOT DETECT) 04/23/25 19:53 Parainfluenza 3 (PCR) Not detected (NOT DETECT) 04/23/25 19:53 Parainfluenza 4 (PCR) Not detected (NOT DETECT) 04/23/25 19:53 RSV (PCR) Negative (Negative) 04/23/25 12:03 RSV Type A (PCR) Not detected (NOT DETECT) 04/23/25 19:53 RSV Type B (PCR) Not detected (NOT DETECT) 04/23/25 19:53 Entero/Rhino (PCR) Not detected (NOT DETECT) 04/23/25 19:53 SARS-CoV-2 (PCR) Not detected (NOT DETECT) 04/23/25 19:53 Vitals Last Vital Signs Temp 98.0 F 04/24/25 07:41 Pulse 81 04/24/25 07:41 Resp 19 H 04/24/25 07:41 BP 175/69 04/24/25 07:41 Pulse Ox 99 04/24/25 07:41 O2 Del Method Nasal Cannula 04/24/25 07:41 O2 Flow Rate 3 04/23/25 20:06 Discharge Plan Discharge Patient Disposition: Home Health Service Condition: Stable Prescriptions: New Lactobacillus acidoph-L.bulgar 1 million cell Tablet 1 tab PO BID 14 Days Qty: 28 0RF cephalexin 500 mg capsule 500 mg PO BID 7 Days Qty: 14 0RF ipratropium-albuterol 0.5 mg-3 mg(2.5 mg base)/3 mL solution for nebulization 3 ml inhalation Q6H PRN (Reason: shortness of breath) Qty: 90 0RF dextromethorphan-guaifenesin [Mucinex DM] 60-1,200 mg tablet extended release 12 hr 1 tab PO Q12H 7 Days Qty: 14 0RF doxycycline hyclate 100 mg capsule 100 mg PO BID 7 Days Qty: 14 0RF Continued Afrin (oxymetazoline) 0.05 % mist 2 spray intranasal Q12H PRN (Reason: Allergy Symptoms) cholecalciferol (vitamin D3) 50 mcg (2,000 unit) capsule 50 mcg PO DAILY ascorbic acid (vitamin C) 500 mg capsule 500 mg PO DAILY Neuriva Plus Brain Performance 1.7 mg-400 mcg- 2.4 mcg capsule 1 cap PO DAILY Austedo XR 24 mg tablet extended release 24 hr 24 mg PO DAILY Centrum Minis Women 50 Plus 4 mg iron-200 mcg-25 mcg tablet 1 tab PO DAILY nervive Nerve Relief Supplement 1 tab PO DAILY [place] 6 mg tablet 6 mg PO BID 90 Days Qty: 180 3RF ropinirole 2 mg tablet 2 mg PO BID Qty: 60 5RF hydrocodone-acetaminophen 7.5-325 mg tablet 1 tab PO Q6H PRN (Reason: pain) 30 Days Qty: 120 0RF losartan 25 mg tablet 25 mg PO DAILY Qty: 100 1RF metoprolol succinate 50 mg tablet extended release 24 hr 50 mg PO QAM Qty: 90 1RF omeprazole 40 mg Capsule,Delayed Release(Dr/Ec) 40 mg PO QAM aspirin 81 mg Tablet,Delayed Release (Dr/Ec) 81 mg PO QAM cranberry extract 500 mg Capsule 500 mg PO TID Rx Instructions: administer with meals peg 400-propylene glycol (PF) 0.4-0.3 % Dropperette 1 drp OPHTHALMIC (EYE) QID PRN (Reason: Dry Eyes) gabapentin 100 mg capsule 200 mg PO Q4H PRN (Reason: nerve pain) atorvastatin 80 mg Tablet 80 mg PO QPM Discharge Order = DC NOW: Discharge Order (Routine); Ordered 04/24/25 Ordered By: Nieves Dodson Other Ambulatory Orders: DME: Nebulizer with Neb Kit (Order) Timeframe: 1 Month Location: None Selected Ordered By: Nieves Dodson [place] [facility] [place] Anupam Geiger DO [Primary Care Provider, [facility]] - 04/26/25 2:00 pm Referral Note: Discharge Diet: Resume prior tube feeds Discharge Activity: Resume usual activity Patient Instructions: Cephalexin (By mouth), Ipratropium/Albuterol (By breathing), Opioid Safety, Patient Portal & Viky Instructions Discharge Attestations Time Spent in Discharge Care*: greater than 30 min Quality Metrics Clinical Quality Measures [ No reported AMI, CVA or VTE this stay] Coding Level of Care Code 50903 Diagnoses Acute cystitis with hematuria N30.01 Hematuria presence: with hematuria Urinary tract infection type: acute cystitis Fatigue R53.83 Elevated brain natriuretic peptide (BNP) level R79.89 Recurrent falls R29.6 Tardive dyskinesia G24.01
--- NOTE | 2025-04-24 09:18 | PC.CHAP ---
Pastoral Care Encounter/Spiritual Assessment Type of Contact [] Declined cinder crew worker visit [] Patient/Family/Request visit [] Outpatient visit [] Follow-up visit [] Physician referral [] Code/Alert [x] Routine visit [] Staff referral [] Actively dying [] Patient sleeping [] Family support [] [] Out of room [] Palliative care [] [] Receiving care in room [] Pre-surgical visit [] Trauma [] Long length of stay [] ICU visit [] Other: Relational/Emotional Strength [] Patient feels connected with others/family/visitors/staff [] Distress [] Loneliness/isolation [] Abandonment Spirituality of Patient [x] Person of Maile [] Attends Restorationism of their Maile [x] Believes in Prayer [] Reads Bible or Tenriism materials [] There are Spiritual issues to be addressed Swine Genetics Researcher Interventions [x] Prayer [x] Active listening [] Non-anxious presence [] Spiritual/emotional support [] Crisis/trauma care [] Spiritual counseling [] Bereavement support [] Provided bereavement packet [x] Provided Bible/devotional materials [] Provided toy/stuffed animal, coloring book to patient or family member [] Provided Communion [] Anointing/Moore [] Salvation [x] Completed spiritual assessment [] Other: Impact on Illness or Injury [] Angry [] Fearful [] Anxious [] Often cries [] Exhaustion [] Unable to work [] Unable to attend holiness [] Unable to walk/stand [] Unable to read [] Unable to drive [] Unable to eat/drink [] Unable to sleep [] Unable to be with family [] Patient intubated [] Other: Summary Time spent with patient 10 min
--- OUTSIDE RECORDS SUMMARY | 2025-05-01 14:46 | XMS_ITS | Encounter Summary ---
Author Organization [facility] Address [address] [place] [address] Care Team Providers Care Yard Supervisor Cotton Gin Name Role Phone Unavailable Primary Care Provider Unavailabl e Encounter Details Date Type Department Care Team (Latest Contact Info) Description 06/22/1998 Outpatient Historical [facility] Family Medicine [place] [address] [phone] Pavel Montoya MD NO ADDRESS ON FILE Acute pharyngitis (Primary Dx); Esophagitis, unspecified Social History Tobacco Use Types Packs/Day Years Used Date Smoking Tobacco: Never Assessed Comments Unknown Sex and Gender Information Value Date Recorded Sex Assigned at Not on file 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
--- OUTSIDE RECORDS SUMMARY | 2025-05-01 14:46 | XMS_ITS | Encounter Summary ---
Author Organization [facility] Address [address] [place] [address] Care Team Providers Care Salad Counter Attendant Name Role Phone Unavailable Primary Care Provider Unavailabl e Encounter Details Date Type Department Care Team (Late st Contact Info) Description 11/07/2019 Lab Requisition [facility] [address] [place] [address] [place] [phone] Carlos Tripp DO [address] [place] [address] Social History Tobacco Use Types Packs/Day Years Used Date Smoking Tobacco: Never Assessed Comments Unknown Sex and Gender Information Value Date Recorded Sex Assigned at Not on file 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 Gender Identity Not on file Sexual Orientation Not on file documented as of this encounter Plan of Treatment Not on file documented as of this encounter Procedures Procedure Name Priority Date/Time Associated Diagnosis Comments BLOOD CULTURE Stat 11/07/2019 9:30 PM CDT documented in this encounter Results * BLOOD CULTURE (11/07/2019 9:30 PM CDT) BLOOD CULTURE No growth 11/13/2019 5:39 AM CDT [facility] [employer] [facility] Blood (Peripheral) Collection / Unknown 11/07/2019 9:30 PM CDT 11/07/2019 11:19 PM CDT Carlos Tripp DO MICROBIOLOGY - GENERAL ORD ERABLES Final Result [facility] [employer] [facility] [address] [place] [address] documented in this encounter Visit Diagnoses Not on filedocumented in this encounter
--- OUTSIDE RECORDS SUMMARY | 2025-05-01 14:46 | XMS_ITS | Encounter Summary ---
Author Organization [facility] Address [address] [place] [address] Care Team Providers Care Railroad Car Repairman Name Role Phone Unavailable Primary Care Provider Unavailabl e Encounter Details Date Type Department Care Team (Late st Contact Info) Description 11/11/2019 Lab Requisition [facility] Laboratory Services [address] [place] [address] [place] [phone] Kathrine Toney FNP NO ADDRESS ON FILE Social History Tobacco Use Types Packs/Day Years Used Date Smoking Tobacco: Never Assessed Comments Unknown Sex and Gender Information Value Date Recorded Sex Assigned at Not on file 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
--- OUTSIDE RECORDS SUMMARY | 2025-05-01 14:46 | XMS_ITS | Encounter Summary ---
Author Organization [employer] 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 [employer] [facility] Blood Collection / Unknown 11/03/2019 3:20 AM CDT 11/03/2019 7:05 AM CDT us Elio Luevano MD CHEMISTRY ORDERABLES Final Resu lt [facility] [address] [place] [address] * (ABNORMAL) COMPREHENSIVE METABOLIC PANEL (11/03/2019 3:20 AM CDT) SODIUM 146(H) 136 - 145 mmol/L 11/03/2019 7:23 AM CDT [facility] POTASSIUM 3.7 3.5 - 5.1 mmol/L 11/03/2019 7:23 AM T [facility] CHLORIDE 107 98 - 107 mmol/L 11/03/2019 7:23 AM T [facility] CO2 31(H) 22 - 29 mmol/L 11/03/2019 7:23 AM T [facility] CALCIUM 8.4(L) 8.8 - 10.2 mg/dL 11/03/2019 7:23 AM T [facility] BUN 32(H) 8 - 23 mg/dL 11/03/2019 7:23 AM T [facility] CREATININE 1.04(H) 0.51 - 0.95 mg/dL 11/03/2019 7:23 AM T [facility] Comment:The GFR result is no t clinically significant on patients <18 or >70 years of age. GLUCOSE 144(H) 74 - 99 mg/dL 11/03/2019 7:23 AM T [facility] TOTAL PROTEIN 6.1(L) 6.4 - 8.3 g/dL 11/03/2019 7:23 AM T [facility] ALBUMIN 3.0(L) 3.5 - 5.2 g/dL 11/03/2019 7:23 AM T [facility] BILIRUBIN TOTAL 0.6 0.2 - 1.0 mg/dL 11/03/2019 7:23 AM T [facility] ALKALINE PHOSPHATASE 133(H) 35 - 104 U/L 11/03/2019 7:23 AM T [facility] AST 32 10 - 35 U/L 11/03/2019 7:23 AM T [facility] ALT 19 <=35 U/L 11/03/2019 7:23 AM CDT [facility] GFR 52 mL/min/1. 73 sq meter 11/03/2019 7:23 AM T [facility] Comment: eGFR has not [...] 73 sq meter 11/03/2019 7:23 AM T [facility] ANION GAP 8(L) 9 - 20 mmol/L 11/03/2019 7:23 AM T [facility] Blood Collection / Unknown 11/03/2019 3:20 AM CDT 11/03/2019 7:05 AM CDT us Elio Luevano MD CHEMISTRY ORDERABLES Final Resu lt [facility] [address] [place] [address] * (ABNORMAL) CBC WITHOUT DIFFERENTIAL (11/03/2019 3:20 AM CDT) WBC 11.8(H) 4.8 - 10.8 K/uL 11/03/2019 7:12 AM T [facility] RBC 3.03(L) 4.20 - 5.40 M/uL 11/03/2019 7:12 AM T [facility] HEMOGLOBIN 9.0(L) 12.0 - 16.0 g/dL 11/03/2019 7:12 AM CDT [facility] HEMATOCRIT 29.0(L) 36.0 - 46.0 % 11/03/2019 7:12 AM CDT [facility] MCV 95.7 84.0 - 103.0 fL 11/03/2019 7:12 AM CDT [facility] MCH 29.7 27.0 - 34.0 pg 11/03/2019 7:12 AM CDT [facility] MCHC 31.0 30.0 - 35.0 g/dL 11/03/2019 7:12 AM CDT [facility] PLATELETS 272 140 - 440 K/uL 11/03/2019 7:12 AM CDT [facility] MPV 10.1 8.9 - 12.8 fL 11/03/2019 7:12 AM CDT [facility] RDW 13.8 11.0 - 14.5 % 11/03/2019 7:12 AM T [facility] RDW-STDEV 47.9 37.0 - 54.0 fL 11/03/2019 7:12 AM T [facility] Blood Collection / Unknown 11/03/2019 3:20 AM CDT 11/03/2019 7:05 AM CDT us Elio Luevano MD HEMATOLOGY ORDERABLES Final Res ult [facility] [address] [place] [address] documented in this encounter Visit Diagnoses Not on filedocumented in this encounter
--- OUTSIDE RECORDS SUMMARY | 2025-05-01 14:46 | XMS_ITS | Encounter Summary ---
Author Organization [facility] Address [address] [place] [address] Care Team Providers Care Tube Winder Name Role Phone Unavailable Primary Care Provider Unavailabl e Encounter Details Date Type Department Care Team (Late st Contact Info) Description 11/10/2019 Lab Requisition [facility] Laboratory Services E [place] [address] 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 SPECIFIC GRAVITY UA 1.016 1.003 - 1.035 11/10/2019 12:[address] [facility] PH UA 5.0 5.0 - 8.0 11/10/2019 12:[address] [facility] LEUKOCYTE ESTERASE UA Negative Negative 11/10/2019 12:[address] [facility] NITRITE UA Negative Negative 11/10/2019 12:[address] [facility] PROTEIN UA Negative Negative 11/10/2019 12:[address] [facility] GLUCOSE UA Negative Negative 11/10/2019 12:[address] [facility] KETONES UA Negative Negative 11/10/2019 12:[address] [facility] UROBILINOGEN UA <2.0 <2.0 mg/dL 0 12:[address] [facility] BILIRUBIN UA Negative Negative 11/10/2019 12:[address] [facility] BLOOD UA Negative Negative 11/10/2019 12:[address] [facility] Comment:Ascorbic acid may ca use false negative results for blood. A microscopic review was reflexed to rule out this interference. WBC UA 0-2 0 - 2 /hpf 11/10/2019 12:[address] [facility] RBC UA 0-2 0 - 2 /hpf 11/10/2019 12:[address] [facility] BACTERIA UA Negative Negative /hpf 11/10/2019 12:[address] [facility] HYALINE CAST 0-2 None Seen, 0-2 /lpf 11/10/2019 12:[address] [facility] AMORPHOUS CRYSTAL Present(A) Absent 11/10/2019 12:[address] [facility] COMMENT, URINE Mucous: Few 0 12:[address] [facility] Ascorbic Acid UA Positive(A) Negative 11/10/2019 12:[address] [facility] Urine URINE SPECIMEN / Unknown Collection / Unknown 11/10/2019 4:55 PM CDT 11/10/2019 12:16 PM CDT Cristiane Minor NP URINE ORDERABLES Final Result Performing Organization Address [facility] Co de Phone Number [address] [address] * LACTIC ACID (11/10/2019 12:00 PM CDT) LACTIC ACID 0.7 <=2.0 mmol/L 11/10/2019 12:43 PM CDT [facility] Blood Collection / Unknown 11/10/2019 12:00 PM CDT 11/10/2019 12:14 PM CDT Cristiane Minor NP CHEMISTRY ORDERABLES Final Resu lt Performing Organization Address [facility] Co de Phone Number [address] [address] * (ABNORMAL) PROCALCITONIN (11/10/2019 11:55 AM CDT) PROCALCITONIN 0.80(H) <=0.08 ng/mL 11/10/2019 1:01 PM CDT [facility] Blood Collection / Unknown 11/10/2019 11:55 AM CDT 11/10/2019 12:31 PM CDT Narrative [facility] - 11/10/2019 1:01 PM CDT The utility [...] ORDERABLES Final Resu lt Performing Organization Address [facility] Co de Phone Number [facility] [address] [place] [address] * BLOOD CULTURE (11/10/2019 11:34 AM CDT) BLOOD CULTURE No growth 11/15/2019 12:49 PM CDT [facility] [facility] Blood (Peripheral) 11/10/2019 11:34 AM CDT 11/10/2019 12:18 PM CDT us Cristiane Minor NP MICROBIOLOGY - GENERAL ORDERABL ES Final Result Performing Organization Address [facility] Co de Phone Number [facility] [address] [place] [address] documented in this encounter Visit Diagnoses Not on filedocumented in this encounter
--- OUTSIDE RECORDS SUMMARY | 2025-05-01 14:46 | XMS_ITS | Encounter Summary ---
Author Organization [employer] [facility] Address [address] 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
--- OUTSIDE RECORDS SUMMARY | 2025-05-01 14:46 | XMS_ITS | Encounter Summary ---
Author Organization [facility] Address [address] [place] [address] Care Team Providers Care Labor Economist Name Role Phone Unavailable Primary Care Provider Unavailabl e Encounter Details Date Type Department Care Team (Late st Contact Info) Description 11/02/2019 Lab Requisition [facility] Laboratory Services [address] [place] [address] [place] [phone] [place] [address] [place] [address] Social History Tobacco Use Types Packs/Day Years Used Date Smoking Tobacco: Never Assessed Comments Unknown Sex and Gender Information Value Date Recorded Sex Assigned at Not on file 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
--- OUTSIDE RECORDS SUMMARY | 2025-05-01 14:46 | XMS_ITS | Encounter Summary ---
Author Organization [facility] Address [address] [place] [address] Care Team Providers Care Insurance Assistant Name Role Phone Unavailable Primary Care Provider Unavailabl e Encounter Details Date Type Department Care Team (Late st Contact Info) Description 11/11/2019 Lab Requisition [facility] Laboratory Services [address] [place] [address] 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 Gender Identity Not on file Sexual [...] Detected Not Detected 11/11/2019 7:02 AM CDT [facility] [employer] [facility] Stool STOOL SPECIMEN / Unknown Collection / Unknown 11/11/2019 2:00 AM CDT 11/11/2019 5:52 AM CDT Narrative [facility] - 11/11/2019 7:02 AM CDT [...] ORDERABL ES Final Result Performing Organization Address [facility]/State/ZIP Co de Phone Number [facility] LABORATORY SERVICES [place] [id number] [place] [address] documented in this encounter Visit Diagnoses Not on filedocumented in this encounter
--- OUTSIDE RECORDS SUMMARY | 2025-05-01 14:46 | XMS_ITS | Encounter Summary ---
Author Organization [facility] Address [address] [place] [address] Care Team Providers Care Lamination Operator Name Role Phone Unavailable Primary Care Provider Unavailabl e Encounter Details Date Type Department Care Team (Latest Contact Info) Description 12/18/1999 Outpatient Historical [facility] Family Medicine [place] [id number] [address] [phone] Venecia March, DO [address] [place] [address] Unspecified essential hypertension (Primary Dx); Esophageal reflux Social History Tobacco Use Types Packs/Day Years Used Date Smoking Tobacco: Never Assessed Comments Unknown Sex and Gender Information Value Date Recorded Sex Assigned at Not on file Legal 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
--- OUTSIDE RECORDS SUMMARY | 2025-05-01 14:46 | XMS_ITS | Encounter Summary ---
Author Organization [facility] Address [address] [place] [address] Care Team Providers Care Regional Sales Consultant Name Role Phone Unavailable Primary Care Provider Unavailabl e Encounter Details Date Type Department Care Team (Latest Contact Info) Description 10/25/1998 Outpatient Historical [facility] Family Medicine [place] [address] [phone] Pavel Montoya MD NO ADDRESS ON FILE Cellulitis and abscess of unspecified site (Primary Dx); Enlargement of lymph nodes; Other symptoms referable to ankle and foot joint Social History Tobacco Use Types Packs/Day Years Used Date Smoking Tobacco: Never Assessed Comments Unknown Sex and Gender Information Value Date Recorded Sex Assigned at Not on file 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
--- OUTSIDE RECORDS SUMMARY | 2025-05-01 14:46 | XMS_ITS | Encounter Summary ---
Author Organization [employer] [facility] Address [address] [place] [address] Care Team Providers Care Jukebox Routeman Name Role Phone Unavailable Primary Care Provider Unavailabl e Encounter Details Date Type Department Care Team (Late st Contact Info) Description 11/07/2019 Lab Requisition [facility] [address] [place] [address] [place] [phone] Carlos Tripp DO [address] [place] [address] Social History Tobacco Use Types Packs/Day Years Used Date Smoking Tobacco: Never Assessed Comments Unknown Sex and Gender Information Value Date Recorded Sex Assigned at Not on file Legal Sex Female 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 Gender Identity Not on file Sexual Orientation Not on file documented as of this encounter Plan of Treatment Not on file documented as of this encounter Procedures Procedure Name Priority Date/Time Associated Diagnosis Comments BLOOD CULTURE Stat 11/07/2019 9:30 PM CDT documented in this encounter Results * BLOOD CULTURE (11/07/2019 9:30 PM CDT) BLOOD CULTURE No growth 11/13/2019 5:39 AM CDT [facility] [employer] [facility] Blood (Peripheral) Collection / Unknown 11/07/2019 9:30 PM CDT 11/07/2019 11:19 PM CDT Carlos Tripp DO MICROBIOLOGY - GENERAL ORD ERABLES Final Result [facility] [employer] [facility] [address] [place] [address] documented in this encounter Visit Diagnoses Not on filedocumented in this encounter
--- OUTSIDE RECORDS SUMMARY | 2025-05-01 14:46 | XMS_ITS | Encounter Summary ---
Author Organization [facility] Address [address] [place] [address] Care Team Providers Care Electronic Systems Security Assessment Name Role Phone Unavailable Primary Care Provider Unavailabl e Encounter Details Date Type Department Care Team (Late st Contact Info) Description 11/02/2019 Lab Requisition [facility] Laboratory Services [address] [place] [address] [facility] [place] [phone] [place] [address] [place] [address] Social History Tobacco Use Types Packs/Day Years Used Date Smoking Tobacco: Never Assessed Comments Unknown Sex and Gender Information Value Date Recorded Sex Assigned at Not on file Legal Sex Female 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 Gender Identity Not on file Sexual [...] - 4.5 mg/dL 11/02/2019 10:12 AM CDT [facility] [employer] [facility] Blood Collection / Unknown 11/02/2019 4:03 AM CDT 11/02/2019 9:51 AM CDT Elio Luevano MD CHEMISTRY ORDERABLES Final Resu lt Performing Organization Address [facility] Co de Phone Number [address] [address] * MAGNESIUM LEVEL (11/02/2019 4:03 AM CDT) Pathologist [facility] MAGNESIUM 2.3 1.6 - 2.4 mg/dL 11/02/2019 10:12 AM CDT [facility] Blood Collection / Unknown 11/02/2019 4:03 AM CDT 11/02/2019 9:51 AM CDT Elio Luevano MD CHEMISTRY ORDERABLES Final Resu lt Performing Organization Address [facility] de Phone Number [place] [phone] [place] [address] * (ABNORMAL) CBC WITH DIFFERENTIAL (11/02/2019 4:03 AM CDT) Pathologist [facility] WBC 13.2(H) 4.8 - 10.8 K/uL 11/02/2019 9:59 AM CDT [facility] RBC 3.19(L) 4.20 - 5.40 M/uL 11/02/2019 9:59 AM CDT [facility] HEMOGLOBIN 9.4(L) 12.0 - 16.0 g/dL 11/02/2019 9:59 AM CDT [facility] HEMATOCRIT 31.0(L) 36.0 - 46.0 % 11/02/2019 9:59 AM CDT [facility] MCV 97.2 84.0 - 103.0 fL 11/02/2019 9:59 AM CDT [facility] MCH 29.5 27.0 - 34.0 pg 11/02/2019 9:59 AM CDT [facility] MCHC 30.3 30.0 - 35.0 g/dL 11/02/2019 9:59 AM [facility] RDW 13.6 11.0 - 14.5 % 11/02/2019 9:59 AM [facility] RDW-STDEV 48.2 37.0 - 54.0 fL 11/02/2019 9:59 AM [facility] PLATELETS 248 140 - 440 K/uL 11/02/2019 9:59 AM [facility] MPV 10.0 8.9 - 12.8 fL 11/02/2019 9:59 AM [facility] NEUTROPHILS 76(H) 42 - 75 % 11/02/2019 9:59 AM [facility] LYMPHOCYTES 9(L) 24 - 44 % 11/02/2019 9:59 AM [facility] MONOCYTES 9 2 - 10 % 11/02/2019 9:59 AM [facility] EOSINOPHILS 4 0 - 7 % 11/02/2019 9:59 AM [facility] BASOPHILS 1 0 - 1 % 11/02/2019 9:59 AM [facility] IMMATURE GRANULOCYTES 1 0 - 2 % 11/02/2019 9:59 AM [facility] NEUTROPHIL ABSOLUTE 9.96(H) 2.00 - 8.00 K/uL 11/02/2019 9:59 AM [facility] LYMPHOCYTE ABSOLUTE 1.24 1.20 - 4.00 K/uL 11/02/2019 9:59 AM [facility] MONOCYTE ABSOLUTE 1.20(H) 0.10 - 0.60 K/uL 11/02/2019 9:59 AM [facility] EOSINOPHIL ABSOLUTE 0.52 0.00 - 0.70 K/uL 11/02/2019 9:59 AM [facility] BASOPHILS ABSOLUTE 0.09 0.00 - 0.20 K/uL 11/02/2019 9:59 AM [facility] IMMATURE GRANULOCYTES ABSOLUTE 0.14(H) 0.00 - 0.10 K/uL 11/02/2019 9:59 AM [facility] Blood Collection / Unknown 11/02/2019 4:03 AM CDT 11/02/2019 9:51 AM CDT us Elio Luevano MD HEMATOLOGY ORDERABLES Final Res ult [facility] [address] [place] [address] * (ABNORMAL) COMPREHENSIVE METABOLIC PANEL (11/02/2019 4:03 AM CDT) SODIUM 144 136 - 145 mmol/L 11/02/2019 10:12 AM CDT [facility] POTASSIUM 3.9 3.5 - 5.1 mmol/L 11/02/2019 10:12 AM CDT [facility] CHLORIDE 105 98 - 107 mmol/L 11/02/2019 10:12 AM CDT [facility] CO2 29 22 - 29 mmol/L 11/02/2019 10:12 AM T [facility] CALCIUM 8.3(L) 8.8 - 10.2 mg/dL 11/02/2019 10:12 AM T [facility] BUN 30(H) 8 - 23 mg/dL 11/02/2019 10:12 AM T [facility] CREATININE 1.06(H) 0.51 - 0.95 mg/dL 11/02/2019 10:12 AM T [facility] Comment:The GFR result is no t clinically significant on patients <18 or >70 years of age. GLUCOSE 114(H) 74 - 99 mg/dL 11/02/2019 10:12 AM CDT [facility] TOTAL PROTEIN 6.4 6.4 - 8.3 g/dL 11/02/2019 10:12 AM CDT [facility] ALBUMIN 2.8(L) 3.5 - 5.2 g/dL 11/02/2019 10:12 AM T [facility] BILIRUBIN TOTAL 0.7 0.2 - 1.0 mg/dL 11/02/2019 10:12 AM T [facility] ALKALINE PHOSPHATASE 116(H) 35 - 104 U/L 11/02/2019 10:12 AM [facility] AST 33 10 - 35 U/L 11/02/2019 10:12 AM [facility] ALT 20 <=35 U/L 11/02/2019 10:12 AM T [facility] GFR 51 mL/min/1. 73 sq meter 11/02/2019 10:12 AM T [facility] Comment: eGFR has not been validated [...] 73 sq meter 11/02/2019 10:12 AM T [facility] ANION GAP 10 9 - 20 mmol/L 11/02/2019 10:12 AM [facility] Blood Collection / Unknown 11/02/2019 4:03 AM CDT 11/02/2019 9:51 AM CDT us Elio Luevano MD CHEMISTRY ORDERABLES Final Resu lt [facility] [address] [place] [address] documented in this encounter Visit Diagnoses Not on filedocumented in this encounter
--- OUTSIDE RECORDS SUMMARY | 2025-05-01 14:46 | XMS_ITS | Encounter Summary ---
Author Organization [employer] [facility] Address [address] [place] [address] Care Team Providers Care Finished Cloth Examiner Name Role Phone Unavailable Primary Care Provider Unavailabl e Encounter Details Date Type Department Care Team (Late st Contact Info) Description 11/07/2019 Lab Requisition [facility] Laboratory Services [address] [place] [address] [place] [phone] [place] [address] [place] [address] Social History Tobacco Use Types Packs/Day Years Used Date Smoking Tobacco: Never Assessed Comments Unknown Sex and Gender Information Value Date Recorded Sex Assigned at Not on file 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 Result may be falsely elevated. CHLORIDE 101 98 - 107 mmol/L 11/07/2019 7:25 AM T [facility] CO2 29 22 - 29 mmol/L 11/07/2019 7:25 AM T [facility] CALCIUM 8.7(L) 8.8 - 10.2 mg/dL 11/07/2019 7:25 AM CDT [facility] BUN 25(H) 8 - 23 mg/dL 11/07/2019 7:25 AM T [facility] CREATININE 0.88 0.51 - 0.95 mg/dL 11/07/2019 7:25 AM T [facility] Comment:The GFR result is no t clinically significant on patients <18 or >70 years of age. GLUCOSE 107(H) 74 - 99 mg/dL 11/07/2019 7:25 AM CDT [facility] TOTAL PROTEIN 6.9 6.4 - 8.3 g/dL 11/07/2019 7:25 AM CDT [facility] ALBUMIN 3.2(L) 3.5 - 5.2 g/dL 11/07/2019 7:25 AM CDT [facility] BILIRUBIN TOTAL 0.4 0.2 - 1.0 mg/dL 11/07/2019 7:25 AM CDT [facility] ALKALINE PHOSPHATASE 111(H) 35 - 104 U/L 11/07/2019 7:25 AM T [facility] AST 37(H) 10 - 35 U/L 11/07/2019 7:25 AM CDT [facility] Comment:Hemolysis present. R esult may be falsely elevated. ALT 18 <=35 U/L 11/07/2019 7:25 AM T [facility] Comment:Hemolysis present. R esult may be falsely elevated. GFR >60 mL/min/1.7 3 sq meter 11/07/2019 7:25 AM T [facility] Comment: eGFR has not [...] 3 sq meter 11/07/2019 7:25 AM T [facility] ANION GAP 9 9 - 20 mmol/L 11/07/2019 7:25 AM [facility] Blood Collection / Unknown 11/07/2019 3:20 AM CDT 11/07/2019 7:10 AM CDT us Elio Luevano MD CHEMISTRY ORDERABLES Final Resu lt [facility] [address] [place] [address] * (ABNORMAL) CBC WITHOUT DIFFERENTIAL (11/07/2019 3:20 AM CDT) WBC 10.2 4.8 - 10.8 K/uL 11/07/2019 7:13 AM T [facility] RBC 3.13(L) 4.20 - 5.40 M/uL 11/07/2019 7:13 AM CDT [facility] HEMOGLOBIN 9.6(L) 12.0 - 16.0 g/dL 11/07/2019 7:13 AM CDT [facility] HEMATOCRIT 30.0(L) 36.0 - 46.0 % 11/07/2019 7:13 AM CDT [facility] MCV 95.8 84.0 - 103.0 fL 11/07/2019 7:13 AM CDT [facility] MCH 30.7 27.0 - 34.0 pg 11/07/2019 7:13 AM CDT [facility] MCHC 32.0 30.0 - 35.0 g/dL 11/07/2019 7:13 AM CDT [facility] PLATELETS 220 140 - 440 K/uL 11/07/2019 7:13 AM T [facility] MPV 10.5 8.9 - 12.8 fL 11/07/2019 7:13 AM [facility] RDW 14.6(H) 11.0 - 14.5 % 11/07/2019 7:13 AM [facility] RDW-STDEV 49.7 37.0 - 54.0 fL 11/07/2019 7:13 AM [facility] Blood Collection / Unknown 11/07/2019 3:20 AM CDT 11/07/2019 7:10 AM CDT us Elio Luevano MD HEMATOLOGY ORDERABLES Final Res ult [facility] [address] [place] [address] documented in this encounter Visit Diagnoses Not on filedocumented in this encounter
--- OUTSIDE RECORDS SUMMARY | 2025-05-01 14:46 | XMS_ITS | Encounter Summary ---
Author Organization [facility] Address [address] [place] [address] Care Team Providers Care Cork Molder Name Role Phone Unavailable Primary Care Provider Unavailabl e Encounter Details Date Type Department Care Team (Late st Contact Info) Description 11/19/2019 Lab Requisition [facility] Laboratory Services [address] [place] [address] [place] [phone] [place] [address] [place] [address] Social History Tobacco Use Types Packs/Day Years Used Date Smoking Tobacco: Never Assessed Comments Unknown Sex and Gender Information Value Date Recorded Sex Assigned at Not on file 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 Gender Identity Not on file Sexual [...] - 10.8 K/uL 11/19/2019 10:21 AM CDT [facility] LABORATORY [facility] RBC 2.94(L) 4.20 - 5.40 M/uL 11/19/2019 10:21 AM CDT [facility] LABORATORY [facility] HEMOGLOBIN 8.9(L) 12.0 - 16.0 g/dL 11/19/2019 10:21 AM CDT [facility] LABORATORY [facility] HEMATOCRIT 28.2(L) 36.0 - 46.0 % 11/19/2019 10:21 AM [facility] [employer] [facility] MCV 95.9 84.0 - 103.0 fL 11/19/2019 10:21 AM [facility] [employer] [facility] MCH 30.3 27.0 - 34.0 pg 11/19/2019 10:21 AM [facility] [employer] [facility] MCHC 31.6 30.0 - 35.0 g/dL 11/19/2019 10:21 AM [facility] [employer] [facility] RDW 15.9(H) 11.0 - 14.5 % 11/19/2019 10:21 AM [facility] [employer] [facility] RDW-STDEV 53.5 37.0 - 54.0 fL 11/19/2019 10:21 AM [facility] [employer] [facility] PLATELETS 138(L) 140 - 440 K/uL 11/19/2019 10:21 AM [facility] [employer] [facility] MPV 10.7 8.9 - 12.8 fL 11/19/2019 10:21 AM [facility] [employer] [facility] NEUTROPHILS 61 42 - 75 % 11/19/2019 10:21 AM [facility] [employer] [facility] LYMPHOCYTES 23(L) 24 - 44 % 11/19/2019 10:21 AM [facility] [employer] [facility] MONOCYTES 10 2 - 10 % 11/19/2019 10:21 AM [facility] [employer] [facility] EOSINOPHILS 4 0 - 7 % 11/19/2019 10:21 AM [facility] [employer] [facility] BASOPHILS 1 0 - 1 % 11/19/2019 10:21 AM [facility] [employer] [facility] IMMATURE GRANULOCYTES 1 0 - 2 % 11/19/2019 10:21 AM [facility] [employer] [facility] NEUTROPHIL ABSOLUTE 5.62 2.00 - 8.00 K/uL 11/19/2019 10:21 AM [facility] [employer] [facility] LYMPHOCYTE ABSOLUTE 2.16 1.20 - 4.00 K/uL 11/19/2019 10:21 AM [facility] [employer] [facility] MONOCYTE ABSOLUTE 0.95(H) 0.10 - 0.60 K/uL 11/19/2019 10:21 AM [facility] [employer] [facility] EOSINOPHIL ABSOLUTE 0.37 0.00 - 0.70 K/uL 11/19/2019 10:21 AM CDT [facility] BASOPHILS ABSOLUTE 0.07 0.00 - 0.20 K/uL 11/19/2019 10:21 AM CDT [facility] IMMATURE GRANULOCYTES ABSOLUTE 0.06 0.00 - 0.10 K/uL 11/19/2019 10:21 AM CDT [facility] Blood Collection / Unknown 11/19/2019 9:00 AM CDT 11/19/2019 9:24 AM CDT Narrative [facility] - 11/19/2019 10:21 AM CDT Fibrin on slide - platelet count may be higher than reported us Elio Luevano MD HEMATOLOGY ORDERABLES Final Res ult [facility] [address] [place] [address] documented in this encounter Visit Diagnoses Not on filedocumented in this encounter
--- OUTSIDE RECORDS SUMMARY | 2025-05-01 14:46 | XMS_ITS | Encounter Summary ---
Author Organization [facility] Address [address] [place] [address] Care Team Providers Care Reinforcing Rod Layer Name Role Phone Unavailable Primary Care Provider Unavailabl e Encounter Details Date Type Department Care Team (Latest Contact Info) Description 06/14/[address] 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
--- OUTSIDE RECORDS SUMMARY | 2025-05-01 14:46 | XMS_ITS | Encounter Summary ---
Author Organization [facility] Address [address] [place] [address] Care Team Providers Care Quality Nurse Name Role Phone Unavailable Primary Care Provider Unavailabl e Encounter Details Date Type Department Care Team (Latest Contact Info) Description 10/07/1999 Outpatient Historical [facility] Family Medicine [place] [address] [phone] Pavel Montoya MD NO ADDRESS ON FILE Impacted cerumen (Primary Dx); Dermatophytosis of foot Social History Tobacco Use Types Packs/Day Years Used Date Smoking Tobacco: Never Assessed Comments Unknown Sex and Gender Information Value Date Recorded Sex Assigned at Not on file Legal Sex Female 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
--- OUTSIDE RECORDS SUMMARY | 2025-05-01 14:46 | XMS_ITS | Encounter Summary ---
Author Organization [facility] Address [address] [place] [address] Care Team Providers Care Workday Manager Name Role Phone Unavailable Primary Care Provider Unavailabl e Encounter Details Date Type Department Care Team (Latest Contact Info) Description 04/29/1999 Outpatient Historical [facility] Family Medicine [place] [id number] [phone] Venecia March, DO [address] [place] [address] Acute sinusitis, unspecified (Primary Dx); Acute bronchitis Social History Tobacco Use Types Packs/Day Years Used Date Smoking Tobacco: Never Assessed Comments Unknown Sex and Gender Information Value Date Recorded Sex Assigned at Not on file Legal Sex Female 3:20 AM PARER Gender Identity Not on file Sexual Orientation Not on file documented as of this encounter Plan of Treatment Not on file documented as of this encounter Visit Diagnoses Diagnosis Acute sinusitis, unspecified- Primary Acute bronchitis documented in this encounter
--- OUTSIDE RECORDS SUMMARY | 2025-05-01 14:46 | XMS_ITS | Encounter Summary ---
Author Organization [facility] Address [address] [place] [address] Care Team Providers Care Rope Coiling Machine Operator Name Role Phone Unavailable Primary Care Provider Unavailabl e Encounter Details Date Type Department Care Team (Latest Contact Info) Description 02/06/1998 Outpatient Historical [facility] Family Medicine [place] [address] [phone] Pavel Montoya MD NO ADDRESS ON FILE Other disorders of Eustachian tube(381.89) (Primary Dx) Social History Tobacco Use Types Packs/Day Years Used Date Smoking Tobacco: Never Assessed Comments Unknown Sex and Gender Information Value Date Recorded Sex Assigned at Not on file Legal 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
--- OUTSIDE RECORDS SUMMARY | 2025-05-01 14:46 | XMS_ITS | Encounter Summary ---
Author Organization [facility] Address [address] [place] [address] Care Team Providers Care Marine Firer Name Role Phone Unavailable Primary Care Provider Unavailabl e Encounter Details Date Type Department Care Team (Latest Contact Info) Description 06/28/1998 Outpatient Historical [facility] Family Medicine [place] [address] [phone] Pavel Montoya MD NO ADDRESS ON FILE Throat pain (Primary Dx) Social History Tobacco Use Types Packs/Day Years Used Date Smoking Tobacco: Never Assessed Comments Unknown Sex and Gender Information Value Date Recorded Sex Assigned at Not on file Legal Sex Female 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
--- OUTSIDE RECORDS SUMMARY | 2025-05-01 14:46 | XMS_ITS | Encounter Summary ---
Author Organization [facility] Address [address] [place] [address] Care Team Providers Care Plate Take Out Worker Name Role Phone Unavailable Primary Care Provider Unavailabl e Encounter Details Date Type Department Care Team (Late st Contact Info) Description 11/17/2019 Lab Requisition [facility] Laboratory Services [address] [place] [address] [place] [phone] [place] [address] [place] [address] Social History Tobacco Use Types Packs/Day Years Used Date Smoking Tobacco: Never Assessed Comments Unknown Sex and Gender Information Value Date Recorded Sex Assigned at Not on file Legal Sex Female 3:20 AM TRANSITION OF CARE SPECIALIST Gender Identity Not on file Sexual [...] - 2.4 mg/dL 11/17/2019 6:37 AM CDT [facility] Blood Collection / Unknown 11/17/2019 4:53 AM CDT 11/17/2019 6:03 AM CDT us Elio Luevano MD CHEMISTRY ORDERABLES Final Resu lt [facility] [address] [place] [address] * (ABNORMAL) COMPREHENSIVE METABOLIC PANEL (11/17/2019 4:53 AM CDT) SODIUM 140 136 - 145 mmol/L 11/17/2019 6:37 AM CDT [facility] POTASSIUM 4.0 3.5 - 5.1 mmol/L 11/17/2019 6:37 AM CDT [facility] CHLORIDE 104 98 - 107 mmol/L 11/17/2019 6:37 AM CDT [facility] CO2 23 22 - 29 mmol/L 11/17/2019 6:37 AM CDT [facility] CALCIUM 8.8 8.8 - 10.2 mg/dL 11/17/2019 6:37 AM T [facility] BUN 22 8 - 23 mg/dL 11/17/2019 6:37 AM T [facility] CREATININE 1.06(H) 0.51 - 0.95 mg/dL 11/17/2019 6:37 AM T [facility] Comment:The GFR result is no t clinically significant on patients <18 or >70 years of age. GLUCOSE 114(H) 74 - 99 mg/dL 11/17/2019 6:37 AM CDT [facility] TOTAL PROTEIN 7.0 6.4 - 8.3 g/dL 11/17/2019 6:37 AM T [facility] ALBUMIN 3.4(L) 3.5 - 5.2 g/dL 11/17/2019 6:37 AM CDT [facility] BILIRUBIN TOTAL 0.4 0.2 - 1.0 mg/dL 11/17/2019 6:37 AM CDT [facility] ALKALINE PHOSPHATASE 136(H) 35 - 104 U/L 11/17/2019 6:37 AM T [facility] AST 33 10 - 35 U/L 11/17/2019 6:37 AM CDT [facility] ALT 26 <=35 U/L 11/17/2019 6:37 AM CDT [facility] GFR 51 mL/min/1. 73 sq meter 11/17/2019 6:37 AM CDT [facility] Comment: eGFR has not been [...] 73 sq meter 11/17/2019 6:37 AM CDT [facility] ANION GAP 13 9 - 20 mmol/L 11/17/2019 6:37 AM T [facility] Blood Collection / Unknown 11/17/2019 4:53 AM CDT 11/17/2019 6:03 AM CDT us Elio Luevano MD CHEMISTRY ORDERABLES Final Resu lt [facility] [address] [place] [address] * (ABNORMAL) CBC WITHOUT DIFFERENTIAL (11/17/2019 4:53 AM CDT) WBC 11.5(H) 4.8 - 10.8 K/uL 11/17/2019 6:34 AM CDT [facility] RBC 2.97(L) 4.20 - 5.40 M/uL 11/17/2019 6:34 AM CDT [facility] HEMOGLOBIN 9.1(L) 12.0 - 16.0 g/dL 11/17/2019 6:34 AM CDT [facility] HEMATOCRIT 28.8(L) 36.0 - 46.0 % 11/17/2019 6:34 AM CDT [facility] MCV 97.0 84.0 - 103.0 fL 11/17/2019 6:34 AM CDT [facility] MCH 30.6 27.0 - 34.0 pg 11/17/2019 6:34 AM CDT [facility] MCHC 31.6 30.0 - 35.0 g/dL 11/17/2019 6:34 AM CDT [facility] PLATELETS 191 140 - 440 K/uL 11/17/2019 6:34 AM CDT [facility] MPV 10.7 8.9 - 12.8 fL 11/17/2019 6:34 AM CDT [facility] RDW 15.7(H) 11.0 - 14.5 % 11/17/2019 6:34 AM CDT [facility] RDW-STDEV 53.2 37.0 - 54.0 fL 11/17/2019 6:34 AM T [facility] Blood Collection / Unknown 11/17/2019 4:53 AM CDT 11/17/2019 6:03 AM CDT us Elio Luevano MD HEMATOLOGY ORDERABLES Final Res ult [facility] [address] [place] [address] documented in this encounter Visit Diagnoses Not on filedocumented in this encounter
--- OUTSIDE RECORDS SUMMARY | 2025-05-01 14:46 | XMS_ITS | Encounter Summary ---
Author Organization [facility] Address [address] [place] [address] Care Team Providers Care Hazardous Waste Technician Name Role Phone Unavailable Primary Care Provider Unavailabl e Encounter Details Date Type Department Care Team (Late st Contact Info) Description 11/11/2019 Lab Requisition [facility] Laboratory Services [address] [place] [address] 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 Gender Identity Not on file Sexual Orientation [...] - 145 mmol/L 11/11/2019 6:36 AM CDT [facility] POTASSIUM 4.1 3.5 - 5.1 mmol/L 11/11/2019 6:36 AM CDT [facility] CHLORIDE 102 98 - 107 mmol/L 11/11/2019 6:36 AM CDT [facility] CO2 30(H) 22 - 29 mmol/L 11/11/2019 6:36 AM T [facility] CALCIUM 9.0 8.8 - 10.2 mg/dL 11/11/2019 6:36 AM CDT [facility] BUN 26(H) 8 - 23 mg/dL 11/11/2019 6:36 AM T [facility] CREATININE 0.97(H) 0.51 - 0.95 mg/dL 11/11/2019 6:36 AM T [facility] Comment:The GFR result is no t clinically significant on patients <18 or >70 years of age. GLUCOSE 157(H) 74 - 99 mg/dL 11/11/2019 6:36 AM T [facility] GFR 56 mL/min/1. 73 sq meter 11/11/2019 6:36 AM T [facility] Comment: eGFR has [...] 73 sq meter 11/11/2019 6:36 AM CDT [facility] ANION GAP 8(L) 9 - 20 mmol/L 11/11/2019 6:36 AM T [facility] Blood Collection / Unknown 11/11/2019 5:02 AM CDT 11/11/2019 5:50 AM CDT us Cristiane Minor NP CHEMISTRY ORDERABLES Final Resu lt [facility] [address] [place] [address] * (ABNORMAL) CBC WITH DIFFERENTIAL (11/11/2019 5:02 AM CDT) [facility] WBC 8.3 4.8 - 10.8 K/uL 11/11/2019 6:12 AM T [facility] RBC 2.88(L) 4.20 - 5.40 M/uL 11/11/2019 6:12 AM [facility] HEMOGLOBIN 8.6(L) 12.0 - 16.0 g/dL 11/11/2019 6:12 AM T [facility] HEMATOCRIT 27.3(L) 36.0 - 46.0 % 11/11/2019 6:12 AM [facility] MCV 94.8 84.0 - 103.0 fL 11/11/2019 6:12 AM [facility] MCH 29.9 27.0 - 34.0 pg 11/11/2019 6:12 AM [facility] MCHC 31.5 30.0 - 35.0 g/dL 11/11/2019 6:12 AM [facility] RDW 14.4 11.0 - 14.5 % 11/11/2019 6:12 AM [facility] RDW-STDEV 49.5 37.0 - 54.0 fL 11/11/2019 6:12 AM [facility] PLATELETS 171 140 - 440 K/uL 11/11/2019 6:12 AM [facility] MPV 10.9 8.9 - 12.8 fL 11/11/2019 6:12 AM [facility] NEUTROPHILS 60 42 - 75 % 11/11/2019 6:12 AM [facility] LYMPHOCYTES 17(L) 24 - 44 % 11/11/2019 6:12 AM T [facility] MONOCYTES 15(H) 2 - 10 % 11/11/2019 6:12 AM [facility] EOSINOPHILS 7 0 - 7 % 11/11/2019 6:12 AM [facility] BASOPHILS 1 0 - 1 % 11/11/2019 6:12 AM T [facility] IMMATURE GRANULOCYTES 1 0 - 2 % 11/11/2019 6:12 AM CDT [facility] NEUTROPHIL ABSOLUTE 5.04 2.00 - 8.00 K/uL 11/11/2019 6:12 AM CDT [facility] LYMPHOCYTE ABSOLUTE 1.43 1.20 - 4.00 K/uL 11/11/2019 6:12 AM CDT [facility] MONOCYTE ABSOLUTE 1.23(H) 0.10 - 0.60 K/uL 11/11/2019 6:12 AM CDT [facility] EOSINOPHIL ABSOLUTE 0.54 0.00 - 0.70 K/uL 11/11/2019 6:12 AM CDT [facility] BASOPHILS ABSOLUTE 0.05 0.00 - 0.20 K/uL 11/11/2019 6:12 AM CDT [facility] IMMATURE GRANULOCYTES ABSOLUTE 0.04 0.00 - 0.10 K/uL 11/11/2019 6:12 AM CDT [facility] Blood Collection / Unknown 11/11/2019 5:02 AM CDT 11/11/2019 5:50 AM CDT us Cristiane Minor NP HEMATOLOGY ORDERABLES Final Res ult [facility] [address] [place] [address] documented in this encounter Visit Diagnoses Not on filedocumented in this encounter
--- OUTSIDE RECORDS SUMMARY | 2025-05-01 14:46 | XMS_ITS | Encounter Summary ---
Author Organization [facility] Address [address] [place] [address] Care Team Providers Care Vascular Technologist Sonographer Name Role Phone Unavailable Primary Care Provider Unavailabl e Encounter Details Date Type Department Care Team (Latest Contact Info) Description 01/15/2000 Outpatient Historical [facility] Family Medicine [place] [address] [phone] Venecia March, DO [address] [place] [address] Unspecified essential hypertension (Primary Dx); Esophageal reflux; Allergic rhinitis, cause unspecified Social History Tobacco Use Types Packs/Day Years Used Date Smoking Tobacco: Never Assessed Comments Unknown Sex and Gender Information Value Date Recorded Sex Assigned at Not on file Legal Sex Female 3:20 AM SCIENCE INTERN Gender Identity Not on file Sexual Orientation Not on file documented as of this encounter Plan of Treatment Not on file documented as of this encounter Visit Diagnoses Diagnosis Unspecified essential hypertension- Primary Esophageal reflux Allergic rhinitis, cause unspecified documented in this encounter
--- OUTSIDE RECORDS SUMMARY | 2025-05-01 14:46 | XMS_ITS | Encounter Summary ---
Author Organization [facility] Address [address] [place] [address] Care Team Providers Care Rn Intake Name Role Phone Unavailable Primary Care Provider Unavailabl e Encounter Details Date Type Department Care Team (Latest Contact Info) Description 12/04/1999 Outpatient Historical [facility] Family Medicine [place] [id number] [phone] Venecia March, DO [address] [place] [address] Abdominal pain, epigastric (Primary Dx); Unspecified hemorrhoids without mention of complication Social History Tobacco Use Types Packs/Day Years Used Date Smoking Tobacco: Never Assessed Comments Unknown Sex and Gender Information Value Date Recorded Sex Assigned at Not on file Legal 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
--- OUTSIDE RECORDS SUMMARY | 2025-05-01 14:46 | XMS_ITS | Encounter Summary ---
Author Organization [facility] Address [address] [place] [address] Care Team Providers Care Slate Roofer Name Role Phone Unavailable Primary Care Provider Unavailabl e Encounter Details Date Type Department Care Team (Late st Contact Info) Description 11/17/2019 Lab Requisition [facility] Laboratory Services [address] [place] [address] [place] [phone] Kathrine Toney, EMBROIDERER HAND NO ADDRESS ON FILE Social History Tobacco Use Types Packs/Day Years Used Date Smoking Tobacco: Never Assessed Comments Unknown Sex and Gender Information Value Date Recorded Sex Assigned at Not on file Legal 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 Due to the current public health emergency, [facility] is receiving a high volume of samples [...] about COVID-19 can be found at the [facility] website: www..[employer]/Covid19. Upper Respiratory ENTIRE NASOPHARYNX / Unknown Collection / Unknown 11/17/2019 6:11 PM CDT 11/17/2019 8:21 PM CDT Narrative [facility] - 11/19/2019 5:38 AM CDT Performing Organization Information: Site ID: [id number] Name: [facility] Address: [address] [address] Director: Guerrero Bland D.O., MPH Kathrine FERNANDEZ MICROBIOLOGY - GENERAL CHARMAINE PAYAN Final Result [facility] [phone] documented in this encounter Visit Diagnoses Not on filedocumented in this encounter
--- OUTSIDE RECORDS SUMMARY | 2025-05-01 14:46 | XMS_ITS | Encounter Summary ---
Author Organization [facility] Address [address] [place] [address] Care Team Providers Care Icing Mixer Name Role Phone Unavailable Primary Care Provider Unavailabl e Encounter Details Date Type Department Care Team (Latest Contact Info) Description 02/17/2000 Outpatient Historical [facility] Family Medicine [place] [id number] [phone] Venecia March, DO [address] [place] [address] Esophageal reflux (Primary Dx); Unspecified essential hypertension; Unspecified hemorrhoids without mention of complication Social History Tobacco Use Types Packs/Day Years Used Date Smoking Tobacco: Never Assessed Comments Unknown Sex and Gender Information Value Date Recorded Sex Assigned at Not on file Legal Sex Female 3:20 AM GUM REMOVER Gender Identity Not on file Sexual Orientation Not on file documented as of this encounter Plan of Treatment Not on file documented as of this encounter Visit Diagnoses Diagnosis Esophageal reflux- Primary Unspecified essential hypertension Unspecified hemorrhoids without mention of complication documented in this encounter
--- OUTSIDE RECORDS SUMMARY | 2025-05-01 14:46 | XMS_ITS | Encounter Summary ---
Author Organization [facility] Address [address] [place] [address] Care Team Providers Care J2Ee Developer Name Role Phone Unavailable Primary Care Provider Unavailabl e Encounter Details Date Type Department Care Team (Latest Contact Info) Description 12/10/1999 Outpatient Historical [facility] Family Medicine [place] [id number] [phone] Venecia March, DO [address] [place] [address] Abdominal pain, unspecified site (Primary Dx); Unspecified essential hypertension Social History Tobacco Use Types Packs/Day Years Used Date Smoking Tobacco: Never Assessed Comments Unknown Sex and Gender Information Value Date Recorded Sex Assigned at Not on file Legal 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
--- OUTSIDE RECORDS SUMMARY | 2025-05-01 14:46 | XMS_ITS | Encounter Summary ---
Author Organization [facility] Address [address] [place] [address] Care Team Providers Care Filler In Name Role Phone Unavailable Primary Care Provider Unavailabl e Encounter Details Date Type Department Care Team (Late st Contact Info) Description 11/10/2019 Lab Requisition [facility] Laboratory Services [address] [place] [address] [place] [phone] [place] [address] [place] [address] Social History Tobacco Use Types Packs/Day Years Used Date Smoking Tobacco: Never Assessed Comments Unknown Sex and Gender Information Value Date Recorded Sex Assigned at Not on file Legal 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 [address] [place] [address] * (ABNORMAL) COMPREHENSIVE METABOLIC PANEL (11/10/2019 4:04 AM CDT) SODIUM 138 136 - 145 mmol/L 11/10/2019 6:[address] [facility] POTASSIUM 3.8 3.5 - 5.1 mmol/L 11/10/2019 6:[address] [facility] CHLORIDE 100 98 - 107 mmol/L 11/10/2019 6:[address] [facility] CO2 26 22 - 29 mmol/L 11/10/2019 6:[address] [facility] CALCIUM 9.1 8.8 - 10.2 mg/dL 11/10/2019 6:[address] [facility] BUN 28(H) 8 - 23 mg/dL 11/10/2019 6:[address] [facility] CREATININE 0.89 0.51 - 0.95 mg/dL 11/10/2019 6:[address] [facility] Comment:The GFR result is no t clinically significant on patients <18 or >70 years of age. GLUCOSE 146(H) 74 - 99 mg/dL 11/10/2019 6:[address] [facility] TOTAL PROTEIN 6.8 6.4 - 8.3 g/dL 11/10/2019 6:[address] [facility] ALBUMIN 3.2(L) 3.5 - 5.2 g/dL 11/10/2019 6:[address] [facility] BILIRUBIN TOTAL 0.4 0.2 - 1.0 mg/dL 11/10/2019 6:[address] [facility] ALKALINE PHOSPHATASE 148(H) 35 - 104 U/L 11/10/2019 6:56 AM T [facility] AST 29 10 - 35 U/L 11/10/2019 6:[address] [facility] ALT 17 <=35 U/L 11/10/2019 6:[address] [facility] GFR >60 mL/min/1.7 3 sq meter 11/10/2019 6:[address] [facility] Comment: eGFR has not been [...] 3 sq meter 11/10/2019 6:[address] [facility] ANION GAP 12 9 - 20 mmol/L 11/10/2019 6:[address] [facility] Blood Collection / Unknown 11/10/2019 4:04 AM CDT 11/10/2019 6:23 AM CDT us Elio Luevano MD CHEMISTRY ORDERABLES Final Resu lt Performing Organization Address City/State/[facility] Co de Phone Number [facility] [address] [place] [address] * (ABNORMAL) CBC WITHOUT DIFFERENTIAL (11/10/2019 4:04 AM CDT) WBC 15.3(H) 4.8 - 10.8 K/uL 11/10/2019 6:[address] [facility] RBC 3.15(L) 4.20 - 5.40 M/uL 11/10/2019 6:[address] [facility] HEMOGLOBIN 9.2(L) 12.0 - 16.0 g/dL 11/10/2019 6:[address] [facility] HEMATOCRIT 29.1(L) 36.0 - 46.0 % 11/10/2019 6:[address] [facility] MCV 92.4 84.0 - 103.0 fL 11/10/2019 6:[address] [facility] MCH 29.2 27.0 - 34.0 pg 11/10/2019 6:[address] [facility] MCHC 31.6 30.0 - 35.0 g/dL 11/10/2019 6:[address] [facility] PLATELETS 191 140 - 440 K/uL 11/10/2019 6:[address] [facility] MPV 10.7 8.9 - 12.8 fL 11/10/2019 6:[address] [facility] RDW 14.4 11.0 - 14.5 % 11/10/2019 6:[address] [facility] RDW-STDEV 47.8 37.0 - 54.0 fL 11/10/2019 6:[address] [facility] Blood Collection / Unknown 11/10/2019 4:04 AM CDT 11/10/2019 6:23 AM CDT us Elio Luevano MD HEMATOLOGY ORDERABLES Final Res ult [facility] [address] [place] [address] documented in this encounter Visit Diagnoses Not on filedocumented in this encounter
--- OUTSIDE RECORDS SUMMARY | 2025-05-01 14:46 | XMS_ITS | Clinical Summary ---
Author Organization [facility] Address [address] [place] [address] Phone Care Team Providers Care Air Brake Tester Name Role Phone Mandeep Madrigal MD Primary Care Provider [phone] Allergies No known active allergies Medications albuterol (PROVENTIL,VENTOL IN) 2.5 mg /3 mL (0.083 %) Solution for Nebulization Take 1 mL by inhalation every 6 hours as needed for Shortness of Breath. Active fluticasone propionate (FLONASE) 50 mcg/spray [place], Suspension nasal inhaler Administer 2 Sprays in [...] alcohol) LAST DRINK WAS 2 YEARS AGO [facility] Dopplrities Answer Date Recorded In the past 12 months has [employer], gas, oil, or water [employer] threatened to shut off services in your [...] often do you attend chur ch or pentecostal services? 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 Gender Identity Not on file Sexual [...] (#1) 2024 Insurance UHC DUAL COMPLETE [place] [facility] [id number] MEDICAID [place] Advance Directives For more information, please contact: [phone] Documents on File Type Date Recorded Patient Hotel Services Supervisor Expl anation Advance Directive POA 08/31/2023 3:50 PM Ad coats Directive POA Advance Directive POA 08/24/2023 7:00 PM * Full Code (Latest Code Status on File) Date Activated Date Inactivated Comments 09/05/2023 2:42 AM 09/09/2023 4:05 PM * Default Full Code - Needs Discussion Date Activated Date Inactivated Comments 08/23/2023 3:19 PM 08/26/2023 7:42 PM Care Teams Air Brake Tester Relationship Specialty Start Date End Date Mandeep Madrigal MD [address] [address] PCP - General Family Practice 09/05/23
--- OUTSIDE RECORDS SUMMARY | 2025-05-01 14:46 | XMS_ITS | Encounter Summary ---
Author Organization [employer] [facility] Address [address] Hernandez: [place] [address] Care Team Providers Care Stage Set Up Worker Name Role Phone Unavailable Primary Care [...] file Legal Sex Female 3:20 AM MEDICAL OBSERVER Gender Identity Not on file Sexual Orientation Not on file documented as of this encounter Plan of Treatment Not on file documented as of this encounter Visit Diagnoses Not on filedocumented in this encounter
--- OUTSIDE RECORDS SUMMARY | 2025-05-01 14:46 | XMS_ITS | Encounter Summary ---
Author Organization [facility] Address [address] [place] [address] Care Team Providers Care Log Hooker Name Role Phone Unavailable Primary Care Provider Unavailabl e Encounter Details Date Type Department Care Team (Latest Contact Info) Description 08/19/1999 Outpatient Historical [facility] Family Medicine [place] [address] [phone] Pavel Montoya MD NO ADDRESS ON FILE Osteoarthrosis, unspecified whether generalized or localized, unspecified site (Primary Dx); Unspecified endocrine disorder; Other hammer toe (acquired) Social History Tobacco Use Types Packs/Day Years Used Date Smoking Tobacco: Never Assessed Comments Unknown Sex and Gender Information Value Date Recorded Sex Assigned at Not on file Legal Sex Female 3:20 AM ISSUE CLERK Gender Identity Not on file Sexual Orientation Not on file documented as of this encounter Plan of Treatment Not on file documented as of this encounter Visit Diagnoses Diagnosis Osteoarthrosis, unspecified whether generalized or localized, unspecified site- Primary Unspecified endocrine disorder Other hammer toe (acquired) documented in this encounter
--- OUTSIDE RECORDS SUMMARY | 2025-05-01 14:46 | XMS_ITS | Encounter Summary ---
Author Organization [facility] Address [address] [place] [address] Care Team Providers Care Supplier Quality Manager Name Role Phone Unavailable Primary Care Provider Unavailabl e Encounter Details Date Type Department Care Team (Latest Contact Info) Description 12/15/2001 Outpatient Historical [facility] [place] [address] [facility] [address] [place] [phone] Augustin Can MD GASTRITIS NEC W/O HEMORRH (Primary Dx) Social History Tobacco Use Types Packs/Day Years Used Date Smoking Tobacco: Never Assessed Comments Unknown Sex and Gender Information Value Date Recorded Sex Assigned at Not on file Legal Sex Female 3:[address] ORDER TAKER Gender Identity Not on file Sexual Orientation Not on file documented as of this encounter Plan of Treatment Not on file documented as of this encounter Visit Diagnoses Diagnosis Other specified gastritis without mention of hemorrhage- Primary documented in this encounter
--- OUTSIDE RECORDS SUMMARY | 2025-05-01 14:46 | XMS_ITS | Encounter Summary ---
Author Organization [employer] [facility] Address [address] 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
--- OUTSIDE RECORDS SUMMARY | 2025-05-01 14:46 | XMS_ITS | Clinical Summary ---
Author Organization [facility] Address [address] Hernandez: [place] [address] Care Team Providers Care Systems Test Analyst Name Role Phone Unavailable Primary Care Provider Unavailabl e Social History Tobacco Use Types Packs/Day Years Used Date Smoking Tobacco: Never Assessed Comments Unknown Sex and Gender Information Value Date Recorded Sex Assigned at Not on file Legal Sex Female 3:20 AM GREEN BELT Gender Identity Not on file Sexual Orientation [...]
--- OUTSIDE RECORDS SUMMARY | 2025-05-01 14:46 | XMS_ITS | Encounter Summary ---
Author Organization [facility] Address [address] [place] [address] Care Team Providers Care Supervisor Grips Name Role Phone Unavailable Primary Care Provider Unavailabl e Encounter Details Date Type Department Care Team (Late st Contact Info) Description 11/19/2019 Lab Requisition [facility] Laboratory Services [address] [place] [address] [place] [phone] Kathrine Toney, PRORATE CLERK NO ADDRESS ON FILE Social History Tobacco Use Types Packs/Day Years Used Date Smoking Tobacco: Never Assessed Comments Unknown Sex and Gender Information Value Date Recorded Sex Assigned at Not on file Legal Sex Female 3: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
--- OUTSIDE RECORDS SUMMARY | 2025-05-01 14:46 | XMS_ITS | Encounter Summary ---
Author Organization [facility] Address [address] [place] [address] Care Team Providers Care Kiln Tender Name Role Phone Unavailable Primary Care Provider Unavailabl e Encounter Details Date Type Department Care Team (Late st Contact Info) Description 11/19/2019 Lab Requisition [facility] Laboratory Services [address] [place] [address] [place] [phone] [place] [address] [place] [address] Social History Tobacco Use Types Packs/Day Years Used Date Smoking Tobacco: Never Assessed Comments Unknown Sex and Gender Information Value Date Recorded Sex Assigned at Not on file Legal Sex Female 3:20 AM STOCK MOVER Gender Identity Not on file Sexual Orientation Not on file documented as of this encounter Plan of Treatment Not on file documented as of this encounter Visit Diagnoses Not on filedocumented in this encounter
--- OUTSIDE RECORDS SUMMARY | 2025-05-01 14:46 | XMS_ITS | Encounter Summary ---
Author Organization [employer] [facility] Address [address] [place] [address] Care Team Providers Care Director Product Management Name Role Phone Unavailable Primary Care Provider Unavailabl e Encounter Details Date Type Department Care Team (Late st Contact Info) Description 11/14/2019 Lab Requisition 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 FORMING PROCESS WORKER Gender Identity Not on file Sexual [...] - 2.4 mg/dL 11/14/2019 6:46 AM CDT [facility] [employer] [facility] Blood Collection / Unknown 11/14/2019 4:40 AM CDT 11/14/2019 5:56 AM CDT us Elio Luevano MD CHEMISTRY ORDERABLES Final Resu lt [facility] [address] [place] [address] * (ABNORMAL) COMPREHENSIVE METABOLIC PANEL (11/14/2019 4:40 AM CDT) SODIUM 138 136 - 145 mmol/L 11/14/2019 6:46 AM CDT [facility] POTASSIUM 3.6 3.5 - 5.1 mmol/L 11/14/2019 6:46 AM CDT [facility] CHLORIDE 99 98 - 107 mmol/L 11/14/2019 6:46 AM CDT [facility] CO2 29 22 - 29 mmol/L 11/14/2019 6:46 AM CDT [facility] CALCIUM 8.8 8.8 - 10.2 mg/dL 11/14/2019 6:46 AM CDT [facility] BUN 23 8 - 23 mg/dL 11/14/2019 6:46 AM CDT [facility] CREATININE 1.10(H) 0.51 - 0.95 mg/dL 11/14/2019 6:46 AM CDT [facility] Comment:The GFR result is no t clinically significant on patients <18 or >70 years of age. GLUCOSE 150(H) 74 - 99 mg/dL 11/14/2019 6:46 AM CDT [facility] TOTAL PROTEIN 6.3(L) 6.4 - 8.3 g/dL 11/14/2019 6:46 AM CDT [facility] ALBUMIN 3.1(L) 3.5 - 5.2 g/dL 11/14/2019 6:46 AM CDT [facility] BILIRUBIN TOTAL 0.3 0.2 - 1.0 mg/dL 11/14/2019 6:46 AM CDT [facility] ALKALINE PHOSPHATASE 157(H) 35 - 104 U/L 11/14/2019 6:46 AM CDT [facility] AST 34 10 - 35 U/L 11/14/2019 6:46 AM CDT [facility] ALT 27 <=35 U/L 11/14/2019 6:46 AM CDT [facility] GFR 49 mL/min/1. 73 sq meter 11/14/2019 6:46 AM CDT [facility] Comment: eGFR has not been validated for [...] sq meter 11/14/2019 6:46 AM CDT [facility] ANION GAP 10 9 - 20 mmol/L 11/14/2019 6:46 AM T [facility] Blood Collection / Unknown 11/14/2019 4:40 AM CDT 11/14/2019 5:56 AM CDT us Elio Luevano MD CHEMISTRY ORDERABLES Final Resu lt [facility] [address] [place] [address] * (ABNORMAL) CBC WITHOUT DIFFERENTIAL (11/14/2019 4:40 AM CDT) WBC 7.7 4.8 - 10.8 K/uL 11/14/2019 6:15 AM CDT [facility] RBC 2.63(L) 4.20 - 5.40 M/uL 11/14/2019 6:15 AM CDT [facility] HEMOGLOBIN 8.2(L) 12.0 - 16.0 g/dL 11/14/2019 6:15 AM CDT [facility] HEMATOCRIT 25.1(L) 36.0 - 46.0 % 11/14/2019 6:15 AM CDT [facility] MCV 95.4 84.0 - 103.0 fL 11/14/2019 6:15 AM CDT [facility] MCH 31.2 27.0 - 34.0 pg 11/14/2019 6:15 AM CDT [facility] MCHC 32.7 30.0 - 35.0 g/dL 11/14/2019 6:15 AM CDT [facility] PLATELETS 151 140 - 440 K/uL 11/14/2019 6:15 AM CDT [facility] MPV 11.0 8.9 - 12.8 fL 11/14/2019 6:15 AM T [facility] RDW 14.7(H) 11.0 - 14.5 % 11/14/2019 6:15 AM CDT [facility] RDW-STDEV 50.9 37.0 - 54.0 fL 11/14/2019 6:15 AM T [facility] Blood Collection / Unknown 11/14/2019 4:40 AM CDT 11/14/2019 5:56 AM CDT us Elio Luevano MD HEMATOLOGY ORDERABLES Final Res ult [facility] [address] [place] [address] documented in this encounter Visit Diagnoses Not on filedocumented in this encounter
--- OUTSIDE RECORDS SUMMARY | 2025-05-01 14:46 | XMS_ITS | Encounter Summary ---
Author Organization [facility] Address [address] [place] [address] Care Team Providers Care German Professor Name Role Phone Unavailable Primary Care Provider Unavailabl e Encounter Details Date Type Department Care Team (Late st Contact Info) Description 11/09/2019 Lab Requisition [facility] Laboratory Services [address] [place] [address] Cristiane Minor NP [address] [place] [address] Social History Tobacco Use Types Packs/Day Years Used Date Smoking Tobacco: Never Assessed Comments Unknown Sex and Gender Information Value Date Recorded Sex Assigned at Not on file Legal Sex Female 3:20 AM ANIMAL SURGEON Gender Identity Not on file Sexual Orientation [...] - 145 mmol/L 11/09/2019 6:27 AM CDT [facility] POTASSIUM 4.2 3.5 - 5.1 mmol/L 11/09/2019 6:27 AM CDT [facility] CHLORIDE 101 98 - 107 mmol/L 11/09/2019 6:27 AM CDT [facility] CO2 29 22 - 29 mmol/L 11/09/2019 6:27 AM CDT [facility] CALCIUM 9.0 8.8 - 10.2 mg/dL 11/09/2019 6:27 AM CDT [facility] BUN 28(H) 8 - 23 mg/dL 11/09/2019 6:27 AM [facility] CREATININE 0.90 0.51 - 0.95 mg/dL 11/09/2019 6:27 AM T [facility] Comment:The GFR result is no t clinically significant on patients <18 or >70 years of age. GLUCOSE 156(H) 74 - 99 mg/dL 11/09/2019 6:27 AM T [facility] GFR >60 mL/min/1.7 3 sq meter 11/09/2019 6:27 AM T [facility] Comment: eGFR has not been [...] 3 sq meter 11/09/2019 6:27 AM CDT [facility] ANION GAP 11 9 - 20 mmol/L 11/09/2019 6:27 AM T [facility] Blood Collection / Unknown 11/09/2019 4:15 AM CDT 11/09/2019 5:58 AM CDT us Cristiane Minor NP CHEMISTRY ORDERABLES Final Resu lt [facility] [address] [place] [address] documented in this encounter Visit Diagnoses Not on filedocumented in this encounter
--- OUTSIDE RECORDS SUMMARY | 2025-05-01 14:46 | XMS_ITS | Encounter Summary ---
Author Organization [facility] Address [address] [place] [address] Care Team Providers Care Drum Printer Name Role Phone Unavailable Primary Care Provider Unavailabl e Encounter Details Date Type Department Care Team (Latest Contact Info) Description 03/07/1998 Outpatient Historical [facility] [address] [place] [phone] Mehnaz Mays MD [address] [place], [place] [id number] Goiter, unspecified (Primary Dx) Social History Tobacco Use Types Packs/Day Years Used Date Smoking Tobacco: Never Assessed Comments Unknown Sex and Gender Information Value Date Recorded Sex Assigned at Not on file Legal Sex Female 3:20 AM BULB BRANDER Gender Identity Not on file Sexual Orientation Not on file documented as of this encounter Plan of Treatment Not on file documented as of this encounter Visit Diagnoses Diagnosis Goiter, unspecified- Primary documented in this encounter
--- OUTSIDE RECORDS SUMMARY | 2025-05-01 14:46 | XMS_ITS | Encounter Summary ---
Author Organization [facility] Address [address] [place] [address] Care Team Providers Care Before And After School Daycare Worker Name Role Phone Unavailable Primary Care Provider Unavailabl e Encounter Details Date Type Department Care Team (Late st Contact Info) Description 11/10/2019 Lab Requisition [facility] [address] [place] [address] Cristiane Minor NP [address] [place] [address] Social History Tobacco Use Types Packs/Day Years Used Date Smoking Tobacco: Never Assessed Comments Unknown Sex and Gender Information Value Date Recorded Sex Assigned at Not on file Legal Sex Female 3:20 AM GEODUCK DIVER Gender Identity Not on file Sexual Orientation Not on file documented as of this encounter Plan of Treatment Not on file documented as of this encounter Procedures Procedure Name Priority Date/Time Associated Diagnosis Comments BLOOD CULTURE Stat 11/10/2019 11:55 AM CDT documented in this encounter Results * BLOOD CULTURE (11/10/2019 11:55 AM CDT) BLOOD CULTURE No growth 11/15/2019 12:49 PM CDT [facility] [employer] [facility] Blood (Peripheral) Collection / Unknown 11/10/2019 11:55 AM CDT 11/10/2019 12:18 PM CDT us Cristiane Minor NP MICROBIOLOGY - GENERAL ORDERABL ES Final Result [facility] [employer] [facility] [address] [place] [address] documented in this encounter Visit Diagnoses Not on filedocumented in this encounter
--- OUTSIDE RECORDS SUMMARY | 2025-05-01 14:46 | XMS_ITS | Encounter Summary ---
Author Organization [facility] Address [address] [place] [address] Care Team Providers Care Gripper Attacher Name Role Phone Unavailable Primary Care Provider Unavailabl e Encounter Details Date Type Department Care Team (Latest Contact Info) Description 01/28/2002 Outpatient Historical [facility] Augustin Can MD ESOPHAGEAL REFLUX (Primary Dx) Social History Tobacco Use Types Packs/Day Years Used Date Smoking Tobacco: Never Assessed Comments Unknown Sex and Gender Information Value Date Recorded Sex Assigned at Not on file Legal Sex Female 3:20 AM ASSISTANT SURVEYOR Gender Identity Not on file Sexual Orientation Not on file documented as of this encounter Plan of Treatment Not on file documented as of this encounter Visit Diagnoses Diagnosis Esophageal reflux- Primary documented in this encounter
--- OUTSIDE RECORDS SUMMARY | 2025-05-01 14:46 | XMS_ITS | Encounter Summary ---
Author Organization [facility] Address [address] [place] [address] Care Team Providers Care Self Pay Specialist Name Role Phone Unavailable Primary Care Provider Unavailabl e Encounter Details Date Type Department Care Team (Latest Contact Info) Description 12/03/2001 Outpatient Historical HIS [facility] Augustin Can MD ESOPHAGEAL REFLUX (Primary Dx) Social History Tobacco Use Types Packs/Day Years Used Date Smoking Tobacco: Never Assessed Comments Unknown Sex and Gender Information Value Date Recorded Sex Assigned at Not on file Legal Sex Female 3:20 AM MOUTHPIECE MAKER Gender Identity Not on file Sexual Orientation Not on file documented as of this encounter Plan of Treatment Not on file documented as of this encounter Visit Diagnoses Diagnosis Esophageal reflux- Primary documented in this encounter
== END 2025-04-24 11:56 | disposition home health service (06) ==
LOC: ER 14:05 → MEDSURG 15:30
PROVIDERS: Clinical Nurse Specialist Acute Care; Admitting Provider Internal Medicine; Emergency Provider Emergency Medicine; PCP Family Medicine; Visit Provider Registered Nurse
DX: N30.01 Acute cystitis with hematuria (principal); R79.89 Other specified abnormal findings of blood chemistry; R29.6 Repeated falls; G24.01 Drug induced subacute dyskinesia; E11.9 Type 2 diabetes mellitus without complications; I10 Essential (primary) hypertension; Z79.82 Long term (current) use of aspirin; K21.9 Gastro-esophageal reflux disease without esophagitis; Z79.891 Long term (current) use of opiate analgesic; E78.5 Hyperlipidemia, unspecified; G25.81 Restless legs syndrome; G47.33 Obstructive sleep apnea (adult) (pediatric); Z86.73 Personal history of transient ischemic attack (TIA), and cerebral infarction without residual deficits; D64.9 Anemia, unspecified; N17.9 Acute kidney failure, unspecified; Z66 Do not resuscitate; J44.9 Chronic obstructive pulmonary disease, unspecified; F31.9 Bipolar disorder, unspecified; I35.0 Nonrheumatic aortic (valve) stenosis; Z87.891 Personal history of nicotine dependence
CPT/HCPCS: 36415; 36416; 71045; 80048; 80053; 81001; 82962; 83036; 83605; 83735; 83880; 84100; 85025; 87040; 87077; 87086; 87186; 87486; 87581; 87633; 87637; 93005; 94760; 96361; 96374; 99285; G0378; J0692; J7030; J9999